=== PATIENT | female | born 1940 | race Caucasian/White ===

== ENCOUNTER → 2016-10-23 | Outpatient (REF) | payer MEDICARE ==
[2016-10-23 11:42] LABS: BASO # 0.1 K/mm3 (0.0-0.2); BASO % 1.4 % (0.0-1.0); EOS # 0.6 K/mm3 (0.0-0.50); EOS % 6.3 % (0.0-3.0); LYMPH # 2.3 K/mm3 (1.5-4.5); LYMPH % 22.4 % (24.0-44.0); MEAN CORPUSCULAR HEMOGLOBIN 28.6 pg (27.0-33.0); MEAN CORPUSCULAR HGB CONC 32.1 g/dl (32.0-36.5); MEAN CORPUSCULAR VOLUME 89.1 fl (80.0-96.0); MONO # 0.6 K/mm3 (0.0-0.8); MONO % 5.8 % (0.0-5.0); NEUTROPHILS # 5.9 K/mm3 (1.8-7.7); NEUTROPHILS % 62.2 % (36.0-66.0); WHITE BLOOD COUNT 9.4 K/mm3 (4.0-10.0)
[2016-10-23 11:59] LABS: ALBUMIN/GLOBULIN RATIO 0.65 (1.00-1.93); ALKALINE PHOSPHATASE 75 U/L (45-117); ALT/SGPT 18 U/L (12-78); ANION GAP 7 MEQ/L (8-16); AST/SGOT 13 U/L (15-37); BILIRUBIN,TOTAL 0.6 MG/DL (0.2-1.0); BLOOD UREA NITROGEN 24 MG/DL (7-18); CALCIUM LEVEL 8.5 MG/DL (8.8-10.2); CARBON DIOXIDE LEVEL 30 MEQ/L (21-32); CHLORIDE LEVEL 104 MEQ/L (98-107); CREATININE FOR GFR 0.86 MG/DL (0.55-1.02); GLOMERULAR FILTRATION RATE > 60.0 (>39); GLUCOSE, FASTING 145 MG/DL (83-110); POTASSIUM SERUM 4.5 MEQ/L (3.5-5.1); SODIUM LEVEL 141 MEQ/L (136-145); TOTAL PROTEIN 7.6 GM/DL (6.4-8.2)
== END ==
LOC: M LABDRAWC 11:27
PROVIDERS: ATTEND Internal Medicine
DX: N18.3 Chronic kidney disease, stage 3 (moderate) (principal); Z79.899 Other long term (current) drug therapy

== ENCOUNTER → 2017-01-02 | Outpatient (CLI) | payer MEDICARE ==
--- NOTE | 2017-01-02 12:02 | REP ---
Chest two views HISTORY: Dyspnea Comparison: None A calcified granuloma is present in the left lower lobe. The right lung is clear. The heart is normal in size. The pulmonary vasculature is normal in appearance. The bony structure is intact. IMPRESSION: No acute disease. Signed by Tarun Alcaraz MD 01/02/2017 11:53 A
== END ==
LOC: M WUC 11:34
PROVIDERS: ATTEND Internal Medicine Rheumatology
DX: M05.79 Rheumatoid arthritis with rheumatoid factor of multiple sites without organ or systems involvement (principal); R06.00 Dyspnea, unspecified

== ENCOUNTER → 2017-01-20 | Outpatient (CLI) | payer MEDICARE ==
--- NOTE | 2017-01-20 08:42 | REP ---
Clinical: Elevated liver function tests. Technique: Real time bowens scale ultrasound using curved array transducer. Findings: The liver demonstrates increased echogenicity and poor through transmission suggesting hepatocellular disease and fatty infiltration. No focal hepatic lesions are identified. The pancreas is normal in appearance. The gallbladder is unremarkable and without gallstones, wall thickening, or pericholecystic fluid. No biliary ductal dilatation is appreciated and the common bile duct measures 6 mm diameter. The right kidney is normal in reniform shape without hydronephrosis and measures 10.9 x 5.1 x 4.7 cm. No ascites. Impression: Hepatosteatosis and hepatocellular disease without focal hepatic lesion. Signed by Sabino Cardenas MD 01/20/2017 08:33 A
== END ==
LOC: M RAD 07:58
PROVIDERS: ATTEND Internal Medicine
DX: K76.0 Fatty (change of) liver, not elsewhere classified (principal)

== ENCOUNTER → 2017-03-13 | Outpatient (REF) | payer MEDICARE ==
[2017-03-13 12:01] LABS: ALBUMIN 3.1 GM/DL (3.2-5.2); ALBUMIN/GLOBULIN RATIO 0.67 (1.00-1.93); BILIRUBIN,DIRECT 0.1 MG/DL (0.0-0.2); BILIRUBIN,TOTAL 0.5 MG/DL (0.2-1.0); TOTAL PROTEIN 7.7 GM/DL (6.4-8.2)
== END ==
LOC: M LABDRAWC 11:00
PROVIDERS: ATTEND Internal Medicine
DX: K76.0 Fatty (change of) liver, not elsewhere classified (principal)

== ENCOUNTER → 2017-05-07 | Outpatient (REF) | payer MEDICARE ==
[2017-05-07 12:53] LABS: ANION GAP 11 MEQ/L (8-16); BLOOD UREA NITROGEN 33 MG/DL (7-18); CALCIUM LEVEL 8.9 MG/DL (8.8-10.2); CARBON DIOXIDE LEVEL 27 MEQ/L (21-32); CHLORIDE LEVEL 102 MEQ/L (98-107); CHOLESTEROL LEVEL 157 MG/DL (<200); CREATININE FOR GFR 0.95 MG/DL (0.55-1.02); GLOMERULAR FILTRATION RATE > 60.0 (>39); GLUCOSE, FASTING 152 MG/DL (83-110); POTASSIUM SERUM 4.4 MEQ/L (3.5-5.1); SODIUM LEVEL 140 MEQ/L (136-145); TRIGLYCERIDES LEVEL 93 MG/DL (<150)
[2017-05-07 13:03] LABS: BASO # 0.1 K/mm3 (0.0-0.2); BASO % 0.9 % (0.0-1.0); EOS # 0.5 K/mm3 (0.0-0.50); EOS % 4.7 % (0.0-3.0); LYMPH % 17.4 % (24.0-44.0); MEAN CORPUSCULAR HEMOGLOBIN 28.9 pg (27.0-33.0); MEAN CORPUSCULAR HGB CONC 33.1 g/dl (32.0-36.5); MEAN CORPUSCULAR VOLUME 87.2 fl (80.0-96.0); MONO # 0.7 K/mm3 (0.0-0.8); MONO % 5.8 % (0.0-5.0); NEUTROPHILS # 7.8 K/mm3 (1.8-7.7); NEUTROPHILS % 68.8 % (36.0-66.0); RED CELL DISTRIBUTION WIDTH 13.1 % (11.5-14.5); WHITE BLOOD COUNT 11.4 K/mm3 (4.0-10.0)
== END ==
LOC: M LABDRAWC 11:43
PROVIDERS: ATTEND Internal Medicine
DX: N18.3 Chronic kidney disease, stage 3 (moderate) (principal); E11.9 Type 2 diabetes mellitus without complications; E78.5 Hyperlipidemia, unspecified

== ENCOUNTER → 2017-05-07 | Outpatient (REF) | payer MEDICARE | LOC: M SFHCCLAY 08:17 | PROVIDERS: ATTEND Family Medicine | DX: E11.9 Type 2 diabetes mellitus without complications (principal) ==

== ENCOUNTER → 2017-09-02 | Outpatient (REF) | payer MEDICARE ==
[2017-09-02 11:29] LABS: HEMATOCRIT 42.7 % (36.0-47.0); HEMOGLOBIN 13.5 g/dl (12.0-16.0); MEAN CORPUSCULAR HEMOGLOBIN 27.6 pg (27.0-33.0); MEAN CORPUSCULAR HGB CONC 31.6 g/dl (32.0-36.5); MEAN CORPUSCULAR VOLUME 87.3 fl (80.0-96.0); PLATELET COUNT, AUTOMATED 448 10^3/uL (150-450); RED BLOOD COUNT 4.89 10^6/uL (4.00-5.40); RED CELL DISTRIBUTION WIDTH 13.6 % (11.5-14.5); WHITE BLOOD COUNT 10.8 10^3/uL (4.0-10.0)
[2017-09-02 11:32] LABS: APPEARANCE, URINE HAZY (CLEAR); BACTERIA, URINE AUTO NEGATIVE (NEGATIVE); BILIRUBIN, URINE AUTO NEGATIVE (NEGATIVE); BLOOD, URINE BLOOD NEGATIVE (NEGATIVE); COLOR, URINE YELLOW (YELLOW); GLUCOSE, URINE (UA) AUTO NEGATIVE (NEGATIVE); KETONE, URINE AUTO NEGATIVE (NEGATIVE); LEUKOCYTE ESTERASE, URINE AUTO NEGATIVE (NEGATIVE); NITRITE, URINE AUTO NEGATIVE (NEGATIVE); PROTEIN, URINE AUTO 2+ mg/dL (NEGATIVE); RBC, URINE AUTO 3 /HPF (0-3); SPECIFIC GRAVITY URINE AUTO 1.015 (1.002-1.035); SQUAMOUS EPITHELIAL CELL UR AU 3 /HPF (0-6); UROBILINOGEN, URINE AUTO 0.2 mg/dL (0.0-2.0); WBC, URINE AUTO 1 /HPF (0-3)
[2017-09-02 11:38] LABS: ALBUMIN 2.9 GM/DL (3.2-5.2); ALBUMIN/GLOBULIN RATIO 0.57 (1.00-1.93); ALKALINE PHOSPHATASE 76 U/L (45-117); ALT/SGPT 18 U/L (12-78); ANION GAP 7 MEQ/L (8-16); AST/SGOT 14 U/L (7-37); BILIRUBIN,TOTAL 0.4 MG/DL (0.2-1.0); BLOOD UREA NITROGEN 26 MG/DL (7-18); CALCIUM LEVEL 8.2 MG/DL (8.8-10.2); CARBON DIOXIDE LEVEL 30 MEQ/L (21-32); CHLORIDE LEVEL 105 MEQ/L (98-107); CREATININE FOR GFR 0.94 MG/DL (0.55-1.02); GLOMERULAR FILTRATION RATE > 60.0 (>39); GLUCOSE, FASTING 135 MG/DL (83-110); POTASSIUM SERUM 4.6 MEQ/L (3.5-5.1); SODIUM LEVEL 142 MEQ/L (136-145)
[2017-09-02 12:19] LABS: CREATININE, URINE 79.6 MG/DL; MAU/CREAT RATIO 1507.5 MCG/MG (0.0-30.0); URINE TOTAL PROTEIN 148.8 MG/DL (0-12)
[2017-09-04 13:24] LABS: UPEP INTERPRETATION M-SPIKE IN GAMMA; URINE VOLUME RANDOM ML
== END ==
LOC: M LAB REF 11:13
DX: N18.3 Chronic kidney disease, stage 3 (moderate) (principal); E11.9 Type 2 diabetes mellitus without complications; E55.9 Vitamin D deficiency, unspecified
CPT/HCPCS: 80053

== ENCOUNTER → 2017-09-02 | Outpatient (REF) | payer MEDICARE ==
[2017-09-02 11:45] LABS: ESTIMATED AVERAGE GLUCOSE 174 MG/DL (60-110); HEMOGLOBIN A1c 7.7 %
[2017-09-04 14:13] LABS: VITAMIN D 1,25 DIHYDROXY 32.6 pg/mL (19.9-79.3)
== END ==
LOC: M SFHCCLAY 08:25
DX: E11.9 Type 2 diabetes mellitus without complications (principal); E55.9 Vitamin D deficiency, unspecified

== ENCOUNTER → 2017-10-06 | Outpatient (CLI) | payer MEDICARE | LOC: M CLY 14:19 | DX: J40 Bronchitis, not specified as acute or chronic (principal); I51.7 Cardiomegaly; J98.4 Other disorders of lung | CPT/HCPCS: 71046; G0463 ==

== ENCOUNTER → 2017-10-24 | Outpatient (REF) | payer MEDICARE | LOC: M LAB REF 16:28 | DX: M54.5 Low back pain (principal); R31.9 Hematuria, unspecified | CPT/HCPCS: 87086 ==

== ENCOUNTER → 2017-12-01 | Outpatient (REF) | payer MEDICARE ==
[2017-12-01 11:27] LABS: ANION GAP 7 MEQ/L (8-16); BLOOD UREA NITROGEN 30 MG/DL (7-18); CALCIUM LEVEL 8.3 MG/DL (8.8-10.2); CARBON DIOXIDE LEVEL 28 MEQ/L (21-32); CHLORIDE LEVEL 107 MEQ/L (98-107); CREATININE FOR GFR 1.05 MG/DL (0.55-1.30); GLOMERULAR FILTRATION RATE 54.5 (>39); GLUCOSE, FASTING 147 MG/DL (70-100); POTASSIUM SERUM 4.6 MEQ/L (3.5-5.1); SODIUM LEVEL 142 MEQ/L (136-145)
[2017-12-01 11:32] LABS: ESTIMATED AVERAGE GLUCOSE 197 MG/DL (60-110); HEMOGLOBIN A1c 8.5 %
== END ==
LOC: M SFHCCLAY 08:17
DX: E11.9 Type 2 diabetes mellitus without complications (principal)
CPT/HCPCS: 83036

== ENCOUNTER → 2018-02-16 | Outpatient (REF) | payer MEDICARE ==
[2018-02-16 14:58] LABS: ANION GAP 13 MEQ/L (8-16); BLOOD UREA NITROGEN 26 MG/DL (7-18); CALCIUM LEVEL 8.8 MG/DL (8.8-10.2); CARBON DIOXIDE LEVEL 24 MEQ/L (21-32); CHLORIDE LEVEL 105 MEQ/L (98-107); CREATININE FOR GFR 0.91 MG/DL (0.55-1.30); GLOMERULAR FILTRATION RATE > 60.0 (>39); GLUCOSE, FASTING 116 MG/DL (70-100); POTASSIUM SERUM 4.6 MEQ/L (3.5-5.1); SODIUM LEVEL 142 MEQ/L (136-145)
[2018-02-16 16:44] LABS: ESTIMATED AVERAGE GLUCOSE 180 MG/DL (60-110); HEMOGLOBIN A1c 7.9 %
== END ==
LOC: M LABDRAWC 11:47
DX: M06.9 Rheumatoid arthritis, unspecified (principal); I10 Essential (primary) hypertension; E11.21 Type 2 diabetes mellitus with diabetic nephropathy; M85.80 Other specified disorders of bone density and structure, unspecified site

== ENCOUNTER → 2018-02-16 | Outpatient (REF) | payer MEDICARE ==
[2018-02-16 12:37] LABS: HEMOGLOBIN 12.5 g/dl (12.0-15.5); MEAN CORPUSCULAR HEMOGLOBIN 26.9 pg (27.0-33.0); MEAN CORPUSCULAR HGB CONC 32.1 g/dl (32.0-36.5); MEAN CORPUSCULAR VOLUME 83.9 fl (80.0-96.0); PLATELET COUNT, AUTOMATED 478 10^3/uL (150-450); RED BLOOD COUNT 4.65 10^6/uL (4.00-5.40); RED CELL DISTRIBUTION WIDTH 14.2 % (11.5-14.5); WHITE BLOOD COUNT 11.3 10^3/uL (4.0-10.0)
[2018-02-16 13:19] LABS: APPEARANCE, URINE CLEAR (CLEAR); BACTERIA, URINE AUTO NEGATIVE (NEGATIVE); BILIRUBIN, URINE AUTO NEGATIVE (NEGATIVE); BLOOD, URINE BLOOD NEGATIVE (NEGATIVE); COLOR, URINE COLORLESS (YELLOW); GLUCOSE, URINE (UA) AUTO NEGATIVE (NEGATIVE); KETONE, URINE AUTO NEGATIVE (NEGATIVE); LEUKOCYTE ESTERASE, URINE AUTO NEGATIVE (NEGATIVE); NITRITE, URINE AUTO NEGATIVE (NEGATIVE); PROTEIN, URINE AUTO NEGATIVE (NEGATIVE); RBC, URINE AUTO 1 /HPF (0-3); SPECIFIC GRAVITY URINE AUTO 1.005 (1.002-1.035); SQUAMOUS EPITHELIAL CELL UR AU 1 /HPF (0-6); UROBILINOGEN, URINE AUTO 0.2 mg/dL (0.0-2.0); WBC, URINE AUTO 0 /HPF (0-3)
[2018-02-16 13:41] LABS: ALBUMIN/GLOBULIN RATIO 0.61 (1.00-1.93); ALKALINE PHOSPHATASE 87 U/L (45-117); ALT/SGPT 35 U/L (12-78); ANION GAP 11 MEQ/L (8-16); AST/SGOT 16 U/L (7-37); BILIRUBIN,TOTAL 0.6 MG/DL (0.2-1.0); BLOOD UREA NITROGEN 27 MG/DL (7-18); CALCIUM LEVEL 8.7 MG/DL (8.8-10.2); CARBON DIOXIDE LEVEL 26 MEQ/L (21-32); CHLORIDE LEVEL 106 MEQ/L (98-107); CHOLESTEROL LEVEL 131 MG/DL (<200); CHOLESTEROL RISK RATIO 2.787 (<5); GLOMERULAR FILTRATION RATE > 60.0 (>39); GLUCOSE, FASTING 116 MG/DL (70-100); HDL CHOLESTEROL 47 MG/DL (>40); LDL CHOLESTEROL 68.2 MG/DL (<100); NON-HDL-C 84 MG/DL; POTASSIUM SERUM 4.7 MEQ/L (3.5-5.1); SODIUM LEVEL 143 MEQ/L (136-145); TOTAL PROTEIN 7.9 GM/DL (6.4-8.2); TRIGLYCERIDES LEVEL 79 MG/DL (<150)
[2018-02-16 13:45] LABS: CREATININE, URINE < 13.0 MG/DL; MALB URINE SIEMENS 96.7 MG/L
[2018-02-16 22:25] LABS: ESTIMATED AVERAGE GLUCOSE 169 MG/DL (60-110); HEMOGLOBIN A1c 7.5 %
== END ==
LOC: M LABDRAWC 11:43
DX: N18.3 Chronic kidney disease, stage 3 (moderate) (principal); E78.4 Other hyperlipidemia; R73.9 Hyperglycemia, unspecified
CPT/HCPCS: 80053

== ENCOUNTER → 2018-02-16 | Outpatient (REF) | payer MEDICARE | LOC: M SFHCCLAY 09:07 | DX: Z00.00 Encounter for general adult medical examination without abnormal findings (principal) ==

== ENCOUNTER → 2018-06-19 | Outpatient (REF) | payer MEDICARE ==
[2018-06-19 11:58] LABS: ESTIMATED AVERAGE GLUCOSE 169 MG/DL (60-110); HEMOGLOBIN A1c 7.5 %
[2018-06-19 12:20] LABS: ALKALINE PHOSPHATASE 91 U/L (45-117); ALT/SGPT 41 U/L (12-78); ANION GAP 12 MEQ/L (8-16); AST/SGOT 24 U/L (7-37); BILIRUBIN,TOTAL 0.5 MG/DL (0.2-1.0); BLOOD UREA NITROGEN 31 MG/DL (7-18); CALCIUM LEVEL 8.4 MG/DL (8.8-10.2); CARBON DIOXIDE LEVEL 25 MEQ/L (21-32); CHLORIDE LEVEL 104 MEQ/L (98-107); CREATININE FOR GFR 0.93 MG/DL (0.55-1.30); GLOMERULAR FILTRATION RATE > 60.0 (>39); GLUCOSE, FASTING 127 MG/DL (70-100); POTASSIUM SERUM 4.8 MEQ/L (3.5-5.1); SODIUM LEVEL 141 MEQ/L (136-145)
[2018-06-19 12:21] LABS: ALBUMIN 2.9 GM/DL (3.2-5.2); ALBUMIN/GLOBULIN RATIO 0.62 (1.00-1.93); TOTAL PROTEIN 7.6 GM/DL (6.4-8.2)
== END ==
LOC: M SFHCCLAY 09:01
DX: E11.9 Type 2 diabetes mellitus without complications (principal)
CPT/HCPCS: 80053

== ENCOUNTER → 2018-09-14 | Outpatient (REF) | payer MEDICARE ==
[2018-09-14 12:09] LABS: HEMOGLOBIN A1c 7.7 %
== END ==
LOC: M SFHCCLAY 09:04
PROVIDERS: ATTEND Family Medicine
DX: E11.9 Type 2 diabetes mellitus without complications (principal)

== ENCOUNTER → 2018-09-14 | Outpatient (REF) | payer MEDICARE ==
[2018-09-14 12:14] LABS: BLOOD UREA NITROGEN 26 MG/DL (7-18); CALCIUM LEVEL 8.5 MG/DL (8.8-10.2); CARBON DIOXIDE LEVEL 23 MEQ/L (21-32); CHLORIDE LEVEL 104 MEQ/L (98-107); CREATININE FOR GFR 0.92 MG/DL (0.55-1.30); GLOMERULAR FILTRATION RATE > 60.0 (>39); GLUCOSE, FASTING 147 MG/DL (70-100); POTASSIUM SERUM 4.7 MEQ/L (3.5-5.1); SODIUM LEVEL 139 MEQ/L (136-145)
[2018-09-14 12:48] LABS: CREATININE, URINE 21.1 MG/DL; MAU/CREAT RATIO 725.1 MCG/MG (0.0-30.0)
== END ==
LOC: M LABDRAWC 11:17
PROVIDERS: ATTEND Internal Medicine
DX: N18.3 Chronic kidney disease, stage 3 (moderate) (principal); E11.22 Type 2 diabetes mellitus with diabetic chronic kidney disease

== ENCOUNTER 2018-10-15 08:52 | Outpatient (CLI) | payer MEDICARE ==
[2018-10-15] VITALS (8 sets, daily range): BP systolic 140–180; BP diastolic 63–85
[2018-10-15] MEDS ORDERED: ACETAMINOPHEN 650MG PO PRIOR TO INFUSION PO ONE (10:00)
[2018-10-15] MEDS ORDERED: diphenhydrAMINE 25MG PO PRIOR TO INFUSION PO ONE (10:00)
[2018-10-15] MEDS ORDERED: inFLIXimab INJECTION 300 MG in NS 220 ML IV ONE (10:00)
[2018-10-15] MEDS ORDERED: FILTER 1.2 MICRON (ADULT TPN/MANNITOL/REMICADE) XX ONE (10:00)
[2018-10-15] MEDS ORDERED: NS 1,000 ML IV SCH (10:00)
== END 2018-10-15 12:55 | disposition home or self-care (01) ==
LOC: M INFU 08:52
PROVIDERS: ATTEND Internal Medicine Rheumatology
DX: M06.9 Rheumatoid arthritis, unspecified (principal)
CPT/HCPCS: 96413; 96415; J1745

== ENCOUNTER 2018-10-27 13:03 | Outpatient (CLI) | payer MEDICARE ==
[2018-10-27] VITALS (9 sets, daily range): BP systolic 142–189; BP diastolic 60–80
[2018-10-27] MEDS: ACETAMINOPHEN 650MG PO PRIOR TO INFUSION PO ONE ×2 (13:59→14:02)
[2018-10-27] MEDS: diphenhydrAMINE 25MG PO PRIOR TO INFUSION PO ONE ×2 (13:59→14:03)
[2018-10-27] MEDS ORDERED: FILTER 1.2 MICRON (ADULT TPN/MANNITOL/REMICADE) XX ONE (14:00)
[2018-10-27] MEDS ORDERED: inFLIXimab INJECTION 300 MG in NS 220 ML IV ONE (14:00)
[2018-10-27] MEDS ORDERED: NS 1,000 ML IV SCH (14:00)
== END 2018-10-27 16:30 | disposition home or self-care (01) ==
LOC: M INFU 13:03
PROVIDERS: ATTEND Internal Medicine Rheumatology
DX: M06.9 Rheumatoid arthritis, unspecified (principal)
CPT/HCPCS: 96413; 96415; J1745

== ENCOUNTER → 2018-12-09 | Outpatient (REF) | payer MEDICARE ==
[2018-12-09 16:45] LABS: BASO # 0.2 10^3/uL (0.0-0.2); BASO % 1.3 % (0.0-1.0); EOS # 0.7 10^3/uL (0.0-0.50); EOS % 4.6 % (0.0-3.0); HEMATOCRIT 41.5 % (36.0-47.0); LYMPH # 2.6 10^3/uL (1.5-4.5); LYMPH % 17.8 % (24.0-44.0); MEAN CORPUSCULAR HEMOGLOBIN 27.5 pg (27.0-33.0); MEAN CORPUSCULAR HGB CONC 31.3 g/dl (32.0-36.5); MEAN CORPUSCULAR VOLUME 87.9 fl (80.0-96.0); MONO # 1.3 10^3/uL (0.0-0.8); MONO % 9.3 % (0.0-5.0); NEUTROPHILS # 9.5 10^3/uL (1.8-7.7); NEUTROPHILS % 66.6 % (36.0-66.0); PLATELET COUNT, AUTOMATED 439 10^3/uL (150-450); RED BLOOD COUNT 4.72 10^6/uL (4.00-5.40); WHITE BLOOD COUNT 14.3 10^3/uL (4.0-10.0)
[2018-12-09 16:53] LABS: BILIRUBIN,TOTAL 0.4 MG/DL (0.2-1.0); C REACTIVE PROTEIN QUANTITATIV 1.62 MG/DL (0.00-0.30); CALCIUM LEVEL 8.5 MG/DL (8.8-10.2); CREATININE FOR GFR 1.15 MG/DL (0.55-1.30); GLOMERULAR FILTRATION RATE 48.8 (>39); POTASSIUM SERUM 4.7 MEQ/L (3.5-5.1); TOTAL PROTEIN 7.5 GM/DL (6.4-8.2)
[2018-12-09 18:37] LABS: ERYTHROCYTE SEDIMENTATION RATE 42 mm/hr (0-30)
== END ==
LOC: M SFHCPLAZ 14:13
PROVIDERS: ATTEND Internal Medicine Rheumatology
DX: M06.9 Rheumatoid arthritis, unspecified (principal)
CPT/HCPCS: 36415; 80053; 85025; 85652; 86140; G0463

== ENCOUNTER → 2019-03-08 | Outpatient (REF) | payer MEDICARE ==
[2019-03-08 11:55] LABS: BASO # 0.2 10^3/uL (0.0-0.2); BASO % 1.6 % (0.0-1.0); EOS # 0.6 10^3/uL (0.0-0.50); EOS % 6.3 % (0.0-3.0); HEMOGLOBIN 13.1 g/dl (12.0-15.5); LYMPH # 2.2 10^3/uL (1.5-4.5); LYMPH % 21.6 % (24.0-44.0); MEAN CORPUSCULAR HEMOGLOBIN 28.7 pg (27.0-33.0); MEAN CORPUSCULAR VOLUME 89.7 fl (80.0-96.0); MONO # 0.8 10^3/uL (0.0-0.8); MONO % 8.1 % (0.0-5.0); NEUTROPHILS # 6.3 10^3/uL (1.8-7.7); PLATELET COUNT, AUTOMATED 492 10^3/uL (150-450); RED BLOOD COUNT 4.57 10^6/uL (4.00-5.40); WHITE BLOOD COUNT 10.1 10^3/uL (4.0-10.0)
[2019-03-08 12:19] LABS: ERYTHROCYTE SEDIMENTATION RATE 40 mm/hr (0-30)
[2019-03-08 12:30] LABS: BILIRUBIN,TOTAL 0.5 MG/DL (0.2-1.0); C REACTIVE PROTEIN QUANTITATIV 1.23 MG/DL (0.00-0.30); CALCIUM LEVEL 8.8 MG/DL (8.8-10.2); CHOLESTEROL RISK RATIO 2.901 (<5); CREATININE FOR GFR 1.07 MG/DL (0.55-1.30); GLOMERULAR FILTRATION RATE 53.1 (>39); POTASSIUM SERUM 4.7 MEQ/L (3.5-5.1); TOTAL PROTEIN 7.5 GM/DL (6.4-8.2)
[2019-03-08 12:57] LABS: HEMOGLOBIN A1c 8.3 %
== END ==
LOC: M SFHCCLAY 08:46
PROVIDERS: ATTEND Family Medicine
DX: M06.9 Rheumatoid arthritis, unspecified (principal); E11.21 Type 2 diabetes mellitus with diabetic nephropathy

== ENCOUNTER 2019-04-01 10:55 | Outpatient (CLI) | payer MEDICARE ==
[~2019-04-01] VITALS: Ht 151.1 cm; Wt 75.0 kg
[2019-04-01 10:55] VITALS: BP 152/60
[2019-04-01] MEDS ORDERED: FILTER 1.2 MICRON (ADULT TPN/MANNITOL/REMICADE) XX ONE (11:15)
[2019-04-01] MEDS ORDERED: methylPREDNISolone INJ 40 MG/1 ML VIAL (J2920) IV ONE (11:30)
[2019-04-01] MEDS ORDERED: ACETAMINOPHEN 650MG ER TAB (TYLENOL ARTHRITIS) PO ONE (11:30)
[2019-04-01] MEDS ORDERED: NS 1,000 ML IV SCH (11:30)
[2019-04-01] MEDS ORDERED: diphenhydrAMINE 25 MG CAP PO ONE (11:30)
[2019-04-01] MEDS ORDERED: ALBUTEROL SULFATE 2.5 MG/0.5 ML INH NEB SOLN INH PRN (12:00)
[2019-04-01] MEDS ORDERED: inFLIXimab INJECTION 300 MG in NS 220 ML IV ONE (12:00)
[2019-04-01] MEDS ORDERED: methylPREDNISolone INJ 125 MG/2 ML VIAL (J2930) IV PRN (12:00)
[2019-04-01] MEDS ORDERED: EPINEPHrine INJ 1 MG/ML 1ML AMP IM PRN (12:00)
[2019-04-01] MEDS ORDERED: diphenhydrAMINE INJ 50MG/ML VIAL (J1200) IV PRN (12:00)
[2019-04-01] MEDS ORDERED: PROPOFOL 200 MG/20 ML VIAL As Ordered ONE (12:20)
[2019-04-01] MEDS ORDERED: LIDOCAINE 2% INJ 100 MG/5 ML SDV (FOR ANES.) As Ordered ONE (12:20)
[2019-04-01 13:10] VITALS: BP 140/65
[2019-04-01] MEDS ORDERED: ACCU40TA PO (13:48)
[2019-04-01] MEDS ORDERED: NORV5TAB PO (13:48)
[2019-04-01] MEDS ORDERED: CLAR5TAB11 PO (13:52)
[2019-04-01] MEDS ORDERED: GLIM2TAB PO (13:52)
[2019-04-01] MEDS ORDERED: PRED20TA PO (13:52)
[2019-04-01] MEDS ORDERED: LASI20TA3 PO (13:52)
[2019-04-01 13:55] VITALS: BP 139/65
[2019-04-01 14:10] VITALS: BP 128/72
== END 2019-04-01 14:10 | disposition home or self-care (01) ==
LOC: M INFU 10:55
PROVIDERS: ATTEND Internal Medicine Rheumatology
DX: M06.9 Rheumatoid arthritis, unspecified (principal)
CPT/HCPCS: 96413; J1745; J2920

== ENCOUNTER 2019-05-27 10:48 | Outpatient (CLI) | payer MEDICARE ==
[~2019-05-27] VITALS: Ht 149.9 cm; Wt 76.7 kg
[~2019-05-27 10:48] MED LIST: ACCU40TA PO; CLAR5TAB11 PO; GLIM2TAB PO; LASI20TA3 PO; NORV5TAB PO; PRED20TA PO
[2019-05-27 10:50] VITALS: BP 167/59
[2019-05-27] MEDS ORDERED: NS 1,000 ML IV SCH (11:30)
[2019-05-27] MEDS ORDERED: diphenhydrAMINE 25 MG CAP PO ONE (11:30)
[2019-05-27] MEDS ORDERED: ACETAMINOPHEN 650MG ER TAB (TYLENOL ARTHRITIS) PO ONE (11:30)
[2019-05-27] MEDS ORDERED: EPINEPHrine INJ 1 MG/ML 1ML AMP IM PRN (11:30)
[2019-05-27] MEDS ORDERED: ALBUTEROL SULFATE 2.5 MG/0.5 ML INH NEB SOLN INH PRN (11:30)
[2019-05-27] MEDS ORDERED: methylPREDNISolone INJ 125 MG/2 ML VIAL (J2930) IV PRN (11:30)
[2019-05-27] MEDS ORDERED: inFLIXimab INJECTION 300 MG in NS 220 ML IV ONE (11:30)
[2019-05-27] MEDS ORDERED: FILTER 1.2 MICRON (ADULT TPN/MANNITOL/REMICADE) XX ONE (11:30)
[2019-05-27] MEDS ORDERED: diphenhydrAMINE INJ 50MG/ML VIAL (J1200) IV PRN (11:30)
[2019-05-27 11:55] VITALS: BP 141/72
[2019-05-27] MEDS ORDERED: methylPREDNISolone INJ 125 MG/2 ML VIAL (J2930) IV ONE (12:00)
[2019-05-27 12:55] VITALS: BP 147/79
== END 2019-05-27 12:55 | disposition home or self-care (01) ==
LOC: M INFU 10:48
PROVIDERS: ATTEND Internal Medicine Rheumatology
DX: M06.9 Rheumatoid arthritis, unspecified (principal)
CPT/HCPCS: 96375; 96413; J1745; J2930

== ENCOUNTER → 2019-06-07 | Outpatient (REF) | payer MEDICARE ==
[~2019-06-07] MED LIST changes: -GLIM2TAB PO; +GLIM2TAB4 PO; +INFL10VL IV
[2019-06-07 12:23] LABS: HEMOGLOBIN A1c 8.1 %
[2019-06-07 12:30] LABS: CALCIUM LEVEL 8.7 MG/DL (8.8-10.2); CREATININE FOR GFR 1.05 MG/DL (0.55-1.30); GLOMERULAR FILTRATION RATE 54.2 (>39); POTASSIUM SERUM 4.6 MEQ/L (3.5-5.1)
[2019-06-08 15:25] LABS: ALBUMIN 3.1 GM/DL (3.2-5.2); BILIRUBIN,DIRECT 0.1 MG/DL (0.0-0.2); BILIRUBIN,TOTAL 0.5 MG/DL (0.2-1.0); C REACTIVE PROTEIN QUANTITATIV 1.1 MG/DL (0.00-0.30); TOTAL PROTEIN 7.2 GM/DL (6.4-8.2)
== END ==
LOC: M SFHCCLAY 09:00
PROVIDERS: ATTEND Family Medicine
DX: E11.9 Type 2 diabetes mellitus without complications (principal); I10 Essential (primary) hypertension; M06.9 Rheumatoid arthritis, unspecified

== ENCOUNTER 2019-07-22 10:51 | Outpatient (CLI) | payer MEDICARE ==
[~2019-07-22] VITALS: Ht 149.9 cm; Wt 76.7 kg
[~2019-07-22 10:51] MED LIST changes: +GLIM2TAB2 PO; -GLIM2TAB4 PO; -INFL10VL IV
[2019-07-22 10:55] VITALS: BP 147/69
[2019-07-22] MEDS ORDERED: FILTER 1.2 MICRON (ADULT TPN/MANNITOL/REMICADE) XX ONE (11:15)
[2019-07-22] MEDS ORDERED: ALBUTEROL SULFATE 2.5 MG/0.5 ML INH NEB SOLN INH PRN (11:15)
[2019-07-22] MEDS ORDERED: diphenhydrAMINE 25 MG CAP PO ONE (11:15)
[2019-07-22] MEDS ORDERED: EPINEPHrine INJ 1 MG/ML 1ML AMP IM PRN (11:15)
[2019-07-22] MEDS ORDERED: ACETAMINOPHEN 650MG ER TAB (TYLENOL ARTHRITIS) PO ONE (11:15)
[2019-07-22] MEDS ORDERED: NS 1,000 ML IV SCH (11:15)
[2019-07-22] MEDS ORDERED: methylPREDNISolone INJ 125 MG/2 ML VIAL (J2930) IV PRN (11:15)
[2019-07-22] MEDS ORDERED: diphenhydrAMINE INJ 50MG/ML VIAL (J1200) IV PRN (11:15)
[2019-07-22] MEDS ORDERED: inFLIXimab INJECTION 300 MG in NS 220 ML IV ONE (11:30)
[2019-07-22] MEDS ORDERED: INFL10VL IV (11:48)
[2019-07-22 13:00] VITALS: BP 140/70
== END 2019-07-22 13:00 | disposition home or self-care (01) ==
LOC: M INFU 10:51
PROVIDERS: ATTEND Internal Medicine Rheumatology
DX: M06.9 Rheumatoid arthritis, unspecified (principal)
CPT/HCPCS: 96413; J1745

== ENCOUNTER → 2019-09-20 | Outpatient (REF) | payer MEDICARE ==
[~2019-09-20] MED LIST changes: -GLIM2TAB2 PO; +GLIM2TAB4 PO; +INFL10VL IV
[2019-09-20 11:42] LABS: BASO # 0.2 10^3/uL (0.0-0.2); BASO % 1.3 % (0.0-1.0); EOS # 0.6 10^3/uL (0.0-0.5); EOS % 4.5 % (0.0-3.0); HEMOGLOBIN 12.2 g/dl (12.0-15.5); LYMPH # 2.2 10^3/uL (1.5-5.0); LYMPH % 17.8 % (24.0-44.0); MEAN CORPUSCULAR HEMOGLOBIN 28.3 pg (27.0-33.0); MEAN CORPUSCULAR HGB CONC 31.3 g/dl (32.0-36.5); MEAN CORPUSCULAR VOLUME 90.5 fl (80.0-96.0); MONO # 1.1 10^3/uL (0.0-0.8); MONO % 8.9 % (0.0-5.0); NEUTROPHILS # 8.4 10^3/uL (1.5-8.5); NEUTROPHILS % 67.3 % (36.0-66.0); PLATELET COUNT, AUTOMATED 467 10^3/uL (150-450); RED BLOOD COUNT 4.31 10^6/uL (4.00-5.40); WHITE BLOOD COUNT 12.5 10^3/uL (4.0-10.0)
[2019-09-20 12:08] LABS: ALBUMIN 2.9 GM/DL (3.2-5.2); BILIRUBIN,DIRECT 0.2 MG/DL (0.0-0.2); BILIRUBIN,TOTAL 0.5 MG/DL (0.2-1.0); C REACTIVE PROTEIN QUANTITATIV 2.72 MG/DL (0.00-0.30); CALCIUM LEVEL 8.5 MG/DL (8.8-10.2); CREATININE FOR GFR 1.05 MG/DL (0.55-1.30); GLOMERULAR FILTRATION RATE 54.2 (>39); POTASSIUM SERUM 4.6 MEQ/L (3.5-5.1); TOTAL PROTEIN 7.6 GM/DL (6.4-8.2)
[2019-09-20 12:11] LABS: HEMOGLOBIN A1c 7.5 %
== END ==
LOC: M SFHCCLAY 08:12
PROVIDERS: ATTEND Family Medicine
DX: M06.9 Rheumatoid arthritis, unspecified (principal); E11.9 Type 2 diabetes mellitus without complications

== ENCOUNTER 2019-09-22 10:30 | Outpatient (CLI) | payer MEDICARE ==
[~2019-09-22] VITALS: Ht 149.9 cm; Wt 76.7 kg
[2019-09-22 10:35] VITALS: BP 158/68
[2019-09-22] MEDS ORDERED: NS 1,000 ML IV SCH (10:45)
[2019-09-22] MEDS ORDERED: methylPREDNISolone INJ 125 MG/2 ML VIAL (J2930) IV PRN (10:45)
[2019-09-22] MEDS ORDERED: ACETAMINOPHEN 650MG ER TAB (TYLENOL ARTHRITIS) PO ONE (10:45)
[2019-09-22] MEDS ORDERED: diphenhydrAMINE INJ 50MG/ML VIAL (J1200) IV PRN (10:45)
[2019-09-22] MEDS ORDERED: diphenhydrAMINE 25 MG CAP PO ONE (10:45)
[2019-09-22] MEDS ORDERED: ALBUTEROL SULFATE 2.5 MG/0.5 ML INH NEB SOLN INH PRN (10:45)
[2019-09-22] MEDS ORDERED: EPINEPHrine INJ 1 MG/ML 1ML VIAL IM PRN (10:45)
[2019-09-22] MEDS ORDERED: inFLIXimab INJECTION 300 MG in NS 220 ML IV ONE (11:00)
[2019-09-22 12:18] VITALS: BP 150/70
== END 2019-09-22 12:18 | disposition home or self-care (01) ==
LOC: M INFU 10:30
PROVIDERS: ATTEND Internal Medicine Rheumatology
DX: M06.9 Rheumatoid arthritis, unspecified (principal)
CPT/HCPCS: 96413; J1745

== ENCOUNTER 2019-10-12 21:34 | Inpatient (IN) | payer MEDICARE ==
[~2019-10-12] VITALS: Ht 152.4 cm; Wt 73.2 kg
[2019-10-12 22:00] LABS: BASO # 0.2 10^3/uL (0.0-0.2); BASO % 0.6 % (0.0-1.0); EOS # 0.2 10^3/uL (0.0-0.5); EOS % 0.6 % (0.0-3.0); HEMATOCRIT 36.9 % (36.0-47.0); LYMPH # 2.3 10^3/uL (1.5-5.0); MEAN CORPUSCULAR HGB CONC 29.8 g/dl (32.0-36.5); MEAN CORPUSCULAR VOLUME 90.7 fl (80.0-96.0); MONO % 10.8 % (0.0-5.0); NEUTROPHILS % 77.2 % (36.0-66.0); PLATELET COUNT, AUTOMATED 613 10^3/uL (150-450); RED BLOOD COUNT 4.07 10^6/uL (4.00-5.40); WHITE BLOOD COUNT 23.3 10^3/uL (4.0-10.0)
[2019-10-12 22:24] LABS: MONO # 2.5 10^3/uL (0.0-0.8)
[2019-10-12] MEDS ORDERED: IPRATROPIUM 0.5MG/ALBUTEROL 2.5MG INH SOL UD 3ML (DUONEB)(J7620) NEB ONE ×2 (22:30→23:15)
[2019-10-12 22:38] LABS: ALBUMIN 2.4 GM/DL (3.2-5.2); BILIRUBIN,DIRECT 0.1 MG/DL (0.0-0.2); BILIRUBIN,TOTAL 0.3 MG/DL (0.2-1.0); CALCIUM LEVEL 8.3 MG/DL (8.8-10.2); CK-MB VALUE MASS 1.4 NG/ML (<3.6); CREATININE FOR GFR 1.67 MG/DL (0.55-1.30); GLOMERULAR FILTRATION RATE 31.8 (>39); MB/CK RELATIVE INDEX 1.92 (< OR =4); POTASSIUM SERUM 5.4 MEQ/L (3.5-5.1); THYROID STIMULATING HORMONE 0.231 uIU/ML (0.358-3.740); TOTAL PROTEIN 7.4 GM/DL (6.4-8.2); TROPONIN I 0.03 NG/ML (< 0.10)
[2019-10-12 22:50] LABS: ABG BASE EXCESS -5.7 (-2.0-2.0); ABG HCO3 20.8 MEQ/L (22.0-26.0); ABG O2 SATURATION 98.2 % (95.0-99.0); ABG PARTIAL PRESSURE CO2 44.8 mmHg (35.0-45.0); ABG PARTIAL PRESSURE O2 136.6 mmHg (75.0-100.0); ABG STANDARD HCO3 19.8 MEQ/L (22.0-26.0); ABG TOTAL CO2 22.2 MEQ/L (23.0-31.0); ABG pH (ARTERIAL) 7.285 UNITS (7.350-7.450)
[2019-10-12] MEDS ORDERED: FUROSEMIDE 20 MG/2 ML VIAL (J1940) IV ONE (23:15)
--- NOTE | 2019-10-12 23:53 | REPVR ---
PROCEDURE INFORMATION: Exam: CT Head Without Contrast Exam date and time: 10/12/2019 10:22 PM Age: 78 years old Clinical indication: Altered mental status/memory loss; Confusion or disorientation TECHNIQUE: Imaging protocol: Computed tomography of the head without contrast. Radiation optimization: All CT scans at this facility use at least one of these dose optimization techniques: automated exposure control; mA and/or kV adjustment per patient size (includes targeted exams where dose is matched to clinical indication); or iterative reconstruction. COMPARISON: No relevant prior studies available. FINDINGS: Limitations: Motion artifact does moderately limit the sensitivity of this examination. Brain: Bilateral occipital lobe chronic infarcts. Moderate chronic white matter disease and cerebral volume loss. Ventricles: Right lateral ventricle ex vacuo dilatation from volume loss. Bones/joints: Unremarkable. No acute fracture. Sinuses: Visualized sinuses are unremarkable. No fluid levels. Mastoid air cells: Visualized mastoid air cells are well aerated. Soft tissues: Unremarkable. IMPRESSION: Bilateral occipital lobe chronic infarcts. Electronically signed by: David Roldan On 10/12/2019 23:52:53 PM
[2019-10-13] VITALS (22 sets, daily range): BP systolic 85–180; BP diastolic 49–105
[2019-10-13] MEDS ORDERED: QUIN20TA48 PO (00:08)
[2019-10-13] MEDS ORDERED: GLIM1TAB4 PO (00:08)
[2019-10-13] MEDS ORDERED: LORA-622 PO (00:08)
[2019-10-13] MEDS ORDERED: TYLE650T38 PO (00:08)
[2019-10-13] MEDS ORDERED: AMLO5TAB6 PO (00:08)
[2019-10-13] MEDS ORDERED: TOBRSUS8 OU (00:10)
[2019-10-13] MEDS ORDERED: TACR0.1O4 EXT (00:10)
[2019-10-13] MEDS ORDERED: ALRE0.5S OU (00:10)
--- NOTE | 2019-10-13 00:32 | HPEPDOC ---
General Date of Admission 10/12/19 Date of Service: Oct 13, 2019 Chief Complaint The patient is a 78-year-old female admitted with a reason for visit of Rapid Heart Rate. Source: Patient Exam Limitations: Mild cognitive slowing Timing/Duration: 24 hours, Week(s) Severity: Moderate History of Present Illness Patient is 78 years old female with past medical history of rheumatoid arthritis, type 2 diabetes, hypertension presented to the hospital with altered mental status. According to family members patient developed mechanical fall yesterday and after that she was mentally confused. In emergency room CT head was done and it was negative for acute bleed, positive for bilateral occipital lobe chronic infarcts. Also patient was found to have atrial fibrillation with rapid ventricular rate, after labetalol heart rate became sinus. Also patient was found to have white blood count of 23, lactic acid of 2.3, BNP around 3500, creatinine 1.6. X-ray showed large left pleural effusion/ infiltrate. CT chest showed Left lower lobe pneumonia, small bilateral pleural effusions, cardiomegaly with large pericardial effusion Also patient developed acute hypoxemic respiratory failure. Home Medications Scheduled Acetaminophen (Tylenol 8 Hour) 650 Mg Tablet.er, 650 MG PO ASDIRECTED, (Reported) 30 MINUTES PRIOR TO INFUSION Amlodipine Besylate (Amlodipine Besylate) 5 Mg Tablet, 5 MG PO DAILY, (Reported) Furosemide (Lasix) 20 Mg Tablet, 20 MG PO DAILY, (Reported) SCRIPT SAYS TWICE A DAY BUT PATIENT ONLY TAKES ONCE A DAY Glimepiride (Glimepiride) 1 Mg Tablet, 1 MG PO DAILY, (Reported) Infliximab Injection (Remicade) 100 Mg Vial, 100 MG IV ASDIRECTED, (Reported) EVERY 8 WEEKS: PATIENT STATES LAST DOSE HAS BEEN 3 WEEKS AGO Loratadine (Loratadine) 10 Mg Tablet, 10 MG PO DAILY, (Reported) Loteprednol Etabonate (Alrex) 0.2% 5ML Drops.susp, 1 DROP OU TID, (Reported) Quinapril HCl (Quinapril HCl) 20 Mg Tablet, 40 MG PO DAILY, (Reported) Tacrolimus (Tacrolimus) 30 Gm Oint...g., 1 DOSE EXT BID, (Reported) THIN BEAD TO UPPER AND LOWER EYELIDS Tobramycin/Dexamethasone (Tobramycin-Dexameth Ophth Susp) 5 Ml Drops.susp, 1 DROP OU TID, (Reported) Allergies Coded Allergies: No Known Allergies (Unverified , 10/15/18) Past Medical History Medical History DM WITH MICROALBUMINURIA AND RETINOPATHY RA HTN OSTEOPENIA FATTY LIVER DISEASE Family History I personally reviewed the family history and found not pertinent Social History * Smoker: former Smoker Alcohol: Denies Drugs: denies A-FIB/CHADSVASC A-FIB History Current/History of A-Fib/PAF?: Yes Current PO Anticoag Therapy: Yes Age/Risk Factor Scoring CHADSVASC: CHADSVASC Response (Comments) Value Age Risk Factor Age 65-74 years old 1 Gender Risk Factor Female 1 Hx of HTN Yes 1 Hx of Stroke/TIA/or VTE Yes 2 Hx of Diabetes Yes 1 Total 6 Review of Systems Constitutional: Denies: Chills, Fever Eyes: Denies: Pain ENT: Denies: Head Aches Skin: Denies: Rash Pulmonary: Reports: Dyspnea Cardiovascular: Reports: Palpitations; Denies: Chest Pain Gastrointestinal: Denies: Vomiting Genitourinary: Reports: Dysuria Hematologic: Denies: Bruising Endocrine: Denies: Polydipsia, Polyphagia Musculoskeletal: Denies: Neck Pain, Back Pain Neurological: Denies: Weakness, Numbness Psych: Reports: Mood Normal, Other Psych (slightly confused) Physical Examination General Exam: Positive: Mild Distress, Other (confused female); Negative: Alert, Cooperative Eye Exam: Positive: PERRLA, Other Eye Symptoms (redness of both eyes) ENT Exam: Positive: Atraumatic Neck Exam: Positive: Supple, JVD Chest Exam: Positive: Diminished Heart Exam: Positive: Rate Normal Telemetry: Positive: Sinus Abdomen Exam: Positive: Normal bowel sounds Extremity Exam: Negative: Clubbing, Cyanosis Neuro Exam: Positive: Normal Speech, Cranial Nerves 3-12 NL Psych Exam: Positive: Other (patient confused); Negative: Mental status NL Vital Signs Vital Signs Date Time Temp Pulse Resp B/P (MAP) Pulse Ox O2 Delivery O2 Flow Rate FiO2 10/12/19 23:18 73 20 10/12/19 23:04 95 10/12/19 22:34 Nasal Cannula 4.0 10/12/19 22:30 174/76 (108) 10/12/19 22:03 98.0 Laboratory Data Labs 24H Laboratory Tests 2 10/12/19 21:48: Immature Granulocyte % (Auto) 0.8, Neutrophils (%) (Auto) 77.2H, Lymphocytes (%) (Auto) 10.0L, Monocytes (%) (Auto) 10.8H, Eosinophils (%) (Auto) 0.6, Basophils (%) (Auto) 0.6, Neutrophils # (Auto) 18.0H, Lymphocytes # (Auto) 2.3, Monocytes # (Auto) 2.5H, Eosinophils # (Auto) 0.2, Basophils # (Auto) 0.2, Nucleated Red Blood Cells % (auto) 0.0, Anion Gap 9, Glomerular Filtration Rate 31.8L, Lactic Acid Level 2.1*H, Calcium Level 8.3L, Total Bilirubin 0.3, Direct Bilirubin 0.1, Aspartate Amino Transf (AST/SGOT) 34, Alanine Aminotransferase (ALT/SGPT) 83H, Alkaline Phosphatase 140H, Ammonia 44H, Total Creatine Kinase 73, Creatine Kinase MB 1.4, Creatine Kinase MB Relative Index 1.92, Troponin I 0.03, OP-Ppy-G-Type Natriuretic Peptide 3512H, Total Protein 7.4, Albumin 2.4L, Albumin/Globulin Ratio 0.48L, Thyroid Stimulating Hormone (TSH) 0.231L 10/12/19 22:08: Bedside Glucose (Misc Panel) 188H 10/12/19 22:27: Blood Gas Bicarbonate Standard 19.8L, Arterial Blood pH 7.285L, Arterial Blood Partial Pressure CO2 44.8, Arterial Blood Partial Pressure O2 136.6H, Arterial Blood Total CO2 22.2L, Arterial Blood HCO3 20.8L, Arterial Blood Base Excess - 5.7L, Arterial Blood Oxygen Saturation 98.2 CBC/BMP Laboratory Tests 10/12/19 21:48 Assessment/Plan Patient is 78 years old female with past medical history of rheumatoid arthritis, type 2 diabetes, hypertension presented to the hospital with altered mental status. According to family members patient developed mechanical fall yesterday and after that she was mentally confused. In emergency room CT head was done and it was negative for acute bleed, positive for bilateral occipital lobe chronic infarcts. Also patient was found to have atrial fibrillation with rapid ventricular rate, after labetalol heart rate became sinus. Also patient was found to have white blood count of 23, lactic acid of 2.3, BNP around 3500, creatinine 1.6. CT chest showed Left lower lobe pneumonia with cardiomegaly with large pericardial effusion Problems (1) Sepsis Status: Acute Problem Text: 2/2 PNA elevated WBC, LA, dyspnea ABs blood Cx (2) Pericardial effusion Status: Acute Problem Text: most likely 2/2 infection vs acute CHF Consider thoracic surgeon consult for pericardiocentesis (3) Acute metabolic encephalopathy Status: Acute Problem Text: CT head negative Secondary to hypoxemia due to large pericardial effusion, acute CHF, sepsis 2/2 PNA (4) Acute hypoxemic respiratory failure Status: Acute Problem Text: Most likely secondary to PNA, pericardial effusion, acute CHF chest CT showed: Left lower lobe pneumonia, Small bilateral pleural effusions. Cardiomegaly with large pericardial effusion. Patient has significant white blood count elevation I started ceftriaxone and azithromycin Inhalers (5) Diabetes mellitus Problem Text: Insulin sliding scale Diabetes diet (6) Atrial fibrillation Status: Acute Problem Text: Patient developed atrial fibrillation with rapid ventricular rate on admission most likely 2/2 pericardial effusion I hold anticoagulation due to possible pericardiocentesis After labetalol atrial fibrillation was converted to sinus rhythm. She has never been diagnosed with atrial fibrillation. However patient had multiple occipital infarcts in the past. Telemetry (7) Pneumonia Status: Acute Problem Text: CT showed large left lobe infiltrate ABs started Inhalers Plan / VTE VTE Prophylaxis Ordered?: Yes AYANA LANGSTON DO Oct 13, 2019 00:32
[2019-10-13] MEDS ORDERED: DEXTROSE 50% 50 ML SYRINGE IV PRN (01:00)
[2019-10-13] MEDS ORDERED: GLUCAGON FOR INJ 1 MG VIAL (J1610) SC PRN (01:00)
[2019-10-13] MEDS ORDERED: GLUCOSE 4 GM CHEW TABLET PO PRN (01:00)
[2019-10-13 01:23] LABS: ABG BASE EXCESS -4.1 (-2.0-2.0); ABG O2 SATURATION 95.6 % (95.0-99.0); ABG PARTIAL PRESSURE CO2 51.1 mmHg (35.0-45.0); ABG PARTIAL PRESSURE O2 89.2 mmHg (75.0-100.0); ABG STANDARD HCO3 21.1 MEQ/L (22.0-26.0); ABG TOTAL CO2 24.6 MEQ/L (23.0-31.0); ABG pH (ARTERIAL) 7.272 UNITS (7.350-7.450)
--- NOTE | 2019-10-13 01:36 | REPVR ---
PROCEDURE INFORMATION: Exam: CT Chest Without Contrast Exam date and time: 10/13/2019 12:30 AM Age: 78 years old Clinical indication: Shortness of breath; Additional info: Pneumonia TECHNIQUE: Imaging protocol: Computed tomography of the chest without contrast. 3D rendering: MIP and/or 3D reconstructed images were created by the technologist. Radiation optimization: All CT scans at this facility use at least one of these dose optimization techniques: automated exposure control; mA and/or kV adjustment per patient size (includes targeted exams where dose is matched to clinical indication); or iterative reconstruction. COMPARISON: CR Chest, 2 view PA, Lat 10/12/2019 10:47 PM FINDINGS: Lungs: Airspace consolidation in the posterior left lower lobe. Patchy areas of atelectasis and nonspecific groundglass opacities elsewhere in both lungs. Pleural space: Small bilateral pleural effusions. Heart: Large pericardial effusion. Mild cardiomegaly. Dense calcifications in the mitral valve annulus. Aorta: Unremarkable. No aortic aneurysm. Lymph nodes: Unremarkable. No enlarged lymph nodes. Bones/joints: Unremarkable. No acute fracture. Soft tissues: Unremarkable. IMPRESSION: 1. Left lower lobe pneumonia. 2. Small bilateral pleural effusions. 3. Cardiomegaly with large pericardial effusion. 4. Groundglass opacities in both lungs are nonspecific but may be secondary to small airways disease and air trapping. Electronically signed by: Anthoyn Ramon On 10/13/2019 01:36:01 AM
[2019-10-13] MEDS: METOPROLOL 5 MG/5 ML VIAL IV SCH ×3 (01:38→02:07)
[2019-10-13] MEDS ORDERED: DEXTROSE 50% 50 ML SYRINGE IV STA (01:46)
[2019-10-13] MEDS ORDERED: HumuLIN R (REGULAR) INSULIN (NovoLIN R) **100U/ML** PER UNIT IV STA (01:46)
[2019-10-13] MEDS ORDERED: CALCIUM GLUCONATE 1,000MG/10ML VIAL (100MG/ML) (J0610) As Ordered ONE (01:51)
[2019-10-13] MEDS ORDERED: CALCIUM GLUCONATE 1,000 MG in D5W MINI-BAG PLUS 100 ML IV ONE (02:00)
[2019-10-13] MEDS ORDERED: cefTRIAXone SOD 1 GM in D5W MINI-BAG PLUS 50 ML IV ONE (02:00)
[2019-10-13] MEDS ORDERED: DIGOXIN INJ 0.5 MG/2 ML AMP (J1160) IV STA ×3 (02:35→19:25)
[2019-10-13] MEDS ORDERED: hydrOXYzine 10 MG TAB PO STA (02:43)
[2019-10-13] MEDS ORDERED: AZITHROMYCIN INJ 500 MG, VIAL MATE ADAPTER 1 EACH in D5W 250 ML IV ONE (03:00)
[2019-10-13 05:04] LABS: HEMATOCRIT 34.4 % (36.0-47.0); HEMOGLOBIN 10.6 g/dl (12.0-15.5); MEAN CORPUSCULAR HEMOGLOBIN 27.7 pg (27.0-33.0); MEAN CORPUSCULAR HGB CONC 30.8 g/dl (32.0-36.5); MEAN CORPUSCULAR VOLUME 89.8 fl (80.0-96.0); PLATELET COUNT, AUTOMATED 598 10^3/uL (150-450); RED BLOOD COUNT 3.83 10^6/uL (4.00-5.40); WHITE BLOOD COUNT 22.1 10^3/uL (4.0-10.0)
[2019-10-13 05:22] LABS: CALCIUM LEVEL 8.2 MG/DL (8.8-10.2); CREATININE FOR GFR 1.57 MG/DL (0.55-1.30); GLOMERULAR FILTRATION RATE 34.1 (>39); POTASSIUM SERUM 4.9 MEQ/L (3.5-5.1)
[2019-10-13] MEDS ORDERED: MUPIROCIN 2% OINT 22 GM TUBE TOP ONE (06:00)
[2019-10-13] MEDS ORDERED: METOPROLOL TART 12.5 MG PER 1/2 TAB PO SCH (06:00)
[2019-10-13] MEDS: HumaLOG INSULIN (NovoLOG) PER UNIT SC SCH ×2 (07:30→12:00)
[2019-10-13 07:58] LABS: FREE T4 1.22 NG/DL (0.76-1.46)
[2019-10-13] MEDS: DOXYCYCLINE HYCLATE 100 MG in D5W MINI-BAG PLUS 100 ML IV SCH ×2 (08:00→19:56)
[2019-10-13] MEDS ORDERED: RIVAROXABAN 20 MG TAB (XARELTO) PO SCH (08:00)
--- NOTE | 2019-10-13 08:00 | REP ---
Clinical: Shortness of breath. Technique: PA and lateral. Comparison: 10/06/2017. Findings: Cardiomegaly. Bilateral lower lobe consolidations and pleural effusions (left greater than right). No pneumothorax. Skeletal structures intact. Impression: Lower lobe consolidations and effusions (left greater than right). Electronically Signed by Sabino Cardenas MD 10/13/2019 07:51 A
[2019-10-13] MEDS ORDERED: LORATADINE 10 MG TAB PO SCH (09:00)
[2019-10-13] MEDS ORDERED: HEPARIN SOD (PORCINE) 5000 UNITS/ML VIAL (J1644 PER 1000UNITS) SC SCH (09:00)
[2019-10-13] MEDS ORDERED: amLODIPine 5 MG TAB PO SCH (09:00)
[2019-10-13] MEDS ORDERED: HEPARIN SOD (PORCINE) 5000 UNITS/ML VIAL (J1644 PER 1000UNITS) SQ SCH (09:00)
[2019-10-13] MEDS ORDERED: QUINAPRIL 20 MG TAB PO SCH (09:00)
[2019-10-13] MEDS: TOBRADEX OPHTH SUSP 2.5 ML OU SCH ×3 (09:00→20:35)
[2019-10-13] MEDS ORDERED: BUPIVACAINE HCL 0.5% 10 ML VIAL As Ordered ONE (09:27)
[2019-10-13] MEDS ORDERED: BUPIVACAINE LIPOSOME/PF 1.3% 20ML VIAL (13.3MG/ML)(EXPAREL)(C9290 PER1MG) As Ordered ONE (09:28)
[2019-10-13] MEDS ORDERED: ceFAZolin SOD 2 GM in IV 1 EA IV ONE (09:30)
[2019-10-13] MEDS ORDERED: MUPIROCIN 2% OINT 22 GM TUBE As Ordered ONE (09:36)
[2019-10-13] MEDS ORDERED: PHENYLEPHRINE INJ 10MG/ML VIAL (J2370) As Ordered ONE (09:39)
[2019-10-13 09:40] LABS: ABG HCO3 22.7 MEQ/L (22.0-26.0); ABG O2 SATURATION 92.3 % (95.0-99.0); ABG PARTIAL PRESSURE CO2 48.2 mmHg (35.0-45.0); ABG PARTIAL PRESSURE O2 70.3 mmHg (75.0-100.0); ABG STANDARD HCO3 21.1 MEQ/L (22.0-26.0); ABG TOTAL CO2 24.2 MEQ/L (23.0-31.0); ABG pH (ARTERIAL) 7.291 UNITS (7.350-7.450)
[2019-10-13 10:20] LABS: INR 1.44; PROTHROMBIN TIME 17.3 SECONDS (11.8-14.0)
--- NOTE | 2019-10-13 10:27 | CR ---
DATE OF CONSULTATION: 10/13/2019 The patient is seen at the urgent request of the hospitalist service of Dr. Kauffman, for shortness of breath and a pericardial effusion HISTORY OF PRESENT ILLNESS: The patient is a 78-year-old white female who is a very difficult vague historian. It is exaggerated by her confusion in that she does not know the college president and she thinks that the year is 2018. Her family is also unhelpful with regard to historical findings. By history, she was really brought in by the family for mental status changes. She does not feel as if she is short of breath but she does tell me that she has to sit up in order to breath. She denies swelling in her legs. There is no chest pain and no chest discomfort. She has had a cough with yellow sputum production but no fever, chills or sweats. Her weight has been stable, she states. She cannot really give me a good time line of her shortness of breath. When admitted to the emergency room, she was found to be in atrial fibrillation with rapid ventricular response. She was given labetalol and converted to sinus. PAST MEDICAL HISTORY: Her past medical illnesses include: According to the patient, diabetes, osteoarthritis, rheumatoid arthritis, hypertension. She has some type of coronary artery disease, probably congestive heart failure (CHF) for which she sees Dr. Sandoval. PAST SURGICAL HISTORY: She had a cholecystectomy in the remote past and two sections. She cannot remember anything else. TRAVEL HISTORY: She has traveled to the [facility] and probably to [place]. 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 EXPOSURES: She has one dog, a Yorkie. No birds or cats. HABITS: She quit smoking 34 years ago. She denies alcohol use or illicit drugs. MEDICATIONS AT HOME: - Tylenol 650 as needed pain - amlodipine 5 mg daily - Lasix 20 mg daily - glimepiride 1 mg daily - Remicade IV every 8 weeks - loratadine 10 mg daily - Alrex one drop OU three times a day. - quinapril 20 mg daily - tacrolimus ointment to her eyelids twice a day - tobramycin ophthalmic one drop OU three times a day. REVIEW OF SYSTEMS: Constitutional: See history of present illness (HPI). Eyes: With out amaurosis fugax, without diplopia and without prior jaundice. Nose: Without epistaxis. Mouth: Has her own teeth. Pulmonary: See HPI. Cardiac: See HPI. Denies prior myocardial infarctions. Also denies leg edema. GI: Without nausea, vomiting, diarrhea or constipation. Without melena or hematochezia, abdominal pain. : Without dysuria, hematuria, or history of renal stones. Endocrine: With diabetes. Without thyroid disease. Neurologic: Without paresthesias, paralyses or prior seizures. 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 Psychiatric: She is obviously confused at this point in time with history taking but denies depression, psychoses or anxieties. PHYSICAL EXAMINATION: VITAL SIGNS: Temperature is 98.4, pulse 63 now in sinus rhythm, blood pressure 180/77. She is 96% saturated on 3 liters nasal cannula with labored breathing, particularly lying down. EYES: Pupils equal, round and react to light. Extraocular muscles intact. Sclerae anicteric. HEAD: Normocephalic. NOSE: No deformity. MOUTH: Shows mucous membranes to be pin, and moist. Lips and commissures without lesion. No thrush. NECK: Supple. There is no jugular venous distention (JVD). No subcutaneous emphysema. Trachea is midline. She has 2+ carotid upstrokes without bruits. There is no lymphadenopathy or thyromegaly. LUNGS: Lungs show decreased breath sounds with rales and rhonchi, particularly in the left side at the base. She does have dull percussion note at the left side, more from the right side. She is rather obese, however. I hear no wheezing. CARDIAC EXAM: Distal heart sounds. I cannot feel her point of maximum impulse (PMI). S1 and S2 sound to be normal. I do not hear pericardial friction rub. ABDOMEN: Soft, nontender. Bowel sounds are present but hypoactive. There is no hepatomegaly that I can feel through her morbid obesity nor is there costovertebral angle (CVA) tenderness. EXTREMITIES: Extremities show 2+-3+ pretibial edema. No calf tenderness. No differential swelling of the upper extremities. SKIN: Warm, dry, and perfused without cyanosis or mottling including that of the nail beds and knees. NEURO: Shows II-XII intact along with gross motor and gross sensation intact. Gait is not tested. Psychiatric: Shows her to be awake, alert but rather confused and only oriented to self. INVESTIGATIONS: Her white count is 22.1 with a hemoglobin and hematocrit of 10.6 and 34.4 with a platelet count of 598. Differential earlier this morning showed her to have 77% neutrophils, 10% lymphocytes, 10% monocytes. There were no immature forms or toxic granulations. Blood gases today show a pH 7.27, pCO2 51, pO2 89 on 4 liters nasal cannula with a base excess of -4.1. Her chemistries today show essentially normal electrolytes with a BUN and creatinine of 60 and 1.57 and a glucose of 1.06. Calcium 8.2. TSH is 0.231, which is below the lower limits of normal. Troponin is 0.03. Her lactic acid is 2.1. Her chest x-ray shows an enlarged cardiac silhouette. The last chest x-ray that I have on record is in 2018 and she had a normal heart size at that point in time. Heart size is globular and extends almost to the chest wall. There looks to be increased vascular markings in the right lower lobe. Left lower lobe is obscured as is the diaphragm. Her chest CT shows a moderate pericardial effusion. It is concentric particularly vividly seen on the coronal reconstructions. She has bilateral pleural effusions. There is compression and/or infiltrative process in the left lower lobe. I do not see pathologic lymphadenopathy. There are no liver lesions and her adrenals have a normal configuration. The study is done without contrast. Her echocardiogram shows some compression of the right ventricular-free wall with an IVC which does not compression. There is more fluid posteriorly than anteriorly. She also shows mitral velocity changes during inspiration and expiration. IMPRESSION: Pericardial effusion with impending tamponade. The effusion is rather sparse anteriorly and I do not think there is enough leeway to do this percutaneously, particularly with her body habitus. I will therefore, take her to the operating room where I will undertake a tube pericardiostomy and pericardial window. I do not see lung masses on the CT scan but we will certainly send the fluid and a piece of the pericardium for pathological examination. We will also drain the pleural effusions.
[2019-10-13] MEDS ORDERED: ONDANSETRON 4MG/2ML VIAL (J2405) As Ordered ONE (10:50)
[2019-10-13] MEDS ORDERED: SUGAMMADEX SODIUM 500 MG/5 ML VIAL (BRIDION) As Ordered ONE (10:50)
[2019-10-13] MEDS ORDERED: VASOPRESSIN INJ 20 UNITS/ML VIAL As Ordered ONE (10:50)
[2019-10-13] MEDS ORDERED: fentaNYL 250 MCG/5 ML INJECTION (J3010) As Ordered ONE (10:50)
[2019-10-13] MEDS ORDERED: METOPROLOL 5 MG/5 ML VIAL As Ordered ONE ×2 (10:50→14:37)
[2019-10-13] MEDS ORDERED: LIDOCAINE 2% INJ 100 MG/5 ML SDV (FOR ANES.) As Ordered ONE (10:50)
[2019-10-13] MEDS ORDERED: ETOMIDATE INJ 20MG/10ML VIAL As Ordered ONE (10:50)
[2019-10-13] MEDS ORDERED: ROCURONIUM BROMIDE 50 MG/5 ML VIAL As Ordered ONE ×2 (10:50→10:54)
[2019-10-13] MEDS ORDERED: dexameTHASONE 4 MG/ML 1ML VIAL (J1100) As Ordered ONE (10:50)
[2019-10-13] MEDS ORDERED: METOCLOPRAMIDE INJ 10MG/2ML VIAL (J2765) As Ordered ONE (10:50)
[2019-10-13] MEDS ORDERED: ESMOLOL INJ 100MG/10ML VIAL As Ordered ONE ×2 (10:50→14:37)
[2019-10-13] MEDS ORDERED: propofoL 200 MG/20 ML VIAL As Ordered ONE (10:50)
[2019-10-13] MEDS ORDERED: ceFAZolin SOD 1 GM in D5W MINI-BAG PLUS 50 ML IV SCH (11:45)
[2019-10-13] MEDS ORDERED: ONDANSETRON 4MG/2ML VIAL (J2405) IV PRN ×2 (11:45→12:45)
[2019-10-13] MEDS ORDERED: PERCOCET 5MG/325MG TAB PO PRN ×2 (11:45)
[2019-10-13] MEDS ORDERED: NORCO, ANEXSIA 5/325MG TABLET (HYDROcodone/ACETAMINOPHEN) PO PRN (11:45)
[2019-10-13] MEDS ORDERED: BISACODYL 10 MG SUPP PR PRN (11:45)
[2019-10-13] MEDS ORDERED: ACETAMINOPHEN TAB 650MG DOSE (2X325MG) PO PRN (11:45)
[2019-10-13] MEDS ORDERED: PROPOFOL 1,000 MG/100 ML VIAL As Ordered ONE (11:57)
[2019-10-13] MEDS ORDERED: FUROSEMIDE 40 MG/4 ML VIAL (J1940) IV SCH (12:00)
[2019-10-13] MEDS ORDERED: KCL 20MEQ IN D5/NS 1000ML 1,000 ML IV SCH (12:00)
--- NOTE | 2019-10-13 12:44 | REP ---
Clinical: Pericardial effusion. Comparison: 10/12/2019. Findings: Endotracheal tube 3 cm above the calli. Nasogastric tube courses below left hemidiaphragm. Right-sided chest tube overlies the right mid lung zone. Pericardial drainage catheter noted at the mediastinal base. Evaluation of the mediastinum and cardiac silhouette are limited due to overlying left-sided opacities consistent with consolidation and moderate left effusion. No obvious pneumothorax identified. Skeletal structures are intact. Impression: 1. Lines and tubes as above. 2. Left mid to lower lobe opacities suggesting left effusion and consolidations which obscure the cardiac silhouette. Electronically Signed by Sabino Cardenas MD 10/13/2019 12:34 P
[2019-10-13] MEDS ORDERED: fentaNYL 100 MCG/2 ML INJECTION (J3010) IV PRN (12:45)
[2019-10-13] MEDS ORDERED: LR 1,000 ML IV SCH (12:45)
[2019-10-13] MEDS ORDERED: PHENYLEPHRINE HCL INJ 50 MG in D5W 495 ML IV SCH (12:45)
[2019-10-13] MEDS ORDERED: propofoL 1,000 MG in IV 1 EA IV SCH (12:45)
[2019-10-13 12:52] LABS: ABG HCO3 19.9 MEQ/L (22.0-26.0); ABG O2 SATURATION 95.6 % (95.0-99.0); ABG PARTIAL PRESSURE CO2 45.5 mmHg (35.0-45.0); ABG PARTIAL PRESSURE O2 87.8 mmHg (75.0-100.0); ABG STANDARD HCO3 18.7 MEQ/L (22.0-26.0); ABG TOTAL CO2 21.3 MEQ/L (23.0-31.0); ABG pH (ARTERIAL) 7.258 UNITS (7.350-7.450)
[2019-10-13 12:55] LABS: BASO # 0.1 10^3/uL (0.0-0.2); BASO % 0.5 % (0.0-1.0); EOS # 0.1 10^3/uL (0.0-0.5); EOS % 0.7 % (0.0-3.0); HEMATOCRIT 34.1 % (36.0-47.0); HEMOGLOBIN 10.3 g/dl (12.0-15.5); LYMPH # 1.1 10^3/uL (1.5-5.0); LYMPH % 5.5 % (24.0-44.0); MEAN CORPUSCULAR HEMOGLOBIN 27.5 pg (27.0-33.0); MEAN CORPUSCULAR HGB CONC 30.2 g/dl (32.0-36.5); MEAN CORPUSCULAR VOLUME 90.9 fl (80.0-96.0); MONO # 1.6 10^3/uL (0.0-0.8); MONO % 8.3 % (0.0-5.0); NEUTROPHILS # 16.2 10^3/uL (1.5-8.5); NEUTROPHILS % 84.4 % (36.0-66.0); PLATELET COUNT, AUTOMATED 560 10^3/uL (150-450); RED BLOOD COUNT 3.75 10^6/uL (4.00-5.40); WHITE BLOOD COUNT 19.2 10^3/uL (4.0-10.0)
[2019-10-13] MEDS ORDERED: fentaNYL 100 MCG/2 ML INJECTION (J3010) As Ordered ONE (12:55)
[2019-10-13] MEDS ORDERED: FUROSEMIDE 20 MG/2 ML VIAL (J1940) As Ordered ONE (13:10)
[2019-10-13 13:14] LABS: CALCIUM LEVEL 7.7 MG/DL (8.8-10.2); CREATININE FOR GFR 1.34 MG/DL (0.55-1.30); GLOMERULAR FILTRATION RATE 40.9 (>39); POTASSIUM SERUM 4.6 MEQ/L (3.5-5.1)
[2019-10-13] MEDS ORDERED: SODIUM BICARBONATE 8.4% INJ 50 ML SYRINGE IV ONE (13:15)
[2019-10-13 13:29] LABS: PH BODY FLUID 7.299 UNITS (NOT ESTABLISHED); SOURCE, BODY FLUID pH PERICARDIAL
[2019-10-13 13:30] LABS: PH BODY FLUID 7.773 UNITS (NOT ESTABLISHED); SOURCE, BODY FLUID pH PLEURAL
[2019-10-13 13:31] LABS: SPEC. GRAVITY BODY FLUIDS 1.033 (NOT ESTABLISHED)
[2019-10-13 13:32] LABS: APPEARANCE, BODY FLUID CLOUDY (CLEAR); PLEURAL FL COLOR RED (COLORLESS); SOURCE, BODY FLUID PLEURAL
[2019-10-13 13:41] LABS: APPEARANCE, BODY FLUID CLOUDY (CLEAR); SOURCE, BODY FLUID PERICARDIAL
[2019-10-13] MEDS: LEVALBUTEROL 1.25 MG/0.5 ML CONCENTRATE NEB NEB SCH ×2 (14:00→20:47)
--- NOTE | 2019-10-13 14:03 | RO ---
DATE OF PROCEDURE: 10/13/2019 PREPROCEDURE DIAGNOSES: Pericardial effusion, impending tamponade, metabolic acidosis. POSTPROCEDURE DIAGNOSES: Pericardial effusion, impending tamponade, metabolic acidosis. PROCEDURE: 1. Pericardial window. 2. Pericardiostomy and distal sternectomy. SURGEON: Jose Montes MD TUBE AND ROD STRAIGHTENER: ANESTHESIA: FINDINGS: Pericardium had about 400 mL of serosanguineous fluid. The myocardium showed an exudate almost bread and butter type. Specimens were sent for aerobic and anaerobic fungal tuberculosis (TB) along with cytology. The pericardial window specimen was sent for pathological examination. DESCRIPTION OF PROCEDURE: Under satisfactory general anesthesia, the patient was prepped and draped in the usual sterile fashion. A subxiphoid incision was made in the midline. 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 Both horns in the xiphoid were removed in order to place the retractor under the sternum, after ronjouring and rasping the distal sternum. The sternum was elevated. There was a considerable amount of pericardial fat, which was also sent for pathological examination. This was removed so that I could visualize the pericardium. The pericardium was then opened with the above results. The cardiac surface had a roughened exudate throughout. The pleura was then opened and after removing more pericardial fat a window pericardium was resected in order to create a wide opened pericardial window. A chest tube was placed in the pericardial well and a separate right chest tube was placed in the mid axillary line on the lateral chest. The linea alba was then closed with running #0 Vicryl suture. The subcutaneous tissue was closed with running #3-0 Vicryl suture and the skin closed with #3-0 Monopril subcuticular suture. The patient tolerated the procedure well but could not be extubated in the operating room and was sent to the recovery room intubated on the ventilator. NIGEL
[2019-10-13 14:04] LABS: ABG BASE EXCESS -2.5 (-2.0-2.0); ABG FIO2 40; ABG HCO3 21.8 MEQ/L (22.0-26.0); ABG MODE OF VENT PRVC; ABG O2 SATURATION 94.8 % (95.0-99.0); ABG PARTIAL PRESSURE CO2 35.6 mmHg (35.0-45.0); ABG PARTIAL PRESSURE O2 73.6 mmHg (75.0-100.0); ABG PEEP 5; ABG STANDARD HCO3 22.3 MEQ/L (22.0-26.0); ABG TIDAL VOLUME 450 cc; ABG TOTAL CO2 22.8 MEQ/L (23.0-31.0); ABG pH (ARTERIAL) 7.404 UNITS (7.350-7.450)
[2019-10-13] MEDS ORDERED: PHENYLEPHRINE INJ 10MG/ML VIAL (J2370) ONE (14:11)
[2019-10-13] MEDS ORDERED: SODIUM BICARBONATE 8.4% INJ 50MEQ 50 ML VIAL ONE ×2 (14:11→16:48)
[2019-10-13 14:15] LABS: AMYLASE, BODY FLUID 7 U/L (NOT ESTABLISHED); LDH, BODY FLUID 130 U/L (NOT ESTABLISHED); LDH, BODY FLUID 869 U/L (NOT ESTABLISHED); SOURCE, BODY FLUID ALBUMIN PERICARDIAL; SOURCE, BODY FLUID AMYLASE PLEURAL; SOURCE, BODY FLUID GLUCOSE PERICARDIAL; SOURCE, BODY FLUID GLUCOSE PLEURAL; SOURCE, BODY FLUID LDH PERICARDIAL; SOURCE, BODY FLUID LDH PLEURAL; SOURCE, BODY FLUID TOT PROTEIN PERICARDIAL; SOURCE, BODY FLUID TOT PROTEIN PLEURAL; TOTAL PROTEIN, BODY FLUID 2.3 G/DL (NOT ESTABLISHED); TOTAL PROTEIN, BODY FLUID 5.5 G/DL (NOT ESTABLISHED)
[2019-10-13] MEDS ORDERED: MIDAZOLAM INJ 2 MG/2 ML VIAL (J2250) As Ordered ONE (14:39)
[2019-10-13] MEDS ORDERED: MIDAZOLAM INJ 2 MG/2 ML VIAL (J2250) IV SCH (14:40)
[2019-10-13 14:58] LABS: ABG BASE EXCESS -4.7 (-2.0-2.0); ABG HCO3 24.2 MEQ/L (22.0-26.0); ABG O2 SATURATION 96.2 % (95.0-99.0); ABG PARTIAL PRESSURE O2 102.7 mmHg (75.0-100.0); ABG STANDARD HCO3 20.5 MEQ/L (22.0-26.0); ABG TOTAL CO2 26.1 MEQ/L (23.0-31.0)
[2019-10-13 15:05] LABS: ABG pH (ARTERIAL) 7.199 UNITS (7.350-7.450)
[2019-10-13 15:06] LABS: ABG PARTIAL PRESSURE CO2 63.4 mmHg (35.0-45.0)
[2019-10-13] MEDS ORDERED: DIGOXIN INJ 0.5 MG/2 ML AMP (J1160) As Ordered ONE (15:08)
[2019-10-13 15:25] LABS: ABG BASE EXCESS -1.2 (-2.0-2.0); ABG HCO3 24.5 MEQ/L (22.0-26.0); ABG O2 SATURATION 91.2 % (95.0-99.0); ABG PARTIAL PRESSURE CO2 44.9 mmHg (35.0-45.0); ABG PARTIAL PRESSURE O2 63.7 mmHg (75.0-100.0); ABG STANDARD HCO3 23.4 MEQ/L (22.0-26.0); ABG TOTAL CO2 25.9 MEQ/L (23.0-31.0); ABG pH (ARTERIAL) 7.355 UNITS (7.350-7.450)
[2019-10-13 15:35] LABS: CALCIUM LEVEL 7.9 MG/DL (8.8-10.2); CREATININE FOR GFR 1.55 MG/DL (0.55-1.30); GLOMERULAR FILTRATION RATE 34.6 (>39); MAGNESIUM LEVEL 2.8 MG/DL (1.8-2.4); POTASSIUM SERUM 4.5 MEQ/L (3.5-5.1)
--- NOTE | 2019-10-13 15:38 | REP ---
Clinical: Line placement. Comparison: 10/13/2019 at 12:16 p.m. Findings: Endotracheal tube is at the calli and warrants we positioning. Nasogastric tube courses below left hemidiaphragm in satisfactory position. Right chest tube and pericardial drainage catheter stable. Left subclavian catheter noted with tip in the subclavian vein. Left apical /opacity is likely nonspecific and may reflect layering pleural fluid. Cardiomegaly and bilateral pleuroparenchymal changes are essentially stable. Skeletal structures intact. Impression: 1. Endotracheal tube is identified just above the calli and may warrant reevaluation. 2. Newly placed left subclavian catheter as above. 3. Cardiomegaly and pleuroparenchymal changes are essentially stable. Electronically Signed by Sabino Cardenas MD 10/13/2019 03:30 P
--- NOTE | 2019-10-13 16:26 | CR ---
DATE OF CONSULTATION: 10/13/2019 I was called to see this 78-year-old female admitted with rheumatoid arthritis, diabetes mellitus, hypertension, and change in level of consciousness, who was found to be in atrial fibrillation and she had a large pericardial effusion. A short while ago, she was taken to the operating room for drainage of 400 mL of reis appearing fluid. In the recovery room, following extubation, she suffered arrest and a code was called. On my arrival, CPR was in progress. The rhythm on the monitor was bradycardia followed by asystole. External pacing was performed, and the patient was chemically resuscitated, atrial fibrillation ensued with rapid ventricular response. An arterial blood gas showed a mixed acidosis and mechanical ventilation was initiated and minute ventilation increased. Subsequently, atrial fibrillation with rapid ventricular response was achieved and a consistent pulse and pressure heard. Her temperature is 96, pulse rate 140, respirations 30/30 delivered, blood pressure 106/60. HEENT: Her pupils are chemically dilated. There is a #[address] NECK: Supple. HEART: Heart sounds are irregularly irregular. LUNGS: Breath sounds coarse and diminished in the bases. There is a substernal and left sided thoracotomy tube in place with no air leak. ABDOMEN: Soft. EXTREMITIES: Pulses are weak but palpable times four. DIAGNOSTIC STUDIES: Arterial blood gas showed a pH of 7.19, pCO2 of 63, pO2 of 103. Subsequently, after intervention the pH was 7.35, pCO2 of 44, pO2 of 64. This on pressure control, rate of 30, peak of 25 over PEEP of 5. White cell count is 19, hemoglobin 10.3, hematocrit 34.1, platelet count 560,000. The sodium is 143, potassium 4.5, chloride 108, CO2 of 29, BUN 55, creatinine 0.55, glucose 220. The patient was accompanied now to the intensive care unit (ICU) and transferred to an intensive care unit (ICU) bed. THe case was reviewed with surgery, anesthesia, hospitalist service, and now with the intensive care unit (ICU) team. The primary problem requiring critical attention is acute respiratory failure. We will initiate mechanical ventilation and recheck arterial blood gases. Atrial fibrillation with rapid ventricular response. The patient has received Lanoxin. Heart rate is improving and cardiology, who is familiar with the patient, has been consulted and are en route. Pericardial effusion. The serologic studies suggest an infectious etiology, gram-stain is pending. The patient's condition is critical, prognosis is guarded. One hour and 37 minutes was spent in provision of bedside critical care and coordination.
[2019-10-13 16:39] LABS: ABG HCO3 20.4 MEQ/L (22.0-26.0); ABG O2 SATURATION 97.5 % (95.0-99.0); ABG PARTIAL PRESSURE CO2 24.8 mmHg (35.0-45.0); ABG PARTIAL PRESSURE O2 88.6 mmHg (75.0-100.0); ABG STANDARD HCO3 23.6 MEQ/L (22.0-26.0); ABG TOTAL CO2 21.2 MEQ/L (23.0-31.0); ABG pH (ARTERIAL) 7.533 UNITS (7.350-7.450)
[2019-10-13] MEDS ORDERED: ATROPINE SULF 1MG/10ML SYRINGE (J0461) ONE (16:48)
[2019-10-13] MEDS ORDERED: EPINEPHrine 1MG/10ML SYRINGE 1.5IN ONE ×2 (16:48→20:32)
[2019-10-13] MEDS ORDERED: NOREPINEPHRINE 4 MG/4 ML AMP ONE (16:48)
[2019-10-13] MEDS ORDERED: ACETAMINOPHEN 650 MG SUPP PR PRN (17:15)
--- NOTE | 2019-10-13 17:24 | IPNPDOC ---
Date Seen The patient was seen on 10/13/19. Progress Note SUBJECTIVE: Patient seen and examined this morning. She is alert and oriented only to self. She is a poor historian and says she feels her normal self today. OBJECTIVE PHYSICAL EXAMINATION: VITAL SIGNS: Please see below. GENERAL: 78 year old female sitting up in bed awake, in acute distress using accessory and abdominal muscles to breathe. HEENT: Atraumatic, normocephalic, pupils reactive R pupil larger than L, moist mucous membranes, elevated JVD CARDIOVASCULAR: Heart sounds distant, normal S1, S2 regular rate and rhythm with no murmurs, gallops or rubs RESPIRATORY: Decreased breath sounds, rhonchi and rales bilaterally. ABDOMINAL: Bowel sounds present in all 4 quadrants abdomen soft and nontender. EXTREMITIES: No clubbing cyanosis or edema. NEUROLOGICAL: Alert and Oriented to self only. Spontaneously moves all 4 extremities. Muscle strength 5/5 in LE bilaterally, sensory intact in UE and LE bilaterally, no pronator drift, no visual deficits, no slurred speech, no facial droop. LABORATORY DATA, MICROBIOLOGY: Please see below. IMAGING STUDIES: Head CT impression: Bilateral occipital lobe chronic infarcts. Chest XRay impression: Lower lobe consolidations and effusions (left greater than right). Chest CT impression: Left lower lobe pneumonia. Small bilateral pleural effusions. Cardiomegaly with large pericardial effusion. Groundglass opacities in both lungs are nonspecific but may be secondary to small airways disease and air trapping. ASSESSMENT AND PLAN: This is a 78 year old female who presented to the hospital with altered mental status by family. Found to have pneumonia, pleural effusions, and large pericardial effusion, along with episodes of what appear new-onset Afib RVR. PROBLEMS: 1. Sepsis likely secondary to Pneumonia -WBC 22.1, Lactic Acid 2.3, episodes of Afib RVR, hypoxic and tachypnic requiri ng supplemental O2 -Chest Xray showed lower lobe consolidations and effusions, Chest CT showed L lower lob pneumonia, small bilateral pleural effusions, cardiomegaly with large pericardial effusions. -Continue broad spectrum antibiotics. Cultures pending. 2. Acute Hypoxic Respiratory Failure -secondary to pneumonia, pericardial effusion vs CHF -oxygen therapy, albuterol inhalers, see above 3. Pericardial Effusion -source unclear at this point -Chest CT showed cardiomegaly with large pericardial effusions -echocardiogram pending -Consult thoracic surgeon for possible pericardiocentesis 4. New Atrial Fibrillation with RVR. -likely 2/2 pericardial effusion vs sepsis -start metoprolol tartrate 12.5 mg PO Q8H -anticoagulation on hold for pericardiocentesis -remaining workup pending 5. Altered Mental Status -possibly secondary to sepsis. NO focal deficits, but is A&Ox1 -Head CT was negative. Monitor with infection tx and remaining w/u 6. Diabetes Metallius -insulin sliding scale -diabetic diet DVT prophylaxis: TEDS and sequentials ADDENDUM: Official read of echo is pending. She was taken urgently to the OR for a pericardial window this afternoon, reportedly in and out of A. fib during her surgery, converted spontaneously to normal sinus in PACU, and when being extubated, went back into A. fib RVR, at which point cardioversion was done once, which led to asystole. Overhead code was called. When Hospitalists arrived at bedside, CPR was in progress and patient was being reintubated. Doses of epinephrine, atropine, and bicarb were given, and ultimately achieved ROSC successfully, in sinus darwin requiring pacing. Pt ultimately improved HR with additional doses, and then into Afib RVR again, received 0.25 Digoxin and moved up to ICU. While this is all ongoing, multiple discussions were held with her family, including son PCP, pt's granddaughter and grandson, and grandson's girlfriend in the waiting area. They ultimately decided that she would want to be DNR/DNI, but at this point, they would like to assess how she does throughout the night on the ventilator, but should she go again into cardiorespiratory failure, they do NOT want CPR or any further intervention. This was again discussed at bedside in ICU later again, which family is all in agreement on. MOLST form was updated to reflect this. All questions answered, including what different code statuses would entail. At this point, Cardiothoracic Surgery, Pulm/Crit, and Cardio are also involved. Appreciate assistance. Pt has a poor prognosis, which family is aware of. On broad spectrum antibiotics with chest tube in place. VS, I&O, 24H, Fishbone Vital Signs/I&O Vital Signs Date Time Temp Pulse Resp B/P (MAP) Pulse Ox O2 Delivery O2 Flow Rate FiO2 10/13/19 16:00 97.6 142 30 109/49 (69) 98 Ventilator 100 10/13/19 08:00 3.0 I&O- Last 24 Hours up to 6 AM 10/13/19 05:59 Intake Total 400 ml Output Total 100 ml Balance 300 ml Laboratory Data 24H LABS Laboratory Tests 2 10/12/19 21:48: Immature Granulocyte % (Auto) 0.8, Neutrophils (%) (Auto) 77.2H, Lymphocytes (%) (Auto) 10.0L, Monocytes (%) (Auto) 10.8H, Eosinophils (%) (Auto) 0.6, Basophils (%) (Auto) 0.6, Neutrophils # (Auto) 18.0H, Lymphocytes # (Auto) 2.3, Monocytes # (Auto) 2.5H, Eosinophils # (Auto) 0.2, Basophils # (Auto) 0.2, Nucleated Red Blood Cells % (auto) 0.0, Anion Gap 9, Glomerular Filtration Rate 31.8L, Lactic Acid Level 2.1*H, Calcium Level 8.3L, Total Bilirubin 0.3, Direct Bilirubin 0.1, Aspartate Amino Transf (AST/SGOT) 34, Alanine Aminotransferase (ALT/SGPT) 83H, Alkaline Phosphatase 140H, Ammonia 44H, Total Creatine Kinase 73, Creatine Kinase MB 1.4, Creatine Kinase MB Relative Index 1.92, Troponin I 0.03, ZO-Hmi-K-Type Natriuretic Peptide 3512H, Total Protein 7.4, Albumin 2.4L, Albumin/Globulin Ratio 0.48L, Thyroid Stimulating Hormone (TSH) 0.231L 10/12/19 22:08: Bedside Glucose (Misc Panel) 188H 10/12/19 22:27: Blood Gas Bicarbonate Standard 19.8L, Arterial Blood pH 7.285L, Arterial Blood Partial Pressure CO2 44.8, Arterial Blood Partial Pressure O2 136.6H, Arterial Blood Total CO2 22.2L, Arterial Blood HCO3 20.8L, Arterial Blood Base Excess - 5.7L, Arterial Blood Oxygen Saturation 98.2 10/13/19 00:22: Lab Scanned Report LAB OTHER 10/13/19 00:45: Urine Color YELLOW, Urine Appearance HAZY, Urine pH 5.0, Urine Specific [place] 1.011, Urine Protein 1+H, Urine Glucose (UA) NEGATIVE, Urine Ketones NEGATIVE, Urine Blood 1+H, Urine Nitrite NEGATIVE, Urine Bilirubin NEGATIVE, Urine Urobilinogen 0.2, Urine Leukocyte Esterase NEGATIVE, Urine WBC (Auto) 2, Urine RBC (Auto) 7H, Urine Hyaline Casts (Auto) 3, Urine Bacteria (Auto) NEGATIVE, Urine Squamous Epithelial Cells 2, Urine Mucus (Auto) SMALL, Urine Sperm (Auto) 10/13/19 01:15: Blood Gas Bicarbonate Standard 21.1L, Arterial Blood pH 7.272L, Arterial Blood Partial Pressure CO2 51.1H, Arterial Blood Partial Pressure O2 89.2, Arterial Blood Total CO2 24.6, Arterial Blood HCO3 23.0, Arterial Blood Base Excess - 4.1L, Arterial Blood Oxygen Saturation 95.6 10/13/19 01:37: Bedside Glucose (Misc Panel) 213H 10/13/19 02:17: Lactic Acid Followup at 4 Hours 1.8 10/13/19 04:50: Nucleated Red Blood Cells % (auto) 0.0, Anion Gap 8, Glomerular Filtration Rate 34.1L, Calcium Level 8.2L, Free Thyroxine 1.22 10/13/19 09:22: Blood Gas Bicarbonate Standard 21.1L, Arterial Blood pH 7.291L, Arterial Blood Partial Pressure CO2 48.2H, Arterial Blood Partial Pressure O2 70.3L, Arterial Blood Total CO2 24.2, Arterial Blood HCO3 22.7, Arterial Blood Base Excess - 4.0L, Arterial Blood Oxygen Saturation 92.3L 10/13/19 09:35: Prothrombin Time 17.3H, Prothromb Time International Ratio 1.44, Procalcitonin 0.22 10/13/19 11:09: Body Fluid Specific [place] 1.033, Body Fluid pH 7.773, Body Fluid pH Source PLEURAL, Body Fluid WBC (Auto) 562H, Body Fluid RBC (Auto) 98, Body Fluid Mononuclear Cells % Auto 61.4H, Fluid Polymorphonuclear Cell % Auto 38.6H, Body Fluid Glucose Source PLEURAL, Body Fluid Glucose 122, Body Fluid Protein Source PLEURAL, Body Fluid Total Protein 2.3, Body Fluid Albumin Source PERICARDIAL, Body Fluid Albumin 1.9, Body Fluid LDH Source PLEURAL, Body Fluid Lactate Deh ydrogenase 130, Body Fluid Amylase Source PLEURAL, Body Fluid Amylase 7, Pericardial Fluid Source PERICARDIAL, Pericardial Fluid Color RED, Pericardial Fluid Appearance CLOUDY, Pleural Fluid Source PLEURAL, Pleural Fluid Color RED, Pleural Fluid Appearance CLOUDY 10/13/19 12:34: Immature Granulocyte % (Auto) 0.6, Neutrophils (%) (Auto) 84.4H, Lymphocytes (%) (Auto) 5.5L, Monocytes (%) (Auto) 8.3H, Eosinophils (%) (Auto) 0.7, Basophils (%) (Auto) 0.5, Neutrophils # (Auto) 16.2H, Lymphocytes # (Auto) 1.1L, Monocytes # (Auto) 1.6H, Eosinophils # (Auto) 0.1, Basophils # (Auto) 0.1, Nucleated Red Blood Cells % (auto) 0.0, Blood Gas Bicarbonate Standard 18.7L, Arterial Blood p H 7.258L, Arterial Blood Partial Pressure CO2 45.5H, Arterial Blood Partial Pressure O2 87.8, Arterial Blood Total CO2 21.3L, Arterial Blood HCO3 19.9L, Arterial Blood Base Excess -7.0L, Arterial Blood Oxygen Saturation 95.6, Anion Gap 9, Glomerular Filtration Rate 40.9, Calcium Level 7.7L 10/13/19 13:58: Blood Gas Bicarbonate Standard 22.3, Arterial Blood pH 7.404, Arterial Blood Partial Pressure CO2 35.6, Arterial Blood Partial Pressure O2 73.6L, Arterial Blood Total CO2 22.8L, Arterial Blood HCO3 21.8L, Arterial Blood Base Excess - 2.5L, Arterial Blood Oxygen Saturation 94.8L, Arterial Blood Gas Vent Mode PRVC, Arterial Blood Gas Tidal Volume 450, Arterial Blood Gas PEEP 5, Arterial Blood Gas FiO2 40, Oxygen Delivery Device MECHAN. VENT 10/13/19 14:50: Blood Gas Bicarbonate Standard 20.5L, Arterial Blood pH 7.199*L, Arterial Blood Partial Pressure CO2 63.4*H, Arterial Blood Partial Pressure O2 102.7H, Arterial Blood Total CO2 26.1, Arterial Blood HCO3 24.2, Arterial Blood Base Excess - 4.7L, Arterial Blood Oxygen Saturation 96.2 10/13/19 14:55: Anion Gap 11, Glomerular Filtration Rate 34.6L, Calcium Level 7.9L, Magnesium Level 2.8H 10/13/19 15:15: Blood Gas Bicarbonate Standard 23.4, Arterial Blood pH 7.355, Arterial Blood Partial Pressure CO2 44.9, Arterial Blood Partial Pressure O2 63.7L, Arterial Blood Total CO2 25.9, Arterial Blood HCO3 24.5, Arterial Blood Base Excess -1.2, Arterial Blood Oxygen Saturation 91.2L 10/13/19 16:33: Blood Gas Bicarbonate Standard 23.6, Arterial Blood pH 7.533H, Arterial Blood Partial Pressure CO2 24.8L, Arterial Blood Partial Pressure O2 88.6, Arterial Blood Total CO2 21.2L, Arterial Blood HCO3 20.4L, Arterial Blood Base Excess -1.0, Arterial Blood Oxygen Saturation 97.5 CBC/BMP Laboratory Tests 10/12/19 21:48 10/13/19 04:50 10/13/19 12:34 10/13/19 14:55 Microbiology Microbiology 10/13/19 Acid Fast Stain, Received Pending 10/13/19 Mycobacterial Culture, Received Pending 10/13/19 Fungal Smear, Received Pending 10/13/19 Fungal Culture, Received Pending 10/13/19 Gram Stain - Final, Resulted 10/13/19 Body Fluid Culture, Resulted Pending 10/13/19 Anaerobic Culture, Resulted Pending 10/13/19 Acid Fast Stain, Received Pending 10/13/19 Mycobacterial Culture, Received Pending 10/13/19 Fungal Smear, Received Pending 10/13/19 Fungal Culture, Received Pending 10/13/19 Gram Stain, Received Pending 10/13/19 Anaerobic Culture, Received Pending 10/13/19 Gram Stain - Final, Resulted 10/13/19 Body Fluid Culture, Resulted Pending 10/13/19 Blood Culture, Received Pending GME ATTESTATION GME ATTESTATION My faculty preceptor for this patient encounter was physically present during the encounter and was fully available. All aspects of the patient interview, examination, medical decision making process, and medical care plan development were reviewed and approved by the faculty preceptor. The faculty preceptor is aware and concurs with the plan as stated in the body of this note and will attest to such by his/her cosignature. ATTENDING NOTE I, Néstor Alvarez, have independently examined this patient and performed my own physical exam, as well as reviewed the documentation and edited where necessary. I have discussed in detail with the resident / student the findings and plan of treatment as documented by the resident / student and edited their note. I agree with their findings and treatment plan and have edited their documentation. I will continue to follow the patient during this hospital stay. MUKESH CHOWDARY OMS-3 Oct 13, 2019 17:24 FRANCOISE WINSTON DO Oct 13, 2019 19:05 NÉSTOR ALVAREZ MD Oct 14, 2019 11:07
[2019-10-13] MEDS ORDERED: NS 1,000 ML XX SCH (17:30)
[2019-10-13] MEDS ORDERED: FUROSEMIDE 100 MG/10 ML VIAL (J1940) IV ONE (17:45)
[2019-10-13] MEDS: MIDAZOLAM INJ 2 MG/2 ML VIAL (J2250) IV PRN ×2 (19:37→22:05)
--- NOTE | 2019-10-13 20:05 | ECGEPIP ---
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
[2019-10-13] MEDS ORDERED: AMIODARONE HCL 150 MG in IV 1 EA IV ONE (20:30)
[2019-10-13] MEDS: PANTOPRAZOLE 40MG INJ (PROTONIX) (C9113) IV SCH (20:35)
[2019-10-13] MEDS: CHLORHEXIDINE GLUCONATE 0.12 % 15ML UDC (PERIDEX ORAL RINSE) MT SCH (20:35)
[2019-10-13] MEDS ORDERED: HumaLOG INSULIN (NovoLOG) PER UNIT SC SCH (21:00)
[2019-10-13] MEDS ORDERED: DOCUSATE SODIUM 100 MG CAP PO SCH (21:00)
--- NOTE | 2019-10-13 21:22 | CR ---
DATE OF CONSULTATION: 10/13/2019 REASON FOR CONSULTATION: Atrial fibrillation. REFERRING PROVIDER: Dr. Martin. HISTORY OF PRESENT ILLNESS: A 78-year-old woman who was admitted last night around midnight, came to the hospital for altered heart mental status and was found to be in atrial fibrillation with rapid ventricular rate. Further workup by chest x-ray revealed pneumonia and pleural effusion. Chest CT also revealed pneumonia as well as pleural effusions, cardiomegaly with a large pericardial effusion. The patient had an echocardiogram that revealed moderate to large pericardial effusion and changes in the mitral inflow pattern, as well as a dilated inferior vena cava (IVC). The patient had urgent pericardial window with Dr. Hernandez, but post surgery, developed increased ventricular rate of pericardial effusion and was treated with beta-blockers, then became markedly bradycardic. It was reported she was mechanically cardioverted. She also received CPR as well as atropine and epinephrine. She then was intubated and brought back here to the intensive care unit (ICU) for further management and monitoring. She remained in atrial fibrillation with a rapid ventricular rate at about 140-150 beats per minute, cardiology consult was called. Most of the information was taken from the chart and nursing staff. While I was at bedside, heart rate was about 13-140 beats per minute and blood pressure revealed a blood pressure of 110-120 mmHg systolic with a diastolic that varied between 50 and 60 mmHg. The patient currently not responding and not sedated. She is in no acute distress. CURRENT MEDICATIONS: - ceftriaxone 1 gram intravenous (IV) every 24 hours - pantoprazole 40 mg IV twice a day - morphine sulfate 2 mg IV every 2 hours - Tylenol 650 mg per rectum for pain or fever as needed, - Versed 2 mg IV every 15 minutes as needed for hesitations - Xopenex 1.25 mg every 6 hours via nebulizer - Zofran 4 mg IV every 4 hours as needed for nausea - Dulcolax 10 mg per rectum every 4 hours as needed for constipation - TobraDex ophthalmic solution three times a day both eyes. - doxycycline 100 mg IV every 12 hours PAST MEDICAL HISTORY: According to her chart is positive for: 1. Hypertension. 2. Diabetes mellitus. 3. Hyperlipidemia. 4. Rheumatoid arthritis. 5. Obesity. 6. Fatty liver. MEDICATIONS AT HOME: - amlodipine 5 mg by mouth daily - Lasix 20 mg by mouth daily - glimepiride 1 mg by mouth daily - Remicade as directed - loratadine 10 mg by mouth daily - quinapril 20 mg tablets and 2 tablets by mouth daily - tacrolimus ointment as directed - tobramycin ointment as directed. FAMILY HISTORY: Noncontributory. SOCIAL HISTORY: The patient is a former smoker and there was no report of EtOH abuse or illicit drugs. ALLERGIES: No known drug allergies. OBJECTIVE: Noted in chart. PHYSICAL EXAMINATION: The patient is supine in bed in no acute distress, not responding to verbal commands. Blood pressure reported above, as well as pulse. EXAMINATION OF THE HEAD: Atraumatic. Pupils seem to be very sluggish and barely reactive to light. NECK: Supple, no carotid bruits appreciated. LUNGS: Revealed crackles at the bases, but no wheezing. HEART EXAMINATION: Revealed irregular heart sounds, tachycardiac. The point of maximum impulse (PMI) is slightly displaced inferiorly. There is no rub. ABDOMEN: Soft and nontender. EXTREMITIES: No pedal edema. NEUROLOGICAL EXAMINATION: Was not done. LABORATORY DATA: Most recent complete blood count (CBC) revealed a WBC of 19.2 done earlier this afternoon, with a hemoglobin of 10.3, hematocrit 34.1 and platelet 560,000. On admission last evening, WBC of 23.3. Basic metabolic panel (BMP) revealed a sodium of 143, potassium 4.5, chloride 108, CO2 24, BUN 55, creatinine 1.55, GFR 34.6, fasting glucose 212, calcium 7.9. Magnesium 2.8. Lactic acid is 1.8. On admission, serum lactic acid was 2.1. BUN and creatinine on admission, 10/12/2019, was 59 and 1.67 respectively. PT today was 17.3, with an INR of 1.44. Pericardial fluid report noted. The same for pleural fluid report. Cultures including blood, pericardial fluids, pleural fluids, are pending. Head CT on admission, 10/12/2019, revealed a bilateral occipital lobe chronic infarction. Chest x-ray on admission revealed left lobe consolidation and effusions, left greater than right. Chest CT revealed left lower lobe pneumonia, small bilateral pleural effusion, cardiomegaly with large pericardial effusion, ground-glass opacity in both lungs. Chest x-ray done this afternoon at 1511 revealed an endotracheal (ET) tube just above the calli. Otherwise unremarkable. IMPRESSION: Atrial fibrillation with uncontrolled ventricular rate in this 78-year-old woman admitted with pneumonia, altered mental status, pericardial effusion that revealed an exudate and probably sepsis. The patient is status post mechanical cardioversion as well as cardiopulmonary resuscitation. Her atrial fibrillation at this present time is uncontrolled. It was reported that she became asystolic after receiving beta blockers after her pericardial window. Her chart was reviewed and I recommend to continue with digoxin and IV amiodarone can be given as needed to keep her heart rate in the low 100s. Once her blood pressure remains stable, we can initiate a small dose of short-acting beta hank. Not mentioned above, her echocardiogram also revealed a moderately depressed global left ventricular systolic function. We should stay away from any calcium channel hank. As she recovers, if she does, and if she tolerates the beta hank, we will, add at that point, a small dose of an angiotensin-converting enzyme (GIFTY) inhibitor, or angiotensin receptor hank (ARB), or Entresto based on her symptoms. Her prognosis at this present time is poor. It was a pleasure to participate the care of Mrs. Cheryl More for her underlying cardiac condition. I will continue to monitor along with you tomorrow, I will ask Dr. Menjivar to see her and I will see her again on Friday. We will continue to load her with digoxin. NIGEL
[2019-10-13] MEDS: MORPHINE 2 MG/ML 1ML VIAL (J2270) IV PRN (22:05)
[2019-10-14] VITALS (28 sets, daily range): BP systolic 116–180; BP diastolic 0–81
[2019-10-14] MEDS: MIDAZOLAM INJ 2 MG/2 ML VIAL (J2250) IV PRN ×11 (01:28→16:15)
[2019-10-14] MEDS: MORPHINE 2 MG/ML 1ML VIAL (J2270) IV PRN ×4 (01:28→12:11)
[2019-10-14] MEDS: LEVALBUTEROL 1.25 MG/0.5 ML CONCENTRATE NEB NEB SCH ×2 (02:02→07:20)
[2019-10-14] MEDS: cefTRIAXone SOD 1 GM in D5W MINI-BAG PLUS 50 ML IV SCH (03:09)
[2019-10-14 05:08] LABS: HEMATOCRIT 32.3 % (36.0-47.0); MEAN CORPUSCULAR HEMOGLOBIN 27.5 pg (27.0-33.0); MEAN CORPUSCULAR VOLUME 88.7 fl (80.0-96.0); RED BLOOD COUNT 3.64 10^6/uL (4.00-5.40); WHITE BLOOD COUNT 20.4 10^3/uL (4.0-10.0)
[2019-10-14 05:16] LABS: PLATELET COUNT, AUTOMATED 447 10^3/uL (150-450)
[2019-10-14 06:30] LABS: ABG BASE EXCESS -0.2 (-2.0-2.0); ABG HCO3 24.3 MEQ/L (22.0-26.0); ABG O2 SATURATION 97.7 % (95.0-99.0); ABG PARTIAL PRESSURE CO2 38.9 mmHg (35.0-45.0); ABG PARTIAL PRESSURE O2 110.2 mmHg (75.0-100.0); ABG STANDARD HCO3 24.3 MEQ/L (22.0-26.0); ABG TOTAL CO2 25.5 MEQ/L (23.0-31.0); ABG pH (ARTERIAL) 7.413 UNITS (7.350-7.450)
[2019-10-14] MEDS: DOXYCYCLINE HYCLATE 100 MG in D5W MINI-BAG PLUS 100 ML IV SCH ×2 (07:34→19:54)
--- NOTE | 2019-10-14 07:42 | REP ---
Clinical: Intubation. Comparison: 10/13/2019. Findings: Endotracheal tube, nasogastric tube, left subclavian catheter, right chest tube, and and pericardial drainage catheter are stable. Left mid to lower lobe opacity suggesting consolidation / collapse and effusion as well as possible overlying pericardial effusion appear essentially unchanged. Subtle right basilar atelectasis cannot be excluded. No obvious residual right pneumothorax. Impression: Cardiomegaly and opacifications primarily involving the left mid to lower lung zone as well as trace right basilar atelectasis appear unchanged. Electronically Signed by Sabino Cardenas MD 10/14/2019 07:34 A
--- NOTE | 2019-10-14 07:52 | ECHO ---
DATE OF PROCEDURE: 10/13/2019 DATE OF : 1940 AGE: 78 REFERRING PROVIDER: Dr. Ananth Martin PATIENT LOCATION: Room 3207 REASON FOR STUDY: Abnormal EKG. 2-D MEASUREMENTS: IVS: 1.3 cm LV: 4.5 cm LVPW: 1.2 cm LA: 3.7 cm Aorta: 2.5 cm RV: 2.9 cm IVC: 2.3 cm DOPPLER MEASUREMENTS: Peak velocity across the aortic valve: 1.2 m/s Peak velocity across the LVOT: 0.99 m/s Mitral E: 1.4 Mitral A: 1.0 Ratio: 1.3 Maximum tricuspid valve velocity: 3.3 m/s 2-D COMMENTS: 1. Technically limited study due to poor acoustic window. 2. Normal left ventricular size with mildly increased left ventricular wall thickness, but with a depressed global left ventricular systolic function. There appears to be diffuse hypokinesis and the estimated left ventricular systolic ejection fraction is 35%. 3. Subjectively, the left atrium appeared to be mildly enlarged. Normal right atrium and right ventricle. 4. The atrial septum appeared to be normal without evidence of defect or shunt. 5. Normal aortic root. 6. Moderate to large pericardial effusion noted, no chamber collapse present. The IVC is dilated and there is some respiratory variation noted across the mitral inflow. Right pleural effusion also noted. 7. Mildly calcified aortic valve with normal leaflet excursion. Mildly calcified mitral annulus with normal anterior mitral valve leaflet motion. Normal tricuspid valve. The pulmonic valve and proximal pulmonary artery branches were not well visualized. 8. The inferior vena cava was dilated, central venous pressure might be elevated. DOPPLER: It detects trace to mild mitral regurgitation and mild tricuspid regurgitation. The calculated pulmonary artery systolic pressure varies between 40-50 mmHg. Abnormal relaxation pattern was noted across the mitral valve annulus consistent with features of grade 2 left ventricular diastolic dysfunction, left ventricular end diastolic pressure might be elevated. IMPRESSION: 1. Moderate global left ventricular systolic dysfunction with diffuse hypokinesis. 2. There are features of grade 2 left ventricular diastolic dysfunction. 3. Moderate to large pericardial effusion noted with some features of cardiac tamponade, but no chamber collapse. A right pleural effusion was noted. 4. Aortic valve sclerosis without stenosis or aortic regurgitation. 5. Mitral annulus calcification with trace to mild mitral regurgitation. Subjectively, the left atrium is mildly enlarged. 6. Mild tricuspid regurgitation with moderate pulmonary hypertension. 7. Above findings were discussed earlier today with Dr. Montes. NIGEL
[2019-10-14] MEDS: TOBRADEX OPHTH SUSP 2.5 ML OU SCH ×3 (08:52→20:01)
[2019-10-14] MEDS ORDERED: MOM 30ML SUSPENSION UDC PO SCH (09:00)
[2019-10-14] MEDS ORDERED: PANTOPRAZOLE 40MG TAB (PROTONIX) PO SCH (09:00)
[2019-10-14] MEDS: PANTOPRAZOLE 40MG INJ (PROTONIX) (C9113) IV SCH ×2 (09:05→20:00)
[2019-10-14] MEDS: CHLORHEXIDINE GLUCONATE 0.12 % 15ML UDC (PERIDEX ORAL RINSE) MT SCH ×2 (09:05→20:00)
[2019-10-14 09:19] LABS: CALCIUM LEVEL 7.9 MG/DL (8.8-10.2); CREATININE FOR GFR 2.02 MG/DL (0.55-1.30); GLOMERULAR FILTRATION RATE 25.5 (>39); MAGNESIUM LEVEL 2.4 MG/DL (1.8-2.4); POTASSIUM SERUM 4.7 MEQ/L (3.5-5.1)
[2019-10-14] MEDS ORDERED: SODIUM CHLORIDE 0.9% INJ 10 ML SYR IV PRN (09:30)
[2019-10-14] MEDS ORDERED: SLF 3 ML SYR IV PRN (09:30)
--- NOTE | 2019-10-14 09:59 | ECGEPIP ---
Test Date: 2019-10-13 Pat Name: MINA TA Department: Room: [place] [address] Gender: Female Housemaid: TINY : 1940 Requested By: AYANA LANGSTON Order Number: [id number] Reading MD: Carmen Shetty Measurements Intervals [place] Rate: 144 P: W[place]: 0 QRS: 49 QRSD: 134 T: 73 QT: 304 QTc: 471 Interpretive Statements ATRIAL FIBRILLATION WITH RAPID VENTRICULAR RESPONSE INTRAVENTRICULAR CONDUCTION DELAY LBBB A FIB NEW Electronically Signed on 10-14-2019 9:59:08 EST by Carmen Shetty
--- NOTE | 2019-10-14 10:04 | RO ---
DATE OF PROCEDURE: 10/13/2019 PREOPERATIVE DIAGNOSES: Atrial fibrillation, bradycardia. POSTOPERATIVE DIAGNOSES: Atrial fibrillation, bradycardia. PROCEDURE PERFORMED: Left subclavian venous Cordis placement. SURGEON: David Orta DO OFFICE COORDINATOR: ANESTHESIA: PROCEDURE NOTE: The patient was seen in the recovery room, critically ill, receiving external pacemaking. The skin overlying the left subclavian vein was prepped with Betadine, draped in a sterile fashion. A 25-gauge needle was used to identify the left subclavian vein. Subsequently a 21-gauge introducer needle was placed in through the skin and into the left subclavian vein. Free return of venous blood was obtained. A vascular tip Guidewire was advanced. A small incision was made adjacent to the Guidewire and a 7.5 Italian Cordis placed in over the Guidewire and into the left subclavian vein. Post procedural chest x-ray confirmed adequate placement and showed no pneumothorax. The patient is now in the intensive care unit and remains in critical condition.
[2019-10-14] MEDS ORDERED: PROPOFOL 1,000 MG/100 ML VIAL As Ordered ONE (11:29)
[2019-10-14] MEDS: propofoL 1,000 MG in IV 1 EA IV SCH ×2 (11:35→20:14)
[2019-10-14] MEDS: IPRATROPIUM 0.5MG/ALBUTEROL 2.5MG INH SOL UD 3ML (DUONEB)(J7620) NEB SCH ×4 (12:00→22:51)
[2019-10-14 12:06] LABS: ALBUMIN 1.7 GM/DL (3.2-5.2); BILIRUBIN,DIRECT 0.2 MG/DL (0.0-0.2); BILIRUBIN,TOTAL 0.3 MG/DL (0.2-1.0); CALCIUM LEVEL 7.9 MG/DL (8.8-10.2); CREATININE FOR GFR 2.14 MG/DL (0.55-1.30); GLOMERULAR FILTRATION RATE 23.9 (>39); MAGNESIUM LEVEL 2.2 MG/DL (1.8-2.4); POTASSIUM SERUM 4.7 MEQ/L (3.5-5.1); TOTAL PROTEIN 5.8 GM/DL (6.4-8.2)
--- NOTE | 2019-10-14 12:27 | ECGEPIP ---
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
--- NOTE | 2019-10-14 12:43 | CCN ---
DATE: 10/14/2019 NOTE: Ms. More remains critically ill status post cardiac arrest in the postanesthesia care unit (PACU) following drainage of her pericardial effusion. Per my discussions with those involved yesterday, CPR was 25-30 minutes and there were multiple rhythms seen. Please see their notes for details. Initially, yesterday evening, she remained tachycardiac in atrial fibrillation, but now is in sinus rhythm. Her blood pressure is acceptable and required no intervention. Through the course of the evening, she became more awake and this morning she is alert and awake. It is not clear that she is following commands. She has minimal secretions. On bedside weaning trial, she was initially placed on pressure support of 19/5 and 15/5 and very quickly developed a rapid shallow breathing pattern. She also appeared to be using abdominal muscles on exhalation. She is not ready for extubation. OBJECTIVE/PHYSICAL EXAMINATION: General: Ms. More is lying in bed. She will appear anxious at times. Vital Signs: Temperature 100.5 which is her T-max, pulse 81, respiratory rate 18, blood pressure 151/40 with a MAP of 65 on the A-line and 137/63 with a MAP of 91 by cuff. SPO2 92% on FIO2 0.4. HEENT: Anicteric, pupils 3-4 mm and sluggish. Nares: Patent bilaterally. Oropharynx moist mucosa. ET tube and OG tube in place. Lungs: Symmetric excursion. Generalized diminished breath sounds with markedly decreased breath sounds at the left base. No rhonchi or crackles. Prolonged expiratory phase. No retractions. Occasionally she appears to use abdominal musculature on exhalation. Cardiovascular: Distant, regular rate and rhythm, with a normal S1, S2. No murmur, rub or gallop appreciated. Extremities: Positive pretibial, pedal edema. Without clubbing or cyanosis. Neurologic: Alert and awake, though cannot tell if she is oriented. Psychiatric: Appears anxious at times. LABORATORY DATA: CBC from this morning showed a hemoglobin of 10.0, hematocrit 32.3, platelet count 447,007, white blood cell count 20,400. Chemistries from this morning show sodium 144, potassium 4.7, chloride 109, bicarbonate 24, anion gap 11, BUN 66, creatinine 2.0 (up from 1.55), glucose 215, calcium 7.9, albumin 2.4. Her lactic acid from last evening after her arrest was 1.8. Arterial blood gas from this morning on [facility] with a tidal volume of 330, rate of 12, PEEP of 5 and FIO2 of 0.5 was 7.41/39/110 with a measured saturation of 98% and a base excess of -0.2. Pericardial fluid gram stain showed moderate RBCs, a few WBCs and no organisms. Pericardial fluid showed pH of 7.3, 3481 WBCs, 206 RBCs and a differential with 32% monocytes and 67% lymphocytes, glucose 96, total protein 5.5, albumin 1.9, LDH 869. The fluid was described by the laboratory as red and cloudy. Pleural fluid from the same time showed a pH of 7.77 with a WBC count of 562 and RBC count of 98 with 61% monocytes and 39% polymorphonuclear cells, glucose 122, total protein 2.3, LDH 130, amylase 7. Fluid was again described as red and cloudy. I reviewed her chest x-ray as well as report from earlier today. That x-ray showed likely enlarged cardiac silhouette and pulmonary vascular shadows. There is loss of left hemidiaphragm with air bronchograms retrocardiac. There is minimal right atelectasis. The ET tube is in good position. Yesterday's intake and output was 2190 in and 3275 out, making her negative 1085. Thus far today, 140 in and 364 out, making her negative 224. Of the output, 295 was urine and 69 out of the chest tube. Weight is 78.3 kg. IMPRESSION: 1. Acute respiratory failure status post cardiac arrest. Etiology unknown, but thought possibly secondary to acidemia versus azithromycin. 2. History of atrial fibrillation with rapid ventricular rate (RVR), now in sinus rhythm with a normal rate. Cardiology following. 3. Pericardial effusion, status post pericardial window. Await culture results. 4. Left lower lobe infiltrate. 5. Altered mental state on admission. Working diagnosis and review of the chart appears to be sepsis. 6. Rheumatoid arthritis. 7. Hypertension. 8. Diabetes mellitus. 9. CAD. 10. History of tobacco usage in the past. RECOMMENDATIONS: 1. As noted above, Ms. More did not pass a weaning trial. 2. Will continue full support. 3. We will start propofol for sedation as she has a good blood pressure as well as she is now clearly awake and alert. 4. I spoke with nursing and encouraged some use of morphine as I suspect that she likely has cracked ribs from the cardiopulmonary resuscitation (CPR) and has some discomfort. She does not appear paradoxical at this time. 5. Infectious disease (ID). On Rocephin and doxycycline. 6. Deep vein thrombosis (DVT) prophylaxis. SCD and TEDS. 7. Nutrition. Currently nothing by mouth (n.p.o.). 8. Would continue antibiotics pending culture results. Procalcitonin was 0.22 yesterday making bacterial infection unlikely, but until culture results I would continue as she is. 9. I have asked for a left-sided suction catheter. 10. Will send sputum for Gram stain and culture. 11. I spoke with the resident regarding consideration of connective tissue processes as the cause of her pericardial effusion. She is followed by a machine burrer and has RA, but I am not certain if she has been recently assessed for the processes such as lupus. 12. Will speak to the team as to why she is not on medical DVT prophylaxis at this point. 13. She does not have a label of an obstructive process in the chart. However, given her breathing pattern today, I will make increase her bronchodilators to every 4, but I would not label her with having a process at this time. Some of her abnormality may be secondary to changes in the chest wall with her CPR. CRITICAL CARE TIME: 45 minutes not including procedure time. NIGEL
[2019-10-14] MEDS: HEPARIN SOD (PORCINE) 5000 UNITS/ML VIAL (J1644 PER 1000UNITS) SQ SCH (14:12)
[2019-10-14] MEDS: SODIUM CHLORIDE 0.9% INJ 10 ML SYR IV SCH ×2 (14:13→22:50)
[2019-10-14] MEDS: SLF 3 ML SYR IV SCH ×2 (14:13→22:50)
--- NOTE | 2019-10-14 17:17 | IPN ---
DATE: 10/14/2018 This is now the first postoperative day for Ms. More. Considering the events of yesterday I am very pleased that she is moving all four extremities and looks to be awake. Yesterday after surgery she became quite tachycardic at which time I cardioverted her. Shortly thereafter she became bradycardiac leading to complete asystole for which she was resuscitated. She was quite acidotic going into the surgery secondary to hyperprofusion secondary to her tamponade and continued that immediately after surgery with a pH of 7.19 and a base excess of -4.7. Overnight she stabilized. She is now back in sinus rhythm. She is still not ready for extubation but as noted above she looks to be cerebrally intact. Her vital signs over the last 14 hours shows a heart rate that ranges between 81 and 131 now in sinus rhythm at around 80 with a maximum temperature of 100.5 and a respiratory rate of 18-32 on the ventilator in a PRVC mode on 40% FiO2 with a peep of 5. Delivered a total volume of 330 mL. With that she is 92% saturated. Her blood pressure is ranging between 155/44 to 141/81. Her intake and output the past 24 hours has been recorded at 2190 in and 3275 out for a negativity of 1085 mL. She has put out 75 mL from the mediastinal tube and 315 mL from the pleural tube. There is no air leak. Weight today is 78.3 kg compared to 78 kg yesterday. Her urine output has been 2865 mL. PHYSICAL EXAMINATION: She has bronchophony in the left lower hemithorax. Right lung shows normal vesicular sounds on the ventilator. I can not determine her percussion note secondary to her morbid obesity and that she is still on the ventilator. Cardiac exam shows a pericardial friction rub secondary to the pericardial tube. I hear no murmurs or gallops. I can not feel her PMI. Her heart sounds are still rather muffled probably secondary to her morbid obesity. Abdomen is soft and nontender. Bowel sounds are positive. Extremities show trace pretibial edema and no calf tenderness. No differential swelling of the upper extremities. Skin is warm, dry and perfused without cyanosis or mottling including nail beds and knees. Neck is supple. There is no jugular venous distension. No subcutaneous emphysema. Trachea is midline. Mouth shows her to be intubated and eyes show her pupils to be equal and reactive. Extraocular muscles are intact. Sclera non-icteric. She is now sedated. Neurologically she moves all four extremities. Her blood gases this morning showed pH of 7.413, PCo2 38, and a PO2 of 110 with a base excess of -0.2. Hematology today shows a white count of 20.4, with a hemoglobin and hematocrit of 10.0 and 32.3, essentially unchanged from yesterday with a platelet count of 447 and stable. Chemistries showed normal electrolytes with a BUN and creatinine of 70 and 2.14 up from her preoperative status of 56 and 1.34. Glucose is 215 with a calcium of 7.9, albumin is 1.7. Her chest x-ray shows an enlarged heart with an obscured diaphragm with what looks to be air bronchograms in the left lower lobe. Right lung is fully expanded and the chest tube is in good place. She has a small pleural fusion in the left prior to going to the OR which I did not address, this may be compression atelectasis from her enlarged heart and a combination of the fluid. IMPRESSION: 1. Pericardial effusion with tamponade relieved with a tube pericardiostomy and pericardial window. 2. Morbid obesity. 3. Status-post asystole with tamponade. 4. Diabetes. 5. Rheumatoid arthritis. 6. Hypertension. 7. Congestive heart failure. 8. Pulmonary hypertension. 9. 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 PLAN AND DISCUSSION: I appreciate Dr. Muñoz's getting involved with the pulmonary care of this patient. She is not ready for extubation yet. As noted above I am very gratified with how she is done so far. Her chest tube is putting out a little bit too much for me to take it out and I will defer it probably until tomorrow.
--- NOTE | 2019-10-14 18:20 | IPNPDOC ---
Text Note Date of Service The patient was seen on 10/14/19. NOTE S: Pt examined at bedside in ICU. She has shown much improvement from yesterday. Had an uneventful night besides agitation on the vent. Remains hemodynamically stable otherwise. Converted to normal sinus around 3 AM. Heart rate controlled in the 70s. She is alert and able to follow commands properly today and recognizes her relatives. Is otherwise remaining afebrile, however without much improvement in her leukocytosis. Severe acidemia has also resolved. PE: Vitals: see below General: NAD, alert and nods head appropriately to simple questions and follows commands, resting comfortably while intubated HEENT: NCAT, EOMI, PEERL, anicteric sclera, dry mucous membranes, neck supple with JVD. ET & OT tubes in place CV: RRR, pericardial drain in place with bloody output. No murmurs or clicks or rub. Trace LE edema RESP: Equal chest rise bilaterally. Diffuse rhonchi with distant lung sounds. No wheezing or rales. Breathing on the vent. Chest tube in place with bloody drainage ABD: soft, NT, ND. Hypoactive sounds : Peck in place with clear yellow urine EXTREMITIES: 2+ radial pulses b/l MSK: able to raise all limbs against resistance. NEURO: nods head yes when asked about equal sensation bilaterally, follows commands, negative babinski, no facial droop, midline tongue A/P: This is 78-year-old female brought in by family for altered mental status after she sustained a mechanical fall. She was found to be septic on admission. During her initial workup, she was found to have questionable left lower lobe infiltrate, bilateral pleural effusions, large cardiomegaly, and what appears new onset A. fib. She was taken urgently to the OR for pericardial window, and postoperatively went into RVR in PACU, uncontrolled with B-hank attempt, and went to asystole after unsuccessful cardioversion and extubation was attempted. [see addendum to 10/13 Hospitalist note for code details.] Since then, she has been reintubated and severe metabolic acidosis has resolved. She is also converted back to normal sinus rhythm with adjustment of her cardiac meds. 1. Acute hypoxemic respiratory failure S/P cardiac arrest with resuscitation - Likely multifactorial: septic fom possible left lower lobe pneumonia, large pericardial effusion, and acutely decompensated CHF - She continues to be on the ventilator this morning, however appears to be improving and possible plans by [facility] for weaning as tolerated. Appreciate input - Family verbalized wanting trial of non-invasive pressure support if able to be successfully weaned off the vent, but NOT to be re-intubated or to have CPR done again. They want no invasive measures 2. New onset A. fib RVR - Likely 2/2 acutely ill state, possibly induced by pericardial effusion vs new onset CHF - Converted overnight to NSR, s/p x1 doses of Amiodorone & Dig - Appreciate Cardiology input: rate controlled currently without any current rate-controlling meds. Per recs, give Amio and Dig doses as needed to m,aintain HR in loow 100s - Echo on admission includes: EF 35%, grade 2 diastolic dysfunction, diffuse hypokinesismod-large pericardial effusion with some tamponade but no collapse, d ilated IVC 3. Decompensated systolic and diastolic CHF - See echo above - Significantly elevated BNP, increased vascular markings and noted to be fluid overloaded on admission - If her blood pressure allows, will consider diuresing once more stable 4. Pericardial effusion with impending tamponade - s/p pericardial window 10/13 - Exact source at this point is unclear, with pericardial fluid noted to be exudative and high suspicion for infectious versus inflammatory etiology - Fluid cultures pending. Continue antibiotics until more results are in - Pericardial drain and chest use in place, appreciate cardiothoracic input 5. Sepsis 2/2 LLL pneumonia - on antibiotics and ventilation as delineated above - sepsis resolved with aggressive life-saving measures-see above - although Procalcitonin 0.22, she is a high risk pt and currently intubated. 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 Plan to then reach out to her Rheum provider, as rheum cause of her pericardial effusion is possible HTN: controlled. Meds on hold while intubated DM: fs q6 while NPO and intubated. Hypoglycemic protocol in place CAD: no acute cardiac complaints or ST changes on tele DVT ppx: heparin sc GI ppx: iv protonix DISPO: pending clinical improvement CODE status was again discussed with family, including son who is her HCP, and all of family is in agreement to actively treat her currently and monitor for improvement. Should she arrest again, NO CPR, NO to reintubation, and NO other invasive measures. VS,Fishbone, I+O VS, Fishbone, I+O Laboratory Tests 10/14/19 04:55 10/14/19 11:22 Vital Signs Date Time Temp Pulse Resp B/P (MAP) Pulse Ox O2 Delivery O2 Flow Rate FiO2 10/14/19 16:00 99.2 79 20 149/44 93 Ventilator 45 143/65 10/13/19 08:00 3.0 I&O- Last 24 Hours up to 6 AM 10/14/19 06:00 Intake Total 1555 ml Output Total 3344 ml Balance -1789 ml GME ATTESTATION GME ATTESTATION My faculty preceptor for this patient encounter was physically present during the encounter and was fully available. All aspects of the patient interview, examination, medical decision making process, and medical care plan development were reviewed and approved by the faculty preceptor. The faculty preceptor is aware and concurs with the plan as stated in the body of this note and will attest to such by his/her cosignature. ATTENDING NOTE I, Néstor Alvarez, have independently examined this patient and performed my own physical exam, as well as reviewed the documentation and edited where necessary. I have discussed in detail with the resident / student the findings and plan of treatment as documented by the resident / student and edited their note. I agree with their findings and treatment plan and have edited their documentation. I will continue to follow the patient during this hospital stay. FRANCOISE WINSTON DO Oct 14, 2019 18:20 NÉSTOR ALVAREZ MD Oct 15, 2019 12:11
[2019-10-15] VITALS (18 sets, daily range): BP systolic 119–209; BP diastolic 42–85
[2019-10-15] MEDS: HEPARIN SOD (PORCINE) 5000 UNITS/ML VIAL (J1644 PER 1000UNITS) SQ SCH ×4 (00:05→21:50)
[2019-10-15] MEDS: MORPHINE 2 MG/ML 1ML VIAL (J2270) IV PRN (01:04)
[2019-10-15] MEDS: cefTRIAXone SOD 1 GM in D5W MINI-BAG PLUS 50 ML IV SCH (02:54)
[2019-10-15] MEDS: propofoL 1,000 MG in IV 1 EA IV SCH ×2 (02:55→08:04)
[2019-10-15] MEDS: IPRATROPIUM 0.5MG/ALBUTEROL 2.5MG INH SOL UD 3ML (DUONEB)(J7620) NEB SCH ×2 (03:00→07:16)
[2019-10-15 05:23] LABS: HEMATOCRIT 31.6 % (36.0-47.0); HEMOGLOBIN 9.8 g/dl (12.0-15.5); MEAN CORPUSCULAR HEMOGLOBIN 27.5 pg (27.0-33.0); MEAN CORPUSCULAR VOLUME 88.8 fl (80.0-96.0); PLATELET COUNT, AUTOMATED 408 10^3/uL (150-450); RED BLOOD COUNT 3.56 10^6/uL (4.00-5.40); WHITE BLOOD COUNT 19.5 10^3/uL (4.0-10.0)
[2019-10-15] MEDS: SODIUM CHLORIDE 0.9% INJ 10 ML SYR IV SCH ×3 (05:47→22:00)
[2019-10-15] MEDS: SLF 3 ML SYR IV SCH ×3 (05:47→22:00)
[2019-10-15 05:49] LABS: ALBUMIN 1.7 GM/DL (3.2-5.2); ALT/SGPT 47 U/L (12-78); BILIRUBIN,TOTAL 0.3 MG/DL (0.2-1.0); BLOOD UREA NITROGEN 63 MG/DL (7-18); CALCIUM LEVEL 7.7 MG/DL (8.8-10.2); CARBON DIOXIDE LEVEL 27 MEQ/L (21-32); CHLORIDE LEVEL 113 MEQ/L (98-107); CHOLESTEROL LEVEL 75 MG/DL (< 200); CPK CREATINE PHOSPHOKINASE 201 U/L (26-192); GLOMERULAR FILTRATION RATE 31.1 (>39); GLUCOSE, FASTING 176 MG/DL (70-100); LDH LACTATE DEHYDROGENASE 176 U/L (84-246); PHOSPHORUS LEVEL 3.8 MG/DL (2.5-4.9); POTASSIUM SERUM 4.3 MEQ/L (3.5-5.1); SODIUM LEVEL 147 MEQ/L (136-145); TOTAL PROTEIN 5.7 GM/DL (6.4-8.2); TRIGLYCERIDES LEVEL 140 MG/DL (<150)
[2019-10-15] MEDS: PANTOPRAZOLE 40MG INJ (PROTONIX) (C9113) IV SCH ×2 (08:01→21:50)
[2019-10-15] MEDS: DOXYCYCLINE HYCLATE 100 MG in D5W MINI-BAG PLUS 100 ML IV SCH ×2 (08:02→20:22)
[2019-10-15] MEDS: CHLORHEXIDINE GLUCONATE 0.12 % 15ML UDC (PERIDEX ORAL RINSE) MT SCH (08:02)
[2019-10-15] MEDS: TOBRADEX OPHTH SUSP 2.5 ML OU SCH ×3 (08:05→21:50)
[2019-10-15] MEDS: NYSTATIN 100,000 UNITS/GM TOPICAL PWD 15 GM TOP PRN ×2 (08:05→16:03)
--- NOTE | 2019-10-15 08:05 | REP ---
Clinical: Intubation. Comparison: 10/14/2019. Findings: Endotracheal tube 3 cm above the calli. Nasogastric tube courses below left hemidiaphragm. Right chest tube and pericardial drainage catheter in stable position. Left lower lobe opacity unchanged from prior examination. No new acute process identified. Impression: No change from prior examination. Left lower lobe opacity again noted. Electronically Signed by Sabino Cardenas MD 10/15/2019 07:57 A
[2019-10-15 08:29] LABS: RHEUMATOID FACTOR QUANT < 10.0 IU/ML (<15.0)
[2019-10-15] MEDS ORDERED: AMIODARONE HCL 150 MG in IV 1 EA IV STA (09:52)
[2019-10-15] MEDS ORDERED: AMIODARONE 150MG/3ML INJ (J0282) IVP ONE (10:30)
[2019-10-15 10:43] LABS: ABG BASE EXCESS 1.4 (-2.0-2.0); ABG HCO3 26.2 MEQ/L (22.0-26.0); ABG O2 SATURATION 92.1 % (95.0-99.0); ABG PARTIAL PRESSURE CO2 42.4 mmHg (35.0-45.0); ABG STANDARD HCO3 25.6 MEQ/L (22.0-26.0); ABG TOTAL CO2 27.5 MEQ/L (23.0-31.0); ABG pH (ARTERIAL) 7.409 UNITS (7.350-7.450)
[2019-10-15] MEDS ORDERED: DIGOXIN INJ 0.5 MG/2 ML AMP (J1160) IV ONE (11:00)
[2019-10-15] MEDS ORDERED: AMIODARONE HCL 150 MG in IV 1 EA IV ONE ×2 (11:00→20:30)
--- NOTE | 2019-10-15 13:43 | IPNPDOC ---
Text Note Date of Service The patient was seen on 10/15/19. NOTE S: Pt examined at bedside in ICU. Remains intubated this am, did not tolerate weaning yesterday. No events overnight besides brief episode of going into Afib RVR for about 2 mintues and spontaneously converting back to NSR, in which she remains this am as well. Continues to follow commands appropriately and hemodynamically stable. PE: Vitals: see below General: NAD, resting comfortably in bed, intubated HEENT: NCAT, EOMI, PEERL, anicteric sclera, moist mucous membranes, neck supple with JVD. ET & OT tubes in place CV: RRR, pericardial drain in place with bloody output. No murmurs or clicks or rub. Trace LE edema RESP: Equal chest rise bilaterally. CTAB without w/r/r. Breathing on the vent. Chest tube in place with bloody drainage ABD: soft, NT, ND. Hypoactive sounds : Peck in place with clear yellow urine EXTREMITIES: 2+ radial pulses b/l MSK: able to raise all limbs against resistance. NEURO: able to appropriately follow commands, open on these to her name. Unclear reaction is fully alert and oriented at this point A/P: This is 78-year-old female brought in by family for altered mental status after she sustained a mechanical fall. She was found to be septic on admission. During her initial workup, she was found to have questionable left lower lobe infiltrate, bilateral pleural effusions, large cardiomegaly, and what appears new onset A. fib. She was taken urgently to the OR for pericardial window, and postoperatively went into RVR in PACU, uncontrolled with B-hank attempt, and went to asystole after unsuccessful cardioversion and extubation was attempted. [see addendum to 10/13 Hospitalist note for code details.] Since then, she has been reintubated and severe metabolic acidosis has resolved. She is also converted back to normal sinus rhythm with adjustment of her cardiac meds. 1. Acute hypoxemic respiratory failure S/P cardiac arrest with resuscitation - Likely multifactorial: possible sepsis from possible left lower lobe pneumonia, possibly 2/2 large pericardial effusion and acutely decompensated CHF, possibly 2/2 metabolic acidosis - She continues to be on the ventilator this morning, however appears to be improving and possible plans by [facility] for weaning off today. Appreciate input - Family verbalized wanting trial of non-invasive pressure support if able to be successfully weaned off the vent, but NOT to be re-intubated or to have CPR done again. They want no invasive measures 2. New onset A. fib RVR - Likely 2/2 acutely ill state, possibly induced by pericardial effusion vs new onset CHF - Maintaining NSR. Tolerated dig & Amio well - Appreciate Cardiology input: start on low dose Lopressor bid & monitor. Give Amio and Dig doses as needed to maintain HR in low 100s - Echo on admission includes: EF 35%, grade 2 diastolic dysfunction, diffuse hypokinesis, mod-large pericardial effusion with some tamponade but no collapse, dilated IVC 3. Decompensated systolic and diastolic CHF - Clinical still reveals evidence of fluid overload - See echo above - Significantly elevated BNP, increased vascular markings and noted to be fluid overloaded on admission - If her blood pressure allows, will consider diuresing once more stable; will discuss with engineering librarian 4. Pericardial effusion with impending tamponade - s/p pericardial window 10/13 - Exact source at this point is unclear, with pericardial fluid noted to be exudative and high suspicion for infectious versus inflammatory etiology - Fluid cultures pending. Continue antibiotics until more results are in - Pathology / cytology from fluid analysis remains pending - Pericardial drain and chest use in place, appreciate cardiothoracic input- possibly will remove today 5. Sepsis 2/2 LLL pneumonia - on Ceftriaxone & Doxy and ventilation as delineated above - sepsis resolved with aggressive life-saving measures-see above - although Procalcitonin 0.22, she is a high risk pt and currently intubated. Will continue antibiotics as we await cultures per Pulm recommendations RA: pt follows with [place] attorney, but will need to obtain details from family- not available when pt was examined. Plan to then reach out to her Rheum provider, as rheum cause of her pericardial effusion is possible HTN: controlled. Meds on hold while intubated DM: fs q6 while NPO and intubated. Hypoglycemic protocol in place CAD: no acute cardiac complaints or ST changes on tele DVT ppx: heparin sc GI ppx: iv protonix DISPO: pending clinical improvement, possible extubation today. PT and possible rehab after. VS,Fishbone, I+O VS, Fishbone, I+O Laboratory Tests 10/15/19 05:11 Vital Signs Date Time Temp Pulse Resp B/P (MAP) Pulse Ox O2 Delivery O2 Flow Rate FiO2 10/15/19 12:00 100.4 90 24 143/42 (96) 90 Aerosol Mask 50 160/67 10/13/19 08:00 3.0 I&O- Last 24 Hours up to 6 AM 10/15/19 06:00 Intake Total 424.8 ml Output Total 1168 ml Balance -743.2 ml GME ATTESTATION GME ATTESTATION My faculty preceptor for this patient encounter was physically present during the encounter and was fully available. All aspects of the patient interview, examination, medical decision making process, and medical care plan development were reviewed and approved by the faculty preceptor. The faculty preceptor is aware and concurs with the plan as stated in the body of this note and will attest to such by his/her cosignature. ATTENDING NOTE I, Néstor Alvarez, have independently examined this patient and performed my own physical exam, as well as reviewed the documentation and edited where necessary. I have discussed in detail with the resident / student the findings and plan of treatment as documented by the resident / student and edited their note. I agree with their findings and treatment plan and have edited their documentation. I will continue to follow the patient during this hospital stay. FRANCOISE WINSTON DO Oct 15, 2019 13:42 NÉSTOR ALVAREZ MD Oct 15, 2019 14:03
[2019-10-15] MEDS: METOPROLOL TART 12.5 MG PER 1/2 TAB PO SCH ×2 (14:08→21:51)
--- NOTE | 2019-10-15 15:59 | IPN ---
DATE: 10/15/2019 Ms. More is still on the ventilator, but the plans are to wean her today. She is awake and alert although now sedated. Her vital signs show a maximum temperature (t-max) of 100.5 with a heart rate that ranges between 98 and 83 and a predominantly sinus rhythm. She had one run of severe ventricular tachycardia earlier on this morning. Respiratory rate is 18 to 20 on a ventilator mode of PRVC with a delivered tidal volume of 330 mL and FiO2 of 40% and a PEEP 5. Her blood pressure is ranging between 116/49 to 137/61. Her intake and output the past 24 hours has been recorded as 498 in and 1164 out for a negativity of 674 mL. She has put out 164 mL from the chest tube and there is no air leak. 164 mL is distributed between 56 mL from the pericardial tube and 108 mL from the pleural tube. Her weight today is 79.6 kg compared to 81.3 kg yesterday. PHYSICAL EXAMINATION: When we sit her up she still has bronchophony in the left lower hemithorax. She has wheezing on the right side during inspiration on the ventilator. Percussion is dull at the base on the left side. Cardiac exam shows a squeaking sound secondary to her pericardial tube. I hear no murmurs or other rubs. S1 and S2 are normal. Her heart sounds are still quite distant. Abdomen is soft and nontender. Bowel sounds are hypoactive, but present. There is no hepatomegaly that I can feel through her morbid obesity. She has trace pretibial edema. No calf tenderness. Her extremities show trace pretibial edema and no calf tenderness. No differential swelling of the upper extremities. Skin is warm, dry and perfused without cyanosis or mottling including nail beds and knees. Neck is supple. There is no jugular venous distension. Trachea is midline. There is no subcutaneous emphysema. Mouth shows her to be intubated. Eyes show her pupils to be equal and reactive. Extraocular muscles are intact. Sclera non-icteric. Neurologically she is able to move all extremities purposefully. Psychiatric shows her to be sedated at this point. Her white count is 19.5 essentially unchanged from 20.4 yesterday. Hemoglobin and hematocrit are 9.8 and 31.6 with a platelet count of 408. There is no differential on her. Chemistries today show a slightly elevated sodium of 147 with a BUN and creatinine of 63 and 1.70 which is improved over 70 and 2.14 yesterday. Glucose is 176 with a calcium of 7.7 and a corresponding albumin of 1.7. AST and ALT are normal. Rheumatoid factor is less than 10 which I ordered this morning and has come back. Her chest x-ray still shows the absence of a left hemidiaphragm secondary to probable atelectasis and/or infiltrate. Air bronchograms can be seen in the left lower lobe. Heart size seems to be diminished. It was done portably. IMPRESSION: 1. Pericardial effusion with tamponade relieved with a tube pericardiostomy and pericardial window. 2. Morbid obesity. 3. Status-post asystole with tamponade. 4. Diabetes. 5. Supposed rheumatoid arthritis. 6. Hypertension. 7. Congestive heart failure. 8. Pulmonary hypertension. 9. 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 PLAN AND DISCUSSION: I await for her to be extubated by pulmonary medicine. I will not pull her chest tubes quite yet. I will keep them to suction. It looks as though she is going to be recovering from her postoperative arrest which is quite gratifying. She remains on ceftriaxone and doxycycline. Pathology is still pending.
[2019-10-15] MEDS ORDERED: FUROSEMIDE 20 MG/2 ML VIAL (J1940) IV ONE (18:15)
[2019-10-15] MEDS ORDERED: AMIODARONE HCL 360 MG in IV 1 EA IV SCH (23:00)
[2019-10-16] VITALS (7 sets, daily range): BP systolic 100–158; BP diastolic 59–69
[2019-10-16] MEDS: cefTRIAXone SOD 1 GM in D5W MINI-BAG PLUS 50 ML IV SCH (03:31)
[2019-10-16] MEDS: AMIODARONE HCL 360 MG in IV 1 EA IV SCH ×2 (05:00→18:05)
[2019-10-16] MEDS: HEPARIN SOD (PORCINE) 5000 UNITS/ML VIAL (J1644 PER 1000UNITS) SQ SCH (06:34)
[2019-10-16] MEDS: SLF 3 ML SYR IV SCH ×3 (06:35→22:01)
[2019-10-16 07:28] LABS: BASO # 0.1 10^3/uL (0.0-0.2); BASO % 0.4 % (0.0-1.0); EOS # 0.4 10^3/uL (0.0-0.5); HEMATOCRIT 35.1 % (36.0-47.0); HEMOGLOBIN 10.7 g/dl (12.0-15.5); LYMPH % 9.9 % (24.0-44.0); MEAN CORPUSCULAR HEMOGLOBIN 27.4 pg (27.0-33.0); MEAN CORPUSCULAR HGB CONC 30.5 g/dl (32.0-36.5); MONO # 1.9 10^3/uL (0.0-0.8); MONO % 9.2 % (0.0-5.0); NEUTROPHILS % 77.9 % (36.0-66.0); PLATELET COUNT, AUTOMATED 466 10^3/uL (150-450); WHITE BLOOD COUNT 20.5 10^3/uL (4.0-10.0)
[2019-10-16] MEDS: METOPROLOL TART 12.5 MG PER 1/2 TAB PO SCH ×2 (07:41→20:40)
[2019-10-16 08:04] LABS: ALBUMIN 1.8 GM/DL (3.2-5.2); BILIRUBIN,TOTAL 0.3 MG/DL (0.2-1.0); C REACTIVE PROTEIN QUANTITATIV 15.4 MG/DL (0.00-0.30); CALCIUM LEVEL 8.3 MG/DL (8.8-10.2); CREATININE FOR GFR 1.4 MG/DL (0.55-1.30); DIGOXIN LEVEL 1.9 NG/ML (0.5-2.0); GLOMERULAR FILTRATION RATE 38.9 (>39); MAGNESIUM LEVEL 2.5 MG/DL (1.8-2.4); POTASSIUM SERUM 4.5 MEQ/L (3.5-5.1); TOTAL PROTEIN 6.3 GM/DL (6.4-8.2)
[2019-10-16 08:08] LABS: C REACTIVE PROTEIN QUANTITATIV 12.3 MG/DL (0.00-0.30)
[2019-10-16 08:24] LABS: C REACTIVE PROTEIN QUANTITATIV 11.6 MG/DL (0.00-0.30)
--- NOTE | 2019-10-16 08:26 | CCN ---
DATE: 10/15/2019 Ms. More remains critically ill status post cardiac arrest in the postanesthesia care unit (PACU) following drainage of her pericardial effusion. She was found to have difficulty with atrial fibrillation with rapid ventricular response. Overnight, she had one brief episode of rapid ventricular response (RVR) that lasted around 2 minutes but otherwise she has been in sinus rhythm with a normal rate. Her blood pressures been acceptable and required no intervention. This morning on her sedation holiday, she is alert, awake and following commands. OBJECTIVE: PHYSICAL EXAMINATION: GENERAL: Ms. More is lying in bed in no acute distress. She is synchronous with the ventilator. VITAL SIGNS: Temperature 99.2 which is her maximum temperature (T-max), respiratory rate 20, pulse 83, blood pressure 156/48 with a MAP of 93 on the arterial line and 142/65 with a cuff. sPO2 95% on an FiO2 0.45. HEENT: Anicteric, PERRL. Nares patent bilaterally. Nasogastric (NG) tube in place. Oropharynx: Endotracheal (ET) tube in place. NECK: Supple, without jugular venous distention (JVD), thyromegaly or masses, trachea is midline. LYMPH: Without cervical, supraclavicular lymphadenopathy. LUNGS: Symmetric excursion. Good air entry, no wheeze, rhonchi or crackle on tidal excursion. Diminished breath sounds at the left base. Normal I/E. No accessory muscle usage or retractions. CARDIOVASCULAR: Regular rate and rhythm. Normal S1, S2. No murmur or gallop appreciated. ABDOMEN: Positive bowel sounds, soft, nondistended, nontender, no hepatosplenomegaly or masses appreciated. EXTREMITIES: Pretibial pedal edema without clubbing or cyanosis. NEUROLOGIC: Alert, awake and following commands. LABORATORY DATA: CBC from this morning shows a hemoglobin 9.8, hematocrit 31.6, platelet count 408,000, white blood cell count 19,500. Chemistries shows sodium 147, potassium 4.3, chloride 113, bicarbonate 27, anion gap 7, BUN 63, creatinine 1.7, glucose 176, calcium 7.7, phosphorus 3.8, total bilirubin 0.3, AST 14, ALT is 47, alkaline phosphatase 88, LDH 176, CK 201, total protein 5.7, albumin 1.7. I reviewed hre chest x-ray as well as the report from earlier today. X-ray showed normal-appearing cardiac silhouette and pulmonary vascular shadows. The left diaphragm remains obscured with retrocardiac air bronchograms. ET tube in good position. Sputum Gram stain showed many WBCs and no organisms. IMPRESSION: 1. Acute respiratory failure status post cardiac arrest. 2. Status post cardiac arrest. 3. History of atrial fibrillation with rapid ventricular response, now in sinus rhythm. Cardiology following. 4. Pericardial effusion, status post pericardial window. Cultures negative. 5. Left lower lobe infiltrate. Etiology unknown. Normal procalcitonin. No significant excretions. 6. Altered mental status on admission. 7. Rheumatoid arthritis. 8. Hypertension. 9. Diabetes mellitus. 10. Coronary artery disease (CAD). 11. History of tobacco usage in the past. RECOMMENDATIONS: 1. At this time we will go on to a weaning trial. 2. As she had a cardiac arrest, if she successfully passes a weaning trial of pressure support of 5 and PEEP of 5, will go to T-piece to fully unload the chest. 3. Await sputum culture results. If negative, given procalcitonin and no history strongly suggestive of a pneumonic infiltrate, would consider discontinuing antibiotics. 4. Consider connective tissue evaluation. ADDENDUM: Ms. More has gone onto a weaning trial over the course of the morning. She started on a pressure support of 15/5 10 minutes and then 10/5 for more prolonged period of time. When she did well on that, she was decreased of pressure support of 5/5. On this pressure, she appeared comfortable and had a rapid shallow breathing index in the 60s to 70s. An arterial blood gas on this pressure with an FiO2 0.4 was 7.41/42/65 with a measured saturation of 92% and a base excess of 1.4. She then went on to a T-piece trial for 15 minutes. She did not have any alterations in her hemodynamics and she appeared very comfortable and had no change in her respiratory rate. It was felt that she was ready for extubation and she was successfully extubated. Approximate 20 minutes after extubation she was resting comfortably with an aerosol mask in place. CRITICAL CARE TIME: 1 hour not including procedure time. NIGEL
--- NOTE | 2019-10-16 08:55 | REP ---
Clinical: Status post extubation. Comparison: 10/15/2019. Findings: Endotracheal tube and nasogastric tube have been removed. Pericardial drainage catheter remains stable. Right chest tube remains stable. Cardiomegaly and opacities involving the left hemithorax are essentially unchanged. Right basilar opacity appears to be slightly increased from prior examination. No pneumothorax. Skeletal structures stable. Impression: 1. Opacities in the left lung zone remains stable. 2. Increased opacity to the right base. Electronically Signed by Sabino Cardenas MD 10/16/2019 08:46 A
[2019-10-16] MEDS: SODIUM CHLORIDE 0.9% INJ 10 ML SYR IV SCH ×3 (09:01→22:00)
[2019-10-16] MEDS: TOBRADEX OPHTH SUSP 2.5 ML OU SCH ×3 (09:15→20:39)
[2019-10-16] MEDS: DOXYCYCLINE HYCLATE 100 MG in D5W MINI-BAG PLUS 100 ML IV SCH ×2 (09:15→20:39)
[2019-10-16] MEDS: FUROSEMIDE 20 MG/2 ML VIAL (J1940) IV SCH ×2 (09:16→22:01)
[2019-10-16] MEDS: PIPERACILLIN/TAZOBACTAM SOD 3.375 GM in D5W MINI-BAG PLUS 50 ML IV SCH ×3 (09:16→22:01)
[2019-10-16] MEDS: PANTOPRAZOLE 40MG INJ (PROTONIX) (C9113) IV SCH (09:21)
--- NOTE | 2019-10-16 11:16 | REP ---
Clinical: Right upper extremity pain and swelling. Technique: Hughes scale and color Doppler evaluation of the right upper extremity using linear high frequency transducer. Findings: Ultrasound examination of the right upper extremity demonstrates occlusive thrombus of the basilic vein. The jugular, subclavian, axillary, brachial, and cephalic veins are patent and demonstrate normal flow characteristics. Impression: 1. Occlusive thrombus through the basilic vein. 2. Remainder of the upper extremity veins appear patent. Electronically Signed by Sabino Cardenas MD 10/16/2019 11:08 A
--- NOTE | 2019-10-16 12:09 | IPN ---
DATE OF SERVICE: 10/16/2019 Mrs. More has been doing relatively well. Overnight, she had multiple runs of atrial fibrillation with rapid ventricular response, and I was called numerous times. I gave her initially 150 mg of amiodarone but eventually decided to start her on full loading protocol with intravenous (IV) infusion. It led to congregational of sinus rhythm on several occasions, but then she would have brief episodes of atrial fibrillation again. In sinus rhythm, she tends to run relatively bradycardic with heart rate in 50s and occasionally even 40s; and in atrial fibrillation, her heart rate would be tachycardic around 120. She feels better though. Denies any chest pain, and she has no awareness of atrial fibrillation. It looks like the episodes of atrial fibrillation (AFib) have been hemodynamically well tolerated with no appreciable drop in blood pressure or change in respiratory status. On physical examination, she seems to be relatively comfortable, even though she has a lot of pain in her incision site where the pericardial drain is when she coughs, but she denies much dyspnea. Denies chest pain otherwise. Blood pressure 119/59 and has been in similar range overnight, heart rate as above. Saturation is in mid 90s on 3 liters of oxygen by nasal cannula. Yesterday, she has been reported to make about 1850 mL of urine. Weight this morning is recorded 78.7 kg. The drainage from the chest tube is relatively small, about 130 mL. Her jugular venous pressure (JVP) still appears somewhat elevated, even though it is somewhat challenging to community mental health worker based on her body habitus. Lungs are reasonably clear, especially in the right side. On the left, there are sound diminished on the base. I do not appreciate any crackles or wheezing. Heart examination reveals currently regular rhythm without obvious gallop or rub. Muffled heart sound corresponding to her obesity. Abdomen is soft but tender. There is a drainage tube from the epicardial space that drains very small amount of bloody-looking fluid. Extremities: Are free of peripheral edema on the lower extremities, but she has considerable swelling more on the right upper than left upper extremity. There is erythema on her right middle arm. Neurologically, she is alert and oriented and appropriate. LABORATORIES: Hemoglobin 10.7, hematocrit 35, platelet count 466,000, WBC count 20.5 thousand. Basic metabolic panel: Sodium 142, potassium 4.2, BUN 46, creatinine 1.4, glucose 164, magnesium is 2.5, normal liver function tests, CRP is 15.4, and albumin 1.8. Chest x-ray continues to reveal large cardiomegaly. The right lung seems relatively clear. There is no visible diaphragm on the left side, indicating very likely effusion or infiltrate. ASSESSMENT AND PLAN: Mrs. More is a complicated patient. She is a 78-year-old female who presented with large pericardial effusion and underwent placement of pericardial window. In recovery period, she had some form of complication that included brief cardiopulmonary resuscitation (CPR). It is not completely clear to me what was the event course, but at some point she was asystolic, but she was successfully resuscitated and then had multiple episodes of atrial fibrillation. Currently after being loaded with amiodarone, she is in sinus rhythm. Her digoxin level is relatively high at 1.9. My plan would be to switch her to oral amiodarone plus use as needed metoprolol for rate control for episodes of atrial fibrillation. I think it is very likely that she will have additional episodes, but I am modestly optimistic that the trend will be improving, especially if the pericardial drain can be removed, then the irritation of the myocardial can improve. I am not quite sure whether she has sick sinus syndrome or not. So far, I do not see any truly convincing evidence; and hopefully, we will avoid placement of any pacing device. As far as anticoagulation is concerned, I believe that in this setting the risk outweighed the benefits. She still has multiple drains, and I would not recommend full anticoagulation as yet. As far as the heart failure is concerned, she has good urine output, and her creatinine is improving. The left ventricular ejection fraction (LVEF) was found to be about 35% by echocardiogram, but it was shortly after post CPR so this may actually improve down the road. I will follow the patient with you. NIGEL
--- NOTE | 2019-10-16 12:14 | IPN ---
DATE: 10/16/2019 Mrs. More is extubated awake, and alert, and in fact, asking to go home. She is also asking to get up out of bed to a chair, which we will shortly do. Her pain is being well controlled. Her vital signs show a maximum temperature (T-max) of 100.4, with a heart rate that ranges between 46 and 130 alternating between atrial fibrillation with rapid ventricular rate (RVR) and in sinus rhythm. She is presently in sinus rhythm. Respiratory rate is 22-28 without the use of accessory muscles, who is 94% saturated on 3 liters of nasal cannula and has blood pressures ranging between 100/59 to 158/68. Her intake and output over the past 24 hours has been recorded as 1375 in and 1851 out for a negativity of 475 mL. She has put out 48 mL from the pericardial tube and 82 mL from the pleural tube. Neither have air leaks. Weight today is 78.7 kg the same as yesterday. On physical examination she still has bronchophony and E/A egophony in the left lower hemithorax. Right lung sounds has some inspiratory wheezing but not expiratory wheezing. Cardiac exam is without murmurs, clicks, and particularly rubs. I cannot feel her point of maximum impulse (PMI). S1 and S2 are normal. Her heart sounds still are quite distant secondary to her morbid obesity. Abdomen is soft and nontender. Bowel sounds are positive. There is no hepatomegaly that I can feel through the obesity. No costovertebral angle (CVA) tenderness. Extremities show no pretibial edema but there is differential swelling of the right and left upper extremities with the left upper extremity quite swollen. It is also tendon and the right forearm is reddened. My first suspicion is that she has a upper extremity deep venous thrombosis (DVT). Skin is warm, dry and perfused without cyanosis or mottling including that of the nail beds and knees. Neck is supple. There is no jugular venous distention. No subcutaneous emphysema. Trachea is midline. Mouth shows her mucous membranes to be pink and moist. Lips and commissures are without lesions. There is no thrush. Eyes show her pupils to be equal and reactive. Extraocular movements intact. Sclerae nonicteric. Neurologic shows II-XII intact along with gross motor and gross sensation intact. Gait is not tested. Psychiatric showed her to be awake, alert and oriented times three with appropriate and affect and conversational. Her chest x-ray today shows more opacification of the left lower hemithorax with air bronchograms. I suspect not only is her lung compressed by it may be mucous plugged. There is also more of an infiltrate in the right lower hemithorax in the right lower lobe more than yesterday. The x-rays are different in that she is extubated today and was intubated yesterday. Her white count is 20.5 with a hemoglobin and hematocrit of 10.7 and 35.1. This may be secondary to hemoconcentration. Platelet counts are 466 and stable and differential shows 77% neutrophils, 9% lymphocytes and 9% monocytes. There are no immature forms or toxic granulations. Her chemistries today show normal electrolytes with a BUN and creatinine of 46 and 1.4, which continues to improve. Glucose 164, with a calcium 8.3 and an albumin of 1.8. IMPRESSION: 1. Pericardial effusion with tamponade relieved with a tube pericardiostomy and pericardial window. 2. Morbid obesity. 3. Status post asystole with tamponade and metabolic acidosis. 4. Diabetes. 5. Rheumatoid arthritis. 6. Hypertension. 7. Congestive heart failure. 8. Pulmonary hypertension. 9. Right heart failure secondary to left heart failure with a left ejection fraction of 35%. 10. Upper extremity deep venous thrombosis. Ultrasound pending. PLAN/DISCUSSION: I will remove her chest tubes and pericardial tubes today. If the ultrasound shows an upper extremity deep venous thrombosis, I would not hesitate to place her on heparin. We should get her up in a chair and get her mobilized. She is certainly is motivated to. We need to do aggressive lung expansion therapy. I am concerned about the right lower lobe infiltrative appearance of the chest x-ray today. As far as her pericardial effusion is concerned, it is an exudative neutrophilic effusion. The microbiology is negative thus far and there are no organisms seen on the Gram stain. The cultures are still pending. A tubercular pericardial effusion is a remote possibility. This could also be secondary to a rheumatoid arthritis even though her rheumatoid factor is negative. As noted above, I am checking her for a lupus antibody.
--- NOTE | 2019-10-16 13:14 | IPN ---
DATE: 10/16/2019 NOTE: Ms. More did well status post extubation yesterday. She continues to have difficulty with intermittent atrial fibrillation with rapid ventricular response. Today she is out of bed sitting in a chair. She has a cough. She is not currently bringing up any sputum, but believes she could. She has not complained of significant shortness of breath or chest pain. She has a swollen right hand and arm. No other concerns expressed. OBJECTIVE: PHYSICAL EXAMINATION: GENERAL: Ms. More is sitting in a chair in no acute distress. She can complete full sentences. Occasional cough. VITAL SIGNS: Temperature 97.9, which is her maximum temperature (T-max), pulse in the 70s and regular, respiratory rate 20s, blood pressure 119/59, SpO2 94% on FiO2 of 3 liters. HEENT: Anicteric. Nares: Patent bilaterally. Oropharynx clear. No lesions. Fair dentition. NECK: Supple, trachea is midline. LUNGS: Symmetric excursion, fine crackles at the right base, absent breath sounds at the left base. No wheeze or rhonchi, normal expiratory phase. No accessory muscle usage or retractions. CARDIOVASCULAR: Regular rate and rhythm with a normal S1, S2. No murmur, rub or gallop appreciated. ABDOMEN: Positive bowel sounds. EXTREMITIES: Without clubbing or cyanosis, right hand and arm is swollen. No other edema. LABORATORY DATA: Complete blood count (CBC) shows a hemoglobin of 10.7, hematocrit 35.1, platelet count 466,000, white blood cell count 78%, 10% lymphocytes and 9% monocytes. Chemistry shows a sodium 142, potassium 4.5, chloride 109, bicarbonate 30, anion gap 3, BUN 46, creatinine 1.4, glucose 164, calcium 8.3, magnesium 2.5. Total bilirubin 0.3, AST 21, ALT 37, alkaline phosphatase 83, CRP 15.4, total protein 6.3, albumin 1.8. I reviewed her chest x-ray as well as the report from earlier today. That x-ray showed enlarged cardiac silhouette. Unable to comment on pulmonary vascular shadows. There is an opacification on the left lower lobe with some air bronchograms. There is now a new right lower lobe opacity. Right upper lobe Doppler ultrasound shows occlusive thrombus to the basilic vein. IMPRESSION: 1. Acute respiratory failure status post cardiac arrest, doing well post extubation. 2. Left lower lobe infiltrate and new right lower lobe opacity. To date, cultures have been negative and procalcitonin is normal. 3. Right extremity deep venous thrombosis (DVT). 4. Exudative pericardial effusion and the cultures negative. 5. Rheumatoid arthritis. Per chart. 6. Diabetes mellitus. 7. Hypertension. 8. Coronary artery disease (CAD). 9. Tobacco usage in the past. RECOMMENDATIONS: 1. Would recommend anticoagulation for the right upper lobe deep venous thrombosis (DVT). 2. At this point, all cultures were negative. Would consider discontinuing antibiotics. 3. Would continue aggressive pulmonary hyperinflation and airway clearance therapy with EzPAP and Acapella. She is also on as needed bronchodilator. 4. Would continue oxygen supplementation to keep saturations greater than or equal to 90%. MTDD
[2019-10-16] MEDS: APIXABAN 5 MG TAB (ELIQUIS) PO SCH ×2 (13:37→20:40)
--- NOTE | 2019-10-16 14:08 | IPNPDOC ---
Text Note Date of Service The patient was seen on 10/16/19. NOTE S: Pt examined at bedside in ICU. Was extubated yesterday and is breathing well on 3L NC this am. Reverted back to AFib yesterday evening, with multiple episodes of tachycardia and bradycardia throughout the night. She is somewhat better controlled this am in the 130s and asymptomatic, s/p Amiodarone. Is cognitively doing well and alert & oriented, able to recognize family and interact appropriately. Has no complaints besides pain around chest tube sites. Tolerating po intake and denies chest discomfort and shortness of breath. PE: Vitals: see below General: NAD, resting comfortably in bed, A&Ox3, appropriately conversant HEENT: NCAT, EOMI, PEERL, anicteric sclera, moist mucous membranes, neck supple with JVD CV: RRR, pericardial drain in place with bloody output starting to clear up. No murmurs or clicks or rub. Trace LE edema RESP: Equal chest rise bilaterally. Minimal rhonchi right base. Otherwise clear throughout. Chest tube in place with bloody drainage ABD: soft, NT, ND. Normoactive sounds : Peck in place with clear yellow urine EXTREMITIES: 2+ radial pulses b/l MSK: able to raise all limbs against resistance. 5/5 throughout, good hand clerical verifier strength NEURO: able to appropriately follow commands, sensation intact throughout, no slurred speech of facial droop or tongue deviation. A/P: This is 78-year-old female brought in by family for altered mental status after she sustained a mechanical fall. She was found to be septic on admission. During her initial workup, she was found to have questionable left lower lobe infiltrate, bilateral pleural effusions, large cardiomegaly, and what appears new onset A. fib. She was taken urgently to the OR for pericardial window, and postoperatively went into RVR in PACU, uncontrolled with B-hank attempt, and went to asystole after unsuccessful cardioversion and extubation was attempted. [see addendum to 10/13 Hospitalist note for code details.] Since then, she has b een reintubated and severe metabolic acidosis has resolved and converted back to NSR s/p Digoxin & Amiodarone. 1. Acute hypoxemic respiratory failure S/P cardiac arrest with resuscitation - Likely multifactorial: possible sepsis from possible left lower lobe pneumonia, possibly 2/2 large pericardial effusion and acutely decompensated CHF, possibly 2/2 metabolic acidosis - Extubated yesterday 10/15 and breathing well on 3L NC this am. Wean off as tolerated. - PulmCrit following, appreciate input - Family verbalized wanting trial of non-invasive pressure support if able to be successfully weaned off the vent, but NOT to be re-intubated or to have CPR done again. They want no invasive measures 2. New onset A. fib RVR - Likely 2/2 acutely ill state, possibly induced by pericardial effusion vs new onset CHF - Reverted back to AFib 10/15, uncontrolled rate this am depite starting Lopressor 12.5mg bid yesterday. Is asymptomatic - Appreciate Cardiology input: started on Amiodarone, Lopressor continued. Monitor tele. Start Anticoagulation with Eliquis-pt agreeable - Echo on admission includes: EF 35%, grade 2 diastolic dysfunction, diffuse hypokinesis, mod-large pericardial effusion with some tamponade but no collapse, dilated IVC 3. Decompensated systolic and diastolic CHF - Fluid overloaded. See echo above, significantly elevated BNP, increased vascular markings - Start gentle diuresis Lasix 20mg bid with close monitoring - strict I/O, daily wt, 2L fluid restriction 4. Pericardial effusion with impending tamponade - s/p pericardial window 10/13 - Exact source at this point is unclear, with pericardial fluid noted to be exudative and high suspicion for infectious versus inflammatory etiology - Fluid cultures, patholgy, cytology remain pending - Will D/c Ceftriaxone and continue Zosyn until fluid analysis results - Pericardial drain and chest use in place, appreciate cardiothoracic input- possibly will remove today 5. LLL pneumonia - On antibiotics and s/p ventilation - sepsis resolved with aggressive life-saving measures-see above - although Procalcitonin 0.22, she is a high risk pt s/p cariopulmonary arrest & intubation. Will continue antibiotics as we await cultures, per Pulm recommendations 6. RUE superficial thrombosis - Doppler: Occlusive thrombus through the basilic vein. - pt started on Eliquis RA: pt follows with social organization professor, but will need to obtain details from family- not available when pt was examined. Plan to then reach out to her Rheum provider , as rheum cause of her pericardial effusion is possible. Awaiting information from pt & family HTN: controlled. Home meds on hold since pt was intubated. Monitor bp since extubation DM: fs & hypoglycemic protocol in place DVT ppx: eliquis DISPO: pending clinical improvement, possible removal of drains today. PT/OT and possible rehab after. VS,Fishbone, I+O VS, Fishbone, I+O Laboratory Tests 10/16/19 07:17 Vital Signs Date Time Temp Pulse Resp B/P (MAP) Pulse Ox O2 Delivery O2 Flow Rate FiO2 10/16/19 07:41 130 119/59 10/16/19 04:00 97.9 24 94 Nasal Cannula 3.0 10/15/19 14:00 50 I&O- Last 24 Hours up to 6 AM 10/16/19 06:00 Intake Total 1710 ml Output Total 2015 ml Balance -305 ml GME ATTESTATION GME ATTESTATION My faculty preceptor for this patient encounter was physically present during the encounter and was fully available. All aspects of the patient interview, examination, medical decision making process, and medical care plan development were reviewed and approved by the faculty preceptor. The faculty preceptor is aware and concurs with the plan as stated in the body of this note and will attest to such by his/her cosignature. ATTENDING NOTE I, Néstor Alvarez, have independently examined this patient and performed my own physical exam, as well as reviewed the documentation and edited where necessary. I have discussed in detail with the resident / student the findings and plan of treatment as documented by the resident / student and edited their note. I agree with their findings and treatment plan and have edited their documentation. I will continue to follow the patient during this hospital stay. FRANCOISE WINSTON DO Oct 16, 2019 14:08 NÉSTOR ALVAREZ MD Oct 16, 2019 17:48
[2019-10-16 14:20] LABS: ANTINUCLEAR ANTIBODIES DIRECT Negative (Negative)
[2019-10-16] MEDS: MORPHINE 2 MG/ML 1ML VIAL (J2270) IV PRN (18:06)
[2019-10-16] MEDS: ACETAMINOPHEN TAB 650MG DOSE (2X325MG) PO PRN (18:31)
[2019-10-16] MEDS: AMIODARONE 200 MG TAB (PACERONE) PO SCH (20:40)
--- NOTE | 2019-10-16 21:38 | IPN ---
DATE: 10/15/2019 Mrs. Cheryl More was seen initially a couple of days ago, on 10/13/2019, after her pericardial window, which was complicated by paroxysmal atrial fibrillation, darwin arrhythmia/sinus pause. During that process, patient was mechanically cardioverted, in addition to cardiopulmonary resuscitation. When I initially saw her, she did not respond to verbal stimuli and she was in atrial fibrillation with rapid ventricular rate. She was given loading dose of digoxin and intravenous (IV) amiodarone as needed. She spontaneously cardioverted to a normal sinus rhythm. She slowly has regained her consciousness and earlier today she was extubated. This evening, when I was at bedside, she was sinus rhythm and suddenly went into atrial fibrillation with rapid ventricular rate, up to 130- 140 beats per minute, and again spontaneously cardioverted to a heart rate of about 40 beats per minute. The same thing happened in the early intervention specialist hours on 10/14/2019. She is asymptomatic with those episodes. Lowest heart rate is about 40 beats per minute. She denies any chest pain or dizziness. She appears to be short of breath at rest. She has two family members at bedside and her nurse. There is no report of bleeding. The immediate plan is to remove the pericardial drain tomorrow, 10/16/2019. Earlier today, she was started on regular dose of short-acting beta hank, metoprolol tartrate, and also she was given one dose of IV digoxin and IV amiodarone prior to that. On physical examination, patient is alert and oriented, with mild shortness of breath at rest, and her most recent vital signs this evening revealed a blood pressure of 148/65, with a pulse of 70, respirations 24-28, and her maximum temperature is 100.4 degrees Fahrenheit, with an oxygen saturation of 92-95% on nasal cannula. She had a negative fluid balance of about 674 mL on 10/14/2019 and so far today, 472 mL. EXAMINATION OF THE HEAD: Atraumatic. NECK: Supple, without extended jugular. I could not appreciate any carotid bruits. LUNGS: Decreased breath sounds at the bases. No wheezing. HEART EXAMINATION: Revealed irregular heart sounds without gallops. The point of maximum impulse (PMI) is displaced inferiorly and laterally. There is no rub. I could not appreciate any murmurs. ABDOMEN: Soft and nontender. EXTREMITIES: Do not reveal any pedal edema. NEUROLOGICAL EXAMINATION: Was limited, but patient was able to move all of her extremities. LABORATORY DATA: Complete blood count (CBC) done today revealed a WBC of 19.5, hemoglobin 9.8, hematocrit 31.6 and platelets 408,000. Basic metabolic panel (BMP) revealed a sodium of 147, potassium 4.3, chloride 113, CO2 27, BUN 63, creatinine 1.70, GFR 31.1, fasting glucose 176, and calcium 7.7. Liver enzymes revealed a total bilirubin of 0.3, AST 14, ALT 47, alkaline phosphatase 88, total protein 5.7, albumin 1.7. IMPRESSION: 1. Atrial fibrillation, paroxysmal in nature. The patient seems to have underlying sick sinus syndrome and she will need to be monitored closely. We will see how she responds to the current dose of the metoprolol tartrate. We should stay away from digoxin for now. If she continues to present with tachy/darwin manifestation, she might benefit at one point from a permanent pacemaker implantation. She is currently on subcutaneous heparin. If there is no objection with Dr. Hernandez, she can be started on anticoagulation therapy for prevention of thromboembolic events. She might benefit from Eliquis at 5 mg by mouth twice a day. 2. Pneumonia with underlying sepsis, pericardial and pleural effusion. This is being addressed. Patient had pericardial window on admission on 10/13/2019 and also has a right-sided chest tube. She is currently on IV antibiotics. She is slowly getting better. 3. Hypertension. She is being monitored. We can stay away from angiotensin-converting enzyme (GIFTY) inhibitor or angiotensin receptor hank (ARB) or Entresto at the present time. 4. History of diabetes mellitus. She is being monitored. 5. History of arthritis with rheumatoid arthritis. 6. Status post acute kidney injury. She is improving slowly. 7. Cardiomyopathy with a low EF noted on her echocardiogram on 10/13/2019. She appears to be congested when I was at bedside, with mild shortness of breath at rest and she was given a dose of IV Lasix. We will need to monitor closely her BUN, creatinine and serum potassium. IV Lasix/furosemide can be given as needed to control her fluid status. At one point, and if her kidney function continues to improve, she should be on Entresto or GIFTY inhibitor or ARB. If, on the other hand, we cannot give one of them, to consider a combination of long-acting nitrate and hydralazine if her blood pressure goes up. It was a pleasure to participate in the care of . Cheryl More for her underlying cardiac condition. I will continue to monitor her along with you while in the hospital over the weekend and on Friday, Dr. Menjivar will be seeing her. NIGEL
[2019-10-16] MEDS: RAMELTEON 8 MG TAB (ROZEREM) PO SCH (23:24)
[2019-10-17] VITALS (16 sets, daily range): BP systolic 103–194; BP diastolic 59–96
[2019-10-17] MEDS: ACETAMINOPHEN TAB 650MG DOSE (2X325MG) PO PRN ×3 (00:33→13:27)
[2019-10-17] MEDS: PIPERACILLIN/TAZOBACTAM SOD 3.375 GM in D5W MINI-BAG PLUS 50 ML IV SCH ×4 (03:56→22:00)
[2019-10-17 05:26] LABS: HEMATOCRIT 37.3 % (36.0-47.0); MEAN CORPUSCULAR HEMOGLOBIN 27.4 pg (27.0-33.0); MEAN CORPUSCULAR HGB CONC 29.5 g/dl (32.0-36.5); MEAN CORPUSCULAR VOLUME 92.8 fl (80.0-96.0); PLATELET COUNT, AUTOMATED 371 10^3/uL (150-450); RED BLOOD COUNT 4.02 10^6/uL (4.00-5.40); WHITE BLOOD COUNT 18.8 10^3/uL (4.0-10.0)
[2019-10-17 06:56] LABS: ALBUMIN 1.6 GM/DL (3.2-5.2); ALT/SGPT 42 U/L (12-78); BILIRUBIN,TOTAL 0.4 MG/DL (0.2-1.0); BLOOD UREA NITROGEN 46 MG/DL (7-18); CARBON DIOXIDE LEVEL 17 MEQ/L (21-32); CHLORIDE LEVEL 114 MEQ/L (98-107); CREATININE FOR GFR 1.85 MG/DL (0.55-1.30); GLOMERULAR FILTRATION RATE 28.2 (>39); GLUCOSE, FASTING 173 MG/DL (70-100); POTASSIUM SERUM 4.5 MEQ/L (3.5-5.1); SODIUM LEVEL 142 MEQ/L (136-145); TOTAL PROTEIN 7.1 GM/DL (6.4-8.2)
[2019-10-17] MEDS: SODIUM CHLORIDE 0.9% INJ 10 ML SYR IV SCH ×3 (07:00→22:05)
[2019-10-17] MEDS: SLF 3 ML SYR IV SCH ×3 (08:27→22:05)
[2019-10-17] MEDS: DOXYCYCLINE HYCLATE 100 MG in D5W MINI-BAG PLUS 100 ML IV SCH ×2 (08:28→21:01)
[2019-10-17] MEDS: APIXABAN 5 MG TAB (ELIQUIS) PO SCH ×2 (08:29→21:02)
[2019-10-17] MEDS: METOPROLOL TART 12.5 MG PER 1/2 TAB PO SCH ×2 (08:30→20:54)
[2019-10-17] MEDS: AMIODARONE 200 MG TAB (PACERONE) PO SCH ×2 (08:30→21:02)
[2019-10-17] MEDS: TOBRADEX OPHTH SUSP 2.5 ML OU SCH ×3 (08:31→21:02)
--- NOTE | 2019-10-17 09:23 | REP ---
Clinical: Pericardial effusion. Technique: PA and lateral. Comparison: 10/16/2019. Findings: The right chest tube and pericardial drainage catheter have been removed. Opacities involving the left lower lobe and overlying the mediastinum/cardiac silhouette are essentially unchanged. Opacity in the right mid lung zone and right lung base are similar to prior examination. No obvious pneumothorax. Impression: Relatively stable bilateral opacities. No obvious pneumothorax. Electronically Signed by Sabion Cardenas MD 10/17/2019 09:15 A
--- NOTE | 2019-10-17 11:10 | IPN ---
DATE OF SERVICE: 10/17/2019 Mrs. More is a little bit better than she was yesterday. She is sitting by her bedside. Denies any chest discomfort but does admit to some shortness of breath. Not much cough. On physical examination, there is no fever. Vital signs: Blood pressure 157/71, heart rate has been mostly in 50s, even though she alternates with episodes of atrial fibrillation during which her heart rate is around 110-120 range, saturation is 95% on 3 liters of oxygen. Fluid balance yesterday was recorded about 300 positive. There is no weight documentation this morning as yet. She made about 1300 mL of urine yesterday. She is alert and oriented and appropriate. Her jugular venous pressure (JVP) looks slightly elevated. Lungs are relatively clear on the right. On the left, the lung does not seem to breathe to me almost three-quarters up. No crackles. Heart examination reveals irregular rhythm quite bradycardic. I do not appreciate any distinct murmur or gallop. Abdomen is obese but soft, and there is trace peripheral edema. LABORATORIES: Basic metabolic panel: Sodium 142, potassium 4.5, BUN 46, creatinine 1.9, GFR 28, platelet 173,000. Normal liver function tests. CRP is down to 11.7, and albumin is 1.6. Complete blood count (CBC): WBC count 18.8, hemoglobin 11, hematocrit 37, platelet count is 371,000. ASSESSMENT AND PLAN: Mrs. More is a 78-year-old female who presented with large pericardial effusion that required pericardial window placement. It turned out that it was exudative in nature. She had some form of cardiac arrest in postoperative period. She initially went into atrial fibrillation (AFib) with rapid ventricular response (RVR) and was cardioverted but shortly thereafter had bradyarrhythmic arrest, possibly related to acidemia or CO2 retention with successful cardiopulmonary resuscitation (CPR). She was reintubated. Since then, she has had episodes of atrial fibrillation and was started on amiodarone. The frequency of AFib is decreasing; but, unfortunately, she is alternating between sinus bradycardia and AFib with RVR; so if the trend continues, she might be a candidate for pacemaker. Last night, she had post conversion pause that was approximately 4 seconds, but today there were no post conversion pauses. I suspect that it was principally due to the effect of digoxin that has been since discontinued. She was started on anticoagulation actually with apixaban, which I would probably prefer to wait a little bit longer, but ultimately she will need to be anticoagulated in a long run. As far as her additional problems are concerned, her echocardiogram revealed approximately moderate or moderately severe left ventricular systolic dysfunction. Her renal function has declined since yesterday, so the diuretics were discontinued, but this morning her blood pressure was elevated, so I will start her on hydralazine with holding parameters for blood pressure. Finally, most concerning to me is the decreased breath sounds over left side. Dr. Montes has already appreciated it earlier and ordered a CT scan of the chest. He has plan to drain her effusion should that be large left pleural effusion by CT scan. If it is only pulmonary infiltrate, she will continue with antibiotics. I do think that her condition is improving, but she is far from surviving this episode. NIGEL
--- NOTE | 2019-10-17 11:12 | IPNPDOC ---
Text Note Date of Service The patient was seen on 10/17/19. NOTE Subjective: Patient is a 78-year-old female with a PMHx of RA, CHF and HTN who presented to the emergency room with complaints of confusion after she had sustained a mechanical fall. Patient reported that was also short of breath on arrival. During her initial workup, she was found to have questionable left lower lobe infiltrate, bilateral pleural effusions, large cardiomegaly, and what appears new onset A. fib. A stat echocardiogram was completed that revealed impending cardiac tamponade and she was taken urgently to the OR for pericardial window, and postoperatively went into RVR in PACU, uncontrolled with B-hank attempt, and went to asystole after unsuccessful cardioversion and extubation was attempted. [see addendum to 10/13 Hospitalist note for code details.] Patient has since been extubated and is been tolerating nasal cannula. Patient was seen and examined at the bedside. Patient reports that her breathing is doing relatively fine. She denies any significant chest pain. She does report shortness of breath and a mild cough. She does note that when she coughs she experiences some upper abdominal discomfort. Patient denies any diarrhea. Objective: Vitals (See below) General: Lying in bed, no acute distress, comfortable, AAOx3 HEENT: NC, AT CVS: Bradycardic, +S1S2 Lungs: Decreased breath sounds at left mid/lower lung base, Abdomen: Soft, ND, NT Extremities: Trace pitting edema, - Calf tenderness Assessment and plan: Acute hypoxemic respiratory failure - likely multifactorial; possible 2/2 sepsis 2/2 possible left lower lobe pneumonia, possibly 2/2 large pericardial effusion and acutely decompensated CHF, possibly 2/2 metabolic acidosis - s/p cardiac arrest with resuscitation - Extubated on 10/15 and breathing well on 3L NC - Pulmonology on consultation; appreciate their input New onset A. fib RVR - likely 2/2 acutely ill state, possibly induced by pericardial effusion, possibly 2/2 decompensated CHF - Remains asymptomatic - Currently in sinus rhythm; bradycardic - ECHO 10/13: EF 35%, Grade 2 diastolic dysfunction, diffuse hypokinesis, mod- large pericardial effusion with some tamponade but no collapse, dilated IVC - c/w Rate / Rhythm control with Amiodarone and Metoprolol - c/w full anticoagulation with Eliquis - Cardiology on consultation; appreciate their input Acute decompensated systolic and diastolic CHF - Clinically still appears to have some level of fluid overlaod - c/w Strict I/Os, Daily Weights - Will Hold diuresis (re: Elevation of Cr) Pericardial effusion with impending tamponade - 2/2 exudative etiology - 2/2 unclear etiology; high suspicion for infectious, possibly inflammatory, possibly malignancy - s/p pericardial window 10/13 - s/p Removal of Pericardial tube / R Pleural tube - Currently all cultures remain negative - BURKE / RF are negative - Pathology remains pending - c/w Zosyn and Doxycycline LLL Consolidation - likely 2/2 Pneumonia (Coverage for HCAP), possibly 2/2 effusion - Hemodynamically stable / afebrile - Cultures remain negative; Procalcitonin 0.22 - Will be receiving a CT of her chest to evaluate for PNA / Effusion; will consider nee for intervention - c/w Zosyn and Doxycycline - Pulmonology and Cardiothoracic surgery on consultation; appreciate their input RUE superficial thrombosis - Duplex US 10/16: Occlusive thrombus through the basilic vein - c/w full anticoagulation for Eliquis (re: also a. fib) KAELYN on CKD - Cr baseline of approximately 1.05; had peaked at 2.14 on 10/14 - Has continued to improve with diuresis - Will hold diuresis today - re: elevated over last 24 hours Leukocytosis - possibly 2/2 infectious etiology, possibly 2/2 reactive etiology - Afebrile / Hemodynamically stable - CRPs have improved - See above for antibiotics Normocytic anemia - Hg appears to remain stable Rheumatoid arthritis - Receives Remicade as an outpatient HTN - BP currently well controlled NIDDM2 - c/w ISS GI prophylaxis - s/p Protonix DVT prophylaxis - c/w full anticoagulation with Eliquis Code Status: - Discussed code status with patient: - Updated MOLST form to reflect DNR / DNI Disposition: - Will downgrade to PCU - Will start PT/OT VS,Fishbone, I+O VS, Fishbone, I+O Laboratory Tests 10/17/19 04:59 Vital Signs Date Time Temp Pulse Resp B/P (MAP) Pulse Ox O2 Delivery O2 Flow Rate FiO2 10/17/19 09:00 97.8 49 21 157/71 (99) 95 Nasal Cannula 3.0 10/15/19 14:00 50 I&O- Last 24 Hours up to 6 AM 10/17/19 06:00 Intake Total 1430 ml Output Total 1115 ml Balance 315 ml DYLAN ALVAREZ MD Oct 17, 2019 11:12
[2019-10-17] MEDS ORDERED: flumazeniL 0.5 MG/5 ML VIAL As Ordered ONE (11:17)
[2019-10-17] MEDS ORDERED: MIDAZOLAM INJ 2 MG/2 ML VIAL (J2250) As Ordered ONE (11:17)
[2019-10-17] MEDS ORDERED: LIDOCAINE 1% MDV 20ML VIAL As Ordered ONE (11:18)
--- NOTE | 2019-10-17 11:39 | IPN ---
DATE OF SERVICE: 10/17/2019 This is now postoperative day #4 for Mrs. More after her pericardial window. All things considered, she is doing extraordinarily well. She is sitting in the chair wide awake and alert and interacting. Her pain is being well controlled. In fact, she has almost no pain. Her chest tubes were removed yesterday. Her vital signs show a maximum temperature (Tmax) of 98.0 with a heart rate that ranges between 75 and 52 in a sinus rhythm, respiratory rate of 20-24 without the use of accessory muscles, who is 95% saturated on 3 liters nasal cannula and whose blood pressure is ranging between 103/61 to 194/78. Her intake and output over the past 24 hours has been recorded as 1600 in and 1312 out for a positivity of 288 mL. Weight is pending today. On physical examination, she still has the E-A egophony and bronchophony in the left lower hemithorax. Percussion note is dull to the lower left hemithorax. Cardiac examination does not show any murmurs, clicks, gallops, or rubs, although her auscultation is difficult secondary to her obesity. I do not hear any rubs. Abdomen is soft and nontender. Bowel sounds are positive. There is no hepatomegaly that I can feel through the obesity. No costovertebral angle (CVA) tenderness. Extremities show 1+ pretibial edema. No calf tenderness. Her right upper extremity is still swollen. Skin is warm, dry, and perfused without cyanosis or mottling, including that of the nail beds and the knees. Neck is supple. There is no jugular venous distention. No subcutaneous emphysema. Trachea is midline. Mouth shows her mucous membranes to be pink and moist. Lips and commissures without lesions. There is no thrush. Eyes show her pupils to be equal and reactive. Extraocular movements intact. Sclerae anicteric. Neurologic shows II-XII intact, along with gross motor and gross sensation intact. Gait is not tested. Psychiatric shows her to be awake, alert, and oriented times three with appropriate mood and affect and conversational. Her white count today is 18.8 with a hemoglobin and hematocrit of 11.0 and 37.3 slightly improved from 10.7 and 35.1 yesterday. Platelet count is 371 and stable. There is no differential today. Her electrolytes show a low total CO2 of 17. BUN and creatinine are 46 and 1.85. Glucose is 173. Calcium is 8.0 with an albumin of 1.6. Rheumatoid screen is negative, as is the antinuclear antibody (BURKE) screen. Pathology is still pending. Chest x-ray shows again other consolidation of the left lower lobe or compression or possibly even an effusion. I am not sure what the answer truly is, and I will obtain a CT scan. The trachea is in the midline. There is no volume loss. So, it may very well be fluid. IMPRESSION: 1. Pericardial effusion with tamponade relieved with a tube pericardiostomy and pericardial window, postoperative day #4. 2. Morbid obesity. 3. Status post asystole with tamponade and metabolic acidosis. 4. Diabetes. 5. Rheumatoid arthritis. 6. Hypertension. 7. Congestive heart failure (CHF). 8. Pulmonary hypertension. 9. Right heart failure secondary to left heart failure with a left ejection fraction of 35%. 10. Upper extremity deep venous thrombosis. PLAN AND DISCUSSION: She was put on Eliquis for her upper extremity deep venous thrombosis (DVT). She still has the findings on chest x-ray and on physical examination; and I will, therefore, obtain a CT scan. I do see air bronchograms jail out the lung, and I do not think this is mucus plugging. We still do not have a good explanation for her pericardial effusion, and we will await the pathology. By exclusion, I suppose that we will assign to a rheumatic disease.
--- NOTE | 2019-10-17 11:44 | RO ---
DATE OF PROCEDURE: 10/17/2019 PREPROCEDURE DIAGNOSIS: Pleural effusion. POSTPROCEDURE DIAGNOSIS: Pleural effusion. PROCEDURE: Insertion of left lateral chest tube. SURGEON: Jose Montes MD PLANNING ASSOCIATE: ANESTHESIA: FINDINGS: 1000 mL was eluded from the chest of tea-colored fluid. DESCRIPTION OF PROCEDURE: Under satisfactory moderate sedation achieved with 2 mg of Versed, the patient was prepped and draped in the usual sterile fashion. The skin and subcutaneous tissue and pleura were infiltrated with 1% lidocaine. Incision was made in the approximate 6th intercostal space, the inframammary fold, and a tunnel was created in the chest without difficulty. A #24 chest tube was placed without difficulty with the above results. Specimens were sent for the requisite cytologies, hematologies, chemistries, and bacteriologies. The chest tube was secured to the chest wall with #2 Tevdek suture. The patient tolerated the procedure well, and a chest x-ray is pending.
--- NOTE | 2019-10-17 11:49 | REP ---
Clinical: Evaluate for effusion. Technique: Axial noncontrast images from the thoracic inlet to the upper abdomen with coronal and sagittal re-formations. Findings: There is evidence for complete collapse to the lingula and left lower lobe along with moderate left pleural effusion. Small right pleural effusion and passive atelectasis to the right lower lobe noted. Minimal scattered linear atelectasis involving the basilar right upper lobe and right middle lobe are also identified. No pneumothorax. Evaluation of the mediastinum demonstrates cardiomegaly. No pericardial effusion. Small reactive mediastinal and hilar lymph nodes measure up to approximately 9 mm short axis diameter. Surrounding musculoskeletal structures demonstrate age-related changes without focal abnormality. Limited upper abdomen demonstrates normal bilateral adrenal glands. Impression: 1. Collapse to the lingula and left lower lobe with moderate left pleural effusion. Small right pleural effusion along with scattered right-sided atelectasis. 2. Cardiomegaly. No pericardial effusion. Electronically Signed by Sabino Cardenas MD 10/17/2019 11:40 A
--- NOTE | 2019-10-17 11:56 | REP ---
Clinical: Chest tube. Comparison: 10/17/2019. Findings: Chest tube at the left base with suspected decreased pleural fluid and improved aeration to the left hemithorax. No pneumothorax identified. Stable cardiomegaly and bilateral lower lobe atelectasis (left greater than right). Impression: Status post left chest tube with decreased pleural fluid and improved aeration. Electronically Signed by Sabino Cardenas MD 10/17/2019 11:47 A
[2019-10-17] MEDS: MORPHINE 2 MG/ML 1ML VIAL (J2270) IV PRN ×2 (12:08→15:23)
[2019-10-17] MEDS ORDERED: LIDOCAINE 1% MDV 20ML VIAL IM ONE (12:15)
[2019-10-17] MEDS ORDERED: MIDAZOLAM INJ 2 MG/2 ML VIAL (J2250) IV ONE (12:15)
[2019-10-17 12:44] LABS: PH BODY FLUID 7.787 UNITS (NOT ESTABLISHED); SOURCE, BODY FLUID pH PLEURAL
[2019-10-17 12:45] LABS: SOURCE, BODY FLUID PLEURAL
[2019-10-17 12:46] LABS: APPEARANCE, BODY FLUID TURBID (CLEAR)
[2019-10-17 12:47] LABS: PLEURAL FL COLOR YELLOW (COLORLESS)
[2019-10-17 13:06] LABS: AMYLASE, BODY FLUID 7 U/L (NOT ESTABLISHED); CHOLESTEROL, BODY FLUID < 50 MG/DL (NOT ESTABLISHED); LDH, BODY FLUID 123 U/L (NOT ESTABLISHED); SOURCE, BODY FLUID AMYLASE PLEURAL; SOURCE, BODY FLUID CHOL PLEURAL; SOURCE, BODY FLUID GLUCOSE PLEURAL; SOURCE, BODY FLUID LDH PLEURAL; SOURCE, BODY FLUID TRIG PLEURAL; TRIGLYCERIDE, BODY FLUID 16 MG/DL (NOT ESTABLISHED)
[2019-10-17] MEDS: **hydrALAZINE** 10 MG TAB PO SCH ×2 (13:26→22:02)
[2019-10-17] MEDS: LEVALBUTEROL 1.25 MG/0.5 ML CONCENTRATE NEB NEB PRN (14:04)
[2019-10-17] MEDS: PERCOCET 5MG/325MG TAB PO PRN (14:22)
--- NOTE | 2019-10-17 19:50 | IPN ---
DATE: 10/17/2019 NOTE: Ms. More reports that she is doing reasonably well. She had a chest tube placed this morning that has drained over a liter of fluid and she feels her breathing is easier. She denies any pain at the site. She has a cough that can be productive. Her sputum culture from 10/14/2019 was negative. She denies any chest pain or pressure. She had a bowel movement yesterday. No other concerns expressed. OBJECTIVE: PHYSICAL EXAMINATION: GENERAL: Ms. More is lying in bed in no acute distress. She can complete full sentences. No cough on evaluation. VITAL SIGNS: Temperature 97.8 which is her T-max, pulse 49-52, respiratory rate 20-24, blood pressure 157/71 with a MAP of 99. SpO2 95% on 3 liters initially and 93% on 5 liters after placement of chest tube. HEENT: Anicteric, nares: Patent bilaterally. Oropharynx clear. No lesions, fair dentition. Neck: Supple, without thyromegaly or masses, trachea is midline. LUNGS: Symmetric excursion, good air entry, improved aeration at the left base. No basilar crackles. No wheeze or rhonchi. Normal I to E. No accessory muscle usage or retractions. CARDIOVASCULAR: Regular rate and rhythm with a normal S1, S2, no murmur, rub or gallop appreciated. ABDOMEN: Positive bowel sounds, soft, nondistended, nontender, no hepatosplenomegaly or masses appreciated. EXTREMITIES: Without clubbing, cyanosis, or edema except her right upper extremity. Palpable pedal pulses bilaterally. LABORATORY DATA: CBC from this morning showed a hemoglobin of 11.0, hematocrit 37.3, platelet count 371,000, white blood cell count 18,800. Chemistry shows sodium 142, potassium 4.5, chloride 114, bicarbonate 17, anion gap 11, BUN 46, creatinine 1.9, glucose 173, calcium 8.0, total bilirubin 0.4, AST 17, ALT 42, alkaline phosphatase 79, LDH pending, CRP 11.7, total protein 7.1, albumin 1.6, procalcitonin from 10/16/2019 was 0.32. Rheumatoid factor less than 10 and BURKE screen negative. I reviewed her chest CT scan as well as the report from earlier today. That CT scan showed enlarged cardiac silhouette with slightly enlarged pulmonary arteries. There is a small right pleural effusion. There is a moderate left pleural effusion with extrinsic compression of the left lower lobe and likely lingula. I reviewed her chest x-ray as well as the report status post left chest tube placement. That showed a markedly decreased left-sided pleural effusion with a few air bronchograms. Yesterday's intake and output were 1600 in and 1312 out making her positive 288. Thus far today 240 in and 190 out, making her positive 50. Yesterday's weight was 78.7 kg. IMPRESSION: 1. Acute hypoxic respiratory failure, appropriately replaced with nasal cannula. 2. Left-sided moderate effusion, status post tube thoracostomy. 3. Right upper extremity DVT, on Eliquis. 4. Exudative pericardial effusion; cultures negative. 5. Rheumatoid arthritis, per chart. 6. Diabetes mellitus. 7. Hypertension. 8. Coronary artery disease. 9. History of tobacco usage. 10. Lower extremity DVT, prophylaxis with SCD, TEDs, and now fully anticoagulated. 11. ID, on doxycycline. 12. Decreased bicarbonate. Differential would be secondary to hyperchloremic metabolic acidosis, worsening renal function, early sepsis, or other. 13. Atrial fibrillation, rate controlled at present time, followed by cardiology. RECOMMENDATIONS: 1. Await pleural fluid results. 2. Continue hyperinflation / airway clearance therapy. 3. Given the change in bicarbonate, will send blood cultures. I suspect this is more secondary to renal changes and hyperchloremic metabolic acidosis. There is no identified source of infection and she has been on antibiotics. Her procalcitonin would argue against a significant infection as would her improving WBC count. [facility]
[2019-10-17] MEDS: RAMELTEON 8 MG TAB (ROZEREM) PO SCH (21:02)
[2019-10-18] VITALS (10 sets, daily range): BP systolic 135–163; BP diastolic 63–110
[2019-10-18] MEDS: PIPERACILLIN/TAZOBACTAM SOD 3.375 GM in D5W MINI-BAG PLUS 50 ML IV SCH ×4 (03:34→22:01)
[2019-10-18] MEDS: SODIUM CHLORIDE 0.9% INJ 10 ML SYR IV SCH (05:42)
[2019-10-18] MEDS: **hydrALAZINE** 10 MG TAB PO SCH (05:51)
[2019-10-18] MEDS: SLF 3 ML SYR IV SCH ×3 (05:52→22:03)
--- NOTE | 2019-10-18 07:29 | IPN ---
DATE: 10/18/2019 Mrs. More had a relatively good day yesterday. She in the morning got a chest tube on the left side of the chest and drained about a liter of fluid. It helped her breathing. For the rest of the day she was relatively comfortable even though she said that she has occasional colicky type of pain in her abdomen. Denies much trouble with breathing, but she has not done any motion hardly at all. Denies any chest pain per se. Vital signs this morning reveal blood pressure 163/70. Heart rate has been in the high 40s and low 50s, but she has been maintaining sinus rhythm. Saturation 94% on 2 liters of oxygen by nasal cannula. Her fluid balance yesterday was recorded as approximately equal. She made about 550 mL of urine, but she did not have the Peck catheter all day so consequently its documentation is not completely accurate. She put out about 1320 mL throughout 24 hours from her chest tube. Weight is recorded 75.7 kg, which is about 3 kg less than 2 days ago. She is alert, oriented and appropriate. Her jugular venous pulse (JVP is about 4 or 5 cm above the clavicle. Lungs are relatively clear in the way of improved air movement, but there are end inspiratory crackles bilaterally. Heart exam reveals regular bradycardia. I do not appreciate any distinct gallop or rub. Abdomen is soft, but obese. She does not have any significant peripheral edema. LABORATORIES: Basic metabolic panel: Sodium 142, potassium 4.5, BUN 46, creatinine 1.9 and glucose 173. CBC: Hemoglobin 11, hematocrit 37.3, platelet count 371,000 and WBC count 18.8. ASSESSMENT/PLAN: Mrs. More is a rather complicated 78-year-old female. She presented with a large pericardial effusion that was exudative in nature. The etiology is still elusive. The rheumatoid factor and BURKE were negative. She denies any recent history of any illness to suggest viral etiology, but overall she is a poor historian so I do not believe it is overly reliable. She had a pericardial window placed by Dr. Montes and this problem should be resolved. The other issue is LV dysfunction and paroxysmal atrial fibrillation. She has been maintaining sinus rhythm, but she has underlying bundle branch block and she is quite bradycardic. She has not been receiving any of her beta-blockers. Because the pericardial drain was removed earlier and she has not had any recent atrial fibrillation, I am going to cut down the dose of amiodarone to just 200 mg twice a day. Finally, she continues to have output from the chest tube and there is evidence for congestive heart failure and blood pressure is relatively high. I am going to advance the dose of hydralazine a little bit higher and add isosorbide. I am also going to give her a single dose of IV furosemide. Her condition remains quite complicated and she is still severely ill, but I believe she is better than she was a day before.
[2019-10-18] MEDS ORDERED: FUROSEMIDE 100 MG/10 ML VIAL (J1940) IV ONE (07:30)
[2019-10-18 07:50] LABS: BASO # 0.1 10^3/uL (0.0-0.2); BASO % 0.4 % (0.0-1.0); EOS # 0.3 10^3/uL (0.0-0.5); EOS % 1.5 % (0.0-3.0); HEMOGLOBIN 10.4 g/dl (12.0-15.5); LYMPH # 1.5 10^3/uL (1.5-5.0); LYMPH % 7.3 % (24.0-44.0); MEAN CORPUSCULAR HEMOGLOBIN 27.4 pg (27.0-33.0); MEAN CORPUSCULAR HGB CONC 30.6 g/dl (32.0-36.5); MEAN CORPUSCULAR VOLUME 89.5 fl (80.0-96.0); MONO # 1.3 10^3/uL (0.0-0.8); MONO % 6.4 % (0.0-5.0); NEUTROPHILS % 83.9 % (36.0-66.0); PLATELET COUNT, AUTOMATED 449 10^3/uL (150-450); WHITE BLOOD COUNT 20.3 10^3/uL (4.0-10.0)
[2019-10-18] MEDS: DOXYCYCLINE HYCLATE 100 MG in D5W MINI-BAG PLUS 100 ML IV SCH ×2 (08:01→20:22)
[2019-10-18] MEDS: METOPROLOL TART 12.5 MG PER 1/2 TAB PO SCH ×2 (08:02→20:13)
[2019-10-18] MEDS: APIXABAN 5 MG TAB (ELIQUIS) PO SCH ×2 (08:02→20:22)
[2019-10-18] MEDS: AMIODARONE 200 MG TAB (PACERONE) PO SCH ×2 (08:02→20:23)
[2019-10-18] MEDS: PERCOCET 5MG/325MG TAB PO PRN ×3 (08:03→23:13)
[2019-10-18] MEDS: ISOSORBIDE DIN. (ISORDIL) 20 MG TAB PO SCH ×3 (08:07→18:02)
[2019-10-18 08:14] LABS: ALBUMIN 1.6 GM/DL (3.2-5.2); BILIRUBIN,TOTAL 0.6 MG/DL (0.2-1.0); CALCIUM LEVEL 7.9 MG/DL (8.8-10.2); CREATININE FOR GFR 1.94 MG/DL (0.55-1.30); GLOMERULAR FILTRATION RATE 26.7 (>39); MAGNESIUM LEVEL 2.2 MG/DL (1.8-2.4); TOTAL PROTEIN 6.5 GM/DL (6.4-8.2)
--- NOTE | 2019-10-18 08:30 | REP ---
Clinical: Endotracheal tube. Comparison: 10/17/2019. Findings: Chest tube at the left base remains stable. Left lower lobe opacities suggesting elements of consolidation and effusion are unchanged. Increased opacity at the right base suggests new area of atelectasis. No obvious pneumothorax. Impression: 1. Opacities in the left lower lobe suggesting consolidation and effusion are stable. 2. No opacities in the right lower lobe suggest atelectasis. Electronically Signed by Sabino Cardenas MD 10/18/2019 08:21 A
--- NOTE | 2019-10-18 10:03 | IPN ---
DATE: 10/18/2019 I attended Cheryl More here in the intensive care unit (ICU). The patient has been examined and chart reviewed. I spoke with the nurse at the bedside, as well as the patient and family that accompanies her. She has a left chest tube in place that continues to drain. Maximum temperature (t-max) overnight 97.9, blood pressure 140 to 160s, heart rate generally in the 50s, respiratory rate 18 to 22 without accessory muscle use. Chest x-ray is reviewed. Chest tube in good position. There is still increased density at the left base. There is diffuse increase in vasculature, consistent with cardiomegaly. PHYSICAL EXAMINATION : She is awake, alert, and appropriate. She is fairly comfortable having just received some morphine. HEENT: Normocephalic, atraumatic. Pupils are equal and reactive to light. Trachea is midline. Chest shows diminished but reasonably symmetric expansion. There is egophony at the left base with decreased breath sound intensity. There are bibasilar crackles. There is egophony at the lower base as well but not convincing rub. Cardiac exam is distant with muffled tones but generally regular. Peripheral pulses diminished but palpable. Trace edema. Abdomen is obese, soft, nontender. Normoactive bowel sounds. No splenomegaly or masses. Extremities: Without clubbing. Neurologic: She is awake, alert, and appropriate. Psychiatric: Normal mood and affect. LABORATORY DATA: White blood cell count 20.3, hemoglobin 10.4, platelet count 449,000, 83.9% segmented neutrophils, no bands. Sodium 139, potassium 4.0, chloride 107, CO2 of 29, BUN 51, creatinine 1.94, which is elevated from yesterday. No new culture data available. Pleural fluid shows no organisms to date. IMPRESSION: 1. Hypoxemia, reasonably compensated on nasal cannula oxygen. 2. Atelectasis, multifactorial. 3. Pericardial and pleural effusions, etiology remains somewhat unclear. 4. Renal failure. RECOMMENDATIONS: At this point, I am in agreement with her current regimen. We await the final etiology of the pleural and pericardial fluids. Chest tube is being managed by Dr. Montes. We will increase her out of bed as able. I am in agreement with her current plan, as outlined by the primary team. We will continue to follow as needed.
[2019-10-18] MEDS: TOBRADEX OPHTH SUSP 2.5 ML OU SCH ×3 (10:15→22:01)
--- NOTE | 2019-10-18 12:03 | IPNPDOC ---
Text Note Date of Service The patient was seen on 10/18/19. NOTE HOSPITALIST NOTE S: Pt examined at bedside in ICU with family in room. Doing well and has no complaints besides pain at chest tube site. Remains in sinus bradycardia with HR in 50s-60s and asymptomatic. Continues to be fully alert & oriented and working with therapy. No reported events overnight. PE: Vitals: see below General: NAD, sitting up comfortably in chair, A&Ox3, appropriately conversant HEENT: NCAT, EOMI, PEERL, anicteric sclera, moist mucous membranes, neck supple with no appreciable JVD CV: RRR-borderline bradycardic.. No murmurs or clicks or rub. 1+ LE edema b/l RESP: Equal chest rise bilaterally. Bibasilar crackles. Otherwise clear throughout. Chest tube in place with bloody drainage ABD: soft, NT, ND. Normoactive sounds : Peck in place with clear yellow urine EXTREMITIES: 2+ radial pulses b/l MSK: 5/5 throughout, good roll scale man strength NEURO: able to appropriately follow commands, answers appropriately, no focal deficit A/P: This is 78-year-old female brought in by family for altered mental status after she sustained a mechanical fall. She was found to be septic on admission. During her initial workup, she was found to have questionable left lower lobe infiltrate, bilateral pleural effusions, large cardiomegaly, and what appears new onset A. fib. She was taken urgently to the OR for pericardial window, and postoperatively went into RVR in PACU, uncontrolled with B-hank attempt, and went to asystole after unsuccessful cardioversion and extubation was attempted. [see addendum to 10/13 Hospitalist note for code details.] Since then, she has been extubated and tolerating nasal cannula. 1. Acute hypoxemic respiratory failure S/P cardiac arrest with resuscitation - Likely multifactorial: possible sepsis from possible left lower lobe pneumonia, possibly 2/2 large pericardial effusion and acutely decompensated CHF, possibly 2/2 metabolic acidosis - Extubated 10/15 and breathing well on 3L NC this am. Wean off as tolerated. - PulmCrit following, appreciate input 2. New onset A. fib RVR - Likely 2/2 acutely ill state, possibly induced by pericardial effusion vs new onset CHF - Maintaining in sinus bradycardia 50s-60s, asymptomatic - Echo on admission includes: EF 35%, grade 2 diastolic dysfunction, diffuse hypokinesis, mod-large pericardial effusion with some tamponade but no collapse, dilated IVC - Appreciate Cardiology input: started on Amiodarone, Lopressor continued. Monit or tele. Anticoagulation with Eliquis 3. Acutely decompensated systolic and diastolic CHF - continues to be hypervolemic on exam, hemodynamically stable - Gentle diuresis with close monitoring - strict I/O, daily wt, 2L fluid restriction 4. Pericardial effusion with impending tamponade, exudative - s/p pericardial window 10/13 & removal of pericardial & right pleural tube - Etiology unclear, suspicion for inflammatory vs infectious cause - RF/BURKE negative. Cytology negative for malignancy - Continue Doxy & Zosyn until full fluid analysis result 5. LLL consolidation, possible pneumonia vs recurrent effusion - On antibiotics and s/p ventilation - left chest tube in place. Appreciate Pulm & Cardiothoracic input 6. RUE superficial thrombosis - Doppler: Occlusive thrombus through the basilic vein. - on Eliquis also for Afib 7. KAELYN on CKD -Cr up to 1.94 this am previously improved with diuresis likely 2/2 worsening hypervolemic status monitor with diuresis 8. Leukocytosis CRP and leukocytosis increased Possible infectious versus reactive Clinically improving, afebrile, hemodynamic stable On broad antibiotics. Continue monitoring RA: on Remicaide infusions HTN: controlled DM: fs & hypoglycemic protocol in place DVT ppx: eliquis CODE: DNR/DNI DISPO: pending clinical improvement. PT/OT and possible rehab after. VS,Fishbone, I+O VS, Fishbone, I+O Laboratory Tests 10/18/19 07:27 Vital Signs Date Time Temp Pulse Resp B/P (MAP) Pulse Ox O2 Delivery O2 Flow Rate FiO2 10/18/19 08:33 22 10/18/19 08:07 140/63 10/18/19 08:02 53 10/18/19 08:00 2.0 10/18/19 07:41 97.1 94 Nasal Cannula 10/15/19 14:00 50 I&O- Last 24 Hours up to 6 AM 10/18/19 06:00 Intake Total 1705 ml Output Total 1965 ml Balance -260 ml GME ATTESTATION GME ATTESTATION My faculty preceptor for this patient encounter was physically present during the encounter and was fully available. All aspects of the patient interview, examination, medical decision making process, and medical care plan development were reviewed and approved by the faculty preceptor. The faculty preceptor is aware and concurs with the plan as stated in the body of this note and will attest to such by his/her cosignature. ATTENDING NOTE I, Néstor Alvarez, have independently examined this patient and performed my own physical exam, as well as reviewed the documentation and edited where necessary. I have discussed in detail with the resident / student the findings and plan of treatment as documented by the resident / student and edited their note. I agree with their findings and treatment plan and have edited their documentation. I will continue to follow the patient during this hospital stay. FRANCOISE WINSTON DO Oct 18, 2019 12:03 NÉSTOR ALVAREZ MD Oct 18, 2019 14:30
[2019-10-18 14:08] LABS: BODY FLUID RHEUMATOID SCREEN NEGATIVE (NEGATIVE)
[2019-10-18] MEDS ORDERED: LIDOCAINE 1% MDV 20ML VIAL As Ordered ONE (14:08)
[2019-10-18 14:15] LABS: SOURCE, BODY FLUID ALBUMIN PLEURAL; SOURCE, BODY FLUID TOT PROTEIN PLEURAL; TOTAL PROTEIN, BODY FLUID 2.8 G/DL (NOT ESTABLISHED)
[2019-10-18] MEDS: **hydrALAZINE HCL** 25 MG TAB PO SCH ×2 (16:20→22:03)
[2019-10-18] MEDS ORDERED: PILL CUTTER 1 EACH XX PRN (16:30)
[2019-10-18] MEDS: SODIUM CHLORIDE HYPERTONIC 3% 15ML NEB SOL INH SCH ×2 (19:00→19:27)
[2019-10-18] MEDS: LEVALBUTEROL 1.25 MG/0.5 ML CONCENTRATE NEB NEB PRN (19:27)
[2019-10-18] MEDS: ACETYLCYSTEINE 20% 4 ML VIAL (200MG/ML) INH SCH (19:27)
[2019-10-18] MEDS: RAMELTEON 8 MG TAB (ROZEREM) PO SCH (20:23)
[2019-10-19] VITALS (9 sets, daily range): BP systolic 107–160; BP diastolic 53–72
[2019-10-19] MEDS: PIPERACILLIN/TAZOBACTAM SOD 3.375 GM in D5W MINI-BAG PLUS 50 ML IV SCH ×4 (02:56→20:13)
[2019-10-19] MEDS: PERCOCET 5MG/325MG TAB PO PRN ×3 (03:44→16:18)
[2019-10-19] MEDS: SODIUM CHLORIDE HYPERTONIC 3% 15ML NEB SOL INH SCH ×7 (04:00→23:41)
[2019-10-19 04:46] LABS: HEMATOCRIT 31.7 % (36.0-47.0); HEMOGLOBIN 9.8 g/dl (12.0-15.5); MEAN CORPUSCULAR HEMOGLOBIN 27.5 pg (27.0-33.0); MEAN CORPUSCULAR HGB CONC 30.9 g/dl (32.0-36.5); PLATELET COUNT, AUTOMATED 470 10^3/uL (150-450); RED BLOOD COUNT 3.56 10^6/uL (4.00-5.40); WHITE BLOOD COUNT 21.2 10^3/uL (4.0-10.0)
[2019-10-19] MEDS: SLF 3 ML SYR IV SCH ×3 (06:15→22:13)
[2019-10-19] MEDS: ISOSORBIDE DIN. (ISORDIL) 20 MG TAB PO SCH ×3 (06:24→17:31)
[2019-10-19] MEDS: **hydrALAZINE HCL** 25 MG TAB PO SCH ×3 (06:25→22:21)
[2019-10-19] MEDS: ACETYLCYSTEINE 20% 4 ML VIAL (200MG/ML) INH SCH ×2 (07:24→19:35)
--- NOTE | 2019-10-19 07:58 | REP ---
Clinical: Shortness of breath. Comparison: 10/18/2019. Findings: Chest tube at the left base remain stable. And left-sided opacities suggest elements of consolidation as well as possible residual pleural fluid. Right basilar opacity consistent with consolidation and atelectasis. No pneumothorax. Skeletal structures stable. Impression: Relatively stable chest x-ray as above. No new acute process identified. Electronically Signed by Sabino Cardenas MD 10/19/2019 07:50 A
[2019-10-19] MEDS: TOBRADEX OPHTH SUSP 2.5 ML OU SCH ×3 (08:42→20:13)
[2019-10-19] MEDS: DOXYCYCLINE HYCLATE 100 MG in D5W MINI-BAG PLUS 100 ML IV SCH ×2 (08:42→20:10)
[2019-10-19] MEDS: APIXABAN 5 MG TAB (ELIQUIS) PO SCH ×2 (08:42→20:11)
[2019-10-19] MEDS: NYSTATIN 100,000 UNITS/GM TOPICAL PWD 15 GM TOP PRN (08:42)
[2019-10-19] MEDS: METOPROLOL TART 12.5 MG PER 1/2 TAB PO SCH ×2 (08:43→20:12)
[2019-10-19] MEDS: AMIODARONE 200 MG TAB (PACERONE) PO SCH ×2 (08:43→20:12)
[2019-10-19] MEDS: MORPHINE 2 MG/ML 1ML VIAL (J2270) IV PRN (10:11)
--- NOTE | 2019-10-19 10:55 | REP ---
PICC line insertion under ultrasound guidance. The procedure was performed by MAGI Barbosa, under the direct supervision of Dr. Barboza. The risks and benefits of the procedure were explained to the patient and informed consent was obtained both verbally and written. Directly prior to the start of the procedure, a formal timeout was completed in the procedure room. The left basilic vein was localized using ultrasound guidance. The skin was prepped and draped in the sterile fashion. 1% lidocaine 10 mg/ml was used as a local anesthetic. Using ultrasound guidance multiple attempts to gain access through the left medial brachial vein and the basilic vein were attempted. After multiple attempts followed by multiple infiltrates it was decided to stop the procedure and try and at a different date. The patient tolerated the procedure well and there were no immediate complications. 0.3 minutes of fluoroscopy time was utilized for this procedure. Some fluoroscopic images are performed with last image hold technology. These images require no additional radiation. Reviewed by MAGI Martinez 10/19/2019 07:46 A Electronically Signed by Nicolas Barboza MD 10/19/2019 10:46 A
[2019-10-19] MEDS ORDERED: PERCOCET 5MG/325MG TAB PO ONE (11:00)
[2019-10-19] MEDS: DOCUSATE SODIUM 100 MG CAP PO SCH ×3 (12:02→20:23)
[2019-10-19] MEDS: MOM 30ML SUSPENSION UDC PO SCH (12:02)
--- NOTE | 2019-10-19 12:21 | IPN ---
DATE: 10/19/2019 I did not get to see Ms. More yesterday as she was downstairs getting a peripherally inserted central catheter (PICC) line. Today, she is complaining of diffuse abdominal pain, but her abdomen is soft and tenderness. She has not had a bowel movement for over a week. Her vital signs show a maximum temperature (t-max) of 98.9 with a heart rate that ranges between 55 and 48 in a sinus rhythm, respiratory rate of 20 to 22 without the use of accessory muscles, who is 92 to 89% saturated on 2 liters nasal cannula. Her blood pressure is ranging between 136/63 to 153/64. Her intake and output over the last 24 hours has been recorded as 1260 in and 590 out for a positivity of 670 mL. She has put 35 mL out of the chest tube and there is no air leak. Weight today is 77.5 kg compared to 75.7 kg yesterday. PHYSICAL EXAMINATION: LUNGS: She has bronchophony in the left lower hemithorax. There is also E-to-A egophony. Right side shows inspiratory rales between mid and late inspiration. Percussion notes are full to the diaphragm as far as I can tell through her morbid obesity. CARDIAC EXAM: Without murmurs, clicks, gallops, particularly there is no pericardial friction rub. I cannot feel his point of maximum impulse (PMI). S1, S2 are normal. ABDOMEN: Soft, nontender. Bowel sounds hyperactive. There is no hepatomegaly. I cannot feel her liver through her morbid obesity. EXTREMITIES: Show trace pretibial edema. No calf tenderness. She still has the differential swelling between the right and left upper extremities with the right being more swollen than the left. She has a known deep vein thrombosis (DVT) of the right basilic vein, for which she is on Eliquis. SKIN: Warm, dry and perfused without cyanosis or mottling, including that of the nail beds and knees. NECK: Supple. There is no jugular venous distention. No subcutaneous emphysema. Trachea is midline. MOUTH: Shows her mucous membranes to be pink and moist. Lips and commissures without lesions. There is no thrush. EYES: Show her pupils to be equal and reactive. Extraocular motion intact. Sclerae anicteric. NEUROLOGIC: Shows II through XII intact with gross motor and gross sensation intact. Gait is not tested. PSYCHIATRIC: Shows her to be awake and alert, oriented times three with appropriate mood and affect and conversational. LABORATORY DATA Her white count is still elevated at 21.2 and continues to increase. Hemoglobin and hematocrit are 9.8 and 31.7, slightly decreased from 10.4 and 34.0 yesterday. Platelet count is 470 and stable. There is no differential on her. Electrolytes are normal with a BUN and creatinine of 51 and 1.94, which continues to increase. Glucose is 169 with a calcium of 7.9 and a corresponding albumin of 1.6. Her chest x-ray again shows some clearing of the left hemithorax, but it looks as though the lung is starting to open up. There are air bronchograms in the left lower lobe, it is less dense than it was yesterday. Chest tubes are in good place. This was again done portably and I have rewritten all of her chest x-rays to be PA and lateral downstairs. I see air bronchograms in the left lower lobe continuing. IMPRESSION: 1. Pericardial effusion with tamponade relieved with a tube pericardiostomy and pericardial window, postoperative day 6. 2. Morbid obesity. 3. Status post asystole with tamponade and metabolic acidosis. 4. Diabetes. 5. Rheumatoid arthritis. 6. Hypertension. 7. Congestive heart failure (CHF). 8. Pulmonary hypertension. 9. Left pleural effusion, relieved with chest tube. 10. Right heart failure secondary to left heart failure with ejection fraction of 35%. 11. Upper extremity deep vein thrombosis (DVT). 12. Infiltrative process of left lower lobe, possible pneumonia. PLAN/DISCUSSION: She is already on antibiotics, including Zosyn and doxycycline. She is also on lung expansion therapy, including Mucomyst and hypertonic saline nebulizers. Her white count is not coming down and perhaps a lot of this is going to be explained by pneumonia. The x-ray is difficult to interpret. I am therefore going to obtain a CT scan of the chest now that her fluid is drained. Also, scan her abdomen, as she has increased pain way out of proportion with the physical examination. There are no reports of melena and I do not think that this represents intestinal ischemia, although it could. Certainly, she is not hyperkalemic, nor does she look to be acidotic.
--- NOTE | 2019-10-19 14:09 | REP ---
Clinical: Left lower lobe infiltrate. Comparison: 10/17/2019 Technique: Axial noncontrast images from the thoracic inlet to the upper abdomen with coronal and sagittal re-formations. Findings: Bilateral lower lobe consolidations with air bronchograms, moderate right pleural effusion, small residual left pleural effusion with chest tube at the left base, and scattered bilateral atelectasis noted. Small residual anterior left pneumothorax and minimal amounts of subcutaneous emphysema in the left chest wall noted. Mediastinum demonstrates stable cardiomegaly without pericardial effusion. No obvious adenopathy. Impression: 1. Left hemithorax demonstrates chest tube with near complete resolution of the pleural effusion, residual areas of consolidation/atelectasis, and small anterior left pneumothorax. Minimal amount of subcutaneous emphysema noted at the chest tube insertion site. 2. Right hemithorax demonstrates moderate pleural effusion, lower lobe consolidation with air bronchograms, and scattered atelectasis which is increased when compared to 10/17/2019. Electronically Signed by Sabino Cardenas MD 10/19/2019 02:00 P
--- NOTE | 2019-10-19 14:19 | REP ---
Clinical: Chest and abdominal pain. Technique: Axial noncontrast images from the lung bases to the pubic symphysis with coronal and sagittal re-formations. Findings: Please refer to complete chest CT for lung base findings. Liver, spleen, pancreas, gallbladder, bilateral adrenal glands and kidneys are essentially normal for noncontrast evaluation. The enteric system is without obstruction or acute inflammatory process. Pelvis demonstrates normal bladder and evidence for prior hysterectomy. No ascites. No free air. No adenopathy. Atherosclerotic changes to the aorta and vasculature noted without aneurysm. Musculoskeletal structures demonstrate age-related changes without focal abnormality. Mild/moderate subcutaneous edema may be related to fluid overload or underlying cardiovascular disease. Impression: 1. No acute abdominopelvic pathology appreciated. 2. Mild/moderate subcutaneous edema. 3. No ascites, free air, or adenopathy. Electronically Signed by Sabino Cardenas MD 10/19/2019 02:11 P
[2019-10-19] MEDS: HumaLOG INSULIN (NovoLOG) PER UNIT SC SCH ×2 (17:34→20:13)
--- NOTE | 2019-10-19 18:25 | IPNPDOC ---
Text Note Date of Service The patient was seen on 10/19/19. NOTE HOSPITALIST NOTE S: Pt examined at bedside in ICU. No issues overnight. Continues to drain out of her left chest tube. Urinating independently since Peck was removed yesterday 10/18. Remains in asymptomatic sinus bradycardia with stable blood pressures. Tolerating all meds well and working with PT and OT. No complaints today. PE: Vitals: see below General: NAD, resting comfortably in bed, A&Ox3, appropriately conversant HEENT: NCAT, EOMI, PEERL, anicteric sclera, moist mucous membranes, neck supple with no appreciable JVD CV: Bradycardic with regular rhythm. No clicks or rubs. 1+ LE edema b/l, 3/6 pansystolic murmur best left sternal side RESP: Equal chest rise bilaterally. Bibasilar crackles. Otherwise clear throughout. Chest tube in place on the left with bloody drainage ABD: soft, NT, ND. 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 She was found to be septic on admission. During her initial workup, she was found to have questionable left lower lobe infiltrate, bilateral pleural effusions, large cardiomegaly, and what appears new onset A. fib. She was taken urgently to the OR for pericardial window, and postoperatively went into RVR in PACU, uncontrolled with B-hank attempt, and went to asystole after unsuccessful cardioversion and extubation was attempted. [see addendum to 10/13 Hospitalist note for code details.] Since then, she has been extubated and tolerating nasal cannula with recurrent effusions. 1. Acute hypoxemic respiratory failure S/P cardiac arrest with resuscitation - Continues to require supplement oxygen. Wean off as tolerated - s/p extubation 10/15 - Likely multifactorial: possible sepsis from left lower lobe pneumonia vs large pericardial effusion vs acutely decompensated CHF, possibly 2/2 metabolic a cidosis - PulmCrit following, appreciate input - Has recurrent pleural effusion with left-sided chest tube still in place actively draining. Thoracic surgery following, appreciate input; repeat imaging pending 2. Acutely decompensated systolic and diastolic CHF - continues to be hypervolemic on exam, hemodynamically stable - Echo includes: EF 35%, grade 2 diastolic dysfunction, diffuse hypokinesis, mod-large pericardial effusion with some tamponade but no collapse, dilated IVC - Gentle diuresis with close monitoring - strict I/O, daily wt, 2L fluid restriction 3. New onset A. fib RVR - Likely 2/2 acutely ill state, possibly induced by pericardial effusion vs new onset CHF - Maintaining in sinus bradycardia 50s-60s, asymptomatic - Appreciate Cardiology input: Amiodarone & Lopressor continued. Monitor tele. Anticoagulation with Eliquis 4. Pericardial effusion with impending tamponade, exudative - s/p pericardial window 10/13 & removal of pericardial & right pleural tube - Etiology unclear, suspicion for inflammatory vs infectious cause - RF/BURKE negative. Cytology negative for malignancy - Continue Doxy & Zosyn until full fluid analysis result 5. RUE superficial thrombosis - Doppler: Occlusive thrombus through the basilic vein. - on Eliquis also for Afib 6. KAELYN on CKD 3 - likely 2/2 worsening hypervolemic status - previously improved with diuresis - monitor with diuresis 7. Persistent leukocytosis - CRP and leukocytosis without much improvement - Possible infectious versus reactive - Clinically improving, afebrile, hemodynamic stable - On broad antibiotics. Peripheral smear ordered RA: on Remicaide infusions HTN: controlled DM: fs & hypoglycemic protocol in place DVT ppx: eliquis CODE: DNR/DNI DISPO: pending clinical improvement. PT/OT and possible rehab after. VS,Fishbone, I+O VS, Fishbone, I+O Laboratory Tests 10/19/19 04:27 Vital Signs Date Time Temp Pulse Resp B/P (MAP) Pulse Ox O2 Delivery O2 Flow Rate FiO2 10/19/19 12:00 107/53 10/19/19 10:50 24 10/19/19 10:11 Nasal Cannula 10/19/19 08:43 55 10/19/19 04:00 98.9 92 3.0 10/15/19 14:00 50 I&O- Last 24 Hours up to 6 AM 10/19/19 06:00 Intake Total 1290 ml Output Total 428 ml Balance 862 ml GME ATTESTATION GME ATTESTATION My faculty preceptor for this patient encounter was physically present during the encounter and was fully available. All aspects of the patient interview, examination, medical decision making process, and medical care plan development were reviewed and approved by the faculty preceptor. The faculty preceptor is aware and concurs with the plan as stated in the body of this note and will attest to such by his/her cosignature. FRANCOISE WINSTON DO Oct 19, 2019 15:25
[2019-10-19] MEDS: LEVALBUTEROL 1.25 MG/0.5 ML CONCENTRATE NEB NEB PRN ×2 (19:35→23:41)
[2019-10-19] MEDS ORDERED: FUROSEMIDE 40 MG/4 ML VIAL (J1940) IV ONE (20:00)
[2019-10-19] MEDS: RAMELTEON 8 MG TAB (ROZEREM) PO SCH (20:12)
[2019-10-20] VITALS (10 sets, daily range): BP systolic 115–169; BP diastolic 53–74
[2019-10-20] MEDS: ACETAMINOPHEN TAB 650MG DOSE (2X325MG) PO PRN (02:41)
[2019-10-20] MEDS: PIPERACILLIN/TAZOBACTAM SOD 3.375 GM in D5W MINI-BAG PLUS 50 ML IV SCH ×4 (02:42→20:19)
[2019-10-20] MEDS: LEVALBUTEROL 1.25 MG/0.5 ML CONCENTRATE NEB NEB PRN ×5 (03:45→23:34)
[2019-10-20] MEDS: SODIUM CHLORIDE HYPERTONIC 3% 15ML NEB SOL INH SCH ×6 (03:45→23:34)
[2019-10-20 05:18] LABS: HEMATOCRIT 30.4 % (36.0-47.0); HEMOGLOBIN 9.4 g/dl (12.0-15.5); MEAN CORPUSCULAR HEMOGLOBIN 27.2 pg (27.0-33.0); MEAN CORPUSCULAR HGB CONC 30.9 g/dl (32.0-36.5); MEAN CORPUSCULAR VOLUME 88.1 fl (80.0-96.0); PLATELET COUNT, AUTOMATED 495 10^3/uL (150-450); RED BLOOD COUNT 3.45 10^6/uL (4.00-5.40); WHITE BLOOD COUNT 22.8 10^3/uL (4.0-10.0)
[2019-10-20 05:31] LABS: C REACTIVE PROTEIN QUANTITATIV 5.87 MG/DL (0.00-0.30); CALCIUM LEVEL 8.1 MG/DL (8.8-10.2); CREATININE FOR GFR 3.56 MG/DL (0.55-1.30); GLOMERULAR FILTRATION RATE 13.3 (>39); POTASSIUM SERUM 4.3 MEQ/L (3.5-5.1)
[2019-10-20] MEDS: ISOSORBIDE DIN. (ISORDIL) 20 MG TAB PO SCH ×3 (06:00→17:18)
[2019-10-20] MEDS: SLF 3 ML SYR IV SCH ×2 (06:00→14:00)
[2019-10-20] MEDS: **hydrALAZINE HCL** 25 MG TAB PO SCH ×3 (06:00→21:15)
--- NOTE | 2019-10-20 06:52 | IPN ---
DATE: 10/19/2019 Patient was seen earlier this evening, she was sitting in the chair in no acute distress at rest and having a bronchodilator treatment. The last time she was seen here was on 10/15/2019. She is doing much better and she states she is getting stronger. She denies any chest pain, palpitations. She was initially seen on 10/13/2019 after her pericardial window, which was complicated by paroxysmal atrial fibrillation, then bradyarrhythmia/sinus pause after receiving multiple doses of beta-hank and mechanical resuscitation. When I saw her on 10/15/2019, she was having episodes of PAF consistent with tachy-darwin arrhythmias. Her heart rate dropped to 40 beats per minute one while is in sinus rhythm and when she is in atrial fibrillation. When I was at the bedside, she going at about 120 beats per minute. She has been on amiodarone and a small dose of beta-hank with metoprolol tartrate, but has not been receiving the metoprolol tartrate for the last couple of days. She continued to receive the amiodarone. Her echocardiogram on admission revealed also a moderately depressed global left ventricular systolic function and moderate pulmonary hypertension, besides the pericardial effusion. She is also being treated for pneumonia, diagnosed on admission by chest x-ray. Since my last visit with her, she was diagnosed with right upper extremity superficial thrombosis. She has been back on p.o. anticoagulation therapy with Eliquis. Earlier today, a PICC line was inserted for her. Her kidney function has improved and remained stable. PHYSICAL EXAMINATION: This evening, the patient is alert and oriented, in no acute distress at rest and her vital signs when I saw her revealed a blood pressure of 131/58 with a pulse of 48, respiration 20 and her maximum temperature was 97.8 degrees Fahrenheit with an oxygen saturation of 95% on 2 liters nasal cannula. She had a positive fluid balance of 670 mL for 10/18/2019 and so far today it is about 812 mL. Examination of the head: Atraumatic. Neck is supple and no JVD appreciated while sitting up in her chair. Lungs did not reveal any wheezing. The heart examination revealed irregular heart sounds without gallops. The PMI is slightly displaced inferiorly and laterally. There is no rub. I could not appreciate any murmurs. Abdomen is soft. Extremities reveal only minimal ankle edema. Neurological examination grossly is negative for focal deficit. LABORATORIES: CBC done today revealed a WBC of 21.2, hemoglobin 9.8, hematocrit 31.7 and platelets 470,000. Her BUN and creatinine on 10/08/2019 was 51 and 1.94, respectively. A chest CT was done today and revealed a left hemithorax with complete resorption of pleural effusion with a small anterior left pneumothorax. There was minimal subcutaneous emphysema around the insertion of the chest tube. Moderate pleural effusion noted on the right side. Chest x-ray on 10/19/2019 did not reveal any manifestation of heart failure. Abdominal/pelvic CT done today revealed no acute disease process. There was mild to moderate subcutaneous edema. Ultrasound of the right upper extremity on 10/16/2019 revealed an occlusive thrombus in the basilic vein, otherwise unremarkable. IMPRESSION: 1. 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 The patient seems to be stable on the amiodarone and will continue same. As mentioned above, she has not been able to receive the beta-hank because of bradycardia. She can be monitored on the amiodarone for now. She might benefit from a permanent pacemaker at one point, she has underlying left ventricular systolic dysfunction and she will benefit from a beta-hank. She is on Eliquis for prevention of thromboembolic events and there is no bleeding. 2. Hypertension. Under control. 3. Left ventricular systolic dysfunction. Currently on hydralazine and long acting nitrates. She is not on beta-hank at this present time because of marked bradycardia and her underlying tachy-darwin arrhythmia and recent sinus pause. She is not a candidate at this present time for GIFTY inhibitor or ARB, or Entresto in view of her underlying CAD. I will monitor her along with you. 4. Pneumonia. This is being addressed. This was associated with sepsis, pleural and pericardial effusion. She had pericardial window for her pericardial effusion on 10/13/2019. 5. Diabetes mellitus. This is being addressed. 6. History of arthritis with rheumatoid arthritis. 7. Status post acute kidney injury. Stable. It was a pleasure to participate the care of Mrs. Cheryl More for her underlying cardiac condition. I will continue to monitor along with you. Please do not hesitate to call if any questions. NIGEL
[2019-10-20] MEDS: ACETYLCYSTEINE 20% 4 ML VIAL (200MG/ML) INH SCH ×2 (08:18→19:29)
[2019-10-20] MEDS: DOXYCYCLINE HYCLATE 100 MG in D5W MINI-BAG PLUS 100 ML IV SCH (08:49)
[2019-10-20] MEDS: METOPROLOL TART 12.5 MG PER 1/2 TAB PO SCH ×2 (08:50→20:18)
[2019-10-20] MEDS: DOCUSATE SODIUM 100 MG CAP PO SCH ×2 (08:50→20:18)
[2019-10-20] MEDS: HumaLOG INSULIN (NovoLOG) PER UNIT SC SCH ×4 (08:50→20:41)
[2019-10-20] MEDS: MOM 30ML SUSPENSION UDC PO SCH (08:51)
[2019-10-20] MEDS: TOBRADEX OPHTH SUSP 2.5 ML OU SCH ×3 (08:51→20:17)
[2019-10-20] MEDS: AMIODARONE 200 MG TAB (PACERONE) PO SCH ×2 (08:51→20:19)
[2019-10-20] MEDS: APIXABAN 5 MG TAB (ELIQUIS) PO SCH ×2 (09:00→20:18)
--- NOTE | 2019-10-20 09:52 | REP ---
Clinical: Pneumonia. Pericardial effusion. Technique: PA and lateral. Comparison: 10/19/2019. Findings: Bilateral perihilar and lower lobe opacities are relatively unchanged again suggesting elements of air space disease and layering pleural effusions including small amount of suspected trapped fluid in the right minor fissure. Stable cardiomegaly. No obvious pneumothorax. Skeletal structures intact. Impression: No significant change from prior examination with continued lower lobe opacities suggesting consolidations and layering effusions including small amount of trapped fluid in the right minor fissure. Electronically Signed by Sabino Cardenas MD 10/20/2019 08:17 A
[2019-10-20] MEDS: PERCOCET 5MG/325MG TAB PO PRN ×2 (10:18→18:54)
[2019-10-20] MEDS: SIMETHICONE 80 MG CHEW TAB PO PRN ×2 (12:03→17:23)
--- NOTE | 2019-10-20 13:31 | IPNPDOC ---
Text Note Date of Service The patient was seen on 10/20/19. NOTE HOSPITALIST NOTE S: Pt examined at bedside in ICU. Has no new complaints today. Working with PT and OT. Afebrile, vital with persistent leukocytosis. Renal function is worsening, however she continues to make urine. Maintaining in sinus bradycardia, tolerating by mouth intake with complaint of feeling gassy. No ches t pain, shortness of breath, blood loss. PE: Vitals: see below General: NAD, sitting up comfortably in chair, A&Ox3, appropriately conversant HEENT: NCAT, EOMI, PEERL, anicteric sclera, moist mucous membranes, neck supple with mild JVD CV: Bradycardic with regular rhythm. No clicks or rubs. 1+ LE edema b/l, 3/6 pansystolic murmur RESP: Equal chest rise bilaterally. Bilateral crackles, L>R. Upper lung alves clear. Chest tube in place on the left with bloody drainage turning clear ABD: soft, NT, ND. Normoactive sounds EXTREMITIES: 2+ radial pulses b/l MSK: 5/5 throughout, good cd mixer helper strength NEURO: able to appropriately follow commands, answers appropriately, no focal deficit, motor & sensory intact A/P: This is 78-year-old female brought in by family for altered mental status after she sustained a mechanical fall. She was found to be septic on admission. During her initial workup, she was found to have questionable left lower lobe infiltrate, bilateral pleural effusions, large cardiomegaly, and what appears new onset A. fib. She was taken urgently to the OR for pericardial window, and postoperatively went into RVR in PACU, uncontrolled with B-hank attempt, and went to asystole after unsuccessful cardioversion and extubation was attempted. [see addendum to 10/13 Hospitalist note for code details.] Since then, she has been extubated and tolerating nasal cannula with recurrent effusions. 1. Acute hypoxemic respiratory failure S/P cardiac arrest with resuscitation - Continues to require supplement oxygen. Wean off as tolerated - s/p extubation 10/15 - Likely multifactorial: sepsis from left lower lobe pneumonia vs large pericardial effusion vs acutely decompensated CHF, possibly 2/2 metabolic acidosis - PulmCrit following, appreciate input - Has recurrent pleural effusions with left-sided chest tube still in place actively draining. Thoracic surgery following, appreciate input 2. Acutely decompensated systolic and diastolic CHF - continues to be hypervolemic on exam, hemodynamically stable - Echo includes: EF 35%, grade 2 diastolic dysfunction, diffuse hypokinesis, mod-large pericardial effusion with some tamponade but no collapse, dilated IVC - Will likely benefit from diuresis, however renal function worsening despite daily doses of Lasix - Repeat BNP significantly elevated. Repeat echo pending - strict I/O, daily wt, 2L fluid restriction 3. Worsening KAELYN on CKD 3 - likely 2/2 worsening hypervolemic status with large rise in BNP & increasing weight - initially improved with diuresis, however did not respond much to Lasix last few days - hold nephrotoxins -Nephrology consulted, appreciate input 4. Pericardial effusion with impending tamponade, exudative - s/p pericardial window 10/13 & removal of pericardial & right pleural tubes - Etiology unclear, suspicion for inflammatory vs infectious cause - RF/BURKE negative. Cytology negative for malignancy - Continue Doxy & Zosyn until full fluid analysis result 5. New onset A. fib RVR - Likely 2/2 acutely ill state, possibly induced by pericardial effusion vs new onset CHF - Maintaining in sinus bradycardia 50s-60s, asymptomatic - Appreciate Cardiology input: Amiodarone & Lopressor on board. Anticoagulation with Eliquis - Due to bradycardia, has not received Lopressor doses. Monitor tele 6. RUE superficial thrombosis - Doppler: Occlusive thrombus through the basilic vein. - on Eliquis also for Afib 7. Persistent leukocytosis - Leukocytosis without much improvement although CRP trending down - Clinically improving, afebrile, hemodynamic stable - On broad antibiotics. Cultures negative thus far - Peripheral smear suggests acute inflammatory/infectious/reactive process, follow-up after she recovers from acute illness RA: on Remicaide infusions HTN: controlled DM: fs & hypoglycemic protocol in place DVT ppx: eliquis CODE: DNR/DNI DISPO: pending clinical improvement, Nephro eval. PT/OT, and possible rehab after. VS,Fishbone, I+O VS, Fishbone, I+O Laboratory Tests 10/20/19 04:55 Vital Signs Date Time Temp Pulse Resp B/P (MAP) Pulse Ox O2 Delivery O2 Flow Rate FiO2 10/20/19 12:07 142/60 10/20/19 12:00 97.8 49 26 94 Nasal Cannula 2.0 10/15/19 14:00 50 I&O- Last 24 Hours up to 6 AM 10/20/19 06:00 Intake Total 1480 ml Output Total 600 ml Balance 880 ml GME ATTESTATION GME ATTESTATION My faculty preceptor for this patient encounter was physically present during the encounter and was fully available. All aspects of the patient interview, examination, medical decision making process, and medical care plan development were reviewed and approved by the faculty preceptor. The faculty preceptor is aware and concurs with the plan as stated in the body of this note and will attest to such by his/her cosignature. FRANCOISE WINSTON DO Oct 20, 2019 13:31
--- NOTE | 2019-10-20 14:32 | IPN ---
DATE: 10/20/2019 Ms. More is complaining of not feeling so well today. The diffuse abdominal pain is gone, but she complains of pain in the epigastrium in and around the wound. Upon palpation of the wound, there is no tenderness, but she feels the pain deep down. We have taught her how to splint herself to cough. Nonetheless, she has plateaued and, in fact, getting a little bit worse with increasing renal insufficiency. Her vital signs show a maximum temperature (Tmax) of 98.9 with a heart rate that ranges between 44 and 51 in a sinus rhythm. Respiratory rate is 20-28 without the use of accessory muscles, and she is 94% saturated on 2 liters nasal cannula. Blood pressures are ranging between 160/63 to 138/63. Her intake and output over the last 24 hours has been recorded as 1550 in and 688 out for a positivity of 862 mL. She has had incontinent voids and bowel movements however. She did have two bowel movements yesterday. Her Peck is discontinued and, therefore, her urine output has been recorded as 0, which I do not quite believe. She has put out 288 from the chest tube, and there is no air leak. She has taken in 1200 mL of by mouth intake. PHYSICAL EXAMINATION: She has coarse rhonchi during inspiration and expiration on both sides. Percussion note is full to the diaphragm, as far as I can tell from her morbid obesity. CARDIAC EXAM: Is without murmurs, clicks, gallops, or rubs. I cannot feel her point of maximum impulse (PMI). S1, S2 are normal. In particular, there is no pericardial friction rub. Abdomen is soft, nontender. Bowel sounds are positive. There is no hepatomegaly that I can feel through her morbid obesity. There is no costovertebral angle (CVA) tenderness. Her extremities now show 2+ pretibial edema, which is increasing. There is no calf tenderness. The differential swelling between the right and left has resolved; however, she does have edema of the upper extremities additionally, equally on both sides. Her skin is warm, dry, and perfused without cyanosis or mottling, including that of the nail beds and knees. Neck is supple. There is no jugular venous distention. No subcutaneous emphysema. Trachea is midline. Mouth shows her mucous membranes to be pink and moist. Lips and commissures without lesions. There is no thrush. Eyes show her pupils to be equal and reactive. Extraocular motion intact. Sclerae anicteric. Neuro shows II through XII intact with gross motor and gross sensation intact. Gait is not tested. Psychiatric shows her to be awake and alert, oriented times three with appropriate mood and affect and conversational. Her white count has a persistent elevation now up to 22.8. Hemoglobin and hematocrit are 9.4 and 30.4, respectively, with a platelet count of 495. There is no differential on her. Her electrolytes show a marginally low sodium of 134, but with a BUN/creatinine which has markedly risen to 68 and 3.56 from 51 and 1.94 yesterday. Her glucose is 192. Notably, her C-reactive protein has decreased to 5.8 from 10.3. Calcium is 8.1. Dr. Bassett from pathology called me and sees a rare cluster of atypical cells in the pleural fluid. She has requested more fluid, and I will send her the pleural collection over the last 2 days. Her chest x-ray today is now done PA/lateral. Considering the difference in technique, it looks to be essentially unchanged. I still see air bronchograms in the left lower hilum. There is a little bit more of an infiltrative processs in the right lower lobe medially. The left diaphragm is still obscured. Right diaphragm shows a sharp costophrenic angle. Her lateral film shows some infiltrate inferiorly. The bowel gas pattern has improved with less gas in the large bowel. I did obtain an echocardiogram on her today. Her systolic function looks to be much improved, and there is no pericardial effusion left. IMPRESSION: 1. Pericardial effusion with tamponade, relieved with a tube pericardiostomy and pericardial window, postoperative day #7. 2. Morbid obesity. 3. Status post asystole and tamponade and metabolic acidosis, resolved. 4. Diabetes. 5. Rheumatoid arthritis. 6. Hypertension. 7. Congestive heart failure (CHF). 8. Pulmonary hypertension. 9. Left pleural effusion, relieved with a chest tube. 10. Right heart failure, but now with a left ventricular ejection fraction improving. 11. Upper extremity deep vein thrombosis treated with Eliquis. 12. Infiltrative process of left lower lobe, possibly pneumonia, stable. 13. Increasing renal insufficiency. PLAN/DISCUSSION: It is really unclear in my mind what is going on with Ms. More. She has a persistent white count. There is no fever, and all her bacteriology has been negative. Her renal function is continuing to worsen. She is not on any angiotensin-converting enzyme (GIFTY) inhibitors that would affect her renal function. I will send off more pleural fluid for cytology and cell block. The atypical cells that are present are staining weakly for TTF-1. It is not convincing enough to us to call them malignancy, however.
[2019-10-20] MEDS ORDERED: LIDOCAINE 1% MDV 20ML VIAL As Ordered ONE (15:22)
[2019-10-20] MEDS ORDERED: SODIUM CHLORIDE 0.9% INJ 10 ML SYR IV PRN (16:45)
[2019-10-20] MEDS: SODIUM CHLORIDE 0.9% INJ 10 ML SYR IV SCH (17:19)
[2019-10-20] MEDS: RAMELTEON 8 MG TAB (ROZEREM) PO SCH (20:18)
[2019-10-20] MEDS: DOXYCYCLINE HYCLATE 100 MG TAB PO SCH (20:31)
[2019-10-21] VITALS (22 sets, daily range): BP systolic 86–168; BP diastolic 47–74; O2SAT 97
[2019-10-21] MEDS: PIPERACILLIN/TAZOBACTAM SOD 3.375 GM in D5W MINI-BAG PLUS 50 ML IV SCH ×4 (02:05→21:00)
[2019-10-21] MEDS: PERCOCET 5MG/325MG TAB PO PRN ×2 (02:05→08:25)
[2019-10-21] MEDS: SODIUM CHLORIDE HYPERTONIC 3% 15ML NEB SOL INH SCH ×5 (03:56→21:40)
[2019-10-21] MEDS: LEVALBUTEROL 1.25 MG/0.5 ML CONCENTRATE NEB NEB PRN ×2 (03:56→07:39)
[2019-10-21 04:36] LABS: C REACTIVE PROTEIN QUANTITATIV 4.58 MG/DL (0.00-0.30); CALCIUM LEVEL 7.6 MG/DL (8.8-10.2); CREATININE FOR GFR 4.65 MG/DL (0.55-1.30); GLOMERULAR FILTRATION RATE 9.7 (>39); POTASSIUM SERUM 4.4 MEQ/L (3.5-5.1)
[2019-10-21] MEDS: SODIUM CHLORIDE 0.9% INJ 10 ML SYR IV SCH ×2 (05:26→17:57)
[2019-10-21] MEDS: **hydrALAZINE HCL** 25 MG TAB PO SCH ×3 (05:27→21:02)
[2019-10-21] MEDS: ISOSORBIDE DIN. (ISORDIL) 20 MG TAB PO SCH ×3 (06:12→17:00)
--- NOTE | 2019-10-21 07:08 | IPN ---
DATE: 10/20/2019 Mrs. Cheryl More was seen earlier this today. She was sitting in a chair in her room in no acute distress at rest. She denies any chest pain, shortness of breath at rest, and there is no report of palpitations. She has been in normal sinus rhythm. PHYSICAL EXAMINATION: On physical examination, the patient is alert and oriented, in no acute distress at rest and her vital signs earlier on revealed a blood pressure of 128/60 with a pulse of 50, respirations 18 and her maximum temperature was 97.1 degrees Fahrenheit with an oxygen saturation of 94% on 2 liters nasal cannula. Examination of the head atraumatic. Neck is supple and no jugular venous distention (JVD) appreciated. The lungs did not reveal any wheezing, but decreased breath sounds on the bases. The heart examination revealed a regular heart sounds without gallops. The point of maximal impulse (PMI) is slightly displaced inferiorly and laterally. There is no rub. Abdomen is unremarkable. Extremities revealed trace bilateral lower leg/ankle edema. Neurological examination is negative for focal deficit. LABORATORIES: BMP done today revealed a sodium of 134, potassium 4.3, chloride 103, CO2 26, BUN 68, creatinine 3.56, GFR 13.3, fasting glucose 162 and calcium 8.1. Serum proBNP today is 12,545. CBC revealed a WBC of 22.8, hemoglobin 9.4, hematocrit 30.4 and platelets 495,000. Chest x-ray revealed continued lower lobe opacities suggesting consolidations and effusion, particularly on the right side. IMPRESSION: 1. Atrial fibrillation, paroxysmal in nature and currently in normal sinus rhythm. 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 Currently on amiodarone and will continue the same. She will need to be monitored. We have not been able to give her any beta-hank since 10/07/2019 and she can be monitored. She is currently on Eliquis for prevention of thromboembolic events, there is no report of bleeding. 2. Hypertension, under control. 3. Left ventricular systolic dysfunction. Currently on hydralazine and long-acting nitrate. She is not a candidate for GIFTY inhibitor or ARB, or Entresto in view of her underlying deteriorating chronic kidney disease (CKD). She is being monitored by nephrology. 4. Pneumonia. This is being addressed. This was associated with sepsis, pleural and pericardial effusion. 5. Diabetes mellitus. This is also being addressed. 6. Arthritis with rheumatoid arthritis. 7. Acute kidney injury. Kidney function seems to be deteriorating. Currently not on diuretics, she had received one dose yesterday in the evening. She has not been on GIFTY inhibitor or ARB, or Entresto. It was a pleasure to participate in the care of Mrs. Cheryl More for her underlying cardiac condition. We will monitor along with you for her underlying cardiac condition. She appears to be stable at this present time, but it seems that she continues to have a high WBC with some pleural effusion. Her kidney function also is deteriorating. MTDD
[2019-10-21] MEDS: ACETYLCYSTEINE 20% 4 ML VIAL (200MG/ML) INH SCH ×2 (07:39→21:39)
--- NOTE | 2019-10-21 08:16 | ECHO ---
DATE OF PROCEDURE: 10/20/2019 DATE OF : 1940 AGE: 78 REFERRING PROVIDER: Dr. Jose Montes PATIENT LOCATION: Room 3207 2-D MEASUREMENTS: IVS: 1.2 cm LV: 4.1 cm LVPW: 1.2 cm LA: 4.1 cm Aorta: 2.7 cm IVC: 2.2 cm DOPPLER MEASUREMENTS: Peak velocity across the aortic valve: 1.7 m/s Peak velocity across the LVOT: 0.61 m/s Mitral E: 1.1 Mitral: 0.7 Ratio: 1.6 Maximum tricuspid valve velocity: 3.8 m/s 2-D COMMENTS: 1. Technically limited study due to poor acoustic window. 2. The left ventricular size is normal with a subjectively mildly increased left ventricular wall thickness. Left ventricular systolic function appeared to be depressed. The anterior septum, the basal and the midportion seems to be markedly hypokinetic. The estimated global left ventricular systolic ejection fraction is 35-40%. 3. Mildly enlarged left atrium. The right atrium and the right ventricle appeared to be minimally enlarged in limited views. 4. The atrial septum appeared to be normal without evidence of defect or shunt. 5. Normal aortic root. 6. Only trace pericardial effusion noted. 7. Mildly calcified aortic valve with minimally restricted leaflet motion. Mildly calcified mitral annulus with normal anterior mitral valve leaflet motion. Normal tricuspid valve. The pulmonic valve and proximal pulmonary artery branches were not well visualized. 8. The inferior vena cava was mildly enlarged, central venous pressure might be elevated. DOPPLER: It detects trace mitral regurgitation, mild to moderate tricuspid regurgitation. The calculated pulmonary artery systolic pressure varies between 50-60 mmHg. IMPRESSION: 1. Moderate global left ventricular systolic dysfunction with regional wall motion abnormalities that may represent underlying CAD. 2. Aortic valve sclerosis with trivial aortic stenosis, but no aortic regurgitation. 3. Mitral annulus calcification with trace mitral regurgitation, but no mitral stenosis. 4. Mild to moderate tricuspid regurgitation with moderately severe pulmonary hypertension and dilated right heart chambers. 5. Trace pericardial effusion was noted. 6. The findings are consistent with elevated central venous pressure, the inferior vena cava was mildly enlarged. 7. The study was technically limited due to poor acoustic window. [facility]
[2019-10-21] MEDS: MOM 30ML SUSPENSION UDC PO SCH (08:19)
[2019-10-21] MEDS: DOCUSATE SODIUM 100 MG CAP PO SCH ×2 (08:19→20:05)
[2019-10-21] MEDS: HumaLOG INSULIN (NovoLOG) PER UNIT SC SCH ×4 (08:19→21:00)
[2019-10-21] MEDS: APIXABAN 5 MG TAB (ELIQUIS) PO SCH (08:20)
[2019-10-21] MEDS: AMIODARONE 200 MG TAB (PACERONE) PO SCH (08:25)
[2019-10-21] MEDS: METOPROLOL TART 12.5 MG PER 1/2 TAB PO SCH ×2 (08:25→20:04)
[2019-10-21] MEDS: TOBRADEX OPHTH SUSP 2.5 ML OU SCH (08:26)
[2019-10-21] MEDS: DOXYCYCLINE HYCLATE 100 MG TAB PO SCH ×2 (08:32→20:55)
--- NOTE | 2019-10-21 08:34 | REP ---
The clinical: Follow up pericardial effusion. Technique: PA and lateral. Comparison: 10/20/2019. Findings: Left basilar chest tube in stable position. Left PICC line with tip in the SVC. Bilateral lower lobe opacities are similar to prior examination and suggest residual layering effusion and bibasilar consolidation/atelectasis. Small amount of trapped fluid in the minor fissure is again noted. No pneumothorax. Mediastinum and cardiac silhouette are similar to prior examination. Impression: 1. Continued lower lobe opacities similar to prior examination. Electronically Signed by Sabino Cardenas MD 10/21/2019 08:26 A
[2019-10-21 09:36] LABS: BILIRUBIN,DIRECT 0.3 MG/DL (0.0-0.2); BILIRUBIN,TOTAL 0.6 MG/DL (0.2-1.0); HEMATOCRIT 31.3 % (36.0-47.0); HEMOGLOBIN 9.6 g/dl (12.0-15.5); MEAN CORPUSCULAR HEMOGLOBIN 26.7 pg (27.0-33.0); MEAN CORPUSCULAR HGB CONC 30.7 g/dl (32.0-36.5); MEAN CORPUSCULAR VOLUME 87.2 fl (80.0-96.0); PLATELET COUNT, AUTOMATED 540 10^3/uL (150-450); RED BLOOD COUNT 3.59 10^6/uL (4.00-5.40); TOTAL PROTEIN 6.6 GM/DL (6.4-8.2); WHITE BLOOD COUNT 24.1 10^3/uL (4.0-10.0)
[2019-10-21 09:43] LABS: HEMOGLOBIN A1c 8.1 %
[2019-10-21 10:02] LABS: BASO # 0.1 10^3/uL (0.0-0.2); BASO % 0.5 % (0.0-1.0); EOS # 0.3 10^3/uL (0.0-0.5); EOS % 1.3 % (0.0-3.0); LYMPH # 0.9 10^3/uL (1.5-5.0); LYMPH % 3.8 % (24.0-44.0); MONO # 1.4 10^3/uL (0.0-0.8); MONO % 5.6 % (0.0-5.0); NEUTROPHILS # 21.3 10^3/uL (1.5-8.5); NEUTROPHILS % 88.1 % (36.0-66.0)
--- NOTE | 2019-10-21 10:35 | REP ---
PICC line insertion under ultrasound guidance. The procedure was performed by MAGI Barbosa, under the direct supervision of Dr. Barboza. The risks and benefits of the procedure were explained to the patient and informed consent was obtained both verbally and written. Directly prior to the start of the procedure, a formal timeout was completed in the procedure room. The left basilic vein was localized using ultrasound guidance. The skin was prepped and draped in the sterile fashion. 1 ml 1% lidocaine 10 mg/ml was used as a local anesthetic. Using ultrasound guidance the left basilic vein was cannulated and a 0.018 guidewire was inserted and advanced to the SVC using fluoroscopic guidance. The needle was removed and a 5.5 [place] dilator and peel-away sheath was inserted over the guidewire. A 5.5 [place] double lumen catheter was cut to the length of 40 cm. The dilator was removed and the catheter was inserted over the guide wire with the tip ending in the right atrium. The peel-away sheath was removed and the catheter was flushed with heparinized saline as per hospital protocol. The catheter was affixed to the skin and a sterile dressing was applied. The patient tolerated the procedure well and there were no immediate complications. 0.1 minutes of fluoroscopy time was utilized for this procedure. Some fluoroscopic images are performed with last image hold technology. These images require no additional radiation. Reviewed by MAGI Martinez 10/20/2019 05:15 P Electronically Signed by Nicolas Barboza MD 10/21/2019 10:27 A
[2019-10-21 10:47] LABS: ABG BASE EXCESS -3.8 (-2.0-2.0); ABG HCO3 24.4 MEQ/L (22.0-26.0); ABG O2 SATURATION 95.2 % (95.0-99.0); ABG PARTIAL PRESSURE O2 85.2 mmHg (75.0-100.0); ABG STANDARD HCO3 21.3 MEQ/L (22.0-26.0); ABG TOTAL CO2 26.2 MEQ/L (23.0-31.0)
[2019-10-21 10:51] LABS: ABG pH (ARTERIAL) 7.227 UNITS (7.350-7.450)
[2019-10-21 11:34] LABS: SODIUM,RANDOM URINE 27 MEQ/L; UREA NITROGEN RANDOM URINE 180 MG/DL
[2019-10-21 11:38] LABS: MAGNESIUM LEVEL 2.3 MG/DL (1.8-2.4)
[2019-10-21] MEDS ORDERED: propofoL 1,000 MG in IV 1 EA IV SCH (11:45)
[2019-10-21] MEDS ORDERED: FUROSEMIDE injection 250 MG in D5W 225 ML IV SCH ×3 (14:00→19:00)
[2019-10-21 14:24] LABS: CK-MB VALUE MASS 2.2 NG/ML (<3.6); MB/CK RELATIVE INDEX 8.46 (< OR =4); TROPONIN I 0.04 NG/ML (< 0.10)
--- NOTE | 2019-10-21 15:39 | REP ---
Clinical: Acute renal insufficiency. Technique: Real time bowens scale ultrasound examination using curved array transducer. Findings: The bilateral kidneys are normal in reniform shape and appear mildly hyperechoic with increased central sinus fat and renovascular calcifications consistent with chronic medical renal disease. No hydronephrosis, nephrolithiasis, or renal mass lesion. Right kidney measures 10.2 x 5.6 x 5.4 cm and includes 1.3 cm simple mid pole cyst. Left kidney measures 9.5 x 4.6 x 4.8 cm. Impression: Evidence for chronic medical renal disease. No hydronephrosis. Electronically Signed by Sabino Cardenas MD 10/21/2019 03:30 P
[2019-10-21 16:02] LABS: ABG BASE EXCESS -4.1 (-2.0-2.0); ABG HCO3 24.1 MEQ/L (22.0-26.0); ABG O2 SATURATION 93.6 % (95.0-99.0); ABG PARTIAL PRESSURE O2 78.1 mmHg (75.0-100.0)
[2019-10-21 16:03] LABS: ABG pH (ARTERIAL) 7.214 UNITS (7.350-7.450)
[2019-10-21 16:05] LABS: ABG PARTIAL PRESSURE CO2 61.1 mmHg (35.0-45.0)
[2019-10-21] MEDS: NYSTATIN CREAM 15 GM EXT SCH ×2 (16:29→21:01)
[2019-10-21] MEDS ORDERED: FUROSEMIDE 100 MG/10 ML VIAL (J1940) IV ONE (18:15)
[2019-10-21] MEDS: FLUCONAZOLE 100 MG TAB PO SCH (18:28)
[2019-10-21] MEDS ORDERED: ATROPINE SULF 1MG/10ML SYRINGE (J0461) As Ordered ONE (19:51)
[2019-10-21] MEDS ORDERED: DOBUTamine 500 MG/250 ML BAG IN D5W (2,000 MCG/ML) (J1250) As Ordered ONE (20:07)
[2019-10-21] MEDS ORDERED: DOBUTamine HCL 500,000 MCG in IV 1 EA IV SCH ×4 (20:15)
[2019-10-21 20:23] LABS: CK-MB VALUE MASS 2.3 NG/ML (<3.6); MB/CK RELATIVE INDEX 11.5 (< OR =4); TROPONIN I 0.02 NG/ML (< 0.10)
[2019-10-21] MEDS: RAMELTEON 8 MG TAB (ROZEREM) PO SCH (20:55)
[2019-10-21] MEDS: NYSTATIN 100,000 UNITS/GM TOPICAL PWD 15 GM TOP PRN (21:00)
--- NOTE | 2019-10-21 21:00 | IPNPDOC ---
Date Seen The patient was seen on 10/21/19. Progress Note SUBJECTIVE: She seen and examined. No acute events overnight. Initially evaluated this morning during breakfast. Patient was sitting in bedside chair and tolerating her breakfast. She complains of upper back pain but denies other discomfort at this time. She denies chest pain shortness of breath abdominal pain nausea vomiting. She reports multiple episodes of voiding which was con firmed by the nurse. Patient reevaluated in the morning after telemetry alarm indicating asystole. Immediately presented bedside which patient was agonally breathing and desaturating into the the 70s. Patient asystolic on the monitor with no palpable pulse in appearing acutely ill. CODE STATUS was verified with arm band, and nurse indicating patient is DNR/DNI. Patient's rhythm spontaneously improved after approximately a 1 minute cardiac pause. Following that she was briefly normal sinus rhythm but later returned to bradycardia sinus rhythm in the 40s to 50s where patient had been throughout the morning. Patient's mentation improved and was lethargic but arousable. ABG was done after the event showing hypercapnia with PCO2 in the 60s. Per nurse, just prior to the event patient was doing fine without complaints. They're attempting to reposition the patient and she was rolled onto her right side at which point she became unresponsive. Patient with multiple episodes of asystolic cardiac rhythm later in the evening with the longest pause ~2minutes. Patient awake and responsive when heart rate improved. Per RN, attempt made for transcutaneous pacing by responding resident without successful capture. Given code status, no plans for aggressive measures such as transcutaneous pacing at this time. Family updated on poor progrnosis. Brief Hospital Course: Patient is a 78 year old female who presented to the ED on 10/13/2019 after a mechanical fall. On admission, patient was noted to have a large pericardial effusion with signs of tamponade and was taken urgently to the OR for pericardial window. Post-operative, patient in Afib with RVR and was given beta- hank and cardioversion. Shortly after, patient in asystole requiring chest compressions. (please sleep code sheet for details). Patient recovered following arrest and was able to be extubated without any noteable changes in mentation. On 10/21, patient an additional 1 minute asystolic pause that spontaneously resolved. During course of stay, patient with persistent diffuse edema and bilateral pleural effusion s/p chest tube placement on the left. Patient with decreased urine output and worsening kidney function throughout hospital stay. She was started on Lasix gtt and nephrology consulted. Patient also with persistent WBC. Repeat UA with increased WBC and yeast noted. Diflucan started. OBJECTIVE PHYSICAL EXAMINATION: VITAL SIGNS: Please see below. GENERAL: Alert and oriented in no acute distress HEENT: Normocephalic atraumatic CARDIOVASCULAR: Bradycardia with heart rate in the 40s, diffuse edema of upper and lower extremities RESPIRATORY: [Clear to auscultation bilaterally]. ABDOMINAL: [Soft, nontender, nondistended, positive bowel sounds] EXTREMITIES: [Normal range of motion and strength of all 4 extremities] NEUROLOGICAL: [Alert and oriented 3 without focal deficits noted] SKIN: Warm and dry LABORATORY DATA, IMAGING STUDIES, MICROBIOLOGY: Please see below. ASSESSMENT AND PLAN: # Asystolic cardiac arrest with recurrent episodes of cardiac pause, no with sinus bradycardiac - Likely related to a sick sinus syndrome, will need to consider pacemaker placement prior to discharge - Code status addressed with patient and son at bedside who confirm DNR status - Repeat EKG in the morning, monitor troponins - Stop amiodarone - Cardiology following # Acute hypoxemic and hypercapnic respiratory failure S/P cardiac arrest/pause - s/p extubation 10/15 - BiPAP PRN for increased lethargy - Chest tube in place for bilateral pleural effusion, plan for drainage of right pleural effusion tomorrow. Hold Eliquis for procedure - Possible underlying pneumonia given bronchograms on CT, will continue antib iotics with Zosyn and Doxy for now # KAELYN on CKD 3, worsening - Unknown etiology, but suspect prerenal etiology/hypoperfusion and UTI - Lactate is normal - Avoid nephrotoxic agents - Await urine cultures, continue antibiotics, start diflucan for suspected yeast - Nephrology following #UTI - Repeat UA with WBC and leukocyte esterase and yeast noted - Will continue Zosyn and Doxycycline pending cultures - Will start diflucan given yeast in urine # Acutely decompensated systolic and diastolic CHF - Lasix gtt - Strict I/O, daily wt, 2L fluid restriction #Persistent leukocytosis - Suspect a leukymoid reaction with slight increase in WBC and neutrophil count - Will add Diflucan #Bilateral Pleural Effusion - Left pleural effusion improved with chest tube in place, repeat fluid studies pending - Plan for drainage of right pleural effusion tomorrow. Hold Eliquis #. Pericardial effusion with impending tamponade, exudative - s/p pericardial window 10/13 - Etiology unclear, but given history may be related to auto-immune process, Cytology negative for malignancy - CT surgery following #Diabetes mellitus, type 2 - Check A1C - Continue sliding scale insulin - Patient poor PO intake today, will increase insulin if diet improves and glucose continues to be elevated #Candidasis - Nystatin powder and cream to affect skin folds #Pulmonary hypertesnion - Strive for negative fluid balance #Pneumonia - Of consideration, but considered less likely - Will repeat procalcitonin #Right upper extremity DVT - Hold Eliquis for procedure # Hypertension - Controlled at this time, continue hydralazine #RA - On remicade at home #Morbid Obesity - Will need education with clinical improvement Resolved Hospital Problems: Afib with RVR Metabolic encephalopathy Diet: Renal diet, however, NPO while BiPAP in place DVT/GI ppx: Hold Eliquis for right chest tube, GI ppx not indicated at this time L/T/D: Peck catheter (10/21/2019) Drips: Dobutamine 5mcg/kg/min to keep HR > 55 CODE STATUS: DNR/DNI. Confirmed with patient and son today Dispo: Continue to monitor in the ICU. Patient with frequent pauses on telemetry. Overall progrnosis is poor. Discussed with cardiology, nephrology, and CT surgery. Critical Care Time: 55 minutes. Time spent immediately at bedside evaluation p atient, interpreting labs and monitoring interventions. Time excluded of all other provider critical care time and procedures [place] VS, I&O, 24H, [facility] Vital Signs/I&O Vital Signs Date Time Temp Pulse Resp B/P (MAP) Pulse Ox O2 Delivery O2 Flow Rate FiO2 10/21/19 14:00 105/55 10/21/19 12:00 98.0 47 18 96 Nasal Cannula 3.0 10/21/19 08:55 50 I&O- Last 24 Hours up to 6 AM 10/21/19 06:00 Intake Total 970 ml Output Total 545 ml Balance 425 ml Laboratory Data 24H LABS Laboratory Tests 2 10/20/19 17:03: Bedside Glucose (Misc Panel) 175H 10/20/19 20:39: Bedside Glucose (Misc Panel) 190H 10/21/19 04:00: Anion Gap 9, Glomerular Filtration Rate 9.7L, Calcium Level 7.6L, C-Reactive Protein, Quantitative 4.58H 10/21/19 08:16: Bedside Glucose (Misc Panel) 202H 10/21/19 08:46: Immature Granulocyte % (Auto) 0.7, Neutrophils (%) (Auto) 88.1H, Lymphocytes (%) (Auto) 3.8L, Monocytes (%) (Auto) 5.6H, Eosinophils (%) (Auto) 1.3, Basophils (%) (Auto) 0.5, Immature Granulocyte # (Auto) 0.2H, Neutrophils # (Auto) 21.3H, Lymphocytes # (Auto) 0.9L, Monocytes # (Auto) 1.4H, Eosinophils # (Auto) 0.3, Basophils # (Auto) 0.1, Nucleated Red Blood Cells % (auto) 0.0, Platelet Estimate , Estimated Mean Plasma Glucose 186H, Hemoglobin A1c 8.1, Lactic Acid Level 1.3, Magnesium Level 2.3, Total Bilirubin 0.6, Direct Bilirubin 0.3H, Aspartate Amino Transf (AST/SGOT) 9, Alanine Aminotransferase (ALT/SGPT) 19, Alkaline Phosphatase 64, Total Protein 6.6, Albumin 2.0L, Albumin/Globulin Ratio 0.43L 10/21/19 10:22: Urine Color LEONARD, Urine Appearance TURBIDH, Urine pH 5.0, Urine Specific [place] 1.026, Urine Protein 2+H, Urine Glucose (UA) NEGATIVE, Urine Ketones TRACEH, Urine Blood 2+H, Urine Nitrite NEGATIVE, Urine Bilirubin NEGATIVE, Urine Urobilinogen 0.2, Urine Leukocyte Esterase 3+H, Urine WBC (Auto) 107H, Urine RBC (Auto) 136H, Urine Hyaline Casts (Auto) 0, Urine Bacteria (Auto) 3+H, Urine Squamous Epithelial Cells 3, Urine Yeast-Like Cells (Auto) LARGEH, Urine Sperm (Auto) , Urine Random Creatinine 135.0, Urine Random Sodium 27, Urine Random Urea Nitrogen 180 10/21/19 10:33: Blood Gas Bicarbonate Standard 21.3L, Arterial Blood pH 7.227*L, Arterial Blood Partial Pressure CO2 60.0H, Arterial Blood Partial Pressure O2 85.2, Arterial Blood Total CO2 26.2, Arterial Blood HCO3 24.4, Arterial Blood Base Excess - 3.8L, Arterial Blood Oxygen Saturation 95.2 10/21/19 11:59: Bedside Glucose (Misc Panel) 149H 10/21/19 13:46: Lactate Dehydrogenase 202, Total Creatine Kinase 26, Creatine Kinase MB 2.2, Creatine Kinase MB Relative Index 8.46H, Troponin I 0.04 CBC/BMP Laboratory Tests 10/21/19 04:00 10/21/19 08:46 Microbiology Microbiology 10/21/19 Urine Culture, Received Pending 10/17/19 Blood Culture - Preliminary, Resulted No Growth after 72 hours. All specime... 10/17/19 Blood Culture - Preliminary, Resulted No Growth after 72 hours. All specime... 10/17/19 Gram Stain - Final, Complete 10/17/19 Body Fluid Culture - Final, Complete 10/17/19 Anaerobic Culture - Final, Complete 10/17/19 Acid Fast Stain, Received Pending 10/17/19 Mycobacterial Culture, Received Pending 10/17/19 Fungal Smear, Received Pending 10/17/19 Fungal Culture, Received Pending 10/14/19 Gram Stain - Final, Complete 10/14/19 Sputum Culture - Final, Complete 10/13/19 Acid Fast Stain, Received Pending 10/13/19 Mycobacterial Culture, Received Pending 10/13/19 Fungal Smear, Received Pending 10/13/19 Fungal Culture, Received Pending 10/13/19 Gram Stain - Final, Complete 10/13/19 Body Fluid Culture - Final, Complete 10/13/19 Anaerobic Culture - Final, Complete 10/13/19 Acid Fast Stain, Received Pending 10/13/19 Mycobacterial Culture, Received Pending 10/13/19 Fungal Smear, Received Pending 10/13/19 Fungal Culture, Received Pending 10/13/19 Gram Stain - Final, Complete 10/13/19 Anaerobic Culture - Final, Complete 10/13/19 Gram Stain - Final, Complete 10/13/19 Body Fluid Culture - Final, Complete 10/13/19 Blood Culture - Final, Complete NO GROWTH AFTER 5 DAYS SANAM ALVARENGA DO Oct 21, 2019 16:11
--- NOTE | 2019-10-21 21:01 | CR ---
DATE OF CONSULTATION: 10/21/2019 REQUESTING PHYSICIAN: Dr. Schultz CONSULTING PHYSICIAN: Dr. Leslye Zuniga REASON FOR CONSULTATION: Acute kidney injury on CKD stage III. HISTORY OF PRESENT ILLNESS: Cheryl More is previously unknown to me. History is obtained from chart review and discussion with healthcare providers. Patient is able to offer some limited amount of history. She is a 78-year-old female with a past medical history of hypertension, rheumatoid arthritis on Remicade infusions, diabetes mellitus, hypertension, fatty liver disease, ex-smoker, congestive heart failure and other comorbid conditions mentioned below. She was admitted on August 12 with altered mental status and a mechanical fall. She was found to have atrial fibrillation with rapid ventricular response (RVR), leukocytosis and acute kidney injury, pneumonia, infiltrates, effusions and pericardial effusion and acute hypoxemic respiratory failure. CT head on admission also revealed bilateral occipital lobe chronic infarcts. She had drainage of her pericardial effusion which was complicated by cardiac arrest. She was successfully resuscitated and then had multiple episodes of atrial fibrillation which is managed by cardiology. Echocardiogram revealed depressed ejection fraction of the left ventricle and dilated right heart chambers. The patient was volume overloaded and was being treated with intermittent doses of Lasix. She had fluctuating creatinine in the mid 1's up to 2. She remains in the intensive care unit with a chest tube. Her creatinine on October 18 was 1.9. She received Lasix. She had no renal panel then checked for 48 hours until October 20 and her creatinine had risen to 3.5 during that time. She also had her Peck catheter removed. She had no contrast based imaging. Review of vital signs shows no documented hypotension during that period. Nursing staff today reports that the patient has been incontinent of urine and has her bedding changed three times. Labs show deterioration of renal function with creatinine up to 4.6 and nephrology evaluation was subsequently requested. Of note this morning, the patient walked around and then when she was lateral recumbent had a documented episode of asystole. As she is DO NOT RESUSCITATE (DNR), no interventions were undertaken and the patient had spontaneous return of circulation after repositioning. PAST MEDICAL HISTORY: Hypertension, diabetes, combined systolic and diastolic congestive heart failure, right heart failure, CKD stage III, baseline creatinine around 1.0, atrial fibrillation with RVR, pericardial effusion, status post pericardial window and drainage, pleural effusions, history of cardiac arrest, A fib with RVR, osteopenia, fatty liver disease, ex-smoker. PAST SURGICAL HISTORY: Left lateral chest tube central line placement, pericardial window. ALLERGIES: NO KNOWN DRUG ALLERGIES. FAMILY HISTORY: Unable to be obtained. SOCIAL HISTORY Ex-smoker and no alcohol or drug use reported. HOME MEDICATIONS: Reviewed and include Tylenol as needed, amlodipine 5 mg by mouth daily, Lasix 20 mg by mouth daily, glimepiride 1 mg by mouth daily, Remicade infusions, quinapril 40 mg by mouth daily. REVIEW OF SYSTEMS: Limited secondary to patient's clinical condition. Constitutional: She denies fevers, chills. There is generalized fatigue. Eyes: Denies visual changes or tearing. ENT: Denies rhinorrhea or odynophagia. Cardiac: Status post cardiac arrest, status post episode of asystole this morning. Has diffuse edema of all four extremities. Respiratory: Positive for pleural effusions and supplemental oxygen requirements. Gastrointestinal: Negative for nausea, vomiting or diarrhea. Genitourinary: She is incontinent of urine. Denies dysuria. Endocrine: There is a history of diabetes and obesity. Hematologic: There is anemia, but no easy bleeding or bruising reported. Neurologic: No history of seizures. There is history of old strokes. Remainder of review of systems is negative or as per HPI. PHYSICAL EXAMINATION: Temperature 98.0, pulse 47, respiratory rate 18, blood pressure 100/55, saturating 96% on 3 liters nasal cannula. Intake yesterday was 910. Urine output was just recorded as incontinent voids. Chest tube drained 270 mL. Weight in the bed scale today is 79.6 kg which is increased from prior. General: The patient is seen lying in bed, elderly female, in mild distress. Makes eye contact. Nasal cannula is in place. There is mild jugular venous distension. Heart: Sounds are bradycardiac. There is edema present in the legs and in the upper extremities. There is symmetric air entry, fairly clear superiorly and diminished at the bases, more so on the right. There is a chest tube. Abdomen is soft and obese. There is some edema in the dependent areas and at the hip and sacrum. Genitourinary: Bladder does not appear to be distended. Neurologic: She is able to tell me her name and that she is in the hospital. She thinks the year is 2012. She recognizes her son. LABS: White count 24, hemoglobin 9.6, platelet 540, sodium 136, potassium 4.4, bicarbonate 24, BUN 77, creatinine 4.6, CRP 4.5, BNP 12,000, albumin 2.0. Urinalysis October 13, 1+ protein and 7 RBCs. Urine culture pending. Blood cultures: No growth for 72 hours times two sets. Noncontrast CT chest October 19 shows moderate right pleural effusion and near complete resolution of left pleural effusion. CT abdomen and pelvis October 19 shows moderate subcutaneous edema. No ascites. Echocardiogram October 20 shows ejection fraction 35%, some degree of dilation of the right ventricle, severe pulmonary hypertension, elevated central venous pressure. INPATIENT MEDICATIONS: Zosyn 3.375 grams every 6 hourly, Tylenol as needed, Mucomyst inhaled twice daily, apixaban 5 mg by mouth twice a day, docusate 100 mg by mouth twice a day, doxycycline 100 mg by mouth twice a day, hydralazine 37.5 mg by mouth q. 8 hourly, insulin Isordil 20 mg by mouth three times a day, Lopressor 12.5 mg by mouth twice a day, oxycodone as needed, simethicone as needed. PROBLEMS: 1. Oligoanuric acute renal failure superimposed on CKD stage IIIA, baseline creatinine around 1. Admitted on October 12 with an acute kidney injury, creatinine 1.6. Admission complicated by cardiac arrest, recurrent atrial fibrillation, sepsis with indeterminate infectious etiology, fluid overload, etc. Her renal function over the course of the admission has fluctuated with creatinine ranging from 1.3-2.0. On October 18 creatinine was 1.9 and then no renal panel was done until October 20 and creatinine climbed to 3.5. During that two day period there was no documented hypotension and there was no contrast studies, no nephrotoxic medications. Acute kidney injury is likely multifactorial and due to hemodynamic fluctuations, infection, decompensated heart failure. Echocardiogram yesterday shows EF of 35% with dilated right heart chamber and elevated central venous pressure. Her blood pressures today have been soft, systolic is around 100. She had roughly a 1-minute period of asystole this morning. I am putting her on a gentle Lasix drip at 5 mg an hour and I have asked nursing staff to get an external urinary catheter so we can quantify her urine output. There is no urgent indication for dialysis at present, but she may progress to the same. We will monitor closely for developing dialysis needs. 2. Decompensated combined heart failure. Echocardiogram October 20 shows depressed ejection fraction of 35% with dilated right heart chamber and elevated central venous pressure. CT abdomen and pelvis done 2 days ago shows moderate subcutaneous edema. The patient also has moderate right-sided pleural effusion and both upper and lower extremity edema. She is clinically volume overloaded. Given that her blood pressures are somewhat soft and given her period of 1 minute period of asystole this morning I am going to put her on a Lasix drip at 5 mg an hour rather than Lasix bolus 3. Atrial fibrillation. She is rate controlled. Actually heart rate is in the 40s. Negative chronotropic medications managed per cardiology. Blood pressures have been fairly acceptable. Suggest Eliquis dose be decreased to 2.5 mg twice a day in view of renal failure. 4. Persistent leukocytosis. She is on broad-spectrum antibiotics, should be renally dosed for GFR of 15. CRP is down trending. She remains afebrile. UA and urine culture pending. 5. Plan of care was discussed with gas shovel operator and with patient and her son at the bedside. Thank you for involving me in the care of Mrs. More. I will be happy to follow her along with you. NIGEL
[2019-10-21] MEDS: **NOTE PATIENT COMMENT** MISC XX SCH (21:02)
[2019-10-22] VITALS (31 sets, daily range): BP systolic 88–132; BP diastolic 43–64; O2SAT 95
[2019-10-22] MEDS: SODIUM CHLORIDE HYPERTONIC 3% 15ML NEB SOL INH SCH ×7 (00:20→23:29)
[2019-10-22] MEDS: PIPERACILLIN/TAZOBACTAM SOD 3.375 GM in D5W MINI-BAG PLUS 50 ML IV SCH ×4 (03:08→21:35)
[2019-10-22 04:27] LABS: BASO % 0.2 % (0.0-1.0); EOS % 0.1 % (0.0-3.0); HEMATOCRIT 29.1 % (36.0-47.0); LYMPH # 0.8 10^3/uL (1.5-5.0); LYMPH % 3.6 % (24.0-44.0); MEAN CORPUSCULAR HEMOGLOBIN 27.6 pg (27.0-33.0); MEAN CORPUSCULAR HGB CONC 30.9 g/dl (32.0-36.5); MEAN CORPUSCULAR VOLUME 89.3 fl (80.0-96.0); MONO # 1.4 10^3/uL (0.0-0.8); MONO % 6.3 % (0.0-5.0); NEUTROPHILS # 20.3 10^3/uL (1.5-8.5); NEUTROPHILS % 88.7 % (36.0-66.0); RED BLOOD COUNT 3.26 10^6/uL (4.00-5.40); WHITE BLOOD COUNT 22.8 10^3/uL (4.0-10.0)
[2019-10-22 04:30] LABS: PLATELET COUNT, AUTOMATED 435 10^3/uL (150-450)
[2019-10-22] MEDS: **hydrALAZINE HCL** 25 MG TAB PO SCH ×3 (05:06→21:26)
[2019-10-22] MEDS: SODIUM CHLORIDE 0.9% INJ 10 ML SYR IV SCH ×2 (05:07→18:47)
[2019-10-22 05:20] LABS: ALBUMIN 1.8 GM/DL (3.2-5.2); BILIRUBIN,TOTAL 0.5 MG/DL (0.2-1.0); CALCIUM LEVEL 7.7 MG/DL (8.8-10.2); CREATININE FOR GFR 5.72 MG/DL (0.55-1.30); GLOMERULAR FILTRATION RATE 7.7 (>39); MAGNESIUM LEVEL 2.3 MG/DL (1.8-2.4); PHOSPHORUS LEVEL 8.9 MG/DL (2.5-4.9); POTASSIUM SERUM 4.8 MEQ/L (3.5-5.1); TOTAL PROTEIN 6.7 GM/DL (6.4-8.2)
[2019-10-22] MEDS: ISOSORBIDE DIN. (ISORDIL) 20 MG TAB PO SCH ×3 (06:10→17:00)
[2019-10-22] MEDS: ACETYLCYSTEINE 20% 4 ML VIAL (200MG/ML) INH SCH ×2 (07:37→20:07)
[2019-10-22] MEDS: LEVALBUTEROL 1.25 MG/0.5 ML CONCENTRATE NEB NEB PRN ×2 (07:48→20:08)
[2019-10-22] MEDS: HumaLOG INSULIN (NovoLOG) PER UNIT SC SCH ×4 (08:47→21:00)
[2019-10-22] MEDS: DOXYCYCLINE HYCLATE 100 MG TAB PO SCH ×2 (08:48→22:52)
[2019-10-22] MEDS: DOCUSATE SODIUM 100 MG CAP PO SCH ×2 (08:48→21:00)
[2019-10-22] MEDS: FLUCONAZOLE 100 MG TAB PO SCH (08:48)
[2019-10-22] MEDS: MOM 30ML SUSPENSION UDC PO SCH (08:48)
[2019-10-22] MEDS: NYSTATIN CREAM 15 GM EXT SCH ×3 (08:49→21:36)
[2019-10-22] MEDS ORDERED: FLUCONAZOLE 100 MG TAB PO SCH (09:00)
[2019-10-22] MEDS: LIDOCAINE 5% (LIDODERM) PATCH TD PRN (10:16)
--- NOTE | 2019-10-22 12:17 | IPN ---
DATE: 10/22/2019 Mrs. More has had a very significant 48 hours. She has had very long pauses reportedly up to 2 minutes of asystole. She is a DO NOT RESUSCITATE, DO NOT INTUBATE, however, she spontaneously comes back and is fully awake and responsive. This has now happened three times. I have asked Dr. Sandoval to place a pacemaker and that is going to be done this afternoon. Her vital signs show a maximum temperature (T-max) of 98.6 with a heart rate that is ranging between 71 and 75 and now in sinus rhythm with a respiratory rate of 18-22 without the use of accessory muscles who is 95% saturated on 2 liters nasal cannula and blood pressures range between 86/47 to 101/53. Her intake and output over the past 24 hours has been recorded as 1045 in and 570 out for a positivity of 475 mL. She has only put out 170 mL of urine and 300 mL from the chest tube. His weight is 77 kg today compared to 79.6 kg yesterday. As noted below, she continues to fall into renal failure. On physical examination, her lungs show wheezing and rhonchi in both phases of respiration. As far as I can tell, her percussion note is full to the diaphragm. Her morbid obesity influences the physical exam. Cardiac exam is without murmurs, clicks, gallops or rubs. In particular, I do not hear a paracardial friction rub. I cannot feel her point of maximum impulse (PMI). S1 and S2 are normal. Abdomen is soft but it is tender, diffusely. She is complaining of abdominal pain but the abdominal exam is somewhat out of proportion to her abdominal pain. Bowel sounds are hypoactive but positive. I cannot appreciated hepatomegaly. There is no costovertebral angle (CVA) tenderness. Extremities show2+ pretibial edema with no calf tenderness. She has some slight differential swelling of the right upper extremity from her known upper extremity deep venous thrombosis (DVT). Skin is warm, dry and perfused without cyanosis or mottling including that of the nail beds and knees. Neck is supple. There is no jugular venous distention. No subcutaneous emphysema. Trachea is midline. Mouth shows her mucous membranes to be pink and moist. Lips and commissures are without lesions. There is no thrush. Eyes show her pupils to be equal and reactive. Extraocular movements intact. Sclerae nonicteric. Neurologic shows II-XII intact along with gross motor and gross sensation intact. Gait is not tested. Psychiatric showed her to be awake, alert and oriented times three with appropriate and affect and conversational. Her white count today is 22.8 essentially unchanged over the last 4 days. Hemoglobin and hematocrit is 9 and 29 respectively with a platelet count 435 and stable. Differential shows 88% neutrophils, 3% lymphocytes, 60% monocytes. There are no immature forms or toxic granulations. Her chemistry shows essentially normal electrolytes with a BUN and creatinine, however of 86 and 5.72 with a glucose of 170 and a calcium of 7.7 with a corresponding albumin of 1.8. Total bilirubin is 0.5 and magnesium 2.3. Her blood gases yesterday showed a pH 7.21, pCO2 61, and a base excess of -4. It looks as if she has both a combined metabolic and respiratory acidosis. Her chest x-ray today shows a clearing of the left lower hemithorax. It is done portable and there is a diffuse haze in the right lower hemithorax. Her left chest tube is in good place. Re-review of her chest CT on 08/06/2018 shows a moderate right pleural effusion with underlying lung compression. I am sure that it is worse today because of her renal failure. There was no pericardial effusion. Her electrocardiogram to my eye showed an improvement in her left ventricular function, although cardiology is now reading it as unchanged as 35-40%. She has mild to moderate tricuspid regurgitation. IMPRESSION: 1. Pericardial effusion with tamponade relieved with tube pericardiostomy and pericardial window, postoperative day #9. 2. Morbid obesity. 3. Status post asystole, tamponade and metabolic acidosis just after surgery, resolved. 4. Continued long asystole pauses times three over the past 24 hours going for a pacemaker. 5. Rheumatoid arthritis. 6. Hypertension. 7. Congestive heart failure (CHF). 8. Pulmonary hypertension. 9. Left pleural effusion relieved with a chest tube. 10. Right pleural effusion pending pigtail catheter insertion. 11. Right heart failure. 12. Upper extremity deep vein thrombosis now on Eliquis. 13. Infiltrative process of the left lower lobes. 14. Increasing renal insufficiency and renal failure. 15. Abdominal pain unexplained. DISCUSSION: The nurse reports loose stools throughout the night. She continues to complain of her abdominal pain. We really do not have a good idea of what is causing her underlying malady. While her white count is elevated, she has been on antibiotics for over a week and if she has diffuse pain in her abdomen, we should consider C difficile colitis. I do not think that she has intestinal ischemia. I would expect her potassium to be quite elevated. Her total bicarbonate is 23, not particularly consistent with a severe metabolic acidosis. I do suspect she has significant CO2 retention. On the off chance that the left pleural effusion could be the culprit, I will have that drained and place that to a Pleur-evac. Will send it for a requisite studies of cytologies, bacteriologies and chemistries and hematologies. I had ordered a stool for C difficile. In fact, we find it extraordinary that she can have such long pauses and spontaneously come back and be perfectly neurologically intact. With these long pauses, however, the possibility of intestinal ischemia does raise its head.
[2019-10-22] MEDS ORDERED: LIDOCAINE 1% MDV 20ML VIAL As Ordered ONE ×2 (12:37→17:08)
[2019-10-22] MEDS ORDERED: DOPamine HCL 400 MG in IV 1 EA IV SCH ×2 (14:00→18:45)
--- NOTE | 2019-10-22 14:39 | IPN ---
DATE OF VISIT: 10/21/2019 Mrs. Cheryl More was seen earlier this evening. Yesterday she was doing well all day in sinus rhythm, bradycardic at times. Earlier this morning, she had an episode of sinus pause and a couple of episodes this evening. The case was discussed with linoleum installer covering, Dr. Tsang, and we have decided to start her on dobutamine. When I saw her later in the day, her blood pressure was stable on the dobutamine at 5 mcg and with a heart rate of about 60 beats per minute. Family was at the bedside. PHYSICAL EXAMINATION: On physical examination, the patient is alert and awake, but drowsy. Her vital signs when I saw revealed a blood pressure of 168/74 with a pulse of 75, respirations 20, and her maximum temperature was 97 degrees Fahrenheit with an oxygen saturation of 99% on noninvasive positive-pressure ventilation (NIPPV). Examination of the head: Atraumatic. The lungs did not reveal any wheezing or crackles. The hear examination revealed irregular heart sounds without gallops. The point of maximal impulse (PMI) is displaced inferiorly and laterally. There is no rub. Abdomen is soft. Extremities revealed trace bilateral lower leg/ankle edema. Neurological examination was limited. LABORATORY DATA: CBC done today revealed a WBC of 24.1, hemoglobin 9.6, hematocrit 31.3 and platelets 540,000. Serum troponin was 0.04, and 0.02, respectively #1 and #2 for today. BMP done earlier today revealed a sodium of 136, potassium 4.4, chloride of 103, CO2 24, BUN 77, creatinine 4.6, GFR 9.7 and fasting glucose 157 with a calcium of 7.6. Telemetry strips were reviewed. IMPRESSION: 1. Paroxysmal atrial fibrillation with underlying sick sinus syndrome and currently in normal sinus rhythm, on dobutamine. The case, as mentioned above, was discussed with linoleum installer and also discussed with the family. The patient will be monitored on the dobutamine. The patient and family has opted for a DO NOT RESUSCITATE, DO NOT INTUBATE status. Her AV blocking agent was discontinued, same for the amiodarone. Her Eliquis is on hold because similarly she might need a pacemaker. This was d/w the family, they may proceed with it. 2. Status post pericardial window for pericardial effusion. No pericardial effusion noted on her most recent echocardiogram. 3. Pneumonia with pleural effusion, more on the right. This is being addressed. There is a concern that she might have an abscess on the right lung base. She today was found to have an abnormal U/A and she was started on antifungals. 4. Acute kidney injury. This is being managed by nephrology. She may need dialysis. 5. Congestive failure with left ventricular systolic dysfunction and regional wall motion abnormalities. She might have underlying CAD. It was a pleasure to participate in the care of Mrs. Cheryl More for her underlying cardiac condition. I will continue to monitor along with you. Her prognosis seems to be poor. NIGEL
--- NOTE | 2019-10-22 14:50 | REP ---
Portable chest, 07:44 a.m., single AP view with the patient upright: Comparison is 10/21/2019. There is a left thoracotomy tube, unchanged. There is a left upper extremity PICC line with the tip in satisfactory location in the superior vena cava, unchanged. Cardiac size is enlarged, unchanged. There are bibasilar densities, unchanged. Impression: There is no interval change. Electronically Signed by Long Lion MD 10/22/2019 08:17 A
--- NOTE | 2019-10-22 15:56 | REP ---
Right thoracic sonography: Limited. History: Right pleural effusion. Pre-procedure sonography for anticipated thoracentesis. Findings: Right posterior pleural scanning confirms the presence of small to moderate right pleural effusion. Electronically Signed by Nicolas Barboza MD 10/22/2019 05:08 P
[2019-10-22] MEDS: ONDANSETRON 4MG/2ML VIAL (J2405) IV PRN (16:00)
--- NOTE | 2019-10-22 18:08 | REP ---
Portable chest, 05:54 p.m., post temporary pacer placement, the patient semi upright: Comparison is from 07:44 a.m. earlier today. There are bibasilar densities, unchanged. There is a left thoracotomy tube, unchanged. There is a left upper extremity PICC line, unchanged. There is cardiomegaly, unchanged. There is a new right IJ temporary pacemaker with the tip superimposed over the right ventricle in satisfactory position in this single view. There is no pneumothorax or pleural fluid collection. Electronically Signed by Long Lion MD 10/22/2019 06:00 P
[2019-10-22] MEDS ORDERED: LIDOCAINE 1% MDV 20ML VIAL SC ONE (18:15)
[2019-10-22] MEDS ORDERED: DOBUTamine HCL 500,000 MCG in IV 1 EA IV SCH (18:45)
--- NOTE | 2019-10-22 19:00 | RO ---
DATE OF PROCEDURE: 10/22/2019 PREOPERATIVE DIAGNOSIS: Complete heart block. POSTOPERATIVE DIAGNOSIS: Complete heart block. PROCEDURE: Insertion of temporary transvenous pacemaker. SURGEON/IMPLANTING STATIC BALANCER: Dr. Chong Steven TYPE OF ANESTHESIA: Local anesthesia. DESCRIPTION OF PROCEDURE: This 78-year-old lady with complicated medical history, currently in the intensive care unit following resuscitated arrest, has multiple ongoing medical problems, including metabolic encephalopathy, hypotension, acute renal insufficiency, urinary tract infection, paroxysmal atrial fibrillation and acute on chronic congestive heart failure, and DO NOT RESUSCITATE (DNR) status, who was not judged to be a suitable candidate for permanent dual-chamber pacemaker implant. We discussed with the patient and her family the use of a temporary pacemaker with optimizing medical therapy to improve cardiac output and renal perfusion as well as her medical status prior to considering a permanent device. Her prognosis at this point remains guarded. Following informed consent, with the patient lying in the intensive care unit bed, her left neck was prepped and draped in the usual fashion. The skin was infiltrated with 1% Xylocaine, and the right internal jugular vein was catheterized using the posterior approach. A 5-Maltese introducer was inserted without difficulty. A 4-Maltese balloon flotation bipolar temporary pacemaker was then advanced under EKG control to her right ventricular apex. Measured intracardiac electrogram measured more than 10 mV, and her pacing threshold was less than 1.0 V. The introducer catheter was sutured in place and a sterile sleeve was placed over the temporary pacing wire. Postprocedure portable upright chest x-ray confirmed appropriate lead position with no pneumothorax. A postprocedure EKG showed underlying complete heart block with consistent ventricular paced rhythm having QRS complexes with a left axis and left bundle branch block configuration in keeping with RV apical stimulation. TEMPORARY PACER SETTINGS: Her rate was left at 70 bpm. Output was left at 5.0 V. Sensitivity was set at full demand 1.0 mV. There were no complications and no blood loss. Postprocedure vital signs showed a heart rate of 70 beats per minute with blood pressure 105/60. She will be placed on combination low-dose dobutamine and dopamine hoping to augment left ventricular function and renal perfusion. [facility] [facility]
[2019-10-22] MEDS: DOPamine HCL 400 MG in IV 1 EA IV SCH (19:26)
--- NOTE | 2019-10-22 20:01 | IPN ---
DATE: 10/22/2019 SUBJECTIVE: Cheryl is seen and examined this morning at the bedside in the intensive care unit. Despite initiation of inotropic support, Lasix bolus and Lasix drip, she remains oligoanuric. She is having increased output from the chest tube. She is pending pacemaker placement due to episodes of asystole. She is also pending pigtail catheter insertion for the right pleural effusion. I discussed with the patient, her son and her grandchildren at the bedside regarding her renal failure, fluid overload and need for renal replacement therapy. They agree. Benefits and risks were discussed. Given her active cardiac issues/arrhythmias and inotropic support, we would opt for continuous renal replacement therapy (CRRT). The patient complains today of shortness of breath at rest, but denies chest pain or palpitations. Temperature 98.6, pulse 75, respiratory rate 18, blood pressure 95/54, saturating 90-93% on 2 liters nasal cannula. Intake yesterday was 1 liter. Urine output was only 170 mL. Chest tube drained 300 mL. Stool output was 100 mL. Net positive 470 mL. Weight in the bed scale today is 77kg. GENERAL: The patient is seen lying in bed in the intensive care unit. The head of the bed IS elevated. Extraocular muscles are intact. Ear, nose and throat are unremarkable. Heart sounds are regular. Jugular vein veins are elevated. There is no friction murmur. There is generalized edema of all four extremities. Lungs are diminished breath sounds at the bases, more so on the right base. There is a chest tube present on the left. Abdomen is soft and nontender. Genitourinary shows indwelling Peck catheter with minimal urine. Extremities reveal generalized edema of all four extremities. There is also edema at the dependent areas, sacrum and hip.. NEUROLOGIC: The patient is awake, alert and oriented times three, interactive and conversational. LABORATORY DATA: White count 22, hemoglobin 9.0, platelets 435. Sodium 135, potassium 4.8, bicarbonate 23, BUN 86, creatinine 5.7, phosphorus 8.9, albumin 1.8. Urine culture grew yeast. INPATIENT MEDICATIONS: She is on dobutamine infusion. Her Eliquis is on hold. Her Diflucan is reduced to 100 mg. Her remainder of medications are unchanged from prior. PROBLEMS: 1. Oliguric acute renal failure superimposed on chronic kidney disease (CKD) stage III. Baseline GFR around 55. The patient was admitted with an acute kidney injury and it has progressed since 10/18/2019. She did not respond to a Lasix bolus with Lasix infusion. Her oliguric renal failure is likely secondary to decompensated combined congestive heart failure/labile blood pressures/infection. She is volume overloaded, but there is otherwise no pressing indication for dialysis initiation today. She is for pacemaker placement and continued on inotropic support. We would plan for initiation of CRRT over the weekend if there is no improvement in her urine output. 2. Status post cardiac arrest with recurrent episodes of prolonged cardiac pause/asystole and spontaneous return of circulation. Patient is for pacemaker placement and is also on dobutamine and is followed by cardiology. Suspect that there is cardiorenal syndrome underlying. 3. Decompensated combined congestive heart failure. The patient has left ventricular ejection fraction of 35%, dilated right heart, bilateral pleural effusions, subcutaneous edema generalized in all four extremities and in the dependent areas. She is nonresponsive to Lasix bolus and Lasix infusion she is likely to require CRRT. 4. Bilateral pleural effusion status post chest tube on the left and pending pigtail catheter for the right. Chest tube drainage is likely ongoing in view of her decompensated fluid status. 5. Candiduria. Diflucan dose is adjusted for renal dosing. Patient has persistent leukocytosis and is afebrile and is also on doxycycline and Zosyn. Infectious etiologies are unclear to me. DISPOSITION: Oligoanuric renal failure. Volume overload. Recurrent prolonged cardiac pause on inotropic support and pending pacemaker placement. Will plan for CRRT over the weekend if there is no improvement in urine output. Plan was discussed at the bedside with educational resource center teacher.
[2019-10-22] MEDS: NYSTATIN 100,000 UNITS/GM TOPICAL PWD 15 GM TOP PRN (21:35)
[2019-10-22] MEDS: APIXABAN 5 MG TAB (ELIQUIS) PO SCH (21:35)
[2019-10-22] MEDS: **NOTE PATIENT COMMENT** MISC XX SCH (21:36)
--- NOTE | 2019-10-22 23:31 | IPNPDOC ---
Date Seen The patient was seen on 10/22/19. Progress Note SUBJECTIVE: Patient seen and examined overnight patient remained same as rhythm with a heart rate in the 70s with no additional sinus pauses noted after dobutamine drip was started. This morning patient awake and alert. She complained of chest pain which radiated to her back and her abdomen. Denied shortness of breath and nausea. Chest pain worsened with palpation and patient felt the pain was superficial. Patient with continued right pleural effusion and plan for pigtail catheter placement today. During positioning for catheter placement at bedside patient became unresponsive with prolonged sinus pause. Patient did spontaneously convert to junctional rhythm with heart rate in the 30s despite dobutamine drip. Patient was trialed on dopamine drip with minimal improvement in heart rate in the 40s. Pigtail chest tube catheter placement was aborted. Although initially planned for permanent pacemaker placement today, temporary pacemaker was placed given complete heart block. Patient paced in the 70s after temporary pacemaker placement. Brief Hospital Course: Patient is a 78 year old female who presented to the ED on 10/13/2019 after a mechanical fall. On admission, patient was noted to have a large pericardial effusion with signs of tamponade and was taken urgently to the OR for pericardial window. Post-operative, patient in Afib with RVR and was given beta- hank and cardioversion. Shortly after, patient in asystole requiring chest co mpressions. (please sleep code sheet for details). Patient recovered following arrest and was able to be extubated without any noteable changes in mentation. On 10/21, patient an additional 1 minute asystolic pause that spontaneously resolved. Patient with multiple episodes of prolonged sinuses pauses, concerning for complete heart block. Temporary pacemaker placed 10/22/2019. During course of stay, patient with persistent diffuse edema and bilateral pleural effusion s/p chest tube placement on the left. Patient with decreased urine output and worsening kidney function throughout hospital stay. She was started on Lasix gtt and nephrology consulted. Patient also with persistent WBC. Repeat UA with increased WBC and yeast noted. Diflucan started. OBJECTIVE PHYSICAL EXAMINATION at time of examination 0800. VITAL SIGNS: Please see below. GENERAL: Alert and oriented in no acute distress HEENT: Normocephalic atraumatic CARDIOVASCULAR: Sinus rhythm with heart rate in the 70s, diffuse edema of upper and lower extremities tenderness to palpation diffusely on the chest wall RESPIRATORY: Decreased breath sounds on the right chest tube placement on the left ABDOMINAL: Soft, nontender, nondistended, positive bowel sounds EXTREMITIES: Normal range of motion and strength of all 4 extremities NEUROLOGICAL: Alert and oriented 3 without focal deficits noted SKIN: Warm and dry. Recent surgical scar from pericardial window noted LABORATORY DATA, IMAGING STUDIES, MICROBIOLOGY: Please see below. ASSESSMENT AND PLAN: # Asystolic cardiac arrest with recurrent episodes of cardiac pause, due to complete heart block -Temporary pacemaker placed today - Will continue dobutamine and dopamine at steady rate for next 2-3 days to aid in renal perfusion - Will need permanent pacemaker prior to discharge - Discussed at length with cardiology # Acute hypoxemic and hypercapnic respiratory failure S/P cardiac arrest/pause - s/p extubation 10/15, secondary to fluid overload with bilateral pleural effusions - BiPAP PRN for increased lethargy or increased work of breathing - Chest tube in place for bilateral pleural effusion, plan for drainage of right pleural effusion today unsuccessful due to sinus pause. Will plan on just the future - Possible underlying pneumonia given bronchograms on CT, however procalcitonin low. Will discontinue antibiotics # KAELYN on CKD 3, worsening -Likely cardiorenal syndrome in the context of poor renal perfusion in setting of heart block - Avoid nephrotoxic agents -Urine culture with the species continue Diflucan for 14 days - Will likely need dialysis/CRRT tomorrow - Nephrology following, discuss with nephrology #UTI -Continue Diflucan however we will renally dose it 100 mg daily # Acutely decompensated systolic and diastolic CHF -Titrate oxygen to keep SPO2 greater than 92%. Patient with increased oxygen requirements likely necessitating the need for Ht/CRRT tomorrow - Strict I/O, daily wt, 2L fluid restriction #Persistent leukocytosis - Suspect a leukymoid reaction with slight increase in WBC and neutrophil count. Likely related to her block - Will add Diflucan #Bilateral Pleural Effusion - Left pleural effusion improved with chest tube in place, and chest pain removal tomorrow - Plan for drainage of right pleural effusion when clinically stable. Hold Eliquis #Pericardial effusion with impending tamponade, exudative - s/p pericardial window 10/13 - Etiology unclear, but given history may be related to auto-immune process, Cytology negative for malignancy - CT surgery following #Diabetes mellitus, type 2 - A1C = 2.1% - Continue sliding scale insulin - Patient poor PO intake today, will increase insulin if diet improves and glucose continues to be elevated #Candidasis - Nystatin powder and cream to affect skin folds #Pulmonary hypertesnion - Strive for negative fluid balance #Pneumonia - Was of consideration, however, procalcitonin remains low and patient remains afebrile. Leukomyoid reaction likely due to heart block. Will start antibiotics as pneumonia clinical unlikely #Right upper extremity DVT - Hold Eliquis for procedure # Hypertension - Controlled at this time, continue hydralazine #RA - On remicade at home #Morbid Obesity - Will need education with clinical improvement Resolved Hospital Problems: Afib with RVR Metabolic encephalopathy Diet: Renal diet, however, NPO while BiPAP in place DVT/GI ppx: Hold Eliquis for right chest tube, GI ppx not indicated at this time L/T/D: Peck catheter (10/21/2019) Drips: Dobutamine 5mcg/kg/min to keep HR > 55 CODE STATUS: DNR/DNI. Confirmed with patient and son today Dispo: Continue to monitor in the ICU. Patient with frequent pauses on telemetry. Overall progrnosis is poor. Discussed with cardiology, nephrology, and CT surgery. Critical Care Time: 65 minutes. Time spent immediately at bedside evaluation patient, interpreting labs and monitoring interventions. Time excluded of all other provider critical care time. Bill[place] VS, I&O, 24H, [facility] Vital Signs/I&O Vital Signs Date Time Temp Pulse Resp B/P (MAP) Pulse Ox O2 Delivery O2 Flow Rate FiO2 10/22/19 18:00 69 106/57 (73) 98 Non-Rebreather 10/22/19 15:58 97.7 18 4.0 10/21/19 23:00 50 I&O- Last 24 Hours up to 6 AM 10/22/19 06:00 Intake Total 1075 ml Output Total 535 ml Balance 540 ml Laboratory Data 24H LABS Laboratory Tests 2 10/22/19 04:00: Immature Granulocyte % (Auto) 1.1, Neutrophils (%) (Auto) 88.7H, Lymphocytes (%) (Auto) 3.6L, Monocytes (%) (Auto) 6.3H, Eosinophils (%) (Auto) 0.1, Basophils (%) (Auto) 0.2, Neutrophils # (Auto) 20.3H, Lymphocytes # (Auto) 0.8L, Monocytes # (Auto) 1.4H, Eosinophils # (Auto) 0.0, Basophils # (Auto) 0.0, Nucleated Red Blood Cells % (auto) 0.0, Anion Gap 12, Glomerular Filtration Rate 7.7L, Calcium Level 7.7L, Phosphorus Level 8.9H, Magnesium Level 2.3, Total Bilirubin 0.5, Aspartate Amino Transf (AST/SGOT) 9, Alanine Aminotransferase (ALT/SGPT) 17, Alkaline Phosphatase 56, Total Protein 6.7, Albumin 1.8L, Albumin/Globulin Ratio 0.37L 10/22/19 11:41: Bedside Glucose (Misc Panel) 118H 10/22/19 18:25: Bedside Glucose (Misc Panel) 167H 10/22/19 21:13: Bedside Glucose (Misc Panel) 112H CBC/BMP Laboratory Tests 10/22/19 04:00 Microbiology Microbiology 10/21/19 Urine Culture - Final, Complete Yeast Like Organism 10/17/19 Blood Culture - Final, Complete NO GROWTH AFTER 5 DAYS 10/17/19 Blood Culture - Final, Complete NO GROWTH AFTER 5 DAYS 10/17/19 Gram Stain - Final, Complete 10/17/19 Body Fluid Culture - Final, Complete 10/17/19 Anaerobic Culture - Final, Complete 10/17/19 Acid Fast Stain, Received Pending 10/17/19 Mycobacterial Culture, Received Pending 10/17/19 Fungal Smear, Received Pending 10/17/19 Fungal Culture, Received Pending 10/14/19 Gram Stain - Final, Complete 10/14/19 Sputum Culture - Final, Complete 10/13/19 Acid Fast Stain, Received Pending 10/13/19 Mycobacterial Culture, Received Pending 10/13/19 Fungal Smear, Received Pending 10/13/19 Fungal Culture, Received Pending 10/13/19 Gram Stain - Final, Complete 10/13/19 Body Fluid Culture - Final, Complete 10/13/19 Anaerobic Culture - Final, Complete 10/13/19 Acid Fast Stain, Received Pending 10/13/19 Mycobacterial Culture, Received Pending 10/13/19 Fungal Smear, Received Pending 10/13/19 Fungal Culture, Received Pending 10/13/19 Gram Stain - Final, Complete 10/13/19 Anaerobic Culture - Final, Complete 2/12/20 Gram Stain - Final, Complete 10/13/19 Body Fluid Culture - Final, Complete 10/13/19 Blood Culture - Final, Complete NO GROWTH AFTER 5 DAYS SANAM ALVARENGA DO Oct 22, 2019 23:13
[2019-10-23] VITALS (58 sets, daily range): BP systolic 77–172; BP diastolic 52–116; O2SAT 97–100
[2019-10-23] MEDS: SODIUM CHLORIDE HYPERTONIC 3% 15ML NEB SOL INH SCH ×6 (04:19→23:37)
[2019-10-23] MEDS: **hydrALAZINE HCL** 25 MG TAB PO SCH (06:00)
[2019-10-23 06:20] LABS: BASO # 0.1 10^3/uL (0.0-0.2); BASO % 0.2 % (0.0-1.0); EOS % 0.2 % (0.0-3.0); HEMATOCRIT 28.2 % (36.0-47.0); HEMOGLOBIN 8.8 g/dl (12.0-15.5); LYMPH # 0.9 10^3/uL (1.5-5.0); LYMPH % 4.2 % (24.0-44.0); MEAN CORPUSCULAR HEMOGLOBIN 27.2 pg (27.0-33.0); MEAN CORPUSCULAR HGB CONC 31.2 g/dl (32.0-36.5); MONO # 1.5 10^3/uL (0.0-0.8); MONO % 6.7 % (0.0-5.0); NEUTROPHILS # 18.8 10^3/uL (1.5-8.5); NEUTROPHILS % 87.4 % (36.0-66.0); PLATELET COUNT, AUTOMATED 417 10^3/uL (150-450); RED BLOOD COUNT 3.24 10^6/uL (4.00-5.40); WHITE BLOOD COUNT 21.5 10^3/uL (4.0-10.0)
[2019-10-23] MEDS: SODIUM CHLORIDE 0.9% INJ 10 ML SYR IV SCH ×2 (06:26→18:00)
[2019-10-23] MEDS: ISOSORBIDE DIN. (ISORDIL) 20 MG TAB PO SCH (06:28)
[2019-10-23 07:19] LABS: ALBUMIN 1.8 GM/DL (3.2-5.2); BILIRUBIN,TOTAL 0.6 MG/DL (0.2-1.0); CALCIUM LEVEL 8.3 MG/DL (8.8-10.2); CREATININE FOR GFR 6.8 MG/DL (0.55-1.30); GLOMERULAR FILTRATION RATE 6.3 (>39); MAGNESIUM LEVEL 2.4 MG/DL (1.8-2.4); POTASSIUM SERUM 5.1 MEQ/L (3.5-5.1); TOTAL PROTEIN 6.8 GM/DL (6.4-8.2)
[2019-10-23] MEDS: HumaLOG INSULIN (NovoLOG) PER UNIT SC SCH ×4 (07:30→21:00)
--- NOTE | 2019-10-23 08:08 | REP ---
Portable chest, 06:54 a.m., single AP view with the patient semi upright: Comparison is 10/22/2019. The bibasilar densities appear more radiodense than on the comparison study, however, this could be artifact from radiographic technique. The The left thoracotomy tube is unchanged. Left upper extremity PICC line is unchanged. The right IJ temporary pacemaker is unchanged. Cardiomegaly is unchanged. There is slight thickening of the minor fissure on the right, possibly fluid within the fissure. Impression: The bibasilar densities have increased in density. However, this could be artifact from radiographic technique. No other interval change. Electronically Signed by Long Lion MD 10/23/2019 08:00 A
[2019-10-23] MEDS: DOCUSATE SODIUM 100 MG CAP PO SCH ×2 (08:23→21:00)
[2019-10-23] MEDS: FLUCONAZOLE 100 MG TAB PO SCH (08:23)
[2019-10-23] MEDS: MOM 30ML SUSPENSION UDC PO SCH (08:24)
[2019-10-23] MEDS: NYSTATIN CREAM 15 GM EXT SCH ×3 (08:24→21:29)
[2019-10-23] MEDS: ACETYLCYSTEINE 20% 4 ML VIAL (200MG/ML) INH SCH ×2 (08:30→20:41)
[2019-10-23] MEDS: LEVALBUTEROL 1.25 MG/0.5 ML CONCENTRATE NEB NEB PRN ×2 (08:30→15:47)
[2019-10-23] MEDS ORDERED: HEPARIN 1,000 UNITS/ML 10ML VIAL (FOR RADIOLOGY& DIALYSIS ONLY)(J1644-10) XX ONE (09:00)
[2019-10-23] MEDS ORDERED: HEPARIN 1,000 UNITS/ML 10ML VIAL (FOR RADIOLOGY& DIALYSIS ONLY)(J1644-10) IV PRN (09:30)
[2019-10-23] MEDS ORDERED: SODIUM CHLORIDE 0.9% INJ 10 ML SYR IV PRN (09:30)
[2019-10-23 10:07] LABS: INR 2.14; PARTIAL THROMBOPLASTIN TIME 38.4 SECONDS (25.0-38.4); PROTHROMBIN TIME 23.7 SECONDS (11.8-14.0)
[2019-10-23] MEDS ORDERED: LIDOCAINE 1% MDV 20ML VIAL As Ordered ONE (10:38)
[2019-10-23] MEDS ORDERED: FUROSEMIDE 100 MG/10 ML VIAL (J1940) IV ONE (11:00)
--- NOTE | 2019-10-23 12:09 | IPNPDOC ---
Date Seen The patient was seen on 10/23/19. Progress Note SUBJECTIVE: Patient seen and examined. No acute events overnight. Patient with temporary pacer in place. Patient currently pacing at a rate of 70. Patient is awake but states she is tired. Patient reports some chest pain and abdominal pain and nausea. She reports that she is overall doing "well". Patient is alert and oriented to name only. She falls asleep quickly. During the day and patient with work Sure of transvenous pacemaker requiring advancement of 2 cm at the pacer with improvement in capture. Patient also remains anuric and therefore right femoral HD catheter was placed and CRRT was initiated. Following the initiation of CRRT patient developed an accelerated junctional rhythm with heart rates greater than 100. Dopamine and dobutamine were discontinued. Amiodarone was started. Brief Hospital Course: Patient is a 78 year old female who presented to the ED on 10/13/2019 after a mechanical fall. On admission, patient was noted to have a large pericardial effusion with signs of tamponade and was taken urgently to the OR for pericardial window. Post-, patient in Afib with RVR and was given beta-hank and cardioversion. Shortly after, patient in asystole requiring chest compressions. (please sleep code sheet for details). Patient recovered following arrest and was able to be extubated without any noteable changes in mentation. On 10/21, patient an additional 1 minute asystolic pause that spontaneously resolved. Patient with multiple episodes of prolonged sinuses pauses, concerning for complete heart block. Temporary pacemaker placed 10/22/2019. During course of stay, patient with persistent diffuse edema and bilateral pleural effusion s/p chest tube placement on the left. Patient with decreased urine output and worsening kidney function throughout hospital stay. She is now anuric with ATN. Patient also with persistent WBC. Repeat UA with increased WBC and yeast noted. Diflucan started. OBJECTIVE PHYSICAL EXAMINATION at time of examination 0800. VITAL SIGNS: Please see below. GENERAL: Alert and oriented to person, in no acute distress HEENT: Normocephalic atraumatic CARDIOVASCULAR: Paced rhythm with heart rate in the 70s, diffuse edema of upper and lower extremities, midline surgical scar noted RESPIRATORY: Decreased breath sounds on the right chest tube placement on the left ABDOMINAL: Soft, nontender, nondistended, positive bowel sounds EXTREMITIES: Spontaneously moves all 4 extremities but decreased strength throughout NEUROLOGICAL: Alert and oriented 1 without focal deficits noted SKIN: Warm and dry. LABORATORY DATA, IMAGING STUDIES, MICROBIOLOGY: Please see below. ASSESSMENT AND PLAN: # Asystolic cardiac arrest with recurrent episodes of cardiac pause, due to complete heart block -Temporary pacemaker placed 10/22 -Discontinued dobutamine and dopamine given tachycardia - Will need permanent pacemaker prior to discharge depending on life expectancy - Given chronic comorbidities and overall poor long-term prognosis, palliative care was consulted - Discussed at length with cardiology # Acute hypoxemic and hypercapnic respiratory failure S/P cardiac arrest/pause - s/p extubation 10/15, secondary to fluid overload with bilateral pleural effusions - Chest tube in place for bilateral pleural effusion, we'll plan for fluid removal CRRT #ATN on CKD 3 -Likely cardiorenal syndrome in the context of poor renal perfusion in setting of heart block - Avoid nephrotoxic agents -Urine culture with the species continue Diflucan for 14 days -H she catheter placed and CRRT started - Nephrology following, discuss with nephrology #UTI -Continue Diflucan however we will renally dose it 100 mg daily # Acutely decompensated systolic and diastolic CHF -Titrate oxygen to keep SPO2 greater than 92% - Beta hank hold for complete heart block, GIFTY inhibitor/ARB for HTN - Strict I/O, daily wt, 2L fluid restriction #Persistent leukocytosis - Suspect a leukymoid reaction with slight increase in WBC and neutrophil count. Likely related to her block - Will add Diflucan - Anticipate improvement with increased perfusion #Bilateral Pleural Effusion - Left pleural effusion improved with chest tube in plac - CT surgery managing chest tube #Pericardial effusion with impending tamponade, exudative - s/p pericardial window 10/13 - Etiology unclear, but given history may be related to auto-immune process, Cytology negative for malignancy - CT surgery following #Diabetes mellitus, type 2 - A1C = 8.1%. Incorrectly noted as 2.1% in previous note - Continue sliding scale insulin - Patient poor PO intake today, will increase insulin if diet improves and glucose continues to be elevated #Candidasis - Nystatin powder and cream to affect skin folds #Pulmonary hypertesnion - Strive for negative fluid balance - Potential from long-standing history of sleep apnea. We will continue CPAP at night #Right upper extremity DVT -Consider resuming anticoagulation tomorrow. We'll hold today giving bleeding noted at pacer site # Hypertension - Controlled at this time #RA - On remicade at home #Morbid Obesity - Will need education with clinical improvement Resolved Hospital Problems: Afib with RVR Metabolic encephalopathy Diet: Renal diet, however, however patient with poor by mouth intake and i ncreased lethargy DVT/GI ppx: SCDs, hold anticoagulation given oozing from pacer site, GI ppx not indicated at this time L/T/D: Peck catheter (10/21/2019), right IJ transvenous pacemaker (10/22), right femoral HD catheter (10/23), left upper extremity PICC line inadvertently removed today Drips: None CODE STATUS: DNR/DNI. Dispo: Continue to monitor in the ICU. Patient with frequent arrhythmias with underlining heart block requiring intravenous pacemaker patient also with ATN requiring 1:1 nursing for CRRT. Critical Care Time: 45 minutes. Time spent immediately at bedside evaluation patient, interpreting labs and monitoring interventions. Time excluded of all other billable procedures. Bill[place] VS, I&O, 24H, [facility] Vital Signs/I&O Vital Signs Date Time Temp Pulse Resp B/P (MAP) Pulse Ox O2 Delivery O2 Flow Rate FiO2 10/23/19 08:00 97.8 69 18 126/60 (82) 94 Nasal Cannula 3.0 10/23/19 07:00 50 I&O- Last 24 Hours up to 6 AM 10/23/19 05:59 Intake Total 572 ml Output Total 245 ml Balance 327 ml Laboratory Data 24H LABS Laboratory Tests 2 10/22/19 18:25: Bedside Glucose (Misc Panel) 167H 10/22/19 21:13: Bedside Glucose (Misc Panel) 112H 10/23/19 06:00: Immature Granulocyte % (Auto) 1.3, Neutrophils (%) (Auto) 87.4H, Lymphocytes (%) (Auto) 4.2L, Monocytes (%) (Auto) 6.7H, Eosinophils (%) (Auto) 0.2, Basophils (%) (Auto) 0.2, Neutrophils # (Auto) 18.8H, Lymphocytes # (Auto) 0.9L, Monocytes # (Auto) 1.5H, Eosinophils # (Auto) 0.0, Basophils # (Auto) 0.1, Nucleated Red Blood Cells % (auto) 0.0, Anion Gap 13, Glomerular Filtration Rate 6.3L, Calcium Level 8.3L, Phosphorus Level 10.0H, Magnesium Level 2.4, Total Bilirubin 0.6, Aspartate Amino Transf (AST/SGOT) 10, Alanine Aminotransferase (ALT/SGPT) 16, Alkaline Phosphatase 54, Total Protein 6.8, Albumin 1.8L, Albumin/Globulin Ratio 0.36L 10/23/19 07:38: Bedside Glucose (Misc Panel) 98 10/23/19 09:38: Prothrombin Time 23.7H, Prothromb Time International Ratio 2.14, Activated Partial Thromboplast Time 38.4, Whole Blood Ionized Calcium 4.1L CBC/BMP Laboratory Tests 10/23/19 06:00 Microbiology Microbiology 10/21/19 Urine Culture - Final, Complete Yeast Like Organism 10/17/19 Blood Culture - Final, Complete NO GROWTH AFTER 5 DAYS 10/17/19 Blood Culture - Final, Complete NO GROWTH AFTER 5 DAYS 10/17/19 Gram Stain - Final, Complete 10/17/19 Body Fluid Culture - Final, Complete 10/17/19 Anaerobic Culture - Final, Complete 10/17/19 Acid Fast Stain, Received Pending 10/17/19 Mycobacterial Culture, Received Pending 10/17/19 Fungal Smear, Received Pending 10/17/19 Fungal Culture, Received Pending 10/14/19 Gram Stain - Final, Complete 10/14/19 Sputum Culture - Final, Complete 10/13/19 Acid Fast Stain, Received Pending 10/13/19 Mycobacterial Culture, Received Pending 10/13/19 Fungal Smear, Received Pending 10/13/19 Fungal Culture, Received Pending 10/13/19 Gram Stain - Final, Complete 10/13/19 Body Fluid Culture - Final, Complete 10/13/19 Anaerobic Culture - Final, Complete 10/13/19 Acid Fast Stain, Received Pending 10/13/19 Mycobacterial Culture, Received Pending 10/13/19 Fungal Smear, Received Pending 10/13/19 Fungal Culture, Received Pending 10/13/19 Gram Stain - Final, Complete 10/13/19 Anaerobic Culture - Final, Complete 10/13/19 Gram Stain - Final, Complete 10/13/19 Body Fluid Culture - Final, Complete 10/13/19 Blood Culture - Final, Complete NO GROWTH AFTER 5 DAYS SANAM ALVARENGA DO Oct 23, 2019 12:08
[2019-10-23] MEDS ORDERED: LIDOCAINE 1% MDV 20ML VIAL SC ONE (13:00)
--- NOTE | 2019-10-23 13:58 | IPN ---
CARDIOLOGY PROGRESS NOTE (Covering for Dr. Sandoval) DATE: 10/23/2019 SUBJECTIVE: The patient currently is not complaining of chest discomfort, shortness of breath, but is lethargic. OBJECTIVE: Obese, elderly lady, appeared to be lying comfortably with the head of the bed elevated 30 degrees. Heart rate 70 bpm and regular, blood pressure 150/72, respiratory rate 18 per minute, oxygen saturation 94% on supplemental oxygen by nasal prongs at 3 liters. She appears somewhat pale. Normal oral moisture. No central cyanosis. Trachea midline. Her right internal jugular temporary pacer site had been oozing related to elevated central venous pressure and anticoagulated state. Slightly increased anteroposterior chest diameter with adequate chest expansion. Inspiratory rales diffusely. Slight prolongation of expiration, but no audible wheeze. Apical impulse was not palpable. Heart sounds are distant. Has obvious generalized pitting edema of her lower legs, sacrum, lumbar spine and upper extremities. Pedal pulses not palpable through edema fluid. BOTTLER: This has been showing mostly consistent ventricular paced rhythm, with what appears to be retrograde atrial activation. Unfortunately, earlier today she had several episodes of pacemaker noncapture that appeared to be remedied by advancing her pacing lead. CHEST X-RAY: Study performed this morning is reviewed independently and shows obvious cardiomegaly, even allowing for this portable technique. Her temporary pacing lead appears to be in good position. She also has a peripherally inserted central catheter (PICC) line from the left forearm terminating in the superior vena cava. Obvious pulmonary vascular congestion with persistent left pleural effusion despite chest tube. Likely has right pleural effusion as well. EKG: Yesterday following her device insertion shows underlying complete heart block with consistent ventricular paced rhythm, with left paced QRS complexes having a left axis and left bundle branch block (LBBB) configuration, in keeping with right ventricular (RV) apical stimulation. Curiously, today she appears to have a one-to-one retrograde atrial activation despite her antegrade complete heart block. LABORATORY DATA: Hemoglobin today down to 8.8 from 9 yesterday, leukocytosis of 21,500 persists, her platelet count was normal. Her PT/INR was 23.7/2.1, but Eliquis was discontinued only last night. Chemistry today shows serum sodium of 132, normal potassium and bicarbonate, BUN is up to 103, creatinine is up to 6.8, fasting glucose was 102, calcium is 8.3 with albumin of 1.8, magnesium level was 2.4. Total bilirubin and transaminase remarkably are normal. Pro-BNP level 10/20/2019: 12,554. ECHOCARDIOGRAM: Study from 10/20/2019 was reviewed independently and shows mild left ventricle hypertrophy with normal to hyperkinetic wall motion. Left atrium was moderately dilated with Doppler evidence of grade 2 left ventricular (LV) diastolic dysfunction and markedly elevated estimated mean left atrial pressure. Right heart chambers were also at least moderately dilated, as was the pulmonary trunk. Right ventricular free wall motion was slightly hypokinetic, with calculated pulmonary arterial pressure of 87 mmHg. Her inferior cava was mildly dilated with reduced respiratory collapse, in keeping with an elevated central venous pressure. Normal aortic dimensions with mild aortic valvular sclerosis without functional valvular abnormality. She had moderate mitral annular calcification with no more than very mild insufficiency. No pericardial effusion of this time. IMPRESSION/PLAN: 1. Complete heart block: Has preexisting left bundle branch block. It has developed complete heart block following her eventful course. Currently with transvenous temporary ventricular demand pacemaker in situ from the right internal jugular site functioning appropriately. Currently has very rare spontaneous QRS complex and current pacing threshold is 3 volts. I have adjusted her output setting to 8 volts at this time. Plan is to continue with a temporary pacing until we have a better idea of the patient's clinical prognosis, currently quite guarded. 2. Heart failure (diastolic dysfunction/acute on chronic): Clinically has gross anasarca. Remarkably, has a reasonable oxygen O2 saturation on supplemental oxygen by nasal prongs alone. Urine output has improved with pacing and combination dobutamine and dopamine low-dose infusions. However, renal function continues to deteriorate and preparations are being made for her to undergo dialysis from a femoral site today. 3. Pericardial effusion/post pericardial window: Apparently had only 400 mL of pericardial fluid drained. Followup echocardiogram 10/20/2019. Postprocedure shows complete resolution. Her pericardium incision appears to be healing well. 4. Hypertensive heart disease (benign with heart failure): Her current blood pressure is considerably improved with consistent pacing and low-dose dopamine and dobutamine infusions. At this point, I have placed her hydralazine and isosorbide on hold. Currently fairly dismal renal function. Hopefully this will improve with lutheran of normal vital signs. 5. Cor pulmonale/heart failure: Clinically and echocardiographically, she has substantial evidence of a separate superimposed right heart problem. I suspect it is related to obstructive sleep apnea. Pressure is obviously aggravated by left ventricular diastolic dysfunction. I will continue to follow her closely with you and appreciate the opportunity to participate in her care.
--- NOTE | 2019-10-23 14:56 | ECGEPIP ---
[facility] Test Date: 2019-10-22 Pat Name: MINA TA Department: Room: [place] [address] Gender: Female Nu[employer] Specialist: MATI : 1940 Requested By: Chong Steven Order Number: [id number] Reading MD: Chong Steven Measurements Intervals [place] Rate: 69 P: AR: 0 QRS: -71 QRSD: 184 T: 105 QT: 496 QTc: 533 Interpretive Statements underlying complete heart block Consistent ventricular paced rhythm Paced QRS complexes with left axis deviation and Left bundle branch block configuration in keeping with RV apical stimulation. Rhythm change from 10/14/19 Electronically Signed on 10-23-2019 14:56:52 EST by Chong Steven
[2019-10-23] MEDS: ACETAMINOPHEN TAB 650MG DOSE (2X325MG) PO PRN (15:14)
[2019-10-23] MEDS ORDERED: AMIODARONE HCL 150 MG in IV 1 EA IV STA ×2 (16:05→17:20)
[2019-10-23] MEDS ORDERED: AMIODARONE HCL 150 MG/100 ML PREMIXED BAG (NEXTERONE) (J0282 PER 30MG) As Ordered ONE (16:07)
[2019-10-23] MEDS: DOPamine HCL 400 MG in IV 1 EA IV SCH (16:32)
--- NOTE | 2019-10-23 16:50 | REP ---
Portable chest, 04:29 p.m., single AP view with the patient sitting: Comparison is the portable chest, and 06:54 a.m. earlier today. There is a new right IJ temporary pacemaker, unchanged. The pacemaker tenth is unchanged in position. There is a left thoracotomy tube, unchanged. There are bibasilar lung parenchymal densities, unchanged. There is cardiomegaly, unchanged. Small volume of fluid in the minor fissure on the right, unchanged. Impression: There is no interval change. The temporary pacemaker tip is unchanged in position. Electronically Signed by Long Lion MD 10/23/2019 04:41 P
[2019-10-23 17:04] LABS: HEMATOCRIT 28.1 % (36.0-47.0); HEMOGLOBIN 8.9 g/dl (12.0-15.5); MEAN CORPUSCULAR HEMOGLOBIN 27.4 pg (27.0-33.0); MEAN CORPUSCULAR HGB CONC 31.7 g/dl (32.0-36.5); MEAN CORPUSCULAR VOLUME 86.5 fl (80.0-96.0); PLATELET COUNT, AUTOMATED 425 10^3/uL (150-450); RED BLOOD COUNT 3.25 10^6/uL (4.00-5.40); WHITE BLOOD COUNT 18.5 10^3/uL (4.0-10.0)
[2019-10-23 17:23] LABS: ALBUMIN 1.8 GM/DL (3.2-5.2); CALCIUM LEVEL 7.5 MG/DL (8.8-10.2); CALCIUM LEVEL 7.8 MG/DL (8.8-10.2); CREATININE FOR GFR 4.8 MG/DL (0.55-1.30); CREATININE FOR GFR 4.89 MG/DL (0.55-1.30); GLOMERULAR FILTRATION RATE 9.2 (>39); GLOMERULAR FILTRATION RATE 9.4 (>39); MAGNESIUM LEVEL 2.4 MG/DL (1.8-2.4); PHOSPHORUS LEVEL 7.4 MG/DL (2.5-4.9); POTASSIUM SERUM 4.6 MEQ/L (3.5-5.1)
[2019-10-23] MEDS: AMIODARONE 200 MG TAB (PACERONE) PO SCH ×2 (18:16→21:29)
--- NOTE | 2019-10-23 18:37 | CCN ---
DATE: 10/23/2019 Mrs. Jackson is seen this morning on her bedside in intensive care unit. She had a temporary pacemaker placed yesterday due to long pauses of asystole. Her pacemaker has been functioning; however, nursing staff reports that she did have a couple of episodes of about 1 minute or longer off asystole again. Cardiology has been informed, and there is a plan for adjustment of the pacemaker lead this morning. In the meantime, the patient remains oliguric and volume overloaded. She is weak and nauseated. She has been requiring oxygen up to 3 liters and saturating in the range of 88-96%. She has a chest tube, which is draining slight pink fluid. PHYSICAL EXAMINATION: Temperature 98.2 degrees Fahrenheit, heart rate 70 per minute, respiratory rate 24 per minute, blood pressure 123/57 mm of mercury, and oxygen saturation is at present 95% on 3 liters oxygen. She has generalized anasarca. Neck veins are difficult to be assessed. Temporary pacemaker lead is present on the right side of her neck. Neck veins are significantly distended. She has no oral thrush or ulcers. Heart sounds are somewhat distant and without a pericardial friction rub audible. Lungs have diminished breath sounds bilaterally. Abdomen is soft and protuberant but nontender. Bowel sounds are present. Extremities have no cyanosis or clubbing. She has significant upper and lower extremity edema. Neurologically, she is awake, alert, and able to answer questions. This morning's labs show WBC count 21.5, hemoglobin 8.8, hematocrit 28.2, and platelets 417. Last blood gas was done on October 21, which showed pH of 7.21, pCO2 of 61 and pO2 of 78. This morning's chemistry showed a sodium level 132, potassium 5.1, CO2 of 22, BUN 103, and creatinine 6.80. Glucose 102 and calcium 8.4. Phosphorus level is 10.0 and ionized calcium 4.1. Total protein 6.8 and albumin 1.8. PROBLEMS: 1. Oliguric acute renal failure. The patient remains with minimal urine output. She has been on intravenous dobutamine and dopamine drips and has not responded to intravenous (IV) Lasix drip. I discussed with the patient and her son, who is present in the room, about potential need for urgent dialysis. Patient has consented, and the patient's son also consented. In view of her borderline hemodynamics and risk for hypotension, we will start with a continuous renal replacement therapy (CRRT) on the bedside. We will try to remove about 50-60 mL of fluid per hour as tolerated. A new hemodialysis catheter will be placed, most likely in her right femoral vein. 2. Hypervolemia with respiratory insufficiency. The patient has significant volume overload with generalized edema and pleural effusions. She has not responded to diuretics and has been on dobutamine and dopamine drips. I am not sure if these pressors are likely to help. We will remove fluid with CRRT and try to correct her volume status over the next few days. 3. Hyponatremia. She has mild hyponatremia, which is gradually worsening due to volume overload. This will also be corrected with CRRT. She should remain on restricted fluid intake due to oliguric acute renal failure and hypervolemia. 4. Asystole and status post temporary pacemaker placement. The patient continues to have long pauses despite temporary pacemaker placement. Cardiology is going to adjust her pacemaker lead and try to prevent further episodes. We hope that with improved cardiac output, she will have better chances of recovery of kidney function. At this point, she is still oliguric and not responding to intravenous diuretics. There was 35 minutes of critical care time spent on the bedside, during which no procedures were performed. A new hemodialysis catheter will be placed only after adjustment in her pacemaker when she is considered more stable.
--- NOTE | 2019-10-23 19:59 | ROOPDOC ---
[facility] Report Of Operation Report of Operation DATE OF PROCEDURE: 10/23/2019 PROCEDURE: Right femoral hemodialysis catheter placement under ultrasound guidance INDICATION: Acute tubular necrosis with an area, need for dialysis CONSENT: Consent was obtained from patient prior to procedure from son at bedside. All risks, benefits, alternatives were explained at length. All questions answered. Signed consent in chart. PROCEDURE NOTE: A time-out was called prior to procedure verifying patient, procedure, indication, and necessary treatment. The patient with placed in supine position for hemodialysis line placement. The patient's right groin was prepped and draped in sterile fashion. 1% lidocaine was used to anesthetize the surrounding area. A 20 cm 14 Dutch dialysis catheter was introduced into the right common femoral vein using Seldinger technique under ultrasound guidance. The catheter was removed completely over the guidewire and appropriate non-pulsatile blood was returned. Each lumen of the catheter was evacuated of air, flushed with sterile saline, and instilled with heparin. Catheter was sutured in place and a sterile dressing applied. The patient tolerated the procedure well with no apparent complications noted. Estimated blood loss, approximately 5 mL. SANAM ALVARENGA DO Oct 23, 2019 12:08
[2019-10-23] MEDS: amLODIPine 5 MG TAB PO SCH (20:21)
[2019-10-23] MEDS: **NOTE PATIENT COMMENT** MISC XX SCH (21:29)
[2019-10-23] MEDS: BENZONATATE 100 MG CAP PO SCH (23:56)
[2019-10-24] VITALS (48 sets, daily range): BP systolic 104–176; BP diastolic 51–100; O2SAT 99
[2019-10-24] MEDS: SODIUM CHLORIDE HYPERTONIC 3% 15ML NEB SOL INH SCH ×6 (04:14→23:44)
[2019-10-24 07:27] LABS: HEMATOCRIT 28.3 % (36.0-47.0); HEMOGLOBIN 8.9 g/dl (12.0-15.5); MEAN CORPUSCULAR HEMOGLOBIN 27.2 pg (27.0-33.0); MEAN CORPUSCULAR HGB CONC 31.4 g/dl (32.0-36.5); MEAN CORPUSCULAR VOLUME 86.5 fl (80.0-96.0); PLATELET COUNT, AUTOMATED 439 10^3/uL (150-450); RED BLOOD COUNT 3.27 10^6/uL (4.00-5.40)
[2019-10-24] MEDS: HumaLOG INSULIN (NovoLOG) PER UNIT SC SCH ×4 (07:30→21:00)
[2019-10-24] MEDS: ACETYLCYSTEINE 20% 4 ML VIAL (200MG/ML) INH SCH ×2 (07:39→20:00)
[2019-10-24] MEDS: LEVALBUTEROL 1.25 MG/0.5 ML CONCENTRATE NEB NEB PRN ×4 (07:39→20:00)
[2019-10-24 07:55] LABS: ALBUMIN 1.8 GM/DL (3.2-5.2); BILIRUBIN,TOTAL 0.5 MG/DL (0.2-1.0); CALCIUM LEVEL 7.7 MG/DL (8.8-10.2); CREATININE FOR GFR 2.12 MG/DL (0.55-1.30); GLOMERULAR FILTRATION RATE 24.1 (>39); MAGNESIUM LEVEL 2.5 MG/DL (1.8-2.4); PHOSPHORUS LEVEL 3.5 MG/DL (2.5-4.9); POTASSIUM SERUM 4.5 MEQ/L (3.5-5.1); TOTAL PROTEIN 6.7 GM/DL (6.4-8.2)
--- NOTE | 2019-10-24 08:11 | REP ---
Portable chest, 07:03 a.m., single AP view the patient semi upright: Comparison is 10/23/2027, 04:29 p.m.: The bibasilar parenchymal densities are unchanged. The thickening of the right minor fissure is unchanged. Cardiac size is enlarged, unchanged. The right IJ pacemaker tip is unchanged in position. The left thoracotomy tube is unchanged in position. Impression: No interval change Electronically Signed by Long Lion MD 10/24/2019 08:02 A
[2019-10-24] MEDS: AMIODARONE 200 MG TAB (PACERONE) PO SCH ×2 (08:46→13:29)
[2019-10-24] MEDS: BENZONATATE 100 MG CAP PO SCH ×3 (08:46→21:53)
[2019-10-24] MEDS: amLODIPine 5 MG TAB PO SCH ×2 (08:46→21:00)
[2019-10-24] MEDS: MOM 30ML SUSPENSION UDC PO SCH (08:47)
[2019-10-24] MEDS: FLUCONAZOLE 100 MG TAB PO SCH (08:47)
[2019-10-24] MEDS: DOCUSATE SODIUM 100 MG CAP PO SCH ×2 (08:47→21:00)
[2019-10-24] MEDS: NYSTATIN CREAM 15 GM EXT SCH ×3 (08:47→21:53)
[2019-10-24] MEDS ORDERED: CALCIUM GLUCONATE 1,000 MG, VIAL MATE ADAPTER 1 EACH in NS 100 ML IV ONE (09:00)
[2019-10-24] MEDS ORDERED: CALCIUM GLUCONATE 1,000 MG in NS 100 ML IV ONE (09:01)
--- NOTE | 2019-10-24 12:22 | IPN ---
DATE: 10/24/2019 This is now the 11th postoperative day status post tube pericardiostomy and pericardial window for a pericardial effusion and tamponade. Over the past 48 hours she has had again some very significant involvement with again intermittent episodes of asystole which can last up to now [address] Steven placed a temporary pacemaker in her on Friday evening. That has been basically resolved with some adjustments of the pacemaker lead. She is still awake and alert. She is also on ultrafiltration dialysis. It is unclear exactly how much was taken off yesterday, the rumor is 800 mL. The intakes and outputs are not recorded. Her vital signs show a maximum temperature (T-max) of 98.2 with a heart rate that is constant at 70 in a paced rhythm with respiratory rate of 18-24 without the use of accessory muscles who is 100% saturated on 2 liters nasal cannula and whose blood pressures range between 170/70 to 139/75. Her intake and output are not reliable being recorded as 654 in and 402 out for a positivity of 252 mL. She put out 272 mL in urine, 130 mL from her chest tube output which is almost identical to yesterday's 125 mL. She weighs 71.3 kilos today compared to 75.3 kilos yesterday. Hopefully the weight is indicative of a negative fluid balance. On physical examination, her lungs show rales and rhonchi on both sides. Her morbid obesity precludes percussion. Cardiac exam shows very distant heart sounds, I do not hear any murmurs, clicks, gallops or rubs. I cannot feel her point of maximum impulse (PMI) through her obesity. Abdomen is soft and nontender, and she has occasional hypoactive bowel sounds. I cannot appreciate hepatomegaly from her morbid obesity. Extremities show 2+ pretibial edema on the left, none of the right. The differential swelling of the upper extremities is still marginally present with the right being greater than the left. Skin is warm, dry and perfused without cyanosis or mottling including that of the nail beds and knees. Neck is supple. Patient's site has a slow ooze. Trachea is midline. There is no jugular venous distention (JVD) that I can appreciate. Mouth shows her mucous membranes to be pink and moist. Lips and commissures are without lesions. There is no thrush. Eyes show her pupils to be equal and reactive. Extraocular movements intact. Sclerae nonicteric. Neurologic shows gross motor and gross sensation intact and she is awake and alert. Psychiatric showed her to be awake, alert and can answers questions. Her white count today is 18.0 which is unchanged from yesterday, but down from the maximum of 24.1 3 days ago. Hemoglobin and hematocrit are 8.9 and 28.3 respectively, unchanged from yesterday with a platelet count of 439. There is no differential on her today. Electrolytes are normal with a BUN and creatinine of 34 and 2.12 reflecting her dialysis. I was under the impression that she is on ultrafiltration, but she may also have added dialysis decreasing her creatinine. Glucose is 98. Calcium is 7.7 with an albumin of 1.8, magnesium 2.0, and a phosphorous of 3.5. Her chest x-ray today is actually rather improved. I can now seen the left diaphragm. I can still see come air bronchograms, but they are not as prominent as they were a few days ago. She still has a diffuse haze on the right side which I suspect is a small pleural effusion. It is done portably of course. IMPRESSION: 1. Pericardial effusion with tamponade relieved with tube pericardiostomy and pericardial window, postoperative day #11. 2. Morbid obesity. 3. Asystole pauses resolved now with a temporary pacemaker. 4. Preserved left ventricular function, but very poor right ventricular function with pulmonary artery pressures of estimated 85. 5. Rheumatoid arthritis. 6. Hypertension. 7. Right side heart failure. 8. Acute renal failure requiring ultrafiltration. 9. Pulmonary hypertension. 10. Left pleural effusion resolved with a chest tube. 11. Right pleural effusion, continuing, but probably small. 12. Upper extremity deep vein thrombosis. 13. Infiltrative process of the left lower lobe, improved. 14. Diabetes. 15. Possible left lower extremity deep venous thrombosis (DVT). 16. Hypertension. 17. Prior atrial fibrillation with rapid ventricular response (RVR). PLAN AND DISCUSSION: I will remove her chest tube today. I have redressed her pacemaker insertion site. Dr. Tsang is going to order a ultrasound of her left lower extremity. Her main underlying problem is her right heart failure and extreme pulmonary hypertension probably secondary to sleep apnea. She is continuing on continuous positive airway pressure (CPAP), but I do not think this is going to be a easily reversible process considering her body habitus. I am hoping that we will be able to place a permanent pacemaker in her soon. I do not think that she has an underlying infection with her white count being a stress reaction. I am hoping now that she will continue to have a heart rate and consistent blood pressure that her kidneys will return to somewhat functional status. I will put on hold the pleural tap that I considered last week on the right side hoping that the ultrafiltration and eventual improvement in her kidney function will take care of the pleural effusion. I do not think that represents and infection.
--- NOTE | 2019-10-24 12:50 | REP ---
Left lower extremity deep vein duplex ultrasound: The deep veins demonstrate normal compression, normal Doppler color flow and normal Doppler waveforms with respiration and augmentation from the popliteal vein to the common femoral vein. Impression: There is no left lower extremity deep vein thrombus. Electronically Signed by Long Lion MD 10/24/2019 12:41 P
--- NOTE | 2019-10-24 15:09 | IPN ---
CARDIOLOGY PROGRESS NOTE (Covering for Dr. Sandoval) DATE: 10/24/2019 SUBJECTIVE: The patient tends to feel better today, having received dialysis the past 24 hours with impressive reduction in her weight by approximately 4 kg. Some neck stiffness related to manipulation of her central line site, but no chest discomfort. Remains unaware of her heart action. OBJECTIVE: Pleasant, obese, elderly lady, lying comfortably with head of bed elevated 30 degrees. Heart rate 70 beats per minute and regular. Paced blood pressure 139/54, respiratory rate 18 with oxygen saturation 97% on 1 liter by nasal prongs. Afebrile. Slight pallor but no cyanosis. No icterus. Trachea midline. Neck veins somewhat challenging but appear to be elevated on the left side of her neck (has a right neck temporary pacemaker with dressing). Increased anteroposterior chest diameter with fewer inspiratory rales. No expiratory wheezes. Apical impulse not palpable. Heart sounds distant. Soft abdomen. Still has impressive pitting edema of her entire lower extremities and her forearms, but this is improved from yesterday. CERTIFIED MEDICAL BILLER: Currently shows appropriate ventricular demand pacing. Yesterday had recurrent runs of monomorphic ventricular tachycardia that responded to dialysis and amiodarone therapy. Turning her pacemaking rate down to 30, she has spontaneous sinus beats at 42 bpm. BLOOD WORK: Hemoglobin today is stable at 8.9. White blood cell count appears to be slightly less than yesterday at 18,000. Normal platelet count. Electrolytes today were normal. With her dialysis, her BUN has dropped from 103 yesterday morning to 34 this morning. Creatinine has dropped from 6.8 yesterday to 2.1 today. Fasting glucose was 98. Magnesium level was 2.5. Albumin remains soft at 1.8 IMPRESSION/PLAN: 1. Complete heart block/temporary pacemaker in situ: Interestingly, today does have underlying marked sinus bradycardia with a 1:1 atrioventricular (AV) conduction, but a rate that is only 40 bpm. Intrinsic intracardiac electrograms were up to 10 mV. Pacing threshold at this time is 2 volts. Hoping to at least temporarily foster spontaneous electrical activity with AV conduction. I have withheld her amiodarone. Pending on her continued clinical status, we will consider implantation of a permanent dual-chamber pacemaker at some point later this week. 2. Ventricular tachycardia: I have no clear explanation for the development of this tachyarrhythmia. Yesterday, her chest x-ray showed stable temporary pacer lead position in the right ventricular apex. Her electrolytes were in balance and with dialysis, her congested state was improving. She did respond to intravenous (IV) and oral amiodarone therapy. As mentioned above, I am hoping to be able to stop this at this time. She will remain on close EKG monitoring. 3. Heart failure (diastolic dysfunction/acute on chronic): Continues to have gross anasarca, but has made impressive headway with her low continuous hemodialysis. In light of her ventricular tachyarrhythmias yesterday, low-dose dopamine and dobutamine were discontinued. Her current blood pressure is fine without them. 4. Pericardial effusion/post pericardial window: No pericardial rub. Her current congested state is not related to her pericardium but hypertensive and pulmonary heart disease. 5. Hypertensive heart disease (benign without heart failure): Current blood pressure is adequately controlled with her dialysis and low-dose amlodipine. 6. Cor pulmonale/right heart failure: As mentioned, continues to have impressive systemic edema. Oxygenation has significantly improved with dialysis. We will continue to monitor closely with you and appreciate the opportunity to participate in her care.
[2019-10-24] MEDS: HEPARIN DRIP 25,000 UNITS in IV 1 EA IV SCH (16:13)
--- NOTE | 2019-10-24 16:59 | IPN ---
DATE: 10/24/2019 Mrs. More is seen this morning on her bedside. Continuous renal replacement therapy (CRRT) was started yesterday afternoon due to oliguric acute renal failure, significant hypervolemia and respiratory insufficiency. The patient has history of recent pericardial effusion status post pericardial window and a chest tube. She also had a temporary pacemaker placed due to long pauses of asystole. Her pacemaker was adjusted yesterday and has been functioning. The patient is feeling very cold today and her temperature has been in low 90s. She has multiple blankets on her right now. She remains oliguric with minimal urine output. Chest tube is not draining much today. PHYSICAL EXAMINATION: Temperature 96.5 degrees Fahrenheit, respiratory rate 18 per minute and blood pressure 132/60 mmHg, oxygen saturation 98% on 1-2 liters of oxygen. Her head is atraumatic and facial edema is slightly better today. She has a temporary pacemaker lead in her right side of neck.. Her heart sounds are irregular in rhythm and without a pericardial friction rub. Left-sided chest tube is in place. Lungs have diminished breath sounds bilaterally. Abdomen: Soft and nontender and bowel sounds are present. Extremities: Without any cyanosis or clubbing. Generalized edema is better compared with yesterday. Neurologically, she is awake and without a focal deficit. Today's labs show WBC count 8.0, hemoglobin 8.9 and hematocrit 28.3. Platelets 439. Sodium 136, potassium 4.5, CO2 29, BUN 34 and creatinine 2.12. Glucose 98 and calcium 7.7. Ionized calcium is 4.4. Phosphorus 3.5 and magnesium 2.5. PROBLEMS: 1. Oliguric acute renal failure. The patient is currently on CRRT, which is functioning very well and her BUN and creatinine have improved significantly. We will continue with the same for next 24 hours and then reevaluate her. 2. Hypervolemia and congestive heart failure. Volume status is improving nicely and we will continue to remove fluid, about 50 mL per hour as long as her mean arterial pressure is about 65. She is tolerating fluid removal well so far. 3. Hyponatremia. She did have mild hypernatremia due to acute renal failure and hypervolemia and it has improved to normal range stay. 4. Recurrent asystole with long pauses. The patient has a temporary pacemaker which seems to be functioning better today. She is being followed by cardiology. She did have an episode of ventricular tachycardia yesterday and was given amiodarone. 5. Anemia. At present, her anemia is stable and does not need any urgent intervention. All in all, from a renal standpoint, the patient seems to be doing well on current prescription of CRRT. Her CRRT orders are being renewed for next 24 hours. Critical care time spent on the bedside was 32 minutes, during which no procedures were performed.
[2019-10-24 18:01] LABS: HEMATOCRIT 28.2 % (36.0-47.0); HEMOGLOBIN 8.8 g/dl (12.0-15.5); MEAN CORPUSCULAR HEMOGLOBIN 26.7 pg (27.0-33.0); MEAN CORPUSCULAR HGB CONC 31.2 g/dl (32.0-36.5); MEAN CORPUSCULAR VOLUME 85.7 fl (80.0-96.0); PLATELET COUNT, AUTOMATED 454 10^3/uL (150-450); RED BLOOD COUNT 3.29 10^6/uL (4.00-5.40); WHITE BLOOD COUNT 20.6 10^3/uL (4.0-10.0)
[2019-10-24 18:27] LABS: CALCIUM LEVEL 7.5 MG/DL (8.8-10.2); CREATININE FOR GFR 1.54 MG/DL (0.55-1.30); GLOMERULAR FILTRATION RATE 34.9 (>39); MAGNESIUM LEVEL 2.3 MG/DL (1.8-2.4); PHOSPHORUS LEVEL 2.7 MG/DL (2.5-4.9); POTASSIUM SERUM 4.2 MEQ/L (3.5-5.1)
[2019-10-24] MEDS: CALCIUM GLUCONATE 1,000 MG in NS 100 ML IV SCH ×2 (18:49→21:52)
[2019-10-24] MEDS: NYSTATIN 100,000 UNITS/GM TOPICAL PWD 15 GM TOP PRN (21:53)
[2019-10-24] MEDS: **NOTE PATIENT COMMENT** MISC XX SCH (21:53)
--- NOTE | 2019-10-24 22:47 | IPNPDOC ---
Date Seen The patient was seen on 10/24/19. Progress Note SUBJECTIVE: Patient seen and examined. No acute events overnight. Patient with temporary pacer in place. Patient currently pacing at a rate of 70. CRRT is currently on going with -780mL since initiation of CRRT yesterday afternoon. Patient is awake. She states she is doing "already". She denies chest pain, shortness of breath, abdominal pain, nausea and vomiting. Patient is currently eating bite of breakfast with aid of nurse. Left chest tube with minimal pleural fluid drainage overnight. Brief Hospital Course: Patient is a 78 year old female who presented to the ED on 10/13/2019 after a mechanical fall. On admission, patient was noted to have a large pericardial effusion with signs of tamponade and was taken urgently to the OR for pericardial window. Post-, patient in Afib with RVR and was given beta-hank and cardioversion. Shortly after, patient in asystole requiring chest compressions. (please sleep code sheet for details). Patient recovered following arrest and was able to be extubated without any noteable changes in mentation. On 10/21, patient an additional 1 minute asystolic pause that spontaneously resolved. Patient with multiple episodes of prolonged sinuses pauses, concerning for complete heart block. Temporary pacemaker placed 10/22/2019. During course of stay, patient with persistent diffuse edema and bilateral pleural effusion s/p chest tube placement on the left. Patient with decreased urine output and worsening kidney function throughout hospital stay. She is now anuric with ATN. CRRT initiated 10/23/2019 OBJECTIVE PHYSICAL EXAMINATION at time of examination 0800. VITAL SIGNS: Please see below. GENERAL: Alert and oriented to person and place, in no acute distress, appears slightly improved for prior HEENT: Normocephalic atraumatic, transvascular Cordis with pacemaker insertion noted on right neck. Blood noted to be oozing from dressing CARDIOVASCULAR: Paced rhythm with heart rate in the 70s, diffuse edema of upper and lower extremities, midline surgical scar noted RESPIRATORY: Decreased breath sounds on the right chest tube placement on the left ABDOMINAL: Soft, nontender, nondistended, positive bowel sounds EXTREMITIES: Spontaneously moves all 4 extremities but decreased strength throughout NEUROLOGICAL: Alert and oriented 2, without focal deficits noted SKIN: Warm and dry. LABORATORY DATA, IMAGING STUDIES, MICROBIOLOGY: Please see below. ASSESSMENT AND PLAN: # Asystolic cardiac arrest with recurrent episodes of cardiac pause, due to complete heart block -Temporary pacemaker placed 10/22, apply surgicel to site of insertion - Amidoarone discontinued - Will need permanent pacemaker prior to discharge depending on life expectancy - Given chronic comorbidities and overall poor long-term prognosis, palliative care was consulted - Discussed with cardiology # Acute hypoxemic and hypercapnic respiratory failure S/P cardiac arrest/pause - s/p extubation 10/15, secondary to fluid overload with bilateral pleural effusions - Chest tube in place on left removed today - CRRT for additional fluid removal #ATN on CKD 3 -Likely cardiorenal syndrome in the context of poor renal perfusion in setting of heart block - Avoid nephrotoxic agents -Urine culture with the yeast species, continue Diflucan for 14 days -CRRT started, continue labs every 6 hours to monitor electrolytes - Nephrology following, discussed with nephrology #UTI -Continue Diflucan however we will renally dose it 100 mg daily # Acutely decompensated systolic and diastolic CHF -Titrate oxygen to keep SPO2 greater than 92% - Beta hank hold for complete heart block, GIFTY inhibitor/ARB for HTN - Strict I/O, daily wt, 2L fluid restriction #Paroxysmal Atrial Fibrillation - Will start heparin gtt, monitor for signs of bleeding #Persistent leukocytosis - Suspect a leukymoid reaction with slight deccrease in WBC and neutrophil count. - Anticipate improvement with increased perfusion #Bilateral Pleural Effusion - Left pleural effusion improved with chest tube removed today - Discussed with CT surgery #Pericardial effusion with impending tamponade, exudative - s/p pericardial window 10/13 - Likely related to fluid overload, however, autoimmune is a consideration - CT surgery following #Diabetes mellitus, type 2 - A1C = 8.1%. - Continue sliding scale insulin #Candidasis - Nystatin powder and cream to affect skin folds #Pulmonary hypertesnion - Strive for negative fluid balance - Potential from long-standing history of sleep apnea. We will continue CPAP at night #Right upper extremity DVT -Heparin gtt resumed # Hypertension - Controlled at this time #RA - On remicade at home #Morbid Obesity - Will need education with clinical improvement #Weakness and deconditioning -Will need PT/OT when transvenous pacer removed and patient no longer bedrest Resolved Hospital Problems: Afib with RVR Metabolic encephalopathy Diet: Renal diet DVT/GI ppx: Heparin gtt, GI ppx not indicated at this time L/T/D: Peck catheter (10/21/2019), right IJ transvenous pacemaker (10/22), right femoral HD catheter (10/23), prior left upper extremity PICC Drips: None CODE STATUS: DNR/DNI. Dispo: Continue to monitor in the ICU. Patient with underlining heart block requiring intravenous pacemaker patient also with ATN requiring 1:1 nursing for CRRT. Critical Care Time: 35 minutes. Time spent immediately at bedside evaluation patient, interpreting labs and monitoring interventions. Billin VS, I&O, 24H, [facility] Vital Signs/I&O Vital Signs Date Time Temp Pulse Resp B/P (MAP) Pulse Ox O2 Delivery O2 Flow Rate FiO2 10/24/19 21:00 71 135/58 10/24/19 20:02 99 Nasal Cannula 1.0 10/24/19 12:31 98.0 22 10/23/19 07:00 50 I&O- Last 24 Hours up to 6 AM 10/24/19 06:00 Intake Total 534 ml Output Total 867 ml Balance -333 ml Laboratory Data 24H LABS Laboratory Tests 2 10/24/19 07:11: Nucleated Red Blood Cells % (auto) 0.2H, Activated Partial Thromboplast Time 36.7, Anion Gap 3L, Glomerular Filtration Rate 24.1L, Calcium Level 7.7L, Whole Blood Ionized Calcium 4.4L, Phosphorus Level 3.5#, Magnesium Level 2.5H, Total Bilirubin 0.5, Aspartate Amino Transf (AST/SGOT) 15, Alanine Aminotransferase (ALT/SGPT) 18, Alkaline Phosphatase 52, Total Protein 6.7, Albumin 1.8L, Albumin/Globulin Ratio 0.37L 10/24/19 07:36: Bedside Glucose (Misc Panel) 88 10/24/19 12:43: Bedside Glucose (Misc Panel) 111H 10/24/19 16:51: Bedside Glucose (Misc Panel) 130H 10/24/19 17:50: Nucleated Red Blood Cells % (auto) 0.4H, Anion Gap 2L, Glomerular Filtration Rate 34.9L, Calcium Level 7.5L, Whole Blood Ionized Calcium 4.2L, Phosphorus Level 2.7#, Magnesium Level 2.3 10/24/19 21:41: Bedside Glucose (Misc Panel) 102 CBC/BMP Laboratory Tests 10/24/19 07:11 10/24/19 17:50 Microbiology Microbiology 10/21/19 Urine Culture - Final, Complete Yeast Like Organism 10/17/19 Blood Culture - Final, Complete NO GROWTH AFTER 5 DAYS 10/17/19 Blood Culture - Final, Complete NO GROWTH AFTER 5 DAYS 10/17/19 Gram Stain - Final, Complete 10/17/19 Body Fluid Culture - Final, Complete 10/17/19 Anaerobic Culture - Final, Complete 10/17/19 Acid Fast Stain, Received Pending 10/17/19 Mycobacterial Culture, Received Pending 10/17/19 Fungal Smear, Received Pending 10/17/19 Fungal Culture, Received Pending 10/14/19 Gram Stain - Final, Complete 10/14/19 Sputum Culture - Final, Complete SANAM ALVARENGA DO Oct 24, 2019 22:14
[2019-10-25] VITALS (27 sets, daily range): BP systolic 99–169; BP diastolic 49–108
[2019-10-25] MEDS ORDERED: HEPARIN SOD (PORCINE) 5000 UNITS/ML VIAL (J1644 PER 1000UNITS) IV PRN (02:15)
[2019-10-25] MEDS: ONDANSETRON 4MG/2ML VIAL (J2405) IV PRN (02:50)
[2019-10-25] MEDS: SODIUM CHLORIDE HYPERTONIC 3% 15ML NEB SOL INH SCH ×5 (03:17→19:35)
[2019-10-25 05:15] LABS: HEMATOCRIT 26.9 % (36.0-47.0); HEMOGLOBIN 8.4 g/dl (12.0-15.5); MEAN CORPUSCULAR HEMOGLOBIN 26.9 pg (27.0-33.0); MEAN CORPUSCULAR HGB CONC 31.2 g/dl (32.0-36.5); MEAN CORPUSCULAR VOLUME 86.2 fl (80.0-96.0); PLATELET COUNT, AUTOMATED 424 10^3/uL (150-450); RED BLOOD COUNT 3.12 10^6/uL (4.00-5.40); WHITE BLOOD COUNT 18.8 10^3/uL (4.0-10.0)
[2019-10-25 05:38] LABS: CALCIUM LEVEL 7.3 MG/DL (8.8-10.2); CREATININE FOR GFR 1.3 MG/DL (0.55-1.30); GLOMERULAR FILTRATION RATE 42.4 (>39); MAGNESIUM LEVEL 2.6 MG/DL (1.8-2.4); PHOSPHORUS LEVEL 2.6 MG/DL (2.5-4.9); POTASSIUM SERUM 4.7 MEQ/L (3.5-5.1)
[2019-10-25] MEDS ORDERED: CALCIUM GLUCONATE 1,000 MG in NS 100 ML IV ONE ×4 (06:00→21:30)
[2019-10-25 06:39] LABS: ABG BASE EXCESS 0.3 (-2.0-2.0); ABG HCO3 25.3 MEQ/L (22.0-26.0); ABG PARTIAL PRESSURE CO2 42.9 mmHg (35.0-45.0); ABG PARTIAL PRESSURE O2 82.4 mmHg (75.0-100.0); ABG STANDARD HCO3 24.7 MEQ/L (22.0-26.0); ABG TOTAL CO2 26.6 MEQ/L (23.0-31.0); ABG pH (ARTERIAL) 7.389 UNITS (7.350-7.450)
[2019-10-25] MEDS: ACETYLCYSTEINE 20% 4 ML VIAL (200MG/ML) INH SCH ×2 (07:30→19:51)
--- NOTE | 2019-10-25 07:35 | REP ---
Portable chest, 06:20 a.m., single AP view the patient semi upright: The bibasilar densities are unchanged. The thickening of the right minor fissure has decreased. There is cardiomegaly, unchanged. The right IJ tube. This maker tip is unchanged in position. The left thoracotomy tube has been removed. There is no pneumothorax. Impression: The left thoracotomy tube has been removed. There is no pneumothorax. The right minor fissure thickening has decreased. There is no other interval change. Electronically Signed by Long Lion MD 10/25/2019 07:27 A
--- NOTE | 2019-10-25 07:59 | IPN ---
DATE: 10/25/2019 Mrs. More was relatively stable overnight. She continuous hemodialysis and tolerated it well. There were no significant arrhythmias, but she remained ventricularly paced virtually 100% of the time. She remains pleasantly confused. Vital signs: Blood pressure is 145/67, has been in similar range overnight, heart rate has been in 70s. She is afebrile. Saturation 95% on 1 liter of oxygen by nasal cannula. Fluid balance overnight was about 600 mL negative, which she made about a liter of dialysate and only less than 100 mL of urine. Her jugular venous pulse (JVP) is difficult to probate judge. I do not believe that I cannot accurately assess it. She has a bandage on the right side of her neck covering the insertion of the Cordis and temporary pacemaker. Lungs are diminished throughout. Her inspiratory effort is poor but I do not appreciate any crackles or wheezing. Abdomen is soft, I do not appreciate any guarding. Extremities: Lower extremities are free of significant edema. Neurologically she is alert but not oriented. LABORATORY: CBC revealed WBC count 18.8, hemoglobin 8.4, hematocrit 26 and 424,000. Basic metabolic panel: Sodium 139, potassium 4.7, BUN 19, creatinine 1.3, glucose 114. Magnesium 2.6. I manipulated the temporary pacemaker. She is currently ventricular paced at 70 beats per minute at VVI mode. Her threshold is less than 1 volt and she is pacing at 6 volts and the underlying rhythm is sinus bradycardia with ventricular rate around 42 beats per minute and wide QRS complex. ASSESSMENT/PLAN: Mrs. More is a 78-year-old female remains critically ill. She has a multitude of problems. She initially presented with pericardial effusion that was large and required pericardial window placement and in recovery period had some form of cardiac arrest that was darwin arrhythmic in nature shortly after she was cardioverted for atrial fibrillation with rapid ventricular rate (RVR). She then, during the week, develop complete heart block and required placement of the temporary ventricular pacemaker. The condition was further complicated by runs of ventricular tachycardia and she was receiving amiodarone that has since been discontinued. She remains volume overloaded and her mental status is still not good, but it seems to me that her condition, if anything has mildly improved since yesterday. From a cardiac perspective, she definitely will need a device; the question is what kind. She has borderline LV dysfunction to qualify for placement of defibrillator and she had some form of arrest even though it most likely was respiratory nature due to darwin arrhythmic mechanism. At this point, I think it is far from certain that she will survive the current episode and consequently it would be my recommendation to continue with temporary pacemaker for the next day or two until we see how her situation evolves then we will have to make a decision as to how to proceed from here. As far as the blood pressure is concerned, it is mildly elevated but she is undergoing dialysis with fluid removal and consequently I do expect improvement as more fluid is being removed. I am not going to give her any additional antihypertensive medications.
[2019-10-25] MEDS: FLUCONAZOLE 100 MG TAB PO SCH (08:42)
[2019-10-25] MEDS: HumaLOG INSULIN (NovoLOG) PER UNIT SC SCH ×4 (08:42→21:00)
[2019-10-25] MEDS: BENZONATATE 100 MG CAP PO SCH (08:43)
[2019-10-25] MEDS: amLODIPine 5 MG TAB PO SCH ×2 (08:44→20:28)
[2019-10-25] MEDS: MOM 30ML SUSPENSION UDC PO SCH (08:44)
[2019-10-25] MEDS: DOCUSATE SODIUM 100 MG CAP PO SCH (08:44)
[2019-10-25] MEDS ORDERED: FAMOTIDINE 20 MG TAB PO SCH (09:00)
[2019-10-25] MEDS ORDERED: DOCUSATE SODIUM 100 MG CAP PO PRN (10:45)
[2019-10-25] MEDS: IPRATROPIUM 0.5MG/ALBUTEROL 2.5MG INH SOL UD 3ML (DUONEB)(J7620) NEB PRN ×2 (11:03→19:35)
[2019-10-25] MEDS: NYSTATIN CREAM 15 GM EXT SCH (12:49)
--- NOTE | 2019-10-25 15:33 | IPNPDOC ---
Date Seen The patient was seen on 10/25/19. Progress Note SUBJECTIVE: Patient seen and examined. No acute events overnight. Patient continues with her temporary pacer at a rate of 70. Patient is having approximately 50 cc/hr of CRRT. She has no complaint at this time and denies any fevers, chills, chest pain, difficulty breathing, or abdominal pain. She does not seem to be eating very much and their is concern regarding whether her nutritional status is adequate at this point in time. Their are also reports of delirium from the . Brief Hospital Course: Patient is a 78 year old female who presented to the ED on 10/13/2019 after a mechanical fall. On admission, patient was noted to have a large pericardial effusion with signs of tamponade and was taken urgently to the OR for pericardial window. Post-, patient in Afib with RVR and was given beta-hank and cardioversion. Shortly after, patient in asystole requiring chest compressions. (please sleep code sheet for details). Patient recovered following arrest and was able to be extubated without any notable changes in mentation. On 10/21, patient an additional 1 minute asystolic pause that spontaneously resolved. Patient with multiple episodes of prolonged sinuses pauses, concerning for complete heart block. Temporary pacemaker placed 10/22/2019. During course of stay, patient with persistent diffuse edema and bilateral pleural effusion s/p chest tube placement on the left. Patient with decreased urine output and worsening kidney function throughout hospital stay. She is now anuric with ATN. CRRT initiated 10/23/2019. OBJECTIVE PHYSICAL EXAMINATION at time of examination 0800. VITAL SIGNS: Please see below. GENERAL: Alert and oriented to person and place, in no acute distress. Not oriented to year or POTUS. HEENT: Normocephalic atraumatic, transvascular Cordis with pacemaker insertion noted on right neck, dressing in place, not bleeding at this time. CARDIOVASCULAR: Paced rhythm with heart rate in the 70s, diffuse edema of upper and lower extremities, midline surgical scar noted RESPIRATORY: Clear to auscultation with diminished breath sounds appreciated bilaterally. ABDOMINAL: Soft, non-tender, non-distended, positive bowel sounds EXTREMITIES: Spontaneously moves all 4 extremities but decreased strength throughout NEUROLOGICAL: Alert and oriented 2, without focal deficits noted SKIN: Warm and dry. LABORATORY DATA, IMAGING STUDIES, MICROBIOLOGY: Please see below. ASSESSMENT AND PLAN: # Asystolic cardiac arrest with recurrent episodes of cardiac pause, due to complete heart block -Transvenous temporary pacemaker placed 10/22, apply surgical to site of insertion - Amidoarone discontinued - Will need permanent pacemaker prior to discharge depending on life expectancy - Given chronic comorbidities and overall poor long-term prognosis, palliative care was consulted - Discussed with cardiology, they are continuing to wait and see how she progresses clinically # Acute hypoxemic and hypercapnic respiratory failure S/P cardiac arrest/pause - S/p extubation 10/15, secondary to fluid overload with bilateral pleural effusions - S/p chest tube removed on 10/24/2019. - CRRT for additional fluid removal #ATN on CKD 3 requiring HD - Likely cardiorenal syndrome in the context of poor renal perfusion in setting of heart block - Avoid nephrotoxic agents - Urine culture with yeast species, continue Diflucan for 14 days (day 2 of 14) - CRRT started, continue labs every 6 hours to monitor electrolytes - Nephrology following, recommendations appreciated. #UTI -Continue renally dosed Diflucan at 100 mg daily # Acutely decompensated systolic and diastolic CHF -Titrate oxygen to keep SPO2 greater than 92% - Beta hank hold for complete heart block, GIFTY inhibitor/ARB for HTN - Strict I/O, daily wt, 2L fluid restriction #Paroxysmal Atrial Fibrillation - Will start heparin gtt, monitor for signs of bleeding #Persistent leukocytosis - WBC mildly improved, will obtain manual differential in tomorrows AM labs. - Anticipate improvement with increased perfusion #Bilateral Pleural Effusion - Right fissure thickening improved from day prior, chest tube removed yesterday. - CT surgery following. #Pericardial effusion with impending tamponade, exudative - s/p pericardial window 10/13 - Likely related to fluid overload, however, autoimmune is a consideration - CT surgery following #Diabetes mellitus, type 2 - A1C = 8.1%. - Continue sliding scale insulin #Pulmonary hypertension - Strive for negative fluid balance - Potential from long-standing history of sleep apnea. We will continue CPAP at night and while sleeping. #Right upper extremity DVT -Heparin gtt resumed # Hypertension - Controlled at this time #RA - On remicade at home #Morbid Obesity - Will need education with clinical improvement #Weakness and deconditioning -Will need PT/OT when transvenous pacer removed and patient no longer bed rest Resolved Hospital Problems: Afib with RVR Metabolic encephalopathy Candidasis Diet: Renal diet, dietary consult placed, calorie counts ordered, full nutritional assessment ordered. DVT/GI ppx: Heparin gtt, Pepcid PO BID for GI ppx given length of ICU stay L/T/D: Peck catheter (10/21/2019), right IJ transvenous pacemaker (10/22), right femoral HD catheter (10/23), prior left upper extremity PICC Drips: None. CODE STATUS: DNR/DNI. Dispo: Continue to monitor in the ICU. Patient with underlining heart block requiring intravenous pacemaker patient also with ATN requiring 1:1 nursing for CRRT. VS, I&O, 24H, [facility] Vital Signs/I&O Vital Signs Date Time Temp Pulse Resp B/P (MAP) Pulse Ox O2 Delivery O2 Flow Rate FiO2 10/25/19 12:00 98.2 72 19 146/67 (93) 94 Nasal Cannula 0.5 10/23/19 07:00 50 I&O- Last 24 Hours up to 6 AM 10/25/19 05:59 Intake Total 1118 ml Output Total 1137 ml Balance -19 ml Laboratory Data 24H LABS Laboratory Tests 2 10/24/19 16:51: Bedside Glucose (Misc Panel) 130H 10/24/19 17:50: Nucleated Red Blood Cells % (auto) 0.4H, Anion Gap 2L, Glomerular Filtration Rate 34.9L, Calcium Level 7.5L, Whole Blood Ionized Calcium 4.2L, Phosphorus Level 2.7#, Magnesium Level 2.3 10/24/19 21:41: Bedside Glucose (Misc Panel) 102 10/25/19 03:00: Activated Partial Thromboplast Time > 240.0*H 10/25/19 05:00: Nucleated Red Blood Cells % (auto) 0.4H, Anion Gap 4L, Glomerular Filtration Rate 42.4, Calcium Level 7.3L, Whole Blood Ionized Calcium 4.4L, Phosphorus Level 2.6, Magnesium Level 2.6H 10/25/19 06:35: Blood Gas Bicarbonate Standard 24.7, Arterial Blood pH 7.389, Arterial Blood Partial Pressure CO2 42.9, Arterial Blood Partial Pressure O2 82.4, Arterial Blood Total CO2 26.6, Arterial Blood HCO3 25.3, Arterial Blood Base Excess 0.3, Arterial Blood Oxygen Saturation 96.0 10/25/19 10:05: Activated Partial Thromboplast Time > 240.0*H 10/25/19 11:57: Bedside Glucose (Misc Panel) 94 CBC/BMP Laboratory Tests 10/24/19 17:50 10/25/19 05:00 Microbiology Microbiology 10/25/19 Gastrointestinal Tract Panel (PCR) - Final, Complete 10/21/19 Urine Culture - Final, Complete Yeast Like Organism 10/17/19 Blood Culture - Final, Complete NO GROWTH AFTER 5 DAYS 10/17/19 Blood Culture - Final, Complete NO GROWTH AFTER 5 DAYS 10/17/19 Gram Stain - Final, Complete 10/17/19 Body Fluid Culture - Final, Complete 10/17/19 Anaerobic Culture - Final, Complete 10/17/19 Acid Fast Stain, Received Pending 10/17/19 Mycobacterial Culture, Received Pending 10/17/19 Fungal Smear, Received Pending 10/17/19 Fungal Culture, Received Pending GME ATTESTATION GME ATTESTATION My faculty preceptor for this patient encounter was physically present during the encounter and was fully available. All aspects of the patient interview, examination, medical decision making process, and medical care plan development were reviewed and approved by the faculty preceptor. The faculty preceptor is aware and concurs with the plan as stated in the body of this note and will attest to such by his/her cosignature. ATTENDING NOTE Since seen and examined both independently and with resident. Agree with history, physical, and assessment and plan as described above except as otherwise noted below. Patient is awake, alert, and oriented 2 at this time. Nurse and son at bedside both reported intermittent confusion although patient's mentation is consistent compared to exam yesterday at this time. Patient remains in a paced rhythm with transient venous pacemaker in place with heart rate of 70. Inherent rate when pacemaker is sinus rhythm in the 40s. Patient continues to undergo CRRT with ultrafiltration. Patient has not negative over the last 24 hours but it remains approximately 500 mL positive cumulatively over the length of her hospital stay. Patient continues to remain largely anuric. Will need to discuss with family tomorrow regarding goals of care as initiation of permanent dialysis is likely given the extent of pre-existing chronic kidney disease. Assessment: 1. Asystolic cardiac arrest secondary to complete heart block status post ROSC 2. Acute hypoxic hypercapnic respiratory failure 3. ATN on CKD3 requiring CRRT 4. UTI on Diflucan 14 days 5. Paroxysmal atrial fibrillation on heparin drip 6. Right upper extremity superficial basilic vein thrombus 7. Moderate protein calorie malnutrition based on poor by mouth intake and evidence of muscle wasting on physical exam. Calorie count initiated CODE STATUS: DNR/DNI. We'll discuss with family tomorrow regarding additional interventions and treatment options including probable need for long-term dialysis. Disco. Continue to monitor in the ICU. Discussed plan with cardiology, nephrology, and CT surgery. Critical care time: 38 minutes. Time spent reviewing and interpreting labs, evaluating patient, and ingesting interventions including heparin drip. Time is exclusive of other billable procedures. Billin KEIRY AGUILAR DO Oct 25, 2019 13:29 SANAM ALVARENGA DO Oct 25, 2019 17:37
[2019-10-25] MEDS: HEPARIN DRIP 25,000 UNITS in IV 1 EA IV SCH (18:04)
[2019-10-25 18:44] LABS: IONIZED CALCIUM 4.3 MG/DL (4.5-5.3)
[2019-10-25 18:47] LABS: HEMATOCRIT 25.8 % (36.0-47.0); HEMOGLOBIN 8.1 g/dl (12.0-15.5); MEAN CORPUSCULAR HEMOGLOBIN 27.2 pg (27.0-33.0); MEAN CORPUSCULAR HGB CONC 31.4 g/dl (32.0-36.5); MEAN CORPUSCULAR VOLUME 86.6 fl (80.0-96.0); PLATELET COUNT, AUTOMATED 385 10^3/uL (150-450); RED BLOOD COUNT 2.98 10^6/uL (4.00-5.40); WHITE BLOOD COUNT 15.8 10^3/uL (4.0-10.0)
[2019-10-25 19:10] LABS: CALCIUM LEVEL 7.9 MG/DL (8.8-10.2); CREATININE FOR GFR 1.22 MG/DL (0.55-1.30); GLOMERULAR FILTRATION RATE 45.6 (>39); MAGNESIUM LEVEL 2.5 MG/DL (1.8-2.4); PHOSPHORUS LEVEL 2.4 MG/DL (2.5-4.9); POTASSIUM SERUM 4.4 MEQ/L (3.5-5.1)
[2019-10-25] MEDS: FAMOTIDINE 20 MG TAB PO SCH (20:26)
[2019-10-25] MEDS ORDERED: SODIUM PHOSPHATE INJ 15 MMOL in D5W 250 ML IV ONE ×2 (20:30→23:00)
--- NOTE | 2019-10-25 20:38 | CCN ---
DATE: 10/25/2019 Mrs. More is seen this morning on her bedside in intensive care unit. She continues with CRRT which has been functioning very well. The patient is feeling better this morning and her peripheral edema is improving. She has a DVT in her right upper extremity and also had a PICC line in her left arm which has been removed. The patient has no fever or chills. PHYSICAL EXAMINATION: Temperature 98.1 degrees Fahrenheit, heart rate 72 per minute and respiratory rate 24 per minute. Blood pressure 136/58 mmHg and oxygen saturation 97% on room air. Her head is atraumatic. Neck is supple and JVD difficult to be assessed. She has a temporary pacemaker lead on right side of neck. Has no oral thrush or ulcers. Heart sounds are irregular in rhythm and lungs have good bilateral air entry. Abdomen soft and nontender and bowel sounds are normal. Extremities without any cyanosis or clubbing. Peripheral edema is improving. Neurologically she is awake, alert and oriented times three. Today's labs show WBC count 18.8, hemoglobin 8.4 and hematocrit 26.9. Platelets 424. Sodium 139, potassium 4.7, CO2 29, BUN 19 and creatinine 1.30. Glucose 114 and calcium 7.3. Phosphorus is 2.6 and magnesium 2.6. Her chest x-ray shows some improvement in the fluid and her chest tube has been removed. PROBLEMS: 1. Acute renal failure. The patient remains anuric and we will continue with the CRRT on her bedside. This is working very well and her electrolytes have improved. Her volume status has also improved significantly and we will continue with variable rate of fluid removal depending upon her blood pressure. 2. Respiratory failure and volume overload. Her volume status is also improving with CRRT and currently we are removing about 50 mL/hour which is functioning very well. 3. Anemia. At present her anemia is stable and does not need any urgent intervention or transfusion. 4. Cardiac arrhythmias. The patient did have runs of ventricular tachycardia and asystole before and currently has a temporary pacemaker in place. She is being followed by cardiology. Her electrolytes including potassium and magnesium level are stable. 26 minutes off critical care time spent during which no procedures were performed.
[2019-10-25] MEDS: **NOTE PATIENT COMMENT** MISC XX SCH (21:00)
--- NOTE | 2019-10-25 21:32 | IPN ---
DATE: 10/25/2019 SUBJECTIVE: This is postop day 12 status post tube pericardiostomy and pericardial window for pericardial effusion and tamponade. Chest tube was removed yesterday on 10/24/2019. Ms. More was seen and examined this morning at bedside in the intensive care unit (ICU). She denied pain and acute distress. She is currently getting a breathing treatment. Overnight, she does not wear a continuous positive airway pressure (C-PAP) and when asked about it today, she said she will wear it today. When asked earlier this morning though, she states that she was in her eye doctor's office, but with further questioning, she understands she is at [facility] in the ICU bed. She does not understand why she is here, but she does understand she has a medical problem. She does describe some chest discomfort at the insertion of her chest tube on the left side. She states it is a stabbing pain in nature. She continues to be on continuous renal replacement therapy (CRRT) with ultrafiltration, for she has minimal urine output. She is tolerating the CRRT very well with no problem. Transcutaneous pacing has been well overnight. No asystole or any cardiac events. She maintained a heart rate of 71 throughout the evening. She was restarted on a heparin drip yesterday for her right upper extremity deep venous thrombosis (DVT). There was no overt bleeding noted. Her chest tube was removed yesterday with no problem. PHYSICAL EXAMINATION: VITAL SIGNS: Temperature 97.4, pulse 71, respiration rate 19, blood pressure 155/63 (93) pulse oximetry 97% on 1 liter of nasal cannula. INTAKE AND OUTPUT (I and O): Intake total 713. Output total 1172 mL with a balance of negative 459 mL. CRRT removal in the last 24 hours was 1082 mL. Her weight today is 73.4, which is up from 71.3 kilos from yesterday. GENERAL: This is a pleasant, 78-year-old female who does not appear in any respiratory distress, laying in a 45 degree angle in the ICU bed with a breathing treatment in place. No accessory muscle use. No jugular venous distention (JVD) noted. She does have a transvascular cordis with a pacemaker insertion on the right neck that is covered by bandage. No toya bleeding is noted on the bandage. CARDIOVASCULAR: She is transcutaneously paced at a rate of 71 beats per minute. Surprisingly, no audible murmurs or rubs. LUNGS: Diffuse upper respiratory rhonchi breath sounds are appreciated. Right lung sounds have improved, for you can hear some clear air movement in the left lower bases, with some adventitious upper respiratory lung sounds. CHEST: Chest tube insertion site is examined. No toya bleeding or oozing noted. Slightly tender to palpation. ABDOMEN: Soft, nontender, with positive bowel sounds in all four quadrants. EXTREMITIES: No lower extremity edema. She does have a right upper extremity DVT. LABORATORY DATA: Hematology: WBC 18.8, hemoglobin 8.4, hematocrit 26.9, platelets 424. Arterial blood gas (ABG): pH 7.38, pCO2 42.9, pO2 82.4, HCO3 25.23. Chemistry: Sodium 139, potassium 4.7, chloride 106, carbon dioxide 29, anion gap 4, BUN 19, creatinine 1.30, GFR 42.4, fasting glucose 114, calcium 7.3, ionized calcium 4.4, magnesium 2.6. MICROBIOLOGY: GI panel overnight was negative for any growth. Chest x-ray shows right minor fissure thickening has improved, possible improvement of the bibasilar densities on the left side, but it could be due to positioning. Relatively unchanged. Left thoracotomy tube has been removed. There is no pneumothorax noted. IMPRESSION: 1. Pericardial effusion with tamponade relieved with tube pericardiostomy and pericardial window, postoperative day #12. 2. Morbid obesity. 3. Asystole pauses resolved with a temporary pacemaker. 4. Preserved left ventricular function, but very poor right ventricular function and pulmonary artery pressure estimated at 85. 5. Rheumatoid arthritis. 6. Hypertension. 7. Right sided heart failure. 8. Acute renal failure requiring CRRT for ultrafiltration. 9. Pulmonary hypertension. 10. Left pleural effusion resolved after chest tube placement. 11. Right pleural effusion. 12. Right upper extremity DVT, restarted on heparin drip. 13. Infiltrative process of the left lower lobe, improved. 14. Diabetes. 15. Hypertension. 16. History atrial fibrillation with rapid ventricular response (RVR). PLAN/DISCUSSION: Ultrasound of the lower extremity yesterday was negative for a DVT. After the chest tube had been removed, patient has been tolerating it very well, saturating appropriately on nasal cannula with no respiratory distress. She continues to be on continuous positive air pressure at night, but she is not compliant at night. I reiterated the importance of wearing it at night when she sleeps and she states she will start to be compliant. Our main underlying problem, though, is her right-sided heart failure and extreme pulmonary hypertension secondary to her sleep apnea. At this current time, we will not be doing any pleural tap on the right side because she is on CRRT. Hopefully, the ultrafiltration will help with limiting this fluid. She has been restarted on a heparin drip for her right upper extremity DVT. We will continue to monitor her respiratory status and her kidney function to see if it improves with her underlying pulmonary issue. We will continue to follow along with the patient while she is admitted. NIGEL
[2019-10-26] VITALS (28 sets, daily range): BP systolic 103–155; BP diastolic 45–92; O2SAT 91–100
[2019-10-26] MEDS: IPRATROPIUM 0.5MG/ALBUTEROL 2.5MG INH SOL UD 3ML (DUONEB)(J7620) NEB PRN ×3 (01:22→19:50)
[2019-10-26] MEDS: SODIUM CHLORIDE HYPERTONIC 3% 15ML NEB SOL INH SCH ×7 (03:39→23:28)
[2019-10-26 05:39] LABS: IONIZED CALCIUM 4.4 MG/DL (4.5-5.3)
[2019-10-26 05:48] LABS: BASO # 0.1 10^3/uL (0.0-0.2); BASO % 0.6 % (0.0-1.0); EOS # 0.3 10^3/uL (0.0-0.5); EOS % 1.9 % (0.0-3.0); HEMATOCRIT 26.1 % (36.0-47.0); HEMOGLOBIN 8.1 g/dl (12.0-15.5); LYMPH # 1.6 10^3/uL (1.5-5.0); MONO # 1.4 10^3/uL (0.0-0.8); NEUTROPHILS # 12.4 10^3/uL (1.5-8.5); PLATELET COUNT, AUTOMATED 377 10^3/uL (150-450); WHITE BLOOD COUNT 15.8 10^3/uL (4.0-10.0)
[2019-10-26 06:59] LABS: CALCIUM LEVEL 7.7 MG/DL (8.8-10.2); CREATININE FOR GFR 1.01 MG/DL (0.55-1.30); GLOMERULAR FILTRATION RATE 56.7 (>39); MAGNESIUM LEVEL 2.4 MG/DL (1.8-2.4); PHOSPHORUS LEVEL 2.3 MG/DL (2.5-4.9); POTASSIUM SERUM 4.2 MEQ/L (3.5-5.1)
[2019-10-26] MEDS ORDERED: CALCIUM GLUCONATE 1,000 MG, VIAL MATE ADAPTER 1 EACH in NS 100 ML IV ONE (07:30)
[2019-10-26] MEDS: ACETYLCYSTEINE 20% 4 ML VIAL (200MG/ML) INH SCH ×2 (07:42→19:50)
[2019-10-26] MEDS: HumaLOG INSULIN (NovoLOG) PER UNIT SC SCH ×4 (08:09→21:00)
[2019-10-26] MEDS: FLUCONAZOLE 100 MG TAB PO SCH (08:10)
[2019-10-26] MEDS: amLODIPine 5 MG TAB PO SCH ×2 (08:11→21:00)
--- NOTE | 2019-10-26 08:53 | IPN ---
DATE: 10/26/2019 Mrs. More had a relatively uneventful night. She spent it on C-PAP. She continues to have hemodialysis with fluid removal. She has been making minimal amount of urine, only 55 mL yesterday and about 30 mL at midnight. Weight is recorded 71.9 kg. After removal of her C-PAP, it is apparent that she is alert and oriented and for the most part appropriate. She denies any chest pain or significant dyspnea. Blood pressure 113/62. Heart rate has been in the 70s. She is afebrile. Saturation is 100% on BiPap. Her fluid balance yesterday was recorded as positive about 260. She made about the 1100 mL through ultrafiltration and her intake was about 1400 mL. Her jugular venous pulse (JVP) is very difficult to district associate judge. I am unable to estimate it clinically at bedside. Lungs are reasonably clear, even though there are some diminished breath sounds over both bases. Heart exam reveals a regular rhythm. I do not appreciate any murmurs or gallop. Abdomen is soft and nontender. There is no significant peripheral edema. Neurologically, there is generalized weakness, but no focal signs. Laboratories: CBC: WBC 15.8, hemoglobin 8.1, hematocrit 26, platelet count 377,000. Basic metabolic panel is normal. Glucose 132. Phosphorus 2.3. Calcium 7.7. I interrogated her temporary pacemaker again. She remains with ventricular paced in VVI mode at 70 beats per minute. She continues to have excellent threshold, less than 1 volt and excellent sensing around 10 mV. She has underlying sinus bradycardia with ventricular rate of approximately 40 beats per minute which is unchanged since yesterday. ASSESSMENT/PLAN: Mrs. More is a 78-year-old female who has initially presented with pericardial effusion which was exudative in nature. The etiology is still not completely clear. The postoperative course was complicated by arrest that was bradyarrhythmic in nature. She subsequently had multiple episodes of paroxysmal atrial fibrillation and required temporary administration of various AV kailyn blocking agents and eventually also amiodarone. Subsequently though started having evidence for sick sinus syndrome with episodes of pauses exceeding many seconds. A temporary pacemaker was placed by Dr. Steven on 10/22/2019. She continues to be principally ventricular paced with underlying sinus bradycardia. At this point, we are awaiting her evolution of clinical status before making a decision regarding permanent pacemaker. Unfortunately, it is looking that she will be dialysis dependent. There will be a family meeting later today and hopefully some decisions will be made in this regard, otherwise her volume is controlled by dialysis.
[2019-10-26] MEDS: MOM 30ML SUSPENSION UDC PO SCH (09:00)
--- NOTE | 2019-10-26 09:21 | IPN ---
DATE OF SERVICE: 10/26/2019 This is postop day 13 for pericardiostomy and pericardial window for pericardial effusion and tamponade. The chest tube was removed on 10/24/2019. Ms. More was seen and examined this morning at bedside rounds in the intensive care unit (ICU). She continues to be on continuous renal replacement therapy (CRRT). Overnight, she was more compliant with her continuous positive airway pressure (C-PAP) and she was wearing it this morning during our exam. She was appropriately answering questions. She understood where she was. She states she has no discomfort or any pain. She just states to be feeling a little cold. She continues to have very minimal urine output and currently has CRRT set to remove 50 mL of fluid every hour. She is maintaining MAP above 70. She has been tolerating fluid removal with no problem. She continues to be on a pacemaker, maintaining a rate of 71-72 beats per minute. No other overnight events were reported per nursing. PHYSICAL EXAMINATION: VITAL SIGNS: Temperature 97.2, pulse 72, respirations 26, blood pressure 152/65, MAP 94, pulse oximetry 96% on room air. INTAKE AND OUTPUT (I and O): Intake total 1412. Output total 1147 mL. Balance of positive 265. Urine total was 55 mL with ultrafiltration of 1092 mL. GENERAL: This is a very pleasant, 78-year-old female laying in bed. She does not appear in acute distress. She does not appear to use any accessory muscles. She does have a cordis in place on the right neck covered with a bandage. Pacemaker site has a Tegaderm in place. No toya blood or discharge noted. CARDIOVASCULAR: Transcutaneously paced at 72 beats per minute. Surprisingly, no audible murmurs or rubs. LUNGS: Diffuse upper respiratory rhonchi breath sounds continue to be appreciated. Aeration at the base of the lungs has improved, but continues to be diminished. No dullness in percussion noted. ABDOMEN: Soft, nontender. Positive bowel sounds in all four quadrants. EXTREMITIES: No lower extremity edema. She does have a right upper extremity deep vein thrombosis (DVT). LABORATORY DATA: WBC 15.8, hemoglobin 8.1, hematocrit 26.1, platelets 377. Chemistry: Sodium 136, potassium 4.2, chloride 104, carbon dioxide 29, anion gap 3, BUN 14, creatinine 1.01, GFR 56.7, fasting glucose 132. IMAGING: No new imaging since 10/25/2019. IMPRESSION: 1. Pericardial effusion with tamponade relieved with pericardiostomy and pericardial window, postoperative day #13. 2. Morbid obesity. 3. Asystole pauses resolved with temporary pacemaker. 4. Preserved left ventricular function, but poor right ventricular function and pulmonary artery hypertension estimated at 85 mmHg. 5. Rheumatoid arthritis. 6. Hypertension. 7. Right sided heart failure. 8. Acute renal failure requiring CRRT for ultrafiltration. 9. Pulmonary hypertension. 10. Left pleural effusion resolved after chest tube placement. 11. Right pleural effusion. 12. Right upper extremity DVT, on heparin drip. 13. Infiltrative process of the left lower lobe. 14. Diabetes. 15. Hypertension. 16. History of atrial fibrillation with rapid ventricular response (RVR). PLAN AND DISCUSSION: From a cardiothoracic surgery point of view, the patient is postoperative day 13 from the pericardial window and pericardiostomy. Chest tube was removed yesterday for the pleural effusion. She is currently on CRRT to help with fluid removal. She continues to have poor urine output. At this rate, she appears to be possibly dialysis dependent. After discussions with Dr. Menjivar and Dr. Tsang, she will be having a goal of care conversation with the family later today to see if they would like to pursue with dialysis prison or not. If they want to have dialysis prison, then there is a possible placement of the pacemaker on . If not, we will have a discussion about possible hospice versus palliative care consult. Will continue to follow along with the patient while she is admitted.
[2019-10-26] MEDS ORDERED: SODIUM PHOSPHATE INJ 15 MMOL in D5W 250 ML IV ONE (10:00)
--- NOTE | 2019-10-26 10:51 | REP ---
Portable chest, 10:32 a.m., single AP view with the patient sitting: Comparison is 10/25/2019. The bibasilar densities are unchanged. The mild thickening of the minor fissure is unchanged. Cardiomegaly is unchanged. The right IJ temporary pacemaker is unchanged. Impression: There is no interval change. Electronically Signed by Long Lion MD 10/26/2019 10:44 A
--- NOTE | 2019-10-26 14:56 | IPN ---
DATE: 10/26/2019 Mrs. More is seen at this morning on her bedside in intensive care unit. Continuous renal replacement therapy (CRRT) is in progress and she has been tolerating it very well. We have been able to remove 50 mL/hour since we started. Hemodynamically, she has remained stable and her temporary pacemaker is functioning. The patient is much more alert and able to answer questions. Her granddaughter is present in the room today. She still has no urine output. PHYSICAL EXAMINATION: Temperature 96.2 degrees Fahrenheit, heart rate 71 per minute and respiratory rate 26 per minute. Blood pressure 131/60 mmHg and oxygen saturation 93% on room air. Head is atraumatic. Neck is supple and jugular venous distention (JVD) difficult to be assessed. She has a port for temporary pacemaker in her right internal jugular vein. There is no oral thrush or ulcers. Heart sounds are regular and without a pericardial friction rub. Lungs with diminished breath sounds at the dependent parts. Abdomen is soft, somewhat protuberant and nontender. Bowel sounds are normal. Extremities: Without any cyanosis or clubbing. Peripheral edema has improved significantly but still present on all four limbs. Neurologically she is awake, alert and able to answer questions appropriately. Today's labs show WBC count 15.8, hemoglobin 8.1 and hematocrit 26.1. Platelets 377. Sodium 136, potassium 4.2, CO2 29, BUN 14 and creatinine 1.01. Calcium level 7.7, phosphorus 2.3 and magnesium 2.4. PROBLEMS: 1. Oliguric acute renal failure superimposed on chronic kidney disease. The patient is being dialyzed with a CRRT on her bedside. She has done very well so far. I have discussed with the patient and explained to her about potential need for ongoing dialysis and possible permanent dialysis. She feels that she has no other choice and will continue with dialysis. Her granddaughter was also present on the bedside and she repeated the same question and the patient answered to continue with dialysis. 2. Congestive heart failure: Volume status has improved significantly and we will continue to remove 50 per hour of fluid with CRRT as long as she is tolerating it well. 3. Anemia: Anemia is unchanged over last 24 hours. Though no emergent need for transfusion at present. 4. Cardiac arrhythmias: The patient has a temporary pacemaker in place and we are waiting for family and Dr. Steven to decide if she will be a candidate for a permanent pacemaker. I have discussed this plan of care with the patient and her granddaughter. Dr. Tsang plans to meet with the family later and I have also discussed with Dr. Tsang. 26 minutes of critical care time spent on the bedside during which no procedures were performed.
--- NOTE | 2019-10-26 15:52 | IPNPDOC ---
Date Seen The patient was seen on 10/26/19. Progress Note SUBJECTIVE: Patient seen and examined. No acute events overnight. Patient continues with her temporary pacer at a rate of 70. Patient continues to receive CRRT and is agreeable to dialysis moving forward as well as having a permanent pacemaker placed. She denies any complaints at this time outside of feeling cold including chest pain, difficulty breathing, nausea or vomiting. She reports she is doing well overall. Brief Hospital Course: Patient is a 78 year old female who presented to the ED on 10/13/2019 after a mechanical fall. On admission, patient was noted to have a large pericardial effusion with signs of tamponade and was taken urgently to the OR for pericardial window. Post-, patient in Afib with RVR and was given beta-hank and cardioversion. Shortly after, patient in asystole requiring chest compressions. (please sleep code sheet for details). Patient recovered following arrest and was able to be extubated without any notable changes in mentation. On 10/21, patient an additional 1 minute asystolic pause that spontaneously resolve d. Patient with multiple episodes of prolonged sinuses pauses, concerning for complete heart block. Temporary pacemaker placed 10/22/2019. During course of stay, patient with persistent diffuse edema and bilateral pleural effusion s/p chest tube placement on the left. Patient with decreased urine output and worsening kidney function throughout hospital stay. She is now anuric with ATN. CRRT initiated 10/23/2019. Patient agreeable to having pacemaker placed as well as to initiating dialysis permanently. OBJECTIVE PHYSICAL EXAMINATION at time of examination 0800. VITAL SIGNS: Please see below. GENERAL: Alert and oriented to person, place, president not oriented to ye ar/month. In no acute distress resting comfortably in her bed. HEENT: Normocephalic atraumatic, transvascular Cordis with pacemaker insertion noted on right neck, dressing in place, not bleeding. CARDIOVASCULAR: Paced rhythm with heart rate in the 70s, diffuse edema of upper and lower extremities, midline surgical scar noted RESPIRATORY: Clear to auscultation with diminished breath sounds appreciated bilaterally. ABDOMINAL: Soft, non-tender, non-distended, positive bowel sounds EXTREMITIES: Spontaneously moves all 4 extremities but decreased strength throughout NEUROLOGICAL: A&O2, without focal deficits noted SKIN: Warm and dry. LABORATORY DATA, IMAGING STUDIES, MICROBIOLOGY: Please see below. ASSESSMENT AND PLAN: # Asystolic cardiac arrest with recurrent episodes of cardiac pause, due to complete heart block -Transvenous temporary pacemaker placed 10/22, plans for permanent pacemaker to be placed per cardiology. - Given chronic comorbidities and overall poor long-term prognosis, palliative care was consulted - Discussed with cardiology, they are continuing to wait and see how she progresses clinically # Acute hypoxemic and hypercapnic respiratory failure S/P cardiac arrest/pause - S/p extubation 10/15, secondary to fluid overload with bilateral pleural effusions - S/p chest tube removed on 10/24/2019. - CRRT for additional fluid removal #ATN on CKD 3 requiring HD - Likely cardiorenal syndrome in the context of poor renal perfusion in setting of heart block - Avoid nephrotoxic agents - Urine culture with yeast species, continue Diflucan for 14 days (day 3 of 14) - CRRT started, continue labs every 6 hours to monitor electrolytes. Nephrology updated that patient is amenable to starting permanent dialysis. Dialysis catheter placement per nephrology. - Nephrology following, recommendations appreciated. #Moderate protein calorie malnutrition - calorie counts ordered, dietary recommendations appreciated - DASH diet ordered, dietary not recommending further calorie interventions at this time. #UTI -Continue renally dosed Diflucan at 100 mg daily # Acutely decompensated systolic and diastolic CHF -Titrate oxygen to keep SPO2 greater than 92% - Beta hank hold for complete heart block, GIFTY inhibitor/ARB for HTN - Strict I/O, daily wt, 1.5L fluid restriction #Paroxysmal Atrial Fibrillation - Continue heparin gtt, monitor for signs of bleeding #Persistent leukocytosis - WBC improved, manual showing no bands. - Anticipate improvement with increased perfusion #Bilateral Pleural Effusion - CXR unchanged from day prior showing no resolution nor progression of fissural thickening or bibasilar densities. - CT surgery following. #Pericardial effusion with impending tamponade, exudative - s/p pericardial window 10/13 - Likely related to fluid overload, however, autoimmune is a consideration - CT surgery following #Diabetes mellitus, type 2 - A1C: 8.1%. - Continue sliding scale insulin #Pulmonary hypertension - Strive for negative fluid balance - Potential from long-standing history of sleep apnea. We will continue CPAP at night and while sleeping. #Right upper extremity DVT -Heparin gtt continued # Hypertension - Controlled at this time #RA - On remicade at home #Morbid Obesity - Will need education with clinical improvement #Weakness and deconditioning -Will need PT/OT when transvenous pacer removed and patient no longer bed rest Resolved Hospital Problems: Afib with RVR Metabolic encephalopathy Candidasis Diet: Renal diet, dietary consult placed, calorie counts ordered, full nutritional assessment ordered. DVT/GI ppx: Heparin gtt, Pepcid PO BID for GI ppx given length of ICU stay L/T/D: Peck catheter (10/21/2019), right IJ transvenous pacemaker (10/22), right femoral HD catheter (10/23), prior left upper extremity PICC Drips: None. CODE STATUS: DNR/DNI. Dispo: Continue to monitor in the ICU. Patient with underlying heart block requiring intravenous pacemaker patient also with ATN requiring 1:1 nursing for CRRT. VS, I&O, 24H, Fishbone Vital Signs/I&O Vital Signs Date Time Temp Pulse Resp B/P (MAP) Pulse Ox O2 Delivery O2 Flow Rate FiO2 10/26/19 15:00 71 28 127/61 (83) 92 Room Air 10/26/19 13:00 97.1 10/26/19 07:42 21 10/25/19 16:00 0.5 I&O- Last 24 Hours up to 6 AM 10/26/19 05:59 Intake Total 1276.9 ml Output Total 1720 ml Balance -443.1 ml Laboratory Data 24H LABS Laboratory Tests 2 10/25/19 18:04: Bedside Glucose (Misc Panel) 104 10/25/19 18:23: Nucleated Red Blood Cells % (auto) 0.3H, Activated Partial Thromboplast Time > 240.0*H, Anion Gap 1L, Glomerular Filtration Rate 45.6, Calcium Level 7.9L, Whole Blood Ionized Calcium 4.3L, Phosphorus Level 2.4L, Magnesium Level 2.5H 10/25/19 20:36: Bedside Glucose (Misc Panel) 112H 10/26/19 02:34: Activated Partial Thromboplast Time 34.0 10/26/19 05:26: Immature Granulocyte % (Auto) 0.5, Neutrophils (%) (Auto) 78.0H, Lymphocytes (%) (Auto) 10.0L, Monocytes (%) (Auto) 9.0H, Eosinophils (%) (Auto) 1.9, Basophils (%) (Auto) 0.6, Neutrophils # (Auto) 12.4H, Lymphocytes # (Auto) 1.6, Monocytes # (Auto) 1.4H, Eosinophils # (Auto) 0.3, Basophils # (Auto) 0.1, Nucleated Red Blood Cells % (auto) 0.2H, Anion Gap 3L, Glomerular Filtration Rate 56.7, Calcium Level 7.7L, Whole Blood Ionized Calcium 4.4L, Phosphorus Level 2.3L, Magnesium Level 2.4 10/26/19 09:28: Activated Partial Thromboplast Time 129.3*H 10/26/19 11:44: Bedside Glucose (Misc Panel) 202H CBC/BMP Laboratory Tests 10/25/19 18:23 10/26/19 05:26 Microbiology Microbiology 10/25/19 Gastrointestinal Tract Panel (PCR) - Final, Complete 10/21/19 Urine Culture - Final, Complete Yeast Like Organism 10/17/19 Blood Culture - Final, Complete NO GROWTH AFTER 5 DAYS 10/17/19 Blood Culture - Final, Complete NO GROWTH AFTER 5 DAYS 10/17/19 Gram Stain - Final, Complete 10/17/19 Body Fluid Culture - Final, Complete 10/17/19 Anaerobic Culture - Final, Complete 10/17/19 Acid Fast Stain, Received Pending 10/17/19 Mycobacterial Culture, Received Pending 10/17/19 Fungal Smear, Received Pending 10/17/19 Fungal Culture, Received Pending GME ATTESTATION GME ATTESTATION My faculty preceptor for this patient encounter was physically present during the encounter and was fully available. All aspects of the patient interview, examination, medical decision making process, and medical care plan development were reviewed and approved by the faculty preceptor. The faculty preceptor is aware and concurs with the plan as stated in the body of this note and will att est to such by his/her cosignature. ATTENDING NOTE Patient seen and examined both independently and with resident. Agree with history, physical, and assessment and plan as described above except as otherwise noted below. Patient is awake, alert, and oriented 2 at this time. At this time she is sitting up in bed, and feeding herself breakfast. Patient's by mouth intake has improved significantly today. She continues to clinically improve. She is currently undergoing CRRT with approximately 50 mL of fluid removed every hour. As of this morning she had a net -90 mL for her hospital length of stay. Patient remains edematous with 1+ pitting edema of upper and lower extremities, however this is significantly improved from prior. Lungs are clear to auscultation. She is paced with transvenous pacemaker. Patient is more conversive today however she is forgetful and needs frequent reminders of hospitalization. Discussed goals of care with patient's son, Ministerio as well as patient's granddaughter, Leatha. Explained that the transvenous pacer and the CRRT herbal temporary and patient would need a permanent pacemaker and likely chronic dialysis to continue further treatment. Explained the risks benefits and alternatives to these procedures. Also explained that without them comfort measures with hospice would be recommended. Patient is agreeable to dialysis as well as pacemaker placement, however it is unclear if patient remembers the medical information explained to her as she is forgetful and unable to repeat back a summary of the conversation. Both both Ministerio and Leatha are agreeable to pursue tunneled HD catheter placement for the purpose of chronic and likely permanent dialysis as well as a permanent pacemaker placement. Family has seen improvement and patient over the last several days with current therapies and would like to continue with treatment options at this time. Discussed with cardiology and nephrology at length. Patient and his fluid status has improving but is not yet back at her dry weight. We'll plan to increase fluid removal with CRRT with the attempts to remove an additional 1-2 L prior to pacemaker placement. We'll plan on pacemaker placement tomorrow afternoon. Patient made nothing by mouth after midnight. We'll prep left subclavian region with ChloraPrep 2. We'll turn off heparin drip at 6 AM. Assessment: 1. Asystolic cardiac arrest secondary to complete heart block status post ROSC 2. Acute hypoxic hypercapnic respiratory failure 3. ATN on CKD3 requiring CRRT 4. UTI on Diflucan 14 days 5. Paroxysmal atrial fibrillation on heparin drip 6. Right upper extremity superficial basilic vein thrombus 7. Moderate protein calorie malnutrition based on poor by mouth intake and evidence of muscle wasting on physical exam. Calorie count initiated CODE STATUS: DNR/DNI. Disco. Continue to monitor in the ICU while transvenous pacemaker in place and on CRRT. Discussed plan with cardiology, nephrology, and CT surgery. Critical care time: 45 minutes. Time spent discussing goals of care and making important decisions about next steps including need for dialysis and pacemaker placement. Time also spent evaluating and reevaluating patient with adjustments of CRRT fluid removal. Billin KEIRY AGUILAR DO Oct 26, 2019 15:52 SANAM ALVARENGA DO Oct 26, 2019 18:28
[2019-10-26] MEDS: NYSTATIN CREAM 15 GM EXT PRN (15:57)
[2019-10-26] MEDS: LIDOCAINE 5% (LIDODERM) PATCH TD SCH (15:57)
[2019-10-26 18:45] LABS: HEMATOCRIT 26.3 % (36.0-47.0); HEMOGLOBIN 8.1 g/dl (12.0-15.5); MEAN CORPUSCULAR HEMOGLOBIN 26.7 pg (27.0-33.0); MEAN CORPUSCULAR HGB CONC 30.8 g/dl (32.0-36.5); MEAN CORPUSCULAR VOLUME 86.8 fl (80.0-96.0); PLATELET COUNT, AUTOMATED 384 10^3/uL (150-450); RED BLOOD COUNT 3.03 10^6/uL (4.00-5.40); WHITE BLOOD COUNT 18.7 10^3/uL (4.0-10.0)
[2019-10-26 18:46] LABS: IONIZED CALCIUM 4.3 MG/DL (4.5-5.3)
[2019-10-26 19:07] LABS: CALCIUM LEVEL 7.9 MG/DL (8.8-10.2); CREATININE FOR GFR 1.24 MG/DL (0.55-1.30); GLOMERULAR FILTRATION RATE 44.8 (>39); MAGNESIUM LEVEL 2.4 MG/DL (1.8-2.4); POTASSIUM SERUM 4.6 MEQ/L (3.5-5.1)
[2019-10-26] MEDS ORDERED: CALCIUM GLUCONATE 1,000 MG in NS 100 ML IV ONE ×2 (20:00→21:00)
[2019-10-26] MEDS ORDERED: **NOTE PATIENT COMMENT** MISC XX SCH (21:00)
[2019-10-26] MEDS: FAMOTIDINE 20 MG TAB PO SCH (21:07)
[2019-10-26] MEDS: **NOTE PATIENT COMMENT** MISC XX SCH (21:08)
[2019-10-26] MEDS ORDERED: SODIUM PHOSPHATE INJ 30 MMOL in D5W 500 ML IV ONE (22:00)
[2019-10-27] VITALS (26 sets, daily range): BP systolic 109–183; BP diastolic 53–113; O2SAT 92–93
[2019-10-27] MEDS: IPRATROPIUM 0.5MG/ALBUTEROL 2.5MG INH SOL UD 3ML (DUONEB)(J7620) NEB PRN ×2 (03:50→21:23)
[2019-10-27] MEDS: SODIUM CHLORIDE HYPERTONIC 3% 15ML NEB SOL INH SCH ×5 (03:50→21:22)
[2019-10-27] MEDS ORDERED: ceFAZolin SOD 2 GM in IV 1 EA IV ONE (06:00)
[2019-10-27 06:28] LABS: HEMATOCRIT 25.7 % (36.0-47.0); MEAN CORPUSCULAR HEMOGLOBIN 26.8 pg (27.0-33.0); MEAN CORPUSCULAR HGB CONC 31.1 g/dl (32.0-36.5); MEAN CORPUSCULAR VOLUME 86.2 fl (80.0-96.0); PLATELET COUNT, AUTOMATED 353 10^3/uL (150-450); RED BLOOD COUNT 2.98 10^6/uL (4.00-5.40); WHITE BLOOD COUNT 20.1 10^3/uL (4.0-10.0)
[2019-10-27 06:46] LABS: ALBUMIN 1.8 GM/DL (3.2-5.2); CALCIUM LEVEL 7.5 MG/DL (8.8-10.2); CREATININE FOR GFR 1.04 MG/DL (0.55-1.30); GLOMERULAR FILTRATION RATE 54.8 (>39); MAGNESIUM LEVEL 2.4 MG/DL (1.8-2.4); PHOSPHORUS LEVEL 3.3 MG/DL (2.5-4.9); TROPONIN I 0.02 NG/ML (< 0.10)
[2019-10-27] MEDS: HumaLOG INSULIN (NovoLOG) PER UNIT SC SCH ×4 (07:30→21:00)
[2019-10-27] MEDS: CALCIUM GLUCONATE 1,000 MG, VIAL MATE ADAPTER 1 EACH in NS 100 ML IV SCH ×2 (07:49→09:04)
--- NOTE | 2019-10-27 07:55 | REP ---
Portable chest, 07:04 a.m., single AP view with the patient semi upright: Comparison is 10/26/2019. The bibasilar densities are unchanged. The mild thickening of the minor fissure has decreased. Cardiomegaly is unchanged. The temporary pacemaker is unchanged. Impression: The thickening of the minor fissure has decreased. There is no other interval change. Electronically Signed by Long Lion MD 10/27/2019 07:46 A
[2019-10-27] MEDS: ACETYLCYSTEINE 20% 4 ML VIAL (200MG/ML) INH SCH (07:56)
--- NOTE | 2019-10-27 08:43 | IPN ---
DATE: 10/27/2019 Mrs. More is doing better today. She is a lot more alert and oriented. Apparently, there were no significant problems overnight. She remained paced. This morning, I turned down the pacemaker and it turns out that her underlying rhythm is sinus with ventricular rate of about 60 beats per minute. Consequently, I left the pacemaker program at [facility] with backup pacing at 50 beats per minute. There is a tentative plan for her to proceed with permanent pacemaker placement later today. It was contingent on her willingness to continue with dialysis. When I talked to her about it this morning, she was somewhat surprised, it does not seem that she comprehended the discussion yesterday or she already forgot, but she tells me that she definitely would like to be dialyzed if it would keep her alive. Vital Signs: Blood pressure 131/84. Heart rate as above. She is afebrile. She made only about 50 mL of urine all day yesterday, but about 2600 were removed by ultrafiltration. Recorded weight is 71.4. She is alert and oriented. Her jugular venous pulse (JVP) is probably minimally elevated, I would say about 3 cm above the clavicle. Lungs still sound slightly wet, but air movement seems improved. Heart exam at this point reveals a regular rhythm. Abdomen is soft. Extremities are free of edema. Laboratories: WBC count is 20,000, hemoglobin 8, hematocrit 25, platelet count 353,000 Basic metabolic panel - sodium 137, potassium 5.0, creatinine 1.1, GFR 56 and glucose 116. I had a troponin drawn because she complained about chest discomfort last night and it is 0.02. ASSESSMENT/PLAN: Mrs. More is a 78-year-old female who came originally with large pericardial effusion and underwent placement of pericardial window. The subsequent course was complicated by sick sinus syndrome with paroxysmal atrial fibrillation alternating with extreme bradycardia and complete heart block with pauses exceeding a minute that miraculously were survived. Now, she has a temporary pacemaker. It looks like her underlying sinus rate is improving, I suspect due to improving metabolic conditions and absence of amiodarone. There is a tentative plan to place a permanent pacemaker later today by Dr. Steven. I do believe that it is an appropriate decision as she undoubtedly will need the pacemaker and at this point her condition is improving even though she is certainly not guaranteed to survive this hospitalization. Otherwise, she remains in renal failure with minimal urine output and consequently the volume will have to be manipulated by dialysis. She still appears mildly volume overloaded, but this is regulated by nephrology. At this point she is on heparin that will shortly be discontinued in preparation for the surgical procedure. In the long run, she will need anticoagulation. The standard of care at this point for dialysis patient is a questionable. The recent studies showed that the anticoagulation in dialysis patients can potentially actually increase mortality even in patients with atrial fibrillation, but my choice would be apixaban 2.5 mg twice a day which can probably be started tomorrow.
[2019-10-27] MEDS: MOM 30ML SUSPENSION UDC PO SCH (08:55)
[2019-10-27] MEDS: amLODIPine 5 MG TAB PO SCH (09:04)
[2019-10-27] MEDS: FLUCONAZOLE 100 MG TAB PO SCH (09:04)
[2019-10-27] MEDS: LIDOCAINE 5% (LIDODERM) PATCH TD SCH (09:05)
--- NOTE | 2019-10-27 09:30 | IPN ---
DATE OF SERVICE: 10/27/2019 This is postop day 14 for pericardial effusion with tamponade relieved with pericardiostomy and pericardial window. The patient was seen and examined this morning in the ICU during bedside rounds. She does not appear to be distressed. She had her CPAP overnight with no problems. She has been tolerating her meals with no problems as well. She is currently nothing by mouth (n.p.o.) this morning as she is possibly getting a pacemaker placement if she is close to her dry weight. There were no overnight events reported. She continues to be on continuous renal replacement therapy (CRRT) and has very minimal urine output. She denies any chest pain, shortness of breath or trouble breathing. PHYSICAL EXAMINATION: VITAL SIGNS: Temperature 98.2, pulse 56, respirations 20, blood pressure 151/113 (129) pulse oximetry 99% on 2 liters on nasal cannula. GENERAL: Very pleasant, 78-year-old female who is laying in bed. She does not appear in acute distress, having her CPAP machine in place. Cordis in place on the right neck covered with a Tegaderm. CARDIOVASCULAR: Transcutaneously paced at 72 beats per minute, decreased down to 60. No audible murmurs or rubs. LUNGS: Very difficult to assess because of the fact the CPAP machine is in there, but there are aerations elicited bilaterally with no dullness to percussion. ABDOMEN: Soft, nontender. Positive bowel sounds, but slightly hypoactive. EXTREMITIES: No lower extremity edema, but there is a right upper extremity deep vein thrombosis (DVT). LABORATORY DATA: Hematology: WBC 20.1, hemoglobin 8.0, hematocrit 25.7, platelets 253. Chemistry: Sodium 137, potassium 5.0, chloride 106, carbon dioxide 23, anion gap 8, BUN 13, creatinine 1.04, fasting glucose 116. Ionized calcium 4.3. Calcium 7.5. Albumin 1.8. IMAGING: Portable chest x-ray currently pending. IMPRESSION: 1. Pericardial effusion with tamponade relieved with tube pericardiostomy and pericardial window, postoperative day #14. 2. Morbid obesity. 3. Asystole pauses resolved with temporary pacemaker. 4. Preserved left ventricular function, but poor right ventricular function and pulmonary artery hypertension estimated at 88 mmHg. 5. Rheumatoid arthritis. 6. Hypertension. 7. Right sided heart failure. 8. Acute renal failure requiring CRRT for ultrafiltration. 9. Pulmonary hypertension. 10. Left pleural effusion resolved, status post chest tube removal. 11. Right pleural effusion. 12. Right upper extremity DVT, on heparin drip, currently on hold for possible pacemaker later this afternoon. 13. Infiltrative process on the left lower lobe. 14. Diabetes. 15. Hypertension. 16. History of atrial fibrillation with rapid ventricular response (RVR). PLAN AND DISCUSSION: This patient is postoperative day 14 from pericardial window and pericardiostomy. She continues to be on CRRT for fluid removal. At this current time, she will be going for dialysis and will be having pacemaker placed later this afternoon. From a cardiothoracic surgery point of view, she is currently stable. Therefore we will be signing off. Thank you for this consultation. If there is any further need for us please do reconsults us. Thank you. NIGEL
--- NOTE | 2019-10-27 11:13 | IPNPDOC ---
Date Seen The patient was seen on 10/27/19. Progress Note SUBJECTIVE: Patient seen and examined. No acute events overnight. Patient continues with her temporary pacer at a rate of 70. Patient continues to receive CRRT and is agreeable to dialysis moving forward as well as having a permanent pacemaker placed. Her only complaint is that she is sleepy and cold, but denies any chest pain, difficulty breathing, nausea, or vomiting. Brief Hospital Course: Patient is a 78 year old female who presented to the ED on 10/13/2019 after a mechanical fall. On admission, patient was noted to have a large pericardial effusion with signs of tamponade and was taken urgently to the OR for pericardial window. Post-, patient in Afib with RVR and was given beta-hank and cardioversion. Shortly after, patient in asystole requiring chest compressions. (please sleep code sheet for details). Patient recovered following arrest and was able to be extubated without any notable changes in mentation. On 10/21, patient an additional 1 minute asystolic pause that spontaneously resolved. Patient with multiple episodes of prolonged sinuses pauses, concerning for complete heart block. Temporary pacemaker placed 10/22/2019. During course of stay, patient with persistent diffuse edema and bilateral pleural effusion s/p chest tube placement on the left. Patient with decreased urine output and worsening kidney function throughout hospital stay. She is now anuric with ATN. CRRT initiated 10/23/2019. Patient agreeable to having pacemaker placed as well as to initiating dialysis permanently. OBJECTIVE PHYSICAL EXAMINATION at time of examination 0800. VITAL SIGNS: Please see below. GENERAL: Alert and oriented to person, place, president not oriented to year/month. In no acute distress resting comfortably in her bed. HEENT: Normocephalic atraumatic, transvascular Cordis with pacemaker insertion n oted on right neck, dressing in place, not bleeding. CARDIOVASCULAR: Paced rhythm with heart rate in the 70s, diffuse edema of upper and lower extremities, midline surgical scar noted RESPIRATORY: Clear to auscultation with diminished breath sounds appreciated bilaterally. ABDOMINAL: Soft, non-tender, non-distended, positive bowel sounds EXTREMITIES: Spontaneously moves all 4 extremities but decreased strength throughout NEUROLOGICAL: A&O2, without focal deficits noted SKIN: Warm and dry. LABORATORY DATA, IMAGING STUDIES, MICROBIOLOGY: Please see below. ASSESSMENT AND PLAN: # Asystolic cardiac arrest with recurrent episodes of cardiac pause, due to complete heart block -Transvenous temporary pacemaker placed 10/22, plans for permanent pacemaker to be placed per cardiology this evening - Given chronic comorbidities and overall poor long-term prognosis, palliative care was consulted - Cardiology would like her to be 1500 ml net negative. # Acute hypoxemic and hypercapnic respiratory failure S/P cardiac arrest/pause - S/p extubation 10/15, secondary to fluid overload with bilateral pleural effusions - S/p chest tube removed on 10/24/2019. - CRRT for additional fluid removal #ATN on CKD 3 requiring HD - Likely cardiorenal syndrome in the context of poor renal perfusion in setting of heart block - Avoid nephrotoxic agents - CRRT started, continue labs every 6 hours to monitor electrolytes. Nephrology updated that patient is amenable to starting permanent dialysis. Dialysis catheter will be placed by vascular surgery following placement of pacemaker. - Nephrology following, recommendations appreciated. #Moderate protein calorie malnutrition - calorie counts ordered, dietary recommendations appreciated - DASH diet ordered, dietary not recommending further calorie interventions at this time. #UTI -Continue renally dosed Diflucan at 100 mg daily (day 4 of ) # Acutely decompensated systolic and diastolic CHF -Titrate oxygen to keep SPO2 greater than 92% - Beta hank hold for complete heart block, GIFTY inhibitor/ARB for HTN - Strict I/O, daily wt, 1.5L fluid restriction #Paroxysmal Atrial Fibrillation - Continue heparin gtt, monitor for signs of bleeding #Persistent leukocytosis - WBC improved, manual showing no bands. - Anticipate improvement with increased perfusion #Bilateral Pleural Effusion - CXR unchanged from day prior showing no resolution nor progression of fissural thickening or bibasilar densities. - CT surgery following. #Pericardial effusion with impending tamponade, exudative - s/p pericardial window 10/13 - Likely related to fluid overload, however, autoimmune is a consideration - CT surgery following #Diabetes mellitus, type 2 - A1C: 8.1%. - Continue sliding scale insulin #Pulmonary hypertension - Strive for negative fluid balance - Potential from long-standing history of sleep apnea. We will continue CPAP at night and while sleeping. #Right upper extremity DVT -Heparin gtt continued # Hypertension - Controlled at this time #RA - On remicade at home #Morbid Obesity - Will need education with clinical improvement #Weakness and deconditioning -Will need PT/OT when transvenous pacer removed and patient no longer bed rest Resolved Hospital Problems: Afib with RVR Metabolic encephalopathy Candidasis Diet: Renal diet, dietary consult placed, calorie counts ordered, full nutritional assessment ordered. DVT/GI ppx: Heparin gtt, Pepcid PO BID for GI ppx given length of ICU stay L/T/D: Peck catheter (10/21/2019), right IJ transvenous pacemaker (10/22), right femoral HD catheter (10/23), prior left upper extremity PICC Drips: None. CODE STATUS: DNR/DNI. Dispo: Continue to monitor in the ICU. Patient with underlying heart block requiring intravenous pacemaker patient also with ATN requiring 1:1 nursing for CRRT. Plans for pacemaker insertion this evening. VS, I&O, 24H, Fishbone Vital Signs/I&O Vital Signs Date Time Temp Pulse Resp B/P (MAP) Pulse Ox O2 Delivery O2 Flow Rate FiO2 10/27/19 10:00 54 27 178/72 (107) 98 Nasal Cannula 2.0 10/27/19 08:00 98.2 10/27/19 03:50 21 I&O- Last 24 Hours up to 6 AM 10/27/19 06:00 Intake Total 2533 ml Output Total 3476 ml Balance -943 ml Laboratory Data 24H LABS Laboratory Tests 2 10/26/19 11:44: Bedside Glucose (Misc Panel) 202H 10/26/19 16:21: Activated Partial Thromboplast Time 33.1 10/26/19 16:56: Bedside Glucose (Misc Panel) 155H 10/26/19 18:23: Nucleated Red Blood Cells % (auto) 0.4H, Anion Gap 3L, Glomerular Filtration Rate 44.8, Calcium Level 7.9L, Whole Blood Ionized Calcium 4.3L, Phosphorus Level 2.0L, Magnesium Level 2.4 10/26/19 22:03: Bedside Glucose (Misc Panel) 195H 10/26/19 22:46: Activated Partial Thromboplast Time 50.2H 10/27/19 06:03: Activated Partial Thromboplast Time 32.1 10/27/19 06:07: Anion Gap 8, Glomerular Filtration Rate 54.8, Calcium Level 7.5L, Phosphorus L evel 3.3#, Magnesium Level 2.4, Troponin I 0.02, Albumin 1.8L 10/27/19 06:15: Whole Blood Ionized Calcium 4.3L 10/27/19 06:22: Nucleated Red Blood Cells % (auto) 0.1H 10/27/19 10:22: CBC/BMP Laboratory Tests 10/26/19 18:23 10/27/19 06:07 10/27/19 06:22 Microbiology Microbiology 10/25/19 Gastrointestinal Tract Panel (PCR) - Final, Complete 10/21/19 Urine Culture - Final, Complete Yeast Like Organism 10/17/19 Blood Culture - Final, Complete NO GROWTH AFTER 5 DAYS 10/17/19 Blood Culture - Final, Complete NO GROWTH AFTER 5 DAYS 10/17/19 Gram Stain - Final, Complete 10/17/19 Body Fluid Culture - Final, Complete 10/17/19 Anaerobic Culture - Final, Complete 10/17/19 Acid Fast Stain, Received Pending 10/17/19 Mycobacterial Culture, Received Pending 10/17/19 Fungal Smear, Received Pending 10/17/19 Fungal Culture, Received Pending GME ATTESTATION GME ATTESTATION My faculty preceptor for this patient encounter was physically present during the encounter and was fully available. All aspects of the patient interview, examination, medical decision making process, and medical care plan development were reviewed and approved by the faculty preceptor. The faculty preceptor is aware and concurs with the plan as stated in the body of this note and will attest to such by his/her cosignature. ATTENDING NOTE Patient seen and examined both independently and with resident. Agree with history, physical, and assessment and plan as described above except as otherwise noted below. Patient is awake, alert, and oriented 2 at this time. No acute overnight events. She reports she is feeling "alright", but does state she is cold and has several layers of blankets in place. On physical exam patient is on an minimal oxygen support with one liters nasal cannula. Diffuse edema has improved however there is still pitting edema noted in the upper thighs and abdomen. No edema noted in her upper or lower extremities. Lungs sounds are clear. Heparin drip wa s discontinued this morning at 6 AM in preparation for planned permanent pacemaker placement this afternoon severity was ongoing throughout the evening with net -100 mL per hour fluid removal. In the last 24 hours patient has been - 1 L with -3 L removed throughout the entire course of CRRT. CRRT was discontinued just prior to noon. Temporary femoral dialysis catheter has been removed. Patient with plan to go to permanent placement this afternoon. Discussed with cardiology and nephrology. Assessment: 1. Asystolic cardiac arrest secondary to complete heart block status post ROSC 2. Acute hypoxic hypercapnic respiratory failure, improving 3. ATN on CKD3 requiring CRRT, we'll plan for long-term intermittent dialysis 4. UTI on Diflucan 14 days 5. Paroxysmal atrial fibrillation on heparin drip 6. Right upper extremity superficial basilic vein thrombus 7. Moderate protein calorie malnutrition based on poor by mouth intake and evidence of muscle wasting on physical exam, improved by mouth intake CODE STATUS: DNR/DNI. Disco. Continue to monitor in the ICU while transvenous pacemaker in place and on CRRT. Discussed plan with cardiology, nephrology, and CT surgery. Billin KEIRY AGUILAR DO Oct 27, 2019 11:13 SANAM ALVARENGA DO Oct 27, 2019 13:27
[2019-10-27 13:07] LABS: HEPATITIS B CORE ANTIBODY IGM NEGATIVE (NEGATIVE); HEPATITIS B SURFACE ANTIBODY NEGATIVE (POSITIVE); HEPATITIS B SURFACE ANTIGEN NEGATIVE (NEGATIVE)
[2019-10-27] MEDS: NYSTATIN CREAM 15 GM EXT PRN (13:11)
[2019-10-27] MEDS ORDERED: amLODIPine 5 MG TAB PO ONE (14:00)
--- NOTE | 2019-10-27 15:17 | IPN ---
DATE: 10/27/2019 Mrs. More is seen during CRRT on her bedside in intensive care unit. She has oliguric acute renal failure, which has not responded to diuretics and she remains on CRRT for the last 3-4 days. Her volume status has improved significantly. However, nursing staff reports that this morning she dropped her oxygen saturation and has required supplemental oxygen, while yesterday all day she did not require any oxygen. We have been removing fluid constantly, about 50-100 mL per hour, and she has been in negative fluid balance. The patient has no fever or chills at present, and she is scheduled for a permanent pacemaker placement this afternoon. PHYSICAL EXAMINATION: Temperature 98.2 degrees Fahrenheit, heart rate 54 per minute and respiratory rate 24 per minute. Blood pressure 178/74 mmHg and oxygen saturation 98% on 2 liters of oxygen. Her neck veins are difficult to be assessed. Head is atraumatic. Temporary pacemaker lead is present in the right side of the neck. Heart sounds are bradycardiac and without a pericardial friction rub. Lungs with slightly diminished breath sounds at bases with bibasilar crackles. Abdomen is soft and somewhat full but nontender. Bowel sounds are normal. Extremities have no cyanosis or clubbing. She has 1+ thigh edema. Neurologically, she is awake and without a focal deficit. Today's labs show WBC count 20.1, hemoglobin 8.0 and hematocrit 25.7. Platelets 353. Sodium 137, potassium 5.0, CO2 23, BUN 13 and creatinine 1.04. Ionized calcium is 4.3 and phosphorus 3.3. Albumin is 1.8. PROBLEMS: 1. Oliguric acute renal failure. The patient remains on CRRT, which will be stopped prior to OR for pacemaker and then we will plan on doing a regular hemodialysis in the next 48 hours. She is very well dialyzed and I do not feel that she will require dialysis tomorrow. I would recommend to remove her femoral catheter once the CCRT is stopped and then we will get a Perma-Cath placed on Friday morning. 2. Respiratory insufficiency. Volume status has improved significantly and we are going to increase the fluid removal to 150 mL per hour until she goes to OR and try to optimize her volume status. 3. Cardiac arrhythmias. The patient is scheduled for a permanent pacemaker placement later this afternoon by Dr. Steven. She is very well dialyzed, and we have tried to optimize her volume status as much as possible. 4. Anemia. No active bleeding and no emergent need for a transfusion. No significant change in her hemoglobin over the last 4 days. 33 minutes of critical care time spent, during which no procedures were performed. Dictation
[2019-10-27] MEDS ORDERED: ISOVUE-300 61% 50ML VIAL (Q9967) As Ordered ONE (16:07)
[2019-10-27] MEDS ORDERED: LIDOCAINE 1% SDV INJ 30 ML VIAL As Ordered ONE (16:07)
[2019-10-27] MEDS ORDERED: AMIODARONE HCL 150 MG/100 ML PREMIXED BAG (NEXTERONE) (J0282 PER 30MG) As Ordered ONE (16:07)
[2019-10-27] MEDS ORDERED: BACITRACIN PWD 50,000 UNITS VIAL As Ordered ONE (16:08)
--- NOTE | 2019-10-27 16:28 | ECGEPIP ---
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
[2019-10-27] MEDS ORDERED: ceFAZolin 2 GM/D5W 50 ML IV BAG (J0690 PER 500MG) As Ordered ONE (17:26)
[2019-10-27] MEDS ORDERED: propofoL 200 MG/20 ML VIAL As Ordered ONE (17:40)
[2019-10-27] MEDS ORDERED: fentaNYL 100 MCG/2 ML INJECTION (J3010) As Ordered ONE (17:40)
[2019-10-27] MEDS ORDERED: MIDAZOLAM INJ 2 MG/2 ML VIAL (J2250) As Ordered ONE (17:40)
[2019-10-27] MEDS ORDERED: LR 1,000 ML IV SCH (19:30)
[2019-10-27] MEDS ORDERED: ONDANSETRON 4MG/2ML VIAL (J2405) IV PRN (19:30)
[2019-10-27] MEDS ORDERED: fentaNYL 100 MCG/2 ML INJECTION (J3010) IV PRN (19:30)
--- NOTE | 2019-10-27 19:42 | REP ---
Portable chest x-ray: Single view. History: Post pacemaker implant. Comparison study: October 27, 2019. Findings: A bipolar pacemaker is seen in the right heart via the left side. Skin darrick are affixed to the skin at the high are plant on the left. There is no evidence of pneumothorax. There is evidence of mitral annular calcification and mild cardiomegaly. There is fissural thickening in the minor fissure on the right. No toya pleural effusion is evident. Impression: Status post pacemaker. No pneumothorax seen. Electronically Signed by Nicolas Barboza MD 10/27/2019 07:34 P
[2019-10-27] MEDS: FAMOTIDINE 20 MG TAB PO SCH (20:21)
[2019-10-27] MEDS: **NOTE PATIENT COMMENT** MISC XX SCH (20:21)
--- NOTE | 2019-10-27 21:03 | RO ---
DATE OF PROCEDURE: 10/27/2019 PROCEDURE: Implantation of permanent dual-chamber pacemaker. IMPLANTING TOBACCO GROWER: Dr. Chong Steven. ANESTHESIOLOGIST: Dr. Lambert PREOPERATIVE DIAGNOSIS: 1. Paroxysmal complete heart block. 2. Tachy-darwin syndrome. 3. Paroxysmal atrial fibrillation. POSTOPERATIVE DIAGNOSIS 1. Paroxysmal complete heart block. 2. Tachy-darwin syndrome. 3. Paroxysmal atrial fibrillation. ANESTHESIA: Monitored local anesthesia. DESCRIPTION OF PROCEDURE With the patient in the fasting state having been off IV heparin for at least 6 hours and having signed informed consent, she was given Ancef 2 grams IV premedication and then taken to the operating theater. Numerous skin electrodes were applied to facilitate continuous electrocardiographic monitoring. The left subclavian region was prepped and draped in the usual fashion. The skin was infiltrated with 1% Xylocaine. The left subclavian vein was catheterized using the micropuncture technique. A 5 cm linear incision was made 2 cm below and parallel to the left clavicle. Dissection was carried down to the level of the pectoralis fascia and a pocket was fashioned below the level of the incision line. Two bipolar screw-in active fixation steroid eluting pacing leads were advanced to the heart using 10-Trinid[place] long introducers because of great tortuosity of her major venous system. These were positioned to the right ventricular outflow tract and the high right atrial appendage under fluoroscopic and electrocardiographic control. The right ventricular lead ([employer] - model # CIR2147K/58 MRI compatible, serial number [id number]) measurements were: stimulation threshold 0.075V/0.4 ms/impedance 590 ohms. The R wave amplitude measured 4.3 mV. The atrial lead ([employer] model # LVS0479X/52 MRI compatible, serial number [id number]) measurements were initially 2.0V/0.4 ms/impedance 550 ohms. The P wave amplitude measured 1.8 mV. This atrial threshold was dropping by the time we got to the recovery room it measured 1.05V. These leads were secured in position with sleeves sutured at their insertion site. They were then connected to a MRI compatible dual-chamber pulse generator ([employer] model #MO8079, serial #[id number]) and appropriate DDD pacing was documented. The pulse generator was placed in the pocket and secured in position with a suture through the right upper hand corner of the epoxy header. The subcutaneous tissues were approximated using running chromic suture and the skin was closed using darrick. A dry dressing was applied. The patient was returned to the recovery room in good condition. No apparent complication, but estimated blood loss close 50 mL in light the need for the long 10-Trinidadian introducers. Postoperative upright portable chest x-ray showed good lead position with no pneumothorax. Her postoperative EKG showed consistent atrially paced rhythm at 60 bpm with spontaneous AV conduction and her left bundle branch block configuration. Her temporary pacing lead previously inserted through her right internal jugular vein was pulled back under fluoroscopic control. In the recovery room the introducer was removed and a dry dressing was placed over this site. We intend to administer an additional three doses of Ancef 1 gram IV every 8 hours. At this point she will return to the intensive care unit.
[2019-10-28] VITALS (16 sets, daily range): BP systolic 128–180; BP diastolic 58–96; O2SAT 91–96
[2019-10-28] MEDS: SODIUM CHLORIDE HYPERTONIC 3% 15ML NEB SOL INH SCH ×7 (00:16→23:54)
[2019-10-28] MEDS: ceFAZolin SOD 1 GM in D5W MINI-BAG PLUS 50 ML IV SCH ×3 (00:43→18:35)
[2019-10-28 05:08] LABS: HEMATOCRIT 23.4 % (36.0-47.0); HEMOGLOBIN 7.3 g/dl (12.0-15.5); MEAN CORPUSCULAR HEMOGLOBIN 27.4 pg (27.0-33.0); MEAN CORPUSCULAR HGB CONC 31.2 g/dl (32.0-36.5); PLATELET COUNT, AUTOMATED 315 10^3/uL (150-450); RED BLOOD COUNT 2.66 10^6/uL (4.00-5.40); WHITE BLOOD COUNT 18.6 10^3/uL (4.0-10.0)
[2019-10-28 05:32] LABS: ALBUMIN 1.9 GM/DL (3.2-5.2); CALCIUM LEVEL 7.5 MG/DL (8.8-10.2); CREATININE FOR GFR 2.09 MG/DL (0.55-1.30); GLOMERULAR FILTRATION RATE 24.5 (>39); PHOSPHORUS LEVEL 3.9 MG/DL (2.5-4.9); POTASSIUM SERUM 4.9 MEQ/L (3.5-5.1)
[2019-10-28] MEDS: ISOSORBIDE DIN (ISORDIL) 10 MG TAB PO SCH ×3 (07:00→18:34)
[2019-10-28] MEDS: HumaLOG INSULIN (NovoLOG) PER UNIT SC SCH ×4 (07:30→20:02)
--- NOTE | 2019-10-28 08:51 | IPN ---
DATE OF SERVICE: 10/28/2019 Mrs. More had her pacemaker placed by Dr. Steven yesterday afternoon. Afterwards, the central line cord and the dialysis catheters were removed. She has not had any significant events overnight, but she continues to be on continuous positive airway pressure (CPAP) continuously. This morning, the communication is somewhat limited because of her CPAP, but she denies any chest pain or sensation of shortness of breath. Vital signs: The last documented blood pressure was 158/68, heart rate has been in 60s. She is predominantly having spontaneous sinus rhythm without actual pacing. Saturation is 95% on 2-3 liters of oxygen with bilateral positive airway pressure (BiPAP)/CPAP. She has been afebrile. Fluid balance yesterday was recorded about 1 liter negative principally due to ultrafiltration before it was discontinued. Weight is 69.7 kg, which represents significant weight loss compared to weight just a few days ago. She is alert. Her jugular venous pressure (JVP) is difficult to intern brand because of the bandage on the right side of her neck and newly placed pacemaker on the left. Lungs are reasonably clear, though, with only minimal inspiratory crackles. Heart examination reveals regular rhythm with a paradoxically split second heart sound. Faint murmur at the apex. Abdomen is obese but soft. I do not appreciate peripheral edema of lower extremities. Neurologically, she moves all four extremities, and her speech as much as I can tell is intact. LABORATORIES: CBC reveals hemoglobin 7.3, hematocrit 23, platelet count 315,000, and WBC count 18.6. Basic metabolic panel: Sodium 137, potassium 4.9, BUN 20, creatinine 2.1, and glucose 100. ASSESSMENT AND PLAN: Mrs. More is a 78-year-old female who had pericardial window placed complicated by bradyarrhythmic arrest and subsequently episodes of paroxysmal atrial fibrillation with intermittent heart block and left ventricle ejection fraction estimated around 35%. She developed oliguric renal failure and has been requiring ultrafiltration. Permanent pacemaker placed by Dr. Steven yesterday. So far, she has not been paced very much. As far as the further management is concerned, unfortunately, it appears that she will remain dialysis dependent. Management of volume remains with nephrology service. As far as congestive heart failure is concerned, at this point she is not ventricularly paced, which is certainly advantageous because she does not have biventricular pacemaker. Consequently, I am going to wait with administration of beta blockers unless we see evidence for ventricular tachycardia or other form of tachyarrhythmias. As far as the blood pressure is concerned, I am also going to wait with administration of angiotensin-converting enzyme (GIFTY) inhibitors because I still believe that there is small chance that she can recover her renal function. She was given amlodipine, which does not provide any obvious benefit in the setting of systolic heart failure; and consequently, I am going to change the medication to hydralazine and isosorbide dinitrate. As far as the management of atrial fibrillation is concerned, at this point she did not have any episodes, and there has not been any tachycardia. On the other hand, her anticoagulation was stopped yesterday. There are some new data suggesting that the anticoagulation in the setting of dialysis is highly controversial, and it could potentially actually increase mortality; and if so, it looks like that low-dose apixaban is the best choice. Consequently, I am going to wait with any anticoagulation today. She is tentatively going to get PermCath placed tomorrow morning, and administration of apixaban would certainly make the procedure riskier. Her condition remains quite poor, but if anything she is slowly improving. NIGEL
[2019-10-28] MEDS: LIDOCAINE 5% (LIDODERM) PATCH TD SCH (09:00)
[2019-10-28] MEDS ORDERED: amLODIPine 10 MG TAB PO SCH (09:00)
--- NOTE | 2019-10-28 09:36 | ECGEPIP ---
[facility] Test Date: 2019-10-27 Pat Name: MINA TA Department: Room: [place] [address] Gender: Female Senior Managing Director: : 1940 Requested By: Chong Steven Order Number: [id number] Reading MD: Chong Steven Measurements Intervals [place] Rate: 60 P: 79 AL: 166 QRS: 87 QRSD: 153 T: -80 QT: 461 QTc: 461 Interpretive Statements consistent AV sequentially paced rhythm Paced QRS complexes with normal axis and Left bundle branch block configuration keeping with RV outflow tract stimulation QRS morphology changed from prior temporary paced rhythm from RV apex 10/26/19 Electronically Signed on 10-28-2019 9:36:28 EST by Chong Steven
--- NOTE | 2019-10-28 09:36 | REP ---
A PA and lateral chest with the patient semi upright: Comparison is 10/27/2019. There is a dual-chamber pacemaker with the pacing tips in satisfactory positions, unchanged. Skin darrick are noted adjacent to the pacemaker battery pack. This is unchanged. There is no pneumothorax or pleural fluid collection. There is under aeration of the lung bases. Lung alves otherwise clear. Cardiac size appears enlarged, unchanged. The radha and mediastinum are unremarkable. There are chronic degenerative changes in the shoulders. Impression: Under aeration of the lung bases. No pneumothorax or pleural fluid collection. Electronically Signed by Long Lion MD 10/28/2019 09:27 A
--- NOTE | 2019-10-28 09:38 | ECGEPIP ---
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 Consistent ventricular pacing with QRS complexes having normal axis and Left bundle branch block configuration in keeping with RV outflow tract stimulation. Increased atrial rate from 10/27/19. Electronically Signed on 10-28-2019 9:37:40 EST by Chong Steven
[2019-10-28] MEDS: MOM 30ML SUSPENSION UDC PO SCH (09:49)
[2019-10-28] MEDS: **hydrALAZINE** 10 MG TAB PO SCH ×3 (09:50→20:12)
[2019-10-28] MEDS: FLUCONAZOLE 100 MG TAB PO SCH (09:50)
--- NOTE | 2019-10-28 11:43 | IPN ---
DATE: 10/28/2019 PACEMAKER SERVICE PROGRESS NOTE SUBJECTIVE: The patient reports some minor incisional discomfort but appears quite bright, sitting up and eating her food. Denies any shortness of breath or weakness at this time. OBJECTIVE: Pleasantly demented, elderly, obese woman lying comfortably with the head of the bed elevated 30 degrees. Obvious pallor but no cyanosis. Normal oral moisture. Heart rate 64 beats per minute and regular, blood pressure 153/83, respiratory rate 28, oxygen saturation 92% on supplemental oxygen by nasal prongs. Increased anteroposterior chest diameter with adequate chest expansion. Her left neck temporary pacemaker site appears fine. Dressing was removed. Her left subclavian permanent pacemaker incision appears slightly swollen with some ecchymosis but no erythema or tenderness. Dressing was changed. 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 For the most part, she has spontaneous AV conduction and QRS complexes with right bundle branch block. Chest x-ray: Upright AP and left lateral studies were performed earlier today and shows stable lead position with no pneumothorax. Obvious cardiomegaly. Somewhat prominent proximal pulmonary arteries. Still has a left pleural effusion but the right lung was quite clear. EKG: Tracing taken earlier today shows underlying sinus rhythm with atrial sensing and tracking and consistent ventricular pacing with paced QRS complexes having a normal axis and left bundle branch block configuration in keeping with RV outflow tract stimulation. QRS complexes unchanged from her postoperative study yesterday. Complete pacemaker interrogation was performed today showing excellent intra-atrial electrograms. There is intraventricular electrogram is slightly small and 1.9 mV, pacing thresholds in both chambers were excellent at 0.5 volts and 0.4 milliseconds. Her device low pacing rate is set at 60. Her AV delays are paced 200, sensed 150 milliseconds, but she has VIP extension of 150 milliseconds in order to facilitate a normal spontaneous AV conduction as much as possible. Her atrial pacing threshold was excellent so we actually reduced her pulse width today. IMPRESSION/PLAN: 1. 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 Her device is functioning appropriately. Has auto ventricular sensing feature activated because of her somewhat low intrinsic R waves. Subtle program changes were made in order to augment battery longevity, which is currently estimated at approximately 10 years. I agree with increasing her activities. I am hoping she will keep her incision dry until we remove the darrick in approximately 7 to 10 days. 2. AV block (paroxysmal): As per assessment #1. She should be able to have her IV heparinization resumed after 6:00 p.m. suresh. Thank you, Chong Steven MD [facility]
[2019-10-28] MEDS: FUROSEMIDE injection 250 MG in D5W 225 ML IV SCH ×2 (12:01→23:38)
--- NOTE | 2019-10-28 12:19 | CR.PDOC ---
General Date of Consultation: Oct 28, [address] Mathis HPI: 78 year old F with oliguric acute renal failure on CRRT for the past 3-4 days with plan for hemodialysis, as per Nephrology. Vascular surgery is consulted for PermCath placement. PAST MEDICAL HISTORY/PSH: Hypertension, diabetes, combined systolic and diastolic congestive heart failure, right heart failure, CKD stage III atrial fibrillation with RVR, pericardial effusion, status post pericardial window and drainage, pleural effusions, history of cardiac arrest, osteopenia, fatty liver disease, Pacemaker placement SOCHX: Former smoker ROS: As noted in HPI, otherwise 11pt ROS of systems reviewed and unremarkable. PE: GEN: 78yoF, appears stated age. HEENT: Normocephalic, atraumatic. Moist mucous membranes. CHEST: Regular rate and rhythm, +S1, +S2 LUNGS: Clear to auscultation bilaterally. SKIN: [place], dry, warm. No rashes. NEURO: Alert and oriented x 3. No focal deficits appreciated. A&P: 1. ARF with need for hemodialysis. Plan is for Permcath placement as per Dr Mathis later today. The procedure, risks, benefits and alternatives are reviewed with the patient and her healthcare proxy. Informed consent is obtained from the patient and her healthcare proxy and is placed on the chart. The patient should be nothing by mouth. Tentative Plan for Permcath later this PM. Vital Signs/I&O Vital Signs Date Time Temp Pulse Resp B/P (MAP) Pulse Ox O2 Delivery O2 Flow Rate FiO2 10/28/19 12:01 151/60 10/28/19 11:21 70 26 90 Nasal Cannula 3.0 10/28/19 09:44 99.6 10/28/19 07:35 32 I&O- Last 24 Hours up to 6 AM 10/28/19 06:00 Intake Total 740 ml Output Total 672 ml Balance 68 ml Laboratory Data Labs 24H Laboratory Tests 2 10/27/19 22:15: Bedside Glucose (Misc Panel) 112H 10/28/19 04:25: Nucleated Red Blood Cells % (auto) 0.2H, Anion Gap 6L, Glomerular Filtration Rate 24.5L, Calcium Level 7.5L, Phosphorus Level 3.9, Albumin 1.9L 10/28/19 11:53: Bedside Glucose (Misc Panel) 193H CBC/BMP Laboratory Tests 10/28/19 04:25 Microbiology Microbiology 10/25/19 Gastrointestinal Tract Panel (PCR) - Final, Complete 10/21/19 Urine Culture - Final, Complete Yeast Like Organism Allergies Coded Allergies: No Known Allergies (Unverified , 10/15/18) Home Medications Scheduled Acetaminophen (Tylenol 8 Hour) 650 Mg Tablet.er, 650 MG PO ASDIRECTED, (Reported) 30 MINUTES PRIOR TO INFUSION Amlodipine Besylate (Amlodipine Besylate) 5 Mg Tablet, 5 MG PO DAILY, (Reported) Furosemide (Lasix) 20 Mg Tablet, 20 MG PO DAILY, (Reported) SCRIPT SAYS TWICE A DAY BUT PATIENT ONLY TAKES ONCE A DAY Glimepiride (Glimepiride) 1 Mg Tablet, 1 MG PO DAILY, (Reported) Infliximab Injection (Remicade) 100 Mg Vial, 100 MG IV ASDIRECTED, (Reported) EVERY 8 WEEKS: PATIENT STATES LAST DOSE HAS BEEN 3 WEEKS AGO Loratadine (Loratadine) 10 Mg Tablet, 10 MG PO DAILY, (Reported) Loteprednol Etabonate (Alrex) 0.2% 5ML Drops.susp, 1 DROP OU TID, (Reported) Quinapril HCl (Quinapril HCl) 20 Mg Tablet, 40 MG PO DAILY, (Reported) Tacrolimus (Tacrolimus) 30 Gm Oint...g., 1 DOSE EXT BID, (Reported) THIN BEAD TO UPPER AND LOWER EYELIDS Tobramycin/Dexamethasone (Tobramycin-Dexameth Ophth Susp) 5 Ml Drops.susp, 1 DROP OU TID, (Reported) Pat Mancia Oct 28, 2019 12:04
[2019-10-28] MEDS: IPRATROPIUM 0.5MG/ALBUTEROL 2.5MG INH SOL UD 3ML (DUONEB)(J7620) NEB PRN ×2 (12:20→15:04)
[2019-10-28] MEDS ORDERED: HEPARIN SOD (PORCINE) 5000 UNITS/ML VIAL (J1644 PER 1000UNITS) As Ordered ONE (15:27)
[2019-10-28] MEDS ORDERED: LIDOCAINE 2% MDV 20 ML VIAL As Ordered ONE ×2 (15:28→15:29)
[2019-10-28] MEDS ORDERED: BUPIVACAINE HCL 0.5% 30 ML VIAL As Ordered ONE (15:29)
[2019-10-28] MEDS ORDERED: HEPARIN 1,000 UNITS/ML 10ML VIAL (FOR RADIOLOGY& DIALYSIS ONLY)(J1644-10) As Ordered ONE (16:12)
[2019-10-28] MEDS ORDERED: MIDAZOLAM INJ 2 MG/2 ML VIAL (J2250) As Ordered ONE (16:12)
[2019-10-28] MEDS ORDERED: fentaNYL 100 MCG/2 ML INJECTION (J3010) As Ordered ONE (16:12)
[2019-10-28] MEDS ORDERED: LIDOCAINE W/EPINEPHRINE 1% 20ML VIAL As Ordered ONE (16:12)
[2019-10-28] MEDS ORDERED: ceFAZolin 1GM INJ (J0690 PER 500MG) As Ordered ONE (16:34)
--- NOTE | 2019-10-28 17:34 | IPN ---
DATE: 10/28/2019 Mrs. More is seen this morning on her bedside in intensive care unit. She underwent a permanent pacemaker placement yesterday afternoon, and continuous renal replacement therapy (CRRT) was stopped around noontime yesterday. She remains oliguric and currently on 3 liters oxygen. The patient reports some cough without any hemoptysis. She has no nausea or vomiting. PHYSICAL EXAMINATION: Temperature 98.6 degrees Fahrenheit, heart rate 62 per minute, respiratory rate 26 per minute, blood pressure 150/60 mm of mercury, and oxygen saturation 94% on 3 liters oxygen. Head is atraumatic. Neck: Supple and jugular venous distention (JVD) difficult to be assessed. Port from her right side of neck has been removed where she had a temporary catheter, and dressing is intact. She has a new permanent pacemaker on left upper chest. Heart sounds are regular and without a pericardial friction rub. Lungs with diminished breath sounds at dependent parts. Abdomen is protuberant, soft, and nontender, and bowel sounds are normal. Extremities without any cyanosis or clubbing. Mild thigh edema is noticed. Neurologically, she is awake, alert and oriented times three. Today's labs show WBC count 18.6, hemoglobin 7.3, and hematocrit 23.4. Platelets 315. Sodium 137, potassium 4.9, CO2 of 26, BUN 20, and creatinine 2.09. Calcium level is 7.5 and albumin 1.9. PROBLEMS: 1. Oliguric acute renal failure superimposed on chronic kidney disease. CRRT was stopped yesterday, and the patient is likely to require further dialysis. I have already discussed with her, and once again I explained to her, and she is in agreement. We will get a Perm-A-Cath placed and consider to dialyze her tomorrow. At this point, there is no emergent indication for dialysis today. 2. Hypoxemia. She does have 3 liters of oxygen, while a couple of days ago she was oxygenating very well on room air. Her chest x-ray did show improvement, and volume status overall has improved significantly with CRRT for several days. I am going to start her on Lasix drip with 20 mg per hour Lasix and see how she does. We will certainly remove more fluid with dialysis. 3. Anemia. She does have worsening anemia due to acute renal failure and is likely to require transfusion. I am going to hold it off until we perform next dialysis, and then we will give her a blood transfusion while removing further fluid. 4. Cardiac arrhythmias. She now has a permanent pacemaker in place and has been doing well without any further pauses, while previously she had long pauses up to 2 minutes. 5. Generalized weakness and deconditioning. The patient has been in intensive care unit for several days and very weak. We will see how she does when she starts getting out of bed. There was 28 minutes of critical care time spent. No procedures were performed during this time.
--- NOTE | 2019-10-28 17:37 | ROOPDOC ---
[facility] Report Of Operation Report of Operation DATE OF PROCEDURE: 10/28/19 PREPROCEDURE DIAGNOSES: Acute on chronic renal insufficiency requiring access for dialysis POSTPROCEDURE DIAGNOSES: Same PROCEDURE: 1. Ultrasound-guided access right internal jugular vein 2. Placement of a 23 cm tunneled dual-lumen PermCath right internal jugular vein SURGEON: Jennifer Mathis MD ANESTHESIA: Local anesthesia 17 mL lidocaine with epi. Full sedation was not used for this patient as she was somewhat confused prior to the procedure. We did give a small amount of analgesia, 25 g IV fentanyl, and she was still monitored by myself and a registered nurse at the sign to the Department of radiology using automated blood pressure, EKG, pulse oximetry throughout the case. She tolerated the procedure well with just a small amount of analgesia. INDICATION FOR PROCEDURE: This is a very pleasant 78-year-old patient who requires access for dialysis. Risks benefits and alternatives was explained to the patient and her healthcare proxy, and both were agreeable to proceed and informed consent was signed by both the patient and her healthcare proxy. Of note, the patient has known red streaking and bruising over the right neck and shoulder that was present prior to PermCath placement. INTERPRETATION: 1. The right IJ PermCath is in good position with no kinks in the catheter, the tips freely mobile at the right atrial SVC junction, and no pneumothorax. It is okay to use the catheter for dialysis. REPORT OF OPERATION: The patient was brought into the suite and placed supine with a shoulder roll and slight Trendelenburg. Her right neck and chest were prepped and draped in a careful sterile fashion. A timeout was performed. Analgesia and antibiotics were administered without complication. Local anesthesia was administered to the skin and subcutaneous tissue over the right neck and a microneedle was used to access the right internal jugular vein under ultrasound guidance. A wire was passed through this access under fluoroscopic guidance and needle was removed. A micro-sheath was placed. Through this access, J-wire was advanced into the central system under fluoroscopic guidance. A small incision was made at the jugular access site. 2 serial dilators were passed over the wire using a Seldinger technique and a peel-away sheath was placed over the wire. The inner cannula and wire were removed. A small incision was made and the right chest after anesthetizing the skin and subcutaneous tissue from the right chest to the jugular access site over the clavicle. We then tunneled the catheter until the cuff was within the subcutaneous tissue and the tips were then placed through the peel-away sheath into the central system of the peel- away sheath was removed. Both ports gabbi back and flushed easily and were heparin locked. Appropriate caps were placed. Final imaging revealed the catheter to be in good position, no kinks in the catheter, the tips freely mobile at the right atrial SVC junction, and no pneumothorax. The jugular access site was closed with deep and superficial Monocryl sutures and Dermabond was placed at the skin. The catheter was secured to the chest wall in 2 Prolene sutures and the exit site was also closed with a Prolene suture. Sterile dressings were applied. The patient was then taken back to recovery in stable condition and then taken back to the ICU. She tolerated the procedure well. ESTIMATED BLOOD LOSS: Approximately 2 mL. COMPLICATIONS: None. PLAN: It is okay to resume preoperative diet and orders per the primary team. It is okay to use the PermCath for dialysis. JENNIFER MATHIS MD Oct 28, 2019 17:37
[2019-10-28] MEDS: FAMOTIDINE 20 MG TAB PO SCH (20:18)
[2019-10-28] MEDS: **NOTE PATIENT COMMENT** MISC XX SCH (20:18)
--- NOTE | 2019-10-28 20:37 | IPNPDOC ---
Date Seen The patient was seen on 10/28/19. Progress Note SUBJECTIVE: Patient seen and examined. No acute events overnight. Patient received permanent pacemaker last night. She tolerated the procedure well. This morning she is sitting up in bed in eating breakfast. She states she feels cold but otherwise she is alright. Patient is very forgetful. Patient currently denies chest pain, shortness of breath, abdominal pain, nausea, vomiting. Patient now voiding urine after initiation of Lasix drip. Brief Hospital Course: Patient is a 78 year old female who presented to the ED on 10/13/2019 after a mechanical fall. On admission, patient was noted to have a large pericardial effusion with signs of tamponade and was taken urgently to the OR for pericardial window. Post-, patient in Afib with RVR and was given beta-hank and cardioversion. Shortly after, patient in asystole requiring chest compressions. (please sleep code sheet for details). Patient recovered following arrest and was able to be extubated without any notable changes in mentation. On 10/21, patient an additional 1 minute asystolic pause that spontaneously resolved. Patient with multiple episodes of prolonged sinuses pauses, concerning for complete heart block. Temporary pacemaker placed 10/22/2019. During course of stay, patient with persistent diffuse edema and bilateral pleural effusion s/p chest tube placement on the left. Patient with decreased urine output and worsening kidney function throughout hospital stay. She is now anuric with ATN. CRRT initiated 10/23/2019. Patient agreeable to having pacemaker placed as well as to initiating dialysis permanently. Pacemaker placed 10/27/2019. Plans for tunneled HD catheter today with vascular surgery. OBJECTIVE PHYSICAL EXAMINATION VITAL SIGNS: Please see below. GENERAL: Alert and oriented to person, place. Sitting up in bed eating breakfast comfortably HEENT: Normocephalic atraumatic, mild amount of bruising noted on right neck at former transvenous pacemaker site CARDIOVASCULAR: Regular rate and rhythm, mild edema noted upper thighs, midline surgical scar noted RESPIRATORY: Clear to auscultation bilaterally. ABDOMINAL: Soft, non-tender, non-distended, positive bowel sounds EXTREMITIES: Spontaneously moves all 4 extremities but generalized weakness throughout NEUROLOGICAL: A&O2, without focal deficits noted SKIN: Warm and dry. Tina noted at the site of permanent pacemaker placement near area of left clavicle. No erythema or edema or discharge noted LABORATORY DATA, IMAGING STUDIES, MICROBIOLOGY: Please see below. ASSESSMENT AND PLAN: # Asystolic cardiac arrest with recurrent episodes of cardiac pause, due to complete heart block -[employer] [facility] permanent pacemaker placed 10/27/2019 - Given chronic comorbidities and overall poor long-term prognosis, palliative care was consulted -Cardiology following. Discussed with cardiology # Acute hypoxemic and hypercapnic respiratory failure S/P cardiac arrest/pause, improving - S/p extubation 10/15, secondary to fluid overload with bilateral pleural effusions - S/p chest tube removed on 10/24/2019. -Titrate O2 to maintain SPO2 greater than 92%, currently on 2 L nasal cannula #ATN on CKD 3 requiring HD - Likely cardiorenal syndrome in the context of poor renal perfusion in setting of heart block status post CRRT - Avoid nephrotoxic agents -Plans for permanent tunneled HD catheter today. We'll likely do HD tomorrow - Patient with spontaneous voiding today for a total of 275 mL after initiation of Lasix drip at 20/hour -Discussed with nephrology #Moderate protein calorie malnutrition -By mouth intake has improved, and patient is eating majority of meals - DASH diet ordered, dietary not recommending further calorie interventions at this time. #UTI -Continue renally dosed Diflucan at 100 mg daily 14 days (through 11/05/2019) # Acutely decompensated systolic and diastolic CHF improving -Titrate oxygen to keep SPO2 greater than 92% - Isosorbide 10 mg 3 times a day - Strict I/O, daily wt, 1.5L fluid restriction #Paroxysmal Atrial Fibrillation -Hold heparin drip. Likely start oral anticoagulation in the morning #Persistent leukocytosis - Likely reactive in nature, WBC improved, manual showing no bands. - Anticipate improvement with increased perfusion #Bilateral Pleural Effusion a improving - CXR unchanged from day prior showing no resolution nor progression of fissural thickening or bibasilar densities. -Status post left-sided chest tube #Pericardial effusion with impending tamponade, exudative - s/p pericardial window 10/13 - Likely related to fluid overload #Diabetes mellitus, type 2 - A1C: 8.1%. - Continue sliding scale insulin #Pulmonary hypertension - Strive for negative fluid balance - Potential from long-standing history of sleep apnea. We will continue CPAP at night and while sleeping. #Right upper extremity DVT -Heparin gtt on hold for HD catheter. Start oral anticoagulation tomorrow # Hypertension -Hydralazine 20 mg 3 times a day #RA - On remicade at home #Morbid Obesity - Will need education with clinical improvement #Weakness and deconditioning -Will need PT/OT when transvenous pacer removed and patient no longer bed rest Resolved Hospital Problems: Afib with RVR Metabolic encephalopathy Candidasis Diet: Renal diet DVT/GI ppx: Hold heparin gtt, anticipate oral anticoagulation tomorrow. DC Pepcid as GI prophylaxis no longer indicated L/T/D: Right IJ tunneled catheter (planned for 10/28/2019) Drips: None. CODE STATUS: DNR/DNI. Son, Ministerio, TRINI. Dispo: Patient with significant improvement. We'll downgrade to PCU/stepdown. Discussed with cardiology, nephrology. Anticipate discharge possibly to rehabilitation in 2-3 days. [place] VS, I&O, 24H, [facility] Vital Signs/I&O Vital Signs Date Time Temp Pulse Resp B/P (MAP) Pulse Ox O2 Delivery O2 Flow Rate FiO2 10/28/19 20:12 129/61 10/28/19 20:00 98.5 70 18 94 Nasal Cannula 3.0 10/28/19 07:35 32 I&O- Last 24 Hours up to 6 AM 10/28/19 06:00 Intake Total 740 ml Output Total 672 ml Balance 68 ml Laboratory Data 24H LABS Laboratory Tests 2 10/27/19 22:15: Bedside Glucose (Misc Panel) 112H 10/28/19 04:25: Nucleated Red Blood Cells % (auto) 0.2H, Anion Gap 6L, Glomerular Filtration Rate 24.5L, Calcium Level 7.5L, Phosphorus Level 3.9, Albumin 1.9L 10/28/19 11:53: Bedside Glucose (Misc Panel) 193H 10/28/19 18:13: Bedside Glucose (Misc Panel) 133H 10/28/19 19:59: Bedside Glucose (Misc Panel) 207H CBC/BMP Laboratory Tests 10/28/19 04:25 Microbiology Microbiology 10/25/19 Gastrointestinal Tract Panel (PCR) - Final, Complete 10/21/19 Urine Culture - Final, Complete Yeast Like Organism SANAM ALVARENGA DO Oct 28, 2019 20:37
[2019-10-28] MEDS: ACETAMINOPHEN TAB 650MG DOSE (2X325MG) PO PRN (22:44)
[2019-10-29] VITALS (16 sets, daily range): BP systolic 96–188; BP diastolic 44–100
[2019-10-29] MEDS: IPRATROPIUM 0.5MG/ALBUTEROL 2.5MG INH SOL UD 3ML (DUONEB)(J7620) NEB PRN ×4 (04:08→23:32)
[2019-10-29] MEDS: SODIUM CHLORIDE HYPERTONIC 3% 15ML NEB SOL INH SCH ×6 (04:09→23:33)
[2019-10-29] MEDS: FLUCONAZOLE 100 MG TAB PO SCH (05:40)
[2019-10-29 06:00] LABS: BASO # 0.1 10^3/uL (0.0-0.2); BASO % 0.4 % (0.0-1.0); EOS # 0.1 10^3/uL (0.0-0.5); EOS % 0.4 % (0.0-3.0); LYMPH # 1.7 10^3/uL (1.5-5.0); LYMPH % 12.5 % (24.0-44.0); MEAN CORPUSCULAR HEMOGLOBIN 26.7 pg (27.0-33.0); MEAN CORPUSCULAR HGB CONC 31.1 g/dl (32.0-36.5); MONO # 1.5 10^3/uL (0.0-0.8); MONO % 10.9 % (0.0-5.0); NEUTROPHILS # 10.2 10^3/uL (1.5-8.5); PLATELET COUNT, AUTOMATED 273 10^3/uL (150-450); RED BLOOD COUNT 2.43 10^6/uL (4.00-5.40); WHITE BLOOD COUNT 13.6 10^3/uL (4.0-10.0)
[2019-10-29 06:06] LABS: HEMATOCRIT 20.9 % (36.0-47.0); HEMOGLOBIN 6.5 g/dl (12.0-15.5)
[2019-10-29 06:15] LABS: ALBUMIN 1.7 GM/DL (3.2-5.2); CALCIUM LEVEL 7.3 MG/DL (8.8-10.2); CREATININE FOR GFR 2.85 MG/DL (0.55-1.30); GLOMERULAR FILTRATION RATE 17.1 (>39); MAGNESIUM LEVEL 2.3 MG/DL (1.8-2.4); PHOSPHORUS LEVEL 4.4 MG/DL (2.5-4.9); POTASSIUM SERUM 3.9 MEQ/L (3.5-5.1)
[2019-10-29] MEDS: ISOSORBIDE DIN (ISORDIL) 10 MG TAB PO SCH ×3 (07:00→18:04)
[2019-10-29] MEDS: HumaLOG INSULIN (NovoLOG) PER UNIT SC SCH ×4 (07:30→20:14)
--- NOTE | 2019-10-29 07:36 | REP ---
Portable chest, 06:28 a.m., single AP view with the patient semi upright: Comparison is the PA and lateral chest of 10/28/[address] of 10/19/2019. On the comparison chest CT there were bilateral pleural effusions. These are better appreciated on the CT than on the plain film studies. On the chest CT there was a right thoracotomy tube has been removed. There are bibasilar infiltrates. Cardiac size is normal. There is a dual-chamber pacemaker, unchanged. There is a dual lumen right IJ central venous catheter with the tip in the superior vena cava in satisfactory location as an interval change. There is no pneumothorax. Electronically Signed by Long Lion MD 10/29/2019 07:28 A
--- NOTE | 2019-10-29 08:50 | IPN ---
DATE OF SERVICE: 10/29/2019 Mrs. More had several events yesterday. First of all, she received a PermaCath placement uneventfully. She was also moved from intensive care unit (ICU) to progressive care unit (PCU). This morning when I entered the room, she was eating breakfast. She tells me that she feels fairly comfortable and denies any chest pain or shortness of breath at rest. I reviewed her telemetry tracing and there have not been any arrhythmias. Blood pressure 150/69. Heart rate has been in 60s. She is afebrile. Saturation 98% on 3 liters of oxygen by nasal cannula. Her fluid balance yesterday was recorded at 770 positive. She made about 600 mL of urine and she made another 700 mL of urine today while she is on a Lasix drip. 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 I do not appreciate any distinct elevation, but with her numerous instrumentations through central veins it is challenging. Lungs reveal been bilateral crackles throughout the lung alves, diminished breath sounds over both bases. Heart exam reveals a regular rhythm. I do not appreciate any obvious gallop, rub or murmur. Abdomen is obese and soft. Extremities are free of significant edema. Peripheral pulses are palpable. Laboraties: Basic metabolic panel - sodium 136, potassium 3.9, BUN 33, creatinine 2.9, GFR 17, glucose 117, magnesium 2.3, albumin 1.7. CBC reveals WBC count 13.6, hemoglobin 6.5, hematocrit 20.9 and platelet count 273,000. Chest x-ray reveals appropriate placement of the dialysis catheter through the right internal jugular (IJ) without pneumothorax, but there are bilateral pleural effusions and interstitial infiltrates consistent with congestive heart failure. ASSESSMENT/PLAN: Mrs. More is a 78-year-old female who originally presented with pericardial effusion and eventually required pericardial window placement. The condition was further complicated by a cardiac arrest that was bradyarrhythmic in nature and she had evidence for paroxysmal atrial fibrillation and intermittent heart block. This prompted placement of a dual chamber pacemaker. The condition was further complicated by development of acute renal failure and she is currently dialysis dependent at least for near future. From a cardiac perspective as far as the atrial fibrillation is concerned, it is well rate controlled even without any AV kailyn blocking agents. She has been on telemetry in the PCU for just a short period of time, so she needs to be monitored somewhat longer. I cannot rule out that we will have to reintroduce AV kailyn blocking agents, but I am going to wait for the time being. As far as anticoagulation is concerned, her hemoglobin has dropped again since yesterday and that has been dropping two days in a row. Even though there is no toya bleeding apparent, I am reluctant to start anticoagulation in this setting. Also, there is data suggestive that even in the presence of atrial fibrillation long-term anticoagulation on dialysis patients is of questionable benefit and potential is harmful. Consequently, I am not going to restart anticoagulation today. As far congestive heart failure is concerned, unfortunately, her volume status is manipulated principally by hemodialysis. She was started on a Lasix drip and made some urine yesterday and as well as today, so I suspect that there is a reason to have some hope that she may not be dialysis dependent in the long run. Consequently, I am not going to give her angiotensin-converting enzyme (GIFTY) inhibitors or angiotensin II receptor blockers (ARBs). She will be continued on combination of hydralazine and isosorbide. Even if her blood pressure is mildly hypertensive, I am not going to increase the doses because she is going to be dialyzed shortly. She would probably benefit from blood transfusion. Her condition remains guarded, but is certainly improved. NIGEL
[2019-10-29] MEDS: **hydrALAZINE** 10 MG TAB PO SCH ×4 (09:00→20:55)
[2019-10-29] MEDS: MOM 30ML SUSPENSION UDC PO SCH (09:00)
[2019-10-29] MEDS: LIDOCAINE 5% (LIDODERM) PATCH TD SCH (09:00)
--- NOTE | 2019-10-29 12:10 | IPN ---
DATE OF SERVICE: 10/29/2019 Mrs. More is seen this morning on her bedside. She is currently being dialyzed. She was on IV Lasix drip with only minimal urine output for the last 24 hours. She denies any nausea or vomiting and remains on 3 liters oxygen. On physical examination, temperature 97 degrees Fahrenheit, heart rate 92 per minute and respiratory rate 18 per minute. Blood pressure 130/100 mmHg and oxygen saturation is 95%. Her head is atraumatic. Neck is supple and jugular venous distention (JVD) difficult to be assessed. She has an internal jugular vein dialysis catheter on right side. On left upper chest, she has her permanent pacemaker which was placed just couple of days ago. Her heart sounds are slightly distant, but without a pericardial friction rub. Lungs have diminished breath sounds bilaterally. Abdomen: Soft and nontender. Bowel sounds are normal. Extremities: Without any cyanosis or clubbing. Neurologically, she is awake, alert and oriented x3. Today's labs show WBC count 13.6, hemoglobin 6.5 and hematocrit 20.9. Platelets 273. Sodium 136, potassium 3.9, CO2 28, BUN 33 and creatinine 2.85. Calcium level is 7.3 and phosphorus 4.4. PROBLEMS: 1. Acute renal failure superimposed on chronic kidney disease. The patient remains oliguric and dialysis dependent. She is being dialyzed today and tolerating her dialysis well so far. 2. Hypoxemia, probably multifactorial, but mostly related to volume overload. We are removing about 2 liters of fluid as tolerated and she is tolerating it well. She was on Lasix drip with urine output of only about 612 during the last 24 hours. I am going to stop her Lasix drip now as she is being dialyzed and we are removing 2 liters of fluid. 3. Anemia, most likely acute blood loss, and 2 units of packed RBCs are being transfused during dialysis. The patient consented for transfusion. No heparin being used for this dialysis today. 4. Hypertension. Blood pressure seems reasonably well-controlled and no changes are being made in her antihypertensive meds. 5. Cardiac arrhythmias. Since she had her permanent pacemaker placement, she has been doing very well and remains on her chronic meds. 6. Generalized weakness and deconditioning. The patient will require some rehab and physical therapy. At present, she is still very weak.
[2019-10-29] MEDS ORDERED: HEPARIN 1,000 UNITS/ML 10ML VIAL (FOR RADIOLOGY& DIALYSIS ONLY)(J1644-10) XX ONE (12:15)
[2019-10-29] MEDS: SLF 3 ML SYR IV SCH ×2 (14:00→20:55)
[2019-10-29] MEDS ORDERED: METOPROLOL SUCC *XL* 25MG TAB (TopROL *XL*) PO ONE (14:00)
[2019-10-29] MEDS ORDERED: METOPROLOL TART 25 MG TABLET PO ONE ×2 (14:15→15:45)
[2019-10-29] MEDS ORDERED: DIGOXIN 0.25 MG TAB PO ONE ×2 (15:00→20:00)
[2019-10-29] MEDS: NYSTATIN 100,000 UNITS/GM TOPICAL PWD 15 GM TOP PRN (15:08)
[2019-10-29] MEDS: ACETAMINOPHEN TAB 650MG DOSE (2X325MG) PO PRN (15:38)
[2019-10-29] MEDS ORDERED: SLF 3 ML SYR IV PRN (16:00)
--- NOTE | 2019-10-29 16:51 | ECGEPIP ---
[facility] Test Date: 2019-10-27 Pat Name: MINA TA Department: Room: X2277-30 Gender: Female Manager Business Intelligence: AURELIA : [id number] Requested By: Chong Steven Order Number: [id number] Reading MD: David Pinto Measurements Intervals [place] Rate: 60 P: 55 CT: 161 QRS: 77 QRSD: 148 T: -81 QT: 458 QTc: 458 Interpretive Statements AV sequential paced rhythm at 60 bpm. No significant change compared with 10/27/2019 at 1933 hrs. Electronically Signed on 10-29-2019 16:50:47 EST by David Pinto
--- NOTE | 2019-10-29 17:36 | IPN ---
DATE: 10/29/2019 I was called by the nurse for Mrs. More that she went into atrial fibrillation during dialysis today. Her heart rate became quite tachycardiac into 140s and 150s. She also complained about poorly described epigastric discomfort that she has had intermittently for last several days. I ordered an oral metoprolol 25 mg that we repeated about 2 hours later and she got half a mg of digoxin by mouth (p.o.), unfortunately, so far there has not been much effect. When I came to see the patient her heart rate still was fluctuating but on average approximately 130 beats per minute. The patient at this point is comfortable. She says that her discomfort is pretty much gone but states has been present on and off throughout the day. Blood pressure otherwise is 121/62. She is afebrile. Saturation 93% on 3 liters. Her JVP does not appear high. Lungs are reasonably clear. Heart: Exam reveals irregular tachycardia. I ordered a troponin earlier today that was negative. She got 2 units of blood during dialysis. So far there is no followup CBC. ASSESSMENT/PLAN Mrs. More is a 78-year-old female with history as outlined in numerous previous notes. Unfortunately, she relapsed into atrial fibrillation during dialysis. This probably is not unexpected development because with dialysis catheter in superior vena cava she has a relatively high flow through the right atrium which very likely irritates the atria and is a trigger for atrial fibrillation. In a heart that is already known to have disposition for atrial fibrillation this is not surprising. Even though I had reluctance to anticoagulate the patient, I will give her a single dose of Eliquis 2.5 mg because I am concerned about the risk of stroke. Provided her hemoglobin is not adequately higher tomorrow morning, we will not provide chronic anticoagulation. I will continue the current treatment with digitalizing the patient and administering metoprolol. She will get additional 25 mg of metoprolol soon and additional 0.25 mg of digoxin at 8 o'clock. I hope that by tomorrow morning her heart rate will be much better controlled. I will obtain followup troponin tomorrow morning and I ordered an ECG to document the arrhythmia. I discussed this plan with the patient's son and her nurse, both of them at bedside.
[2019-10-29 18:15] LABS: HEMATOCRIT 30.9 % (36.0-47.0); MEAN CORPUSCULAR HEMOGLOBIN 26.6 pg (27.0-33.0); MEAN CORPUSCULAR HGB CONC 32.4 g/dl (32.0-36.5); MEAN CORPUSCULAR VOLUME 82.2 fl (80.0-96.0); PLATELET COUNT, AUTOMATED 251 10^3/uL (150-450); RED BLOOD COUNT 3.76 10^6/uL (4.00-5.40); WHITE BLOOD COUNT 15.4 10^3/uL (4.0-10.0)
[2019-10-29] MEDS: METOPROLOL TART 25 MG TABLET PO SCH (18:40)
--- NOTE | 2019-10-29 19:09 | IPNPDOC ---
Subjective Date Seen The patient was seen on 10/29/19. Subjective Chief Complaint/HPI Cheryl is well since transferring to the floor. Her hgb is down this morning, but vitals are stable. She's do to receive blood during HD Objective Physical Examination General Exam: Positive: No Acute Distress, Mild Distress; Negative: Alert, Cooperative Eye Exam: Positive: PERRLA, Other Eye Symptoms (redness of both eyes) ENT Exam: Positive: Atraumatic Neck Exam: Positive: Supple, JVD Chest Exam: Positive: Diminished Heart Exam: Positive: Rate Normal Telemetry: Positive: Sinus Abdomen Exam: Positive: Normal bowel sounds Extremity Exam: Negative: Clubbing, Cyanosis Neuro Exam: Positive: Normal Speech, Cranial Nerves 3-12 NL Psych Exam: Positive: Other (patient less confused this am); Negative: Mental status NL Assessment /Plan Assessment # Asystolic cardiac arrest with recurrent episodes of cardiac pause, due to complete heart block -[employer] permanent pacemaker placed 10/27/2019 - Given chronic comorbidities and overall poor long-term prognosis, palliative care was consulted -Cardiology note reviewed, adjustments made to BB # Acute hypoxemic and hypercapnic respiratory failure S/P cardiac arrest/pause, improving - S/p extubation 10/15, secondary to fluid overload with bilateral pleural effusions - S/p chest tube removed on 10/24/2019. -Titrate O2 to maintain SPO2 greater than 92%, currently on 2 L nasal cannula #ATN on CKD 3 requiring HD - Likely cardiorenal syndrome in the context of poor renal perfusion in setting of heart block status post CRRT - Avoid nephrotoxic agents - HD today #Moderate protein calorie malnutrition -By mouth intake has improved, and patient is eating majority of meals - DASH diet ordered, dietary not recommending further calorie interventions at this time. #UTI -Continue renally dosed Diflucan at 100 mg daily 14 days (through 11/05/2019) # Acutely decompensated systolic and diastolic CHF improving -Titrate oxygen to keep SPO2 greater than 92% - Isosorbide 10 mg 3 times a day - Strict I/O, daily wt, 1.5L fluid restriction #Paroxysmal Atrial Fibrillation - apixiban 2.5 mg bid - digoxin + metoprolol q6 for rate control #Persistent leukocytosis - Likely reactive in nature, WBC improved, manual showing no bands. - Anticipate improvement with increased perfusion #Bilateral Pleural Effusion a improving - CXR unchanged from day prior showing no resolution nor progression of fissural thickening or bibasilar densities. -Status post left-sided chest tube #Pericardial effusion with impending tamponade, exudative - s/p pericardial window 10/13 - Likely related to fluid overload #Diabetes mellitus, type 2 - A1C: 8.1%. - Continue sliding scale insulin #Pulmonary hypertension - Strive for negative fluid balance - Potential from long-standing history of sleep apnea. We will continue CPAP at night and while sleeping. #Right upper extremity DVT - eliquis 2.5 mg bid # Hypertension -Hydralazine 20 mg 3 times a day #RA - On remicade at home #Morbid Obesity - Will need education with clinical improvement #Weakness and deconditioning -Will need PT/OT when transvenous pacer removed and patient no longer bed rest Plan/VTE VTE Prophylaxis Ordered?: Yes (eliquis) VS, I&O, 24H, Fishbone Vital Signs/I&O Vital Signs Date Time Temp Pulse Resp B/P (MAP) Pulse Ox O2 Delivery O2 Flow Rate FiO2 10/29/19 18:40 122 118/64 10/29/19 16:00 98.4 18 93 Nasal Cannula 3.0 10/29/19 10:00 96 I&O- Last 24 Hours up to 6 AM 10/29/19 06:00 Intake Total 1720 ml Output Total 1275 ml Balance 445 ml Laboratory Data 24H LABS Laboratory Tests 2 10/28/19 19:59: Bedside Glucose (Misc Panel) 207H 10/29/19 05:36: Immature Granulocyte % (Auto) 0.8, Neutrophils (%) (Auto) 75.0H, Lymphocytes (%) (Auto) 12.5L, Monocytes (%) (Auto) 10.9H, Eosinophils (%) (Auto) 0.4, Basophils (%) (Auto) 0.4, Neutrophils # (Auto) 10.2H, Lymphocytes # (Auto) 1.7, Monocytes # (Auto) 1.5H, Eosinophils # (Auto) 0.1, Basophils # (Auto) 0.1, Nucleated Red Blood Cells % (auto) 0.0, Anion Gap 7L, Glomerular Filtration Rate 17.1L, Calcium Level 7.3L, Phosphorus Level 4.4, Magnesium Level 2.3, Albumin 1.7L 10/29/19 14:08: Bedside Glucose (Misc Panel) 140H 10/29/19 15:22: Troponin I 0.05 10/29/19 17:18: Bedside Glucose (Misc Panel) 124H 10/29/19 17:51: Nucleated Red Blood Cells % (auto) 0.0 CBC/BMP Laboratory Tests 10/29/19 05:36 10/29/19 17:51 Microbiology Microbiology 10/25/19 Gastrointestinal Tract Panel (PCR) - Final, Complete 10/21/19 Urine Culture - Final, Complete Yeast Like Organism ALEX GALLOWAY MD Oct 29, 2019 19:09
[2019-10-29] MEDS: APIXABAN 2.5 MG TAB (ELIQUIS) PO SCH (20:54)
[2019-10-29] MEDS: **NOTE PATIENT COMMENT** MISC XX SCH (20:55)
[2019-10-30] MEDS: METOPROLOL TART 25 MG TABLET PO SCH ×4 (00:30→17:39)
[2019-10-30 04:00] VITALS: BP 160/71
[2019-10-30] MEDS: IPRATROPIUM 0.5MG/ALBUTEROL 2.5MG INH SOL UD 3ML (DUONEB)(J7620) NEB PRN ×4 (04:07→23:52)
[2019-10-30] MEDS: SODIUM CHLORIDE HYPERTONIC 3% 15ML NEB SOL INH SCH ×6 (04:08→23:52)
[2019-10-30] MEDS: NYSTATIN CREAM 15 GM EXT PRN (05:15)
[2019-10-30] MEDS: NYSTATIN 100,000 UNITS/GM TOPICAL PWD 15 GM TOP PRN (05:16)
[2019-10-30 05:29] LABS: HEMATOCRIT 31.8 % (36.0-47.0); HEMOGLOBIN 10.1 g/dl (12.0-15.5); MEAN CORPUSCULAR HEMOGLOBIN 26.7 pg (27.0-33.0); MEAN CORPUSCULAR HGB CONC 31.8 g/dl (32.0-36.5); MEAN CORPUSCULAR VOLUME 84.1 fl (80.0-96.0); PLATELET COUNT, AUTOMATED 284 10^3/uL (150-450); RED BLOOD COUNT 3.78 10^6/uL (4.00-5.40); WHITE BLOOD COUNT 14.9 10^3/uL (4.0-10.0)
[2019-10-30] MEDS ORDERED: DIGOXIN 0.125 MG TAB PO SCH (06:00)
[2019-10-30] MEDS ORDERED: [UNRECOGNIZED DRUG - REMARK] XX SCH ×2 (06:00→09:00)
[2019-10-30 06:10] LABS: CALCIUM LEVEL 7.8 MG/DL (8.8-10.2); CREATININE FOR GFR 2.45 MG/DL (0.55-1.30); GLOMERULAR FILTRATION RATE 20.4 (>39); POTASSIUM SERUM 4.5 MEQ/L (3.5-5.1); TROPONIN I 0.07 NG/ML (< 0.10)
[2019-10-30] MEDS: ISOSORBIDE DIN (ISORDIL) 10 MG TAB PO SCH ×3 (06:20→16:41)
[2019-10-30] MEDS: SLF 3 ML SYR IV SCH ×3 (06:21→20:27)
[2019-10-30] MEDS: HumaLOG INSULIN (NovoLOG) PER UNIT SC SCH ×4 (07:30→20:27)
[2019-10-30 08:00] VITALS: BP 137/72
[2019-10-30] MEDS: FLUCONAZOLE 100 MG TAB PO SCH (08:32)
[2019-10-30] MEDS: **hydrALAZINE** 10 MG TAB PO SCH ×3 (08:33→20:19)
[2019-10-30] MEDS: APIXABAN 2.5 MG TAB (ELIQUIS) PO SCH ×2 (08:33→20:18)
[2019-10-30] MEDS: MOM 30ML SUSPENSION UDC PO SCH (08:34)
[2019-10-30] MEDS: LIDOCAINE 5% (LIDODERM) PATCH TD SCH (08:35)
--- NOTE | 2019-10-30 10:31 | REP ---
CHEST, SINGLE VIEW: Single view of the chest is performed and compared with prior study of 10/29/2019. Right central venous catheter and left dual-lead pacemaker appear unchanged. Right basilar infiltrate is unchanged. Left basilar infiltrate appears improved. Heart and mediastinum appear unchanged. Electronically Signed by Long Hughes MD 10/30/2019 06:38 P
--- NOTE | 2019-10-30 11:25 | IPNPDOC ---
Subjective Date Seen The patient was seen on 10/30/19. Subjective Chief Complaint/HPI Cheryl is alert, son at bedside. Having alot of loose stools. buttocks and perineal area is reddened per RN. Objective Physical Examination General Exam: Positive: No Acute Distress; Negative: Alert, Cooperative Eye Exam: Positive: PERRLA; Negative: Sclera icteric ENT Exam: Positive: Atraumatic Neck Exam: Positive: Supple, JVD Chest Exam: Positive: Rales, Diminished Heart Exam: Positive: Rate Normal Telemetry: Positive: Sinus Abdomen Exam: Positive: Normal bowel sounds Extremity Exam: Negative: Clubbing, Cyanosis Neuro Exam: Positive: Normal Speech, Cranial Nerves 3-12 NL Psych Exam: Positive: Mood NL, Other; Negative: Mental status NL, Anxiety Assessment /Plan Assessment # Asystolic cardiac arrest with recurrent episodes of cardiac pause, due to complete heart block -[employer] permanent pacemaker placed 10/27/2019 - Given chronic comorbidities and overall poor long-term prognosis, palliative care was consulted -Cardiology note reviewed, adjustments made to BB # Diarrhea - check c diff - imodium prn - place day due to reddened and irritated skin area # Acute hypoxemic and hypercapnic respiratory failure S/P cardiac arrest/pause, improving - S/p extubation 10/15, secondary to fluid overload with bilateral pleural effusions - S/p chest tube removed on 10/24/2019. -Titrate O2 to maintain SPO2 greater than 92%, currently on 2 L nasal cannula #ATN on CKD 3 requiring HD - Likely cardiorenal syndrome in the context of poor renal perfusion in setting of heart block status post CRRT - Avoid nephrotoxic agents - D/w Dr. Nadia valdiviay discharge later this week or early next week #Moderate protein calorie malnutrition -By mouth intake has improved, and patient is eating majority of meals - DASH diet ordered, dietary not recommending further calorie interventions at this time. #UTI -Continue renally dosed Diflucan at 100 mg daily 14 days (through 11/05/2019) # Acutely decompensated systolic and diastolic CHF improving -Titrate oxygen to keep SPO2 greater than 92% - Isosorbide 10 mg 3 times a day - Strict I/O, daily wt, 1.5L fluid restriction #Paroxysmal Atrial Fibrillation - apixiban 2.5 mg bid - digoxin + metoprolol q6 for rate control #Persistent leukocytosis - Likely reactive in nature, WBC improved, manual showing no bands. - Anticipate improvement with increased perfusion #Bilateral Pleural Effusion a improving - CXR unchanged from day prior showing no resolution nor progression of fissural thickening or bibasilar densities. -Status post left-sided chest tube #Pericardial effusion with impending tamponade, exudative - s/p pericardial window 10/13 - Likely related to fluid overload #Diabetes mellitus, type 2 - A1C: 8.1%. - Continue sliding scale insulin #Pulmonary hypertension - Strive for negative fluid balance - Potential from long-standing history of sleep apnea. We will continue CPAP at night and while sleeping. #Right upper extremity DVT - eliquis 2.5 mg bid # Hypertension -Hydralazine 20 mg 3 times a day #RA - On remicade at home #Morbid Obesity - Will need education with clinical improvement #Weakness and deconditioning - PT/OT consult Plan/VTE VTE Prophylaxis Ordered?: Yes (eliquis) VS, I&O, 24H, Fishbone Vital Signs/I&O Vital Signs Date Time Temp Pulse Resp B/P (MAP) Pulse Ox O2 Delivery O2 Flow Rate FiO2 10/30/19 08:33 137/72 10/30/19 08:00 3.0 10/30/19 08:00 97.9 60 18 95 Nasal Cannula 10/29/19 10:00 96 I&O- Last 24 Hours up to 6 AM 10/30/19 06:00 Intake Total 1400 ml Output Total 2000 ml Balance -600 ml Laboratory Data 24H LABS Laboratory Tests 2 10/29/19 14:08: Bedside Glucose (Misc Panel) 140H 10/29/19 15:22: Troponin I 0.05 10/29/19 17:18: Bedside Glucose (Misc Panel) 124H 10/29/19 17:51: Nucleated Red Blood Cells % (auto) 0.0 10/29/19 20:11: Bedside Glucose (Misc Panel) 83 10/30/19 04:56: Nucleated Red Blood Cells % (auto) 0.0, Anion Gap 5L, Glomerular Filtration Rate 20.4L, Calcium Level 7.8L, Troponin I 0.07# CBC/BMP Laboratory Tests 10/29/19 17:51 10/30/19 04:56 Microbiology Microbiology 10/25/19 Gastrointestinal Tract Panel (PCR) - Final, Complete 10/21/19 Urine Culture - Final, Complete Yeast Like Organism ALEX GALLOWAY MD Oct 30, 2019 11:25
--- NOTE | 2019-10-30 11:27 | IPN ---
DATE: 10/30/2019 Mrs. More tells me that she is feeling relatively well but there is several issues going on. Fortunately her atrial fibrillation self terminated yesterday afternoon and she converted back to sinus rhythm and she has remained in sinus rhythm overnight. Her blood pressure tolerated all administered medications. She has a lot of soreness in her buttocks and there are mild decubiti according to the nurse that led to introduction of a Peck catheter in order to relieve some of the irritation. The patient denies any dyspnea even though she does appear visibly short of breath just laying in hospital bed. Denies any chest pain today. PHYSICAL EXAMINATION: Elderly female, appears to be in mild respiratory distress even just talking, even though she does not subjectively report any dyspnea. Last vital signs blood pressure 137/72, heart rate has been mostly 60s, sinus rhythm. She is afebrile. Saturation 95% on 3 liters of oxygen by nasal cannula. Fluid balance yesterday was recorded as negative 800, weight has not been recorded this morning as yet. Most of the output was urine, she made 2500 mL. She is alert and oriented. Again, I have a hard time assessing her JVP. It does look mildly elevated even though with central dialysis catheter it is a little challenging. Lungs are revealing bilateral end inspiratory rhonchi and crackles throughout both lung alves, minimally diminished breath sounds over both bases. Heart exam regular rhythm. I do not appreciate any gallop or rub. Abdomen is soft. There is no peripheral edema. LABORATORIES: CBC WBC count of 14.9, hemoglobin 10, hematocrit 31.8, platelet count 284,000. Basic metabolic panel sodium 137, potassium 4.5, BUN 35, creatinine 2.5 and glucose 94. Troponin was 0.07 ASSESSMENT/PLAN: Mrs. More is a 78-year-old female who has been in the hospital now for a prolonged period of time. The current ongoing issues from cardiac perspective are: 1. Atrial fibrillation. 2. Congestive heart failure. As far as the atrial fibrillation is concerned, I put her on Eliquis yesterday. So far her hemoglobin level appropriately increased after administration of 2 units of packed red blood cells. There are no visible signs of bleeding. Consequently, I would continue anticoagulation until we have a better idea about frequency of atrial fibrillation. As far as the rate is concerned, she is in sinus rhythm, relatively bradycardiac but in atrial fibrillation she was quite tachycardic and consequently I will continue both metoprolol and digoxin for at least a few days. Hopefully we will be able to make a transition to slow release metoprolol once we have a better feeling over a longer horizon. As far as the congestive heart failure is concerned, she still appears volume overloaded to me, especially by lung physical exam. The chest x-ray is not totally convincing, but clinically it seems likely. Again, she made 2500 mL of urine yesterday and consequently I believe there is a potential that she may recover her renal function and may not be dialysis dependent in the run, so I am going to keep her on isosorbide and hydralazine for LV dysfunction and blood pressure control. If by any chance it becomes clear-cut though that she will not come off dialysis, then we should make a transition to GIFTY inhibitors or ARB. Her condition seems to be about stable at this point. Even though she is vastly improved compared to a week ago, she still has a long way to meaningful recovery.
[2019-10-30] MEDS ORDERED: HEPARIN 1,000 UNITS/ML 10ML VIAL (FOR RADIOLOGY& DIALYSIS ONLY)(J1644-10) IV ONE (12:45)
[2019-10-30 14:50] VITALS: BP 149/67
[2019-10-30] MEDS: LOPERAMIDE 2 MG CAPLET PO PRN ×2 (15:04→17:39)
[2019-10-30 15:59] LABS: CLOSTRIDIUM DIFFICILE PCR NEGATIVE (NEGATIVE)
[2019-10-30 16:00] VITALS: BP 118/58
[2019-10-30 20:00] VITALS: BP 148/62
[2019-10-30] MEDS: **NOTE PATIENT COMMENT** MISC XX SCH (20:28)
[2019-10-31] VITALS: BP 138/62
[2019-10-31 00:21] LABS: ABG HCO3 24.3 MEQ/L (22.0-26.0); ABG O2 SATURATION 85.5 % (95.0-99.0); ABG PARTIAL PRESSURE CO2 38.2 mmHg (35.0-45.0); ABG PARTIAL PRESSURE O2 50.6 mmHg (75.0-100.0); ABG STANDARD HCO3 24.3 MEQ/L (22.0-26.0); ABG TOTAL CO2 25.5 MEQ/L (23.0-31.0); ABG pH (ARTERIAL) 7.421 UNITS (7.350-7.450)
[2019-10-31] MEDS: METOPROLOL TART 25 MG TABLET PO SCH ×3 (00:51→06:40)
[2019-10-31] MEDS: SODIUM CHLORIDE HYPERTONIC 3% 15ML NEB SOL INH SCH ×5 (03:17→21:07)
[2019-10-31] MEDS: IPRATROPIUM 0.5MG/ALBUTEROL 2.5MG INH SOL UD 3ML (DUONEB)(J7620) NEB PRN ×3 (03:17→21:07)
[2019-10-31 04:00] VITALS: BP 156/67
[2019-10-31 04:46] LABS: HEMATOCRIT 30.1 % (36.0-47.0); HEMOGLOBIN 9.6 g/dl (12.0-15.5); MEAN CORPUSCULAR HEMOGLOBIN 26.7 pg (27.0-33.0); MEAN CORPUSCULAR HGB CONC 31.9 g/dl (32.0-36.5); MEAN CORPUSCULAR VOLUME 83.8 fl (80.0-96.0); PLATELET COUNT, AUTOMATED 277 10^3/uL (150-450); RED BLOOD COUNT 3.59 10^6/uL (4.00-5.40); WHITE BLOOD COUNT 15.9 10^3/uL (4.0-10.0)
[2019-10-31 05:14] LABS: CALCIUM LEVEL 7.2 MG/DL (8.8-10.2); CREATININE FOR GFR 3.73 MG/DL (0.55-1.30); GLOMERULAR FILTRATION RATE 12.6 (>39); POTASSIUM SERUM 4.7 MEQ/L (3.5-5.1)
[2019-10-31] MEDS: ISOSORBIDE DIN (ISORDIL) 10 MG TAB PO SCH ×4 (06:39→16:31)
[2019-10-31] MEDS: SLF 3 ML SYR IV SCH ×3 (06:40→22:00)
[2019-10-31] MEDS ORDERED: FUROSEMIDE 40 MG/4 ML VIAL (J1940) IV ONE (06:45)
[2019-10-31] MEDS: HumaLOG INSULIN (NovoLOG) PER UNIT SC SCH ×2 (07:30→18:00)
[2019-10-31 08:00] VITALS: BP 139/62
[2019-10-31 08:40] LABS: DIGOXIN LEVEL 2.6 NG/ML (0.5-2.0)
[2019-10-31 08:46] LABS: ABG BASE EXCESS 0.3 (-2.0-2.0); ABG HCO3 25.1 MEQ/L (22.0-26.0); ABG PARTIAL PRESSURE O2 76.5 mmHg (75.0-100.0); ABG STANDARD HCO3 24.7 MEQ/L (22.0-26.0); ABG TOTAL CO2 26.3 MEQ/L (23.0-31.0); ABG pH (ARTERIAL) 7.404 UNITS (7.350-7.450)
[2019-10-31] MEDS: APIXABAN 2.5 MG TAB (ELIQUIS) PO SCH ×2 (09:00→21:00)
[2019-10-31] MEDS: MOM 30ML SUSPENSION UDC PO SCH (09:00)
[2019-10-31] MEDS: METOPROLOL SUCC (TopROL XL) 100MG *XL* TAB PO SCH (09:00)
[2019-10-31] MEDS: FLUCONAZOLE 100 MG TAB PO SCH (09:00)
[2019-10-31] MEDS: **hydrALAZINE** 10 MG TAB PO SCH ×3 (09:00→21:00)
[2019-10-31] MEDS: LIDOCAINE 5% (LIDODERM) PATCH TD SCH (09:12)
--- NOTE | 2019-10-31 09:34 | IPN ---
DATE: 10/30/2019 Mrs. More is seen this morning on her bedside. She was dialyzed yesterday and she tolerated her dialysis treatment very well. Today she seems to be more short of breath. She denies any fever or chills. PHYSICAL EXAMINATION: Temperature 97.9 degrees Fahrenheit, heart rate 62 per minute and respiratory rate 24 per minute. Blood pressure 137/72 mmHg and oxygen saturation 95% on 2-3 liters oxygen. Head is atraumatic. Neck is supple and JVD difficult to be assessed. She has no oral thrush or ulcers. Heart sounds are regular and lungs with bilateral rhonchi and wheezing. Abdomen soft and nontender and bowel sounds are normal. Extremities without any cyanosis or clubbing. Neurologically, she is awake, alert and oriented times three. She has a pacemaker on left upper chest and a PermaCath on her right upper chest. Today's labs show WBC count 14.9, hemoglobin 10.1 and hematocrit 31.8. BUN 30 and creatinine 2.45 while sodium is 137 and potassium 4.5. PROBLEMS: 1. Acute renal failure superimposed on chronic kidney disease. No recovery of kidney function so far and she remains dialysis dependent. She was dialyzed yesterday and we will plan next dialysis again on Friday. 2. Respiratory insufficiency. Her volume status remains decompensated and in fact she is more short of breath today, though 2 liters of fluid was removed with dialysis yesterday and she also had about 700 mL of urine. Lasix drip has been stopped and nursing staff reports that she still has some incontinent urine. We will ultrafiltrate her and try to remove 3 liters of fluid with ultrafiltration due to her worsening respiratory status. 3. Anemia. Her anemia has improved following transfusion yesterday when she received 2 units of packed RBCs. 4. Cardiac arrhythmias. She has a permanent pacemaker which is functioning well and she did not have any further pauses. 5. Generalized weakness and deconditioning. The patient is very weak and deconditioned and is likely to require significant rehab once her medical condition gets optimized.
--- NOTE | 2019-10-31 09:39 | REP ---
CT BRAIN WITHOUT IV CONTRAST: CT brain performed without IV contrast. Coronal reconstruction images are performed. Comparison made with prior study, 10/12/2019. There is again moderate atrophy. There is no midline shift or mass effect. Chronic small vessel ischemic changes are seen in the periventricular white matter. 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 No acute intracranial hemorrhage is seen. There is no extra-axial fluid collection. There are vascular calcifications in the carotid siphons. IMPRESSION: Stable, chronic changes. No acute intracranial finding. Electronically Signed by Long Hughes MD 10/31/2019 06:28 P
--- NOTE | 2019-10-31 09:51 | REP ---
CHEST, SINGLE VIEW: Single view of the chest is performed and compared to prior study of 10/30/2019. Bibasilar opacities remain stable. Cardiomegaly is unchanged, and there is calcification of the thoracic aorta. Mediastinal silhouette is unchanged. Right central venous catheter and left pacemaker are again noted. IMPRESSION: Stable exam. Electronically Signed by Long Hughes MD 10/31/2019 06:29 P
[2019-10-31 12:00] VITALS: BP 145/68
--- NOTE | 2019-10-31 12:24 | REP ---
CT CHEST WITHOUT IV CONTRAST: CT chest performed without IV contrast and compared to prior studies, most recently 10/19/2019. 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 At that level, there appears to be material within the trachea. There is mild increase in patchy upper lung infiltrates bilaterally. Lower lobe infiltrates/atelectasis appear similar to the prior study. There is a mild to moderate right pleural effusion, which appears to have mildly decreased in size since the prior study. There is a mild left effusion, which has mildly increased since the prior exam. Subcentimeter mediastinal lymph nodes are identified. There is mild cardiomegaly. There is no pericardial effusion. There are degenerative changes of the spine. The visualized upper abdominal structures are grossly unremarkable. 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 Mild increase in bilateral upper lung infiltrates, with bibasilar infiltrates/atelectasis appearing similar to the prior exam. Mild to moderate right effusion has mildly decreased since prior study. Mild left effusion has mildly increased since prior study. Electronically Signed by Long Hughes MD 10/31/2019 06:38 P
--- NOTE | 2019-10-31 12:49 | IPNPDOC ---
Subjective Date Seen The patient was seen on 10/31/19. Subjective Chief Complaint/HPI Cheryl has developed altered mental status this am. She's able to following simple commands and is moving all 4 ext. Objective Physical Examination General Exam: Positive: No Acute Distress, Other (non-labored breathing); Negative: Alert, Cooperative Eye Exam: Positive: PERRLA, Conjunctiva & lids normal; Negative: Sclera icteric ENT Exam: Positive: Atraumatic (no facial droop) Neck Exam: Positive: Supple, JVD Chest Exam: Positive: Rales, Diminished Heart Exam: Positive: Rate Normal Telemetry: Positive: Sinus Abdomen Exam: Positive: Normal bowel sounds Extremity Exam: Negative: Clubbing, Cyanosis Skin Exam: Negative: Rash Neuro Exam: Positive: Normal Speech, Cranial Nerves 3-12 NL Psych Exam: Positive: Other (encephalopathic this morning); Negative: Mental status NL, Anxiety Assessment /Plan Assessment Acute toxic metabolic encephalopathy - CT head is normal, repeat ABG is normal - can consider MRI brain to r/o acute stroke, she does have MRI compliant pacemaker - suspect this is likely metabolic # 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 permanent pacemaker placed 10/27/2019 -Given chronic comorbidities and overall poor long-term prognosis, palliative care was consulted - cards managing # Diarrhea c diff - imodium prn - place day due to reddened and irritated skin area # Acute hypoxemic and hypercapnic respiratory failure S/P cardiac arrest/pause, improving - S/p extubation 10/15, secondary to fluid overload with bilateral pleural effusions - S/p chest tube removed on 10/24/2019. -Titrate O2 to maintain SPO2 greater than 92%, currently on 2 L nasal cannula #ATN on CKD 3 requiring HD - Likely cardiorenal syndrome in the context of poor renal perfusion in setting of heart block status post CRRT - Avoid nephrotoxic agents #Moderate protein calorie malnutrition -By mouth intake has improved, and patient is eating majority of meals - DASH diet ordered, dietary not recommending further calorie interventions at this time. #UTI -Continue renally dosed Diflucan at 100 mg daily 14 days (through 11/05/2019) # Acutely decompensated systolic and diastolic CHF improving -Titrate oxygen to keep SPO2 greater than 92% - Isosorbide 10 mg 3 times a day - Strict I/O, daily wt, 1.5L fluid restriction #Paroxysmal Atrial Fibrillation - apixiban 2.5 mg bid - digoxin + metoprolol q6 for rate control #Persistent leukocytosis - Likely reactive in nature, WBC improved, manual showing no bands. - Anticipate improvement with increased perfusion #Bilateral Pleural Effusion - CXR unchanged from day prior showing no resolution nor progression of fissural thickening or bibasilar densities. -Status post left-sided chest tube #Pericardial effusion with impending tamponade, exudative - s/p pericardial window 10/13 - Likely related to fluid overload #Diabetes mellitus, type 2 - A1C: 8.1%. - Continue sliding scale insulin #Pulmonary hypertension - Strive for negative fluid balance - Potential from long-standing history of sleep apnea. We will continue CPAP at night and while sleeping. #Right upper extremity DVT - eliquis 2.5 mg bid # Hypertension -Hydralazine 20 mg 3 times a day #RA - On remicade at home #Morbid Obesity - Will need education with clinical improvement #Weakness and deconditioning - PT/OT consult Plan/VTE VTE Prophylaxis Ordered?: Yes (eliquis) VS, I&O, 24H, Fishbone Vital Signs/I&O Vital Signs Date Time Temp Pulse Resp B/P (MAP) Pulse Ox O2 Delivery O2 Flow Rate FiO2 10/31/19 12:00 97.4 60 22 145/68 (93) 96 Nasal Cannula 3.0 10/29/19 10:00 96 I&O- Last 24 Hours up to 6 AM 10/31/19 06:00 Intake Total 590 ml Output Total 3000 ml Balance -2410 ml Laboratory Data 24H LABS Laboratory Tests 2 10/30/19 15:05: Clostridium difficile [id number] PRESUMPTIVE NEGATIVE, Clostridium difficile Toxin (PCR) NEGATIVE 10/30/19 16:36: Bedside Glucose (Misc Panel) 232H 10/30/19 19:45: Bedside Glucose (Misc Panel) 157H 10/30/19 23:58: Blood Gas Bicarbonate Standard 24.3, Arterial Blood pH 7.421, Arterial Blood Partial Pressure CO2 38.2, Arterial Blood Partial Pressure O2 50.6L, Arterial Blood Total CO2 25.5, Arterial Blood HCO3 24.3, Arterial Blood Base Excess 0.0, Arterial Blood Oxygen Saturation 85.5L 10/31/19 04:35: Nucleated Red Blood Cells % (auto) 0.0, Anion Gap 7L, Glomerular Filtration Rate 12.6L, Calcium Level 7.2L, Digoxin Level 2.6*H 10/31/19 08:33: Blood Gas Bicarbonate Standard 24.7, Arterial Blood pH 7.404, Arterial Blood Partial Pressure CO2 41.0, Arterial Blood Partial Pressure O2 76.5, Arterial Blood Total CO2 26.3, Arterial Blood HCO3 25.1, Arterial Blood Base Excess 0.3, Arterial Blood Oxygen Saturation 95.0 CBC/BMP Laboratory Tests 10/31/19 04:35 Microbiology Microbiology 10/31/19 Blood Culture, Received Pending 10/25/19 Gastrointestinal Tract Panel (PCR) - Final, Complete 10/21/19 Urine Culture - Final, Complete Yeast Like Organism ALEX GALLOWAY MD Oct 31, 2019 12:41
[2019-10-31] MEDS ORDERED: PIPERACILLIN/TAZOBACTAM SOD 2.25 GM in D5W MINI-BAG PLUS 50 ML IV ONE (14:00)
--- NOTE | 2019-10-31 14:06 | ECGEPIP ---
[facility] Test Date: 2019-10-29 Pat Name: MINA TA Department: Room: U9161-37 Gender: Female Principal Law Clerk: MATI : 1940 Requested By: Dru Menjivar Order Number: [id number] Reading MD: Dru Menjivar Measurements Intervals [place] Rate: 77 P: 107 CT: 174 QRS: 92 QRSD: 141 T: 9 QT: 339 QTc: 384 Interpretive Statements ELECTRONIC ATRIAL PACEMAKER LEFT BUNDLE BRANCH BLOCK SIMILAR TO 10/28/19 Electronically Signed on 10-31-2019 14:06:17 EST by Dru Menjivar
--- NOTE | 2019-10-31 14:16 | IPN ---
DATE: 10/31/2019 Mrs. More had dialysis yesterday, about 3 liters of fluid were removed. She apparently felt well afterwards, but this morning was quite lethargic and no medications were taken. When I saw her around 10 o'clock in the morning though she was sleeping but I could easily arouse her and she was appropriate and answered questions appropriately. She denied any chest pain or shortness of breath and actually she was telling me that she was feeling quite well. Vital signs: Blood pressure 139/62, heart rate in 60s, sinus rhythm, afebrile. Saturation 95% on 3 liters of oxygen. Fluid balance yesterday was negative about 2800, mostly on account of 3 liters removed by dialysis. Weight was not recorded this morning as yet. Her JVP is not high. Lungs are reasonably clear even though her air movement is fair due to poor inspiratory effort. Heart exam reveals regular rhythm. I do not appreciate any gallop or rub. Abdomen is soft. Extremities are free of edema. Neurologically she is somewhat somnolent, but otherwise intact. LABORATORY: WBC count 15.9, hemoglobin 9.6, hematocrit 30, platelet count 277,000. Basic metabolic panel sodium 137, potassium 4.7, BUN 53, creatinine 3.7 and glucose 118, calcium 7.2. Digoxin level this morning was 2.6. Mrs. More is a 78-year-old lady who originally presented with large pericardial effusion and had pericardial window placed. She subsequently developed problems with acute renal failure and has been dialysis dependent since. There was evidence for cardiomyopathy with approximately moderate or moderately severe LV systolic dysfunction and sick sinus syndrome, for which she got a pacemaker. At this point, I think it is starting to look more and more likely that she will remain dialysis dependent. From a cardiac point of view, as far as the atrial fibrillation is concerned, I am going to change her Toprol to once a day medications that will make the administration a little bit easier. We will hold her digoxin tomorrow because the level is quite high. She is on apixaban which will be continued. As far as the heart failure is concerned, the volume is principally controlled by dialysis at this point. She still is a little volume overloaded in my opinion, but she will be dialyzed again tomorrow and I hope that a fair amount of volume will be removed.
[2019-10-31 16:00] VITALS: BP 166/64
--- NOTE | 2019-10-31 19:15 | IPN ---
DATE: 10/31/2019 The patient was seen and examined this morning at the request of the hospitalist service. She had previously been seen by pulmonary and mold stripper for her history of pericardial effusion as well as with a history of cardiac arrest. The patient was noted this morning to be more lethargic and having more altered mental status. She was also noted to have some more shortness of breath and tachypnea. She has not had any fevers overnight and she currently denied any chest pain or abdominal pain and no nausea or vomiting. PHYSICAL EXAMINATION: Vital signs: 97.4, pulse 60, respirations 22, blood pressure 145/68, oxygen saturation 96% on 3 units nasal cannula. Intake yesterday of 240 mL, out 3 liters. General: The patient is an elderly female, is lying in bed, lethargic, but is arousable and answers questions appropriately. She appears to have some tachypnea. HEENT: Normocephalic, atraumatic. Moist mucous membranes. Neck is supple. Unable to appreciate any JVD. Cardiac: Regular rate and rhythm. Unable to appreciate any murmurs or rubs. The patient has a scar in place from her implantable pacemaker on the left side as well as a midline incision from her previous pericardial window. Pulmonary: There is diminished breath sounds bilaterally with evidence of decreased breath sounds and crackles at the bases. Abdomen: Obese, soft, nontender, nondistended. Extremities: There is no significant lower extremity edema noted bilaterally. LABORATORIES: WBC is 15.9, hemoglobin 9.6, platelets are 277. Chemistry: Sodium 137, potassium 4.3, chloride is 103, bicarbonate is 27, BUN is 53, creatinine is 3.75, glucose is 118, potassium is 7.2. Troponins times two are negative. Albumin is 1.7 from 10/29/2019. ABG: pH is 7.404, pCO2 of 41, pO2 of 76.5. IMAGING STUDIES: Head CT shows moderate atrophy. No midline shift. 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 CT chest showed some respiratory motion in the lung windows but with a possible tracheoesophageal fistula seen at the level of the aortic arch. There is also some increase in the patchy upper lobe infiltrates bilaterally as well as with lower lobe atelectasis bilaterally and a mild to moderate right pleural effusion as well as a mild left pleural effusion. There is some mild cardiomegaly noted. There is no pericardial effusion. ASSESSMENT/PLAN: Ms. More is a 78-year-old female with history of hypertension, diabetes, systolic CHF, CKD, atrial fibrillation who had presented initially with a fall and was also noted on admission to have large pericardial effusion with signs of cardiac tamponade requiring an emergent pericardial window. Postoperatively, the patient's course was complicated with cardiac arrest secondary to a complete heart block. She was intubated and on mechanical ventilation for a brief course before being successfully extubated. She then had issues with recurrent pauses and required placement of a permanent pacemaker by cardiology. The patient also had issues with acute hypoxemic and hypercarbic respiratory failure secondary to decompensated CHF and fluid overload requiring a chest tube for drainage of her effusions. The patient was also noted during her admission to have acute on chronic renal failure requiring initiation of dialysis initially with CRRT and now with regular hemodialysis which she has been receiving. Today, the patient was noted to be more lethargic as well as noted to have some respiratory distress. She had a repeat CT chest done for evaluation which was noted to have a possible tracheoesophageal fistula and pulmonary was reconsulted. - The patient's CT chest was reviewed. There does appear to be some respiratory motion which may be limiting some of the findings and causing artifact but there is suspicious finding for possible tracheoesophageal fistula. Her CT does have bilateral opacities with atelectasis and consolidation in the lower lobes as well as some faint patchy opacities in the upper lobes. At her bedside the patient was given sips of water and she did not have any significant coughing with drinking and as per her staff member at the bedside, she was not noted to have significant coughing with eating. Therefore this may possibly be artifact, however, she does require further evaluation for the potential tracheoesophageal fistula. - Would get a barium swallow for the patient tomorrow morning. She does need be kept nothing by mouth for at least 8 hours prior to the study. - Would make her strict nothing by mouth for now including medications and fluids. Would also have head of bed elevation to at least 45 degrees to prevent reflux and aspiration. - The patient does have leukocytosis although has been afebrile. She was started on antibiotics with Zosyn for concern for possible aspiration pneumonia particularly if there is any tracheoesophageal fistula. - Will continue with nasal cannula oxygen supplementation and titrate to keep an oxygen saturation above 90%. - The patient is having fluid removal during dialysis and previously was on a Lasix drip as well. Would continue with fluid management as per renal and cardiology. - The patient has a history of BENEDICT and is on C-PAP at night. - The patient does have significant deconditioning as well as some protein malnutrition with her complicated and prolonged hospital stay. If the patient were to have a tracheoesophageal fistula, surgical intervention would likely carry with it an increased risk of mortality perioperatively. Her other options would then be potential stenting of her esophagus as well as her trachea and she would require interventional pulmonary for those procedures. DVT prophylaxis on Eliquis for history of right upper extremity DVT. Code status is DO NOT RESUSCITATE/DO NOT INTUBATE.
[2019-10-31 20:00] VITALS: BP 150/62
[2019-10-31] MEDS: **NOTE PATIENT COMMENT** MISC XX SCH (21:00)
[2019-11-01] VITALS (7 sets, daily range): BP systolic 109–150; BP diastolic 50–68
[2019-11-01] MEDS: SODIUM CHLORIDE HYPERTONIC 3% 15ML NEB SOL INH SCH ×6 (00:43→20:57)
[2019-11-01] MEDS: IPRATROPIUM 0.5MG/ALBUTEROL 2.5MG INH SOL UD 3ML (DUONEB)(J7620) NEB PRN ×5 (00:43→20:57)
[2019-11-01] MEDS: **NOTE PATIENT COMMENT** MISC XX SCH (03:30)
[2019-11-01] MEDS: PIPERACILLIN/TAZOBACTAM SOD 2.25 GM in D5W MINI-BAG PLUS 50 ML IV SCH ×2 (05:22→17:08)
[2019-11-01] MEDS: SLF 3 ML SYR IV SCH ×3 (05:23→22:10)
[2019-11-01 05:36] LABS: HEMATOCRIT 30.5 % (36.0-47.0); HEMOGLOBIN 9.6 g/dl (12.0-15.5); MEAN CORPUSCULAR HEMOGLOBIN 26.7 pg (27.0-33.0); MEAN CORPUSCULAR HGB CONC 31.5 g/dl (32.0-36.5); MEAN CORPUSCULAR VOLUME 84.7 fl (80.0-96.0); PLATELET COUNT, AUTOMATED 298 10^3/uL (150-450)
[2019-11-01] MEDS: HumaLOG INSULIN (NovoLOG) PER UNIT SC SCH ×4 (06:00→17:21)
[2019-11-01 06:06] LABS: CALCIUM LEVEL 7.6 MG/DL (8.8-10.2); CREATININE FOR GFR 3.8 MG/DL (0.55-1.30); GLOMERULAR FILTRATION RATE 12.3 (>39); POTASSIUM SERUM 4.8 MEQ/L (3.5-5.1)
[2019-11-01] MEDS: ISOSORBIDE DIN (ISORDIL) 10 MG TAB PO SCH ×3 (06:08→16:46)
--- NOTE | 2019-11-01 08:09 | IPN ---
DATE: 11/01/2019 Mrs. More tells me that she is feeling about the same as yesterday. She remains essentially bedridden, but denies any symptoms. Specifically, denies any chest pain or shortness of breath. Her vital signs this morning reveal blood pressure 150/62. Heart rate has been consistently in 60s, atrially paced. Saturation 94% on 3 liters of oxygen by nasal cannula. She did not make any urine yesterday. Weight is up to 73.2 kg according to bed scale. She is alert, oriented and appropriate. Her jugular venous pulse (JVP) does not appear high, but it is difficult to sales enablement consultant. Lungs reveal bilateral end inspiratory crackles. I do not appreciate any distinct rhonchi. Heart Exam: Regular rhythm without distinct gallop. Abdomen is soft. No peripheral edema. Neurologically, there is generalized weakness, but no focal signs. LABORATORIES: WBC count 28, hemoglobin 9.6, hematocrit 30, platelet count 298,000. Basic metabolic panel with sodium 139, potassium 4.8, BUN 65, creatinine 3.8 and glucose 98. ASSESSMENT/PLAN: From a cardiac prospective, Mrs. More remained stable. At this point, it seems very likely that she will remain dialysis dependent. Yet, I am still going to give her a chance at least one more day, if we do not see any improvement in urine output, then will switch her from a combination of isosorbide and hydralazine to ARBs. As far as the atrial fibrillation is concerned, she is now in sinus rhythm and is on low-dose apixaban. I do believe based on the chest x-ray this morning, there is again a component of volume overload, even though the very high white cell count indicates that she probably has also underlying infection. Management of her infectious disease (ID) issues remains with the primary team. No medication changes on my part today.
--- NOTE | 2019-11-01 08:27 | REP ---
Portable chest x-ray: Single view. History: Pleural effusion. Comparison study: October 31, 2019. Findings: Monitoring electrodes are seen. A central venous tunnel catheter is seen in place with its tip in the expected location of the superior vena cava. A bipolar pacemaker is noted in the right heart via the left side with skin darrick adjacent to its power plant in the subclavicular soft tissues. There is no evidence of pneumothorax or hydrothorax. There is some plate-like atelectasis in the right base and right perihilar region. Mild pleural thickening is noted along the left lateral chest unchanged. Mitral annular calcification is observed. Heart size is unchanged. Impression: Status post pacemaker. Right base plate-like atelectasis. There is minimal plate-like atelectasis in the right perihilar region as well. Electronically Signed by Nicolas Barboza MD 11/01/2019 09:34 A
[2019-11-01] MEDS: APIXABAN 2.5 MG TAB (ELIQUIS) PO SCH ×2 (09:00→21:00)
[2019-11-01] MEDS: FLUCONAZOLE 100 MG TAB PO SCH ×2 (09:00→16:48)
[2019-11-01] MEDS ORDERED: HEPARIN 1,000 UNITS/ML 10ML VIAL (FOR RADIOLOGY& DIALYSIS ONLY)(J1644-10) XX ONE (11:00)
--- NOTE | 2019-11-01 13:15 | IPNPDOC ---
Subjective Date Seen The patient was seen on 11/01/19. Subjective Chief Complaint/HPI Cheryl is more alert this morning. Breathing is not labored, requiring 3 LPM. BG 95-108 since NPO status initiated Objective Physical Examination General Exam: Positive: No Acute Distress, Other (less confused this am, more alert. Breathing comfortably); Negative: Alert, Cooperative Eye Exam: Positive: PERRLA, Conjunctiva & lids normal, EOMI; Negative: Sclera icteric ENT Exam: Positive: Atraumatic (no facial droop) Neck Exam: Positive: Supple Chest Exam: Positive: Rales, Diminished Heart Exam: Positive: Rate Normal Telemetry: Positive: Sinus Abdomen Exam: Positive: Normal bowel sounds Extremity Exam: Negative: Clubbing, Cyanosis Skin Exam: Negative: Rash Neuro Exam: Positive: Normal Speech, Normal Tone, Cranial Nerves 3-12 NL Psych Exam: Positive: Other (encephalopathic this morning); Negative: Mental status NL, Anxiety Assessment /Plan Assessment Acute toxic metabolic encephalopathy - CT head is normal, repeat ABG is normal - suspect this is likely metabolic related to worsening pulm infiltrates # 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 If confirms fistula then will need to survey family and patient's desire for invasive treatment. Will require transfer to [place] if desires stenting. If negative then will need speech eval for aspiration pneumonia - aspiration precautions - start D5 at 30 ml/hr to stave off hypoglycemia, d/w nephrology (Isaac) Elevated digoxin level - hold further digoxin administration, until level normalizes # Asystolic cardiac arrest with recurrent episodes of cardiac pause, due to complete heart block -[employer] permanent pacemaker placed 10/27/2019 -Given chronic comorbidities and overall poor long-term prognosis, palliative care was consulted - cards managing # Diarrhea - c diff negative - imodium prn - place day due to reddened and irritated skin area # Acute hypoxemic and hypercapnic respiratory failure S/P cardiac arrest/pause, improving - S/p extubation 10/15, secondary to fluid overload with bilateral pleural effusions - S/p chest tube removed on 10/24/2019. -Titrate O2 to maintain SPO2 greater than 92%, currently on 2 L nasal cannula #ATN on CKD 3 requiring HD - Likely cardiorenal syndrome in the context of poor renal perfusion in setting of heart block status post CRRT - Avoid nephrotoxic agents #Moderate protein calorie malnutrition - npo status currently, previously on DASH diet #UTI -Continue renally dosed Diflucan at 100 mg daily 14 days (through 11/05/2019) # Acutely decompensated systolic and diastolic CHF improving -Titrate oxygen to keep SPO2 greater than 92% - Isosorbide 10 mg 3 times a day - Strict I/O, daily wt, 1.5L fluid restriction #Paroxysmal Atrial Fibrillation - apixiban 2.5 mg bid - digoxin x 1 dose + metoprolol q6 for rate control #Persistent leukocytosis - worsened today, likely due to aspiration pneumonia #Bilateral Pleural Effusion - CXR unchanged from day prior showing no resolution nor progression of fissural thickening or bibasilar densities. -Status post left-sided chest tube #Pericardial effusion with impending tamponade, exudative - s/p pericardial window 10/13 - Likely related to fluid overload #Diabetes mellitus, type 2 - A1C: 8.1%. - accucheks q6 while NPO - D5@ 30 ml #Pulmonary hypertension - Strive for negative fluid balance - Potential from long-standing history of sleep apnea. We will continue CPAP at night and while sleeping. #Right upper extremity DVT - eliquis 2.5 mg bid # Hypertension -Hydralazine 20 mg 3 times a day #RA - On remicade at home #Morbid Obesity - Will need education with clinical improvement #Weakness and deconditioning - PT/OT consult Plan/VTE VTE Prophylaxis Ordered?: Yes (eliquis) VS, I&O, 24H, [facility] Vital Signs/I&O Vital Signs Date Time Temp Pulse Resp B/P (MAP) Pulse Ox O2 Delivery O2 Flow Rate FiO2 11/01/19 08:20 3.0 11/01/19 08:00 98.5 60 18 140/50 (80) 91 Nasal Cannula 10/29/19 10:00 96 I&O- Last 24 Hours up to 6 AM 11/01/19 06:00 Intake Total 0 ml Balance 0 ml Laboratory Data 24H LABS Laboratory Tests 2 10/31/19 14:28: Bedside Glucose (Misc Panel) 95 10/31/19 18:18: Bedside Glucose (Misc Panel) 102 11/01/19 00:40: Bedside Glucose (Misc Panel) 108 11/01/19 05:03: Nucleated Red Blood Cells % (auto) 0.0, Anion Gap 7L, Glomerular Filtration Rate 12.3L, Calcium Level 7.6L CBC/BMP Laboratory Tests 11/01/19 05:03 Microbiology Microbiology 10/31/19 Blood Culture - Preliminary, Resulted No growth after 24 hours . All specim... 10/25/19 Gastrointestinal Tract Panel (PCR) - Final, Complete ALEX GALLOWAY MD Nov 01, 2019 13:15
[2019-11-01] MEDS: METOPROLOL SUCC (TopROL XL) 100MG *XL* TAB PO SCH (13:29)
[2019-11-01] MEDS: **hydrALAZINE** 10 MG TAB PO SCH ×3 (13:29→21:00)
[2019-11-01] MEDS: D5W 1,000 ML IV SCH (13:35)
--- NOTE | 2019-11-01 14:14 | IPN ---
DATE OF VISIT: 10/31/2019 Mrs. More is seen this morning on her bedside. Nursing staff called me this morning and reported worsening shortness of breath and altered mentation. Apparently, she did not have a good night due to altered mentation and confusion. She had a CT scan of head done this morning, which did not show any acute infarct or bleed. She underwent ultrafiltration yesterday and we were able to remove about 3 liters of fluid without any difficulty. Patient herself is not able to provide much information at this point as she is somewhat lethargic and confused. On physical exam, temperature 97.8 degrees Fahrenheit, heart rate 60 per minute and respiratory rate is 20 per minute. Blood pressure 139/62 mmHg and oxygen saturation 95% on 3 liters oxygen. Head is atraumatic. Neck veins not abnormally distended. Hemodialysis catheter in right internal jugular vein is intact without any signs of infection. Heart sounds are regular and distant. Lungs have bilateral scattered rhonchi. Abdomen is soft and bowel sounds are normal. Extremities without any cyanosis or clubbing. She does not have any peripheral edema. Neurologically, she is arousable but sleepy and somewhat confused. Not able to answer questions at this time. Today's labs show WBC count 15.9, hemoglobin 9.6 and hematocrit 30.1. Platelets 277. Sodium 137, potassium 4.7, CO2 27, BUN 53 and creatinine 3.73. Glucose 118 and calcium 7.2. PROBLEMS: 1. Oliguric acute renal failure. Patient has been dialysis dependent and was dialyzed just yesterday. We will plan to dialyze her again tomorrow. At this point, I do not see any emergent indication for dialysis. 2. Shortness of breath and hypoxemia. Most likely this is related to infectious causes and not due to volume overload. We have removed fluid aggressively over last week and her volume status has improved significantly and remains compensated. Her oral intake is minimal at present. I am going to get a CT scan of chest for further evaluation as I feel that she probably has either aspiration or worsening pneumonia due to just weakness. 3. Anemia. Her anemia has improved since she was transfused and remains stable. No emergent need for a transfusion at present. 4. Altered mentation. Probably related to infectious problems as acute stroke has been ruled out with CT scan or she may have a small stroke which did not show up in the CT scan as yet. She will need to be monitored. I would suggest to keep her nothing by mouth for now. 5. Generalized weakness and deconditioning. She has been very weak due to significant complications and illness for several days. She is likely to require rehab. However, today she is very weak to even get out of bed. It remains to be seen how she makes progress over next few days.
[2019-11-01] MEDS: MOM 30ML SUSPENSION UDC PO SCH (15:06)
[2019-11-01] MEDS: LIDOCAINE 5% (LIDODERM) PATCH TD SCH (15:13)
[2019-11-01] MEDS ORDERED: AMIODARONE HCL 150 MG in IV 1 EA IV STA (16:25)
[2019-11-01] MEDS: LIDOCAINE 5% (LIDODERM) PATCH TD PRN (17:30)
[2019-11-02] MEDS: IPRATROPIUM 0.5MG/ALBUTEROL 2.5MG INH SOL UD 3ML (DUONEB)(J7620) NEB PRN ×7 (00:59→23:34)
[2019-11-02] MEDS: SODIUM CHLORIDE HYPERTONIC 3% 15ML NEB SOL INH SCH ×7 (00:59→23:34)
[2019-11-02 04:00] VITALS: BP 165/74
[2019-11-02] MEDS ORDERED: DIAPER RELIEF PASTE (DESITIN) 60GM TOP SCH (04:00)
[2019-11-02] MEDS ORDERED: DIAPER RELIEF PASTE (DESITIN) 60GM TOP PRN (04:15)
[2019-11-02] MEDS: PIPERACILLIN/TAZOBACTAM SOD 2.25 GM in D5W MINI-BAG PLUS 50 ML IV SCH ×2 (05:35→17:18)
[2019-11-02] MEDS: **NOTE PATIENT COMMENT** MISC XX SCH (05:37)
[2019-11-02] MEDS: [UNRECOGNIZED DRUG - REMARK] XX SCH (06:00)
[2019-11-02] MEDS: SLF 3 ML SYR IV SCH ×3 (06:17→21:14)
[2019-11-02] MEDS: ISOSORBIDE DIN (ISORDIL) 10 MG TAB PO SCH (06:18)
[2019-11-02] MEDS: HumaLOG INSULIN (NovoLOG) PER UNIT SC SCH ×4 (06:45→18:00)
[2019-11-02 08:00] VITALS: BP 128/61
[2019-11-02] MEDS: MOM 30ML SUSPENSION UDC PO SCH (09:00)
--- NOTE | 2019-11-02 09:00 | REP ---
PORTABLE CHEST X-RAY: Single view. HISTORY: Pleural effusion. COMPARISON STUDY: November 01, 2019. FINDINGS: A bipolar pacemaker is installed via the left side with intact right heart leads. EKG monitoring electrodes are seen. A central venous tunnel catheter is noted in place with its tip in the expected location of the superior vena cava. There is an area of linear opacity in the right upper lobe consistent with plate-like atelectasis. Markings are improved in the right base. There are increased markings along the left heart border and overlying the heart in the lower lobe on the left which are unchanged. This may reflect atelectatic change versus developing infiltrate. Electronically Signed by Nicolas Barboza MD 11/02/2019 05:53 P
--- NOTE | 2019-11-02 09:02 | IPN ---
DATE: 11/02/2019 Mrs. More unfortunately continues to have one problem after another. 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 She is a lot more alert today than she was yesterday. She appropriately answered questions but I do not think she comprehend what this finding actually represents Vital Signs: Blood pressure is 165/74, heart rate has been in 60s. She is afebrile. Saturation 94% on 3 liters of oxygen. Weight is 73.2 kg. She is alert and oriented and for the most part appropriate. Lungs are reasonably clear with the exception of bases. I do not appreciate crackles or wheezing. Heart exam reveals currently regular rhythm without gallop or rub. Abdomen is soft, and no edema. LABORATORIES: Basic metabolic panel reveals sodium 139, potassium 4.8, BUN 65, creatinine 3.8, glucose 98. CBC: WBC count 28, hemoglobin 9.3, hematocrit 30.5, platelet count 288,000 ASSESSMENT AND PLAN: Mrs. 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 The management of this is per pulmonary and primary care teams. From cardiac perspective, she is now back in sinus rhythm. Because her oral intake now is complicated, I think that we will have to take her off Eliquis. I will for the time being leave her without anticoagulation and will give her amiodarone iv daily if only for a few days trying to maintain sinus rhythm. I am a little bit concerned that she is not in a situation where she can handle any invasive interventions or surgeries. No new contributions from cardiac point of view. I will also discontinue hydralazine, isosorbide and metoprolol because of NPO status. If needs to be we may need to use iv medications instead. Once oral intake is established (? PEG tube) we can restart her current meds. BRANDOND
[2019-11-02 09:03] LABS: BASO % 0.2 % (0.0-1.0); EOS % 0.1 % (0.0-3.0); LYMPH # 1.7 10^3/uL (1.5-5.0); LYMPH % 8.5 % (24.0-44.0); MONO # 1.4 10^3/uL (0.0-0.8); MONO % 6.8 % (0.0-5.0); NEUTROPHILS # 16.8 10^3/uL (1.5-8.5); NEUTROPHILS % 83.8 % (36.0-66.0)
--- NOTE | 2019-11-02 09:09 | IPN ---
DATE: 11/01/2019 SUBJECTIVE: The patient was seen and examined at the bedside today morning during hemodialysis. She was tolerating the hemodialysis procedure well. 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 OBJECTIVE: Vital Signs: Temperature is 97.3 degrees Fahrenheit, blood pressure 126/57, pulse is 96, respiratory rate of 12, saturating 91% on nasal cannula at 3 liters. Intake and Output: There is no urine output recorded. Weight in the bed scale is 73.2 kg. PHYSICAL EXAMINATION: General: The patient is awake, alert, oriented times two, laying in bed, in no apparent distress. Head and Neck Exam: Extraocular muscles intact. Pupils equally round and reactive to light. Mucous membranes are moist. Neck is supple. There is no significant jugular venous distention (JVD). She has a right internal jugular (IJ) tunneled hemodialysis catheter which is being used for dialysis. Cardiovascular: S1, S2. Regular rate. No edema of the bilateral lower extremities. Respiratory: Chest is clear to auscultation bilaterally. Bilateral equal air entry. No rales or rhonchi. Abdomen: Soft, obese, positive bowel sounds. Nontender. No organomegaly. Musculoskeletal: No clubbing or cyanosis. Pulses are 2+. RESIDENT CARE SUPERVISOR: No focal deficit. The patient is drowsy, but she follows commands and moves extremities. LAB REVIEW: CBC showed WBC of 28, hemoglobin 9.6, platelets of 298. BMP showed sodium 139, potassium 4.8, chloride 106, bicarb 26, BUN 65, creatinine 3.8, calcium 7.6. Microbiology: Blood cultures preliminary that were sent yesterday are negative so far. IMAGING: A chest x-ray was done today morning which showed status post pacemaker, right base plate-like atelectasis, and there was plate-like atelectasis in the right perihilar region as well. CURRENT INPATIENT MEDICATIONS: The patient's medications were all reviewed by myself. Digoxin is on hold because of high levels yesterday. The patient has been started on D5W at 30 mL an hour. ASSESSMENT/PLAN: 1. Acute oliguric renal failure. The patient is being dialyzed at this time. Ultrafiltration goal will be around 1.5 liters as tolerated by her blood pressure. 2. Shortness of breath and tracheoesophageal fistula. The patient is currently n.p.o. She has been started on IV fluid hydration. The primary team is considering transferring the patient to a higher level of care if the patient's family members still want aggressive level of care. 3. 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 Volume status is significantly better with dialysis, 1.5 liters of fluid will be removed today.
[2019-11-02 09:31] LABS: C REACTIVE PROTEIN QUANTITATIV 17.6 MG/DL (0.00-0.30)
--- NOTE | 2019-11-02 09:42 | REP ---
CT abdomen and pelvis without oral or IV contrast: History: Leukocytosis, rule out abscess. Comparison abdomen and pelvis CT study October 19, 2019. CT findings: Digital preliminary technician semiconductor development radiograph demonstrates an unremarkable bowel gas pattern. On axial CT images there are patchy areas of consolidation in the right middle lobe and lingula. There are atelectatic changes with bronchiectasis and air bronchograms in the lower lobes bilaterally, left more extensively than right. These changes are more pronounced than on the October 19, 2019 study. The lingular and right middle lobe disease is new. There is less pleural fluid at both lung bases. The previously noted left chest tube has been removed. Cardiomegaly with pacemaker leads. No adrenal lesion is seen. There is a granulomatous calcification in the left lobe of the liver. Spleen is unremarkable. The gallbladder is mildly distended similar to the prior study from October 19, 2019. No gallstone is seen by CT. No abnormality is noted within the pancreas. Kidneys are morphologically intact. Vascular calcifications noted. There is no evidence of hydronephrosis or nephrolithiasis. No retroperitoneal mass or adenopathy is observed. No abnormal fluid collection or abscess is seen in the perineal cavity. Small and large bowel loops are unremarkable. A normal appendix is visible in the right lower abdomen posteriorly. Impression: No abscess seen. New areas of pulmonary parenchymal consolidation in the right middle lobe and lingula at the lung bases. Atelectasis and air bronchograms in the lower lobes bilaterally. Small amount of right pleural fluid. Somewhat distended but stable gallbladder. The patient is status post hysterectomy. Electronically Signed by Nicolas Barboza MD 11/02/2019 05:54 P
[2019-11-02] MEDS: D5W 1,000 ML IV SCH (09:57)
[2019-11-02] MEDS: AMIODARONE HCL 150 MG in IV 1 EA IV SCH (10:08)
[2019-11-02 10:24] LABS: HEMATOCRIT 32.1 % (36.0-47.0); HEMOGLOBIN 10.2 g/dl (12.0-15.5); MEAN CORPUSCULAR HEMOGLOBIN 26.4 pg (27.0-33.0); MEAN CORPUSCULAR HGB CONC 31.8 g/dl (32.0-36.5); MEAN CORPUSCULAR VOLUME 83.2 fl (80.0-96.0); PLATELET COUNT, AUTOMATED 311 10^3/uL (150-450); RED BLOOD COUNT 3.86 10^6/uL (4.00-5.40); WHITE BLOOD COUNT 19.8 10^3/uL (4.0-10.0)
[2019-11-02] MEDS ORDERED: E-Z-PAQUE 96% w/w SUSP 176GM BTL As Ordered ONE (10:25)
[2019-11-02 10:26] LABS: CALCIUM LEVEL 7.9 MG/DL (8.8-10.2); CREATININE FOR GFR 3.45 MG/DL (0.55-1.30); GLOMERULAR FILTRATION RATE 13.7 (>39); POTASSIUM SERUM 4.1 MEQ/L (3.5-5.1)
[2019-11-02] MEDS: LIDOCAINE 5% (LIDODERM) PATCH TD SCH (11:19)
[2019-11-02 12:00] VITALS: BP 138/63
[2019-11-02] MEDS: LACTOBACILLUS ACIDOPHILUS CAP (BACID) PO SCH ×3 (12:30→21:00)
--- NOTE | 2019-11-02 14:58 | IPN ---
DATE: 11/02/2019 SUBJECTIVE: The patient is seen and examined this morning at bedside. No acute events overnight. She still has not gone for her barium esophagram. VITAL SIGNS: Temperature 97.3, pulse 68, respiratory rate 18, blood pressure 128/61, saturating 96% on 3 liters nasal cannula. 180 mL in and 1500 mL out in the last 24 hours. PHYSICAL EXAMINATION: GENERAL: Elderly appearing female who is awake, alert, and in no acute distress. Answering questions appropriately. HEENT: Head is normocephalic, atraumatic. Extraocular muscles intact. Pupils are equal, round and reactive to light. Nares patent. Mucous membranes are moist. No jugular venous distention (JVD) appreciated. CARDIAC: Regular rate and rhythm. Normal S1, S2. Unable to appreciate any murmurs, gallops or rubs. CHEST: Scar in the left upper quadrant of the chest, status post pacemaker placement with darrick in place. Wound is clean, dry and indurated. RESPIRATORY: Diminished breath sounds bilaterally with faint crackles at the bases but no wheezing. No rhonchi. ABDOMEN: Obese, soft, nontender, nondistended. EXTREMITIES: No lower extremity edema in bilateral extremities. LABORATORY STUDIES: White blood cell count of 19.8, hemoglobin 10.2, hematocrit 32.1, platelet count of 311. Sodium of 133, potassium 4.1, chloride 96, bicarbonate 29, BUN 34, creatinine 3.45, glucose 80, calcium 7.9, C-reactive protein is 17.6, procalcitonin is pending. IMAGING: CT of the abdomen and pelvis without contrast performed -- no abscess seen. New areas of pulmonary parenchymal consolidation in the right middle lobe and lingula at the lung bases. Atelectasis and air bronchograms in the lower lobes bilaterally. Small amount of right pleural fluid. Somewhat distended but stable gallbladder. The patient is status post hysterectomy. Chest x-ray showing possible air bronchograms present in the left middle and upper lobe, possible air bronchogram in right upper lobe. Compared to 11/01/2019 study, right lung base markings are improved. Left lower lobe and left middle lobe showing possible areas of atelectasis. ASSESSMENT AND PLAN: Ms. More is a 78-year-old female with a history of hypertension, diabetes, diastolic congestive heart failure (CHF), chronic kidney disease, atrial fibrillation who presented initially with fall and was also noted on admission to have large pericardial effusion with signs of cardiac tamponade requiring an emergent pericardial window. Postoperatively, the patient's course was complicated with cardiac arrest secondary to a complete heart block. She was intubated and on mechanical ventilation for a brief course before being successfully extubated. She then had issues with recurrent pauses and required placement of a permanent pacemaker by cardiology. The patient also had issues with acute hypoxemic and hypercarbic respiratory failure secondary to decompensated congestive heart failure (CHF) with fluid overload requiring a chest tube for drainage of her effusions. The patient was also noted during her admission to have acute on chronic renal failure requiring initiation of dialysis, initially with CRRT and now with regular hemodialysis, which she has been receiving. Several days ago the patient had a chest CT done for evaluation of respiratory distress, which showed a possible tracheoesophageal fistula requiring our consultation. The patient was unable to have barium esophagram done, as she needed to be in dialysis most of the day. She did go down to receive the study and we await the results of that study. The patient should continue to be kept strict nothing by mouth, including medications and fluids. She should also have her head of the bed elevated to at least 45 degrees to prevent reflux and aspiration. The patient continues to have leukocytosis but has remained afebrile. She is continued on Zosyn out of concern for possible aspiration pneumonia, which is especially relevant given her TE fistula. We will continue with nasal cannula oxygen supplementation and titrate to keep oxygen saturations above 90%. Continue with fluid management per renal and cardiology. The patient has a history of obstructive sleep apnea and is on continuous positive airway pressure (CPAP) at night. We did discuss with the patient today that in the event that she had a tracheoesophageal fistula that she would likely need surgical intervention by meals of pulmonary stenting, as well as other possible surgical interventions, and that if she did not want this that she would likely need a feeding tube in place to ensure that she would not aspirate any food that she was eating. While she did seem to understand what we were saying, she did not really have much of a response. We will discuss these options again if the results of the study show she has a fistula. The patient is on Eliquis for history of right upper extremity deep vein thrombosis (DVT). Code status: The patient is DO NOT RESUSCITATE, DO NOT INTUBATE. I, Fernanda Gutierrez, have conducted and independent examination of the patient and agree with the plan as detailed above by the resident with the additional corrections: Ms. More has had a complicated hospital course including cardiac tamponade with hx pericardial window, cardiac arrest with complete heart block s/p pacemaker, CHF and KAELYN on CKD now on HD who was noticed to have AMS and increased leukocytosis. CT chest showed worsening infiltrates in the lower lobes consistent with aspiration pneumonia with a questionable tracheo-esophageal fistula. Patient's CT was limited by respiratory motion so this may have been artifact particularly as she has not had any risk factors such as prolonged inbutation, prolonged NG or OGT or malignancy to contribute to formation of a tracheoesophageal fistula. Patient then had a barium esophagram performed which did not show any evidence of a tracheo-esophageal fistula. Patient likely with aspiration pneumonia which is improving with antibiotics. Would continue with HOB elevation, aspiration precautions and speech/swallow to assist with techniques for swallowing. Patient is continuing with dialysis for her renal failure and for fluid management and cardiology is on board for rate control for her atrial fibrillation. Please do not hesitate to call if any further questions or concerns. MTDD
[2019-11-02 16:00] VITALS: BP 132/42
--- NOTE | 2019-11-02 17:50 | IPN ---
DATE: 11/02/2019 SUBJECTIVE: The patient was seen and examined at the bedside today morning. She was dialyzed yesterday. She tolerated the hemodialysis procedure. There was 1.5 liters of fluid removed. The patient was getting ready to go to radiology when I saw her in the morning. She denies any active complaints at this time apart from mild persistent shortness of breath. OBJECTIVE: Vital signs: Temperature is 97.3 degrees Fahrenheit, blood pressure 128/61, pulse is 60, respiratory rate of 18, saturating 96% on nasal cannula at 3 liters. Intake and output. Ultrafiltration with hemodialysis was 1500 mL. Urine output is 250 mL since overnight. Weight in the bed scale was 73.2 kg yesterday. PHYSICAL EXAMINATION: GENERAL: The patient is awake, alert, oriented times two, lying in bed in no apparent distress. HEAD AND NECK: Extraocular muscles intact. Pupils equally round and reactive to light. Mucous membranes are moist. Neck is supple. There is no jugular venous distention (JVD). CARDIOVASCULAR: S1, S2, regular rate. She has a left-sided automatic implantable cardioverter-defibrillator (AICD). Jugular venous distention (JVD) is not elevated. No significant lower extremity edema was noted. RESPIRATORY: Decreased breath sounds at the bases with mild inspiratory crackles at the base on the right side. ABDOMEN: Soft, obese. Positive bowel sounds. Nontender. MUSCULOSKELETAL: No clubbing or cyanosis. Pulses are 2+. CENTRAL NERVOUS SYSTEM: No focal deficit. Power is 5/5 in bilateral upper extremities. LABORATORY REVIEW: CBC showed WBC of 19.8, hemoglobin 10.2, platelets are 311. BMP showed sodium 133, potassium 4.1, chloride 96, bicarbonate 29, BUN 34, creatinine 3.4, calcium 7.9. C-reactive protein is 17.6. Microbiology: Blood cultures are pending so far, and they are negative. IMAGING: CT scan of the abdomen and pelvis without contrast was done today, which showed no abscesses. There were new areas of pulmonary parenchymal consolidation in the right middle lobe and lingula at the lung bases. Atelectasis and air bronchograms in the lower lobes bilaterally. The patient also had barium swallow study done today. Official report is pending. CURRENT INPATIENT MEDICATIONS: The patient's medications were all reviewed by myself. There have been some changes to medications today since yesterday. She is currently on amiodarone 150 mg intravenous (IV) daily. She continues to been IV antibiotics. She continues to be on IV fluid hydration at this time. Eliquis has been stopped. Digoxin has also been stopped because the patient is nothing by mouth. Oral hydralazine has been stopped. Isosorbide has been stopped, and metoprolol has also been stopped. ASSESSMENT AND PLAN: 1. Acute oliguric renal failure. The patient continues to be dialysis dependent. She was dialyzed yesterday. Next hemodialysis session will be tomorrow morning. 2. Shortness of breath and tracheoesophageal fistula. The patient is currently on IV antibiotics for new findings on CT scan abdomen and pelvis. She also had the contrast swallow study done today. Official report is pending. 3. Combined systolic and diastolic congestive heart failure. Volume status is optimal at this time. Most of her respiratory symptoms are most likely secondary to infection and aspiration now. 4. Atrial fibrillation. He has been started on IV amiodarone. Oral medications have been stopped by cardiology. Anticoagulation is also on hold.
--- NOTE | 2019-11-02 17:59 | REP ---
Examination Requested: Esophagram Barium Swallow Reason For Exam/Comment: Evaluate for tracheoesophageal fistula Esophagram: The procedure was performed MAGI Barbosa, under the direct supervision of Dr. Barboza. The images were reviewed with Dr. Barboza. Liquid barium was given in the supine oblique position, in order to perform a limited single contrast esophagram examination. Oral and pharyngeal stages of the examination were unremarkable. Esophageal transport is efficient and there is no esophagitis, stricture, or mucosal ring noted. There is no evidence of a tracheoesophageal fistula. Impression: 1. Negative esophagram. 0.1 minutes of fluoroscopy time was utilized for this procedure. Some fluoroscopic images are performed with last image hold technology. These images require no additional radiation. Reviewed by MAGI Martinez 11/02/2019 12:21 P Electronically Signed by Nicolas Barboza MD 11/02/2019 05:51 P
[2019-11-02 20:00] VITALS: BP 133/60
[2019-11-02] MEDS: NYSTATIN 100,000 UNITS/GM TOPICAL PWD 15 GM TOP SCH (21:14)
[2019-11-03] VITALS (7 sets, daily range): BP systolic 91–160; BP diastolic 50–98
--- NOTE | 2019-11-03 00:01 | CR ---
DATE OF CONSULTATION: 11/02/2019 HISTORY OF PRESENT ILLNESS: Cheryl More is a 78-year-old female with a history of congestive heart failure, who first presented to the hospital on October 13, 2019 with chief complaint of altered mental status and history of a recent mechanical fall. When she was first admitted, she was found to have atrial fibrillation with rapid ventricular response, elevated white blood count at [address] of the chest showed left lower lobe pneumonia, as well as bilateral pleural effusions and cardiomegaly with a very large pericardial effusion. Cardiothoracic surgery was subsequently consulted and the patient underwent pericardial window, as well as bilateral chest tube placement. The patient's hospitalization was then complicated further by complete heart block requiring pacemaker placement by Dr. Steven on October 27, 2019. Subsequently, the patient went into acute renal failure and required first continuous renal replacement therapy (CRRT) and is now on hemodialysis. Her antibiotic course is as follows: Cefazolin x3 doses for surgical prophylaxis, Ceftriaxone with zithromax x1 dose, switched to zosyn and Doxycycline from 10/13/19 to 10/20/19, She was restarted on Zosyn on 10/31/2019 after she developed SOB and worsening leukocytosis Today, the patient reports she has low back pain and some epigastric pain. She is coughing intermittently and not producing much sputum. Her granddaughter is at the bedside, who reports that she seems to be herself. She seems to be improving. The patient is unable to tell me where she is and who her granddaughter is and she does not know the name of the hospital, the year or the date. Infectious disease was consulted due to increasing white blood count and inflammatory markers of sed rate and C-reactive protein (CRP) in the absence of obvious signs of infection. PAST MEDICAL HISTORY: 1. Diabetes. 2. Osteoarthritis. 3. Rheumatoid arthritis. 4. Hypertension. 5. Coronary artery disease. 6. Congestive heart failure. PAST SURGICAL HISTORY: 1. Cholecystectomy 2. Two sections. SOCIAL HISTORY: She quit smoking 34 years ago. She denies alcohol or illicit drug use. MEDICATIONS AT HOME: - Tylenol 650 mg as needed for pain - amlodipine 5 mg daily - Lasix 20 mg daily - glimepiride 1 mg daily - Remicade IV every 8 weeks - loratadine 10 mg daily - quinapril 20 mg daily - tacrolimus twice a day and her eye drops - tobramycin eye drops 3 daily. OBJECTIVE: Her vitals at this time are temperature of 97.0, pulse of 60, respiratory rate of 21, blood pressure of 132/42 and pulse oximetry of 96% on 2 liters nasal canula. GENERAL: She is lying in bed. She is calm in no acute distress, cooperative, very pleasant. Head is normocephalic, atraumatic. HEENT very poor dentition. Her extraocular movements are intact. Pupils are equally round and reactive to light. Her mucous membranes are moist. Neck is supple with no thyromegaly, no lymphadenopathy. CHEST: She has even chest rise. LUNGS: She has rhonchi bilaterally in the middle to upper lobes decreased breath sounds in the lower lobes bilaterally. HEART: irregularly irregular with no murmurs, rubs or gallops. ABDOMEN: Soft nontender to palpation with no masses or organomegaly. EXTREMITIES: vesicular/ eschar linear 6 cm rash on her inner left thigh covered with bandage skin extensive macerated rash in her gluteal crest extending around to her anus LYMPHATICS: She has no enlarged lymph nodes. PSYCHIATRIC: She is only oriented to person and place, not time and to exact location and she does not know who the president is. NEURO: Unable to asses due to her confusion moving all extremities and follows commands. LABORATORY: Her complete blood count (CBC) today demonstrates a white blood cell count of 19.8 down from 28 yesterday, hemoglobin of 10.2, hematocrit of 32.1 and platelet count of 311. Her chemistries demonstrate a sodium of 133, potassium of 4.1, carbon dioxide of 29 a BUN of 34 and a creatinine of 3.45. Her C-reactive protein (CRP) is 17.6, which is up from 4.58 yesterday. Her calcitonin was found to be 0.90. Her fluid cultures from pleural fluid and her pericardial fluid; first her pericardial fluid had 3,481 white cells with a 32% mononuclear percentage and 67% polymorphonuclear cells and her pleural fluid had about 600 white blood cells with a predominant mononuclear percentage versus polynuclear cells. In addition, her urine culture grew a yeast-like organism and the Gram stain and body fluid culture from the pleural fluid was finalized and had no growth anaerobically. In addition, we are still waiting for the results from the acid fast and the mycobacterial, as well as the fungal smear of the pleural fluid times two from October 13 and October 17. Her aerobic and anaerobic culture from October 13 of her pericardial fluid was negative and all blood cultures have been negative. Chest CT on October 31, 2019. 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 Mild to moderate right effusion has mildly decreased since prior study and mild left effusion has mildly increased since prior study. we discussed with the radiologist, Dr. Barboza, who reports that the esophagogram was essentially normal. abdomen and pelvis CT today no abscess was seen. New areas of pulmonary parenchymal consolidation in the right middle lobe and lingula at the lung bases, atelectasis and air bronchograms in the lower lobes bilaterally, small amount of right pleural fluid, somewhat distended, but stable gallbladder and the patient is status post hysterectomy. ASSESSMENT: 1.78 year old female with pericardial tamponade / pleural effusion exudate in nature SP pericardial window all cultures remained negative treated with zosyn .She was off 1 week of antibiotics developed fever/ pneumonia concerning for aspiration VS hospital aquired infection She was restarted on zosyn 2. Possible shingle infection left thigh healing not on treatment PLAN: Agree with continuation of Zosyn with possible aspiration pneumonia versus aspiration pneumonitis. As stated before, we discussed with Dr. Barboza the findings of possible tracheoesophageal fistula on CT chest and in the absence of any trauma or prolonged intubation or instrumentation in the area, it is unlikely that this is a true tracheoesophageal fistula on his first read on the barium esophagram today. It appears that there may be no tracheoesophageal fistula. The patient has been nothing by mouth to my understanding and discussions have been taking place with the family regarding possibly feeding tube placement. For now it is acceptable to continue her Zosyn as her elevated white blood count may be reactive in this case. In regards to her pleural effusion and pericardial effusion, primary review of the results due to the PMN predominance of the fluid, it is most likely empyema, but the source of infection is yet unknown. We are still waiting for culture results of the fungal culture and acid fast stain. Finally, the area of rash on the left inner thigh of the patient appears to resemble shingles. At this point, it is too late to be treating with antivirals as it has likely been there for some time, but does follow a certain dermatomal pattern that is concerning for shingles. The patient does not complain of any pain in her left inner thigh at this time. We will continue to monitor this patient and see to her progress. If you have any questions in the interim, please do not hesitate to let us know. MTDD
[2019-11-03] MEDS: SODIUM CHLORIDE HYPERTONIC 3% 15ML NEB SOL INH SCH ×5 (03:25→19:43)
[2019-11-03] MEDS: IPRATROPIUM 0.5MG/ALBUTEROL 2.5MG INH SOL UD 3ML (DUONEB)(J7620) NEB PRN ×2 (03:25→19:43)
[2019-11-03] MEDS: SLF 3 ML SYR IV SCH ×3 (05:21→20:07)
[2019-11-03] MEDS: [UNRECOGNIZED DRUG - REMARK] XX SCH (05:22)
[2019-11-03] MEDS: PIPERACILLIN/TAZOBACTAM SOD 2.25 GM in D5W MINI-BAG PLUS 50 ML IV SCH ×2 (05:50→18:18)
[2019-11-03] MEDS: HumaLOG INSULIN (NovoLOG) PER UNIT SC SCH ×4 (06:00→18:18)
[2019-11-03 08:15] LABS: BASO % 0.3 % (0.0-1.0); EOS # 0.1 10^3/uL (0.0-0.5); EOS % 0.4 % (0.0-3.0); HEMATOCRIT 31.7 % (36.0-47.0); HEMOGLOBIN 10.2 g/dl (12.0-15.5); LYMPH # 1.4 10^3/uL (1.5-5.0); LYMPH % 9.8 % (24.0-44.0); MEAN CORPUSCULAR HEMOGLOBIN 26.4 pg (27.0-33.0); MEAN CORPUSCULAR HGB CONC 32.2 g/dl (32.0-36.5); MEAN CORPUSCULAR VOLUME 82.1 fl (80.0-96.0); NEUTROPHILS # 11.7 10^3/uL (1.5-8.5); NEUTROPHILS % 82.1 % (36.0-66.0); PLATELET COUNT, AUTOMATED 316 10^3/uL (150-450); RED BLOOD COUNT 3.86 10^6/uL (4.00-5.40); WHITE BLOOD COUNT 14.2 10^3/uL (4.0-10.0)
[2019-11-03 08:41] LABS: CALCIUM LEVEL 7.4 MG/DL (8.8-10.2); CREATININE FOR GFR 5.14 MG/DL (0.55-1.30); GLOMERULAR FILTRATION RATE 8.7 (>39); POTASSIUM SERUM 3.9 MEQ/L (3.5-5.1)
[2019-11-03] MEDS: MOM 30ML SUSPENSION UDC PO SCH (09:00)
[2019-11-03] MEDS: AMIODARONE HCL 150 MG in IV 1 EA IV SCH (09:29)
[2019-11-03] MEDS: LIDOCAINE 5% (LIDODERM) PATCH TD SCH (09:30)
[2019-11-03] MEDS: FLUCONAZOLE 100 MG TAB PO SCH (09:30)
[2019-11-03] MEDS: NYSTATIN 100,000 UNITS/GM TOPICAL PWD 15 GM TOP SCH ×2 (09:30→20:07)
[2019-11-03] MEDS: LACTOBACILLUS ACIDOPHILUS CAP (BACID) PO SCH ×4 (09:30→20:06)
[2019-11-03] MEDS: LIDOCAINE 5% (LIDODERM) PATCH TD PRN (09:31)
--- NOTE | 2019-11-03 09:39 | REP ---
CHEST, PORTABLE: AP portable view of the chest is performed and compared to a prior study of 11/02/2019. Heart is enlarged. Right lung infiltrates are seen diffusely with slight increase inferiorly. Left mid and lower lung infiltrates appear improved. There is calcified tortuous aorta. Mediastinal silhouette is unchanged. Left dual lead pacemaker is again noted unchanged. Right central venous catheter is unchanged. Electronically Signed by Long Hughes MD 11/03/2019 03:54 P
[2019-11-03] MEDS ORDERED: HEPARIN 1,000 UNITS/ML 10ML VIAL (FOR RADIOLOGY& DIALYSIS ONLY)(J1644-10) XX ONE (13:00)
[2019-11-03] MEDS ORDERED: HEPARIN 1,000 UNITS/ML 10ML VIAL (FOR RADIOLOGY& DIALYSIS ONLY)(J1644-10) IV ONE (13:00)
--- NOTE | 2019-11-03 19:38 | IPN ---
DATE: 11/03/2019 Patient denies any chest pain, pressure, or tightness, lightheadedness. Shortness of breath is the same as yesterday, essentially unchanged. No fever or chills overnight. No cough. Telemetry remains regular rhythm, ventricular rate of 60-62. Patient had an esophagogram, which was negative. Patient does not have any tracheoesophageal fistula and was resumed on an oral diet yesterday. No other issues per nursing overnight. Patient remains dialysis dependent. VITAL SIGNS: Temperature 97.6, pulse 62, respiratory rate 20, blood pressure 122/50, 93% on 2 liters nasal cannula. GENERAL: Awake, alert, oriented, answering questions appropriately. No conversational dyspnea. No jugular venous distention (JVD). No thyromegaly or cervical lymphadenopathy. Dry mucous membranes. LUNGS: Diminished with bilateral lower lobe fine crackles. HEART: S1, S2, sinus rhythm. ABDOMEN: Soft, nontender, nondistended. EXTREMITIES: No cyanosis or clubbing. LABORATORY DATA: White count 14, hemoglobin 10, hematocrit 31, platelet count 316. Sodium 130, potassium 3.9, chloride 94, bicarbonate 26, BUN 45, creatinine 5.1, glucose 118. ASSESSMENT AND PLAN: This is a 78-year-old female, admitted October 13 with fall, altered mental status, found to have atrial fibrillation with rapid ventricular response (RVR) and left lower pneumonia with bilateral effusions, cardiomegaly, and large pericardial effusion status post window, complicated by cardiac arrest with successful resuscitation, complete heart block, requiring pacer placement on 10/27/2019, congestive heart failure with failed diuresis with medical therapy and required continuous renal replacement therapy (CRRT), currently now hemodialysis dependent. Patient's white count has increased. Infectious disease (ID) was consulted yesterday and is continued on current dose of Zosyn with decrease in the white count. On repeat imaging, CT abdomen and pelvis on 11/01/2019 shows no abscess seen. Consolidations found in the right middle and lingula of the lung bases, atelectasis, bilateral lower lobes, small amount of right pleural fluid. Esophagram was negative for tracheoesophageal fistula, and patient was resumed on a diet. ACTIVE ISSUES: 1. Atrial fibrillation with RVR, currently sinus rhythm, resolved on intravenous (IV) amiodarone, managed by Dr. Menjivar. 2. Congestive heart failure, managed by hemodialysis via nephrology. 3. Acute oliguric renal failure, managed by hemodialysis. 4. Pneumonia, most likely due to aspiration. Esophagogram, however, is negative. Resumed back on a renal diet and currently on IV Zosyn with decreasing white count and afebrile. 5. Hyponatremia, managed by nephrology. Most likely due to congestive heart failure and improving, yeast in the urine 10/21/2019, currently on Diflucan. 6. Chronic pain, on Lidoderm patch and Tylenol as needed. 7. Shingles. Supportive care. DISPOSITION: Once the patient is off IV amiodarone, may be transferred to medical/surgical with telemetry, physical therapy (PT), occupational therapy (OT), and acute rehabilitation unit (ARU) consulted.
[2019-11-03] MEDS ORDERED: AMIODARONE HCL 150 MG in IV 1 EA IV STA (19:47)
[2019-11-03] MEDS: **NOTE PATIENT COMMENT** MISC XX SCH (20:07)
[2019-11-03] MEDS: ACETAMINOPHEN TAB 650MG DOSE (2X325MG) PO PRN (21:13)
[2019-11-04] MEDS ORDERED: METOPROLOL 5 MG/5 ML VIAL IV PRN (00:30)
[2019-11-04] MEDS ORDERED: AMIODARONE HCL 150 MG in IV 1 EA IV SCH (00:45)
[2019-11-04] MEDS: PIPERACILLIN/TAZOBACTAM SOD 2.25 GM in D5W MINI-BAG PLUS 50 ML IV SCH ×3 (00:52→17:23)
[2019-11-04 04:00] VITALS: BP 158/73
[2019-11-04] MEDS: SODIUM CHLORIDE HYPERTONIC 3% 15ML NEB SOL INH SCH ×5 (04:17→14:55)
[2019-11-04] MEDS: IPRATROPIUM 0.5MG/ALBUTEROL 2.5MG INH SOL UD 3ML (DUONEB)(J7620) NEB PRN ×3 (04:17→12:24)
[2019-11-04] MEDS: HumaLOG INSULIN (NovoLOG) PER UNIT SC SCH ×5 (06:00→20:45)
[2019-11-04] MEDS: [UNRECOGNIZED DRUG - REMARK] XX SCH (06:00)
[2019-11-04 06:04] LABS: BASO # 0.1 10^3/uL (0.0-0.2); BASO % 0.4 % (0.0-1.0); EOS % 0.3 % (0.0-3.0); HEMATOCRIT 34.9 % (36.0-47.0); HEMOGLOBIN 11.2 g/dl (12.0-15.5); LYMPH # 2.1 10^3/uL (1.5-5.0); LYMPH % 15.8 % (24.0-44.0); MEAN CORPUSCULAR HEMOGLOBIN 26.2 pg (27.0-33.0); MEAN CORPUSCULAR HGB CONC 32.1 g/dl (32.0-36.5); MEAN CORPUSCULAR VOLUME 81.7 fl (80.0-96.0); MONO # 1.4 10^3/uL (0.0-0.8); MONO % 10.3 % (0.0-5.0); NEUTROPHILS # 9.7 10^3/uL (1.5-8.5); NEUTROPHILS % 72.7 % (36.0-66.0); PLATELET COUNT, AUTOMATED 357 10^3/uL (150-450); RED BLOOD COUNT 4.27 10^6/uL (4.00-5.40); WHITE BLOOD COUNT 13.4 10^3/uL (4.0-10.0)
[2019-11-04] MEDS: SLF 3 ML SYR IV SCH ×3 (06:28→22:00)
[2019-11-04 06:32] LABS: CALCIUM LEVEL 8.2 MG/DL (8.8-10.2); CREATININE FOR GFR 3.91 MG/DL (0.55-1.30); GLOMERULAR FILTRATION RATE 11.9 (>39); POTASSIUM SERUM 3.9 MEQ/L (3.5-5.1)
[2019-11-04 07:25] VITALS: BP 133/63
--- NOTE | 2019-11-04 08:22 | REP ---
Portable chest x-ray: Single view. History: Pleural effusion. Comparison study: November 03, 2019. Findings: The patient is status post pacemaker placement via the left side. A tunneled central venous catheter is noted in place with its tip in the expected location of the superior vena cava. Monitoring electrodes are seen along with oxygen delivery tubing. Cardiomegaly is again observed unchanged. There is some pleural thickening blunting the left lateral pleural angle. There is plate-like atelectasis in the left base. No new infiltrate. Electronically Signed by Nicolas Barboza MD 11/04/2019 08:14 A
--- NOTE | 2019-11-04 08:48 | IPN ---
DATE: 11/04/2019 Mrs. More is feeling a little bit better. Unfortunately yesterday she had another run of atrial fibrillation with rapid ventricular response. She received IV amiodarone on top of her regular daily scheduled plus IV metoprolol and eventually converted to sinus rhythm and stayed in sinus rhythm with principally atrial pacing since. Her suspicion for tracheoesophageal fistula based on CT of the chest fortunately was not confirmed so we can switch her medications back to oral administration. She denies any chest pain or shortness of breath today. Vital signs: Blood pressure 133/63, heart rate in 60s currently, but was quite tachycardiac during the atrial fibrillation. There is saturation 95% on 2 liters of oxygen and she has been afebrile. 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 Lungs seen relatively clear even though she still has some crackles throughout but much less than previously. Heart exam reveals regular rhythm without obvious gallop or rub. She has no edema. LABORATORY: WBC count is down to 13.4, hemoglobin 11.2, hematocrit 34, platelet count 357,000. Basic metabolic panel sodium 132, potassium 3.9, BUN 27, creatinine 3.9, glucose 125. ASSESSMENT AND PLAN: Mrs. More is 78-year-old female who has had a very bumpy clinical course and long hospitalization currently due to cardiac issues are atrial fibrillation and congestive heart failure with LV dysfunction. As far as the atrial fibrillation is concerned, she continues to have episodes typically during dialysis. Because we felt that she was not able to take by mouth she was getting IV amiodarone on a daily basis. Now when the fistula was rule out I am going to put her back on oral Toprol XL 100 mg as the only AV kailyn blocking drug, if it should not be is sufficient then we can give her either amiodarone or digoxin on top of it. I am going to also put her back on apixaban 2.5 twice a day. As far as the heart failure is concerned, her volume is principally controlled by dialysis. She seems to be reasonably well-controlled and improving further with time. I am a little less optimistic that there will be some recovery of renal function because she had a relatively low blood pressure overnight and not going to put her on any vasodilators at this point, but if her blood pressure should stay favorable during the day today we should probably put her on lisinopril or some ARB. It seems to me that her condition is slowly improving. I think the infectious component is getting better as well. I will be off for next [address] Sandoval will take over the service tomorrow so if there are any concerns, please contact him. NIGEL
[2019-11-04] MEDS: MOM 30ML SUSPENSION UDC PO SCH (09:00)
--- NOTE | 2019-11-04 09:21 | REP ---
Portable chest x-ray: Single view. 09:06 a.m. film History: Short of breath and cough. Comparison study: November 04, 2019. 07:07 a.m. film Findings: A pacemaker leads are again noted unchanged. A right-sided central venous catheter is again seen in place. There is no evidence of pneumothorax. There is slight pleural thickening at the left lateral base improved from the earlier film. There is plate-like atelectasis in the right perihilar region on the current radiograph mild in degree. Impression: Small new zone of plate-like atelectasis right upper perihilar region. Improved left lateral pleural angle. No evidence of pneumothorax. Electronically Signed by Nicolas Barboza MD 11/04/2019 09:13 A
[2019-11-04] MEDS: APIXABAN 2.5 MG TAB (ELIQUIS) PO SCH ×2 (09:46→20:44)
[2019-11-04] MEDS: LACTOBACILLUS ACIDOPHILUS CAP (BACID) PO SCH ×4 (09:46→20:44)
[2019-11-04] MEDS: METOPROLOL SUCC (TopROL XL) 100MG *XL* TAB PO SCH (09:46)
[2019-11-04] MEDS: NYSTATIN 100,000 UNITS/GM TOPICAL PWD 15 GM TOP SCH ×2 (09:47→21:00)
[2019-11-04] MEDS: LIDOCAINE 5% (LIDODERM) PATCH TD SCH (09:47)
[2019-11-04] MEDS ORDERED: DEXTROSE 50% 50 ML SYRINGE IV PRN (11:00)
[2019-11-04] MEDS ORDERED: GLUCOSE 4 GM CHEW TABLET PO PRN (11:00)
[2019-11-04] MEDS ORDERED: GLUCAGON FOR INJ 1 MG VIAL (J1610) SC PRN (11:00)
[2019-11-04 20:00] VITALS: BP 126/58
--- NOTE | 2019-11-04 20:15 | IPN ---
DATE: 11/04/2019 Patient has a cough that is difficult to expectorate. Bedside Acapella and incentive spirometry. She was hypothermic at 95.7 overnight. Per nursing, the patient had a run of atrial fibrillation with rapid ventricular response of 140 last night and was given two doses of intravenous amiodarone at 1947 hours and at midnight. The patient currently is sinus rhythm with a ventricular rate of 60. PHYSICAL EXAMINATION: VITAL SIGNS: Temperature 96, pulse 60, respiratory rate 18, blood pressure 133/63, 95% on 2 liters nasal cannula. GENERAL: The patient is awake, alert, oriented to person, answering questions appropriately. No use of respiratory accessory muscles. No jugular venous distention (JVD). No thyromegaly or cervical lymphadenopathy. The patient has dry mucous membranes. LUNGS: Diminished breath sounds with bilateral crackles and expiratory wheezing. HEART: S1, S2, sinus rhythm. ABDOMEN: Soft, nontender, nondistended. Positive bowel sounds. EXTREMITIES: No cyanosis or clubbing. ASSESSMENT AND PLAN: This is a 78-year-old female, admitted October 13 due to atrial fibrillation with rapid ventricular response with altered mental status, left lower pneumonia with bilateral effusions, large pericardial effusion status post window, complicated by cardiac arrest due to complete heart block with successful resuscitation and pacer placement on 10/27/2019. She has been diuresed for congestive heart failure (CHF), failed on medical therapy and required continuous renal replacement therapy (CRRT), currently now hemodialysis dependent. Due to increased white count, the patient was changed over to intravenous Zosyn with decrease in white count. On repeat imaging of CT of the abdomen and pelvis, no abscess seen but with consolidations found in the right middle and lingula, atelectasis bilateral lower lobes. There were concerns about tracheoesophageal fistula, which was negative on esophagram. She was resumed on a regular diet. ACTIVE ISSUES: 1. Atrial fibrillation with rapid ventricular response. She had another episode of 140 last evening and received two doses of intravenous amiodarone, one at 1945 and another at midnight. Managed by cardiology. The patient's blood pressure is well maintained. 2. Congestive heart failure, managed by hemodialysis via nephrology. 3. Acute oliguric renal failure, currently new to hemodialysis but appears to be dependent. 4. Pneumonia, currently on intravenous Zosyn managed by infectious disease. 5. Hypoxic respiratory failure. Currently on supplemental oxygen 2 to 3 liters. DISPOSITION: The patient is agreeable to work with physical therapy (PT).
--- NOTE | 2019-11-04 20:34 | IPN ---
DATE: 11/04/2019 SUBJECTIVE: The patient was seen and examined at the bedside today morning. She was sitting up in the sofa. She was getting ready to eat her breakfast, however she told me that she is not hungry and she was not eating much. She was dialyzed yesterday, 2 liters of fluid was removed. OBJECTIVE: Vital signs: Temperature is on 96 degrees Fahrenheit, blood pressure 133/63, pulse is 60, respiratory rate of 18, saturating 95% on nasal cannula at 2 liters. Intake and output: Ultrafiltration with hemodialysis was 2 liters. Weight in the bed scale is not available. PHYSICAL EXAMINATION: General: The patient is awake, alert, oriented times two, sitting up in the sofa, no apparent distress. Head and neck exam: Extraocular muscles intact. Pupils equally round and reactive to light. Mucous membranes are moist. Neck is supple. There is no JVD. Cardiovascular: S1, S2, irregularly irregular rate. Left-sided AICD was noted. JVD is not elevated. She has a right IJ tunneled hemodialysis catheter. Respiratory: Decreased breath sounds at the bases with coarse inspiratory crackles, right is worse than left. Abdomen: Soft, obese, positive bowel sounds. Nontender. Musculoskeletal: No clubbing or cyanosis. Pulses are 2+. 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 LABORATORY REVIEW: CBC showed WBC 13.4, hemoglobin 11.2, platelets are 357. BMP showed sodium 132, potassium 3.9, chloride 97, bicarbonate 26, BUN 27, creatinine is 3.9. IMAGING STUDIES: A chest x-ray was done today morning which showed small new zone of plate-like atelectasis in the right upper perihilar region, improved left lateral pleural angle, and no evidence of pneumothorax. CURRENT INPATIENT MEDICATIONS: The patient's medications were all reviewed by myself. The patient was given a dose of amiodarone 150 mg IV because of episode of atrial fibrillation with rapid ventricular rate. She continues to be on IV Zosyn. She has been restarted on Eliquis 2.5 mg by mouth twice a day. Fluconazole has been stopped. She has been restarted on metoprolol XL 100 mg by mouth daily. No other significant change in medications today as compared with yesterday. ASSESSMENT/PLAN: 1. Acute renal failure. The patient is still oliguric. There are no signs of renal recovery. She was dialyzed yesterday. Next hemodialysis will be tomorrow morning. 2. Pneumonia and atelectasis. The patient is currently on IV Zosyn. Volume status is optimized with dialysis. Her breathing is getting better. 3. Combined systolic and diastolic congestive heart failure. Volume status is being optimized with dialysis and atrial fibrillation is being rate controlled with amiodarone and metoprolol. 4. Atrial fibrillation. The patient had another episode of rapid ventricular rate. She was given a dose of IV amiodarone. She was seen by cardiology again. She has been restarted on Eliquis and metoprolol orally.
[2019-11-04] MEDS: ACETAMINOPHEN TAB 650MG DOSE (2X325MG) PO PRN (20:44)
[2019-11-04] MEDS: **NOTE PATIENT COMMENT** MISC XX SCH (21:00)
--- NOTE | 2019-11-04 21:15 | IPN ---
DATE: 11/03/2019 SUBJECTIVE: The patient was seen and examined at the bedside today morning during hemodialysis procedure. She was tolerating the hemodialysis procedure well. She denies any active complaints. She got the barium swallow done yesterday, which did not show any tracheoesophageal fistula. She has been started on regular diet now. OBJECTIVE: Vital signs: Temperature is 97.83 degrees Fahrenheit, blood pressure 131/63, pulse is 62, respiratory rate of 18, saturating 95% on nasal cannula at 2 liters. Intake and output: There is no urine output recorded since overnight. Weight in the bed scale is not available. PHYSICAL EXAMINATION: GENERAL: The patient is awake, alert, oriented times three, lying in bed getting hemodialysis. HEAD AND NECK: Extraocular muscles intact. Pupils itchy round and reactive to light. Neck is supple. She has a right internal jugular (IJ) dialysis catheter being used for dialysis. CARDIOVASCULAR: S1, S2, regular rate. No edema of the bilateral lower extremities. RESPIRATORY: Decreased breath sounds at the bases with mild inspiratory crackles at the bases on deep inspiration. ABDOMEN: Soft. Positive bowel sounds. Nontender. No organomegaly. MUSCULOSKELETAL: No clubbing or cyanosis. Pulses are 2+. CENTRAL NERVOUS SYSTEM: No focal deficit. Power is 5/5 in all extremities. LABORATORY REVIEW: CBC showed WBC 14.2, hemoglobin 10.2, platelets are 316. BMP showed sodium 133, potassium 3.9, chloride 94, bicarbonate 26, BUN 45, creatinine is 5.1. Microbiology: Blood cultures are negative so far. IMAGING: Barium swallow was done yesterday, which did not show any evidence of tracheoesophageal fistula. CT scan of the abdomen and pelvis was done, which showed no abscesses. There was pulmonary parenchymal consolidation in the right middle lobe and lingula. CURRENT INPATIENT MEDICATIONS: The patient's medications were all reviewed by myself. She continues to be on amiodarone 150 mg intravenous (IV) daily. She is on Zosyn 2.25 grams every 12 hours. She continues to be on fluconazole. No other change in the medications today as compared with yesterday. ASSESSMENT AND PLAN: 1. Acute oliguric renal failure. No signs of renal improvement. The patient is dialysis dependent. She is being dialyzed today. Ultrafiltration goal will be around 2 kg. 2. Aspiration pneumonitis. Barium swallow was done yesterday, which ruled out possibility of tracheoesophageal fistula. White cell count is improving with Zosyn. I have increased to Zosyn dose to IV every 8 hours to cover for pneumonia. 3. Combined systolic and diastolic congestive heart failure. Volume status is being optimized with dialysis. As mentioned above, 2 liters of fluid will be removed today. 4. Atrial fibrillation. The patient is currently on IV amiodarone. Oral medications were stopped by cardiology, and anticoagulation is on hold.
[2019-11-04 23:59] VITALS: BP 116/59
[2019-11-05] VITALS: BP 116/59
[2019-11-05] MEDS: PIPERACILLIN/TAZOBACTAM SOD 2.25 GM in D5W MINI-BAG PLUS 50 ML IV SCH ×3 (01:08→19:09)
[2019-11-05 04:00] VITALS: BP 148/69
[2019-11-05] MEDS: [UNRECOGNIZED DRUG - REMARK] XX SCH (05:28)
[2019-11-05] MEDS: SLF 3 ML SYR IV SCH ×3 (05:28→21:36)
[2019-11-05 05:52] LABS: BASO # 0.1 10^3/uL (0.0-0.2); BASO % 0.5 % (0.0-1.0); EOS # 0.2 10^3/uL (0.0-0.5); EOS % 1.2 % (0.0-3.0); HEMATOCRIT 33.2 % (36.0-47.0); HEMOGLOBIN 10.7 g/dl (12.0-15.5); LYMPH # 1.9 10^3/uL (1.5-5.0); LYMPH % 13.1 % (24.0-44.0); MEAN CORPUSCULAR HEMOGLOBIN 26.1 pg (27.0-33.0); MEAN CORPUSCULAR HGB CONC 32.2 g/dl (32.0-36.5); MONO # 1.3 10^3/uL (0.0-0.8); MONO % 9.1 % (0.0-5.0); NEUTROPHILS % 75.6 % (36.0-66.0); PLATELET COUNT, AUTOMATED 399 10^3/uL (150-450); WHITE BLOOD COUNT 14.6 10^3/uL (4.0-10.0)
[2019-11-05 08:00] VITALS: BP 124/59
[2019-11-05 08:09] LABS: C REACTIVE PROTEIN QUANTITATIV 5.66 MG/DL (0.00-0.30); CALCIUM LEVEL 7.8 MG/DL (8.8-10.2); CREATININE FOR GFR 5.42 MG/DL (0.55-1.30); GLOMERULAR FILTRATION RATE 8.2 (>39); POTASSIUM SERUM 3.9 MEQ/L (3.5-5.1)
[2019-11-05] MEDS: APIXABAN 2.5 MG TAB (ELIQUIS) PO SCH ×2 (08:41→21:37)
[2019-11-05] MEDS: LACTOBACILLUS ACIDOPHILUS CAP (BACID) PO SCH ×4 (08:41→21:37)
[2019-11-05] MEDS: LIDOCAINE 5% (LIDODERM) PATCH TD SCH (08:45)
[2019-11-05] MEDS: HumaLOG INSULIN (NovoLOG) PER UNIT SC SCH ×4 (08:45→21:00)
[2019-11-05] MEDS: METOPROLOL SUCC (TopROL XL) 100MG *XL* TAB PO SCH (08:49)
[2019-11-05] MEDS: NYSTATIN 100,000 UNITS/GM TOPICAL PWD 15 GM TOP SCH ×2 (08:49→21:37)
[2019-11-05] MEDS ORDERED: [UNRECOGNIZED DRUG - OTHER] IM ONE (09:00)
--- NOTE | 2019-11-05 09:07 | REP ---
Portable chest x-ray: Single view. History: Pleural effusion. Comparison study: November 04, 2019. Findings: A bipolar pacemaker is again seen in place. A right-sided central venous tunnel catheter is noted in place unchanged. There is no visible pneumothorax or hydrothorax. Pleuroparenchymal changes are noted at the left base. Mitral annular calcification is suspected. Pulmonary vasculature is not increased. Impression: No significant change. Electronically Signed by Nicolas Barboza MD 11/05/2019 08:59 A
[2019-11-05 10:41] LABS: HEPATITIS C VIRUS ABY INDEX 0.1 INDEX (<0.8)
[2019-11-05 12:00] VITALS: BP 109/53
[2019-11-05] MEDS ORDERED: [UNRECOGNIZED DRUG - OTHER] IM ONE (12:00)
[2019-11-05] MEDS ORDERED: HEPARIN 1,000 UNITS/ML 10ML VIAL (FOR RADIOLOGY& DIALYSIS ONLY)(J1644-10) XX ONE (13:45)
[2019-11-05] MEDS ORDERED: HEPARIN 1,000 UNITS/ML 10ML VIAL (FOR RADIOLOGY& DIALYSIS ONLY)(J1644-10) IV ONE (13:45)
[2019-11-05 13:58] LABS: HEP C VIRUS AB INDEX SOURCE PT 0.1 INDEX (0.0-0.8); HEPATITIS B SURFACE ANTIGEN NEGATIVE (NEGATIVE)
[2019-11-05 14:49] LABS: HIV SCREEN CENTAUR SOURCE NEGATIVE (NEGATIVE)
--- NOTE | 2019-11-05 15:39 | IPN ---
DATE: 11/04/2019 Mrs. More complains of perirectal pain and diarrhea. Today, she was given milk of magnesia even though the patient has been having bowel movements. She complains of pain at her decubitus site and from the perianal rash. She denies any fever or chills. No nausea, vomiting or abdominal pain. She has mild shortness of breath, minimal cough. She has had no fever or chills. Review of echocardiogram that was done October [address] Sandoval showed that she had an ejection fraction of 35%, mildly enlarged left atrium. The right atrium and right ventricle appear to be minimally enlarged. There is only trace pericardial effusion. Inferior vena cava was mildly enlarged with elevated central venous pressure. Chest x-ray done on 11/04/2019 showed a small new zone of plate-like atelectasis in the right upper perihilar region, improved left lateral pleural angle, no evidence of pneumothorax. There is a right-sided central venous catheter in place. No pneumothorax. This was a portable chest x-ray. LABORATORY DATA: White count 13.4, hemoglobin 11.2, hematocrit 34.2, platelets 357, 72% neutrophils, 15% lymphocytes, 10% monocytes. Sodium 132, potassium 3.9, chloride 97, bicarbonate 26, BUN 27, creatinine 3.91, glucose 125, calcium 8.2, CRP on 11/02/2019 was 17.6, on 10/21/2019 was 4.58. Blood culture from 10/31/2019 was negative. GI panel from 10/25/2019 was negative. C. difficile was negative on 10/30/2019. Blood cultures on 10/17/2019 were negative. AFB smear and culture from pericardial and pleural fluids are still pending. On physical examination, she is an elderly female in no acute distress, uncomfortable due to pain in the perianal area. Temperature is 97.4, pulse 61, respirations 18, blood pressure 126/58, oxygen saturation 96% on two liters nasal cannula. HEART: Normal S1, S2, tachycardiac, irregular. LUNGS: Decreased breath sounds at the bases but clear. ABDOMEN: Soft, nontender. No hepatosplenomegaly. EXTREMITIES: No clubbing, cyanosis or edema. On her right medial thighs, she has an OptiFoam dressing. Underneath it, there are some dry eschars with a small ulceration which is suggestive of shingles. Perianal area, there is excoriation, redness with a small decubitus sacral area. Chest wall has a right hemodialysis catheter with no redness. IMPRESSION: A 78-year-old female admitted with pericardial tamponade and pleural effusion status post pericardial window and thoracentesis. Etiology of her exudative pleural effusion has remained unclear. She was treated with ceftriaxone from 10/13/2019 until 10/16/2019, then switched to Zosyn until 10/22/2019. At that point, antibiotics were discontinued after she finished 10 days and all cultures remained negative. On 10/31/2019, the patient developed a worsening white count with increased cough and shortness of breath and therefore Zosyn was resumed. She is currently on day number five of IV Zosyn and doing better. PROBLEM LIST: 1. Pneumonia, aspiration versus hospital-acquired. Chest CT is suggestive of a right middle lobe and lingular pneumonia. The patient doing better with Zoysn, decreasing shortness of breath and improving white count. The patient remains on oxygen at two liters. There was some concern of a transesophageal (TE) fistula which was ruled out with a barium esophagram. 2. Congestive heart failure and atrial fibrillation, seems to be stable at this time. 3. Diarrhea was induced by laxatives. The patient received milk of magnesia today. She had a Clostridium (C) difficile and a gastrointestinal (GI) panel done the last week in October 2019, both of which were negative. Please do not send another C. difficile in the setting of laxative use. 4. Sacral decubitus ulcer with perianal excoriation due to frequent diarrhea. Apply Desitin frequently. The patient has already received fluconazole from until 11/04/2019. PLAN: Continue IV Zosyn for a total of seven days, currently day number five.
--- NOTE | 2019-11-05 18:11 | IPN ---
DATE: 11/05/2019 The patient has had no issues on telemetry overnight. She remained in sinus rhythm with ventricular rate 60-75. The patient is off IV amiodarone, currently on metoprolol 100 daily, continued on Eliquis 2.5 twice a day, and still dialysis dependent. The patient says her breathing is much better today, less cough. She still is not ambulating well. She is able to walk from the bed to the bathroom but with significant weakness. She is cooperative with physical therapy. The patient has had 13 incontinent voids yesterday, six bowel movements. White count slightly increased to 14.6 from 13.4, still on IV Zosyn. Temperature 96.2, pulse 60, respiratory rate 18, blood pressure 148/60, 98% on three liters nasal cannula. GENERAL: The patient is answering questions appropriately. No jugular venous distention (JVD). No thyromegaly. Lungs are diminished but clear to auscultation. HEART: S1, S2, sinus rhythm. Abdomen is obese, soft, nontender, nondistended. Positive bowel sounds. EXTREMITIES: No clubbing or cyanosis. LABORATORY DATA: White count 14, hemoglobin 10, hematocrit 33, platelet count 399. Metabolic panel is still pending. ASSESSMENT AND PLAN: This is a 78-year-old female admitted for altered mental status, pneumonia and bilateral effusions, atrial fibrillation with rapid ventricular response (RVR), large pericardial effusion, brought to the operating room (OR) for a window, also suffered cardiac arrest due to complete heart block with successful resuscitation and pacer placement 10/27/2019, despite medical therapy for heart failure exacerbation, the patient has continued to have acute oliguric renal failure and required dialysis initially with continuous renal replacement therapy (CRRT) but now on hemodialysis and appears to be dependent on this. The patient has been on IV Zosyn due to increasing white count, managed by infectious disease. IMPRESSION: 1. Atrial fibrillation with rapid ventricular response (RVR), resolved, currently in sinus rhythm. She had received multiple doses of amiodarone, managed by Dr. Menjivar of cardiology. Currently on metoprolol 100 daily. 2. Congestive heart failure (CHF), euvolemic, managed by dialysis via nephrology. 3. Acute oliguric renal failure, new to hemodialysis, will be dependent on this. 4. Pericardial effusion, resolved, status post window by thoracic surgery. She appears to be stable. 5. Hypoxic respiratory failure, on chronic 2-3 liters of oxygen. MTDD
[2019-11-05 18:57] VITALS: BP 93/62
[2019-11-05 20:00] VITALS: BP 105/52
[2019-11-05] MEDS: **NOTE PATIENT COMMENT** MISC XX SCH (21:36)
[2019-11-06] VITALS (7 sets, daily range): BP systolic 103–142; BP diastolic 53–63
[2019-11-06] MEDS: PIPERACILLIN/TAZOBACTAM SOD 2.25 GM in D5W MINI-BAG PLUS 50 ML IV SCH ×3 (00:02→17:27)
[2019-11-06] MEDS: ONDANSETRON 4MG/2ML VIAL (J2405) IV PRN ×2 (00:14→13:45)
[2019-11-06] MEDS: [UNRECOGNIZED DRUG - REMARK] XX SCH (05:34)
[2019-11-06] MEDS: SLF 3 ML SYR IV SCH ×3 (05:34→20:43)
[2019-11-06 06:16] LABS: BASO # 0.1 10^3/uL (0.0-0.2); BASO % 0.4 % (0.0-1.0); EOS # 0.2 10^3/uL (0.0-0.5); EOS % 1.2 % (0.0-3.0); HEMATOCRIT 36.3 % (36.0-47.0); HEMOGLOBIN 11.5 g/dl (12.0-15.5); LYMPH # 1.8 10^3/uL (1.5-5.0); LYMPH % 9.9 % (24.0-44.0); MEAN CORPUSCULAR HEMOGLOBIN 26.1 pg (27.0-33.0); MEAN CORPUSCULAR HGB CONC 31.7 g/dl (32.0-36.5); MEAN CORPUSCULAR VOLUME 82.5 fl (80.0-96.0); MONO # 1.5 10^3/uL (0.0-0.8); MONO % 8.1 % (0.0-5.0); NEUTROPHILS # 14.3 10^3/uL (1.5-8.5); NEUTROPHILS % 79.8 % (36.0-66.0); PLATELET COUNT, AUTOMATED 455 10^3/uL (150-450)
[2019-11-06 06:33] LABS: CALCIUM LEVEL 8.3 MG/DL (8.8-10.2); CREATININE FOR GFR 3.44 MG/DL (0.55-1.30); GLOMERULAR FILTRATION RATE 13.8 (>39); POTASSIUM SERUM 3.9 MEQ/L (3.5-5.1)
--- NOTE | 2019-11-06 08:03 | IPN ---
DATE: 11/05/2019 SUBJECTIVE: The patient was seen and examined at the bedside today morning. The patient is awake and alert, afebrile, hemodynamically stable today. She is scheduled to have another dialysis done. The patient continues to be oliguric and there is no significant improvement in the renal function. OBJECTIVE: Vital signs: Temperature is 96.6 degrees Fahrenheit, blood pressure 124/59, pulse is 60, respiratory rate of 20, saturating 94% on room air. Intake and output: There is no urine output recorded. She has incontinent voids. Weight in the bed scale is not available. PHYSICAL EXAMINATION: General: The patient is awake, alert, oriented times three, laying in bed, in no apparent distress. Head and neck exam: Extraocular muscles intact. Pupils equally round and reactive to light. Mucous membranes are moist. Neck is supple. Right IJ tunneled hemodialysis catheter. Cardiovascular: S1, S2, regular rate. No edema of the bilateral lower extremities. Respiratory: Decreased breath sounds at the bases with coarse inspiratory crackles on deep inspiration. Abdomen: Soft, positive bowel sounds. Nontender. No organomegaly. Musculoskeletal: No clubbing or cyanosis. Pulses are 2+. ULTRASONIC SOLDERER: No focal deficit, power is 5/5 in bilateral upper extremities. LABORATORY REVIEW: CBC showed WBC 14.6, hemoglobin is 10.7, platelets are 399. BMP showed sodium 132, potassium 3.9, chloride 97, bicarbonate 29, BUN 44, creatinine is 5.4, calcium 7.8, C-reactive protein 5.6. IMAGING STUDIES: A chest x-ray was done today morning which showed no significant changes. CURRENT INPATIENT MEDICATIONS: The patient's medications were all reviewed by me. She continues to be on IV Zosyn, last dose will be on 11/11/2019. I have started the patient on hepatitis B vaccine series. No other change in the medications today as compared with yesterday. ASSESSMENT/PLAN: 1. Acute renal failure. The patient remains oliguric. No signs of renal recovery. Continue dialysis. She will be dialyzed today in the afternoon. Ultrafiltration goal will be around 2 kg. 2. Aspiration pneumonitis. The patient is currently on Zosyn 2.25 grams IV every 8 hours. Her symptoms are getting better, last dose will be on 11/11/2019. 3. Combined systolic and diastolic congestive heart failure. Volume status is getting better. Two liters of fluid will be removed with dialysis today. 4. Active fibrillation. The patient is back on Eliquis 2.5 mg by mouth twice a day, metoprolol 100 mg by mouth daily. Rest of the management is as per cardiology recommendations.
[2019-11-06] MEDS: LIDOCAINE 5% (LIDODERM) PATCH TD SCH (08:35)
[2019-11-06] MEDS: APIXABAN 2.5 MG TAB (ELIQUIS) PO SCH (08:36)
[2019-11-06] MEDS: LACTOBACILLUS ACIDOPHILUS CAP (BACID) PO SCH ×4 (08:36→20:42)
[2019-11-06] MEDS: HumaLOG INSULIN (NovoLOG) PER UNIT SC SCH ×4 (08:36→20:42)
[2019-11-06] MEDS: NYSTATIN 100,000 UNITS/GM TOPICAL PWD 15 GM TOP SCH ×2 (08:36→20:43)
[2019-11-06] MEDS: METOPROLOL SUCC (TopROL XL) 100MG *XL* TAB PO SCH (08:36)
--- NOTE | 2019-11-06 09:08 | IPN ---
DATE: 11/05/2019 Patient complains of sacral pain Yesterday, she had over 15 bowel movements after she was given laxatives She remains afebrile. She has mild cough and shortness of breath. Temperature is 96.5, pulse 60, respirations 18, blood pressure 109/952, oxygen saturation 93 on room air. Heart: Normal S1 and S2. Regular rate and rhythm. Lungs: Decreased breath sounds at the bases with a few inspiratory crackles. Abdomen: Soft, nontender. No visceromegaly. Extremities: No clubbing, cyanosis. She has no pitting edema. Mid thigh has fascicular lesions, which are healing well. Looks like they were all old shingles. Perianal area has severe excoriation and erythema. LABORATORY DATA: White count 14.6, hemoglobin 10.7, hematocrit 33.2, platelet 399, 75% neutrophils, was 13% lymphocystes, 9% monocytes. Sodium 132, potassium 3.9, chloride 97, bicarbonate 29, BUN 44, creatinine 5.4, glucose 112, calcium 7.8, CRP 5.66. Procalcitonin on 11/02/2019 was 0.9 down to 0.6 MEDICATIONS: - IV Zosyn currently day #6 at a dose of 2.25 grams every 12 hours IMPRESSION: 1. Hospital/aspiration pneumonia. Doing better with IV Zosyn. White count has decreased from 28,000 to 14,000. Cough and shortness of breath have improved. The patient is off oxygen. 2. Acute kidney injury on hemodialysis. Do a PermaCath in the right chest. 3. Congestive heart failure. Seems to be stable at this time. PLAN: Continue with IV Zosyn for a total of 7-10 days, check her procalcitonin less 0.25 earlier , Zosyn could be discontinued, and patient clinically stable with a decreasing white count. MTDD
--- NOTE | 2019-11-06 14:55 | IPN ---
DATE OF SERVICE: 11/06/2019 The patient has no new complaints. Coughing at the bedside, wanting to be repositioned. No fever or chills overnight. The patient is afebrile. Slightly increasing white count. No nausea or vomiting. Tolerating a diet well. Temperature 98.5, pulse 60, respiratory rate 20, blood pressure 142/63, 100% on 2 liters nasal cannula. Awake, alert, oriented. Answering questions appropriately. Lungs have diminished breath sounds at the bases. Heart: S1, S2, sinus rhythm. Abdomen is soft, nontender, nondistended. Extremities: No clubbing or cyanosis. LABORATORY DATA AND MICROBIOLOGY: Have been reviewed. ASSESSMENT AND PLAN: This is a 78-year-old female admitted for altered mental status, pneumonia, bilateral effusions, atrial fibrillation (AFib), pericardial effusion, complicated by complete heart block and cardiac arrest with pacer placement and pericardial window. The patient had persistent hypoxia requiring heart failure management, failed on medical therapy, and currently new to hemodialysis. The patient was evaluated for tracheoesophageal fistula which was negative on esophagram. She is being treated for aspiration pneumonitis. IMPRESSION: 1. Aspiration pneumonitis. Still on intravenous (IV) Zosyn. Afebrile with slightly increasing white count. Dr. San is managing her current issues. 2. Diarrhea. Most likely due to laxatives. Negative Clostridium (C) difficile in early October. 3. Sacral decubitus with excoriations. On Desitin. 4. Congestive heart failure, managed by nephrology. Currently euvolemic. 5. Atrial fibrillation (AFib). Currently sinus rhythm. On metoprolol 100 daily. DISPOSITION: Awaiting improvement. Has pneumonia, aspiration versus hospital acquired. Defer to Dr. San regarding antibiotic duration. Acute rehabilitation unit (ARU) evaluation.
[2019-11-06] MEDS: APIXABAN 5 MG TAB (ELIQUIS) PO SCH (20:42)
[2019-11-06] MEDS: **NOTE PATIENT COMMENT** MISC XX SCH (20:44)
[2019-11-07] MEDS: PIPERACILLIN/TAZOBACTAM SOD 2.25 GM in D5W MINI-BAG PLUS 50 ML IV SCH ×3 (01:54→17:09)
[2019-11-07 06:00] VITALS: BP 117/51
[2019-11-07] MEDS: SLF 3 ML SYR IV SCH ×3 (06:00→21:07)
[2019-11-07] MEDS: [UNRECOGNIZED DRUG - REMARK] XX SCH (06:00)
[2019-11-07 06:32] LABS: BASO # 0.1 10^3/uL (0.0-0.2); BASO % 0.5 % (0.0-1.0); EOS # 0.5 10^3/uL (0.0-0.5); EOS % 3.3 % (0.0-3.0); HEMATOCRIT 34.3 % (36.0-47.0); HEMOGLOBIN 10.8 g/dl (12.0-15.5); LYMPH # 1.8 10^3/uL (1.5-5.0); MEAN CORPUSCULAR HEMOGLOBIN 26.2 pg (27.0-33.0); MEAN CORPUSCULAR HGB CONC 31.5 g/dl (32.0-36.5); MEAN CORPUSCULAR VOLUME 83.3 fl (80.0-96.0); MONO # 1.2 10^3/uL (0.0-0.8); MONO % 7.5 % (0.0-5.0); NEUTROPHILS # 12.4 10^3/uL (1.5-8.5); PLATELET COUNT, AUTOMATED 445 10^3/uL (150-450); RED BLOOD COUNT 4.12 10^6/uL (4.00-5.40); WHITE BLOOD COUNT 16.1 10^3/uL (4.0-10.0)
[2019-11-07 07:05] LABS: CALCIUM LEVEL 8.4 MG/DL (8.8-10.2); CREATININE FOR GFR 5.38 MG/DL (0.55-1.30); GLOMERULAR FILTRATION RATE 8.2 (>39); POTASSIUM SERUM 3.6 MEQ/L (3.5-5.1)
[2019-11-07] MEDS: APIXABAN 5 MG TAB (ELIQUIS) PO SCH ×2 (08:55→21:05)
[2019-11-07] MEDS: LACTOBACILLUS ACIDOPHILUS CAP (BACID) PO SCH ×4 (08:55→21:04)
[2019-11-07] MEDS: METOPROLOL SUCC (TopROL XL) 100MG *XL* TAB PO SCH (08:55)
[2019-11-07] MEDS: HumaLOG INSULIN (NovoLOG) PER UNIT SC SCH ×4 (08:56→20:54)
[2019-11-07] MEDS: NYSTATIN 100,000 UNITS/GM TOPICAL PWD 15 GM TOP SCH ×2 (08:57→21:05)
[2019-11-07] MEDS: LIDOCAINE 5% (LIDODERM) PATCH TD SCH (08:57)
--- NOTE | 2019-11-07 10:42 | IPN ---
DATE: 11/06/2019 SUBJECTIVE: The patient was seen and examined at the bedside today morning. She is afebrile, hemodynamically stable. She was dialyzed yesterday. She was restless during dialysis and she had generalized body aches and pains. However, she got the 2 liters of ultrafiltration done. Weight in the bed scale is not available. PHYSICAL EXAMINATION: General: The patient is awake, alert, oriented x3, laying in bed in no apparent distress. Head and neck exam: Extraocular muscles intact. Pupils equally round and reactive to light. Mucous membranes are moist. Neck is supple. There is no JVD. She has a right IJ tunneled hemodialysis catheter. Cardiovascular: S1, S2, regular rate. Crepitations bilaterally in the lower extremities on deep inspiration. Abdomen: Soft, positive bowel sounds. Nontender. No organomegaly. Musculoskeletal: No clubbing or cyanosis. Pulses are 2+. DOORKEEPER: No focal deficit. Power is 5/5 in all extremities. LABORATORY REVIEW: Complete blood count (CBC) showed white blood count (WBC) of 18, hemoglobin is 11.5, platelets are 455. Basic metabolic panel (BMP) showed sodium 132, potassium 3.9, chloride 97, bicarbonate 29, BUN 24, creatinine is 3.4, calcium is 8.3. CURRENT INPATIENT MEDICATIONS: The patient's medications were all reviewed by me. He continues to be on IV Zosyn, Eliquis dose has been increased to 5 mg by mouth twice a day. No other significant change in medications today as compared with yesterday. ASSESSMENT/PLAN: 1. Acute renal failure. There are no signs of renal recovery. The patient is dialysis dependent last dialysis was done yesterday. Next hemodialysis will be done on Friday. 2. Aspiration pneumonitis. The patient is currently on IV Zosyn. White cell count is stable. Infectious disease following the patient. 3. Combined systolic and diastolic congestive heart failure. Volume status is optimized 2 liters of fluid was removed with dialysis yesterday. 4. Atrial fibrillation. The patient is currently on metoprolol and Eliquis.
[2019-11-07 14:00] VITALS: BP 117/53
--- NOTE | 2019-11-07 16:20 | IPN ---
DATE: 11/07/2019 Mrs. Cheryl More was seen earlier today. She was supine in bed in no acute distress at rest. She denies any chest pain but stated that everything is hurting. There is no report of palpitations, dizziness, bleeding. There is no focal manifestation. She was moving her upper extremity when I was at bedside. PHYSICAL EXAMINATION: The patient is alert and oriented, in no acute distress at rest . Her blood pressure earlier today when I saw her was 113/52 with a pulse of 61, respirations 15, and her maximum temperature is 97.7 degrees Fahrenheit with an oxygen saturation of 91-97% on room air. Examination of the head: Atraumatic. Neck examination revealed no carotid bruits. The lungs are clear bilaterally on auscultation. The heart examination revealed irregular heart sounds without gallops. The point of maximal impulse (PMI) is slight slightly displaced inferiorly and laterally. There is no rub. I could not appreciate any murmurs. Abdomen is unremarkable. Extremities revealed no pedal edema. Neurological examination revealed no focal deficit. LABORATORY DATA: CBC done today revealed a WBC of 16,000, hemoglobin 10.8, hematocrit 34.3, and platelet 445,000. BMP revealed a sodium of 131, potassium 3.6, chloride 96, CO2 of 27, BUN 40, creatinine 5.38, and fasting glucose 136 with a calcium of 8.4. Mrs. More is stable from a cardiac point of view, currently on metoprolol succinate and apixaban for paroxysmal atrial fibrillation. She also has underlying cardiomyopathy with a depressed left ventricular systolic function. She had developed deterioration of her kidney function, and it seems that this has not been improving. She is on dialysis on Mondays, Wednesdays, and Fridays, being monitored by nephrology. 2. Status post recent pneumonia, currently still on intravenous (IV) antibiotics. At that time, she also presented with a large pericardial effusion and had pericardial window done. 3. Status post recent permanent pacemaker implantation for sinus pulses, recurrent.
--- NOTE | 2019-11-07 19:41 | IPN ---
DATE: 11/07/2019 Patient had no fever or chills overnight. Eating her breakfast without any difficulty. Still dialysis dependent. No complaints of chest pain, pressure, or tightness, lightheadedness, dizziness, cough productive of sputum. Vital signs: Temperature 97.7, pulse 61, respiratory rate 15, blood pressure 117/51, 90% on room air. Generally: Patient is awake, alert, oriented to person and place. Answering questions appropriately. No jugular venous distention (JVD), no thyromegaly. Lungs: Diminished with crackles bilaterally. Heart: S1, S2, sinus rhythm. Abdomen is soft, nontender, nondistended. Positive bowel sounds. Extremities: No cyanosis or clubbing. Laboratory data, imaging studies, and microbiology have been reviewed. ASSESSMENT AND PLAN: This is a 78-year-old. IMPRESSION: 1. Aspiration pneumonia. No tracheal esophageal fistula on the esophagram. Patient is resumed on a regular diet. She is currently on IV Zosyn managed by infectious disease. Patient has no symptoms. 2. Atrial fibrillation with rapid ventricular response (RVR), resolved. On anticoagulation and currently regular rhythm, rate controlled. 3. Congestive heart failure with systolic and diastolic dysfunction. Appears to be compensated. Managed by nephrology via dialysis. DISPOSITION: Await completion of antibiotics, acute rehabilitation.
--- NOTE | 2019-11-07 20:26 | IPN ---
DATE: 11/07/2019 Mrs. More is seen this morning on her bedside. She is resting comfortably in her bed and denies any pain at present. She has been on room air and saturating about 90-97%. She was dialyzed on 11/05/2019 and next dialysis is due for tomorrow. The patient denies any nausea or vomiting. PHYSICAL EXAMINATION: Temperature 97.7 degrees Fahrenheit, heart rate 60 per minute and respiratory rate 15 per minute. Blood pressure 117/50 mmHg and oxygen saturation between 90 and 97% on room air. Head is atraumatic. Neck is supple and JVD not abnormally elevated. Dialysis catheter is present on right shoulder area. Heart Sounds are regular and lungs with diminished breath sounds at bases bilaterally. Abdomen soft and nontender and bowel sounds are normal. Extremities without any cyanosis or clubbing. She has no peripheral edema. Neurologically she is awake and answers questions appropriately. Today's labs show sodium 131, potassium 3.6, CO2 27, BUN 40 and creatinine 5.38. Calcium level 8.4. WBC count is 16.1, hemoglobin 10.8 and hematocrit 34.3. PROBLEMS: 1. Acute renal failure superimposed on chronic kidney disease. The patient remains oliguric and dialysis dependent. She is due for dialysis tomorrow and we will plan to dialyze her here. 2. Hyponatremia. This is again related to renal failure and essentially unchanged for last few days. It is likely to correct with dialysis. The patient will continue with fluid restriction of 1500 mL/day. 3. Pneumonia. The patient is felt to have aspiration pneumonia and has been treated with antibiotics. Her oxygen saturation has improved and she remains on Zosyn. 4. Anemia. At present her anemia is stable and no intervention indicated. She will be managed with dialysis. DISPOSITION: The patient has been waiting for subacute rehabilitation and is likely to be discharged next week. She will continue with outpatient dialysis.
[2019-11-07] MEDS: **NOTE PATIENT COMMENT** MISC XX SCH (21:00)
--- NOTE | 2019-11-07 21:34 | IPN ---
DATE: 11/06/2019 Mrs. Cheryl More was seen last evening and this morning, she was laying supine in bed in no acute distress at rest. She said that she feels much better this morning. She was diagnosed with aspiration pneumonia, pericardial effusion that was significant and for which she had pericardial window. She also developed, while in the hospital, paroxysmal atrial fibrillation and sinus pause that required a permanent pacemaker implantation. In the process, she had developed renal failure and is currently on hemodialysis. This morning when I saw her, she denied any complaint of chest pain or shortness of breath and there is no orthopnea or paroxysmal nocturnal dyspnea (PND). There are no chest pains or palpitations. She usually has paroxysmal atrial fibrillation with her hemodialysis treatment. There is no report of bleeding. As mentioned above, she said that she feels much better today. PHYSICAL EXAMINATION: Patient is alert and oriented, in no acute distress at rest. VITAL SIGNS: This morning reveal a blood pressure of 142/63, with a pulse of 60, respirations 20 and a maximum temperature of 98.5 degrees Fahrenheit with an oxygen saturation of 100% on 2 liters nasal cannula. EXAMINATION OF THE HEAD: Atraumatic. NECK: Supple and no jugular venous distention (JVD) appreciated. LUNGS: Did not reveal any wheezing or crackles. HEART EXAMINATION: Revealed regular heart sounds without gallops. The point of maximum impulse (PMI) is displaced inferiorly and laterally. There is no rub. ABDOMEN: Unremarkable. EXTREMITIES: Reveal no pedal edema. NEUROLOGICAL EXAMINATION: Limited, but no focal deficit noted in the upper extremities. LABORATORY DATA: Complete blood count (CBC) done today revealed a WBC of 18,000, hemoglobin 11.5, hematocrit 36.3, and platelets 455,000. Basic metabolic panel (BMP) revealed a sodium of 132, potassium 3.9, chloride 97, CO2 29, BUN 24, creatinine 3.44, GFR 13.8, and fasting glucose 173, with a calcium of 8.3. Telemetry was reviewed and revealed ventricular pacemaker activity. Mrs. Cheryl More seems to be stable from a cardiac point of view, currently in sinus rhythm with pacing activities. She is on metoprolol as AV blocking agents. She does also have underlying cardiomyopathy with a depressed left ventricular ejection fraction (LVEF). She is on apixaban at 2.5 mg by mouth twice a day and this was discussed with the pharmacist. She might require a higher dose for her thromboembolic events is no contraindications. She appears to be doing better, but today's CBC revealed a jump in her WBC. She continues to be on hemodialysis and hopefully, her kidney function has improved, but I doubt it, in view of her underlying history of diabetes mellitus. Her cardiac condition, however, seems to be stable. It was a pleasure to participate in the care of Mrs. Cheryl More for her underlying cardiac condition. I will continue to monitor along with you. Please do not hesitate to call if any questions.
[2019-11-07 22:00] VITALS: BP 118/54
[2019-11-08] MEDS: PIPERACILLIN/TAZOBACTAM SOD 2.25 GM in D5W MINI-BAG PLUS 50 ML IV SCH ×3 (01:09→17:07)
[2019-11-08] MEDS: IPRATROPIUM 0.5MG/ALBUTEROL 2.5MG INH SOL UD 3ML (DUONEB)(J7620) NEB PRN (03:30)
[2019-11-08 06:00] VITALS: BP 119/53
[2019-11-08] MEDS: [UNRECOGNIZED DRUG - REMARK] XX SCH (06:00)
[2019-11-08 06:13] LABS: BASO # 0.1 10^3/uL (0.0-0.2); BASO % 0.6 % (0.0-1.0); EOS # 0.4 10^3/uL (0.0-0.5); EOS % 2.9 % (0.0-3.0); HEMATOCRIT 32.2 % (36.0-47.0); HEMOGLOBIN 10.2 g/dl (12.0-15.5); LYMPH # 1.7 10^3/uL (1.5-5.0); LYMPH % 11.9 % (24.0-44.0); MEAN CORPUSCULAR HEMOGLOBIN 25.8 pg (27.0-33.0); MEAN CORPUSCULAR HGB CONC 31.7 g/dl (32.0-36.5); MEAN CORPUSCULAR VOLUME 81.5 fl (80.0-96.0); MONO # 1.1 10^3/uL (0.0-0.8); MONO % 7.3 % (0.0-5.0); NEUTROPHILS # 11.2 10^3/uL (1.5-8.5); NEUTROPHILS % 76.4 % (36.0-66.0); PLATELET COUNT, AUTOMATED 498 10^3/uL (150-450); RED BLOOD COUNT 3.95 10^6/uL (4.00-5.40); WHITE BLOOD COUNT 14.7 10^3/uL (4.0-10.0)
[2019-11-08] MEDS: LIDOCAINE 5% (LIDODERM) PATCH TD SCH (06:23)
[2019-11-08] MEDS: APIXABAN 5 MG TAB (ELIQUIS) PO SCH ×2 (06:28→20:36)
[2019-11-08] MEDS: LACTOBACILLUS ACIDOPHILUS CAP (BACID) PO SCH ×4 (06:28→20:35)
[2019-11-08 06:29] VITALS: BP 119/63
[2019-11-08] MEDS: SLF 3 ML SYR IV SCH ×3 (06:29→21:56)
[2019-11-08] MEDS: NYSTATIN 100,000 UNITS/GM TOPICAL PWD 15 GM TOP SCH ×2 (06:29→20:05)
[2019-11-08] MEDS: METOPROLOL SUCC (TopROL XL) 100MG *XL* TAB PO SCH (06:29)
[2019-11-08 06:31] LABS: CALCIUM LEVEL 8.6 MG/DL (8.8-10.2); CREATININE FOR GFR 7.03 MG/DL (0.55-1.30); POTASSIUM SERUM 4.1 MEQ/L (3.5-5.1)
[2019-11-08] MEDS: HumaLOG INSULIN (NovoLOG) PER UNIT SC SCH ×4 (07:30→20:32)
[2019-11-08] MEDS ORDERED: HEPARIN 1,000 UNITS/ML 10ML VIAL (FOR RADIOLOGY& DIALYSIS ONLY)(J1644-10) IV ONE (09:45)
[2019-11-08] MEDS ORDERED: HEPARIN 1,000 UNITS/ML 10ML VIAL (FOR RADIOLOGY& DIALYSIS ONLY)(J1644-10) XX ONE (09:45)
[2019-11-08] MEDS: ACETAMINOPHEN TAB 650MG DOSE (2X325MG) PO PRN (12:20)
--- NOTE | 2019-11-08 14:43 | IPNPDOC ---
Date Seen The patient was seen on 11/08/19. Progress Note SUBJECTIVE: Eating her breakfast in bed at 45degrees elevation. no choking or coughing fits. sob at baseline. denies chest pain, palpitations. c/o generalized weakness. no fever or chills. no n/v/d. OBJECTIVE: PHYSICAL EXAMINATION: VITALS:PLS SEE BELOW GENERAL: Awake, alert, oriented, answering questions appropriately. No conversational dyspnea. No jugular venous distention (JVD). No thyromegaly or cervical lymphadenopathy. Dry mucous membranes. LUNGS: Rt anterior chest dialysis catheter, clean dry no erythema or tenderness Diminished with bilateral lower lobe fine crackles. HEART: S1, S2, sinus rhythm. ABDOMEN: Soft, nontender, nondistended. EXTREMITIES: No cyanosis or clubbing. LABORATORY DATA: PLS SEE BELOW ASSESSMENT AND PLAN: This is a 78-year-old female, admitted October 13 with fall, altered mental status, found to have atrial fibrillation with rapid ventricular response (RVR) and left lower pneumonia with bilateral effusions, cardiomegaly, and large pericardial effusion status post window, complicated by cardiac arrest with successful resuscitation, complete heart block, requiring pacer placement on 10/27/2019, congestive heart failure with failed diuresis with medical therapy and required continuous renal replacement therapy (CRRT), currently now hemodialysis dependent. Patient's white count has increased. Infectious disease (ID) was consulted yesterday and is continued on current dose of Zosyn with decrease in the white count. On repeat imaging, CT abdomen and pelvis on 11/01/2019 shows no abscess seen. Consolidations found in the right middle and lingula of the lung bases, atelectasis, bilateral lower lobes, small amount of right pleural fluid. Esophagram was negative for tracheoesophageal fistula, and patient was resumed on a diet. 1. Atrial fibrillation with RVR, RESOLVED. currently sinus rhythm s/p iv amiodarone. stable for the past 4days on metoprolol managed by cardio. 2. Congestive heart failure, euvolemic. strict i/o, dialy weights, and fluid restriction. managed by hemodialysis via nephrology. 3. Acute oliguric renal failure, managed by hemodialysis. per PFS, no outpt dialysis arranged yet. 4. Pneumonia, most likely due to aspiration. Esophagogram, however, is negative. Resumed back on a renal diet and currently on IV Zosyn with decreasing white count and afebrile. ID consulted for help in management . 5. Hyponatremia, managed by nephrology. Most likely due to congestive heart failure . 6. Chronic pain, on Lidoderm patch and Tylenol as needed. 7. Shingles. Supportive care. disposion: subacute rehab placement once off abx and outpt dialysis has been arranged. VS, I&O, 24H, Fishbone Vital Signs/I&O Vital Signs Date Time Temp Pulse Resp B/P (MAP) Pulse Ox O2 Delivery O2 Flow Rate FiO2 11/08/19 06:29 61 119/63 11/08/19 06:00 98.1 16 90 Room Air 11/06/19 12:00 2.0 I&O- Last 24 Hours up to 6 AM 11/08/19 06:00 Intake Total 360 ml Balance 360 ml Laboratory Data 24H LABS Laboratory Tests 2 11/08/19 05:47: Immature Granulocyte % (Auto) 0.9, Neutrophils (%) (Auto) 76.4H, Lymphocytes (%) (Auto) 11.9L, Monocytes (%) (Auto) 7.3H, Eosinophils (%) (Auto) 2.9, Basophils (%) (Auto) 0.6, Neutrophils # (Auto) 11.2H, Lymphocytes # (Auto) 1.7, Monocytes # (Auto) 1.1H, Eosinophils # (Auto) 0.4, Basophils # (Auto) 0.1, Nucleated Red Blood Cells % (auto) 0.0, Anion Gap 10, Glomerular Filtration Rate 6.0L, Calcium Level 8.6L 11/08/19 11:33: Bedside Glucose (Misc Panel) 228H CBC/BMP Laboratory Tests 11/08/19 05:47 Microbiology Microbiology 10/31/19 Blood Culture - Final, Complete NO GROWTH AFTER 5 DAYS LUISA PARISI MD Nov 08, 2019 14:40
[2019-11-08] MEDS: ONDANSETRON 4MG/2ML VIAL (J2405) IV PRN (15:17)
[2019-11-08 17:30] VITALS: BP 108/54
[2019-11-08] MEDS: **NOTE PATIENT COMMENT** MISC XX SCH (20:11)
[2019-11-08 22:00] VITALS: BP 102/52
[2019-11-09] MEDS: PIPERACILLIN/TAZOBACTAM SOD 2.25 GM in D5W MINI-BAG PLUS 50 ML IV SCH ×2 (01:23→09:54)
[2019-11-09] MEDS: [UNRECOGNIZED DRUG - REMARK] XX SCH (05:19)
[2019-11-09] MEDS: SLF 3 ML SYR IV SCH ×2 (05:19→12:03)
[2019-11-09 06:00] VITALS: BP 102/51
[2019-11-09 06:02] LABS: BASO # 0.1 10^3/uL (0.0-0.2); EOS # 0.4 10^3/uL (0.0-0.5); EOS % 3.1 % (0.0-3.0); HEMATOCRIT 34.9 % (36.0-47.0); LYMPH # 1.6 10^3/uL (1.5-5.0); LYMPH % 13.9 % (24.0-44.0); MEAN CORPUSCULAR HEMOGLOBIN 26.1 pg (27.0-33.0); MEAN CORPUSCULAR HGB CONC 31.5 g/dl (32.0-36.5); MEAN CORPUSCULAR VOLUME 82.7 fl (80.0-96.0); MONO # 1.1 10^3/uL (0.0-0.8); MONO % 9.4 % (0.0-5.0); NEUTROPHILS # 8.1 10^3/uL (1.5-8.5); NEUTROPHILS % 72.1 % (36.0-66.0); PLATELET COUNT, AUTOMATED 524 10^3/uL (150-450); RED BLOOD COUNT 4.22 10^6/uL (4.00-5.40); WHITE BLOOD COUNT 11.2 10^3/uL (4.0-10.0)
[2019-11-09 06:29] LABS: CALCIUM LEVEL 8.6 MG/DL (8.8-10.2); GLOMERULAR FILTRATION RATE 11.6 (>39); POTASSIUM SERUM 3.8 MEQ/L (3.5-5.1)
[2019-11-09] MEDS: HumaLOG INSULIN (NovoLOG) PER UNIT SC SCH ×2 (07:30→12:03)
[2019-11-09] MEDS: LIDOCAINE 5% (LIDODERM) PATCH TD SCH (09:00)
[2019-11-09] MEDS: METOPROLOL SUCC (TopROL XL) 100MG *XL* TAB PO SCH (09:00)
[2019-11-09] MEDS: LACTOBACILLUS ACIDOPHILUS CAP (BACID) PO SCH ×2 (09:54→12:03)
[2019-11-09] MEDS: APIXABAN 5 MG TAB (ELIQUIS) PO SCH (09:55)
[2019-11-09] MEDS: NYSTATIN 100,000 UNITS/GM TOPICAL PWD 15 GM TOP SCH (09:55)
[2019-11-09] MEDS: ACETAMINOPHEN TAB 650MG DOSE (2X325MG) PO PRN (10:48)
[2019-11-09] MEDS: ONDANSETRON 4MG/2ML VIAL (J2405) IV PRN (10:48)
--- NOTE | 2019-11-09 10:48 | IPN ---
DATE OF VISIT: 11/08/2019 Mrs. More is seen this morning on her bedside. She is sitting in the bed trying to eat her breakfast. She is still very weak and not feeling well. She has no fever or chills. She continues to have cough without any hemoptysis and denies any pleuritic type of chest pain. PHYSICAL EXAMINATION: Temperature 98 degrees Fahrenheit, heart rate is 68 per minute and respiratory rate 16 per minute. Blood pressure 119/53 mmHg and oxygen saturation 90% on room air. Head is atraumatic. Neck supple and jugular venous distention (JVD) difficult to be assessed. She has a dialysis catheter in right internal jugular vein. Heart sounds are irregular in rhythm and lungs with diminished breath sounds at bases and bilateral coarse crackles. Abdomen soft and nontender and bowel sounds are normal. Extremities without any cyanosis or clubbing. Today's labs show WBC count down to 14.7, hemoglobin 10.2 and hematocrit 32.2. Platelets 498. Sodium 129, potassium 4.1, CO2 25, BUN 55 and creatinine 7.03. PROBLEMS: 1. End-stage renal disease. The patient had acute renal failure superimposed on chronic kidney disease and no recovery of kidney function so far. She remains dialysis dependent and most likely has end-stage renal disease. She will be dialyzed this afternoon. 2. Hyponatremia related to renal failure and congestive heart failure. This will improve with dialysis today and electrolytes will need to be repeated again tomorrow. 3. Anemia. At present her anemia is stable and does not need any urgent intervention. 4. Pneumonia. She has aspiration pneumonia and currently afebrile. She remains on Zosyn. 5. Generalized weakness and deconditioning. The patient is very weak and deconditioned and likely to require subacute rehab.
[2019-11-09] MEDS ORDERED: ZOSY1SOL4 IV (11:27)
[2019-11-09] MEDS ORDERED: METO1TAB33 PO (11:27)
[2019-11-09] MEDS ORDERED: NYST10006 TOP (11:27)
[2019-11-09] MEDS ORDERED: INSUHUMDS SC ×2 (11:27)
[2019-11-09] MEDS ORDERED: RISATAB3 PO (11:27)
[2019-11-09] MEDS ORDERED: Petrolatum,White TOP (11:27)
[2019-11-09] MEDS ORDERED: LIDO5TD TD (11:27)
[2019-11-09] MEDS ORDERED: ELIQ5TAB PO (11:27)
[2019-11-09] MEDS ORDERED: ACET1TAB55 PO (11:27)
[2019-11-09] MEDS ORDERED: SIMETHICONE 80 MG CHEW TAB PO PRN (12:45)
--- NOTE | 2019-11-09 18:02 | DSES ---
DATE OF ADMISSION: 10/13/2019 DATE OF DISCHARGE: 11/09/2019 CONSULTANTS DURING ADMISSION: Thoracic surgery, Dr. Jose Montes, estimator and drafter, Dr. Muñoz, Dr. Orta, Dr. Bradley, Dr. Tsang, mold tooler, Dr. Lorraine Zuniga, Dr. Lonny Zuniga, sales mgr, Dr. Dru Menjivar, Dr. Clemons Jaime. PROCEDURES DURING ADMISSION: On 10/13/2019: Pericardial window, pericardiostomy, and distal sternectomy. Left subclavian venous Cordis placement by Dr. Orta 10/13/2019. On 10/17/2019, insertion of a left lateral chest tube. Peripherally inserted central catheter (PICC) line placement 10/20/2019. Pacemaker placement 10/22/2019 due to complete heart block. 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 Dialysis catheter placement on 10/28/[address] Mathis. DISCHARGE DIAGNOSES: 1. Pericardial effusion status post pericardial window. 2. Oliguria acute renal failure and chronic kidney disease, stage III, requiring hemodialysis. 3. Decompensated heart failure, systolic and diastolic dysfunction. 4. Atrial fibrillation with rapid ventricular rate, paroxysmal. 5. Sick sinus syndrome with complete heart block, requiring pacemaker placement. 6. Aspiration pneumonia. Tracheoesophageal fistula has been ruled out. 7. Cardiac arrest due to complete heart block with successful resuscitation and implantation of a permanent pacemaker. 8. Congestive heart failure with pleural effusion, requiring left lateral chest tube placement. 9. Aspiration pneumonia versus hospital-acquired pneumonia. Still on intravenous (IV) Zosyn. 10. History of rheumatoid arthritis. 11. History of coronary artery disease. 12. Hypertension. 13. Possible shingles infection. 14. Patient is hemodialysis dependent. 15. Right basilic vein thrombus. MEDICATIONS: - Zosyn, renally dosed, 2.25 grams IV every 6 hours - apixaban 5 twice a day - Tylenol 650 every 6 as needed - Desitin topically - Humalog insulin sliding scale before food, at bedtime - lidocaine patch topically as needed - metoprolol 100 daily - nystatin topically twice a day DISCHARGE INSTRUCTIONS: Patient is to continue to see nephrology for dialysis needs and infectious disease specialist, Dr. San, for the aspiration pneumonia. HOSPITAL COURSE: This is a 78-year-old female, admitted for shortness of breath, found to have atrial fibrillation with rapid ventricular response (RVR), pneumonia, heart failure, and pericardial effusion with acute hypoxemic respiratory failure. Patient had pericardial window by thoracic surgery, complicated by cardiac arrest, fully resuscitated, and with multiple episodes of atrial fibrillation requiring intravenous (IV) amiodarone and pacemaker placement due to complete heart block. Chest tube was placed in the intensive care unit (ICU). Patient developed oliguric renal failure on chronic kidney disease, stage III. Required dialysis. Patient developed worsening white count with persistent hypoxemia. Tracheoesophageal fistula was postulated and was ruled out by esophagogram. She was resumed back on a regular diet. She was continued on intravenous Zosyn for aspiration pneumonia and had required dialysis, catheter placement for persistent dialysis needs. She was evaluated by infectious disease specialist for persistent leukocytosis. Was found to have some shingles but outside the window for treatment. She is continued on Zosyn for now and still dialysis dependent. Patient did receive multiple doses of IV amiodarone for atrial fibrillation with RVR, rates in the 140s and 150s. Has currently been stable for the past 5 days in sinus rhythm on metoprolol. Pressure is well maintained at 102-119 systolic. She has been afebrile. No white count. DISCHARGE PHYSICAL EXAMINATION: Temperature 97.9, pulse 60, respiratory rate 19, blood pressure 102/51, 91% on room air. GENERAL: Patient is awake, alert, oriented to herself. Disoriented to date. Answers questions appropriately without any conversational dyspnea. She has well-healed scars in the chest where pacemaker has been placed. No jugular venous distention (JVD). No wheezing. HEART: Sounds, S1, S2. Displaced point of maximal impulse. LUNGS: Clear. No wheezing or rales. ABDOMEN: Soft, nontender, nondistended. Positive bowel sounds. EXTREMITIES: No pitting edema. LABORATORY DATA: White count 11, hemoglobin 11, hematocrit 34, platelet count 524. Sodium 131, potassium 3.8, chloride 99, bicarbonate 25, BUN 25, creatinine 4, glucose 149. Microbiology: Urine: Yeast. Pericardial fluid: No organisms. Anaerobic culture: No growth. Sputum culture October 14: No growth. Blood culture October 17: No growth. October 21 urine culture: Yeast-like organism. Gastrointestinal (GI) panel October 25: Negative. Blood culture October 30: Negative. IMAGING STUDIES: Chest x-ray 11/05/2019: No significant change. Bipolar pacer. Right-sided central venous tunneled catheter. No visible pneumothorax or hydrothorax. Pulmonary vasculature is not increased. CT abdomen and pelvis on 11/02/2019: No abscess. New areas of consolidation, right middle lobe and lingula at the lung base. Atelectasis on air bronchograms in the lower lobes bilaterally. Small amount of right pleural fluid. Esophagram on 11/02/2019: Negative esophagogram. Chest CT 10/13/2019: Left lower lobe pneumonia. Small bilateral effusions. Cardiomegaly with large pericardial effusion. Ground-glass opacities in both lungs were nonspecific. May by secondary to air trapping. Vascular ultrasound on 10/16/2019: Occlusive thrombus of basilic vein. Renal ultrasound on 10/21/2019: Chronic medical renal disease. No hydronephrosis. TIME SPENT ON DISCHARGE: 30 minutes.
== END 2019-11-09 13:45 | DRG 853 ==
LOC: M ED 21:34 → M ED INP 10-13 00:22 → ENRESERV 10-13 00:32 → M ICU 10-13 01:18 → M PCU 10-28 14:26 → M MSPAV 11-07 00:18
PROVIDERS: ADMIT Internal Medicine; ATTEND General Practice
PROC: 0PB00ZZ Excision of Sternum, Open Approach (ICD-10-PCS; 2019-10-13)
PROC: 5A1945Z Respiratory Ventilation, 24-96 Consecutive Hours (ICD-10-PCS; 2019-10-13)
PROC: 02HV33Z Insertion of Infusion Device into Superior Vena Cava, Percutaneous Approach (ICD-10-PCS; 2019-10-13)
PROC: 0W9D00Z Drainage of Pericardial Cavity with Drainage Device, Open Approach (ICD-10-PCS; principal; 2019-10-13 09:09)
PROC: 0W9930Z Drainage of Right Pleural Cavity with Drainage Device, Percutaneous Approach (ICD-10-PCS; 2019-10-17)
PROC: 02HV33Z Insertion of Infusion Device into Superior Vena Cava, Percutaneous Approach (ICD-10-PCS; 2019-10-18)
PROC: 02HV33Z Insertion of Infusion Device into Superior Vena Cava, Percutaneous Approach (ICD-10-PCS; 2019-10-20)
PROC: 0JH606Z Insertion of Pacemaker, Dual Chamber into Chest Subcutaneous Tissue and Fascia, Open Approach (ICD-10-PCS; 2019-10-27)
PROC: 02H73JZ Insertion of Pacemaker Lead into Left Atrium, Percutaneous Approach (ICD-10-PCS; 2019-10-27)
PROC: 02HL3JZ Insertion of Pacemaker Lead into Left Ventricle, Percutaneous Approach (ICD-10-PCS; 2019-10-27)
PROC: 0JH63XZ Insertion of Tunneled Vascular Access Device into Chest Subcutaneous Tissue and Fascia, Percutaneous Approach (ICD-10-PCS; 2019-10-28)
PROC: 30233N1 Transfusion of Nonautologous Red Blood Cells into Peripheral Vein, Percutaneous Approach (ICD-10-PCS; 2019-10-29)
PROC: 5A1D90Z Performance of Urinary Filtration, Continuous, Greater than 18 hours Per Day (ICD-10-PCS; 2019-10-30)
DX: A41.9 Sepsis, unspecified organism (principal); J18.9 Pneumonia, unspecified organism; J96.01 Acute respiratory failure with hypoxia; G93.41 Metabolic encephalopathy; I46.9 Cardiac arrest, cause unspecified; I50.43 Acute on chronic combined systolic (congestive) and diastolic (congestive) heart failure; N17.0 Acute kidney failure with tubular necrosis; J86.0 Pyothorax with fistula; J69.0 Pneumonitis due to inhalation of food and vomit; I30.9 Acute pericarditis, unspecified; E87.2 Acidosis; I31.4 Cardiac tamponade; I13.0 Hypertensive heart and chronic kidney disease with heart failure and stage 1 through stage 4 chronic kidney disease, or unspecified chronic kidney disease; I44.2 Atrioventricular block, complete; I82.611 Acute embolism and thrombosis of superficial veins of right upper extremity; J98.11 Atelectasis; N39.0 Urinary tract infection, site not specified; E87.1 Hypo-osmolality and hyponatremia; D62 Acute posthemorrhagic anemia; E44.0 Moderate protein-calorie malnutrition; I48.0 Paroxysmal atrial fibrillation; R65.20 Severe sepsis without septic shock; M06.9 Rheumatoid arthritis, unspecified; N18.3 Chronic kidney disease, stage 3 (moderate); Z95.0 Presence of cardiac pacemaker; Z99.2 Dependence on renal dialysis; B02.9 Zoster without complications; E11.319 Type 2 diabetes mellitus with unspecified diabetic retinopathy without macular edema; Z79.899 Other long term (current) drug therapy; K76.0 Fatty (change of) liver, not elsewhere classified; Z87.891 Personal history of nicotine dependence; E11.40 Type 2 diabetes mellitus with diabetic neuropathy, unspecified; E78.5 Hyperlipidemia, unspecified; E66.01 Morbid (severe) obesity due to excess calories; I27.20 Pulmonary hypertension, unspecified; I25.10 Atherosclerotic heart disease of native coronary artery without angina pectoris; Z66 Do not resuscitate; B37.2 Candidiasis of skin and nail; I27.81 Cor pulmonale (chronic); E87.70 Fluid overload, unspecified; I49.5 Sick sinus syndrome; R19.7 Diarrhea, unspecified; L89.159 Pressure ulcer of sacral region, unspecified stage

== ENCOUNTER 2019-11-09 10:01 | Inpatient (IN) | payer MEDICARE ==
[~2019-11-09] VITALS: Ht 152.4 cm; Wt 64.2 kg
[~2019-11-09 10:01] MED LIST changes: +ALRE0.5S OU; +AMLO5TAB6 PO; +GLIM1TAB4 PO; +LORA-622 PO; +QUIN20TA48 PO; +TACR0.1O4 EXT; +TOBRSUS8 OU; +TYLE650T38 PO
[2019-11-09] MEDS ORDERED: NYST10006 TOP (11:27)
[2019-11-09] MEDS ORDERED: ELIQ5TAB PO (11:27)
[2019-11-09] MEDS ORDERED: Petrolatum,White TOP (11:27)
[2019-11-09] MEDS ORDERED: ZOSY1SOL4 IV (11:27)
[2019-11-09] MEDS ORDERED: INSUHUMDS SC ×2 (11:27)
[2019-11-09] MEDS ORDERED: METO1TAB33 PO (11:27)
[2019-11-09] MEDS ORDERED: LIDO5TD TD (11:27)
[2019-11-09] MEDS ORDERED: ACET1TAB55 PO (11:27)
[2019-11-09] MEDS ORDERED: RISATAB3 PO (11:27)
[2019-11-09 14:00] VITALS: BP 116/59
[2019-11-09] MEDS ORDERED: ONDANSETRON 4 MG TAB (S0181) PO PRN (15:30)
[2019-11-09] MEDS ORDERED: LOPERAMIDE 2 MG CAPLET PO PRN (15:30)
[2019-11-09] MEDS ORDERED: DEXTROSE 50% 50 ML SYRINGE IV PRN (15:30)
[2019-11-09] MEDS ORDERED: GLUCOSE 4 GM CHEW TABLET PO PRN (15:30)
[2019-11-09] MEDS ORDERED: SIMETHICONE 80 MG CHEW TAB PO PRN (15:30)
[2019-11-09] MEDS ORDERED: GLUCAGON FOR INJ 1 MG VIAL (J1610) SC PRN (15:30)
--- NOTE | 2019-11-09 16:02 | IPN ---
DATE: 11/09/2019 Mrs. More is seen this morning on her bedside. She underwent hemodialysis yesterday and had some difficulty with low blood pressure and pain, but she did complete her dialysis treatment. This morning she is feeling better now. She denies any fever, chills, nausea, or vomiting. PHYSICAL EXAMINATION: Temperature 97.9 degrees Fahrenheit, heart rate 60 per minute, respiratory rate 18 per minute, blood pressure 102/50 mm of mercury, and oxygen saturation 91% on room air. Head is atraumatic. Neck veins not abnormally distended. Dialysis catheter in right internal jugular vein intact. Heart sounds are irregular in rhythm and lungs with diminished breath sounds. Abdomen soft and nontender, and bowel sounds are present. Extremities without any cyanosis or clubbing. Neurologically, she is sleepy at present but easily arousable. Today's labs show WBC count 11.2, hemoglobin 11.0, and hematocrit 34.9. Sodium 131, potassium 3.8, CO2 of 25, BUN 25, and creatinine 4.0. Glucose 149 and calcium 8.6. PROBLEMS: 1. Acute on chronic renal failure. The patient remains dialysis dependent and will be scheduled for next dialysis tomorrow. 2. Hyponatremia. Her sodium level was 129 yesterday and is up to 131 today. 3. Anemia. Her anemia is stable and does not need any urgent intervention. 4. Pneumonia. The patient seems to be improving, and white blood cell count has come down to 11.2. She remains on Zosyn. 5. Protein calorie malnutrition. This is pretty advanced due to prolonged sickness and poor oral intake. The patient is being encouraged to increase her protein intake. We have also added Nepro for her. MTDD
--- NOTE | 2019-11-09 16:16 | HPEPDOC ---
Housekeeping Aide Note DATE OF ADMISSION: 11-09-19 DATE OF SERVICE: 11-09-19 TIME OF ADMISSION: Please refer to physician's admission order. SOURCE OF ADMISSION INFORMATION: [facility] record and patient CHIEF COMPLAINT: sepsis with encephalopathy HISTORY OF PRESENT ILLNESS: 78F pmh DM, HTN, RA, fatty liver disease, CKD who fell at home with altered mental status and presented to [facility] ED on 10-12-[address] chest showed, Left lower lobe pneumoniaCardiomegaly with large pericardial effusionGroundglass opacities in both lungs and she was admitted for hypoxic respiratory failure and metabolic encephalopathy. CT head showed, Bilateral occipital lobe chronic infarcts. She was found to be in Afib with rapid RVR, ECHO on 10-13-19 showing, LVEF of 35% with grade 2 diastolic dysfunction with a moderate to large pericardial effusion noted with some features of cardiac tamponade. She was evaluated by cardiothoracic surgeon who performed a tube pericardiostomy and pericardial window on 10-13-19 after which she was bradycardic requiring external pacing and had a left subclavian venous Cordis placement that same day. She underwent a left sided chest tube placement on 10-17-19 for pleural effusion which drained 1L of fluid. 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 During her hospital course she developed severe KAELYN on CKD and was started on dialysis after permacath placement on 10-28-19. She was followed by infectious disease for her pneumonia thought to be due to aspiration and maintained on a course of Zosyn and noted to have a herpetic zoster rash on her left inner thigh. She was evaluated by therapy, found to be significantly below her baseline for mobility and ADLs and deemed medically appropriate for discharge to on 11-09-19. REVIEW OF SYSTEMS: The following is a completed review of systems and has been reviewed. Review of systems otherwise unremarkable. PAIN: Patient self reports no pain EYES: No recent vision changes EARS, NOSE, & THROAT: No throat pain, or dysphagia, or rhinorrhea CARDIOVASCULAR: Denies chest pain or palpitations PULMONARY: Denies shortness of breath GASTROINTESTINAL: +incontinence GENITOURINARY: denies dysuria MUSCULOSKELETAL: generalized weakness NEUROLOGICAL:+confused HEMATOLOGICAL: denies easy bruising SKIN: sacral wound, left inner thigh rash, sternal incision PSYCHIATRIC: Unremarkable All other review of systems found to be negative. PAST MEDICAL HISTORY: as per HPI PAST SURGICAL HISTORY: as per HPI ALLERGIES: Please see below. MEDICATIONS: Please see below. SOCIAL HISTORY: Former smoker, no etoh/illicit drugs DIET: renal, fluid restrict PHYSICAL EXAMINATION: VITAL SIGNS: Please see below. GENERAL: Pleasant and cooperative. No acute distress. HEENT: PERRL. Extraocular movements intact. Clear conjunctiva CARDIOVASCULAR: Regular rate and rhythm. No murmurs, rubs, or gallops LUNGS: decreased breath sounds bilat, No wheezes. No rhonchi ABDOMEN: Soft, nontender, nondistended. Positive bowel sounds. Normal active bowel sounds NEUROLOGICAL: Alert and oriented to self only, Cranial nerves II through XII grossly intact. Sensation grossly intact EXTREMITIES: 4\5 strength bilateral upper extremities. 4\5 strength right lower extremity. 4/5 strength in left lower extremity. SKIN: sacral fold stage 2 ulcer, +external hemorrhoids, left inner thigh with dried vesicular lesions, sternal incision c/d/i LABORATORY DATA: Please see below. IMAGING:Imaging documentation personally reviewed by record FUNCTIONAL STATUS: Premorbid: Independent with all activities of daily life as well as mobility On Admission: Min assist for all functional transfers, ambulation, dressing, bed mobility GOALS: Mod-I household distances, functional transfers, stairs, dressing, toileting, bathing, medical optimization, ASSESSMENT:78-year-old F with past medical history of HTN, CKD who presents status post complicated and prolonged hospital course for sepsis, acute respiratory failure, encephalopathy PLAN: 1. Rehab- PT/OT advance gait and ADL training, pacemaker and sternal precautions- strengthen/stretch/maintain ROM all 4 limbs- teach energy conservation -DRAMATIC DIRECTOR for cog 2. Neuro: patient presenting with persistent encephalopathy likely due to infection, metabolic derangement, and recent episodes of asystole possibly causing hypoxic injury -will avoid deliriogenics, c/u to treat infectious source 3. 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 Resp: c/u Zosyn for aspiration pneumonia, will consult ID to continue to assist in treatment -Duonebs and guaifenesin 5. Renal: patient with recent initiation of dialysis, renal consulted to assist in management 6. GI: c/u protonic for ppx 7. DVT ppx: on eliquis for Afib, also noted to have right UE basilica vein thrombus on 10-16-19 8. Skin: frequent rubén-care for fecal incontinence and barrier cream 9. Pain: Tylenol prn 10. Dispo: TBD POST ADMISSION PHYSICIAN EVALUATION: Medical and functional status: Description of medical status, medical assessment: As above. Rehabilitation diagnosis and current and prior cold morbid medical conditions as above. Risk of complications and plans to mitigate them as above. Description of functional status current status is as above. Prior status as above. Status compared to preadmission: There are no clinically significant differences between the patient's current status and the information described on the preadmission screening document. Treatment plan anticipated: Treatment plan is as described above. Required disciplines including physical therapy, occupational therapy, others as noted above. Intensity of services: 3 hours a day, 6 days a week. Special considerations: There are no specific special or safety considerations that would likely preclude immediate implementation of an intensive rehabilitation program or subsequently influence the plan of care. ATTESTATION: Considering all the information above, it is my best judgment that this patient requires intensive rehabilitation therapy as described above and an inpatient hospital environment due to the complexity of nursing, medical, and rehabilitation needs required by the patient. Furthermore, this patient can reasonably be expected to participate in an benefit from an inpatient rehabilitation stay with an interdisciplinary team approach to the delivery of rehabilitation care under the direction and supervision of rehabilitation physician. PROGNOSIS: Good ESTIMATED LENGTH OF STAY:18-21 days. PROJECTED DISCHARGE DESTINATION: Home with family support and any durable medical equipment required to increase functional safety and mobility. TIME SPENT COUNSELING AND COORDINATING INITIAL CARE: Greater than 70 minutes. Vital Signs Vital Sign - Last 24 Hours 11/09/19 14:00 Temp 97.0 Pulse 60 Resp 17 B/P (MAP) 116/59 (78) Pulse Ox 92 O2 Delivery Room Air Home Medications Scheduled Apixaban (Eliquis) 5 Mg Tablet, 5 MG PO BID Insulin Human Lispro (Humalog) 100 Unit/1 Ml Vial, 0 UNITS SC AC Insulin Human Lispro (Humalog) 100 Unit/1 Ml Vial, 0 UNITS SC QHS L.acidoph/L.bulg/B.bif/S.therm (Mandie-Bid Caplet) 1 Each Tablet, 1 EA PO WMHS Metoprolol Succinate (Metoprolol Succinate) 100 Mg Tab.er.24h, 100 MG PO DAILY Nystatin (Nystop) 60 Gm Powder, 0 DOSE TOP BID Wcrmzclzptze-Okci-Kpaerpdk,Iso (Zosyn 2.25 gm/50 ml Galaxy Bag) 2.25 Gm/50 Ml Froz.piggy, 1 KATJA IV Q6H Scheduled PRN Acetaminophen (Acetaminophen) 325 Mg Tablet, 650 MG PO Q6HP PRN for PAIN / FEVER Lidocaine (Lidocaine) 5% Adh..patch, 1 PATCH TD DAILY PRN for pain [Petrolatum,White] 99 GM OINT...G., 0 DOSE TOP ASDIRECTED PRN for AFTER BM OR BATH Allergies Coded Allergies: No Known Allergies (Unverified , 10/15/18) A-FIB/CHADSVASC A-FIB History Current/History of A-Fib/PAF?: Yes Current PO Anticoag Therapy: Yes CLARK AHUJA MD Nov 09, 2019 16:15
[2019-11-09] MEDS: REMEDY PHYTOPLEX Z-GUARD PASTE 113GM TUBE (FROM STOREROOM PRODUCT) TOP SCH ×2 (16:50→20:36)
[2019-11-09] MEDS: PIPERACILLIN/TAZOBACTAM SOD 2.25 GM in D5W MINI-BAG PLUS 50 ML IV SCH (16:50)
[2019-11-09] MEDS: LACTOBACILLUS ACIDOPHILUS CAP (BACID) PO SCH ×2 (16:50→20:35)
[2019-11-09] MEDS: IPRATROPIUM 0.5MG/ALBUTEROL 2.5MG INH SOL UD 3ML (DUONEB)(J7620) NEB SCH ×2 (16:53→19:47)
[2019-11-09] MEDS: HumaLOG INSULIN (NovoLOG) PER UNIT SC SCH ×2 (17:53→20:39)
[2019-11-09] MEDS ORDERED: LACTOBACILLUS ACIDOPHILUS CAP (BACID) PO SCH (18:00)
[2019-11-09 20:00] VITALS: BP 124/57
[2019-11-09] MEDS: APIXABAN 5 MG TAB (ELIQUIS) PO SCH (20:35)
[2019-11-09] MEDS: NYSTATIN 100,000 UNITS/GM TOPICAL PWD 15 GM TOP SCH (20:36)
[2019-11-09] MEDS ORDERED: **NOTE PATIENT COMMENT** MISC XX SCH (21:00)
[2019-11-10] MEDS: PIPERACILLIN/TAZOBACTAM SOD 2.25 GM in D5W MINI-BAG PLUS 50 ML IV SCH ×3 (00:41→18:15)
[2019-11-10 06:00] VITALS: BP 177/79
[2019-11-10] MEDS: IPRATROPIUM 0.5MG/ALBUTEROL 2.5MG INH SOL UD 3ML (DUONEB)(J7620) NEB SCH ×4 (07:32→19:40)
[2019-11-10] MEDS: METOPROLOL SUCC (TopROL XL) 100MG *XL* TAB PO SCH (08:07)
[2019-11-10] MEDS: LACTOBACILLUS ACIDOPHILUS CAP (BACID) PO SCH ×4 (08:07→21:25)
[2019-11-10] MEDS: ACETAMINOPHEN TAB 650MG DOSE (2X325MG) PO PRN (08:08)
[2019-11-10] MEDS: APIXABAN 5 MG TAB (ELIQUIS) PO SCH ×2 (08:08→21:25)
[2019-11-10] MEDS: NYSTATIN 100,000 UNITS/GM TOPICAL PWD 15 GM TOP SCH ×2 (08:09→21:28)
[2019-11-10] MEDS: REMEDY PHYTOPLEX Z-GUARD PASTE 113GM TUBE (FROM STOREROOM PRODUCT) TOP SCH ×4 (08:09→21:27)
[2019-11-10] MEDS: HumaLOG INSULIN (NovoLOG) PER UNIT SC SCH ×4 (08:10→21:00)
[2019-11-10 08:15] LABS: BASO # 0.1 10^3/uL (0.0-0.2); EOS # 0.4 10^3/uL (0.0-0.5); EOS % 2.9 % (0.0-3.0); HEMATOCRIT 34.6 % (36.0-47.0); HEMOGLOBIN 10.7 g/dl (12.0-15.5); LYMPH # 1.8 10^3/uL (1.5-5.0); LYMPH % 13.2 % (24.0-44.0); MEAN CORPUSCULAR HEMOGLOBIN 25.9 pg (27.0-33.0); MEAN CORPUSCULAR HGB CONC 30.9 g/dl (32.0-36.5); MEAN CORPUSCULAR VOLUME 83.8 fl (80.0-96.0); MONO # 0.9 10^3/uL (0.0-0.8); MONO % 6.5 % (0.0-5.0); NEUTROPHILS # 10.5 10^3/uL (1.5-8.5); NEUTROPHILS % 75.8 % (36.0-66.0); PLATELET COUNT, AUTOMATED 624 10^3/uL (150-450); RED BLOOD COUNT 4.13 10^6/uL (4.00-5.40); WHITE BLOOD COUNT 13.9 10^3/uL (4.0-10.0)
[2019-11-10 08:26] LABS: ALBUMIN 1.7 GM/DL (3.2-5.2); BILIRUBIN,TOTAL 0.4 MG/DL (0.2-1.0); CREATININE FOR GFR 5.99 MG/DL (0.55-1.30); GLOMERULAR FILTRATION RATE 7.3 (>39); POTASSIUM SERUM 5.3 MEQ/L (3.5-5.1); TOTAL PROTEIN 7.8 GM/DL (6.4-8.2)
[2019-11-10] MEDS ORDERED: LIDOCAINE 5% (LIDODERM) PATCH TD SCH (09:00)
[2019-11-10] MEDS ORDERED: DARBEPOETIN 100 MCG/0.5 ML *DIALYSIS* SYRINGE (J0882) IV SCH (13:00)
--- NOTE | 2019-11-10 13:54 | IPN ---
DATE OF SERVICE: 11/10/2019 SUBJECTIVE: Cheryl was seen in the morning in the rehabilitation unit and later in the afternoon at the bedside in dialysis. She is a very poor historian and cannot give me any history. Specifically, unable to tell me how her prior dialysis treatments were going and also unable to tell me how her rehabilitation therapy is going. Nursing staff reports that she walked ten steps today. Temperature 98.1, pulse 60, respiratory rate 18, blood pressure 177/79, saturating 96% on room air. Intake was not recorded. Weight in the bed scale today is 63 kg. General: She is seen sitting in the wheelchair getting her hair brushed by the nursing staff. She is awake, alert, and cooperative with physical examination and oriented to person and place. Neck veins are not elevated. Dialysis catheter in the right chest wall is tunneled with dressing clean, dry, and intact. Heart sounds are regular at the right around 60 beats per minute. Lung sounds are clear to auscultation bilaterally with prolonged expiration and occasional rhonchus. Abdomen is soft and nontender. The extremities show wrappings on both legs, and there is no edema. Neurologic: She is a very poor historian but cooperates with physical examination and is awake and alert. LABORATORIES: White count 13.9, hemoglobin 10.7, platelets 624. Sodium 131, potassium 5.3, bicarbonate 19. INPATIENT MEDICATIONS: I am resuming her on Aranesp. She otherwise continues on renally-dosed Zosyn, apixaban, and remainder of medications are unchanged from prior. PROBLEMS: 1. Acute on chronic renal failure. The patient remains dialysis dependent. She will be dialyzed today with 1-1.5 liters of fluid to be removed as tolerated by hemodynamics. Her volume status and electrolytes are acceptable. 2. Anemia. It is at the target, and she is receiving low dose of Aranesp. 3. Hyponatremia. It is mild and expected to continue to improve with dialysis. No further intervention is needed. She is on a renal diet. 4. History of atrial fibrillation. The patient is on beta hank and anticoagulation. Management is deferred to primary service. 5. Systolic congestive heart failure. Echocardiogram from October 2019 is reviewed. Left ventricular ejection fraction of 35%, and there is also grade 2 diastolic dysfunction. Her volume status is well compensated and is principally regulated via [id number] hemodialysis.
[2019-11-10] MEDS: guaiFENesin 200 MG TAB PO SCH ×2 (16:00→21:25)
--- NOTE | 2019-11-10 16:00 | HPEPDOC ---
General Date of Admission Nov 09, 2019 at 13:51 Date of Service: Nov 10, 2019 Chief Complaint The patient is a 78-year-old female admitted with a reason for visit of CHF. Source: Old records Exam Limitations: Clinical conditions History of Present Illness Ms. More is a 78-year-old female who was transferred to the acute rehabilitation following an extended hospitalization due to decompensated heart failure, pericardial effusion status post pericardial window complicated by cardiac arrest resulting in permanent pacemaker placement, aspiration pneumonia, A. fib with RVR. She further developed oliguric renal failure on CKD stage III requiring continued dialysis. Patient was assessed by acute rehabilitation and found to be below her baseline, discharged to the ARU on 11/08. Patient is seen at dialysis this afternoon. She is extremely tired and sleepy. However a 10 point review of systems was negative. Home Medications Scheduled Apixaban (Eliquis) 5 Mg Tablet, 5 MG PO BID Insulin Human Lispro (Humalog) 100 Unit/1 Ml Vial, 0 UNITS SC AC Insulin Human Lispro (Humalog) 100 Unit/1 Ml Vial, 0 UNITS SC QHS L.acidoph/L.bulg/B.bif/S.therm (Mandie-Bid Caplet) 1 Each Tablet, 1 EA PO WMHS Metoprolol Succinate (Metoprolol Succinate) 100 Mg Tab.er.24h, 100 MG PO DAILY Nystatin (Nystop) 60 Gm Powder, 0 DOSE TOP BID Tvuxeatyeyfo-Lliu-Ryefvyvx,Iso (Zosyn 2.25 gm/50 ml Galaxy Bag) 2.25 Gm/50 Ml Froz.piggy, 1 KATJA IV Q6H Scheduled PRN Acetaminophen (Acetaminophen) 325 Mg Tablet, 650 MG PO Q6HP PRN for PAIN / FEVER Lidocaine (Lidocaine) 5% Adh..patch, 1 PATCH TD DAILY PRN for pain [Petrolatum,White] 99 GM OINT...G., 0 DOSE TOP ASDIRECTED PRN for AFTER BM OR BATH Allergies Coded Allergies: No Known Allergies (Unverified , 10/15/18) Past Medical History Medical History Pericardial effusion S/P pericardial window A. fib with RVR, paroxysmal Decompensated heart failure, systolic and diastolic dysfunction. 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 Aspiration pneumonia versus HAP. Complete IV Zosyn 11/09. Cardiac arrest due to complete heart block. CHF with pleural effusion, requiring left lateral chest tube placement Diabetes Hypertension Oliguric acute renal failure on Chronic kidney disease stage III, currently HD Rheumatoid arthritis. FLD CAD Shingles. Right basilic vein thrombus Surgical History Please see above Family History Denied any pertinent family history Social History * Smoker: Denies Alcohol: Denies Drugs: denies A-FIB/CHADSVASC A-FIB History Current/History of A-Fib/PAF?: Yes Current PO Anticoag Therapy: Yes (Eliquis) Review of Systems Constitutional: Reports: Weakness, Fatigue; Denies: Chills, Fever, Night Sweats Eyes: Denies: Pain ENT: Denies: Head Aches Skin: Denies: Rash Pulmonary: Denies: Dyspnea, Cough Cardiovascular: Denies: Chest Pain, Palpitations, Orthopnea, Paroxysmal Noc. Dyspnea, Edema, Lt Headedness Gastrointestinal: Denies: Nausea, Vomiting, Abdominal Pain, Diarrhea, Constipation Genitourinary: Denies: Dysuria Hematologic: Denies: Bruising Musculoskeletal: Denies: Neck Pain, Back Pain, Joint Pain, Muscle Pain, Spasms Neurological: Denies: Weakness, Numbness, Change in speech, Confusion Physical Examination General Exam: Positive: No Acute Distress, Other (lethargic, currently on HD. Exam limited due to patient condition.) Eye Exam: Positive: PERRLA, Conjunctiva & lids normal; Negative: Sclera icteric ENT Exam: Positive: Atraumatic, Mucous membr. moist/pink, Pharynx Normal Neck Exam: Positive: Supple; Negative: thyromegaly Chest Exam: Positive: Clear to auscultation, Normal air movement Heart Exam: Positive: Rate Normal, Regular Rhythm, Other (distant heart sounds); Negative: Rubs Telemetry: Positive: No significant arrhythmia Abdomen Exam: Positive: Normal bowel sounds, Soft; Negative: Tenderness Extremity Exam: Positive: Normal pulses (palpable pulses bilateral LEs); Negative: Clubbing, Cyanosis, Edema Skin Exam: Positive: Nl turgor and temperature Neuro Exam: Positive: Normal Speech Psych Exam: Positive: Mood NL Vital Signs Vital Signs Date Time Temp Pulse Resp B/P (MAP) Pulse Ox O2 Delivery O2 Flow Rate FiO2 11/10/19 08:07 60 177/79 11/10/19 06:00 98.1 18 96 Room Air 11/09/19 21:00 2.0 Laboratory Data Labs 24H Laboratory Tests 2 11/09/19 16:49: Bedside Glucose (Misc Panel) 109 11/09/19 20:38: Bedside Glucose (Misc Panel) 155H 11/10/19 06:05: Bedside Glucose (Misc Panel) 138H 11/10/19 07:31: Immature Granulocyte % (Auto) 0.6, Neutrophils (%) (Auto) 75.8H, Lymphocytes (%) (Auto) 13.2L, Monocytes (%) (Auto) 6.5H, Eosinophils (%) (Auto) 2.9, Basophils (%) (Auto) 1.0, Neutrophils # (Auto) 10.5H, Lymphocytes # (Auto) 1.8, Monocytes # (Auto) 0.9H, Eosinophils # (Auto) 0.4, Basophils # (Auto) 0.1, Nucleated Red Blood Cells % (auto) 0.0 11/10/19 07:32: Anion Gap 12, Glomerular Filtration Rate 7.3L, Calcium Level 8.0L, Total Bilirubin 0.4, Aspartate Amino Transf (AST/SGOT) 26, Alanine Aminotransferase (ALT/SGPT) 10L, Alkaline Phosphatase 72, Total Protein 7.8, Albumin 1.7L, Albumin/Globulin Ratio 0.28L 11/10/19 12:05: Bedside Glucose (Misc Panel) 187H CBC/BMP Laboratory Tests 11/10/19 07:31 11/10/19 07:32 Assessment/Plan Ms. More is a 78-year-old female who was transferred to the acute rehabilitation following an extended hospitalization due to decompensated heart failure, pericardial effusion status post pericardial window complicated by cardiac arrest resulting in permanent pacemaker placement, aspiration pneumonia, A. fib with RVR. She further developed oliguric renal failure on CKD stage III requiring continued dialysis. Patient was assessed by acute rehabilitation and found to be below her baseline, discharged to the ARU on 11/08. #1. General deconditioning. Management per physiatry #2 . Acute on chronic kidney failure. Now HD dependent. Management per nephrology. #3. Pneumonia. WBC count is now 13.9, continue daily monitoring. Patient completes Zosyn today. Consult with Dr. San in the morning #4. Anemia of chronic disease. Continued management per nephrology; Currently on Aranesp No indication for acute intervention #5. Protein malnutrition. Secondary to prolonged illness and poor by mouth intake. Nepro added per nephrology. Continue to encourage increased protein intake #6 Hypertension/recent cardiac arrest. Continue cardioprotective medications Plan / VTE VTE Prophylaxis Ordered?: Yes (chronic Eliquis) BRINA MCKEON PA-C Nov 10, 2019 16:00
--- NOTE | 2019-11-10 16:32 | IPNPDOC ---
PM&R Progress Note DATE OF SERVICE: Nov 10, 2019 Substation Mechanic Progress Note Subjective: Patient seen sitting up in bed eating, stating she has no pain, but i very tired. REVIEW OF SYSTEMS: The following is a completed review of systems and has been reviewed. Review of systems otherwise unremarkable. PAIN: Patient self reports no pain EYES: No recent vision changes EARS, NOSE, & THROAT: No throat pain, or dysphagia, or rhinorrhea CARDIOVASCULAR: Denies chest pain or palpitations PULMONARY: Denies shortness of breath GASTROINTESTINAL: +incontinence GENITOURINARY: denies dysuria MUSCULOSKELETAL: generalized weakness NEUROLOGICAL:+confused HEMATOLOGICAL: denies easy bruising SKIN: sacral wound, left inner thigh rash, sternal incision PSYCHIATRIC: Unremarkable All other review of systems found to be negative. PHYSICAL EXAMINATION: VITAL SIGNS: Please see below. GENERAL: Pleasant and cooperative. No acute distress. HEENT: PERRL. Extraocular movements intact. Clear conjunctiva CARDIOVASCULAR: Regular rate and rhythm. No murmurs, rubs, or gallops LUNGS: decreased breath sounds bilat, No wheezes. No rhonchi ABDOMEN: Soft, nontender, nondistended. Positive bowel sounds. Normal active bowel sounds NEUROLOGICAL: Alert and oriented to self only, Cranial nerves II through XII grossly intact. Sensation grossly intact EXTREMITIES: 4\5 strength bilateral upper extremities. 4\5 strength right lower extremity. 4/5 strength in left lower extremity. SKIN: sacral fold stage 2 ulcer, +external hemorrhoids, left inner thigh with dried vesicular lesions, sternal incision c/d/i ASSESSMENT:78-year-old F with past medical history of HTN, CKD who presents status post complicated and prolonged hospital course for sepsis, acute resp iratory failure, encephalopathy PLAN: 1. Rehab- PT/OT advance gait and ADL training, pacemaker and sternal precautions- strengthen/stretch/maintain ROM all 4 limbs- teach energy conservation -BASEBALL INSPECTOR for cog 2. Neuro: patient presenting with persistent encephalopathy likely due to infection, metabolic derangement, and recent episodes of asystole possibly causing hypoxic injury -will avoid deliriogenics, c/u to treat infectious source 3. 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 Resp: c/u Zosyn for aspiration pneumonia, will consult ID to continue to assist in treatment -Duonebs and guaifenesin 5. Renal: patient with recent initiation of dialysis, renal consulted to assist in management 6. GI: c/u protonic for ppx 7. DVT ppx: on eliquis for Afib, also noted to have right UE basilica vein thrombus on 10-16-19 8. Skin: frequent rubén-care for fecal incontinence and barrier cream 9. Pain: Tylenol prn 10. Dispo: TBD Allergies Coded Allergies: No Known Allergies (Unverified , 10/15/18) Vital Signs Vital Signs Date Time Temp Pulse Resp B/P (MAP) Pulse Ox O2 Delivery O2 Flow Rate FiO2 11/10/19 08:07 60 177/79 11/10/19 06:00 98.1 18 96 Room Air 11/09/19 21:00 2.0 Laboratory Data CBC/BMP Laboratory Tests 11/10/19 07:31 11/10/19 07:32 Labs 24H Laboratory Tests 2 11/09/19 16:49: Bedside Glucose (Misc Panel) 109 11/09/19 20:38: Bedside Glucose (Misc Panel) 155H 11/10/19 06:05: Bedside Glucose (Misc Panel) 138H 11/10/19 07:31: Immature Granulocyte % (Auto) 0.6, Neutrophils (%) (Auto) 75.8H, Lymphocytes (%) (Auto) 13.2L, Monocytes (%) (Auto) 6.5H, Eosinophils (%) (Auto) 2.9, Basophils (%) (Auto) 1.0, Neutrophils # (Auto) 10.5H, Lymphocytes # (Auto) 1.8, Monocytes # (Auto) 0.9H, Eosinophils # (Auto) 0.4, Basophils # (Auto) 0.1, Nucleated Red Blood Cells % (auto) 0.0 11/10/19 07:32: Anion Gap 12, Glomerular Filtration Rate 7.3L, Calcium Level 8.0L, Total Bilirubin 0.4, Aspartate Amino Transf (AST/SGOT) 26, Alanine Aminotransferase (ALT/SGPT) 10L, Alkaline Phosphatase 72, Total Protein 7.8, Albumin 1.7L, Albumin/Globulin Ratio 0.28L 11/10/19 12:05: Bedside Glucose (Misc Panel) 187H Current Medications Current Medications Current Medications Medications (Trade) Dose Ordered Sig/Renetta Route PRN Reason Start Time Stop Time Status Last Admin Dose Admin Acetaminophen (Tylenol Tab) 650 mg Q4HP PRN PO fever/MILD PAIN (PS 1-4) 11/09/19 15:30 11/10/19 08:08 Albuterol/ Ipratropium (Duoneb (Ipr 0.5mg/Alb 2.5mg)) 3 ml RQID NEB 11/09/19 16:00 11/10/19 07:32 Apixaban (Eliquis) 5 mg BID PO 11/09/19 21:00 11/10/19 08:08 Darbepoetin Francisco (Aranesp (Dialysis Use)) 100 mcg HD IV 11/10/19 13:00 Dextrose (Dextrose 50%) 25 ml ASDIRECTED PRN IV SEE LABEL COMMENTS 11/09/19 15:30 Glucagon (Glucagon) 1 mg ASDIRECTED PRN SC SEE LABEL COMMENTS 11/09/19 15:30 Glucose (Glucose) 16 GM ASDIRECTED PRN PO SEE LABEL COMMENTS 11/09/19 15:30 Guaifenesin (Robitussin Tab) 400 mg TID PO 11/10/19 16:00 Insulin Human Lispro (HumaLOG INSULIN) SEE PROTOCOL TABLE AC SC 11/09/19 17:30 11/10/19 12:24 Insulin Human Lispro (HumaLOG INSULIN) SEE PROTOCOL TABLE QHS SC 11/09/19 21:00 Lactobacillus Acidophilus (Bacid) 1 ea ACHS PO 11/09/19 17:30 11/10/19 12:24 Lactobacillus Acidophilus (Bacid) 1 ea WM PO 11/09/19 18:00 UNV Lidocaine (Lidoderm Patch) 1 patch DAILY TD 11/10/19 09:00 11/09/19 16:19 DC Loperamide HCl (Imodium) 2 mg ASDIRECTED PRN PO DIARRHEA 11/09/19 15:30 Metoprolol Succinate (TopROL XL) 100 mg DAILY PO 11/10/19 09:00 11/10/19 08:07 Non-Formulary Medication ( See Comment Field Below ) REMOVE LIDODERM PATCH DAILY@21 XX 11/09/19 21:00 11/09/19 16:19 DC Nystatin (Mycostatin Powder, Nystop) apply to groin BID TOP 11/09/19 21:00 11/10/19 08:09 Ondansetron HCl (Zofran) 4 mg Q6HP PRN PO NAUSEA 11/09/19 15:30 Piperacillin Sod/ Tazobactam Sod 2.25 gm/Dextrose 50 ml @ 100 mls/hr Q8H IV 11/09/19 17:00 11/10/19 17:29 11/10/19 08:09 Simethicone (Mylicon) 80 mg QIDP PRN PO BLOATING 11/09/19 15:30 CLARK AHUJA MD Nov 10, 2019 16:32
[2019-11-10 20:20] VITALS: BP 118/58
[2019-11-11] MEDS: REMEDY PHYTOPLEX Z-GUARD PASTE 113GM TUBE (FROM STOREROOM PRODUCT) TOP SCH ×6 (01:45→21:10)
[2019-11-11 06:00] VITALS: BP 135/63
[2019-11-11] MEDS: HumaLOG INSULIN (NovoLOG) PER UNIT SC SCH ×4 (07:30→21:00)
[2019-11-11] MEDS: IPRATROPIUM 0.5MG/ALBUTEROL 2.5MG INH SOL UD 3ML (DUONEB)(J7620) NEB SCH ×4 (07:44→19:29)
[2019-11-11] MEDS: APIXABAN 5 MG TAB (ELIQUIS) PO SCH ×2 (07:48→21:10)
[2019-11-11] MEDS: guaiFENesin 200 MG TAB PO SCH ×3 (07:49→21:10)
[2019-11-11] MEDS: LACTOBACILLUS ACIDOPHILUS CAP (BACID) PO SCH ×4 (07:49→21:10)
[2019-11-11] MEDS: METOPROLOL SUCC (TopROL XL) 100MG *XL* TAB PO SCH (07:49)
[2019-11-11] MEDS: NYSTATIN 100,000 UNITS/GM TOPICAL PWD 15 GM TOP SCH ×2 (07:50→21:10)
[2019-11-11 12:26] LABS: BASO # 0.1 10^3/uL (0.0-0.2); BASO % 0.8 % (0.0-1.0); EOS # 0.4 10^3/uL (0.0-0.5); EOS % 2.9 % (0.0-3.0); HEMATOCRIT 34.1 % (36.0-47.0); HEMOGLOBIN 10.7 g/dl (12.0-15.5); LYMPH # 1.8 10^3/uL (1.5-5.0); LYMPH % 14.9 % (24.0-44.0); MEAN CORPUSCULAR HGB CONC 31.4 g/dl (32.0-36.5); MEAN CORPUSCULAR VOLUME 82.8 fl (80.0-96.0); MONO # 0.8 10^3/uL (0.0-0.8); NEUTROPHILS # 8.8 10^3/uL (1.5-8.5); NEUTROPHILS % 73.6 % (36.0-66.0); PLATELET COUNT, AUTOMATED 685 10^3/uL (150-450); RED BLOOD COUNT 4.12 10^6/uL (4.00-5.40)
[2019-11-11 12:41] LABS: CALCIUM LEVEL 8.1 MG/DL (8.8-10.2); CREATININE FOR GFR 3.97 MG/DL (0.55-1.30); GLOMERULAR FILTRATION RATE 11.7 (>39)
--- NOTE | 2019-11-11 13:45 | IPNPDOC ---
Text Note Date of Service The patient was seen on 11/11/19. NOTE I conducted a further chart review this morning. #1. Pneumonia. White count remains elevated, however, has gone from 24,000 initially to 12,[address] San's note on 11/04, patient was to complete 7-10 days of Zosyn; at that time she had completed 6 days. Also, if her procalcitonin was less than 0.25 and patient clinically stable antibiotics could be discontinued. -Procalcitonin 0.9 ---> 0.6 (on 11/01 & 11/04) -Patient remains hemodynamically stable, reported no issues at the time of exam. -As patient has completed 11 days of antibiotics, is hemodynamically stable, her elevated white count is unlikely and infectious etiology and more likely inf lammation. Continue to monitor CBCs, recheck procalcitonin today. I do not believe she needs to continue Zosyn. When visited this afternoon, patient was up getting her shower. Per nursing, she was doing very well today, has been sitting up in her chair, no complaints. VS,Fishbone, I+O VS, Fishbone, I+O Laboratory Tests 11/11/19 08:51 Vital Signs Date Time Temp Pulse Resp B/P (MAP) Pulse Ox O2 Delivery O2 Flow Rate FiO2 11/11/19 07:49 63 118/52 11/11/19 06:00 97.0 18 91 Room Air 11/09/19 21:00 2.0 I&O- Last 24 Hours up to 6 AM 11/11/19 05:59 Intake Total 245 ml Output Total 1000 ml Balance -755 ml BRINA MCKEON PA-C Nov 11, 2019 13:45
[2019-11-11 14:00] VITALS: BP 115/56
--- NOTE | 2019-11-11 15:20 | IPNPDOC ---
PM&R Progress Note DATE OF SERVICE: Nov 11, 2019 Heel Splitter Progress Note Subjective: Patient seen in her room with family bedside. SHe reports her abdomen is cramping, but denies nausea or vomiting. REVIEW OF SYSTEMS: The following is a completed review of systems and has been reviewed. Review of systems otherwise unremarkable. PAIN: Patient self reports no pain EYES: No recent vision changes EARS, NOSE, & THROAT: No throat pain, or dysphagia, or rhinorrhea CARDIOVASCULAR: Denies chest pain or palpitations PULMONARY: Denies shortness of breath GASTROINTESTINAL: +incontinence GENITOURINARY: denies dysuria MUSCULOSKELETAL: generalized weakness NEUROLOGICAL:+confused HEMATOLOGICAL: denies easy bruising SKIN: sacral wound, left inner thigh rash, sternal incision PSYCHIATRIC: Unremarkable All other review of systems found to be negative. PHYSICAL EXAMINATION: VITAL SIGNS: Please see below. GENERAL: Pleasant and cooperative. No acute distress. HEENT: PERRL. Extraocular movements intact. Clear conjunctiva CARDIOVASCULAR: Regular rate and rhythm. No murmurs, rubs, or gallops LUNGS: decreased breath sounds bilat, No wheezes. No rhonchi ABDOMEN: Soft, nontender, nondistended. Positive bowel sounds. Normal active bowel sounds NEUROLOGICAL: Alert and oriented to self and place, Cranial nerves II through XII grossly intact. Sensation grossly intact EXTREMITIES: 4\5 strength bilateral upper extremities. 4\5 strength right lower extremity. 4/5 strength in left lower extremity. SKIN: sacral fold stage 2 ulcer, +external hemorrhoids, left inner thigh with dried vesicular lesions, sternal incision c/d/i ASSESSMENT:78-year-old F with past medical history of HTN, CKD who presents status post complicated and prolonged hospital course for sepsis, acute respiratory failure, encephalopathy PLAN: 1. Rehab- PT/OT advance gait and ADL training, pacemaker and sternal precautions- strengthen/stretch/maintain ROM all 4 limbs- teach energy conservation -ASSEMBLY ROOM SUPERVISOR for cog 2. Neuro: patient presenting with persistent encephalopathy likely due to infection, metabolic derangement, and recent episodes of asystole possibly causing hypoxic injury -will avoid deliriogenics, c/u to treat infectious source 3. 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 Resp: s/p Zosyn for aspiration pneumonia -Duonebs and guaifenesin 5. Renal: patient with recent initiation of dialysis, renal consulted to assist in management 6. GI: c/u protonix for ppx -will change simethicone to standing to help with abdominal cramping, bowel meds are on hold due to frequent stooling 7. DVT ppx: on eliquis for Afib, also noted to have right UE basilica vein thrombus on 10-16-19 8. Skin: frequent rubén-care for fecal incontinence and barrier cream, Tucks added for relief 9. Pain: Tylenol prn 10. Dispo: TBD Allergies Coded Allergies: No Known Allergies (Unverified , 10/15/18) Vital Signs Vital Signs Date Time Temp Pulse Resp B/P (MAP) Pulse Ox O2 Delivery O2 Flow Rate FiO2 11/11/19 14:00 97.9 60 18 115/56 (75) 95 Room Air 11/09/19 21:00 2.0 Laboratory Data CBC/BMP Laboratory Tests 11/11/19 08:51 Labs 24H Laboratory Tests 2 11/10/19 17:03: Bedside Glucose (Misc Panel) 105 11/10/19 20:06: Bedside Glucose (Misc Panel) 144H 11/11/19 05:23: Bedside Glucose (Misc Panel) 120H 11/11/19 08:51: Immature Granulocyte % (Auto) 0.8, Neutrophils (%) (Auto) 73.6H, Lymphocytes (%) (Auto) 14.9L, Monocytes (%) (Auto) 7.0H, Eosinophils (%) (Auto) 2.9, Basophils (%) (Auto) 0.8, Neutrophils # (Auto) 8.8H, Lymphocytes # (Auto) 1.8, Monocytes # (Auto) 0.8, Eosinophils # (Auto) 0.4, Basophils # (Auto) 0.1, Nucleated Red Blood Cells % (auto) 0.0, Anion Gap 10, Glomerular Filtration Rate 11.7L, Calcium Level 8.1L 11/11/19 12:20: Bedside Glucose (Misc Panel) 143H Current Medications Current Medications Current Medications Medications (Trade) Dose Ordered Sig/Renetta Route PRN Reason Start Time Stop Time Status Last Admin Dose Admin Acetaminophen (Tylenol Tab) 650 mg Q4HP PRN PO fever/MILD PAIN (PS 1-4) 11/09/19 15:30 11/10/19 08:08 Albuterol/ Ipratropium (Duoneb (Ipr 0.5mg/Alb 2.5mg)) 3 ml RQID NEB 11/09/19 16:00 11/11/19 11:12 Apixaban (Eliquis) 5 mg BID PO 11/09/19 21:00 11/11/19 07:48 Darbepoetin Francisco (Aranesp (Dialysis Use)) 100 mcg HD IV 11/10/19 13:00 Dextrose (Dextrose 50%) 25 ml ASDIRECTED PRN IV SEE LABEL COMMENTS 11/09/19 15:30 Glucagon (Glucagon) 1 mg ASDIRECTED PRN SC SEE LABEL COMMENTS 11/09/19 15:30 Glucose (Glucose) 16 GM ASDIRECTED PRN PO SEE LABEL COMMENTS 11/09/19 15:30 Guaifenesin (Robitussin Tab) 400 mg TID PO 11/10/19 16:00 11/11/19 07:49 Insulin Human Lispro (HumaLOG INSULIN) SEE PROTOCOL TABLE AC SC 11/09/19 17:30 11/11/19 12:33 Insulin Human Lispro (HumaLOG INSULIN) SEE PROTOCOL TABLE QHS SC 11/09/19 21:00 Lactobacillus Acidophilus (Bacid) 1 ea ACHS PO 11/09/19 17:30 11/11/19 12:32 Lactobacillus Acidophilus (Bacid) 1 ea WM PO 11/09/19 18:00 UNV Lidocaine (Lidoderm Patch) 1 patch DAILY TD 11/10/19 09:00 11/09/19 16:19 DC Loperamide HCl (Imodium) 2 mg ASDIRECTED PRN PO DIARRHEA 11/09/19 15:30 Metoprolol Succinate (TopROL XL) 100 mg DAILY PO 11/10/19 09:00 11/11/19 07:49 Non-Formulary Medication ( See Comment Field Below ) REMOVE LIDODERM PATCH DAILY@21 XX 11/09/19 21:00 11/09/19 16:19 DC Nystatin (Mycostatin Powder, Nystop) apply to groin BID TOP 11/09/19 21:00 3/12/20 07:50 Ondansetron HCl (Zofran) 4 mg Q6HP PRN PO NAUSEA 11/09/19 15:30 Piperacillin Sod/ Tazobactam Sod 2.25 gm/Dextrose 50 ml @ 100 mls/hr Q8H IV 11/09/19 17:00 11/10/19 17:29 DC 11/10/19 18:15 Simethicone (Mylicon) 80 mg QIDP PRN PO BLOATING 11/09/19 15:30 CLARK AHUJA MD Nov 11, 2019 15:20
[2019-11-11] MEDS: SIMETHICONE 80 MG CHEW TAB PO SCH ×3 (16:00→22:24)
[2019-11-11 21:00] VITALS: BP 123/58
[2019-11-11] MEDS: FLUoxetine 20 MG CAP PO SCH (21:10)
[2019-11-12] MEDS: REMEDY PHYTOPLEX Z-GUARD PASTE 113GM TUBE (FROM STOREROOM PRODUCT) TOP SCH ×6 (02:20→21:56)
[2019-11-12 06:00] VITALS: BP 131/62
[2019-11-12 07:19] LABS: HEMATOCRIT 32.6 % (36.0-47.0); HEMOGLOBIN 10.2 g/dl (12.0-15.5); MEAN CORPUSCULAR HEMOGLOBIN 25.7 pg (27.0-33.0); MEAN CORPUSCULAR HGB CONC 31.3 g/dl (32.0-36.5); MEAN CORPUSCULAR VOLUME 82.1 fl (80.0-96.0); PLATELET COUNT, AUTOMATED 633 10^3/uL (150-450); RED BLOOD COUNT 3.97 10^6/uL (4.00-5.40); WHITE BLOOD COUNT 12.9 10^3/uL (4.0-10.0)
[2019-11-12 07:44] LABS: CREATININE FOR GFR 5.71 MG/DL (0.55-1.30)
[2019-11-12 07:45] LABS: CALCIUM LEVEL 8.1 MG/DL (8.8-10.2); GLOMERULAR FILTRATION RATE 7.7 (>39); POTASSIUM SERUM 3.6 MEQ/L (3.5-5.1)
[2019-11-12] MEDS: HumaLOG INSULIN (NovoLOG) PER UNIT SC SCH ×4 (08:30→21:00)
[2019-11-12] MEDS: APIXABAN 5 MG TAB (ELIQUIS) PO SCH ×2 (08:32→21:57)
[2019-11-12] MEDS: METOPROLOL SUCC (TopROL XL) 100MG *XL* TAB PO SCH (08:32)
[2019-11-12] MEDS: LACTOBACILLUS ACIDOPHILUS CAP (BACID) PO SCH ×4 (08:32→21:56)
[2019-11-12] MEDS: guaiFENesin 200 MG TAB PO SCH ×3 (08:32→21:56)
[2019-11-12] MEDS: NYSTATIN 100,000 UNITS/GM TOPICAL PWD 15 GM TOP SCH ×2 (08:33→21:56)
[2019-11-12] MEDS: SIMETHICONE 80 MG CHEW TAB PO SCH ×3 (08:39→21:56)
[2019-11-12] MEDS: IPRATROPIUM 0.5MG/ALBUTEROL 2.5MG INH SOL UD 3ML (DUONEB)(J7620) NEB SCH ×4 (08:45→19:58)
--- NOTE | 2019-11-12 11:28 | IPNPDOC ---
PM&R Progress Note DATE OF SERVICE: Nov 12, 2019 Canvas Baster Progress Note Subjective: Patient seen in her room stating she is feeling ok, but is still having fecal incontinence. REVIEW OF SYSTEMS: The following is a completed review of systems and has been reviewed. Review of systems otherwise unremarkable. PAIN: Patient self reports no pain EYES: No recent vision changes EARS, NOSE, & THROAT: No throat pain, or dysphagia, or rhinorrhea CARDIOVASCULAR: Denies chest pain or palpitations PULMONARY: Denies shortness of breath GASTROINTESTINAL: +incontinence GENITOURINARY: denies dysuria MUSCULOSKELETAL: generalized weakness NEUROLOGICAL:+confused HEMATOLOGICAL: denies easy bruising SKIN: sacral wound, left inner thigh rash, sternal incision PSYCHIATRIC: Unremarkable All other review of systems found to be negative. PHYSICAL EXAMINATION: VITAL SIGNS: Please see below. GENERAL: Pleasant and cooperative. No acute distress. HEENT: PERRL. Extraocular movements intact. Clear conjunctiva CARDIOVASCULAR: Regular rate and rhythm. No murmurs, rubs, or gallops LUNGS: decreased breath sounds bilat, No wheezes. No rhonchi ABDOMEN: Soft, nontender, nondistended. Positive bowel sounds. Normal active bowel sounds NEUROLOGICAL: Alert and oriented to self and place, Cranial nerves II through XII grossly intact. Sensation grossly intact EXTREMITIES: 4\5 strength bilateral upper extremities. 4\5 strength right lower extremity. 4/5 strength in left lower extremity. SKIN: sacral fold stage 2 ulcer, +external hemorrhoids, left inner thigh with dried vesicular lesions, sternal incision c/d/i ASSESSMENT:78-year-old F with past medical history of HTN, CKD who presents status post complicated and prolonged hospital course for sepsis, acute respiratory failure, encephalopathy PLAN: 1. Rehab- PT/OT advance gait and ADL training, pacemaker and sternal precautions- strengthen/stretch/maintain ROM all 4 limbs- teach energy conser vation -ROUGH RIB GRADER for cog 2. Neuro: patient presenting with persistent encephalopathy likely due to infe ction, metabolic derangement, and recent episodes of asystole possibly causing hypoxic injury -will avoid deliriogenics, c/u to treat infectious source -will start low dose antidepressant as well to help with overall function 3. 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 Resp: s/p Zosyn for aspiration pneumonia -Duonebs and guaifenesin 5. Renal: patient with recent initiation of dialysis, renal consulted to assist in management 6. GI: c/u protonix for ppx -c/u simethicone standing to help with abdominal cramping, bowel meds are on hold due to frequent stooling -immodium ordered prn loose stools 7. DVT ppx: on eliquis for Afib, also noted to have right UE basilica vein thrombus on 10-16-19 8. Skin: frequent rubén-care for fecal incontinence and barrier cream, Tucks added for relief 9. Pain: Tylenol prn 10. Dispo: TBD Allergies Coded Allergies: No Known Allergies (Unverified , 10/15/18) Vital Signs Vital Signs Date Time Temp Pulse Resp B/P (MAP) Pulse Ox O2 Delivery O2 Flow Rate FiO2 11/12/19 08:32 60 130/64 11/12/19 06:00 97.3 18 93 Room Air 11/09/19 21:00 2.0 Laboratory Data CBC/BMP Laboratory Tests 11/12/19 06:53 Labs 24H Laboratory Tests 2 11/11/19 12:20: Bedside Glucose (Misc Panel) 143H 11/11/19 16:41: Bedside Glucose (Misc Panel) 196H 11/11/19 20:26: Bedside Glucose (Misc Panel) 194H 11/12/19 05:06: Bedside Glucose (Misc Panel) 138H 11/12/19 06:53: Nucleated Red Blood Cells % (auto) 0.0, Anion Gap 11, Glomerular Filtration Rate 7.7L, Calcium Level 8.1L Current Medications Current Medications Current Medications Medications (Trade) Dose Ordered Sig/Renetta Route PRN Reason Start Time Stop Time Status Last Admin Dose Admin Acetaminophen (Tylenol Tab) 650 mg Q4HP PRN PO fever/MILD PAIN (PS 1-4) 11/09/19 15:30 11/10/19 08:08 Albuterol/ Ipratropium (Duoneb (Ipr 0.5mg/Alb 2.5mg)) 3 ml RQID NEB 11/09/19 16:00 11/12/19 08:45 Apixaban (Eliquis) 5 mg BID PO 11/09/19 21:00 11/12/19 08:32 Darbepoetin Francisco (Aranesp (Dialysis Use)) 100 mcg HD IV 11/10/19 13:00 Dextrose (Dextrose 50%) 25 ml ASDIRECTED PRN IV SEE LABEL COMMENTS 11/09/19 15:30 Fluoxetine HCl (PROzac) 20 mg QHS PO 11/11/19 21:00 11/11/19 21:10 Glucagon (Glucagon) 1 mg ASDIRECTED PRN SC SEE LABEL COMMENTS 11/09/19 15:30 Glucose (Glucose) 16 GM ASDIRECTED PRN PO SEE LABEL COMMENTS 11/09/19 15:30 Guaifenesin (Robitussin Tab) 400 mg TID PO 11/10/19 16:00 11/12/19 08:32 Insulin Human Lispro (HumaLOG INSULIN) SEE PROTOCOL TABLE AC SC 11/09/19 17:30 11/12/19 08:30 Insulin Human Lispro (HumaLOG INSULIN) SEE PROTOCOL TABLE QHS SC 11/09/19 21:00 Lactobacillus Acidophilus (Bacid) 1 ea ACHS PO 11/09/19 17:30 11/12/19 08:32 Lactobacillus Acidophilus (Bacid) 1 ea WM PO 11/09/19 18:00 UNV Lidocaine (Lidoderm Patch) 1 patch DAILY TD 11/10/19 09:00 11/09/19 16:19 DC Loperamide HCl (Imodium) 2 mg ASDIRECTED PRN PO DIARRHEA 11/09/19 15:30 Metoprolol Succinate (TopROL XL) 100 mg DAILY PO 11/10/19 09:00 11/12/19 08:32 Non-Formulary Medication ( See Comment Field Below ) REMOVE LIDODERM PATCH DAILY@21 XX 11/09/19 21:00 11/09/19 16:19 DC Nystatin (Mycostatin Powder, Nystop) apply to groin BID TOP 11/09/19 21:00 11/12/19 08:33 Ondansetron HCl (Zofran) 4 mg Q6HP PRN PO NAUSEA 11/09/19 15:30 Piperacillin Sod/ Tazobactam Sod 2.25 gm/Dextrose 50 ml @ 100 mls/hr Q8H IV 11/09/19 17:00 11/10/19 17:29 DC 11/10/19 18:15 Simethicone (Mylicon) 80 mg QIDP PRN PO BLOATING 11/09/19 15:30 11/11/19 16:36 DC Simethicone (Mylicon) 80 mg TID PO 11/11/19 16:00 11/12/19 08:39 CLARK AHUJA MD Nov 12, 2019 11:28
[2019-11-12] MEDS ORDERED: HEPARIN 1,000 UNITS/ML 10ML VIAL (FOR RADIOLOGY& DIALYSIS ONLY)(J1644-10) IV ONE (12:15)
[2019-11-12] MEDS ORDERED: HEPARIN 1,000 UNITS/ML 10ML VIAL (FOR RADIOLOGY& DIALYSIS ONLY)(J1644-10) XX ONE (12:15)
[2019-11-12 18:00] VITALS: BP 130/58
[2019-11-12 21:00] VITALS: BP 132/61
[2019-11-12] MEDS: FLUoxetine 20 MG CAP PO SCH (21:56)
[2019-11-12] MEDS: ACETAMINOPHEN TAB 650MG DOSE (2X325MG) PO PRN (21:56)
[2019-11-13] MEDS: REMEDY PHYTOPLEX Z-GUARD PASTE 113GM TUBE (FROM STOREROOM PRODUCT) TOP SCH ×6 (02:00→20:56)
[2019-11-13 05:44] VITALS: BP 115/63
[2019-11-13 07:35] LABS: HEMATOCRIT 36.3 % (36.0-47.0); HEMOGLOBIN 11.3 g/dl (12.0-15.5); MEAN CORPUSCULAR HGB CONC 31.1 g/dl (32.0-36.5); MEAN CORPUSCULAR VOLUME 83.4 fl (80.0-96.0); PLATELET COUNT, AUTOMATED 727 10^3/uL (150-450); RED BLOOD COUNT 4.35 10^6/uL (4.00-5.40); WHITE BLOOD COUNT 14.1 10^3/uL (4.0-10.0)
[2019-11-13] MEDS: IPRATROPIUM 0.5MG/ALBUTEROL 2.5MG INH SOL UD 3ML (DUONEB)(J7620) NEB SCH ×4 (08:00→19:28)
[2019-11-13 08:03] LABS: CREATININE FOR GFR 3.44 MG/DL (0.55-1.30); GLOMERULAR FILTRATION RATE 13.8 (>39); POTASSIUM SERUM 3.7 MEQ/L (3.5-5.1)
[2019-11-13] MEDS: guaiFENesin 200 MG TAB PO SCH ×3 (08:18→20:56)
[2019-11-13] MEDS: HumaLOG INSULIN (NovoLOG) PER UNIT SC SCH ×4 (08:18→20:56)
[2019-11-13] MEDS: METOPROLOL SUCC (TopROL XL) 100MG *XL* TAB PO SCH (08:19)
[2019-11-13] MEDS: SIMETHICONE 80 MG CHEW TAB PO SCH ×3 (08:19→20:55)
[2019-11-13] MEDS: APIXABAN 5 MG TAB (ELIQUIS) PO SCH ×2 (08:19→20:55)
[2019-11-13] MEDS: LACTOBACILLUS ACIDOPHILUS CAP (BACID) PO SCH ×4 (08:19→20:56)
[2019-11-13] MEDS: NYSTATIN 100,000 UNITS/GM TOPICAL PWD 15 GM TOP SCH ×2 (08:20→20:56)
--- NOTE | 2019-11-13 10:11 | IPN ---
DATE: 11/12/2019 SUBJECTIVE: Cheryl is seen and examined this morning in the rehabilitation unit. She reports rehabilitation is proceeding uneventfully. She is due for dialysis this afternoon with goal fluid removal of 1 liter. Patient denies shortness of breath or leg edema. VITAL SIGNS: Temperature 97.3, pulse 60, respiratory rate 18, blood pressure 131/62, saturating 93% on room air. PHYSICAL EXAMINATION: General: Patient is seen sitting in the wheelchair awake, alert, in no apparent distress. Makes eye contact. Tongue is moist. Neck is supple. Jugular veins were not elevated. Tunneled hemodialysis catheter right chest wall with dressing. Heart sounds: S1, S2. Absolutely no edema in the legs nor in the dependent area. Lungs are clear to auscultation bilaterally. No crackle or rale. Abdomen is soft and nontender. The lower extremities are negative for edema, clubbing, cyanosis. LABS: White count 12.9, hemoglobin 10.2. Sodium 133, potassium 3.6. INPATIENT MEDICATION: Reviewed by myself. Patient was started on Aranesp with dialysis. Primary team started her on Prozac and simethicone. Remainder of medications are unchanged from prior. PROBLEMS: 1. Acute on chronic renal failure. She remains dialysis dependent. There are no signs of renal recovery. She is dialyzed today with 1 liter fluid to be removed, and she has been set up for outpatient hemodialysis as well. Her volume status and electrolytes are acceptable. 2. Anemia. Hemoglobin is at goal. Her anemia is mild. She continues on Aranesp with dialysis. 3. Systolic congestive heart failure, compensated. Left ventricular ejection fraction of 35% with grade 2 diastolic dysfunction. Volume status is well compensated and is principally regulated via three times weekly hemodialysis. As her oral intake has not been excessive, we removed 1 liter with dialysis today. Her daily weights are stable.
[2019-11-13 14:00] VITALS: BP 129/59
[2019-11-13 20:06] VITALS: BP 118/56
[2019-11-13] MEDS: FLUoxetine 20 MG CAP PO SCH (20:55)
[2019-11-13] MEDS: ACETAMINOPHEN TAB 650MG DOSE (2X325MG) PO PRN (20:56)
[2019-11-14] MEDS: REMEDY PHYTOPLEX Z-GUARD PASTE 113GM TUBE (FROM STOREROOM PRODUCT) TOP SCH ×6 (02:00→22:15)
[2019-11-14 07:05] VITALS: BP 132/61
[2019-11-14 07:39] LABS: HEMATOCRIT 34.2 % (36.0-47.0); HEMOGLOBIN 10.8 g/dl (12.0-15.5); MEAN CORPUSCULAR HEMOGLOBIN 26.2 pg (27.0-33.0); MEAN CORPUSCULAR HGB CONC 31.6 g/dl (32.0-36.5); PLATELET COUNT, AUTOMATED 737 10^3/uL (150-450); RED BLOOD COUNT 4.12 10^6/uL (4.00-5.40); WHITE BLOOD COUNT 16.2 10^3/uL (4.0-10.0)
[2019-11-14] MEDS: IPRATROPIUM 0.5MG/ALBUTEROL 2.5MG INH SOL UD 3ML (DUONEB)(J7620) NEB SCH ×4 (07:45→19:41)
[2019-11-14 08:00] LABS: CALCIUM LEVEL 8.4 MG/DL (8.8-10.2); CREATININE FOR GFR 5.07 MG/DL (0.55-1.30); GLOMERULAR FILTRATION RATE 8.8 (>39)
[2019-11-14] MEDS: SIMETHICONE 80 MG CHEW TAB PO SCH ×3 (10:04→22:14)
[2019-11-14] MEDS: guaiFENesin 200 MG TAB PO SCH ×3 (10:05→22:14)
[2019-11-14] MEDS: LACTOBACILLUS ACIDOPHILUS CAP (BACID) PO SCH ×4 (10:05→22:14)
[2019-11-14] MEDS: METOPROLOL SUCC (TopROL XL) 100MG *XL* TAB PO SCH (10:05)
[2019-11-14] MEDS: APIXABAN 5 MG TAB (ELIQUIS) PO SCH ×2 (10:06→22:14)
[2019-11-14] MEDS: HumaLOG INSULIN (NovoLOG) PER UNIT SC SCH ×4 (10:06→21:00)
[2019-11-14] MEDS: NYSTATIN 100,000 UNITS/GM TOPICAL PWD 15 GM TOP SCH ×2 (10:13→22:15)
[2019-11-14 14:00] VITALS: BP 114/53
[2019-11-14 20:00] VITALS: BP 117/51
[2019-11-14] MEDS: FLUoxetine 20 MG CAP PO SCH (22:14)
[2019-11-15] MEDS: REMEDY PHYTOPLEX Z-GUARD PASTE 113GM TUBE (FROM STOREROOM PRODUCT) TOP SCH ×6 (02:35→20:30)
[2019-11-15 06:00] VITALS: BP 170/73
[2019-11-15 07:20] LABS: HEMATOCRIT 39.5 % (36.0-47.0); HEMOGLOBIN 12.3 g/dl (12.0-15.5); MEAN CORPUSCULAR HEMOGLOBIN 26.8 pg (27.0-33.0); MEAN CORPUSCULAR HGB CONC 31.1 g/dl (32.0-36.5); MEAN CORPUSCULAR VOLUME 86.1 fl (80.0-96.0); PLATELET COUNT, AUTOMATED 653 10^3/uL (150-450); RED BLOOD COUNT 4.59 10^6/uL (4.00-5.40); WHITE BLOOD COUNT 11.5 10^3/uL (4.0-10.0)
[2019-11-15] MEDS: LACTOBACILLUS ACIDOPHILUS CAP (BACID) PO SCH ×4 (07:30→20:29)
[2019-11-15] MEDS: IPRATROPIUM 0.5MG/ALBUTEROL 2.5MG INH SOL UD 3ML (DUONEB)(J7620) NEB SCH ×4 (07:48→19:34)
[2019-11-15 07:58] LABS: CALCIUM LEVEL 8.7 MG/DL (8.8-10.2); CREATININE FOR GFR 6.16 MG/DL (0.55-1.30); POTASSIUM SERUM 4.8 MEQ/L (3.5-5.1)
[2019-11-15] MEDS: NYSTATIN 100,000 UNITS/GM TOPICAL PWD 15 GM TOP SCH ×2 (10:30→20:30)
[2019-11-15] MEDS: SIMETHICONE 80 MG CHEW TAB PO SCH ×3 (10:31→20:29)
[2019-11-15] MEDS: HumaLOG INSULIN (NovoLOG) PER UNIT SC SCH ×4 (10:31→20:29)
[2019-11-15] MEDS: APIXABAN 5 MG TAB (ELIQUIS) PO SCH ×2 (10:32→20:29)
[2019-11-15] MEDS: guaiFENesin 200 MG TAB PO SCH ×3 (10:32→20:28)
[2019-11-15] MEDS: METOPROLOL SUCC (TopROL XL) 100MG *XL* TAB PO SCH (10:32)
[2019-11-15] MEDS ORDERED: HEPARIN 1,000 UNITS/ML 10ML VIAL (FOR RADIOLOGY& DIALYSIS ONLY)(J1644-10) IV ONE (12:00)
[2019-11-15] MEDS ORDERED: HEPARIN 1,000 UNITS/ML 10ML VIAL (FOR RADIOLOGY& DIALYSIS ONLY)(J1644-10) XX ONE (12:00)
--- NOTE | 2019-11-15 18:04 | IPN ---
DATE: 11/15/2019 Mrs. More is seen this morning on her bedside. She is working with the occupational therapist at present. She is sitting on the chair and feels much better compared to last week. She is able to walk 50 feet now. The patient denies any dyspnea, chest pain, nausea, vomiting, fever or chills. PHYSICAL EXAMINATION: Temperature 96.7 degrees Fahrenheit, heart rate 72 per minute and respiratory rate 18 per minute. Blood pressure 165/70 mmHg and oxygen saturation 95% on room air. Head is atraumatic. Neck supple and JVD not elevated. Dialysis catheter is present in right upper chest. Heart sounds are regular and lungs clear to auscultation. Abdomen soft and nontender and bowel sounds normal. Extremities without any cyanosis or clubbing. Neurologically she is awake, alert and grossly intact. Today's labs show WBC count down to 11.5, hemoglobin 12.3 and hematocrit 39.5. Platelets 653. Sodium 134, potassium 4.8, CO2 19, BUN 52 and creatinine 6.16. Calcium level is 8.7. PROBLEMS: 1. End-stage renal disease. The patient has minimal urine output and has been dialysis dependent. I feel that for all practical purposes she has end-stage renal disease with minimal chance of recovery of renal function. She is currently dialysis dependent and will be dialyzed this afternoon. 2. Anemia. Her anemia is improved and stable. I will hold off on Aranesp dose for now. 3. Hypertension. Blood pressure is well-controlled and we will continue to monitor closely. No changes are being made today. 4. Generalized weakness and deconditioning. The patient is making progress with acute rehabilitation. She has certainly improved significantly over the last 1 week.
[2019-11-15 20:26] VITALS: BP 121/60
[2019-11-15] MEDS: FLUoxetine 20 MG CAP PO SCH (20:29)
[2019-11-16] MEDS: REMEDY PHYTOPLEX Z-GUARD PASTE 113GM TUBE (FROM STOREROOM PRODUCT) TOP SCH ×6 (02:08→20:15)
[2019-11-16 06:00] VITALS: BP 110/62
[2019-11-16] MEDS: HumaLOG INSULIN (NovoLOG) PER UNIT SC SCH ×4 (07:00→20:14)
[2019-11-16] MEDS: LACTOBACILLUS ACIDOPHILUS CAP (BACID) PO SCH ×4 (07:30→20:14)
[2019-11-16] MEDS: IPRATROPIUM 0.5MG/ALBUTEROL 2.5MG INH SOL UD 3ML (DUONEB)(J7620) NEB SCH ×4 (07:32→19:30)
[2019-11-16 07:40] LABS: HEMATOCRIT 35.1 % (36.0-47.0); HEMOGLOBIN 11.3 g/dl (12.0-15.5); MEAN CORPUSCULAR HEMOGLOBIN 26.6 pg (27.0-33.0); MEAN CORPUSCULAR HGB CONC 32.2 g/dl (32.0-36.5); MEAN CORPUSCULAR VOLUME 82.6 fl (80.0-96.0); PLATELET COUNT, AUTOMATED 678 10^3/uL (150-450); RED BLOOD COUNT 4.25 10^6/uL (4.00-5.40); WHITE BLOOD COUNT 13.3 10^3/uL (4.0-10.0)
[2019-11-16 08:08] LABS: CALCIUM LEVEL 8.3 MG/DL (8.8-10.2); CREATININE FOR GFR 3.43 MG/DL (0.55-1.30); GLOMERULAR FILTRATION RATE 13.8 (>39); POTASSIUM SERUM 4.1 MEQ/L (3.5-5.1)
[2019-11-16] MEDS: APIXABAN 5 MG TAB (ELIQUIS) PO SCH ×2 (09:20→20:14)
[2019-11-16] MEDS: SIMETHICONE 80 MG CHEW TAB PO SCH ×3 (09:21→20:14)
[2019-11-16] MEDS: guaiFENesin 200 MG TAB PO SCH ×3 (09:21→20:14)
[2019-11-16] MEDS: METOPROLOL SUCC (TopROL XL) 100MG *XL* TAB PO SCH (09:23)
[2019-11-16] MEDS: NYSTATIN 100,000 UNITS/GM TOPICAL PWD 15 GM TOP SCH ×2 (09:23→20:15)
[2019-11-16 14:00] VITALS: BP 146/67
--- NOTE | 2019-11-16 15:02 | IPNPDOC ---
PM&R Progress Note DATE OF SERVICE: Nov 15, 2019 [employer] Elint Operator Progress Note Subjective: Patient reporting her abdominal cramping is a little better with the Simethicone. REVIEW OF SYSTEMS: The following is a completed review of systems and has been reviewed. Review of systems otherwise unremarkable. PAIN: Patient self reports no pain EYES: No recent vision changes EARS, NOSE, & THROAT: No throat pain, or dysphagia, or rhinorrhea CARDIOVASCULAR: Denies chest pain or palpitations PULMONARY: Denies shortness of breath GASTROINTESTINAL: +incontinence GENITOURINARY: denies dysuria MUSCULOSKELETAL: generalized weakness NEUROLOGICAL:+confused HEMATOLOGICAL: denies easy bruising SKIN: sacral wound, left inner thigh rash, sternal incision PSYCHIATRIC: Unremarkable All other review of systems found to be negative. PHYSICAL EXAMINATION: VITAL SIGNS: Please see below. GENERAL: Pleasant and cooperative. No acute distress. HEENT: PERRL. Extraocular movements intact. Clear conjunctiva CARDIOVASCULAR: Regular rate and rhythm. No murmurs, rubs, or gallops LUNGS: decreased breath sounds bilat, No wheezes. No rhonchi ABDOMEN: Soft, nontender, nondistended. Positive bowel sounds. Normal active bowel sounds NEUROLOGICAL: Alert and oriented to self and place, Cranial nerves II through XII grossly intact. Sensation grossly intact EXTREMITIES: 4\5 strength bilateral upper extremities. 4\5 strength right lower extremity. 4/5 strength in left lower extremity. SKIN: sacral fold stage 2 ulcer, +external hemorrhoids, left inner thigh with dried vesicular lesions, sternal incision c/d/i ASSESSMENT:78-year-old F with past medical history of HTN, CKD who presents status post complicated and prolonged hospital course for sepsis, acute respiratory failure, encephalopathy PLAN: 1. Rehab- PT/OT advance gait and ADL training, pacemaker and sternal precautions- strengthen/stretch/maintain ROM all 4 limbs- teach energy conservation -LICENSED REACTOR OPERATOR for cog 2. Neuro: patient presenting with persistent encephalopathy likely due to infection, metabolic derangement, and recent episodes of asystole possibly causing hypoxic injury -will avoid deliriogenics, c/u to treat infectious source -will start low dose antidepressant as well to help with overall function 3. 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 Resp: s/p Zosyn for aspiration pneumonia -Duonebs and guaifenesin 5. Renal: patient with recent initiation of dialysis, renal consulted to assist in management 6. GI: c/u protonix for ppx -c/u simethicone standing to help with abdominal cramping, bowel meds are on hold due to frequent stooling -immodium ordered prn loose stools 7. DVT ppx: on eliquis for Afib, also noted to have right UE basilica vein thrombus on 10-16-19 8. Skin: frequent rubén-care for fecal incontinence and barrier cream, Tucks added for relief 9. Pain: Tylenol prn 10. Leukocytosis: patient without fever or chills, blood cx ordered 10. Dispo: TBD Allergies Coded Allergies: No Known Allergies (Unverified , 10/15/18) Vital Signs Vital Signs Date Time Temp Pulse Resp B/P (MAP) Pulse Ox O2 Delivery O2 Flow Rate FiO2 11/16/19 14:00 97.1 61 18 146/67 (93) 96 Room Air Laboratory Data CBC/BMP Laboratory Tests 11/16/19 07:32 Labs 24H Laboratory Tests 2 11/15/19 17:02: Bedside Glucose (Misc Panel) 106 11/15/19 20:28: Bedside Glucose (Misc Panel) 134H 11/16/19 06:24: Bedside Glucose (Misc Panel) 125H 11/16/19 07:32: Nucleated Red Blood Cells % (auto) 0.0, Anion Gap 9, Glomerular Filtration Rate 13.8L, Calcium Level 8.3L 11/16/19 11:54: Bedside Glucose (Misc Panel) 154H Microbiology Microbiology 11/15/19 Blood Culture - Preliminary, Resulted No growth after 24 hours . All specim... 11/14/19 Blood Culture - Preliminary, Resulted No growth after 24 hours . All specim... Current Medications Current Medications Current Medications Medications (Trade) Dose Ordered Sig/Renetta Route PRN Reason Start Time Stop Time Status Last Admin Dose Admin Acetaminophen (Tylenol Tab) 650 mg Q4HP PRN PO fever/MILD PAIN (PS 1-4) 11/09/19 15:30 11/13/19 20:56 Albuterol/ Ipratropium (Duoneb (Ipr 0.5mg/Alb 2.5mg)) 3 ml RQID NEB 11/09/19 16:00 11/16/19 07:32 Apixaban (Eliquis) 5 mg BID PO 11/09/19 21:00 11/16/19 09:20 Darbepoetin Francisco (Aranesp (Dialysis Use)) 100 mcg HD IV 11/10/19 13:00 11/15/19 12:35 DC Dextrose (Dextrose 50%) 25 ml ASDIRECTED PRN IV SEE LABEL COMMENTS 11/09/19 15:30 Fluoxetine HCl (PROzac) 20 mg QHS PO 11/11/19 21:00 11/15/19 20:29 Glucagon (Glucagon) 1 mg ASDIRECTED PRN SC SEE LABEL COMMENTS 11/09/19 15:30 Glucose (Glucose) 16 GM ASDIRECTED PRN PO SEE LABEL COMMENTS 11/09/19 15:30 Guaifenesin (Robitussin Tab) 400 mg TID PO 11/10/19 16:00 11/16/19 09:21 Insulin Human Lispro (HumaLOG INSULIN) SEE PROTOCOL TABLE AC SC 11/09/19 17:30 11/16/19 09:20 Insulin Human Lispro (HumaLOG INSULIN) SEE PROTOCOL TABLE QHS SC 11/09/19 21:00 Lactobacillus Acidophilus (Bacid) 1 ea ACHS PO 11/09/19 17:30 11/16/19 13:29 Lactobacillus Acidophilus (Bacid) 1 ea WM PO 11/09/19 18:00 UNV Lidocaine (Lidoderm Patch) 1 patch DAILY TD 11/10/19 09:00 11/09/19 16:19 DC Loperamide HCl (Imodium) 2 mg ASDIRECTED PRN PO DIARRHEA 11/09/19 15:30 Metoprolol Succinate (TopROL XL) 100 mg DAILY PO 11/10/19 09:00 11/16/19 09:23 Non-Formulary Medication ( See Comment Field Below ) REMOVE LIDODERM PATCH DAILY@21 XX 11/09/19 21:00 11/09/19 16:19 DC Nystatin (Mycostatin Powder, Nystop) apply to groin BID TOP 11/09/19 21:00 11/16/19 09:23 Ondansetron HCl (Zofran) 4 mg Q6HP PRN PO NAUSEA 11/09/19 15:30 Piperacillin Sod/ Tazobactam Sod 2.25 gm/Dextrose 50 ml @ 100 mls/hr Q8H IV 11/09/19 17:00 11/10/19 17:29 DC 11/10/19 18:15 Simethicone (Mylicon) 80 mg QIDP PRN PO BLOATING 11/09/19 15:30 11/11/19 16:36 DC Simethicone (Mylicon) 80 mg TID PO 11/11/19 16:00 11/16/19 09:21 CLARK AHUJA MD Nov 16, 2019 15:01
--- NOTE | 2019-11-16 15:03 | IPNPDOC ---
PM&R Progress Note DATE OF SERVICE: Nov 16, 2019 Quality Control Representative Progress Note Subjective: Patient seen in therapy on the [facility] and was told her urine and stool would be checked. REVIEW OF SYSTEMS: The following is a completed review of systems and has been reviewed. Review of systems otherwise unremarkable. PAIN: Patient self reports no pain EYES: No recent vision changes EARS, NOSE, & THROAT: No throat pain, or dysphagia, or rhinorrhea CARDIOVASCULAR: Denies chest pain or palpitations PULMONARY: Denies shortness of breath GASTROINTESTINAL: +incontinence GENITOURINARY: denies dysuria MUSCULOSKELETAL: generalized weakness NEUROLOGICAL:+confused HEMATOLOGICAL: denies easy bruising SKIN: sacral wound, left inner thigh rash, sternal incision PSYCHIATRIC: Unremarkable All other review of systems found to be negative. PHYSICAL EXAMINATION: VITAL SIGNS: Please see below. GENERAL: Pleasant and cooperative. No acute distress. HEENT: PERRL. Extraocular movements intact. Clear conjunctiva CARDIOVASCULAR: Regular rate and rhythm. No murmurs, rubs, or gallops LUNGS: decreased breath sounds bilat, No wheezes. No rhonchi ABDOMEN: Soft, nontender, nondistended. Positive bowel sounds. Normal active bowel sounds NEUROLOGICAL: Alert and oriented to self and place, Cranial nerves II through XII grossly intact. Sensation grossly intact EXTREMITIES: 4\5 strength bilateral upper extremities. 4\5 strength right lower extremity. 4/5 strength in left lower extremity. SKIN: sacral fold stage 2 ulcer, +external hemorrhoids, left inner thigh with dried vesicular lesions, sternal incision c/d/i ASSESSMENT:78-year-old F with past medical history of HTN, CKD who presents status post complicated and prolonged hospital course for sepsis, acute respiratory failure, encephalopathy PLAN: 1. Rehab- PT/OT advance gait and ADL training, pacemaker and sternal precautions- strengthen/stretch/maintain ROM all 4 limbs- teach energy conserv ation -CUT OUT STITCHER for cog 2. Neuro: patient presenting with persistent encephalopathy likely due to infec tion, metabolic derangement, and recent episodes of asystole possibly causing hypoxic injury -will avoid deliriogenics, c/u to treat infectious source -will start low dose antidepressant as well to help with overall function 3. 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 Resp: s/p Zosyn for aspiration pneumonia -Duonebs and guaifenesin 5. Renal: patient with recent initiation of dialysis, renal consulted to assist in management 6. GI: c/u protonix for ppx -c/u simethicone standing to help with abdominal cramping, bowel meds are on hold due to frequent stooling -immodium ordered prn loose stools -C diff ordered 7. DVT ppx: on eliquis for Afib, also noted to have right UE basilica vein thrombus on 10-16-19 8. Skin: frequent rubén-care for fecal incontinence and barrier cream, Tucks added for relief 9. Pain: Tylenol prn 10. Leukocytosis: patient without fever or chills, blood cx ordered so far negative, will order UA and C diff 10. Dispo: TBD Allergies Coded Allergies: No Known Allergies (Unverified , 10/15/18) Vital Signs Vital Signs Date Time Temp Pulse Resp B/P (MAP) Pulse Ox O2 Delivery O2 Flow Rate FiO2 11/16/19 14:00 97.1 61 18 146/67 (93) 96 Room Air Laboratory Data CBC/BMP Laboratory Tests 11/16/19 07:32 Labs 24H Laboratory Tests 2 11/15/19 17:02: Bedside Glucose (Misc Panel) 106 11/15/19 20:28: Bedside Glucose (Misc Panel) 134H 11/16/19 06:24: Bedside Glucose (Misc Panel) 125H 11/16/19 07:32: Nucleated Red Blood Cells % (auto) 0.0, Anion Gap 9, Glomerular Filtration Rate 13.8L, Calcium Level 8.3L 11/16/19 11:54: Bedside Glucose (Misc Panel) 154H Microbiology Microbiology 11/15/19 Blood Culture - Preliminary, Resulted No growth after 24 hours . All specim... 11/14/19 Blood Culture - Preliminary, Resulted No growth after 24 hours . All specim... Current Medications Current Medications Current Medications Medications (Trade) Dose Ordered Sig/Renetta Route PRN Reason Start Time Stop Time Status Last Admin Dose Admin Acetaminophen (Tylenol Tab) 650 mg Q4HP PRN PO fever/MILD PAIN (PS 1-4) 11/09/19 15:30 11/13/19 20:56 Albuterol/ Ipratropium (Duoneb (Ipr 0.5mg/Alb 2.5mg)) 3 ml RQID NEB 11/09/19 16:00 11/16/19 07:32 Apixaban (Eliquis) 5 mg BID PO 11/09/19 21:00 11/16/19 09:20 Darbepoetin Francisco (Aranesp (Dialysis Use)) 100 mcg HD IV 11/10/19 13:00 11/15/19 12:35 DC Dextrose (Dextrose 50%) 25 ml ASDIRECTED PRN IV SEE LABEL COMMENTS 11/09/19 15:30 Fluoxetine HCl (PROzac) 20 mg QHS PO 11/11/19 21:00 11/15/19 20:29 Glucagon (Glucagon) 1 mg ASDIRECTED PRN SC SEE LABEL COMMENTS 11/09/19 15:30 Glucose (Glucose) 16 GM ASDIRECTED PRN PO SEE LABEL COMMENTS 11/09/19 15:30 Guaifenesin (Robitussin Tab) 400 mg TID PO 11/10/19 16:00 11/16/19 09:21 Insulin Human Lispro (HumaLOG INSULIN) SEE PROTOCOL TABLE AC SC 11/09/19 17:30 11/16/19 09:20 Insulin Human Lispro (HumaLOG INSULIN) SEE PROTOCOL TABLE QHS SC 11/09/19 21:00 Lactobacillus Acidophilus (Bacid) 1 ea ACHS PO 11/09/19 17:30 11/16/19 13:29 Lactobacillus Acidophilus (Bacid) 1 ea WM PO 11/09/19 18:00 UNV Lidocaine (Lidoderm Patch) 1 patch DAILY TD 11/10/19 09:00 11/09/19 16:19 DC Loperamide HCl (Imodium) 2 mg ASDIRECTED PRN PO DIARRHEA 11/09/19 15:30 Metoprolol Succinate (TopROL XL) 100 mg DAILY PO 11/10/19 09:00 11/16/19 09:23 Non-Formulary Medication ( See Comment Field Below ) REMOVE LIDODERM PATCH DAILY@21 XX 11/09/19 21:00 11/09/19 16:19 DC Nystatin (Mycostatin Powder, Nystop) apply to groin BID TOP 11/09/19 21:00 11/16/19 09:23 Ondansetron HCl (Zofran) 4 mg Q6HP PRN PO NAUSEA 11/09/19 15:30 Piperacillin Sod/ Tazobactam Sod 2.25 gm/Dextrose 50 ml @ 100 mls/hr Q8H IV 11/09/19 17:00 11/10/19 17:29 DC 11/10/19 18:15 Simethicone (Mylicon) 80 mg QIDP PRN PO BLOATING 11/09/19 15:30 11/11/19 16:36 DC Simethicone (Mylicon) 80 mg TID PO 11/11/19 16:00 11/16/19 09:21 CLARK AHUJA MD Nov 16, 2019 15:03
[2019-11-16 20:00] VITALS: BP 144/66
[2019-11-16] MEDS: ACETAMINOPHEN TAB 650MG DOSE (2X325MG) PO PRN (20:14)
[2019-11-16] MEDS: FLUoxetine 20 MG CAP PO SCH (20:14)
[2019-11-17] MEDS: REMEDY PHYTOPLEX Z-GUARD PASTE 113GM TUBE (FROM STOREROOM PRODUCT) TOP SCH ×6 (02:00→22:11)
[2019-11-17 06:00] VITALS: BP 142/62
[2019-11-17] MEDS: LACTOBACILLUS ACIDOPHILUS CAP (BACID) PO SCH ×4 (09:12→22:10)
[2019-11-17] MEDS: SIMETHICONE 80 MG CHEW TAB PO SCH ×3 (09:12→22:10)
[2019-11-17] MEDS: APIXABAN 5 MG TAB (ELIQUIS) PO SCH ×2 (09:12→22:10)
[2019-11-17] MEDS: guaiFENesin 200 MG TAB PO SCH ×3 (09:12→22:10)
[2019-11-17] MEDS: METOPROLOL SUCC (TopROL XL) 100MG *XL* TAB PO SCH (09:12)
[2019-11-17] MEDS: HumaLOG INSULIN (NovoLOG) PER UNIT SC SCH ×4 (09:13→22:10)
[2019-11-17] MEDS: NYSTATIN 100,000 UNITS/GM TOPICAL PWD 15 GM TOP SCH ×2 (09:13→22:11)
[2019-11-17] MEDS: IPRATROPIUM 0.5MG/ALBUTEROL 2.5MG INH SOL UD 3ML (DUONEB)(J7620) NEB SCH ×3 (09:37→17:07)
[2019-11-17] MEDS ORDERED: HEPARIN 1,000 UNITS/ML 10ML VIAL (FOR RADIOLOGY& DIALYSIS ONLY)(J1644-10) IV ONE (11:00)
[2019-11-17] MEDS ORDERED: HEPARIN 1,000 UNITS/ML 10ML VIAL (FOR RADIOLOGY& DIALYSIS ONLY)(J1644-10) XX ONE (11:00)
--- NOTE | 2019-11-17 12:37 | IPN ---
DATE OF VISIT: 11/17/2019 Mrs. More is seen this morning on her bedside. She is sitting in the chair at the time of my visit. She reports feeling well and denies any dyspnea, chest pain, nausea or vomiting. She reports improved appetite and has been eating well. On physical exam, temperature 96.5 degrees Fahrenheit, heart rate 60 per minute and respiratory rate 18 per minute. Blood pressure 142/62 mmHg and oxygen saturation 94% on room air. Head is atraumatic. Neck supple and without jugular venous distention (JVD) or thyroid enlargement. Heart sounds are regular and lungs with slightly diminished breath sounds at bases. Abdomen soft and nontender. Bowel sounds normal. Extremities without any cyanosis or clubbing. Neurologically, she is awake, alert and oriented times three. She did not have any new labs done today. Yesterday, her white cell count was 13.3, hemoglobin 11.3 and hematocrit 35. Sodium was 132 and potassium 4.1 yesterday. BUN was 20 and creatinine 3.43. PROBLEMS: 1. Acute on chronic renal failure. Patient remains dialysis dependent and she will be dialyzed again today. She does have some urine output. However, it is not being recorded at present. We will check her renal profile prior to dialysis today. 2. Anemia. Her anemia is stable at present and we will continue to manage it with weekly dose of Aranesp during dialysis. At present, she is not receiving Aranesp as her hemoglobin has been above 11. 3. Generalized weakness and deconditioning. Patient continues with acute rehab and making progress. 4. Dialysis access. She currently has a PermaCath and we will try to get an arteriovenous (AV) fistula in near future.
--- NOTE | 2019-11-17 16:05 | IPNPDOC ---
PM&R Progress Note DATE OF SERVICE: Nov 17, 2019 [employer] Repairer Progress Note Subjective: Patient seen in dialysis stating she feels cold, but denies feeling dizzy. She reports she feels she is getting stronger. REVIEW OF SYSTEMS: The following is a completed review of systems and has been reviewed. Review of systems otherwise unremarkable. PAIN: Patient self reports no pain EYES: No recent vision changes EARS, NOSE, & THROAT: No throat pain, or dysphagia, or rhinorrhea CARDIOVASCULAR: Denies chest pain or palpitations PULMONARY: Denies shortness of breath GASTROINTESTINAL: +incontinence GENITOURINARY: denies dysuria MUSCULOSKELETAL: generalized weakness NEUROLOGICAL:+confused HEMATOLOGICAL: denies easy bruising SKIN: sacral wound, left inner thigh rash, sternal incision PSYCHIATRIC: Unremarkable All other review of systems found to be negative. PHYSICAL EXAMINATION: VITAL SIGNS: Please see below. GENERAL: Pleasant and cooperative. No acute distress. HEENT: PERRL. Extraocular movements intact. Clear conjunctiva CARDIOVASCULAR: Regular rate and rhythm. No murmurs, rubs, or gallops LUNGS: decreased breath sounds bilat, No wheezes. No rhonchi ABDOMEN: Soft, nontender, nondistended. Positive bowel sounds. Normal active bowel sounds NEUROLOGICAL: Alert and oriented to self and place, Cranial nerves II through XII grossly intact. Sensation grossly intact EXTREMITIES: 4\5 strength bilateral upper extremities. 4\5 strength right lower extremity. 4/5 strength in left lower extremity. SKIN: sacral fold stage 2 ulcer, +external hemorrhoids, left inner thigh with dried vesicular lesions, sternal incision c/d/i ASSESSMENT:78-year-old F with past medical history of HTN, CKD who presents status post complicated and prolonged hospital course for sepsis, acute respiratory failure, encephalopathy PLAN: 1. Rehab- PT/OT advance gait and ADL training, pacemaker and sternal precautions- strengthen/stretch/maintain ROM all 4 limbs- teach energy conservation -NEON SIGN WORKER for cog 2. Neuro: patient presenting with persistent encephalopathy likely due to infection, metabolic derangement, and recent episodes of asystole possibly causing hypoxic injury -will avoid deliriogenics -c/u low dose antidepressant as well to help with overall function 3. 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 Resp: s/p Zosyn for aspiration pneumonia -Duonebs and guaifenesin 5. Renal: patient with recent initiation of dialysis, renal consulted to assist in management-recs appreciated 6. GI: c/u protonix for ppx -c/u simethicone standing to help with abdominal cramping, bowel meds are on hold due to frequent stooling-gradually improving -immodium ordered prn loose stools 7. DVT ppx: on eliquis for Afib, also noted to have right UE basilica vein thrombus on 10-16-19 8. Skin: frequent rubén-care for fecal incontinence and barrier cream, Tucks added for relief 9. Pain: Tylenol prn 10. Leukocytosis: patient without fever or chills, blood cx ordered so far negative, holding off on C diff as patient with soft, not loose stools patient denies dysuria, will hold off on UA 10. Dispo: TBD Allergies Coded Allergies: No Known Allergies (Unverified , 10/15/18) Vital Signs Vital Signs Date Time Temp Pulse Resp B/P (MAP) Pulse Ox O2 Delivery O2 Flow Rate FiO2 11/17/19 09:12 60 142/62 11/17/19 06:00 96.5 18 94 Room Air Laboratory Data Labs 24H Laboratory Tests 2 11/16/19 16:55: Bedside Glucose (Misc Panel) 171H 11/16/19 19:59: Bedside Glucose (Misc Panel) 165H 11/17/19 05:02: Bedside Glucose (Misc Panel) 144H 11/17/19 12:01: Bedside Glucose (Misc Panel) 108 Microbiology Microbiology 11/15/19 Blood Culture - Preliminary, Resulted No Growth after 48 hours. All Specime... 11/14/19 Blood Culture - Preliminary, Resulted No Growth after 48 hours. All Specime... Current Medications Current Medications Current Medications Medications (Trade) Dose Ordered Sig/Renetta Route PRN Reason Start Time Stop Time Status Last Admin Dose Admin Acetaminophen (Tylenol Tab) 650 mg Q4HP PRN PO fever/MILD PAIN (PS 1-4) 11/09/19 15:30 11/16/19 20:14 Albuterol/ Ipratropium (Duoneb (Ipr 0.5mg/Alb 2.5mg)) 3 ml RQID NEB 11/09/19 16:00 11/17/19 11:57 Apixaban (Eliquis) 5 mg BID PO 11/09/19 21:00 11/17/19 09:12 Darbepoetin Francisco (Aranesp (Dialysis Use)) 100 mcg HD IV 11/10/19 13:00 11/15/19 12:35 DC Dextrose (Dextrose 50%) 25 ml ASDIRECTED PRN IV SEE LABEL COMMENTS 11/09/19 15:30 Fluoxetine HCl (PROzac) 20 mg QHS PO 11/11/19 21:00 11/16/19 20:14 Glucagon (Glucagon) 1 mg ASDIRECTED PRN SC SEE LABEL COMMENTS 11/09/19 15:30 Glucose (Glucose) 16 GM ASDIRECTED PRN PO SEE LABEL COMMENTS 11/09/19 15:30 Guaifenesin (Robitussin Tab) 400 mg TID PO 11/10/19 16:00 11/17/19 09:12 Insulin Human Lispro (HumaLOG INSULIN) SEE PROTOCOL TABLE AC SC 11/09/19 17:30 11/17/19 12:46 Insulin Human Lispro (HumaLOG INSULIN) SEE PROTOCOL TABLE QHS SC 11/09/19 21:00 Lactobacillus Acidophilus (Bacid) 1 ea ACHS PO 11/09/19 17:30 11/17/19 12:45 Lactobacillus Acidophilus (Bacid) 1 ea WM PO 11/09/19 18:00 UNV Lidocaine (Lidoderm Patch) 1 patch DAILY TD 11/10/19 09:00 11/09/19 16:19 DC Loperamide HCl (Imodium) 2 mg ASDIRECTED PRN PO DIARRHEA 11/09/19 15:30 Metoprolol Succinate (TopROL XL) 100 mg DAILY PO 11/10/19 09:00 11/17/19 09:12 Non-Formulary Medication ( See Comment Field Below ) REMOVE LIDODERM PATCH DAILY@21 XX 11/09/19 21:00 11/09/19 16:19 DC Nystatin (Mycostatin Powder, Nystop) apply to groin BID TOP 11/09/19 21:00 11/17/19 09:13 Ondansetron HCl (Zofran) 4 mg Q6HP PRN PO NAUSEA 3/10/20 15:30 Piperacillin Sod/ Tazobactam Sod 2.25 gm/Dextrose 50 ml @ 100 mls/hr Q8H IV 11/09/19 17:00 11/10/19 17:29 DC 11/10/19 18:15 Simethicone (Mylicon) 80 mg QIDP PRN PO BLOATING 11/09/19 15:30 11/11/19 16:36 DC Simethicone (Mylicon) 80 mg TID PO 11/11/19 16:00 11/17/19 09:12 CLARK AHUJA MD Nov 17, 2019 16:05
[2019-11-17 21:11] VITALS: BP 106/49
[2019-11-17] MEDS: FLUoxetine 20 MG CAP PO SCH (22:10)
[2019-11-18] MEDS: REMEDY PHYTOPLEX Z-GUARD PASTE 113GM TUBE (FROM STOREROOM PRODUCT) TOP SCH ×6 (02:26→21:20)
[2019-11-18 05:55] VITALS: BP 150/65
[2019-11-18] MEDS: LACTOBACILLUS ACIDOPHILUS CAP (BACID) PO SCH ×4 (07:30→21:20)
[2019-11-18] MEDS: NYSTATIN 100,000 UNITS/GM TOPICAL PWD 15 GM TOP SCH ×2 (07:44→21:20)
[2019-11-18] MEDS: IPRATROPIUM 0.5MG/ALBUTEROL 2.5MG INH SOL UD 3ML (DUONEB)(J7620) NEB SCH ×4 (07:52→19:19)
[2019-11-18] MEDS: APIXABAN 5 MG TAB (ELIQUIS) PO SCH ×2 (09:23→21:19)
[2019-11-18] MEDS: SIMETHICONE 80 MG CHEW TAB PO SCH ×3 (09:23→21:19)
[2019-11-18] MEDS: HumaLOG INSULIN (NovoLOG) PER UNIT SC SCH ×4 (09:23→21:00)
[2019-11-18] MEDS: METOPROLOL SUCC (TopROL XL) 100MG *XL* TAB PO SCH (09:24)
[2019-11-18] MEDS: guaiFENesin 200 MG TAB PO SCH ×3 (09:24→21:20)
[2019-11-18 14:22] VITALS: BP 128/58
[2019-11-18 21:18] VITALS: BP 133/61
[2019-11-18] MEDS: FLUoxetine 20 MG CAP PO SCH (21:19)
[2019-11-19] MEDS: REMEDY PHYTOPLEX Z-GUARD PASTE 113GM TUBE (FROM STOREROOM PRODUCT) TOP SCH ×6 (01:44→20:53)
[2019-11-19 06:00] VITALS: BP 146/65
[2019-11-19] MEDS: IPRATROPIUM 0.5MG/ALBUTEROL 2.5MG INH SOL UD 3ML (DUONEB)(J7620) NEB SCH ×4 (07:42→20:11)
[2019-11-19] MEDS: guaiFENesin 200 MG TAB PO SCH ×3 (09:04→20:52)
[2019-11-19] MEDS: METOPROLOL SUCC (TopROL XL) 100MG *XL* TAB PO SCH (09:04)
[2019-11-19] MEDS: APIXABAN 5 MG TAB (ELIQUIS) PO SCH ×2 (09:04→20:52)
[2019-11-19] MEDS: HumaLOG INSULIN (NovoLOG) PER UNIT SC SCH ×4 (09:04→20:51)
[2019-11-19] MEDS: SIMETHICONE 80 MG CHEW TAB PO SCH ×3 (09:04→20:52)
[2019-11-19] MEDS: LACTOBACILLUS ACIDOPHILUS CAP (BACID) PO SCH ×4 (09:04→20:52)
[2019-11-19] MEDS: NYSTATIN 100,000 UNITS/GM TOPICAL PWD 15 GM TOP SCH ×2 (09:05→20:53)
--- NOTE | 2019-11-19 11:56 | IPNPDOC ---
Text Note Date of Service The patient was seen on 11/19/19. NOTE History of Present Illness Patient is seen lying in bed this morning, she will be going to therapy shortly. This morning she reports that she has gas pains in her stomach. It started this morning, there is no nausea, vomiting, diarrhea or constipation, it is a 4 out of 10 at its worst, diffuse, eased with passing flatus. Per her therapist, pt had a little bit of abdominal discomfort yesterday. However, she had a bowel movement which provided relief. Review of Systems Constitutional: Reports: Weakness, Fatigue; Denies: Chills, Fever, Night Sweats Eyes: Denies: Pain ENT: Denies: Head Aches Skin: Denies: Rash Pulmonary: Denies: Dyspnea, Cough Cardiovascular: Denies: Chest Pain, Palpitations, Orthopnea, Paroxysmal Noc. Dyspnea, Edema, Lt Headedness Gastrointestinal: Reports: Abdominal pain (see HPI) Denies: Nausea, Vomiting, Diarrhea, Constipation Genitourinary: Denies: Dysuria Hematologic: Denies: Bruising Musculoskeletal: Denies: Neck Pain, Back Pain, Joint Pain, Muscle Pain, Spasms Neurological: Denies: Weakness, Numbness, Change in speech, Confusion Physical Examination General Exam: Positive: No Acute Distress Eye Exam: Positive: PERRLA, Conjunctiva & lids normal; Negative: Sclera icteric ENT Exam: Positive: Atraumatic, Mucous membr. moist/pink, Pharynx Normal Neck Exam: Positive: Supple; Negative: thyromegaly Chest Exam: Positive: Clear to auscultation, Normal air movement Heart Exam: Positive: Rate Normal, Regular Rhythm, Other (distant heart sounds); Negative: Rubs Telemetry: Positive: No significant arrhythmia Abdomen Exam: Positive: Hyperechoic bowel sounds, Soft; Negative: Tenderness Extremity Exam: Positive: Normal pulses (palpable pulses bilateral LEs); Negative: Clubbing, Cyanosis, Edema Skin Exam: Positive: Nl turgor and temperature Neuro Exam: Positive: Normal Speech Psych Exam: Positive: Mood NL Assessment/Plan Ms. More is a 78-year-old female who was transferred to the acute rehabilitation following an extended hospitalization due to decompensated heart failure, pericardial effusion status post pericardial window complicated by cardiac arrest resulting in permanent pacemaker placement, aspiration pneumonia, A. fib with RVR. She further developed oliguric renal failure on CKD stage III requiring continued dialysis. Patient was assessed by acute rehabilitation and found to be below her baseline, discharged to the ARU on 11/08. #1. General deconditioning. Management per physiatry #2 . Acute on chronic kidney failure. Now HD dependent. Management per nephrology. #3. Pneumonia. - Treated to completion with Zosyn. Currently asymptomatic, procalcitonin WNL; elevated white count likely 2/2 to inflammation #4. Anemia of chronic disease. Continued management per nephrology; Currently on Aranesp No indication for acute intervention #5. Protein malnutrition. Secondary to prolonged illness and poor by mouth intake. Nepro added per nephrology. Continue to encourage increased protein intake #6 Hypertension/recent cardiac arrest. Continue cardioprotective medications Plan / VTE VTE Prophylaxis Ordered?: Yes (chronic Eliquis) VS,Fishbone, I+O VS, Fishbone, I+O Vital Signs Date Time Temp Pulse Resp B/P (MAP) Pulse Ox O2 Delivery O2 Flow Rate FiO2 11/19/19 09:04 58 146/65 11/19/19 06:00 98.3 18 93 Room Air I&O- Last 24 Hours up to 6 AM 11/19/19 06:00 Intake Total 1760 ml Output Total 0 ml Balance 1760 ml BRINA MCKEON PA-C Nov 19, 2019 11:55
--- NOTE | 2019-11-19 13:03 | IPN ---
DATE OF VISIT: 11/19/2019 is seen this morning on her bedside. She is currently in the gym getting rehab. She is sitting in the wheelchair right now. She denies any dyspnea, chest pain, nausea or vomiting. On physical examination, temperature 98.3 degrees Fahrenheit, heart rate 58 per minute and respiratory rate 18 per minute. Blood pressure 146/65 mmHg and oxygen saturation 93% on room air. Head is atraumatic. Neck supple and without jugular venous distention (JVD) or thyroid enlargement. Dialysis catheter in right internal jugular vein is intact. Heart sounds are regular and lungs sound clear to auscultation. Abdomen: Soft and nontender and bowel sounds are normal. Extremities: Without any cyanosis or clubbing. Neurologically, she is awake, alert and oriented x3. The patient has no recent labs. PROBLEMS: 1. End-stage renal disease. She has been dialysis dependent without any recovery of kidney function so far and will continue with outpatient dialysis. We will not be able to dialyze her today and are going to schedule her for dialysis tomorrow. There is no emergent indication for dialysis today. 2. Anemia. Her anemia has been stable and does not need any intervention. CBC will be checked tomorrow morning. 3. Generalized weakness and deconditioning. The patient is making progress with physical therapy and has started to walk with the help of a walker. She is likely to go home next week.
[2019-11-19 14:00] VITALS: BP 127/59
[2019-11-19] MEDS: LIDOCAINE 5% (LIDODERM) PATCH TD SCH (14:56)
[2019-11-19 20:07] VITALS: BP 121/53
[2019-11-19] MEDS: ACETAMINOPHEN TAB 650MG DOSE (2X325MG) PO PRN (20:52)
[2019-11-19] MEDS: FLUoxetine 20 MG CAP PO SCH (20:52)
[2019-11-19] MEDS: **NOTE PATIENT COMMENT** MISC XX SCH (21:11)
[2019-11-20] MEDS: REMEDY PHYTOPLEX Z-GUARD PASTE 113GM TUBE (FROM STOREROOM PRODUCT) TOP SCH ×6 (02:24→20:21)
[2019-11-20 05:27] VITALS: BP 150/95
[2019-11-20 06:54] LABS: HEMATOCRIT 31.8 % (36.0-47.0); HEMOGLOBIN 10.1 g/dl (12.0-15.5); MEAN CORPUSCULAR HEMOGLOBIN 26.9 pg (27.0-33.0); MEAN CORPUSCULAR HGB CONC 31.8 g/dl (32.0-36.5); MEAN CORPUSCULAR VOLUME 84.6 fl (80.0-96.0); PLATELET COUNT, AUTOMATED 419 10^3/uL (150-450); RED BLOOD COUNT 3.76 10^6/uL (4.00-5.40); WHITE BLOOD COUNT 11.3 10^3/uL (4.0-10.0)
[2019-11-20 07:15] LABS: ALBUMIN 2.2 GM/DL (3.2-5.2); CREATININE FOR GFR 4.89 MG/DL (0.55-1.30); GLOMERULAR FILTRATION RATE 9.2 (>39); PHOSPHORUS LEVEL 5.6 MG/DL (2.5-4.9); POTASSIUM SERUM 4.1 MEQ/L (3.5-5.1)
[2019-11-20] MEDS: IPRATROPIUM 0.5MG/ALBUTEROL 2.5MG INH SOL UD 3ML (DUONEB)(J7620) NEB SCH ×4 (07:20→19:42)
[2019-11-20] MEDS: LACTOBACILLUS ACIDOPHILUS CAP (BACID) PO SCH ×4 (08:10→20:19)
[2019-11-20] MEDS: guaiFENesin 200 MG TAB PO SCH ×3 (08:10→20:18)
[2019-11-20] MEDS: SIMETHICONE 80 MG CHEW TAB PO SCH ×3 (08:10→20:19)
[2019-11-20] MEDS: METOPROLOL SUCC (TopROL XL) 100MG *XL* TAB PO SCH (08:10)
[2019-11-20] MEDS: APIXABAN 5 MG TAB (ELIQUIS) PO SCH ×2 (08:10→20:19)
[2019-11-20] MEDS: LIDOCAINE 5% (LIDODERM) PATCH TD SCH (08:10)
[2019-11-20] MEDS: NYSTATIN 100,000 UNITS/GM TOPICAL PWD 15 GM TOP SCH ×2 (08:11→20:19)
[2019-11-20] MEDS: HumaLOG INSULIN (NovoLOG) PER UNIT SC SCH ×4 (08:11→20:18)
[2019-11-20] MEDS ORDERED: DARBEPOETIN 100 MCG/0.5 ML *DIALYSIS* SYRINGE (J0882) IV SCH (09:45)
[2019-11-20 14:00] VITALS: BP 135/63
[2019-11-20] MEDS: CALCIUM ACETATE 667 MG GELCAP PO SCH (17:33)
[2019-11-20] MEDS: ACETAMINOPHEN TAB 650MG DOSE (2X325MG) PO PRN (17:34)
[2019-11-20 20:00] VITALS: BP 110/57
[2019-11-20] MEDS: FLUoxetine 20 MG CAP PO SCH (20:19)
[2019-11-20] MEDS: **NOTE PATIENT COMMENT** MISC XX SCH (20:19)
[2019-11-21] MEDS: REMEDY PHYTOPLEX Z-GUARD PASTE 113GM TUBE (FROM STOREROOM PRODUCT) TOP SCH ×6 (02:00→20:48)
[2019-11-21 06:06] VITALS: BP 142/65
[2019-11-21] MEDS: LACTOBACILLUS ACIDOPHILUS CAP (BACID) PO SCH ×4 (07:05→20:48)
[2019-11-21] MEDS: HumaLOG INSULIN (NovoLOG) PER UNIT SC SCH ×4 (07:05→20:48)
[2019-11-21] MEDS: CALCIUM ACETATE 667 MG GELCAP PO SCH ×3 (07:06→17:10)
[2019-11-21] MEDS: IPRATROPIUM 0.5MG/ALBUTEROL 2.5MG INH SOL UD 3ML (DUONEB)(J7620) NEB SCH ×4 (07:30→19:55)
[2019-11-21] MEDS: SIMETHICONE 80 MG CHEW TAB PO SCH ×3 (08:32→20:47)
[2019-11-21] MEDS: LIDOCAINE 5% (LIDODERM) PATCH TD SCH (08:32)
[2019-11-21] MEDS: APIXABAN 5 MG TAB (ELIQUIS) PO SCH ×2 (08:32→20:47)
[2019-11-21] MEDS: METOPROLOL SUCC (TopROL XL) 100MG *XL* TAB PO SCH (08:33)
[2019-11-21] MEDS: guaiFENesin 200 MG TAB PO SCH ×3 (08:33→20:48)
[2019-11-21] MEDS: NYSTATIN 100,000 UNITS/GM TOPICAL PWD 15 GM TOP SCH ×2 (08:34→20:48)
[2019-11-21 14:00] VITALS: BP 130/64
[2019-11-21 20:00] VITALS: BP 154/63
[2019-11-21] MEDS: **NOTE PATIENT COMMENT** MISC XX SCH (20:48)
[2019-11-21] MEDS: FLUoxetine 20 MG CAP PO SCH (20:48)
[2019-11-22] MEDS: REMEDY PHYTOPLEX Z-GUARD PASTE 113GM TUBE (FROM STOREROOM PRODUCT) TOP SCH ×6 (02:17→20:24)
[2019-11-22 06:24] VITALS: BP 155/63
[2019-11-22] MEDS: LACTOBACILLUS ACIDOPHILUS CAP (BACID) PO SCH ×4 (07:12→20:23)
[2019-11-22] MEDS: HumaLOG INSULIN (NovoLOG) PER UNIT SC SCH ×4 (07:12→20:24)
[2019-11-22] MEDS: CALCIUM ACETATE 667 MG GELCAP PO SCH ×3 (07:13→17:28)
[2019-11-22] MEDS: IPRATROPIUM 0.5MG/ALBUTEROL 2.5MG INH SOL UD 3ML (DUONEB)(J7620) NEB SCH ×4 (07:26→20:00)
[2019-11-22] MEDS: SIMETHICONE 80 MG CHEW TAB PO SCH ×3 (08:26→20:23)
[2019-11-22] MEDS: guaiFENesin 200 MG TAB PO SCH ×3 (08:26→20:23)
[2019-11-22] MEDS: APIXABAN 5 MG TAB (ELIQUIS) PO SCH ×2 (08:26→20:23)
[2019-11-22] MEDS: METOPROLOL SUCC (TopROL XL) 100MG *XL* TAB PO SCH (08:26)
[2019-11-22] MEDS: LIDOCAINE 5% (LIDODERM) PATCH TD SCH (08:26)
[2019-11-22] MEDS: NYSTATIN 100,000 UNITS/GM TOPICAL PWD 15 GM TOP SCH ×2 (08:27→20:24)
[2019-11-22 10:38] LABS: BASO # 0.2 10^3/uL (0.0-0.2); BASO % 1.4 % (0.0-1.0); EOS # 0.3 10^3/uL (0.0-0.5); EOS % 2.4 % (0.0-3.0); HEMATOCRIT 35.5 % (36.0-47.0); HEMOGLOBIN 11.2 g/dl (12.0-15.5); LYMPH # 1.6 10^3/uL (1.5-5.0); LYMPH % 12.6 % (24.0-44.0); MEAN CORPUSCULAR HEMOGLOBIN 27.2 pg (27.0-33.0); MEAN CORPUSCULAR HGB CONC 31.5 g/dl (32.0-36.5); MEAN CORPUSCULAR VOLUME 86.2 fl (80.0-96.0); MONO # 0.9 10^3/uL (0.0-0.8); MONO % 6.6 % (0.0-5.0); NEUTROPHILS # 9.9 10^3/uL (1.5-8.5); NEUTROPHILS % 76.2 % (36.0-66.0); PLATELET COUNT, AUTOMATED 325 10^3/uL (150-450); RED BLOOD COUNT 4.12 10^6/uL (4.00-5.40)
[2019-11-22 11:05] LABS: CALCIUM LEVEL 8.3 MG/DL (8.8-10.2); CREATININE FOR GFR 3.92 MG/DL (0.55-1.30); GLOMERULAR FILTRATION RATE 11.9 (>39); POTASSIUM SERUM 4.5 MEQ/L (3.5-5.1)
--- NOTE | 2019-11-22 11:14 | IPNPDOC ---
PM&R Progress Note DATE OF SERVICE: Nov 22, 2019 Desk Editor Progress Note Subjective: Patient seen in bed stating she feels good today, states she has better control over her bowels and bladder. REVIEW OF SYSTEMS: The following is a completed review of systems and has been reviewed. Review of systems otherwise unremarkable. PAIN: Patient self reports no pain EYES: No recent vision changes EARS, NOSE, & THROAT: No throat pain, or dysphagia, or rhinorrhea CARDIOVASCULAR: Denies chest pain or palpitations PULMONARY: Denies shortness of breath GASTROINTESTINAL: +incontinence (improving) GENITOURINARY: denies dysuria MUSCULOSKELETAL: generalized weakness NEUROLOGICAL:+confused (improving) HEMATOLOGICAL: denies easy bruising SKIN: sacral wound, left inner thigh rash, sternal incision PSYCHIATRIC: Unremarkable All other review of systems found to be negative. PHYSICAL EXAMINATION: VITAL SIGNS: Please see below. GENERAL: Pleasant and cooperative. No acute distress. HEENT: PERRL. Extraocular movements intact. Clear conjunctiva CARDIOVASCULAR: Regular rate and rhythm. No murmurs, rubs, or gallops LUNGS: decreased breath sounds bilat, No wheezes. No rhonchi ABDOMEN: Soft, nontender, nondistended. Positive bowel sounds. Normal active bowel sounds NEUROLOGICAL: Alert and oriented to self and place, Cranial nerves II through X II grossly intact. Sensation grossly intact EXTREMITIES: 4\5 strength bilateral upper extremities. 4\5 strength right lower extremity. 4/5 strength in left lower extremity. SKIN: sacral fold stage 2 ulcer (healed), +external hemorrhoids, left inner thigh with dried vesicular lesions, sternal incision c/d/i ASSESSMENT:78-year-old F with past medical history of HTN, CKD who presents status post complicated and prolonged hospital course for sepsis, acute respiratory failure, encephalopathy PLAN: 1. Rehab- PT/OT advance gait and ADL training, pacemaker and sternal precautions- strengthen/stretch/maintain ROM all 4 limbs- teach energy conservation, ambulating with RW -PLANT PATHOLOGIST for cog 2. Neuro: patient presenting with persistent encephalopathy likely due to infection, metabolic derangement, and recent episodes of asystole possibly causing hypoxic injury -will avoid deliriogenics -c/u low dose antidepressant as well to help with overall function 3. 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 Resp: s/p Zosyn for aspiration pneumonia -Duonebs and guaifenesin 5. Renal: patient with recent initiation of dialysis, renal consulted to assist in management-recs appreciated 6. GI: c/u protonix for ppx -c/u simethicone standing to help with abdominal cramping, bowel meds are on hold due to frequent stooling-gradually improving -immodium ordered prn loose stools 7. DVT ppx: on eliquis for Afib, also noted to have right UE basilica vein thrombus on 10-16-19 8. Skin: frequent rubén-care for fecal incontinence and barrier cream, Tucks added for relief 9. Pain: Tylenol prn 10. Endo: on ISS for DM, good FS control 11. Leukocytosis: patient without fever or chills, blood cx ordered so far negative, holding off on C diff as patient with soft, not loose stools patient denies dysuria, but will with mild confusion, will check UA 12. Dispo: TBD Allergies Coded Allergies: No Known Allergies (Unverified , 10/15/18) Vital Signs Vital Signs Date Time Temp Pulse Resp B/P (MAP) Pulse Ox O2 Delivery O2 Flow Rate FiO2 11/22/19 08:26 69 155/63 11/22/19 06:24 97.2 18 96 Room Air Laboratory Data CBC/BMP Laboratory Tests 11/22/19 09:58 Labs 24H Laboratory Tests 2 11/21/19 11:39: Bedside Glucose (Misc Panel) 136H 11/21/19 16:18: Bedside Glucose (Misc Panel) 131H 11/21/19 19:53: Bedside Glucose (Misc Panel) 178H 11/22/19 06:02: Bedside Glucose (Misc Panel) 151H 11/22/19 09:58: Immature Granulocyte % (Auto) 0.8, Neutrophils (%) (Auto) 76.2H, Lymphocytes (%) (Auto) 12.6L, Monocytes (%) (Auto) 6.6H, Eosinophils (%) (Auto) 2.4, Basophils (%) (Auto) 1.4H, Neutrophils # (Auto) 9.9H, Lymphocytes # (Auto) 1.6, Monocytes # (Auto) 0.9H, Eosinophils # (Auto) 0.3, Basophils # (Auto) 0.2, Nucleated Red Blood Cells % (auto) 0.0, Anion Gap 9, Glomerular Filtration Rate 11.9L, Calcium Level 8.3L Microbiology Microbiology 11/15/19 Blood Culture - Final, Complete NO GROWTH AFTER 5 DAYS 11/14/19 Blood Culture - Final, Complete NO GROWTH AFTER 5 DAYS Current Medications Current Medications Current Medications Medications (Trade) Dose Ordered Sig/Renetta Route PRN Reason Start Time Stop Time Status Last Admin Dose Admin Acetaminophen (Tylenol Tab) 650 mg Q4HP PRN PO fever/MILD PAIN (PS 1-4) 11/09/19 15:30 11/20/19 17:34 Albuterol/ Ipratropium (Duoneb (Ipr 0.5mg/Alb 2.5mg)) 3 ml RQID NEB 11/09/19 16:00 11/22/19 07:26 Apixaban (Eliquis) 5 mg BID PO 11/09/19 21:00 11/22/19 08:26 Calcium Acetate (Phoslo) 667 mg WM PO 11/20/19 18:00 11/22/19 07:13 Darbepoetin Francisco (Aranesp (Dialysis Use)) 100 mcg HD IV 11/10/19 13:00 11/15/19 12:35 DC Darbepoetin Francisco (Aranesp (Dialysis Use)) 100 mcg HD IV 11/20/19 09:45 Dextrose (Dextrose 50%) 25 ml ASDIRECTED PRN IV SEE LABEL COMMENTS 11/09/19 15:30 Fluoxetine HCl (PROzac) 20 mg QHS PO 11/11/19 21:00 11/21/19 20:48 Glucagon (Glucagon) 1 mg ASDIRECTED PRN SC SEE LABEL COMMENTS 11/09/19 15:30 Glucose (Glucose) 16 GM ASDIRECTED PRN PO SEE LABEL COMMENTS 11/09/19 15:30 Guaifenesin (Robitussin Tab) 400 mg TID PO 11/10/19 16:00 11/22/19 08:26 Insulin Human Lispro (HumaLOG INSULIN) SEE PROTOCOL TABLE AC SC 11/09/19 17:30 11/22/19 07:12 Insulin Human Lispro (HumaLOG INSULIN) SEE PROTOCOL TABLE QHS SC 11/09/19 21:00 Lactobacillus Acidophilus (Bacid) 1 ea ACHS PO 11/09/19 17:30 11/22/19 07:12 Lactobacillus Acidophilus (Bacid) 1 ea WM PO 11/09/19 18:00 UNV Lidocaine (Lidoderm Patch) 1 patch DAILY TD 11/10/19 09:00 11/09/19 16:19 DC Lidocaine (Lidoderm Patch) 1 patch DAILY TD 11/19/19 09:00 11/22/19 08:26 Loperamide HCl (Imodium) 2 mg ASDIRECTED PRN PO DIARRHEA 11/09/19 15:30 11/18/19 09:23 Metoprolol Succinate (TopROL XL) 100 mg DAILY PO 11/10/19 09:00 11/22/19 08:26 Miscellaneous (Unresolved Clarification Entry) SEE LABEL COMMENTS DAILY XX 11/21/19 09:00 11/22/19 07:56 DC Miscellaneous (Unresolved Clarification Entry) SEE LABEL COMMENTS DAILY XX 11/22/19 09:00 11/22/19 09:36 DC Non-Formulary Medication ( See Comment Field Below ) REMOVE LIDODERM PATCH DAILY@21 XX 11/09/19 21:00 11/09/19 16:19 DC Non-Formulary Medication ( See Comment Field Below ) REMOVE LIDODERM PATCH DAILY@21 XX 11/19/19 21:00 11/21/19 20:48 Nystatin (Mycostatin Powder, Nystop) apply to groin BID TOP 11/09/19 21:00 11/22/19 08:27 Ondansetron HCl (Zofran) 4 mg Q6HP PRN PO NAUSEA 11/09/19 15:30 11/18/19 21:20 Piperacillin Sod/ Tazobactam Sod 2.25 gm/Dextrose 50 ml @ 100 mls/hr Q8H IV 11/09/19 17:00 11/10/19 17:29 DC 11/10/19 18:15 Simethicone (Mylicon) 80 mg QIDP PRN PO BLOATING 11/09/19 15:30 11/11/19 16:36 DC Simethicone (Mylicon) 80 mg TID PO 11/11/19 16:00 11/22/19 08:26 CLARK AHUJA MD Nov 22, 2019 11:14
--- NOTE | 2019-11-22 11:14 | IPNPDOC ---
PM&R Progress Note DATE OF SERVICE: Nov 19, 2019 Commercial Litigation Attorney Progress Note Subjective: Patient seen walking in therapy stating she feels well and has no complaints. REVIEW OF SYSTEMS: The following is a completed review of systems and has been reviewed. Review of systems otherwise unremarkable. PAIN: Patient self reports no pain EYES: No recent vision changes EARS, NOSE, & THROAT: No throat pain, or dysphagia, or rhinorrhea CARDIOVASCULAR: Denies chest pain or palpitations PULMONARY: Denies shortness of breath GASTROINTESTINAL: +incontinence (improving) GENITOURINARY: denies dysuria MUSCULOSKELETAL: generalized weakness NEUROLOGICAL:+confused (improving) HEMATOLOGICAL: denies easy bruising SKIN: sacral wound, left inner thigh rash, sternal incision PSYCHIATRIC: Unremarkable All other review of systems found to be negative. PHYSICAL EXAMINATION: VITAL SIGNS: Please see below. GENERAL: Pleasant and cooperative. No acute distress. HEENT: PERRL. Extraocular movements intact. Clear conjunctiva CARDIOVASCULAR: Regular rate and rhythm. No murmurs, rubs, or gallops LUNGS: decreased breath sounds bilat, No wheezes. No rhonchi ABDOMEN: Soft, nontender, nondistended. Positive bowel sounds. Normal active bowel sounds NEUROLOGICAL: Alert and oriented to self and place, Cranial nerves II through XII grossly intact. Sensation grossly intact EXTREMITIES: 4\5 strength bilateral upper extremities. 4\5 strength right lower extremity. 4/5 strength in left lower extremity. SKIN: sacral fold stage 2 ulcer, +external hemorrhoids, left inner thigh with dried vesicular lesions, sternal incision c/d/i ASSESSMENT:78-year-old F with past medical history of HTN, CKD who presents status post complicated and prolonged hospital course for sepsis, acute respiratory failure, encephalopathy PLAN: 1. Rehab- PT/OT advance gait and ADL training, pacemaker and sternal precautions- strengthen/stretch/maintain ROM all 4 limbs- teach energy conservation -WEBSITE ADMIN for cog 2. Neuro: patient presenting with persistent encephalopathy likely due to infection, metabolic derangement, and recent episodes of asystole possibly causing hypoxic injury -will avoid deliriogenics -c/u low dose antidepressant as well to help with overall function 3. 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 Resp: s/p Zosyn for aspiration pneumonia -Duonebs and guaifenesin 5. Renal: patient with recent initiation of dialysis, renal consulted to assist in management-recs appreciated 6. GI: c/u protonix for ppx -c/u simethicone standing to help with abdominal cramping, bowel meds are on hold due to frequent stooling-gradually improving -immodium ordered prn loose stools 7. DVT ppx: on eliquis for Afib, also noted to have right UE basilica vein thrombus on 10-16-19 8. Skin: frequent rubén-care for fecal incontinence and barrier cream, Tucks added for relief 9. Pain: Tylenol prn 10. Leukocytosis: patient without fever or chills, blood cx ordered so far negative, holding off on C diff as patient with soft, not loose stools patient denies dysuria, will hold off on UA 10. Dispo: TBD Allergies Coded Allergies: No Known Allergies (Unverified , 10/15/18) Vital Signs Vital Signs Date Time Temp Pulse Resp B/P (MAP) Pulse Ox O2 Delivery O2 Flow Rate FiO2 11/22/19 08:26 69 155/63 11/22/19 06:24 97.2 18 96 Room Air Laboratory Data CBC/BMP Laboratory Tests 11/22/19 09:58 Labs 24H Laboratory Tests 2 11/21/19 11:39: Bedside Glucose (Misc Panel) 136H 11/21/19 16:18: Bedside Glucose (Misc Panel) 131H 11/21/19 19:53: Bedside Glucose (Misc Panel) 178H 11/22/19 06:02: Bedside Glucose (Misc Panel) 151H 11/22/19 09:58: Immature Granulocyte % (Auto) 0.8, Neutrophils (%) (Auto) 76.2H, Lymphocytes (%) (Auto) 12.6L, Monocytes (%) (Auto) 6.6H, Eosinophils (%) (Auto) 2.4, Basophils (%) (Auto) 1.4H, Neutrophils # (Auto) 9.9H, Lymphocytes # (Auto) 1.6, Monocytes # (Auto) 0.9H, Eosinophils # (Auto) 0.3, Basophils # (Auto) 0.2, Nucleated Red Blood Cells % (auto) 0.0, Anion Gap 9, Glomerular Filtration Rate 11.9L, Calcium Level 8.3L Microbiology Microbiology 11/15/19 Blood Culture - Final, Complete NO GROWTH AFTER 5 DAYS 11/14/19 Blood Culture - Final, Complete NO GROWTH AFTER 5 DAYS Current Medications Current Medications Current Medications Medications (Trade) Dose Ordered Sig/Renetta Route PRN Reason Start Time Stop Time Status Last Admin Dose Admin Acetaminophen (Tylenol Tab) 650 mg Q4HP PRN PO fever/MILD PAIN (PS 1-4) 11/09/19 15:30 11/20/19 17:34 Albuterol/ Ipratropium (Duoneb (Ipr 0.5mg/Alb 2.5mg)) 3 ml RQID NEB 11/09/19 16:00 11/22/19 07:26 Apixaban (Eliquis) 5 mg BID PO 11/09/19 21:00 11/22/19 08:26 Calcium Acetate (Phoslo) 667 mg WM PO 11/20/19 18:00 11/22/19 07:13 Darbepoetin Francisco (Aranesp (Dialysis Use)) 100 mcg HD IV 11/10/19 13:00 11/15/19 12:35 DC Darbepoetin Francisco (Aranesp (Dialysis Use)) 100 mcg HD IV 11/20/19 09:45 Dextrose (Dextrose 50%) 25 ml ASDIRECTED PRN IV SEE LABEL COMMENTS 11/09/19 15:30 Fluoxetine HCl (PROzac) 20 mg QHS PO 11/11/19 21:00 11/21/19 20:48 Glucagon (Glucagon) 1 mg ASDIRECTED PRN SC SEE LABEL COMMENTS 11/09/19 15:30 Glucose (Glucose) 16 GM ASDIRECTED PRN PO SEE LABEL COMMENTS 11/09/19 15:30 Guaifenesin (Robitussin Tab) 400 mg TID PO 11/10/19 16:00 11/22/19 08:26 Insulin Human Lispro (HumaLOG INSULIN) SEE PROTOCOL TABLE AC SC 11/09/19 17:30 11/22/19 07:12 Insulin Human Lispro (HumaLOG INSULIN) SEE PROTOCOL TABLE QHS SC 11/09/19 21:00 Lactobacillus Acidophilus (Bacid) 1 ea ACHS PO 11/09/19 17:30 11/22/19 07:12 Lactobacillus Acidophilus (Bacid) 1 ea WM PO 11/09/19 18:00 UNV Lidocaine (Lidoderm Patch) 1 patch DAILY TD 11/10/19 09:00 11/09/19 16:19 DC Lidocaine (Lidoderm Patch) 1 patch DAILY TD 11/19/19 09:00 11/22/19 08:26 Loperamide HCl (Imodium) 2 mg ASDIRECTED PRN PO DIARRHEA 11/09/19 15:30 11/18/19 09:23 Metoprolol Succinate (TopROL XL) 100 mg DAILY PO 11/10/19 09:00 11/22/19 08:26 Miscellaneous (Unresolved Clarification Entry) SEE LABEL COMMENTS DAILY XX 11/21/19 09:00 11/22/19 07:56 DC Miscellaneous (Unresolved Clarification Entry) SEE LABEL COMMENTS DAILY XX 11/22/19 09:00 11/22/19 09:36 DC Non-Formulary Medication ( See Comment Field Below ) REMOVE LIDODERM PATCH DAILY@21 XX 11/09/19 21:00 11/09/19 16:19 DC Non-Formulary Medication ( See Comment Field Below ) REMOVE LIDODERM PATCH DAILY@21 XX 11/19/19 21:00 11/21/19 20:48 Nystatin (Mycostatin Powder, Nystop) apply to groin BID TOP 11/09/19 21:00 11/22/19 08:27 Ondansetron HCl (Zofran) 4 mg Q6HP PRN PO NAUSEA 11/09/19 15:30 11/18/19 21:20 Piperacillin Sod/ Tazobactam Sod 2.25 gm/Dextrose 50 ml @ 100 mls/hr Q8H IV 11/09/19 17:00 11/10/19 17:29 DC 11/10/19 18:15 Simethicone (Mylicon) 80 mg QIDP PRN PO BLOATING 11/09/19 15:30 11/11/19 16:36 DC Simethicone (Mylicon) 80 mg TID PO 11/11/19 16:00 11/22/19 08:26 CLARK AHUJA MD Nov 22, 2019 11:14
[2019-11-22 14:00] VITALS: BP 130/60
[2019-11-22 20:00] VITALS: BP 141/63
[2019-11-22] MEDS: FLUoxetine 20 MG CAP PO SCH (20:23)
[2019-11-22] MEDS: **NOTE PATIENT COMMENT** MISC XX SCH (20:24)
[2019-11-23] MEDS: REMEDY PHYTOPLEX Z-GUARD PASTE 113GM TUBE (FROM STOREROOM PRODUCT) TOP SCH ×6 (02:58→20:37)
[2019-11-23 06:00] VITALS: BP 148/67
[2019-11-23] MEDS: HumaLOG INSULIN (NovoLOG) PER UNIT SC SCH (07:44)
[2019-11-23] MEDS: CALCIUM ACETATE 667 MG GELCAP PO SCH ×3 (07:44→17:07)
[2019-11-23] MEDS: LACTOBACILLUS ACIDOPHILUS CAP (BACID) PO SCH ×4 (07:44→20:36)
[2019-11-23] MEDS: IPRATROPIUM 0.5MG/ALBUTEROL 2.5MG INH SOL UD 3ML (DUONEB)(J7620) NEB SCH ×4 (08:00→20:00)
[2019-11-23] MEDS: SIMETHICONE 80 MG CHEW TAB PO SCH ×3 (09:00→20:36)
[2019-11-23] MEDS: METOPROLOL SUCC (TopROL XL) 100MG *XL* TAB PO SCH (09:00)
[2019-11-23] MEDS: guaiFENesin 200 MG TAB PO SCH ×3 (09:00→20:36)
[2019-11-23] MEDS: APIXABAN 5 MG TAB (ELIQUIS) PO SCH ×2 (09:00→20:36)
[2019-11-23] MEDS: LIDOCAINE 5% (LIDODERM) PATCH TD SCH (09:01)
[2019-11-23] MEDS: NYSTATIN 100,000 UNITS/GM TOPICAL PWD 15 GM TOP SCH ×2 (09:02→20:37)
[2019-11-23] MEDS ORDERED: HEPARIN 1,000 UNITS/ML 10ML VIAL (FOR RADIOLOGY& DIALYSIS ONLY)(J1644-10) XX ONE (12:00)
[2019-11-23] MEDS ORDERED: HEPARIN 1,000 UNITS/ML 10ML VIAL (FOR RADIOLOGY& DIALYSIS ONLY)(J1644-10) IV ONE (12:00)
--- NOTE | 2019-11-23 12:19 | IPN ---
DATE: 11/23/2019 SUBJECTIVE: The patient was seen and examined the bedside this morning in the rehabilitation unit. She is afebrile, hemodynamically stable. Plan for her discharge to home is postponed because she probably would need some rehab with senior living placement. Today is the patient's day of dialysis. She will be dialyzed in the afternoon. OBJECTIVE Vital signs: Temperature is 97.9 degrees Fahrenheit, blood pressure 148/67, pulse is 61, respiratory of 18, saturating 95% on room air. Intake and output: There is no urine output recorded. She had one void since overnight. Weight in the bed scale is 65 kg, which is stable. PHYSICAL EXAMINATION General: The patient is awake, alert, oriented times three, sitting up in the sofa, no apparent distress. Head and neck exam: Extraocular muscles intact. Pupils equally round and reactive to light. Mucous membranes are moist. Neck is supple. There is no jugular venous distention (JVD). Cardiovascular: S1, S2. Regular rate. No edema of the bilateral lower extremities. Respiratory: Chest is clear to auscultation bilaterally. Bilateral equal air entry. No rales or rhonchi. Abdomen: Soft, obese, positive bowel sounds. Nontender. No organomegaly. Musculoskeletal: No clubbing or cyanosis. Pulses are 2+. Central nervous system (ENVIRONMENTAL AID): No focal deficit in all extremities. LABORATORY REVIEW: CBC showed WBC 13, hemoglobin is 11.2, platelets are 325. BMP showed sodium 136, potassium 4.5, chloride 102, BUN 45, creatinine 3.9 and these labs are from yesterday. CURRENT INPATIENT MEDICATIONS: The patient's medications were all reviewed by myself. Insulin Humalog and Lispro have been stopped. No other change in the medications today as compared with yesterday. ASSESSMENT/PLAN: 1. End-stage renal disease. The patient will be dialyzed today. Ultrafiltration goal will be 500. 2. Anemia in end-stage renal disease, hemoglobin level is optimal. She is currently on Aranesp 100 mcg once a week. If hemoglobin stays above 11, then Aranesp will be stopped. 3. Combined systolic and diastolic congestive heart failure. Patient has an LV ejection fraction of around 35%. Volume status is optimal. Continue current dry weight.
--- NOTE | 2019-11-23 12:22 | IPNPDOC ---
PM&R Progress Note DATE OF SERVICE: Nov 23, 2019 Fabrication Inspector Progress Note Subjective: Patient seen in her room stating she feels good and thinks her friend Parish might be able to help her at home. REVIEW OF SYSTEMS: The following is a completed review of systems and has been reviewed. Review of systems otherwise unremarkable. PAIN: Patient self reports no pain EYES: No recent vision changes EARS, NOSE, & THROAT: No throat pain, or dysphagia, or rhinorrhea CARDIOVASCULAR: Denies chest pain or palpitations PULMONARY: Denies shortness of breath GASTROINTESTINAL: +incontinence (improving) GENITOURINARY: denies dysuria MUSCULOSKELETAL: generalized weakness NEUROLOGICAL:+confused (improving) HEMATOLOGICAL: denies easy bruising SKIN: sacral wound, left inner thigh rash, sternal incision PSYCHIATRIC: Unremarkable All other review of systems found to be negative. PHYSICAL EXAMINATION: VITAL SIGNS: Please see below. GENERAL: Pleasant and cooperative. No acute distress. HEENT: PERRL. Extraocular movements intact. Clear conjunctiva CARDIOVASCULAR: Regular rate and rhythm. No murmurs, rubs, or gallops LUNGS: decreased breath sounds bilat, No wheezes. No rhonchi ABDOMEN: Soft, nontender, nondistended. Positive bowel sounds. Normal active bowel sounds NEUROLOGICAL: Alert and oriented to self and place, Cranial nerves II through XII grossly intact. Sensation grossly intact EXTREMITIES: 4\5 strength bilateral upper extremities. 4\5 strength right lower extremity. 4/5 strength in left lower extremity. SKIN: sacral fold stage 2 ulcer (healed), +external hemorrhoids, left inner thigh with dried vesicular lesions, sternal incision c/d/i ASSESSMENT:78-year-old F with past medical history of HTN, CKD who presents [facility] post complicated and prolonged hospital course for sepsis, acute respiratory failure, encephalopathy PLAN: 1. Rehab- PT/OT advance gait and ADL training, pacemaker and sternal precautions- strengthen/stretch/maintain ROM all 4 limbs- teach energy con servation, ambulating with RW -PSYCHIATRIC CLINICIAN for cog 2. Neuro: patient presenting with persistent encephalopathy likely due to infection, metabolic derangement, and recent episodes of asystole possibly causing hypoxic injury -will avoid deliriogenics -c/u low dose antidepressant as well to help with overall function 3. 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 Resp: s/p Zosyn for aspiration pneumonia -Duonebs and guaifenesin 5. Renal: patient with recent initiation of dialysis, renal consulted to assist in management-recs appreciated 6. GI: c/u protonix for ppx -c/u simethicone standing to help with abdominal cramping, bowel meds are on hold due to frequent stooling-gradually improving -immodium ordered prn loose stools 7. DVT ppx: on eliquis for Afib, also noted to have right UE basilica vein thrombus on 10-16-19 8. Skin: frequent rubén-care for fecal incontinence and barrier cream, Tucks added for relief- ulcer healed 9. Pain: Tylenol prn 10. Endo: on ISS for DM, good FS control, will d/c ISS and monitor BID FS 11. Leukocytosis: patient without fever or chills, blood cx ordered so far negative, holding off on C diff as patient with soft, not loose stools patient denies dysuria, but will with mild confusion, UA/Ucx ordered 12. Dispo: TBD Allergies Coded Allergies: No Known Allergies (Unverified , 10/15/18) Vital Signs Vital Signs Date Time Temp Pulse Resp B/P (MAP) Pulse Ox O2 Delivery O2 Flow Rate FiO2 11/23/19 09:00 72 150/70 11/23/19 06:00 97.9 18 95 Room Air Laboratory Data Labs 24H Laboratory Tests 2 11/22/19 16:25: Bedside Glucose (Misc Panel) 186H 11/22/19 19:40: Bedside Glucose (Misc Panel) 119H 11/23/19 07:24: Bedside Glucose (Misc Panel) 213H 11/23/19 11:38: Bedside Glucose (Misc Panel) 93 Microbiology Microbiology 11/15/19 Blood Culture - Final, Complete NO GROWTH AFTER 5 DAYS 11/14/19 Blood Culture - Final, Complete NO GROWTH AFTER 5 DAYS Current Medications Current Medications Current Medications Medications (Trade) Dose Ordered Sig/Renetta Route PRN Reason Start Time Stop Time Status Last Admin Dose Admin Acetaminophen (Tylenol Tab) 650 mg Q4HP PRN PO fever/MILD PAIN (PS 1-4) 11/09/19 15:30 11/20/19 17:34 Albuterol/ Ipratropium (Duoneb (Ipr 0.5mg/Alb 2.5mg)) 3 ml RQID NEB 11/09/19 16:00 11/22/19 14:36 Apixaban (Eliquis) 5 mg BID PO 11/09/19 21:00 11/23/19 09:00 Calcium Acetate (Phoslo) 667 mg WM PO 11/20/19 18:00 11/23/19 11:50 Darbepoetin Francisco (Aranesp (Dialysis Use)) 100 mcg HD IV 11/10/19 13:00 11/15/19 12:35 DC Darbepoetin Francisco (Aranesp (Dialysis Use)) 100 mcg HD IV 11/20/19 09:45 Dextrose (Dextrose 50%) 25 ml ASDIRECTED PRN IV SEE LABEL COMMENTS 11/09/19 15:30 Fluoxetine HCl (PROzac) 20 mg QHS PO 11/11/19 21:00 11/22/19 20:23 Glucagon (Glucagon) 1 mg ASDIRECTED PRN SC SEE LABEL COMMENTS 11/09/19 15:30 Glucose (Glucose) 16 GM ASDIRECTED PRN PO SEE LABEL COMMENTS 11/09/19 15:30 Guaifenesin (Robitussin Tab) 400 mg TID PO 11/10/19 16:00 11/23/19 09:00 Insulin Human Lispro (HumaLOG INSULIN) SEE PROTOCOL TABLE AC SC 11/09/19 17:30 11/23/19 11:04 DC 11/23/19 07:44 Insulin Human Lispro (HumaLOG INSULIN) SEE PROTOCOL TABLE QHS SC 11/09/19 21:00 11/23/19 11:04 DC Lactobacillus Acidophilus (Bacid) 1 ea ACHS PO 11/09/19 17:30 11/23/19 11:50 Lactobacillus Acidophilus (Bacid) 1 ea WM PO 11/09/19 18:00 UNV Lidocaine (Lidoderm Patch) 1 patch DAILY TD 11/10/19 09:00 11/09/19 16:19 DC Lidocaine (Lidoderm Patch) 1 patch DAILY TD 11/19/19 09:00 11/23/19 09:01 Loperamide HCl (Imodium) 2 mg ASDIRECTED PRN PO DIARRHEA 11/09/19 15:30 11/18/19 09:23 Metoprolol Succinate (TopROL XL) 100 mg DAILY PO 11/10/19 09:00 11/23/19 09:00 Miscellaneous (Unresolved Clarification Entry) SEE LABEL COMMENTS DAILY XX 11/21/19 09:00 11/22/19 07:56 DC Miscellaneous (Unresolved Clarification Entry) SEE LABEL COMMENTS DAILY XX 11/22/19 09:00 11/22/19 09:36 DC Non-Formulary Medication ( See Comment Field Below ) REMOVE LIDODERM PATCH DAILY@21 XX 11/09/19 21:00 11/09/19 16:19 DC Non-Formulary Medication ( See Comment Field Below ) REMOVE LIDODERM PATCH DAILY@21 XX 11/19/19 21:00 11/22/19 20:24 Nystatin (Mycostatin Powder, Nystop) apply to groin BID TOP 11/09/19 21:00 11/23/19 09:02 Ondansetron HCl (Zofran) 4 mg Q6HP PRN PO NAUSEA 11/09/19 15:30 11/18/19 21:20 Piperacillin Sod/ Tazobactam Sod 2.25 gm/Dextrose 50 ml @ 100 mls/hr Q8H IV 11/09/19 17:00 11/10/19 17:29 DC 11/10/19 18:15 Simethicone (Mylicon) 80 mg QIDP PRN PO BLOATING 11/09/19 15:30 11/11/19 16:36 DC Simethicone (Mylicon) 80 mg TID PO 11/11/19 16:00 11/23/19 09:00 CLARK AHUJA MD Nov 23, 2019 12:22
[2019-11-23 17:36] VITALS: BP 136/63
[2019-11-23 20:00] VITALS: BP 129/43
[2019-11-23] MEDS: FLUoxetine 20 MG CAP PO SCH (20:36)
[2019-11-23] MEDS: **NOTE PATIENT COMMENT** MISC XX SCH (20:37)
[2019-11-24] MEDS: REMEDY PHYTOPLEX Z-GUARD PASTE 113GM TUBE (FROM STOREROOM PRODUCT) TOP SCH ×6 (03:11→21:47)
[2019-11-24 06:00] VITALS: BP 152/68
[2019-11-24 06:10] LABS: BASO # 0.2 10^3/uL (0.0-0.2); BASO % 1.8 % (0.0-1.0); EOS # 0.6 10^3/uL (0.0-0.5); EOS % 4.6 % (0.0-3.0); HEMATOCRIT 33.9 % (36.0-47.0); HEMOGLOBIN 10.5 g/dl (12.0-15.5); LYMPH # 2.1 10^3/uL (1.5-5.0); LYMPH % 16.6 % (24.0-44.0); MEAN CORPUSCULAR HEMOGLOBIN 26.4 pg (27.0-33.0); MEAN CORPUSCULAR VOLUME 85.2 fl (80.0-96.0); MONO # 0.9 10^3/uL (0.0-0.8); NEUTROPHILS # 8.7 10^3/uL (1.5-8.5); NEUTROPHILS % 69.4 % (36.0-66.0); PLATELET COUNT, AUTOMATED 336 10^3/uL (150-450); RED BLOOD COUNT 3.98 10^6/uL (4.00-5.40); WHITE BLOOD COUNT 12.5 10^3/uL (4.0-10.0)
[2019-11-24 06:36] LABS: ALBUMIN 2.3 GM/DL (3.2-5.2); BILIRUBIN,TOTAL 0.9 MG/DL (0.2-1.0); CALCIUM LEVEL 7.8 MG/DL (8.8-10.2); CALCIUM LEVEL 8.1 MG/DL (8.8-10.2); CREATININE FOR GFR 2.29 MG/DL (0.55-1.30); CREATININE FOR GFR 2.36 MG/DL (0.55-1.30); GLOMERULAR FILTRATION RATE 21.3 (>39); GLOMERULAR FILTRATION RATE 22.1 (>39); POTASSIUM SERUM 3.7 MEQ/L (3.5-5.1); POTASSIUM SERUM 3.9 MEQ/L (3.5-5.1); TOTAL PROTEIN 6.6 GM/DL (6.4-8.2)
[2019-11-24] MEDS: IPRATROPIUM 0.5MG/ALBUTEROL 2.5MG INH SOL UD 3ML (DUONEB)(J7620) NEB SCH ×4 (08:00→19:51)
[2019-11-24] MEDS: LIDOCAINE 5% (LIDODERM) PATCH TD SCH (08:59)
[2019-11-24] MEDS: APIXABAN 5 MG TAB (ELIQUIS) PO SCH ×2 (09:00→21:47)
[2019-11-24] MEDS: METOPROLOL SUCC (TopROL XL) 100MG *XL* TAB PO SCH (09:00)
[2019-11-24] MEDS: NYSTATIN 100,000 UNITS/GM TOPICAL PWD 15 GM TOP SCH ×2 (09:00→21:47)
[2019-11-24] MEDS: guaiFENesin 200 MG TAB PO SCH ×3 (09:00→21:47)
[2019-11-24] MEDS: SIMETHICONE 80 MG CHEW TAB PO SCH ×3 (09:00→21:47)
[2019-11-24] MEDS: CALCIUM ACETATE 667 MG GELCAP PO SCH ×3 (09:00→17:01)
[2019-11-24] MEDS: LACTOBACILLUS ACIDOPHILUS CAP (BACID) PO SCH ×4 (09:00→21:47)
--- NOTE | 2019-11-24 10:28 | IPNPDOC ---
Text Note Date of Service The patient was seen on 11/24/19. NOTE Time of service 8:40 AM S The patient denies having any acute complaints, any acute pain, cough, shortness of breath, runny nose, fever, chills, or cough. Per discussion with her therapist, her sessions have been going well and the patient will likely be discharged tomorrow. O Vital Signs Date Time Temp Pulse Resp B/P (MAP) Pulse Ox O2 Delivery O2 Flow Rate FiO2 11/24/19 09:00 60 152/68 11/24/19 06:00 99.4 60 18 152/68 (96) 92 Room Air 11/23/19 20:00 97.2 60 18 129/43 (71) 92 Room Air 11/23/19 17:36 98.6 65 18 136/63 (87) 94 Room Air GEN: well-nourished / well developed/ NAD INTEGUMENT: not flushed HEENT: NCAT / lips acyanotic /mucus membranes moist and pink CVS: RRR/NMRG LUNGS: able to speak full sentences without stopping to take a breath / no coughing / lungs are clear to auscultation bilaterally on room air MSK/EXTREMITIES: Gait slow and steady using a rolling walker NEURO: CN 2-12 are grossly intact / speech is not dysarthric / PSYCH: alert and oriented / able to understand and follow all commands Laboratory Tests 11/24/19 05:44 A&P Ms. More is a 78-year-old with a history of IDDM, chronic systolic ( EF 35% ) with diastolic CHF, recent pericardial effusion status post pericardial window, recent SCA with asystole, status post pacemaker placement for tachybradycardia syndrome, newly diagnosed A. fib, chronic HTN and ESRD with anemia of chronic disease who was transferred to ARU for rehabilitation to manage debility after a prolonged hospital stay. 1. Debility/Deconditioning - rehab plans per primary team 2. Mild Leucocytosis - monitor vitals & f/u repeat CBC 3. Chronic Systolic/Diastolic CHF - c/w metoprolol / consider adding low dose furosemide and /or isordil and hydralazine combo since she is not a candidate for ACEI/ARB/ARNI or K sparing diuretic due to renal impairment 4. Chronic HTN. Her target BP with CKD is <130/80. - consider d/c guaifenasin which can increase BP especially in elderly patients and adding furosemide 5. IDDM (A1C of 8.1%). Reviewed FSBS - c/w current regiment 6. Newly diagnosed A Fib - c/w apixaban 7. ESRD - dialysis per Nephrology team 8. Normocytic Anemia. Her Hg is trending down. Her target Hg w CKD is about 10- 11.5 - f/u reticulocyte #, iron studies and stool occult DVT Px not needed bc she is on AC for A Fib Thank you for consulting us. We will continue to follow the patient with you. JOHNSON GOEL MD Nov 24, 2019 10:28
[2019-11-24] MEDS ORDERED: ELIQ5TAB PO (10:38)
[2019-11-24] MEDS ORDERED: FLUO20CA22 PO (10:39)
[2019-11-24] MEDS ORDERED: CALC1CAP PO (10:39)
[2019-11-24] MEDS ORDERED: METO1TAB33 PO (10:39)
[2019-11-24] MEDS ORDERED: RISATAB3 PO (10:39)
[2019-11-24] MEDS ORDERED: SIME80TA PO (10:39)
[2019-11-24 10:50] LABS: PERCENT SATURATION 22.4 % (13.2-45.0)
--- NOTE | 2019-11-24 11:43 | IPNPDOC ---
PM&R Progress Note DATE OF SERVICE: Nov 24, 2019 Medical Operations Supervisor Progress Note Subjective: Patient reporting she feels ready to go home tomorrow and is looking forward to it. REVIEW OF SYSTEMS: The following is a completed review of systems and has been reviewed. Review of systems otherwise unremarkable. PAIN: Patient self reports no pain EYES: No recent vision changes EARS, NOSE, & THROAT: No throat pain, or dysphagia, or rhinorrhea CARDIOVASCULAR: Denies chest pain or palpitations PULMONARY: Denies shortness of breath GASTROINTESTINAL: +incontinence (improving) GENITOURINARY: denies dysuria MUSCULOSKELETAL: generalized weakness NEUROLOGICAL:+confused (improving) HEMATOLOGICAL: denies easy bruising SKIN: sacral wound, left inner thigh rash, sternal incision PSYCHIATRIC: Unremarkable All other review of systems found to be negative. PHYSICAL EXAMINATION: VITAL SIGNS: Please see below. GENERAL: Pleasant and cooperative. No acute distress. HEENT: PERRL. Extraocular movements intact. Clear conjunctiva CARDIOVASCULAR: Regular rate and rhythm. No murmurs, rubs, or gallops LUNGS: decreased breath sounds bilat, No wheezes. No rhonchi ABDOMEN: Soft, nontender, nondistended. Positive bowel sounds. Normal active bowel sounds NEUROLOGICAL: Alert and oriented to self and place, Cranial nerves II through XII grossly intact. Sensation grossly intact EXTREMITIES: 4\5 strength bilateral upper extremities. 4\5 strength right lower extremity. 4/5 strength in left lower extremity. SKIN: sacral fold stage 2 ulcer (healed), +external hemorrhoids, left inner thigh with dried vesicular lesions, sternal incision c/d/i ASSESSMENT:78-year-old F with past medical history of HTN, CKD who presents status post complicated and prolonged hospital course for sepsis, acute respiratory failure, encephalopathy PLAN: 1. 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 Neuro: patient presenting with persistent encephalopathy likely due to infection, metabolic derangement, and recent episodes of asystole possibly causing hypoxic injury -will avoid deliriogenics -c/u low dose antidepressant as well to help with overall function 3. 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 Resp: s/p Zosyn for aspiration pneumonia -Duonebs and guaifenesin 5. Renal: patient with recent initiation of dialysis, renal consulted to assist in management-recs appreciated 6. GI: c/u protonix for ppx -c/u simethicone standing to help with abdominal cramping, bowel meds are on hold due to frequent stooling-gradually improving -immodium ordered prn loose stools 7. DVT ppx: on eliquis for Afib, also noted to have right UE basilica vein thrombus on 10-16-19 8. Skin: frequent rubén-care for fecal incontinence and barrier cream, Tucks added for relief- ulcer healed 9. Pain: Tylenol prn 10. Endo: on ISS for DM, good FS control, will d/c ISS and monitor BID FS 11. Leukocytosis: patient without fever or chills, blood cx ordered so far negative, holding off on C diff as patient with soft, not loose stools patient denies dysuria, but will with mild confusion, UA/Ucx ordered 12. Dispo: 11-25-19 to home with 24-7 care, progressing towards goals Allergies Coded Allergies: No Known Allergies (Unverified , 10/15/18) Vital Signs Vital Signs Date Time Temp Pulse Resp B/P (MAP) Pulse Ox O2 Delivery O2 Flow Rate FiO2 11/24/19 09:00 60 152/68 11/24/19 06:00 99.4 18 92 Room Air Laboratory Data CBC/BMP Laboratory Tests 11/24/19 05:44 Labs 24H Laboratory Tests 2 11/23/19 16:55: Bedside Glucose (Misc Panel) 111H 11/24/19 05:44: Immature Granulocyte % (Auto) 0.6, Neutrophils (%) (Auto) 69.4H, Lymphocytes (%) (Auto) 16.6L, Monocytes (%) (Auto) 7.0H, Eosinophils (%) (Auto) 4.6H, Basophils (%) (Auto) 1.8H, Neutrophils # (Auto) 8.7H, Lymphocytes # (Auto) 2.1, Monocytes # (Auto) 0.9H, Eosinophils # (Auto) 0.6H, Basophils # (Auto) 0.2, Reticulocyte # (auto) 135.6H, Nucleated Red Blood Cells % (auto) 0.0, Percent Reticulocyte Count 3.5H, Reticulocyte Hemoglobin Equivalent 31.1, Anion Gap 9, Glomerular Filtration Rate 21.3L, Calcium Level 8.1L, Iron Level 39L, Total Iron Binding Capacity 174L, Transferrin % Saturation 22.4, Ferritin 141, Total Bilirubin 0.9, Aspartate Amino Transf (AST/SGOT) 12, Alanine Aminotransferase (ALT/SGPT) 12, Alkaline Phosphatase 100, Total Protein 6.6, Albumin 2.3L, Albumin/Globulin Ratio 0.53L 11/24/19 11:24: Bedside Glucose (Misc Panel) 139H Microbiology Microbiology 11/15/19 Blood Culture - Final, Complete NO GROWTH AFTER 5 DAYS 11/14/19 Blood Culture - Final, Complete NO GROWTH AFTER 5 DAYS Current Medications Current Medications Current Medications Medications (Trade) Dose Ordered Sig/Renetta Route PRN Reason Start Time Stop Time Status Last Admin Dose Admin Acetaminophen (Tylenol Tab) 650 mg Q4HP PRN PO fever/MILD PAIN (PS 1-4) 11/09/19 15:30 11/20/19 17:34 Albuterol/ Ipratropium (Duoneb (Ipr 0.5mg/Alb 2.5mg)) 3 ml RQID NEB 11/09/19 16:00 11/24/19 11:18 Apixaban (Eliquis) 5 mg BID PO 11/09/19 21:00 11/24/19 09:00 Calcium Acetate (Phoslo) 667 mg WM PO 11/20/19 18:00 11/24/19 11:30 Darbepoetin Francisco (Aranesp (Dialysis Use)) 100 mcg HD IV 11/10/19 13:00 11/15/19 12:35 DC Darbepoetin Francisco (Aranesp (Dialysis Use)) 100 mcg HD IV 11/20/19 09:45 Dextrose (Dextrose 50%) 25 ml ASDIRECTED PRN IV SEE LABEL COMMENTS 11/09/19 15:30 Fluoxetine HCl (PROzac) 20 mg QHS PO 11/11/19 21:00 11/23/19 20:36 Glucagon (Glucagon) 1 mg ASDIRECTED PRN SC SEE LABEL COMMENTS 11/09/19 15:30 Glucose (Glucose) 16 GM ASDIRECTED PRN PO SEE LABEL COMMENTS 11/09/19 15:30 Guaifenesin (Robitussin Tab) 400 mg TID PO 11/10/19 16:00 11/24/19 09:00 Insulin Human Lispro (HumaLOG INSULIN) SEE PROTOCOL TABLE AC SC 11/09/19 17:30 11/23/19 11:04 DC 11/23/19 07:44 Insulin Human Lispro (HumaLOG INSULIN) SEE PROTOCOL TABLE QHS SC 11/09/19 21:00 11/23/19 11:04 DC Lactobacillus Acidophilus (Bacid) 1 ea ACHS PO 11/09/19 17:30 11/24/19 11:29 Lactobacillus Acidophilus (Bacid) 1 ea WM PO 11/09/19 18:00 UNV Lidocaine (Lidoderm Patch) 1 patch DAILY TD 11/10/19 09:00 11/09/19 16:19 DC Lidocaine (Lidoderm Patch) 1 patch DAILY TD 11/19/19 09:00 11/24/19 08:59 Loperamide HCl (Imodium) 2 mg ASDIRECTED PRN PO DIARRHEA 11/09/19 15:30 11/18/19 09:23 Metoprolol Succinate (TopROL XL) 100 mg DAILY PO 11/10/19 09:00 11/24/19 09:00 Miscellaneous (Unresolved Clarification Entry) SEE LABEL COMMENTS DAILY XX 11/21/19 09:00 11/22/19 07:56 DC Miscellaneous (Unresolved Clarification Entry) SEE LABEL COMMENTS DAILY XX 11/22/19 09:00 11/22/19 09:36 DC Non-Formulary Medication ( See Comment Field Below ) REMOVE LIDODERM PATCH DAILY@21 XX 11/09/19 21:00 11/09/19 16:19 DC Non-Formulary Medication ( See Comment Field Below ) REMOVE LIDODERM PATCH DAILY@ XX 11/19/19 21:00 11/23/19 20:37 Nystatin (Mycostatin Powder, Nystop) apply to groin BID TOP 11/09/19 21:00 11/24/19 09:00 Ondansetron HCl (Zofran) 4 mg Q6HP PRN PO NAUSEA 11/09/19 15:30 11/18/19 21:20 Piperacillin Sod/ Tazobactam Sod 2.25 gm/Dextrose 50 ml @ 100 mls/hr Q8H IV 11/09/19 17:00 11/10/19 17:29 DC 11/10/19 18:15 Simethicone (Mylicon) 80 mg QIDP PRN PO BLOATING 11/09/19 15:30 11/11/19 16:36 DC Simethicone (Mylicon) 80 mg TID PO 11/11/19 16:00 11/24/19 09:00 CLARK AHUJA MD Nov 24, 2019 11:43
[2019-11-24 14:00] VITALS: BP 121/56
[2019-11-24 21:00] VITALS: BP 124/58
[2019-11-24] MEDS: ACETAMINOPHEN TAB 650MG DOSE (2X325MG) PO PRN (21:46)
[2019-11-24] MEDS: FLUoxetine 20 MG CAP PO SCH (21:46)
[2019-11-24] MEDS: **NOTE PATIENT COMMENT** MISC XX SCH (21:47)
[2019-11-25] MEDS: REMEDY PHYTOPLEX Z-GUARD PASTE 113GM TUBE (FROM STOREROOM PRODUCT) TOP SCH ×3 (02:24→07:59)
[2019-11-25 04:39] VITALS: BP 100/51
[2019-11-25 05:52] VITALS: BP 130/60
[2019-11-25] MEDS: IPRATROPIUM 0.5MG/ALBUTEROL 2.5MG INH SOL UD 3ML (DUONEB)(J7620) NEB SCH ×2 (07:33→11:36)
[2019-11-25 07:59] VITALS: BP 130/60
[2019-11-25] MEDS: METOPROLOL SUCC (TopROL XL) 100MG *XL* TAB PO SCH (07:59)
[2019-11-25] MEDS: NYSTATIN 100,000 UNITS/GM TOPICAL PWD 15 GM TOP SCH (07:59)
[2019-11-25] MEDS: SIMETHICONE 80 MG CHEW TAB PO SCH (07:59)
[2019-11-25] MEDS: LACTOBACILLUS ACIDOPHILUS CAP (BACID) PO SCH ×2 (07:59→12:27)
[2019-11-25] MEDS: APIXABAN 5 MG TAB (ELIQUIS) PO SCH (08:00)
[2019-11-25] MEDS: CALCIUM ACETATE 667 MG GELCAP PO SCH ×2 (08:00→12:27)
[2019-11-25] MEDS: LIDOCAINE 5% (LIDODERM) PATCH TD SCH (08:00)
[2019-11-25] MEDS: guaiFENesin 200 MG TAB PO SCH (08:18)
--- NOTE | 2019-11-25 10:09 | IPNPDOC ---
Text Note Date of Service The patient was seen on 11/25/19. NOTE At the time of my visit 8:20 AM the patient was away. I reviewed her vitals, her blood pressure seems to labile. Pending additional r eadings, may consider adding more meds for her systolic CHF. I reviewed the the reticulocyte count, and stool occult, both of which were unremarkable. I'll follow up on repeat CBC and BMP tomorrow. VS,Fishbone, I+O VS, Fishbone, I+O Vital Signs Date Time Temp Pulse Resp B/P (MAP) Pulse Ox O2 Delivery O2 Flow Rate FiO2 11/25/19 07:59 62 130/60 11/25/19 05:52 97.1 18 95 Room Air JOHNSON GOEL MD Nov 25, 2019 10:09
--- NOTE | 2019-11-25 11:01 | PMRDS ---
DATE OF ADMISSION: 11/09/2019 DATE OF DISCHARGE: 11/25/2019 CHIEF COMPLAINT/DISCHARGE DIAGNOSIS: Sepsis with encephalopathy. HISTORY OF PRESENT ILLNESS: HISTORY OF PRESENT ILLNESS: 78F pmh DM, HTN, RA, fatty liver disease, CKD who fell at home with altered mental status and presented to [facility] ED on 10-12-[address] chest showed, Left lower lobe pneumoniaCardiomegaly with large pericardial effusionGround-glass opacities in both lungs and she was admitted for hypoxic respiratory failure and metabolic encephalopathy. CT head showed, Bilateral occipital lobe chronic infarcts. She was found to be in Afib with rapid RVR, ECHO on 10-13-19 showing, LVEF of 35% with grade 2 diastolic dysfunction with a moderate to large pericardial effusion noted with some features of cardiac tamponade. She was evaluated by cardiothoracic surgeon who performed a tube pericardiostomy and pericardial window on 10-13-19 after which she was bradycardic requiring external pacing and had a left subclavian venous Cordis placement that same day. She underwent a left sided chest tube placement on 10-17-19 for pleural effusion which drained 1L of fluid. 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 During her hospital course she developed severe KAELYN on CKD and was started on dialysis after PermaCath placement on 10-28-19. She was followed by infectious disease for her pneumonia thought to be due to aspiration and maintained on a course of Zosyn and noted to have a herpetic zoster rash on her left inner thigh. She was evaluated by therapy, found to be significantly below her baseline for mobility and ADLs and deemed medically appropriate for discharge to on 11-09-19. HOSPITAL COURSE: The patient was admitted and enrolled in a comprehensive physical therapy (PT), occupational therapy (OT), speech language pathology program. She received 24-hour nursing supervision and weekly team meetings were held to discuss her progress. The patient was maintained on a strict fluid restriction in the setting of congestive heart failure (CHF) with an ejection fraction of 35% and received dialysis with close renal followup. The patient presented with a stage II sacral ulcer which eventually was healed with frequent skin checks and barrier cream administration. The patient finished a course of Zosyn for aspiration pneumonia and was started on a low-dose antidepressant with overall improvement in her participation in cognition and therapy and was deemed medically and functionally stable to return home with 24/03 care. DISCHARGE MEDICATIONS: As per instructions. FUNCTIONAL HISTORY: On discharge, the patient was modified independent for functional transfers able to ambulate 170 feet with a rolling walker, standby assist and in occupational therapy she was standby assist for lower body dressing, grooming and toileting. Thank for this referral.
--- NOTE | 2019-11-25 11:38 | IPN ---
DATE OF SERVICE: 11/25/2019 SUBJECTIVE: The patient was seen and examined at the bedside today morning during hemodialysis procedure. She is tolerating the hemodialysis procedure well. She denies any active complaints and the patient reports that she probably might get discharged today after dialysis. OBJECTIVE: Vital Signs: Temperature is 97.1 degrees Fahrenheit, blood pressure 130/60, pulse is 62, respiratory rate of 18, saturating 95% on room air. Intake and Output. There is no urine output. Recorded weight in the bed scale is 64.2 kg. PHYSICAL EXAMINATION: General: The patient is awake, alert, oriented x3, laying in bed, getting hemodialysis done. Head and Neck Exam: Extraocular muscles intact. Pupils equally round and reactive to light. Mucous membranes are moist. Neck is supple. There is no jugular venous distention (JVD). Cardiovascular: S1, S2, regular rate. No edema of the bilateral lower extremities. Respiratory: Chest is clear to auscultation bilaterally. Bilateral equal air entry. No rales or rhonchi. Abdomen: Soft. Positive bowel sounds. Nontender. No organomegaly. Musculoskeletal: No clubbing or cyanosis. Pulses are 2+. 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 Power is 5/5 in all extremities. LAB REVIEW: CBC showed WBC 12.5 and hemoglobin 10.5 and that is from yesterday. BMP done yesterday showed sodium 136, potassium 3.9, chloride 99, bicarb 28, BUN 22, creatinine 2.3. CURRENT INPATIENT MEDICATIONS: The patient's medications were all reviewed by me. There is no change in the medications today as compared with yesterday. ASSESSMENT/PLAN: 1. End-stage renal disease. The patient is still dialysis dependent. Today, she is being dialyzed. Ultrafiltration goal will be around 1 liter as tolerated by her blood pressure. 2. Anemia in end-stage renal disease. Hemoglobin level is stable and improving. Continue current dose of Aranesp. 3. Chronic combined systolic and diastolic congestive heart failure. Volume status is being optimized with dialysis. No evidence of edema at this time. 4. Disposition. The patient is optimized from a nephrology standpoint to be discharged home. She will be followed up as outpatient at dialysis center.
[2019-11-25] MEDS ORDERED: HEPARIN 1,000 UNITS/ML 10ML VIAL (FOR RADIOLOGY& DIALYSIS ONLY)(J1644-10) XX ONE (12:00)
[2019-11-25] MEDS ORDERED: HEPARIN 1,000 UNITS/ML 10ML VIAL (FOR RADIOLOGY& DIALYSIS ONLY)(J1644-10) IV ONE (12:00)
== END 2019-11-25 13:40 | disposition home health service (06) | DRG 555 ==
LOC: M PM&R 13:51
PROVIDERS: ADMIT Physical Medicine & Rehabilitation; ATTEND Physical Medicine & Rehabilitation
DX: M62.81 Muscle weakness (generalized) (principal); J18.9 Pneumonia, unspecified organism; N18.6 End stage renal disease; N17.9 Acute kidney failure, unspecified; E87.1 Hypo-osmolality and hyponatremia; E46 Unspecified protein-calorie malnutrition; I50.20 Unspecified systolic (congestive) heart failure; I13.2 Hypertensive heart and chronic kidney disease with heart failure and with stage 5 chronic kidney disease, or end stage renal disease; R26.89 Other abnormalities of gait and mobility; Z79.4 Long term (current) use of insulin; Z79.01 Long term (current) use of anticoagulants; Z79.899 Other long term (current) drug therapy; Z99.2 Dependence on renal dialysis; D63.1 Anemia in chronic kidney disease; I48.0 Paroxysmal atrial fibrillation; Z95.0 Presence of cardiac pacemaker; I49.5 Sick sinus syndrome; E11.9 Type 2 diabetes mellitus without complications; M06.9 Rheumatoid arthritis, unspecified; I25.10 Atherosclerotic heart disease of native coronary artery without angina pectoris; R15.9 Full incontinence of feces; D72.829 Elevated white blood cell count, unspecified; L89.152 Pressure ulcer of sacral region, stage 2

== ENCOUNTER 2019-12-09 07:10 | Inpatient (IN) | payer MEDICARE ==
[~2019-12-09] VITALS: Ht 152.4 cm; Wt 67.7 kg
[~2019-12-09 07:10] MED LIST changes: +ACET1TAB55 PO; +CALC1CAP PO; +ELIQ5TAB PO; +FLUO20CA22 PO; +INSUHUMDS SC; +LIDO5TD TD; +METO1TAB33 PO; +NYST10006 TOP; +Petrolatum,White TOP; +RISATAB3 PO; +SIME80TA PO; +ZOSY1SOL4 IV
[2019-12-09] MEDS ORDERED: D3-5CAP PO (07:20)
[2019-12-09] MEDS ORDERED: [UNRECOGNIZED DRUG - CODE] (07:20)
[2019-12-09] MEDS ORDERED: MI-A80CH PO (07:20)
[2019-12-09 08:11] LABS: BASO # 0.2 10^3/uL (0.0-0.2); BASO % 1.5 % (0.0-1.0); EOS # 0.2 10^3/uL (0.0-0.5); EOS % 1.5 % (0.0-3.0); HEMATOCRIT 31.8 % (36.0-47.0); HEMOGLOBIN 9.6 g/dl (12.0-15.5); LYMPH % 13.6 % (24.0-44.0); MEAN CORPUSCULAR HEMOGLOBIN 27.4 pg (27.0-33.0); MEAN CORPUSCULAR HGB CONC 30.2 g/dl (32.0-36.5); MEAN CORPUSCULAR VOLUME 90.6 fl (80.0-96.0); MONO % 7.1 % (0.0-5.0); NEUTROPHILS # 10.9 10^3/uL (1.5-8.5); NEUTROPHILS % 75.1 % (36.0-66.0); PLATELET COUNT, AUTOMATED 500 10^3/uL (150-450); RED BLOOD COUNT 3.51 10^6/uL (4.00-5.40); WHITE BLOOD COUNT 14.5 10^3/uL (4.0-10.0)
--- NOTE | 2019-12-09 08:13 | REP ---
PORTABLE CHEST X-RAY: Single view. HISTORY: Dyspnea and cough. COMPARISON STUDY: November 05, 2019. FINDINGS: Monitoring electrodes overlie the chest. Bipolar pacemaker is seen in place. Right internal jugular central venous line is noted. Its tip is in the expected location of the superior vena cava. Moderate cardiomegaly is again observed. There is pleural thickening and some blunting of the pleural angle on the left. This is unchanged from November 05, 2019 study. Pulmonary vasculature is somewhat cephalized. No new infiltrate. IMPRESSION: Cardiomegaly. Chronic pleuroparenchymal changes at the left base. Pacemaker and central venous line. No new infiltrate. Electronically Signed by Nicolas Barboza MD 12/09/2019 10:05 A
[2019-12-09 09:10] LABS: ALBUMIN 2.6 GM/DL (3.2-5.2); BILIRUBIN,DIRECT 0.2 MG/DL (0.0-0.2); BILIRUBIN,TOTAL 0.5 MG/DL (0.2-1.0); CALCIUM LEVEL 8.2 MG/DL (8.8-10.2); CK-MB VALUE MASS 1.2 NG/ML (<3.6); CREATININE FOR GFR 1.7 MG/DL (0.55-1.30); MB/CK RELATIVE INDEX 5.71 (< OR =4); POTASSIUM SERUM 4.2 MEQ/L (3.5-5.1); THYROID STIMULATING HORMONE 0.654 uIU/ML (0.358-3.740); THYROXINE (T4) 8.9 UG/DL (4.5-12.0); TOTAL PROTEIN 7.1 GM/DL (6.4-8.2); TROPONIN I 0.03 NG/ML (< 0.10)
--- NOTE | 2019-12-09 10:27 | REP ---
CT BRAIN WITHOUT CONTRAST: HISTORY: Altered mental status. Comparison CT brain study October 31, 2019. CT FINDINGS: Preliminary digital shellfish sorter radiograph is unremarkable. The maxilla is edentulous. Bone window settings demonstrate an intact bony calvarium. There is vascular calcification in the distal carotid arteries bilaterally. Visualized paranasal sinuses are clear. No intraorbital abnormality is appreciated. There is generalized volume loss on soft-tissue window settings. Old encephalomalacia in the occipital lobes bilaterally is seen indicating previous bilateral occipital lobe infarctions. This is unchanged from October 31, 2019. No acute infarction is evident. There is no evidence of intracranial hemorrhage. No mass, extra-axial fluid collection or midline shift is seen. IMPRESSION: Old bilateral occipital lobe infarct pattern again seen. Generalized atrophy and vascular calcification. No acute intracranial abnormality. Electronically Signed by Nicolas Barboza MD 12/09/2019 11:41 A
[2019-12-09] MEDS ORDERED: RISATAB3 PO (11:04)
[2019-12-09] MEDS ORDERED: FLUO20CA22 PO (11:04)
[2019-12-09] MEDS ORDERED: METO1TAB33 PO (11:04)
[2019-12-09] MEDS ORDERED: ELIQ5TAB PO (11:04)
[2019-12-09] MEDS ORDERED: CALC667T2 PO (11:04)
[2019-12-09] MEDS ORDERED: ACET325C5 PO (11:04)
--- NOTE | 2019-12-09 11:55 | HPEPDOC ---
[facility] Medical History & Physical Date of Admission Dec 09, 2019 Date of Service: Dec 09, 2019 Attending Physician: VISH SIMMONS MD History and Physical CHIEF COMPLAINT: Dizzy spells HISTORY OF PRESENT ILLNESS: 79-year-old female with an extensive past medical history including rheumatoid arthritis, diabetes mellitus, hypertension, congestive heart failure, atrial fibrillation, CVA, pericardial effusion status post pericardial window with subsequent cardiac arrest requiring CPR and mechanical ventilation, end-stage renal disease on hemodialysis and pleural effusions presents from home with dizzy spells. Patient didn't even want to come to the hospital, reports her son brought her in because she "she needed to be here". She reports having dyspnea on exertion along with dizziness when she stands up and starts ambulating, denies syncope, short lasting, self resolving, as an ongoing for the past few days/weeks, no other associated symptoms. Of note, patient appears to be a very poor historian as she doesn't recall when she had her last hemodialysis. She denies any chest pain, nausea, vomiting, abdominal pain or diarrhea. 10 point review of systems negative except for above PAST MEDICAL HISTORY: 1. Congestive heart failure. 2. Rheumatoid arthritis. 3. Diabetes mellitus. 4. Hypertension. 5. Atrial fibrillation. 6. CVA. 7. End-stage renal disease PAST SURGICAL HISTORY: 1. C-sections. 2. Pericardial window. 3. Cholecystectomy. SOCIAL HISTORY: Previous smoker. Denies alcohol use. Denies drug use FAMILY HISTORY: Negative for malignancy ALLERGIES: Please see below. HOME MEDICATIONS: Please see below. PHYSICAL EXAMINATION: VITAL SIGNS: Please see below. GENERAL: No distress HEENT: Normocephalic, atraumatic, moist mucous membranes NECK: Supple CARDIOVASCULAR EXAMINATION: S1, S2, systolic murmur RESPIRATORY EXAMINATION: Diminished in the bases, left greater than right, s cattered rhonchi, no wheezing ABDOMINAL EXAMINATION: Soft, nontender, nondistended, positive bowel sounds EXTREMITIES: Range of motion intact SKIN: No rash NEUROLOGICAL EXAMINATION: No focal deficits PSYCHIATRIC EXAMINATION: Calm and cooperative LABORATORY DATA: See below. IMAGING: CT head negative for acute pathology, chest x-ray showing left pleural effusion MICROBIOLOGY: Please see below. ASSESSMENT: 79-year-old female with an extensive past medical history is of being admitted for dizziness and congestive heart failure. PLAN: 1. Dizziness. Symptoms concerning for orthostatic hypotension, will check orthostatic blood pressures, can also be related to poor cardiac function, along with persistent large pleural effusion. Patient has significant wall motion abnormalities, reduced ejection fraction and significantly elevated right ventricular systolic pressure, which can all be contributing to her current presentation. 2. Systolic Congestive heart failure. Significantly elevated BNP, which can be falsely elevated due to poor renal function, but she does appear volume overloaded and has not tolerated extensive fluid removal during hemodialysis. We'll attempt to remove fluid during hemodialysis as tolerated. 3. End-stage renal disease. Usual hemodialysis on Friday, Friday, Friday, Nephrology consulted for hemodialysis, continue home regimen. 4. Atrial fibrillation. Continue Eliquis for anticoagulation, has pacemaker, continue metoprolol. 5. Diabetes mellitus. Continue sliding scale insulin coverage with meals and at bedtime. 6. Hypertension. Continue metoprolol 7. History of CVA. Not on statin based on med rec, will start atorvastatin 20 mg daily. DVT prophylaxis: on Eliquis GI prophylaxis: Not needed at this time Vital Signs Vital Signs Date Time Temp Pulse Resp B/P (MAP) Pulse Ox O2 Delivery O2 Flow Rate FiO2 12/09/19 10:31 60 92 12/09/19 10:16 163/68 (99) 12/09/19 09:30 98.6 Room Air 12/09/19 07:11 18 Laboratory Data Labs 24H Laboratory Tests 2 12/09/19 07:55: Immature Granulocyte % (Auto) 1.2, Neutrophils (%) (Auto) 75.1H, Lymphocytes (%) (Auto) 13.6L, Monocytes (%) (Auto) 7.1H, Eosinophils (%) (Auto) 1.5, Basophils (%) (Auto) 1.5H, Neutrophils # (Auto) 10.9H, Lymphocytes # (Auto) 2.0, Monocytes # (Auto) 1.0H, Eosinophils # (Auto) 0.2, Basophils # (Auto) 0.2, Nucleated Red Blood Cells % (auto) 0.2H, Anion Gap 7L, Glomerular Filtration Rate 31.0L, Lactic Acid Level 1.4, Calcium Level 8.2L, Total Bilirubin 0.5, Direct Bilirubin 0.2, Aspartate Amino Transf (AST/SGOT) 11, Alanine Aminotransferase (ALT/SGPT) 26, Alkaline Phosphatase 105, Total Creatine Kinase 21L, Creatine Kinase MB 1.2, Creatine Kinase MB Relative Index 5.71H, Troponin I 0.03, OK-[id number]-C-Type Natriuretic Peptide [id number], Total Protein 7.1, Albumin 2.6L, Albumin/Globulin Ratio 0.58L, Thyroid Stimulating Hormone (TSH) 0.654, Thyroxine (T4) 8.9 CBC/BMP Laboratory Tests 12/09/19 07:55 Microbiology Microbiology 12/09/19 Blood Culture, Received Pending 12/09/19 Blood Culture, Received Pending Home Medications Scheduled Apixaban (Eliquis) 5 Mg Tablet, 5 MG PO BID Calcium Acetate (Calcium Acetate) 667 Mg Tablet, 667 MG PO WM Cholecalciferol (Vitamin D3) (D3-50) 1,250 Mcg Capsule, 1,250 MCG PO QWEEK SUNDAYS Fluoxetine Hcl (Fluoxetine HCl) 20 Mg Capsule, 20 MG PO QHS L.acidoph/L.bulg/B.bif/S.therm (Mandie-Bid Caplet) 1 Each Tablet, 1 TAB PO DAILY Metoprolol Succinate (Metoprolol Succinate) 100 Mg Tab.er.24h, 100 MG PO DAILY Simethicone (Mi-Acid) 80 Mg Tab.chew, 80 MG PO PC Scheduled PRN Acetaminophen (Tylenol) 325 Mg Capsule, 650 MG PO QID PRN for PAIN Allergies Coded Allergies: No Known Allergies (Unverified , 10/15/18) A-FIB/CHADSVASC A-FIB History Current/History of A-Fib/PAF?: Yes Current PO Anticoag Therapy: Yes VISH SIMMONS MD Dec 09, 2019 11:55
[2019-12-09] MEDS ORDERED: GLUCAGON FOR INJ 1 MG VIAL (J1610) SC PRN (12:00)
[2019-12-09] MEDS ORDERED: GLUCOSE 4 GM CHEW TABLET PO PRN (12:00)
[2019-12-09] MEDS ORDERED: DEXTROSE 50% 50 ML SYRINGE IV PRN (12:00)
[2019-12-09 12:55] VITALS: BP 165/94
[2019-12-09] MEDS: ATORVASTATIN 20 MG TAB PO SCH (13:37)
[2019-12-09] MEDS: SIMETHICONE 80 MG CHEW TAB PO SCH ×2 (13:37→18:07)
[2019-12-09] MEDS: METOPROLOL SUCC (TopROL XL) 100MG *XL* TAB PO SCH (13:37)
[2019-12-09] MEDS: CALCIUM ACETATE 667 MG GELCAP PO SCH ×2 (13:37→18:07)
[2019-12-09] MEDS: HumaLOG INSULIN (NovoLOG) PER UNIT SC SCH ×3 (13:38→21:00)
[2019-12-09 14:00] VITALS: BP 125/56
[2019-12-09 14:04] VITALS: BP 132/52
[2019-12-09 14:08] VITALS: BP 132/95
--- NOTE | 2019-12-09 20:20 | CR ---
DATE OF CONSULTATION: 12/09/2019 REASON FOR CONSULTATION: To assist in the management of shortness of breath in this lady with end-stage renal disease. HISTORY OF PRESENT ILLNESS: Mrs. More is a 79-year-old female with extensive past medical history, including diabetes, hypertension, congestive heart failure, atrial fibrillation, recent stroke, pericardial and pleural effusions. She just recently had a very complicated hospitalization, where she required drainage of pericardial effusion and also underwent a pacemaker placement. At that time, she went into oliguric acute renal failure and has been dialysis dependent. She was dialyzed yesterday, and about 3 liters fluid was removed. The patient was brought to the emergency room this morning with complaints of feeling dizzy and also short of breath. On questioning, the patient feels that she has been short of breath for a few weeks. She does not feel that this was significantly worse than how she has been. She denies any fever or chills. She is admitted that her brain natriuretic peptide (BNP) level is quite elevated, though chest x-ray was reported as no significant evidence for pulmonary edema. The patient is due for dialysis tomorrow, and I was consulted to assess her for need for urgent dialysis. PAST MEDICAL HISTORY: Significant for: 1. Congestive heart failure. 2. Acute on chronic renal failure leading to end-stage renal disease. 3. Rheumatoid arthritis. 4. Type 2 diabetes. 5. Hypertension. 6. Atrial fibrillation. 7. History of stroke. 8. Recent history of pericardial effusion and left pleural effusion. 9. Anemia. PAST SURGICAL HISTORY: Significant for: 1. section. 2. Pericardial window. 3 Cholecystectomy. 4. She also had a pacemaker placement. PERSONAL AND SOCIAL HISTORY: The patient denies any alcohol or drug use. She is an ex-smoker. FAMILY HISTORY: Negative for end-stage renal disease. MEDICATIONS: Her current medications include: - Eliquis 5 mg twice a day - calcium acetate 667 mg with meals - vitamin D 1.2 mcg once a week - fluoxetine 20 mg daily - metoprolol 100 mg daily - Tylenol as needed ALLERGIES: No known drug allergies. REVIEW OF SYSTEMS: The patient denies any fever or chills. Ears, nose and throat are unremarkable. Cardiovascular system significant for shortness of breath. She has history of atrial fibrillation and congestive heart failure. Respiratory system is negative for hemoptysis or pleuritic type of chest pain. Gastrointestinal (GI) system is negative for nausea, vomiting or diarrhea. Genitourinary () system is significant for decreased urine output. She denies any dysuria or hematuria. Musculoskeletal system is significant for generalized weakness and arthritis. She denies any leg edema. Endocrine system is significant for type 2 diabetes and secondary hyperparathyroidism. Psychosocial system significant for depression. Hematological system is significant for anticoagulation and anemia. Skin is negative for rash or ulcers. PHYSICAL EXAMINATION: Temperature 98 degrees Fahrenheit, heart rate 60 per minute, respiratory rate 20 per minute, blood pressure 125/56 mm of mercury, and oxygen saturation 97% on 2 liters oxygen. Head is atraumatic. Neck is supple and jugular venous distention (JVD) difficult to be assessed. She has an internal jugular vein catheter on the right side without any signs of infection. She has no oral thrush or ulcers. Heart sounds are irregular in rhythm and lungs with few fine rales. Abdomen soft and nontender. Bowel sounds are normal. Extremities without any cyanosis or clubbing. Neurologically, she is seems to be grossly intact. She is able to answer questions. Skin has no rash or ulcers. LABORATORY DATA: WBC count is 14.5, hemoglobin 9.6, and hematocrit 31.8. Platelets 500,000. Sodium 140, potassium 4.2, CO2 of 28, BUN 19, and creatinine 1.7. Glucose 166, lactic acid 1.4, calcium 8.2. A BNP level 60,291 and albumin 2.6. She had a chest x-ray done in emergency room, which showed cardiomegaly and chronic changes at the left base. Pacemaker and dialysis catheter in place. No infiltrate noticed. Head CT scan showed old lacunar infarcts and bilateral occipital lobe infarcts and generalized atrophy. PROBLEMS: 1. Shortness of breath. Probably this is chronic. She is likely to have slightly decompensated congestive heart failure with elevated BNP level. On clinical exam, she has no peripheral edema and only a few basilar rales. I do not feel that an emergent dialysis is indicated, and we will certainly schedule her for dialysis tomorrow. She is oxygenating well with 2 liters oxygen and should be continued with the same. 2. End-stage renal disease. The patient is regularly dialyzed on Friday, Friday, and Friday schedule. She did complete her dialysis treatment this last evening. She will be scheduled for dialysis tomorrow. 3. Anemia. She does have anemia of chronic kidney disease. At this point, there is no emergent need for a transfusion. It is likely to improve as she does received erythropoiesis-stimulating agent (RONEL) in the outpatient dialysis clinic. 4. Dizziness. The patient did have dizzy spells, probably related to volume changes. We removed about 3 liters of fluid yesterday, which probably caused some of her symptoms. She is still slightly decompensated; however, her tolerance for aggressive fluid removal is not great at this point. We will try to remove as much fluid as she could tolerate tomorrow. Thank you for involving me in the care of Mrs. More. I will follow her along with you.
[2019-12-09] MEDS: FLUoxetine 20 MG CAP PO SCH (20:24)
[2019-12-09] MEDS: APIXABAN 5 MG TAB (ELIQUIS) PO SCH (20:24)
[2019-12-09 22:07] VITALS: BP_SYST 131; BP_SYST 133; BP_SYST 142; BP_DIAS 55; BP_DIAS 96; BP_DIAS 97
[2019-12-10 05:47] VITALS: BP 139/60
[2019-12-10] MEDS: METOPROLOL SUCC (TopROL XL) 100MG *XL* TAB PO SCH (06:33)
[2019-12-10] MEDS: CALCIUM ACETATE 667 MG GELCAP PO SCH ×3 (06:33→17:31)
[2019-12-10] MEDS: APIXABAN 5 MG TAB (ELIQUIS) PO SCH ×2 (06:34→21:24)
[2019-12-10] MEDS: ATORVASTATIN 20 MG TAB PO SCH (06:34)
[2019-12-10] MEDS: SIMETHICONE 80 MG CHEW TAB PO SCH ×3 (06:35→17:31)
[2019-12-10 06:40] VITALS: BP_SYST 129; BP_SYST 151; BP_SYST 155; BP_DIAS 55; BP_DIAS 70; BP_DIAS 74
[2019-12-10 08:28] LABS: HEMATOCRIT 32.6 % (36.0-47.0); HEMOGLOBIN 9.9 g/dl (12.0-15.5); MEAN CORPUSCULAR HEMOGLOBIN 27.8 pg (27.0-33.0); MEAN CORPUSCULAR HGB CONC 30.4 g/dl (32.0-36.5); MEAN CORPUSCULAR VOLUME 91.6 fl (80.0-96.0); PLATELET COUNT, AUTOMATED 476 10^3/uL (150-450); RED BLOOD COUNT 3.56 10^6/uL (4.00-5.40); WHITE BLOOD COUNT 12.5 10^3/uL (4.0-10.0)
[2019-12-10] MEDS: LACTOBACILLUS ACIDOPHILUS CAP (BACID) PO SCH (08:32)
[2019-12-10] MEDS: HumaLOG INSULIN (NovoLOG) PER UNIT SC SCH ×4 (08:32→21:00)
[2019-12-10 08:56] LABS: ALBUMIN 2.6 GM/DL (3.2-5.2); CALCIUM LEVEL 8.4 MG/DL (8.8-10.2); CREATININE FOR GFR 1.98 MG/DL (0.55-1.30); PHOSPHORUS LEVEL 4.1 MG/DL (2.5-4.9); POTASSIUM SERUM 4.5 MEQ/L (3.5-5.1)
[2019-12-10] MEDS ORDERED: HEPARIN 1,000 UNITS/ML 10ML VIAL (FOR RADIOLOGY& DIALYSIS ONLY)(J1644-10) IV ONE (11:00)
[2019-12-10] MEDS ORDERED: HEPARIN 1,000 UNITS/ML 10ML VIAL (FOR RADIOLOGY& DIALYSIS ONLY)(J1644-10) XX ONE (11:00)
--- NOTE | 2019-12-10 12:02 | IPN ---
DATE OF VISIT: 12/10/2019 Mrs. More is seen this morning on her bedside. She is currently being dialyzed. She feels better and reports no further dizziness since yesterday. She is still using oxygen and denies any chest pain or hemoptysis. She has no nausea or vomiting. On physical exam, temperature 98.0 degrees Fahrenheit, heart rate 62 per minute and respiratory rate 20 per minute. Blood pressure 139/60 mmHg and oxygen saturation 97% on 2 liters oxygen. Head is atraumatic. Neck supple and jugular venous distention (JVD) somewhat difficult to be assessed. PermaCath is present in right internal jugular vein. Heart sounds are regular and lungs with slightly diminished breath sounds at bases. Abdomen soft and nontender. Bowel sounds are normal. Extremities without any cyanosis or clubbing. Neurologically, she is awake, alert and oriented times three. Today's labs show WBC count 12.5, hemoglobin 9.9 and hematocrit 32.6. Platelets 476. Sodium 141, potassium 4.5, CO2 of 29, BUN 29 and creatinine 1.98. Glucose 168 and calcium 8.4. PROBLEMS: 1. Shortness of breath. She is still requiring 2 liters of oxygen. We are going to remove about 3 liters of fluid as tolerated. I hope that her volume status will improve and her dyspnea will also improved. 2. End-stage renal disease. Patient is currently being dialyzed and she is tolerating dialysis treatment very well. She will complete her full dialysis today. 3. Anemia. Her anemia is stable and does not need any urgent intervention. 4. Leukocytosis. Patient remains afebrile with slight improvement in her white blood cell count. She is currently not on any antibiotic. All in all from a renal standpoint, Mrs. More seems to be doing well and remains stable. We will continue to follow her as long as she is here in the hospital.
--- NOTE | 2019-12-10 12:24 | ECGEPIP ---
[facility] - ED Test Date: 2019-12-09 Pat Name: MINA TA Department: Room: - Gender: Female Country Director: Benjamín MARC : 1940 Requested By: Timoteo Espana Order Number: [id number] Reading MD: Liza Wall Measurements Intervals [place] Rate: 60 P: 107 [place]: 163 QRS: 112 QRSD: 146 T: 245 QT: 503 QTc: 503 Interpretive Statements ELECTRONIC ATRIAL PACEMAKER MARKED RIGHT AXIS DEVIATION INTRAVENTRICULAR CONDUCTION DELAY DECREASED RATE/ECTOPY 10/29/19 Electronically Signed on 12-10-2019 12:23:40 EDT by Liza Wall
[2019-12-10 14:00] VITALS: BP_SYST 121; BP_SYST 140; BP_SYST 142; BP_DIAS 56; BP_DIAS 58; BP_DIAS 66
[2019-12-10] MEDS ORDERED: ATOR1TAB21 PO (15:36)
--- NOTE | 2019-12-10 15:41 | IPNPDOC ---
Date Seen The patient was seen on 12/10/19. Progress Note SUBJECTIVE: 79-year-old female with an extensive past medical history including rheumatoid arthritis, diabetes mellitus, hypertension, congestive heart failure, atrial fibrillation, CVA, pericardial effusion status post pericardial window with subsequent cardiac arrest requiring CPR and mechanical ventilation, end- stage renal disease on hemodialysis and pleural effusions was admitted for dyspn ea, likely due to underlying cardiac disease and fluid buildup from decreased removal during dialysis. Patient reports feeling well today, having mild dyspnea with exertion, no other complaints. She is scheduled for him dialysis later today. 10 point review of systems negative except for above PHYSICAL EXAMINATION: VITAL SIGNS: Please see below. GENERAL: No distress HEENT: Normocephalic, atraumatic, moist mucous membranes NECK: Supple CARDIOVASCULAR EXAMINATION: S1, S2, systolic murmur RESPIRATORY EXAMINATION: Diminished in the bases, left greater than right, scattered rhonchi, no wheezing ABDOMINAL EXAMINATION: Soft, nontender, nondistended, positive bowel sounds EXTREMITIES: Range of motion intact SKIN: No rash NEUROLOGICAL EXAMINATION: No focal deficits PSYCHIATRIC EXAMINATION: Calm and cooperative LABORATORY DATA: See below. MICROBIOLOGY: Please see below. ASSESSMENT: 79-year-old female with an extensive past medical history is of being admitted for dizziness and congestive heart failure. PLAN: 1. Dyspnea/fluid overload/systolic congestive heart failure. Likely chronic, multifactorial, underlying heart disease versus end-stage renal disease and multiple other comorbidities, will have fluid removed during hemodialysis today, PT eval. 3. End-stage renal disease. Continue home regimen, hemodialysis as per nephrology. 4. Atrial fibrillation. Continue Eliquis for anticoagulation, has pacemaker, continue metoprolol. 5. Diabetes mellitus. Continue sliding scale insulin coverage with meals and at bedtime. 6. Hypertension. Continue metoprolol 7. History of CVA. Continue atorvastatin 20 mg daily. DVT prophylaxis: on Eliquis GI prophylaxis: Not needed at this time VS, I&O, 24H, [place]urcio Vital Signs/I&O Vital Signs Date Time Temp Pulse Resp B/P (MAP) Pulse Ox O2 Delivery O2 Flow Rate FiO2 12/10/19 14:00 97.9 60 18 140/66 (90) 95 Nasal Cannula 2.0 I&O- Last 24 Hours up to 6 AM 12/10/19 06:00 Intake Total 1080 ml Output Total 201 ml Balance 879 ml Laboratory Data 24H LABS Laboratory Tests 2 12/09/19 16:29: Bedside Glucose (Misc Panel) 135H 12/09/19 20:35: Bedside Glucose (Misc Panel) 220H 12/10/19 07:16: Bedside Glucose (Misc Panel) 155H 12/10/19 08:07: Nucleated Red Blood Cells % (auto) 0.0, Anion Gap 4L, Glomerular Filtration Rate 26.0L, Calcium Level 8.4L, Phosphorus Level 4.1, Albumin 2.6L 12/10/19 14:15: Bedside Glucose (Misc Panel) 93 CBC/BMP Laboratory Tests 12/10/19 08:07 Microbiology Microbiology 12/09/19 Blood Culture - Preliminary, Resulted No growth after 24 hours . All specim... 12/09/19 Blood Culture - Preliminary, Resulted No growth after 24 hours . All specim... VISH SIMMONS MD Dec 10, 2019 15:41
[2019-12-10] MEDS: FLUoxetine 20 MG CAP PO SCH (21:24)
[2019-12-10 21:52] VITALS: BP_SYST 125; BP_SYST 128; BP_SYST 132; BP_DIAS 51; BP_DIAS 55; BP_DIAS 56
[2019-12-10 22:00] VITALS: BP 121/53
[2019-12-10] MEDS: NYSTATIN 100,000 UNITS/GM TOPICAL PWD 15 GM TOP SCH (23:52)
[2019-12-11 06:00] VITALS: BP 140/56
[2019-12-11 06:48] VITALS: BP_SYST 109; BP_SYST 112; BP_SYST 150; BP_DIAS 71; BP_DIAS 73
[2019-12-11] MEDS: HumaLOG INSULIN (NovoLOG) PER UNIT SC SCH ×2 (08:24→12:26)
[2019-12-11] MEDS: ATORVASTATIN 20 MG TAB PO SCH (08:24)
[2019-12-11] MEDS: SIMETHICONE 80 MG CHEW TAB PO SCH ×2 (08:24→12:26)
[2019-12-11] MEDS: LACTOBACILLUS ACIDOPHILUS CAP (BACID) PO SCH (08:25)
[2019-12-11] MEDS: APIXABAN 5 MG TAB (ELIQUIS) PO SCH (08:25)
[2019-12-11] MEDS: CALCIUM ACETATE 667 MG GELCAP PO SCH ×2 (08:25→12:26)
[2019-12-11 08:27] VITALS: BP 117/67
[2019-12-11] MEDS: NYSTATIN 100,000 UNITS/GM TOPICAL PWD 15 GM TOP SCH (08:27)
[2019-12-11] MEDS: METOPROLOL SUCC (TopROL XL) 100MG *XL* TAB PO SCH (08:27)
[2019-12-11 14:00] VITALS: BP 119/64
--- NOTE | 2019-12-11 15:07 | DS.PDOC ---
Discharge Summary General Date of Admission Dec 09, 2019 at 12:50 Date of Discharge 12/11/19 Attending Physician: VISH SIMMONS MD Discharge Summary PROCEDURES PERFORMED DURING STAY: None. ADMITTING DIAGNOSES: 1. Acute on chronic systolic congestive heart failure, pleural effusion. DISCHARGE DIAGNOSES: 1. Acute on chronic systolic congestive heart failure, pleural effusion. COMPLICATIONS/CHIEF COMPLAINT: Atrial Fibrillation Pleural Effusion. HISTORY OF PRESENT ILLNESS: 79-year-old female with multiple medical co morbidities, was admitted for dyspnea and fluid overload, which was multifactorial in nature, due to combination of systolic congestive heart failure, left pleural effusion, end-stage renal disease, among other issues. Patient underwent removal of fluid via hemodialysis with fluid restriction and good clinical improvement. Patient was initially requiring supplemental oxygen, which had been titrated off prior to discharge. Patient was evaluated by physical therapy and cleared for discharge home. Patient will be going home and living with her son. Patient is hemodynamically stable for discharge at this time with outpatient follow-up. HOSPITAL COURSE: As above. DISCHARGE MEDICATIONS: Please see below. ALLERGIES: Please see below. PHYSICAL EXAMINATION: VITAL SIGNS: Please see below. GENERAL: No distress HEENT: Normocephalic, atraumatic, moist mucous membranes NECK: Supple CARDIOVASCULAR EXAMINATION: S1, S2, systolic murmur RESPIRATORY EXAMINATION: Diminished in the bases, left greater than right, scattered rhonchi, no wheezing ABDOMINAL EXAMINATION: Soft, nontender, nondistended, positive bowel sounds EXTREMITIES: Range of motion intact SKIN: No rash NEUROLOGICAL EXAMINATION: No focal deficits PSYCHIATRIC EXAMINATION: Calm and cooperative LABORATORY DATA: Please see below. IMAGING: Chest x-ray showing left pleural effusion PROGNOSIS: Guarded ACTIVITY: As tolerated. 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 DISCHARGE INSTRUCTIONS: 1. As above. DISCHARGE CONDITION: Stable. TIME SPENT ON DISCHARGE: Greater than 34 minutes. Vital Signs/I&Os Vital Signs Date Time Temp Pulse Resp B/P (MAP) Pulse Ox O2 Delivery O2 Flow Rate FiO2 12/11/19 14:00 97.5 60 16 119/64 (82) 94 Room Air 12/11/19 06:00 2.0 I&O- Last 24 Hours up to 6 AM 12/11/19 06:00 Intake Total 780 ml Output Total 3000 ml Balance -2220 ml Laboratory Data Labs 24H Laboratory Tests 2 12/10/19 16:35: Bedside Glucose (Misc Panel) 192H 12/10/19 20:10: Bedside Glucose (Misc Panel) 111H 12/11/19 05:53: Bedside Glucose (Misc Panel) 119H 12/11/19 12:04: Bedside Glucose (Misc Panel) 177H FSBS Laboratory Tests Test 12/10/19 16:35 12/10/19 20:10 12/11/19 05:53 12/11/19 12:04 Range/Units Bedside Glucose (Misc Panel) 192 111 119 177 83-110 MG/DL Microbiology Microbiology 12/09/19 Blood Culture - Preliminary, Resulted No Growth after 48 hours. All Specime... 12/09/19 Blood Culture - Preliminary, Resulted No Growth after 48 hours. All Specime... Discharge Medications Scheduled Apixaban (Eliquis) 5 Mg Tablet, 5 MG PO BID, (Reported) Atorvastatin Calcium (Atorvastatin Calcium) 20 Mg Tablet, 20 MG PO DAILY Calcium Acetate (Calcium Acetate) 667 Mg Tablet, 667 MG PO WM, (Reported) Cholecalciferol (Vitamin D3) (D3-50) 1,250 Mcg Capsule, 1,250 MCG PO QWEEK, (Reported) SUNDAYS Fluoxetine Hcl (Fluoxetine HCl) 20 Mg Capsule, 20 MG PO QHS, (Reported) L.acidoph/L.bulg/B.bif/S.therm (Mandie-Bid Caplet) 1 Each Tablet, 1 TAB PO DAILY, (Reported) Metoprolol Succinate (Metoprolol Succinate) 100 Mg Tab.er.24h, 100 MG PO DAILY, (Reported) Simethicone (Mi-Acid) 80 Mg Tab.chew, 80 MG PO PC, (Reported) Scheduled PRN Acetaminophen (Tylenol) 325 Mg Capsule, 650 MG PO QID PRN for PAIN, (Reported) Allergies Coded Allergies: No Known Allergies (Unverified , 10/15/18) VISH SIMMONS MD Dec 11, 2019 15:07
--- NOTE | 2019-12-11 18:23 | IPN ---
DATE: 12/11/2019 SUBJECTIVE: The patient was seen and examined the bedside today morning. She is afebrile, hemodynamically stable. She was dialyzed yesterday. Three liters of fluid was removed. She reports that shortness of breath is getting better. She still reports some dizziness. OBJECTIVE: Vital signs: Temperature is 97.5 degrees Fahrenheit, blood pressure 119/64, pulse is 60, respiratory rate of 16, saturating 94% on room air. Intake and output: There is no urine output recorded. Ultrafiltration with hemodialysis was 3 liters. Weight in the bed scale is not available. PHYSICAL EXAMINATION: GENERAL: The patient is awake, alert, oriented times two, sitting up in the sofa in no apparent distress. HEAD AND NECK: Extraocular muscles intact. Pupils equally round and reactive to light. Mucous membranes are moist. Neck is supple. There is no jugular venous distention (JVD). She has a right internal jugular (IJ) tunneled hemodialysis catheter. CARDIOVASCULAR: S1, S2, regular rate. Trace edema of the bilateral lower extremities. RESPIRATORY: Chest is clear to auscultation bilaterally. Bilateral equal air entry. No rales or rhonchi. ABDOMEN: Soft. Positive bowel sounds. Nontender. No hepatosplenomegaly. MUSCULOSKELETAL: No clubbing or cyanosis. Pulses are 2+. CENTRAL NERVOUS SYSTEM: No focal deficit. Power is 5/5 in bilateral upper extremities. LABORATORY REVIEW: There are no new labs available from today as compared with yesterday. CURRENT INPATIENT MEDICATIONS: The patient's medications were all reviewed by me. There is no change in the medications today as compared with yesterday. ASSESSMENT AND PLAN: 1. End-stage renal disease. The patient was dialyzed the yesterday. Three liters of fluid was removed. Volume status is better optimized. 2. Acute decompensated congestive heart failure. As mentioned above, after removal of 3 liters of fluid, her shortness of breath is better, and she is not requiring any oxygen at this time. 3. Anemia and end-stage renal disease. Hemoglobin level is 9.9. Anemia is being managed as per outpatient dialysis protocol. 4. Atrial fibrillation. Heart rate is controlled. Continue current dose of metoprolol XL 100 mg by mouth daily. DISPOSITION: The patient is optimized from nephrology standpoint to be discharged home. She will be followed up by nephrology as outpatient.
== END 2019-12-11 15:04 | disposition home or self-care (01) | DRG 291 ==
LOC: M ED 07:10 → ENRESERVDT 12:18 → ENRESERVTM 12:18 → M MSPAV 12:50 → M ED 12:59
PROVIDERS: ADMIT Internal Medicine; ATTEND Internal Medicine
DX: I13.2 Hypertensive heart and chronic kidney disease with heart failure and with stage 5 chronic kidney disease, or end stage renal disease (principal); I50.21 Acute systolic (congestive) heart failure; N18.6 End stage renal disease; I48.91 Unspecified atrial fibrillation; Z79.899 Other long term (current) drug therapy; E11.9 Type 2 diabetes mellitus without complications; Z86.73 Personal history of transient ischemic attack (TIA), and cerebral infarction without residual deficits; M06.9 Rheumatoid arthritis, unspecified; Z87.891 Personal history of nicotine dependence; Z95.0 Presence of cardiac pacemaker; Z99.2 Dependence on renal dialysis; D63.1 Anemia in chronic kidney disease; D72.829 Elevated white blood cell count, unspecified

== ENCOUNTER 2019-12-19 17:18 | Inpatient (IN) | payer MEDICARE ==
[~2019-12-19] VITALS: Ht 152.4 cm; Wt 64.2 kg
[~2019-12-19 17:18] MED LIST changes: +ACET325C5 PO; +ATOR1TAB21 PO; +CALC667T2 PO; +D3-5CAP PO; +MI-A80CH PO; +[UNRECOGNIZED DRUG - CODE]
[2019-12-19 17:53] LABS: ABG BASE EXCESS -1.7 (-2.0-2.0); ABG HCO3 22.6 MEQ/L (22.0-26.0); ABG O2 SATURATION 96.3 % (95.0-99.0); ABG PARTIAL PRESSURE CO2 36.6 mmHg (35.0-45.0); ABG PARTIAL PRESSURE O2 83.8 mmHg (75.0-100.0); ABG TOTAL CO2 23.7 MEQ/L (23.0-31.0); ABG pH (ARTERIAL) 7.408 UNITS (7.350-7.450)
[2019-12-19 18:19] LABS: BASO # 0.1 10^3/uL (0.0-0.2); BASO % 0.9 % (0.0-1.0); EOS # 0.2 10^3/uL (0.0-0.5); EOS % 1.3 % (0.0-3.0); HEMOGLOBIN 10.6 g/dl (12.0-15.5); LYMPH # 1.9 10^3/uL (1.5-5.0); LYMPH % 11.8 % (24.0-44.0); MEAN CORPUSCULAR HEMOGLOBIN 27.6 pg (27.0-33.0); MEAN CORPUSCULAR HGB CONC 30.3 g/dl (32.0-36.5); MEAN CORPUSCULAR VOLUME 91.1 fl (80.0-96.0); NEUTROPHILS # 13.1 10^3/uL (1.5-8.5); NEUTROPHILS % 79.6 % (36.0-66.0); PLATELET COUNT, AUTOMATED 413 10^3/uL (150-450); RED BLOOD COUNT 3.84 10^6/uL (4.00-5.40); WHITE BLOOD COUNT 16.5 10^3/uL (4.0-10.0)
[2019-12-19] MEDS ORDERED: METO200T28 PO (18:20)
[2019-12-19 18:31] LABS: INR 1.47; PROTHROMBIN TIME 17.6 SECONDS (11.8-14.0)
--- NOTE | 2019-12-19 18:34 | ECGEPIP ---
[facility] - ED Test Date: 2019-12-19 Pat Name: MINA TA Department: Room: - Gender: Female Commutator V Ring Assembler: stephanie : 1940 Requested By: RC Espana PA-C Order Number: [id number] Reading MD: Malena Cano Measurements Intervals [place] Rate: 60 P: 104 [place]: 167 QRS: 101 QRSD: 141 T: 164 QT: 461 QTc: 461 Interpretive Statements ELECTRONIC ATRIAL PACEMAKER MARKED RIGHT AXIS DEVIATION INTRAVENTRICULAR CONDUCTION DELAY CW 12/09/[address] T WAVE CHANGES-LATERAL LEADS - TO CONSIDER ISCHEMIA CLINICAL CORRELATION ADVISED Electronically Signed on 12-19-2019 18:34:38 EDT by Malena Cano
[2019-12-19 18:51] LABS: ERYTHROCYTE SEDIMENTATION RATE 75 mm/hr (0-30)
--- NOTE | 2019-12-19 18:54 | REPVR ---
PROCEDURE INFORMATION: Exam: CT Chest Without Contrast Exam date and time: 12/19/2019 6:27 PM Age: 79 years old Clinical indication: Shortness of breath; Additional info: SOB, HX chf, HX pericardial effusion TECHNIQUE: Imaging protocol: Computed tomography of the chest without contrast. 3D rendering: MIP and/or 3D reconstructed images were created by the technologist. Radiation optimization: All CT scans at this facility use at least one of these dose optimization techniques: automated exposure control; mA and/or kV adjustment per patient size (includes targeted exams where dose is matched to clinical indication); or iterative reconstruction. COMPARISON: CT Chest without contrast 10/31/2019 11:21 AM FINDINGS: Lungs: Compressive atelectasis both lung bases. Thickening of the inferior aspect of the major fissure on the left may represent fluid and atelectasis. Bilateral parenchymal banding demonstrated in both mid and upper lung zones may represent fibrotic changes and/or atelectasis. Geographic ground-glass opacities demonstrated in both lungs predominantly in the upper lung zones. Finding may represent atelectasis although infection can produce a similar finding, nonspecific however. Pleural space: Small bilateral pleural effusions, left greater than right. Heart: Small pericardial effusion. Cardiomegaly. Aorta: The aorta demonstrates mild atherosclerotic calcification. Lymph nodes: Numerous mediastinal lymph nodes likely postinflammatory. Bones/joints: Healing rib fractures right 3rd through 8th ribs anteriorly. Healing rib fractures left 3rd through 8th ribs anteriorly. The spine demonstrates mild degenerative changes. Soft tissues: Unremarkable. Other findings: Suspected tracheoesophageal fistula no longer demonstrated. IMPRESSION: 1. Small bilateral pleural effusions, left greater than right. 2. Geographic ground-glass opacities demonstrated in both lungs predominantly in the upper lung zones. Finding may represent atelectasis although infection can produce a similar finding, nonspecific however. 3. Healing rib fractures right 3rd through 8th ribs anteriorly. Healing rib fractures left 3rd through 8th ribs anteriorly. 4. Small pericardial effusion. 5. Cardiomegaly. 6. Numerous mediastinal lymph nodes likely postinflammatory. Electronically signed by: Cristo Russo On 12/19/2019 18:54:06 PM
[2019-12-19 19:14] LABS: ALBUMIN 2.9 GM/DL (3.2-5.2); ALT/SGPT 28 U/L (12-78); BILIRUBIN,DIRECT 0.1 MG/DL (0.0-0.2); BILIRUBIN,TOTAL 0.7 MG/DL (0.2-1.0); BLOOD UREA NITROGEN 33 MG/DL (7-18); C REACTIVE PROTEIN QUANTITATIV 5.63 MG/DL (0.00-0.30); CALCIUM LEVEL 8.5 MG/DL (8.8-10.2); CARBON DIOXIDE LEVEL 23 MEQ/L (21-32); CHLORIDE LEVEL 107 MEQ/L (98-107); CK-MB VALUE MASS 1.1 NG/ML (<3.6); CPK CREATINE PHOSPHOKINASE 41 U/L (26-192); CREATININE FOR GFR 1.45 MG/DL (0.55-1.30); GLOMERULAR FILTRATION RATE 37.3 (>39); GLUCOSE, FASTING 171 MG/DL (70-100); MB/CK RELATIVE INDEX 2.68 (< OR =4); NT-PRO BNP 34687 PG/ML (<450); POTASSIUM SERUM 6.1 MEQ/L (3.5-5.1); SODIUM LEVEL 137 MEQ/L (136-145); THYROID STIMULATING HORMONE 0.759 uIU/ML (0.358-3.740); TOTAL PROTEIN 7.6 GM/DL (6.4-8.2); TROPONIN I < 0.02 NG/ML (< 0.10)
[2019-12-19] MEDS ORDERED: CALCIUM GLUCONATE 1,000 MG in D5W MINI-BAG PLUS 100 ML IV ONE (19:45)
[2019-12-19] MEDS ORDERED: SOD POLYSTYRENE SULFONATE SUSP 15 GM/60 ML UD PO ONE (19:45)
[2019-12-19] MEDS ORDERED: FUROSEMIDE 40MG/4ML VIAL (J1940) IV ONE (19:45)
[2019-12-19] MEDS ORDERED: ATOR1TAB21 PO (20:13)
[2019-12-19] MEDS: ATORVASTATIN 20 MG TAB PO SCH (21:00)
[2019-12-19] MEDS: APIXABAN 5 MG TAB (ELIQUIS) PO SCH (21:00)
[2019-12-19] MEDS: METOPROLOL SUCC (TopROL XL) 100MG *XL* TAB PO SCH (21:00)
[2019-12-19] MEDS ORDERED: GLUCOSE 4GM CHEW TABLET PO PRN (22:15)
[2019-12-19] MEDS ORDERED: SIMETHICONE 80 MG CHEW TAB PO PRN (22:15)
[2019-12-19] MEDS ORDERED: GLUCAGON INJ 1MG VIAL SC PRN (22:15)
[2019-12-19] MEDS ORDERED: DEXTROSE 50% 50 ML SYRINGE IV PRN (22:15)
[2019-12-19 23:24] VITALS: BP 144/72
[2019-12-19] MEDS: HumaLOG INSULIN (NovoLOG) PER UNIT SC SCH (23:42)
[2019-12-19] MEDS: FLUoxetine 20 MG CAP PO SCH (23:44)
[2019-12-20] MEDS ORDERED: SLF 3 ML SYR IV PRN (00:15)
[2019-12-20 00:40] LABS: CK-MB VALUE MASS 1.1 NG/ML (<3.6); CPK CREATINE PHOSPHOKINASE 26 U/L (26-192); MB/CK RELATIVE INDEX 4.23 (< OR =4); POTASSIUM SERUM 5.3 MEQ/L (3.5-5.1); TROPONIN I < 0.02 NG/ML (< 0.10)
--- NOTE | 2019-12-20 01:00 | REP ---
PORTABLE CHEST X-RAY, SINGLE VIEW: HISTORY: Dyspnea and cough. COMPARISON CHEST X-RAY: 12/09/2019 FINDINGS: Monitoring electrodes are seen. A bipolar pacemaker is again noted in the right heart via the left side. A tunneled central venous catheter is noted in place with its tip in the expected location of the superior vena cava. Moderate cardiomegaly is observed. There is blunting of the left lateral pleural angle, slightly more prominent than on the previous study. No toya pleural effusion is seen. There is evidence of an infiltrate in the right upper lobe above the minor fissure. Some increased markings are seen in the right superior hilar region. Very slight blunting of the right lateral pleural angle. Question small amount of right effusion. IMPRESSION: Cardiomegaly with pacemaker, slight pleural angle blunting suggests effusions. Ill-defined infiltrates right upper lobe. Electronically Signed by Nicolas Barboza MD 12/27/2019 08:01 A
[2019-12-20 02:20] VITALS: BP 164/62
[2019-12-20] MEDS ORDERED: ACETAMINOPHEN TAB 650MG DOSE (2X325MG) PO PRN (02:30)
[2019-12-20] MEDS ORDERED: ACETAMINOPHEN 500 MG TAB PO ONE (02:30)
[2019-12-20] MEDS ORDERED: amLODIPine 10 MG TAB PO ONE (02:30)
[2019-12-20 04:00] VITALS: BP 138/58
[2019-12-20] MEDS: SLF 3 ML SYR IV SCH ×3 (06:16→21:16)
[2019-12-20 07:06] LABS: HEMATOCRIT 31.9 % (36.0-47.0); HEMOGLOBIN 9.6 g/dl (12.0-15.5); MEAN CORPUSCULAR HEMOGLOBIN 27.1 pg (27.0-33.0); MEAN CORPUSCULAR HGB CONC 30.1 g/dl (32.0-36.5); MEAN CORPUSCULAR VOLUME 90.1 fl (80.0-96.0); PLATELET COUNT, AUTOMATED 391 10^3/uL (150-450); RED BLOOD COUNT 3.54 10^6/uL (4.00-5.40)
[2019-12-20] MEDS ORDERED: DARBEPOETIN 100 MCG/0.5 ML *DIALYSIS* SYRINGE (J0882) IV SCH (07:30)
[2019-12-20] MEDS ORDERED: IRON SUCROSE 100MG 5ML VIAL (J1756 PER 1MG) IV SCH (07:30)
--- NOTE | 2019-12-20 07:32 | HPE ---
DATE OF ADMISSION: 12/19/2019 CHIEF COMPLAINT: Shortness of breath. HISTORY OF PRESENT ILLNESS: This is a 79-year-old, DO NOT RESUSCITATE, DO NOT INTUBATE, female with history of systolic heart failure, ejection fraction of 35-40% on echo 10/2019, mild to moderate tricuspid regurgitation, moderate pulmonary hypertension, PA pressure of 50-60 mmHg, acute on chronic renal failure leading to end stage renal disease on maintenance hemodialysis Friday, Friday, Friday, rheumatoid arthritis, diabetes, hypertension, atrial fibrillation, CVA, pericardial effusion, left pleural effusion, and chronic anemia who presents to the emergency room with two day history of shortness of breath, dyspnea on exertion without weight changes, cough, fever, chills or chest pain. No nausea, vomiting or abdominal pain. The patient has known history of congestive heart failure and presented for further evaluation. In the emergency room (ER), she was found to be fluid overloaded. CT of chest shows pleural effusion bilaterally, left greater than the right, and small pericardial effusion. She was hyperkalemic with potassium of 6.2. White count of 16,000. Respiratory panel was negative. The hospitalist was called to admit for congestive heart failure and hypertensive urgency with presenting pressure of 213/108. The patient says she was compliant with her home medications. She was not on fluid restriction. PAST MEDICAL HISTORY: 1. Systolic heart failure, ejection fraction 35-40%. 2. Chronic atrial fibrillation. 3. CVA. 4. End stage renal disease on maintenance dialysis. 5. Diabetes. 6. Hypertension. 7. Rheumatoid arthritis. 8. Depression. PAST SURGICAL HISTORY: 1. section. 2. Pericardial window. 3. Cholecystectomy. SOCIAL HISTORY: Smoked a half a pack a day for about 15 years, quit many years ago. Lives with a friend at home. No alcohol use. Health care proxy is Tarun Rosholt. The patient says she does not want to be resuscitated or intubated. No chest compressions. No intubation or ventilation. She is DO NOT RESUSCITATE, DO NOT RESUSCITATE. FAMILY HISTORY: Noncontributory due to advanced age. ALLERGIES: No known drug allergies. HOME MEDICATIONS: - acetaminophen 650 mg four times a day as needed for pain - vitamin D 1250 mcg weekly - Eliquis 5 mg twice a day - atorvastatin 20 mg every p.m. - calcium acetate 667 with meals - fluoxetine 20 mg every p.m. - Bacid 1 tab daily - metoprolol 200 mg every p.m. - simethicone 80 mg as needed for gas pain REVIEW OF SYSTEMS: Per history of present illness (HPI), 12 point system otherwise negative. PHYSICAL EXAMINATION: Temperature 99.7, pulse 60, respiratory rate 18, blood pressure 213/108, 93% on room air. Generally, the patient is awake, alert and oriented times three, in no respiratory distress or use of respiratory accessory muscles Anicteric sclerae. No jaundice. Moist mucous membranes. Mild jugular venous distention (JVD). No thyromegaly. Lungs: Diminished with fine crackles bilateral bases. Heart: S1, S2. Regular rate and rhythm. Left lower sternal border 2/6 systolic ejection murmur without radiation. Abdomen: Soft. Nontender. Nondistended. Extremities: No cyanosis or clubbing. No pitting edema. LABORATORY DATA: White count 16.5, hemoglobin 10, hematocrit 35, platelet count 413. Sodium 137, potassium 6.1, chloride 107, bicarbonate 23, BUN 33, creatinine 1.45, glucose 171, lactic acid 1.4. BNP 34,687. Troponin less than 0.02. CRP 5.63. Total CK 41. MB 1.1. CT of chest small bilateral effusions, left greater than the right, small pericardial effusion, cardiomegaly, aorta with mild atherosclerotic calcification, numerous mediastinal lymph nodes likely post inflammatory, healing rib fractures right third through eighth rib anteriorly, healing rib fractures left third through eighth rib anteriorly, nonspecific ground glass opacities in both lungs in upper lung zones. ASSESSMENT AND PLAN: This is a 79-year-old female with end stage renal disease on maintenance dialysis Friday, Friday, Friday with congestive heart failure, systolic dysfunction, with ejection fraction of 35-40%. IMPRESSION: 1. Congestive heart failure, acute decompensated systolic heart failure. Currently on strict ins and outs, daily weight, fluid restriction. She did receive one dose of Lasix. She will be dialyzed in the morning per Dr. Gray's instructions. Cycle cardiac markers every 8 hours. 2. End stage renal disease on maintenance dialysis Friday, Friday, Friday with fluid overload, bilateral pleural effusions. She will be dialyzed in the morning. She may be continued on her home dose of PhosLo. 3. Hypertensive urgency with blood pressure of 213/108 due to respiratory distress. Improvement after one dose of Lasix to 177/81. She may be resumed on her Lopressor 200 at bedtime with holding parameters for systolic pressure less than 120 and heart rate less than 60. 4. Depression. On chronic Prozac. 5. History of pericardial effusion. No acute issues currently with small pericardial effusion on CT of chest. 6. History of atrial fibrillation and CVA. On chronic Eliquis 5 mg twice a day. Sinus rhythm currently on routine vitals. On metoprolol for rate control 200 mg every p.m. 7. Dyslipidemia. Continue on Lipitor. 8. Hyperkalemia. Per Dr. Gray, no need for Kayexalate or calcium gluconate as patient will be dialyzed in the morning. 9. Anemia of chronic disease due to renal failure. No acute indication for red blood cell (RBC) transfusion. CODE STATUS: DO NOT RESUSCITATE, DO NOT INTUBATE. MTDD
[2019-12-20 07:35] LABS: CREATININE FOR GFR 1.34 MG/DL (0.55-1.30); GLOMERULAR FILTRATION RATE 40.8 (>39); MAGNESIUM LEVEL 1.9 MG/DL (1.8-2.4); POTASSIUM SERUM 4.7 MEQ/L (3.5-5.1)
[2019-12-20 07:39] LABS: CK-MB VALUE MASS 1.1 NG/ML (<3.6); CPK CREATINE PHOSPHOKINASE 21 U/L (26-192); MB/CK RELATIVE INDEX 5.24 (< OR =4); TROPONIN I < 0.02 NG/ML (< 0.10)
[2019-12-20 08:00] VITALS: BP 136/60
[2019-12-20] MEDS: HumaLOG INSULIN (NovoLOG) PER UNIT SC SCH ×4 (08:32→21:00)
[2019-12-20] MEDS ORDERED: ENOXAPARIN 30MG/0.3ML SYRINGE (J1650 PER 10MG) SC SCH (09:00)
--- NOTE | 2019-12-20 10:25 | IPNPDOC ---
Subjective Date Seen The patient was seen on 12/20/19. Subjective Chief Complaint/HPI Patient feeling slightly better. Offers no new complaint at the present time General: Denies: ROS Unobtainable, Chills, Night Sweats, Fatigue, Malaise, Normal Appetite, Other Symptoms Constitutional: Denies: Chills, Fever, Malaise, Night Sweats, Weakness, Fatigue, Weight Loss, Lethargy, Other Eyes: Denies: Pain, Vision change, Conjunctivae inflammation, Eyelid inflammation, Redness, Other ENT: Denies: Head Aches, Ear Pain, Dysphagia, Sinus Congestion, Post Nasal Drip, Sore Throat, Epistaxis, Other Symptoms Skin: Denies: Rash, Lesions, Jaundice, Bruising, Itching, Dry, Breakdown, Nail Changes, Other Pulmonary: Reports: Dyspnea Cardiovascular: Denies: Chest Pain, Palpitations, Orthopnea, Paroxysmal Noc. Dyspnea, Edema, Lt Headedness, Other Symptoms Gastrointestinal: Denies: Nausea, Vomiting, Abdominal Pain, Diarrhea, Constipation, Melena, Hematochezia, Other Symptoms Genitourinary: Denies: Dysuria, Frequency, Incontinence, Hematuria, Retention, Other Symptoms Musculoskeletal: Denies: Neck Pain, Back Pain, Shoulder Pain, Arm Pain, Hand Pain, Leg Pain, Foot Pain, Joint Pain, Muscle Pain, Spasms, Other Symptoms Neurological: Denies: Weakness, Numbness, Incoordination, Change in speech, Con fusion, Seizures, Other Symptoms Objective Physical Examination General Exam: Positive: Alert, Cooperative Eye Exam: Positive: PERRLA, Conjunctiva & lids normal ENT Exam: Positive: Atraumatic Neck Exam: Positive: Supple, JVD Chest Exam: Positive: Normal air movement, Other (crackles at the bases) Heart Exam: Positive: Rate Normal, Normal S1, Normal S2 Abdomen Exam: Positive: Normal bowel sounds Extremity Exam: Positive: Normal pulses Skin Exam: Positive: Nl turgor and temperature Neuro Exam: Positive: Strength at 5/5 X4 ext, Sensation Intact, Cranial Nerves 3-12 NL Psych Exam: Positive: Mood NL, Oriented x 3 Assessment /Plan Problems (1) Acute systolic heart failure Status: Acute Problem Text: Acute systolic congestive heart failure Patient received 1 dose of Lasix in ED and put out about 400 mL of urine Patient is scheduled for hemodialysis this morning, possible fluid overload and bilateral pleural effusion Patient receives her hemodialysis on Friday, Friday and Friday with Dr. Gray Patient will be monitored today after dialysis and hopefully she can be discharged home tomorrow on all her current home meds (2) ESRD (end stage renal disease) on dialysis Status: Chronic Problem Text: Scheduled for hemodialysis today Will monitor on telemetry after dialysis tonight and possible discharge in a.m. (3) HTN (hypertension) Status: Chronic Problem Text: The patient was found to have a hypertensive urgency with blood pressure out 210/100 and most likely secondary to volume overload and pulmonary distress. Patient's blood pressure improved with IV Lasix and her Lopressor was started. , Hopefully after dialysis. Patient's blood pressure be back to her baseline Continue all her home meds Plan/VTE VTE Prophylaxis Ordered?: Yes VS, [facility] Vital Signs/I&O Vital Signs Date Time Temp Pulse Resp B/P (MAP) Pulse Ox O2 Delivery O2 Flow Rate FiO2 12/20/19 08:00 96.0 60 18 136/60 (85) 96 Room Air 12/20/19 04:00 2.0 I&O- Last 24 Hours up to 6 AM 12/20/19 05:59 Intake Total 0 ml Output Total 600 ml Balance -600 ml Laboratory Data 24H LABS Laboratory Tests 2 12/19/19 17:43: Blood Gas Bicarbonate Standard 23.0, Arterial Blood pH 7.408, Arterial Blood Partial Pressure CO2 36.6, Arterial Blood Partial Pressure O2 83.8, Arterial Blood Total CO2 23.7, Arterial Blood HCO3 22.6, Arterial Blood Base Excess -1.7, Arterial Blood Oxygen Saturation 96.3 12/19/19 18:06: Immature Granulocyte % (Auto) 0.4, Neutrophils (%) (Auto) 79.6H, Lymphocytes (%) (Auto) 11.8L, Monocytes (%) (Auto) 6.0H, Eosinophils (%) (Auto) 1.3, Basophils (%) (Auto) 0.9, Neutrophils # (Auto) 13.1H, Lymphocytes # (Auto) 1.9, Monocytes # (Auto) 1.0H, Eosinophils # (Auto) 0.2, Basophils # (Auto) 0.1, Nucleated Red Blood Cells % (auto) 0.0, Erythrocyte Sedimentation Rate 75H, Prothrombin Time 17.6H, Prothromb Time International Ratio 1.47, Anion Gap 7L, Glomerular Filtra tion Rate 37.3L, Lactic Acid Level 1.4, Calcium Level 8.5L, Total Bilirubin 0.7, Direct Bilirubin 0.1, Aspartate Amino Transf (AST/SGOT) 35, Alanine Aminotransferase (ALT/SGPT) 28, Alkaline Phosphatase 93, Total Creatine Kinase 41, Creatine Kinase MB 1.1, Creatine Kinase MB Relative Index 2.68, Troponin I < 0.02, C-Reactive Protein, Quantitative 5.63H, JH-Weh-A-Type Natriuretic Peptide 03842M, Total Protein 7.6, Albumin 2.9L, Albumin/Globulin Ratio 0.62L, Thyroid Stimulating Hormone (TSH) 0.759 12/19/19 20:12: Coronavirus (COVID-19)(PCR) NEGATIVE 12/19/19 23:39: Bedside Glucose (Misc Panel) 171H 12/19/19 23:49: Total Creatine Kinase 26, Creatine Kinase MB 1.1, Creatine Kinase MB Relative Index 4.23H, Troponin I < 0.02 12/20/19 06:55: Total Creatine Kinase 21L, Creatine Kinase MB 1.1, Creatine Kinase MB Relative Index 5.24H, Troponin I < 0.02, Nucleated Red Blood Cells % (auto) 0.0, Anion Gap 7L, Glomerular Filtration Rate 40.8, Estimated Mean Plasma Glucose 154H, Hemoglobin A1c 7.0, Calcium Level 8.0L, Magnesium Level 1.9 CBC/BMP Laboratory Tests 12/19/19 18:06 12/19/19 20:12 12/19/19 23:49 12/20/19 06:55 Microbiology Microbiology 12/19/19 Respiratory Panel (PCR) - Final, Complete 12/19/19 Blood Culture, Received Pending 12/19/19 Blood Culture, Received Pending RITESH ONEIL MD Dec 20, 2019 10:25
[2019-12-20 13:24] VITALS: BP 162/62
--- NOTE | 2019-12-20 13:54 | CR ---
DATE OF CONSULTATION: 12/20/2019 REQUESTING PHYSICIAN: Dr. Sara Singletary CONSULTING PHYSICIAN: Dr. Gray REASON FOR CONSULTATION: Management of end-stage renal disease and volume overload. HISTORY OF PRESENT ILLNESS: Cheryl More is a 79-year-old female with past medical history of end-stage renal disease on hemodialysis q. Friday, Friday, Friday with last dialysis done on 12/17/2019 and 2.6 kg fluid removed, chronic systolic congestive heart failure, pulmonary hypertension, and history of pleural and pericardial effusions during previous hospitalizations. She presented to the emergency room again yesterday with progressive shortness of breath. She got a CAT scan of the chest done which showed bilateral pleural effusions and a small pericardial effusion. She was also hyperkalemic in the emergency room. She was admitted under the hospitalist service for decompensated congestive heart failure and hypertensive urgency. Nephrology service was called for further help in the management of this patient. I saw and evaluated the patient today morning at the bedside. She was sitting up in the sofa. She was finishing her breakfast when I saw her. I have already arranged hemodialysis to be done and she was leaving to go get her hemodialysis done. PAST MEDICAL HISTORY: Past medical history of end-stage renal disease on hemodialysis q. Friday, Friday, Friday with last dialysis done before the weekend on Friday, chronic systolic congestive heart failure, LV ejection fraction of 35-40%, chronic atrial fibrillation, CVA, history of pleural effusion and pericardial effusion, diabetes mellitus type 2, hypertension, rheumatoid arthritis, and depression. PAST SURGICAL HISTORY: Status post , status post pericardial window and status post cholecystectomy. ALLERGIES: She has NO KNOWN DRUG ALLERGIES. FAMILY HISTORY: No significant family history of end-stage renal disease requiring hemodialysis. SOCIAL HISTORY: The patient is an ex-smoker. She lives at home with her friend. She denies any illicit drug abuse or alcohol abuse. The patient has DO NOT RESUSCITATE (DNR) status. REVIEW OF SYSTEMS: Constitutional: When she came in, she denied any fevers or chills. Eyes: She denies any blurry vision or double vision. ENT: She denies any dysphagia, aphagia or odynophagia. Cardiovascular: She reported shortness of breath when she came in. Respiratory: She denies any cough, but she did report shortness of breath. GI: She denies any nausea or vomiting. Genitourinary: She denies any dysuria or hematuria. Musculoskeletal: She denies any muscle aches and pains. Skin: She denies any rashes or ulcers. Hematology/Oncology: She denies any easy bleeding or bruising. Endocrine: She reports history of diabetes mellitus type 2. BLOCK SORTER: She denies any weakness or seizures. All other review of systems is negative. PHYSICAL EXAMINATION: General: The patient is awake, alert, oriented x3, sitting up in the sofa, in no apparent distress. Vital Signs: Temperature in the morning was 96 degrees Fahrenheit, blood pressure 136/60, pulse 60, respiratory rate of 18, saturating 96% on room air. Her blood pressure on arrival was 195/88. Intake and output: She has made 200 mL of urine yesterday, 700 mL of urine since overnight. Weight in the bed scale was 69.4 kg yesterday. Head and Neck Exam: Extraocular muscles intact. Pupils equally round and reactive to light. Mucous membranes are moist. Neck is supple. There is no jugular venous distention (JVD). She has a dialysis catheter. Cardiovascular: S1, S2. 1+ edema of the bilateral lower extremities. Respiratory: Decreased breath sounds at the bases with decreased local resonance at the bases. Abdomen: Soft. Positive bowel sounds. Nontender. No organomegaly. Musculoskeletal: No clubbing or cyanosis. Pulses are 2+. BLOCK SORTER: No focal deficit. Power is 5/5 in all extremities. Skin: No rashes or ulcers. LAB REVIEW: CBC showed a WBC of 14, hemoglobin 9.6, platelets 391. INR is 1.47. ABG done yesterday showed a pH of 7.4, pCO2 of 36, pO2 83, bicarb 23, and O2 sat 96%. BMP done today morning showed sodium 140, potassium 4.7, chloride 108, bicarb 25, BUN 34, creatinine 1.34, calcium is 8, magnesium is 1.9. Microbiology: Respiratory viral panel is negative. Blood culture is pending. IMAGING STUDIES: She got a CAT scan of the chest done yesterday that showed small bilateral pleural effusions, left greater than right, ground course opacities in the lungs, small pericardial effusion and cardiomegaly. She also had a chest x-ray done which showed cardiomegaly with pacemaker, ill defined infiltrate in the right upper lobe. CURRENT INPATIENT MEDICATIONS: The patient's medications were all reviewed by me. She got a dose of calcium gluconate yesterday. She is on Tylenol p.r.n. and amlodipine 10 mg by mouth - one dose was given in the morning. She is on Eliquis 5 mg by mouth twice a day, Lipitor 20 mg at bedtime, PhosLo 1 tablet with meals. I have started her on Aranesp 100 mcg with dialysis. She is on fluoxetine 20 mg daily. She was given a dose of Lasix 40 mg IV x1 dose. She has been started on iron sucrose with dialysis. She is on metoprolol XL 200 mg by mouth every p.m., simethicone, and she was given a dose of Kayexalate last night. ASSESSMENT: 79-year-old female with end-stage renal disease on hemodialysis q. Friday, Friday, Friday, admitted this time with acute decompensated systolic congestive heart failure and hyperkalemia with hypertensive urgency. PLAN: 1. End-stage renal disease. Looking at the patient's creatinine, it looks like the patient's renal function is improving. Her creatinine is only 1.45 on admission; however, given her decompensated volume status and hyperkalemia the patient is going to get dialysis and 3 liters of fluid will be removed. I am going to start the patient on diuretics as well and see if we can slowly wean off her dialysis. 2. Hyperkalemia. The patient was already given Kayexalate overnight and she is going to get dialysis with 2K bath. Potassium level is already improving. 3. Acute decompensated congestive heart failure. The patient's volume status is being managed with dialysis. However, I am going to start the patient on diuretics. After putting her on diuretics, I would try to collect 24 hours of urine to see if we can stop her dialysis. 4. Anemia in chronic kidney disease. The patient has been started on Venofer and Aranesp with dialysis. 5. Hypertension. The patient's blood pressure is better optimized now. She got a dose of amlodipine at night. Continue current dose of metoprolol. Optimization of fluid status would also help improve blood pressure. Thank you for involving me in the care of this patient. I shall be happy to follow the patient along with you tomorrow morning.
[2019-12-20] MEDS: LACTOBACILLUS ACIDOPHILUS CAP (BACID) PO SCH (14:02)
[2019-12-20] MEDS: CALCIUM ACETATE 667 MG GELCAP PO SCH ×3 (14:02→18:25)
[2019-12-20] MEDS: APIXABAN 5 MG TAB (ELIQUIS) PO SCH ×2 (14:02→21:15)
[2019-12-20 15:19] VITALS: BP 137/61
[2019-12-20] MEDS: TORSEMIDE 20 MG TAB PO SCH (17:41)
[2019-12-20 20:00] VITALS: BP 132/72
[2019-12-20] MEDS: ATORVASTATIN 20 MG TAB PO SCH (21:15)
[2019-12-20] MEDS: METOPROLOL SUCC (TopROL XL) 100MG *XL* TAB PO SCH (21:15)
[2019-12-20] MEDS: FLUoxetine 20 MG CAP PO SCH (21:15)
[2019-12-21] VITALS (7 sets, daily range): BP systolic 130–171; BP diastolic 60–76
[2019-12-21] MEDS: SLF 3 ML SYR IV SCH ×3 (04:49→21:10)
[2019-12-21 06:19] LABS: HEMOGLOBIN 10.2 g/dl (12.0-15.5); MEAN CORPUSCULAR HEMOGLOBIN 27.4 pg (27.0-33.0); MEAN CORPUSCULAR HGB CONC 30.9 g/dl (32.0-36.5); MEAN CORPUSCULAR VOLUME 88.7 fl (80.0-96.0); PLATELET COUNT, AUTOMATED 394 10^3/uL (150-450); RED BLOOD COUNT 3.72 10^6/uL (4.00-5.40); WHITE BLOOD COUNT 13.9 10^3/uL (4.0-10.0)
[2019-12-21 06:40] LABS: CALCIUM LEVEL 8.1 MG/DL (8.8-10.2); CREATININE FOR GFR 1.43 MG/DL (0.55-1.30); GLOMERULAR FILTRATION RATE 37.9 (>39); MAGNESIUM LEVEL 1.5 MG/DL (1.8-2.4); POTASSIUM SERUM 3.8 MEQ/L (3.5-5.1)
[2019-12-21] MEDS: APIXABAN 5 MG TAB (ELIQUIS) PO SCH ×2 (08:44→21:10)
[2019-12-21] MEDS: TORSEMIDE 20 MG TAB PO SCH ×2 (08:44→18:19)
[2019-12-21] MEDS: HumaLOG INSULIN (NovoLOG) PER UNIT SC SCH ×4 (08:44→20:13)
[2019-12-21] MEDS: LACTOBACILLUS ACIDOPHILUS CAP (BACID) PO SCH (08:44)
[2019-12-21] MEDS: CALCIUM ACETATE 667 MG GELCAP PO SCH ×3 (08:44→18:19)
--- NOTE | 2019-12-21 18:13 | IPNPDOC ---
Date Seen The patient was seen on 12/21/19. Progress Note SUBJECTIVE: No acute complaints beside some weakness with PT/OT. HD in the AM, hopeful for discharge after second session. Denies chest pain, shortness of breath,n/v/d. OBJECTIVE: VITAL SIGNS: Please see below. PHYSICAL EXAMINATION: GENERAL: In NAD, resting in bedside chair. AAOx 3 RESPIRATORY: Diminished with fine crackles bilateral bases still, No wheezing, rhonchi or rales. CVS: S1, S2 +, RRR, left lower sternal border 2/6 systolic murmur. GI: soft, Nontender. Nondistended.Anicteric sclerae. No jaundice. Moist mucous membranes. CHEST: Port right upper chest EXT: No cyanosis or clubbing. No pitting edema. NEURO: CN 2-12 intact, sensory and motor in tact, no focal deficits. LABORATORY DATA: Please see below. Imaging: No new imaging. ASSESSMENT: 79-year-old female with end stage renal disease on maintenance dialysis Friday, Friday, Friday with congestive heart failure, systolic dysfunction, with ejection fraction of 35-40%. PLAN: 1. Congestive heart failure, acute decompensated systolic heart failure, pleural effusions. Intermittently on RA-1L NC, not on home O2. S/p HD on 12/20/19 with 3 L fluid removed. C/w strict ins and outs, daily weight, fluid restriction. receive one dose of Lasix. C/w diuretics as per nephrology, Dr. Gray's instructions. 2. End stage renal disease on maintenance dialysis Friday, Friday, Friday. with fluid overload, bilateral pleural effusions. She will be dialyzed again in the morning. C/w PhosLo. 3. Hypertension. Improved s/p HD, lasix and home meds. 4. Depression. C/w Prozac. 5. History of pericardial effusion. No acute issues currently with small pericardial effusion on CT of chest. 6. History of atrial fibrillation and CVA. On chronic Eliquis 5 mg twice a day. Sinus rhythm currently on routine vitals. On metoprolol for rate control 200 mg every p.m. 7. Dyslipidemia. C/w Lipitor. 8. Hyperkalemia, resolved. S/p K bath with HD on 12/20/19. 9. Anemia of chronic disease due to renal failure. No acute indication for red blood cell (RBC) transfusion. Venofer and Aranesp with dialysis. 10. DVT px. eliquis DISPOSITION: Currently under inpatient status. Will see if can wean off O2 with additional dialysis session. Plan is for home when medically improved. Nephrology following. VS, I&O, 24H, Fishbone Vital Signs/I&O Vital Signs Date Time Temp Pulse Resp B/P (MAP) Pulse Ox O2 Delivery O2 Flow Rate FiO2 12/21/19 16:00 1.0 12/21/19 16:00 96.7 59 18 149/65 (93) 93 Nasal Cannula I&O- Last 24 Hours up to 6 AM 12/21/19 06:00 Intake Total 820 ml Output Total 3300 ml Balance -2480 ml Laboratory Data 24H LABS Laboratory Tests 2 12/20/19 19:50: Bedside Glucose (Misc Panel) 194H 12/21/19 06:03: Nucleated Red Blood Cells % (auto) 0.0, Anion Gap 6L, Glomerular Filtration Rate 37.9L, Calcium Level 8.1L, Magnesium Level 1.5L 12/21/19 11:44: Bedside Glucose (Misc Panel) 157H 12/21/19 16:27: Bedside Glucose (Misc Panel) 195H CBC/BMP Laboratory Tests 12/21/19 06:03 Microbiology Microbiology 12/19/19 Respiratory Panel (PCR) - Final, Complete 12/19/19 Blood Culture - Preliminary, Resulted No growth after 24 hours . All specim... 12/19/19 Blood Culture - Preliminary, Resulted No growth after 24 hours . All specim... Current Medications Current Medications Medications (Trade) Dose Ordered Sig/Renteta Route PRN Reason Start Time Stop Time Status Last Admin Dose Admin Acetaminophen (Tylenol Tab) 650 mg Q4HP PRN PO PAIN OR FEVER 12/20/19 02:30 12/20/19 21:15 Apixaban (Eliquis) 5 mg BID PO 12/19/19 21:00 12/21/19 08:44 Atorvastatin Calcium (Lipitor) 20 mg QPM PO 12/19/19 21:00 12/20/19 21:15 Calcium Acetate (Phoslo) 667 mg WM PO 12/20/19 08:00 12/21/19 12:58 Darbepoetin Francisco (Aranesp (Dialysis Use)) 100 mcg HD IV 12/20/19 07:30 Dextrose (Dextrose 50%) 25 ml ASDIRECTED PRN IV SEE LABEL COMMENTS 12/19/19 22:15 Enoxaparin Sodium (Lovenox) 30 mg DAILY SC 12/20/19 09:00 12/19/19 19:32 DC Fluoxetine HCl (PROzac) 20 mg QPM PO 12/19/19 21:00 12/20/19 21:15 Glucagon (Glucagon) 1 mg ASDIRECTED PRN SC SEE LABEL COMMENTS 12/19/19 22:15 Glucose (Glucose) 16 GM ASDIRECTED PRN PO SEE LABEL COMMENTS 12/19/19 22:15 Home Med (Med Rec Complete!) ASDIRECTED XX 12/19/19 20:15 12/19/19 20:23 DC Insulin Human Lispro (HumaLOG INSULIN) SEE PROTOCOL TABLE AC SC 12/20/19 07:30 12/21/19 12:58 Insulin Human Lispro (HumaLOG INSULIN) SEE PROTOCOL TABLE QHS SC 12/19/19 21:00 Iron (Venofer) 100 mg HD IV 12/20/19 07:30 Lactobacillus Acidophilus (Bacid) 1 ea DAILY PO 12/20/19 09:00 12/21/19 08:44 Metoprolol Succinate (TopROL XL) 200 mg QPM PO 12/19/19 21:00 12/20/19 21:15 Simethicone (Mylicon) 80 mg PC PRN PO GAS PAIN 12/19/19 22:15 Sodium Chloride (Saline Lock Flush) 2 ml ASDIRECTED PRN IV SEE LABEL COMMENTS 12/20/19 00:15 Sodium Chloride (Saline Lock Flush) 2 ml SLF IV 12/20/19 06:00 12/21/19 14:48 Torsemide (Demadex) 40 mg BID@09,17 PO 12/20/19 17:00 12/21/19 08:44 Allergies Coded Allergies: No Known Allergies (Unverified , 10/15/18) Rosa Colón MD Dec 21, 2019 18:13
[2019-12-21] MEDS: FLUoxetine 20 MG CAP PO SCH (21:10)
[2019-12-21] MEDS: METOPROLOL SUCC (TopROL XL) 100MG *XL* TAB PO SCH (21:10)
[2019-12-21] MEDS: ATORVASTATIN 20 MG TAB PO SCH (21:10)
--- NOTE | 2019-12-21 21:50 | IPN ---
DATE: 12/21/2019 SUBJECTIVE: The patient was seen and examined at the bedside today morning. She was sitting up on the sofa. She was eating her breakfast when I saw her. She denies any active complaints. She was dialyzed yesterday, only 2.5 liters of fluid was removed because the patient was starting to cramp. She is responding to the oral diuretics as well. She denies any active complaints today. OBJECTIVE: Vital signs: Temperature is 97.6 degrees Fahrenheit, blood pressure 149/65, pulse is 59, respiratory rate of 18, saturating 93% on nasal cannula at 1 liter. Intake and output: Urine output recorded since overnight is 400 mL. Ultrafiltration with hemodialysis was 2.5 liters. Weight in the bed scale is 68.1 kg. PHYSICAL EXAMINATION: General: The patient is awake, alert, oriented times three, sitting up in the sofa, no apparent distress. Head and neck exam: Extraocular muscles intact. Pupils equally round and reactive to light. Mucous membranes are moist. Neck is supple. There is no jugular venous distention (JVD). Cardiovascular: S1, S2, regular rate. No edema of the bilateral lower extremities. Respiratory: Chest is clear to auscultation bilaterally. Bilateral equal air entry. No rales or rhonchi. Abdomen: Soft, positive bowel sounds. Nontender. No organomegaly. Musculoskeletal: No clubbing or cyanosis. Pulses are 2+. Central nervous system (PAVING INSPECTOR): No focal deficit. Power is 5/5 in all extremities. LAB REVIEW: CBC showed a WBC of 13.9, hemoglobin 10.2, platelets are 394. BMP showed sodium 135, potassium 3.8, chloride 101, bicarbonate 28, BUN 24, creatinine is 1.4, calcium 8.1, magnesium is 1.5. CURRENT INPATIENT MEDICATIONS: The patient's medications were all reviewed by myself. There is no significant change in the medications today as compared with yesterday. ASSESSMENT/PLAN: 1. End-stage renal disease. The patient was dialyzed yesterday, 2.5 liters of fluid was removed. Volume status is optimal. Continue the current diuretics dose. Continue to monitor renal function. 2. Acute decompensated congestive heart failure. The patient's volume status is significantly better. Continue current dose of torsemide 40 mg by mouth twice a day. Rest of the volume status is being optimized with dialysis. Continue current dose of Toprol XL 200 mg by mouth daily. 3. Atrial fibrillation. Heart rate is controlled. Continue metoprolol and Eliquis 5 mg by mouth twice a day. 4. Anemia in end-stage renal disease. The patient is getting Aranesp and Venofer with dialysis. Hemoglobin level is within the acceptable range.
[2019-12-22] VITALS: BP 116/54
[2019-12-22 04:00] VITALS: BP 126/83
[2019-12-22] MEDS: SLF 3 ML SYR IV SCH ×3 (05:57→21:29)
[2019-12-22 05:59] LABS: HEMATOCRIT 34.7 % (36.0-47.0); HEMOGLOBIN 10.7 g/dl (12.0-15.5); MEAN CORPUSCULAR HEMOGLOBIN 27.4 pg (27.0-33.0); MEAN CORPUSCULAR HGB CONC 30.8 g/dl (32.0-36.5); MEAN CORPUSCULAR VOLUME 88.7 fl (80.0-96.0); PLATELET COUNT, AUTOMATED 408 10^3/uL (150-450); RED BLOOD COUNT 3.91 10^6/uL (4.00-5.40); WHITE BLOOD COUNT 14.2 10^3/uL (4.0-10.0)
[2019-12-22 06:10] LABS: CALCIUM LEVEL 8.3 MG/DL (8.8-10.2); CREATININE FOR GFR 1.7 MG/DL (0.55-1.30); MAGNESIUM LEVEL 1.5 MG/DL (1.8-2.4); POTASSIUM SERUM 3.8 MEQ/L (3.5-5.1)
[2019-12-22] MEDS: APIXABAN 5 MG TAB (ELIQUIS) PO SCH ×2 (07:21→21:28)
[2019-12-22] MEDS: TORSEMIDE 20 MG TAB PO SCH ×2 (07:21→17:25)
[2019-12-22 08:00] VITALS: BP 166/77
[2019-12-22] MEDS: CALCIUM ACETATE 667 MG GELCAP PO SCH ×3 (08:33→17:24)
[2019-12-22] MEDS: LACTOBACILLUS ACIDOPHILUS CAP (BACID) PO SCH (08:33)
[2019-12-22] MEDS: HumaLOG INSULIN (NovoLOG) PER UNIT SC SCH ×4 (08:34→21:00)
[2019-12-22 12:00] VITALS: BP 155/67
--- NOTE | 2019-12-22 14:17 | IPN ---
DATE OF SERVICE: 12/22/2019 SUBJECTIVE: The patient was seen and examined at the bedside today morning. She was actually sitting up in the sofa. She denies any active complaints. She denies any shortness of breath. She continues to be on oral diuretics. Today is her regular day of dialysis. However, I am going to hold the dialysis today and check her 24-hour urine creatinine clearance. OBJECTIVE: Vital signs: Temperature is 97.6 degrees Fahrenheit, blood pressure 155/67, pulse is 60, respiratory rate of 18, saturating 92% on room air. Intake and output: Urine output recorded is 600 mL yesterday, 600 mL so far today since overnight. Weight in the bed scale is 68.5 kg. PHYSICAL EXAMINATION: General: The patient is awake, alert, oriented times three, sitting up in the sofa, no apparent distress. Head and neck examination: Extraocular muscles intact. Pupils equally round and reactive to light. Mucous membranes are moist. Neck is supple. There is no jugular venous distention (JVD). Cardiovascular: S1, S2, regular rate. Trace edema of the bilateral lower extremities. Respiratory: Chest is clear to auscultation bilaterally. Mildly decreased breath sounds at the bases. Otherwise, no active rales or rhonchi. Abdomen: Soft. Positive bowel sounds. Nontender. No organomegaly. Musculoskeletal: No clubbing or cyanosis. Pulses are 2+. Central nervous system (MIXER AND BLENDER): No focal deficit. Power is 5/5 in all extremities. LABORATORY REVIEW: Complete blood count (CBC) showed WBC 14.2, hemoglobin 10.7, platelets are 408. Basic metabolic profile (BMP) showed sodium 139, potassium 3.8, chloride 102, bicarbonate 28, BUN 43, creatinine is 1.7, it was 1.4 yesterday, calcium is 8.3, magnesium 1.5, Pro-BNP is 11,376 which is better than the admission Pro-BNP. CURRENT INPATIENT MEDICATIONS: The patient's medications were all reviewed by me. She continues to be on torsemide 40 mg by mouth twice a day. No other significant change in the medications today. ASSESSMENT: 1. End-stage renal disease. The patient is dialysis dependent. She was dialyzed during this admission. However, it looks like her renal function might be recovering. Her creatinine is 1.7. I am going to order 24-hour urine creatinine clearance. I would hold off on dialysis today. Continue the diuretics. 2. Acute decompensated congestive heart failure. The patient is currently on torsemide 40 mg by mouth twice a day. Weight is stable. Continue current dose of metoprolol XL. If needed, diuretic dose will be increased. 3. Atrial fibrillation. Heart rate is controlled with the metoprolol, and she is anticoagulated with Eliquis. 4. Anemia in chronic kidney disease. The patient was getting Aranesp and Venofer with dialysis. Hemoglobin at this time is 10.7, which is optimal.
[2019-12-22 16:00] VITALS: BP 158/67
--- NOTE | 2019-12-22 19:43 | IPNPDOC ---
Date Seen The patient was seen on 12/22/19. Progress Note SUBJECTIVE: No acute complaints. 24 hour urine ordered today, no HD as Cr improving. Denies chest pain, shortness of breath,n/v/d. OBJECTIVE: VITAL SIGNS: Please see below. PHYSICAL EXAMINATION: GENERAL: In NAD, resting in bedside chair. AAOx 3 RESPIRATORY: Diminished with fine crackles bilateral bases, No wheezing, rhonchi or rales. CVS: S1, S2 +, RRR, left lower sternal border 2/6 systolic murmur. GI: soft, Nontender. Nondistended. Anicteric sclerae. No jaundice. Moist mucous membranes. CHEST: Port right upper chest EXT: No cyanosis or clubbing. No pitting edema. NEURO: CN 2-12 intact, sensory and motor in tact, no focal deficits. LABORATORY DATA: Please see below. Imaging: No new imaging. ASSESSMENT: 79-year-old female with end stage renal disease on HD with congestive heart failure, systolic dysfunction, with ejection fraction of 35- 40%. PLAN: 1. Congestive heart failure, acute decompensated systolic heart failure, pleural effusions. There was a question as to whether or not this patient (who is not always the best historian) is already on ATC O2 at home. Social work to look into. Currently on 1 LNC, +570 yestrday. No HD today. C/w strict ins and outs, daily weight, fluid restriction. C/w diuretics as per nephrology. 2. End stage renal disease on maintenance dialysis Friday, Friday, Friday. Cr improving and may be patient is transitioning off of dialysis per nephrology. 24 hour urine ordered. C/w PhosLo. 3. Hypertension. Stable. C/w lasix and home meds. 4. Depression. C/w Prozac. 5. History of pericardial effusion. No acute issues currently with small pericardial effusion on CT of chest. 6. History of atrial fibrillation and CVA, chronic. C/w Eliquis, BB 7. Dyslipidemia. C/w Lipitor. 8. Anemia of chronic disease due to renal failure. No acute indication for red blood cell (RBC) transfusion. Venofer and Aranesp with dialysis. 9. DVT px. eliquis DISPOSITION: Currently under inpatient status. Plan is for home when medically improved. Nephrology following. VS, I&O, 24H, Fishbone Vital Signs/I&O Vital Signs Date Time Temp Pulse Resp B/P (MAP) Pulse Ox O2 Delivery O2 Flow Rate FiO2 12/22/19 16:00 97.3 87 19 158/67 (97) 94 Room Air 12/22/19 08:00 1.0 I&O- Last 24 Hours up to 6 AM 12/22/19 05:59 Intake Total 1070 ml Output Total 300 ml Balance 770 ml Laboratory Data 24H LABS Laboratory Tests 2 12/21/19 20:08: Bedside Glucose (Misc Panel) 219H 12/22/19 05:20: Nucleated Red Blood Cells % (auto) 0.0, Anion Gap 9, Glomerular Filtration Rate 31.0L, Calcium Level 8.3L, Magnesium Level 1.5L, [id number] Natriuretic Pepti de [id number] 12/22/19 11:36: Bedside Glucose (Misc Panel) 190H 12/22/19 16:55: Bedside Glucose (Misc Panel) 196H CBC/BMP Laboratory Tests 12/22/19 05:20 Microbiology Microbiology 12/19/19 Respiratory Panel (PCR) - Final, Complete 12/19/19 Blood Culture - Preliminary, Resulted No Growth after 72 hours. All specime... 12/19/19 Blood Culture - Preliminary, Resulted No Growth after 72 hours. All specime... Current Medications Current Medications Medications (Trade) Dose Ordered Sig/Renetta Route PRN Reason Start Time Stop Time Status Last Admin Dose Admin Acetaminophen (Tylenol Tab) 650 mg Q4HP PRN PO PAIN OR FEVER 12/20/19 02:30 12/20/19 21:15 Apixaban (Eliquis) 5 mg BID PO 12/19/19 21:00 12/22/19 07:21 Atorvastatin Calcium (Lipitor) 20 mg QPM PO 12/19/19 21:00 12/21/19 21:10 Calcium Acetate (Phoslo) 667 mg WM PO 12/20/19 08:00 12/22/19 17:24 Darbepoetin Francisco (Aranesp (Dialysis Use)) 100 mcg HD IV 12/20/19 07:30 Dextrose (Dextrose 50%) 25 ml ASDIRECTED PRN IV SEE LABEL COMMENTS 12/19/19 22:15 Enoxaparin Sodium (Lovenox) 30 mg DAILY SC 4/20/20 09:00 12/19/19 19:32 DC Fluoxetine HCl (PROzac) 20 mg QPM PO 12/19/19 21:00 12/21/19 21:10 Glucagon (Glucagon) 1 mg ASDIRECTED PRN SC SEE LABEL COMMENTS 12/19/19 22:15 Glucose (Glucose) 16 GM ASDIRECTED PRN PO SEE LABEL COMMENTS 12/19/19 22:15 Home Med (Med Rec Complete!) ASDIRECTED XX 12/19/19 20:15 12/19/19 20:23 DC Insulin Human Lispro (HumaLOG INSULIN) SEE PROTOCOL TABLE AC SC 12/20/19 07:30 12/22/19 17:25 Insulin Human Lispro (HumaLOG INSULIN) SEE PROTOCOL TABLE QHS SC 12/19/19 21:00 Iron (Venofer) 100 mg HD IV 12/20/19 07:30 Lactobacillus Acidophilus (Bacid) 1 ea DAILY PO 12/20/19 09:00 12/22/19 08:33 Metoprolol Succinate (TopROL XL) 200 mg QPM PO 12/19/19 21:00 12/21/19 21:10 Simethicone (Mylicon) 80 mg PC PRN PO GAS PAIN 12/19/19 22:15 Sodium Chloride (Saline Lock Flush) 2 ml ASDIRECTED PRN IV SEE LABEL COMMENTS 12/20/19 00:15 Sodium Chloride (Saline Lock Flush) 2 ml SLF IV 12/20/19 06:00 12/22/19 14:00 Torsemide (Demadex) 40 mg BID@09,17 PO 12/20/19 17:00 12/22/19 17:25 Allergies Coded Allergies: No Known Allergies (Unverified , 10/15/18) Rosa Colón MD Dec 22, 2019 19:43
[2019-12-22 20:00] VITALS: BP 126/60
[2019-12-22] MEDS: FLUoxetine 20 MG CAP PO SCH (21:28)
[2019-12-22] MEDS: ATORVASTATIN 20 MG TAB PO SCH (21:28)
[2019-12-22] MEDS: METOPROLOL SUCC (TopROL XL) 100MG *XL* TAB PO SCH (21:29)
[2019-12-23] VITALS (7 sets, daily range): BP systolic 129–188; BP diastolic 52–79
[2019-12-23] MEDS: SLF 3 ML SYR IV SCH ×3 (05:32→21:31)
[2019-12-23 06:40] LABS: HEMATOCRIT 36.6 % (36.0-47.0); HEMOGLOBIN 11.3 g/dl (12.0-15.5); MEAN CORPUSCULAR HEMOGLOBIN 27.2 pg (27.0-33.0); MEAN CORPUSCULAR HGB CONC 30.9 g/dl (32.0-36.5); PLATELET COUNT, AUTOMATED 447 10^3/uL (150-450); RED BLOOD COUNT 4.16 10^6/uL (4.00-5.40); WHITE BLOOD COUNT 14.4 10^3/uL (4.0-10.0)
[2019-12-23 07:14] LABS: CALCIUM LEVEL 8.5 MG/DL (8.8-10.2); CREATININE FOR GFR 1.67 MG/DL (0.55-1.30); GLOMERULAR FILTRATION RATE 31.7 (>39); MAGNESIUM LEVEL 1.3 MG/DL (1.8-2.4); POTASSIUM SERUM 3.7 MEQ/L (3.5-5.1)
[2019-12-23] MEDS ORDERED: MAGNESIUM OXIDE 400 MG TAB (MAG-OX) PO SCH (09:00)
[2019-12-23] MEDS: LACTOBACILLUS ACIDOPHILUS CAP (BACID) PO SCH (09:20)
[2019-12-23] MEDS: TORSEMIDE 20 MG TAB PO SCH ×2 (09:20→18:15)
[2019-12-23] MEDS: APIXABAN 5 MG TAB (ELIQUIS) PO SCH ×2 (09:21→21:25)
[2019-12-23] MEDS: CALCIUM ACETATE 667 MG GELCAP PO SCH ×3 (09:21→18:00)
[2019-12-23] MEDS: HumaLOG INSULIN (NovoLOG) PER UNIT SC SCH ×4 (09:21→21:00)
--- NOTE | 2019-12-23 15:51 | IPNPDOC ---
Date Seen The patient was seen on 12/23/19. Progress Note SUBJECTIVE: No acute complaints. 24 hour urine to be completed this afternoon. Denies chest pain, shortness of breath, n/v/d. OBJECTIVE: VITAL SIGNS: Please see below. PHYSICAL EXAMINATION: GENERAL: In NAD, resting in bedside chair. AAOx 3 RESPIRATORY: Diminished with mild crackles in bilateral bases , No wheezing, rhonchi or rales. CVS: S1, S2 +, RRR, left lower sternal border 2/6 systolic murmur. GI: soft, Nontender. Nondistended. Anicteric sclerae. No jaundice. Moist mucous membranes. CHEST: Port right upper chest EXT: No cyanosis or clubbing. No pitting edema. NEURO: CN 2-12 intact, sensory and motor in tact, no focal deficits. LABORATORY DATA: Please see below. Imaging: No new imaging. ASSESSMENT: 79-year-old female with end stage renal disease on HD with improving Systolic (EF 35-40 %) CHF exacerbation, ESRD on HD. PLAN: 1. Systolic (EF 35-40 %) CHF exacerbation, pleural effusions. On RA doing well, does not require O2 at rest and with exercise. On fluid restriction 1500 cc/day, -910 mL/24 hours. Last BNP improved to 11,376. C/w strict ins and outs, daily weight, fluid restriction, diuretics as per nephrology. 2. End stage renal disease on maintenance dialysis MWF. Cr improving and may be patient is transitioning off of dialysis per nephrology. 24 hour urine will be finished with collecting this afternoon and sent off. Likely receive results in the AM. C/w Shola, daily labs. 3. Hypomagnesemia. S/p 400 mg Po 12/22/19. Mag 1.3 today, given 1 gm IV and started on BID magnesium oxide. F/u AM mag level. 4. Depression. C/w Prozac. 5. History of pericardial effusion. No acute issues currently with small pericardial effusion on CT of chest. 6. History of atrial fibrillation and CVA, chronic. Stable. C/w LUIS Tim 7. Dyslipidemia. C/w Lipitor. 8. Anemia of chronic disease due to renal failure. No acute indication for red blood cell (RBC) transfusion. Venofer and Aranesp was given with HD earlier this week. 9. Hypertension. Stable. C/w current meds. 10. DVT px. Eliquis DISPOSITION: Currently under inpatient status. Plan is for home when medically improved. Nephrology following. VS, I&O, 24H, Fishbone Vital Signs/I&O Vital Signs Date Time Temp Pulse Resp B/P (MAP) Pulse Ox O2 Delivery O2 Flow Rate FiO2 12/23/19 12:00 97.6 60 20 137/64 (88) 90 Room Air 12/22/19 08:00 1.0 I&O- Last 24 Hours up to 6 AM 12/23/19 06:00 Intake Total 390 ml Output Total 1600 ml Balance -1210 ml Laboratory Data 24H LABS Laboratory Tests 2 12/22/19 16:55: Bedside Glucose (Misc Panel) 196H 12/22/19 21:19: Bedside Glucose (Misc Panel) 149H 12/23/19 06:19: Nucleated Red Blood Cells % (auto) 0.0, Anion Gap 8, Glomerular Filtration Rate 31.7L, Calcium Level 8.5L, Magnesium Level 1.3L 12/23/19 12:32: Bedside Glucose (Misc Panel) 155H CBC/BMP Laboratory Tests 12/23/19 06:19 Microbiology Microbiology 12/19/19 Respiratory Panel (PCR) - Final, Complete 12/19/19 Blood Culture - Preliminary, Resulted No Growth after 72 hours. All specime... 12/19/19 Blood Culture - Preliminary, Resulted No Growth after 72 hours. All specime... Current Medications Current Medications Medications (Trade) Dose Ordered Sig/Renetta Route PRN Reason Start Time Stop Time Status Last Admin Dose Admin Acetaminophen (Tylenol Tab) 650 mg Q4HP PRN PO PAIN OR FEVER 12/20/19 02:30 12/20/19 21:15 Apixaban (Eliquis) 5 mg BID PO 12/19/19 21:00 12/23/19 09:21 Atorvastatin Calcium (Lipitor) 20 mg QPM PO 12/19/19 21:00 12/22/19 21:28 Calcium Acetate (Phoslo) 667 mg WM PO 12/20/19 08:00 12/23/19 09:21 Darbepoetin Francisco (Aranesp (Dialysis Use)) 100 mcg HD IV 12/20/19 07:30 Dextrose (Dextrose 50%) 25 ml ASDIRECTED PRN IV SEE LABEL COMMENTS 12/19/19 22:15 Enoxaparin Sodium (Lovenox) 30 mg DAILY SC 12/20/19 09:00 12/19/19 19:32 DC Fluoxetine HCl (PROzac) 20 mg QPM PO 12/19/19 21:00 12/22/19 21:28 Glucagon (Glucagon) 1 mg ASDIRECTED PRN SC SEE LABEL COMMENTS 12/19/19 22:15 Glucose (Glucose) 16 GM ASDIRECTED PRN PO SEE LABEL COMMENTS 12/19/19 22:15 Home Med (Med Rec Complete!) ASDIRECTED XX 12/19/19 20:15 12/19/19 20:23 DC Insulin Human Lispro (HumaLOG INSULIN) SEE PROTOCOL TABLE AC SC 12/20/19 07:30 12/23/19 12:52 Insulin Human Lispro (HumaLOG INSULIN) SEE PROTOCOL TABLE QHS SC 12/19/19 21:00 Iron (Venofer) 100 mg HD IV 12/20/19 07:30 Lactobacillus Acidophilus (Bacid) 1 ea DAILY PO 12/20/19 09:00 12/23/19 09:20 Magnesium Oxide (Mag-Ox) 400 mg DAILY PO 12/23/19 09:00 12/23/19 09:21 Metoprolol Succinate (TopROL XL) 200 mg QPM PO 12/19/19 21:00 12/22/19 21:29 Simethicone (Mylicon) 80 mg PC PRN PO GAS PAIN 12/19/19 22:15 Sodium Chloride (Saline Lock Flush) 2 ml ASDIRECTED PRN IV SEE LABEL COMMENTS 12/20/19 00:15 Sodium Chloride (Saline Lock Flush) 2 ml SLF IV 12/20/19 06:00 12/23/19 14:23 Torsemide (Demadex) 40 mg BID@09,17 PO 12/20/19 17:00 12/23/19 09:20 Allergies Coded Allergies: No Known Allergies (Unverified , 10/15/18) Rosa Colón MD Dec 23, 2019 15:51
[2019-12-23] MEDS ORDERED: MAG SULF 1GM/100ML (MAG RUN) 1 GM in IV 1 EA IV ONE (16:00)
[2019-12-23] MEDS ORDERED: LORazepam 2 MG/ML VIAL (J2060) IV ONE (18:00)
[2019-12-23] MEDS: ATORVASTATIN 20 MG TAB PO SCH (21:25)
[2019-12-23] MEDS: FLUoxetine 20 MG CAP PO SCH (21:25)
[2019-12-23] MEDS: METOPROLOL SUCC (TopROL XL) 100MG *XL* TAB PO SCH (21:28)
--- NOTE | 2019-12-23 23:14 | IPN ---
DATE: 12/23/2019 SUBJECTIVE: Patient was seen and examined at the bedside today morning. She was awake and alert. She was sitting up on the sofa. She denies any shortness of breath. She continues to be on oral diuretics. She has not been dialyzed since Friday. She denies any active complaints at this time. 24-hour urine is being collected, and results will be available in the evening today. OBJECTIVE: Vital signs: Temperature is 96.9 degrees Fahrenheit. Blood pressure 129/60. Pulse is 60. Respiratory rate of 20. Saturating 93% on room air. Intake and output: Urine output recorded is 1300 mL yesterday, 600 mL so far today since overnight. Weight on the bed scale is 65.8 kg. PHYSICAL EXAMINATION: General: Patient is awake, alert, oriented times three, sitting up on the sofa, in no apparent distress. Head and neck exam: Extraocular muscles intact. Pupils equally round and reactive to light. Mucous membranes are moist. Neck is supple. She has a right internal jugular (IJ) tunneled hemodialysis catheter. Cardiovascular: S1, S2, regular rate. No edema of the bilateral lower extremities. Respiratory: Chest is clear to auscultation bilaterally. Bilateral equal air entry. No rales. No rhonchi. Abdomen: Soft. Positive bowel sounds. Nontender. No organomegaly. Musculoskeletal: No clubbing or cyanosis. Pulses are 2+. Central nervous system (TOOL AND DIE TECHNICIAN): No focal deficit. Power is 5/5 in all extremities. LAB REVIEW: CBC showed WBC 14.4, hemoglobin 11.3, platelets of 447. BMP showed sodium 137, potassium 3.7, chloride 100, bicarbonate 29, BUN 50, creatinine is 1.67, calcium 8.5, magnesium is 1.3. CURRENT INPATIENT MEDICATIONS: Patient's medications were all reviewed by myself. There is one dose of magnesium sulfate 1 gram intravenous (IV) ordered for today. Magnesium oxide orally has been increased to 800 mg by mouth daily. No other significant change in the medications today as compared with yesterday. ASSESSMENT AND PLAN: 1. Renal failure. Patient was dialysis dependent. Her last dialysis was done on 12/20/2019. She is responding well to diuretics. Her creatinine has been staying stable at around 1.7 to 1.6. No urgent need of dialysis today. I will continue to monitor. 24-hour urine creatinine clearance is still pending. 2. Acute decompensated systolic congestive heart failure. Patient continues to tolerate torsemide 40 mg by mouth twice a day. Volume status is optimal. Continue current dose of metoprolol. 3. Atrial fibrillation. Heart rate is controlled with metoprolol. Continue the anticoagulation with Eliquis. 4. Anemia in renal failure. Patient was receiving Aranesp and Venofer with dialysis. Hemoglobin level is improving. If dialysis is permanently stopped, then Aranesp will be changed to on as-needed basis.
[2019-12-24] VITALS: BP 148/64
[2019-12-24 04:00] VITALS: BP 144/69
[2019-12-24] MEDS: SLF 3 ML SYR IV SCH ×2 (05:26→13:50)
[2019-12-24 07:09] LABS: HEMATOCRIT 38.3 % (36.0-47.0); HEMOGLOBIN 12.1 g/dl (12.0-15.5); MEAN CORPUSCULAR HEMOGLOBIN 28.1 pg (27.0-33.0); MEAN CORPUSCULAR HGB CONC 31.6 g/dl (32.0-36.5); MEAN CORPUSCULAR VOLUME 88.9 fl (80.0-96.0); PLATELET COUNT, AUTOMATED 493 10^3/uL (150-450); RED BLOOD COUNT 4.31 10^6/uL (4.00-5.40); WHITE BLOOD COUNT 15.2 10^3/uL (4.0-10.0)
[2019-12-24 07:29] LABS: CALCIUM LEVEL 8.5 MG/DL (8.8-10.2); CREATININE FOR GFR 1.76 MG/DL (0.55-1.30); GLOMERULAR FILTRATION RATE 29.8 (>39); MAGNESIUM LEVEL 1.5 MG/DL (1.8-2.4); POTASSIUM SERUM 3.4 MEQ/L (3.5-5.1)
[2019-12-24 07:31] LABS: CREATININE CLEARANCE, URINE 13.2 ML/MIN (75-115); CREATININE, SERUM 1.8 MG/DL (0.6-1.0)
[2019-12-24] MEDS: HumaLOG INSULIN (NovoLOG) PER UNIT SC SCH ×2 (07:59→13:49)
[2019-12-24 08:00] VITALS: BP 135/64
[2019-12-24] MEDS: TORSEMIDE 20 MG TAB PO SCH (08:00)
[2019-12-24] MEDS: APIXABAN 5 MG TAB (ELIQUIS) PO SCH (08:00)
[2019-12-24] MEDS: LACTOBACILLUS ACIDOPHILUS CAP (BACID) PO SCH (08:00)
[2019-12-24] MEDS: CALCIUM ACETATE 667 MG GELCAP PO SCH ×3 (08:00→16:47)
[2019-12-24] MEDS ORDERED: MAGNESIUM OXIDE 400 MG TAB (MAG-OX) PO ONE (09:00)
[2019-12-24 16:00] VITALS: BP 135/67
[2019-12-24] MEDS ORDERED: MAG400TA PO ×2 (16:01→16:03)
[2019-12-24] MEDS ORDERED: TORS20TA2 PO (16:04)
--- NOTE | 2019-12-24 16:15 | DS.PDOC ---
Discharge Summary General Date of Admission Dec 19, 2019 at 19:24 Date of Discharge 12/24/19 Primary Care Physician: Gigi Barlow M.D. Attending Physician: Rosa Colón MD Specialist/Consultants Involve: ABIMAEL HOOKS MD Discharge Summary HISTORY OF PRESENT ILLNESS: Patient is a 79 y/o F with PMH of systolic congestive heart failure (ejection fraction of 35-40% on echo 10/2019), acute on chronic renal failure leading to e nd stage renal disease on maintenance hemodialysis Friday, Friday, Friday, rheumatoid arthritis, diabetes, hypertension, atrial fibrillation, CVA, pericardial effusion, left pleural effusion, and chronic anemia who presents to the emergency room with two day history of shortness of breath, dyspnea on exertion without weight changes, cough, fever, chills or chest pain. No nausea, vomiting or abdominal pain. The patient has known history of congestive heart failure and presented for further evaluation. In the emergency room (ER), she was found to be fluid overloaded. CT of chest shows pleural effusion bilaterally, left greater than the right, and small pericardial effusion. She was hyperkalemic with potassium of 6.1, BNP >34K. White count of 16,000. Respiratory panel was negative. The patient says she was compliant with her home medications. She was not on fluid restriction. Blood pressures were as high as 213/108. Patient was admitted for further treatment for acute exacerbation of CHF, hypertensive urgency likely 2/2 to end stage renal disease on HD. HOSPITAL COURSE: The patient was continued on HD during her stay along with placing on torsemide PO daily. She was placed on fluid restriction as well by nephrology. BNP continued to steadily improve and patient was gradually weaned off O2. She remained in neg fluid balance with Cr stabilizing. Dr. Hooks ordered 24 hour urine and later showed Cr clearance 13, very poor. Thoughts of taking off of HD were changed and ultimately the patient was decided to need to continue HD. Potassium stabilized and magnesium needed supplementation BID. She was walked with PT/OT and respiratory and found to not need additional home O2. Overnight on 12/23/19 patient became confused and needed a small dose of ativan to calm alejandro n. She slept well and on 12/24/19 she was very pleasant and well rested. On 12/24/19, after HD the patient will be discharged home with follow up with both PCP and outpatient nephrology. She is to resume HD MWF as previously scheduled. Patient is pleasantly confused (as is her baseline) and denies chest pain, n/v/d, shortness of breath, fevers or chills at discharge. PAST MEDICAL HISTORY: 1. Systolic heart failure, ejection fraction 35-40%. 2. Chronic atrial fibrillation. 3. CVA. 4. End stage renal disease on maintenance dialysis. 5. Diabetes. 6. Hypertension. 7. Rheumatoid arthritis. 8. Depression. PAST SURGICAL HISTORY: 1. section. 2. Pericardial window. 3. Cholecystectomy. SOCIAL HISTORY: Smoked a half a pack a day for about 15 years, quit many years ago. Lives with a friend at home. No alcohol use. Health care proxy is Tarun More. The patient says she does not want to be resuscitated or intubated. No chest compressions. No intubation or ventilation. She is DO NOT RESUSCITATE, DO NOT RESUSCITATE. Follows with Dr. Hooks, nephrology. Dr. Barlow PCP. FAMILY HISTORY: Unknown family history- patient has dementia ALLERGIES: No known drug allergies. PHYSICAL EXAMINATION: GENERAL: In NAD, resting in bedside chair. AAOx 3 RESPIRATORY: mild crackles in bilateral bases , No wheezing, rhonchi or rales. CVS: S1, S2 +, RRR, left lower sternal border 2/6 systolic murmur. GI: soft, Nontender. Nondistended. Anicteric sclerae. No jaundice. Moist mucous membranes. CHEST: Port right upper chest EXT: No cyanosis or clubbing. No pitting edema. NEURO: CN 2-12 intact, sensory and motor in tact, no focal deficits. LABORATORY DATA: Please see below. DISCHARGE MEDICATIONS: Please see below. Imaging: No new imaging. ASSESSMENT: 79-year-old female with end stage renal disease on HD with improving Systolic (EF 35-40 %) CHF exacerbation, ESRD on HD. PLAN: 1. Systolic (EF 35-40 %) CHF exacerbation, pleural effusions. On RA doing well, does not require O2 at rest and with exercise. Neg fluid balance daily. Last BNP improved to 11,376. C/w all cardiac meds (incl. diuretics) at discharge, hemodialysis, low salt diet and close follow up with PCP, nephrology, cardiology. 2. End stage renal disease on maintenance dialysis MWF. Cr stayed stable at 1.6, 24 hour urine showed Cr clearance 13. She will remain on HD as schedule. F/u with nephrology as scheduled. 3. Hypomagnesemia. S/p 800 mg Po 12/24/19. Started on 400 mg Po daily at home. F/u levels after discharge by PCP. 4. Depression. C/w Prozac. 5. History of pericardial effusion. No acute issues currently with small pericardial effusion on CT of chest. 6. History of atrial fibrillation and CVA, chronic. Stable. C/w Eliquis, LUIS 7. Dyslipidemia. C/w Lipitor. 8. Anemia of chronic disease due to renal failure. No acute indication for red blood cell (RBC) transfusion. Venofer and Aranesp was given with HD earlier this week. 9. Hypertension. Stable. C/w current meds. 10. DVT px. Eliquis DISPOSITION: Discharge to home today with close f/u with PCP and nephrology. TIME SPENT ON DISCHARGE: Greater than 30 minutes. Vital Signs/I&Os Vital Signs Date Time Temp Pulse Resp B/P (MAP) Pulse Ox O2 Delivery O2 Flow Rate FiO2 12/24/19 08:00 98.4 62 18 135/64 (87) 93 Room Air 12/22/19 08:00 1.0 I&O- Last 24 Hours up to 6 AM 12/24/19 06:00 Intake Total 954 ml Output Total 400 ml Balance 554 ml Laboratory Data Labs 24H Laboratory Tests 2 12/23/19 16:46: Bedside Glucose (Misc Panel) 172H 12/23/19 20:20: Bedside Glucose (Misc Panel) 237H 12/24/19 06:00: Urine Creatinine 38.0, Urine Creatinine 24 Hour 342.0L, Creatinine Clearance 13.2L, Urine Total Volume (Protein) 900 12/24/19 06:55: Nucleated Red Blood Cells % (auto) 0.0, Anion Gap 7L, Glomerular Filtration Rate 29.8L, Calcium Level 8.5L, Magnesium Level 1.5L 12/24/19 07:52: Bedside Glucose (Misc Panel) 290H 12/24/19 13:46: Bedside Glucose (Misc Panel) 90 CBC/BMP Laboratory Tests 12/24/19 06:00 12/24/19 06:55 FSBS Laboratory Tests Test 12/23/19 16:46 12/23/19 20:20 12/24/19 07:52 12/24/19 13:46 Range/Units Bedside Glucose (Misc Panel) 172 237 290 90 83-110 MG/DL Microbiology Microbiology 12/19/19 Respiratory Panel (PCR) - Final, Complete 12/19/19 Blood Culture - Preliminary, Resulted No Growth after 72 hours. All specime... 12/19/19 Blood Culture - Preliminary, Resulted No Growth after 72 hours. All specime... Discharge Medications Scheduled Apixaban (Eliquis) 5 Mg Tablet, 5 MG PO BID, (Reported) Atorvastatin Calcium (Atorvastatin Calcium) 20 Mg Tablet, 20 MG PO QPM, (Reported) Calcium Acetate (Calcium Acetate) 667 Mg Tablet, 667 MG PO WM, (Reported) Cholecalciferol (Vitamin D3) (D3-50) 1,250 Mcg Capsule, 1,250 MCG PO QWEEK, (Reported) SUNDAYS Fluoxetine Hcl (Fluoxetine HCl) 20 Mg Capsule, 20 MG PO QPM, (Reported) L.acidoph/L.bulg/B.bif/S.therm (Mandie-Bid Caplet) 1 Each Tablet, 1 TAB PO DAILY, (Reported) Magnesium Oxide (Magnesium Oxide) 400 Mg Tablet, 400 MG PO BID for magnesium Metoprolol Succinate (Metoprolol Succinate) 200 Mg Tab.er.24h, 200 PO QPM, (Reported) Torsemide (Torsemide) 20 Mg Tablet, 40 MG PO DAILY Scheduled PRN Acetaminophen (Tylenol) 325 Mg Capsule, 650 MG PO QID PRN for PAIN, (Reported) Simethicone (Mi-Acid) 80 Mg Tab.chew, 80 MG PO PC PRN for GAS PAIN, (Reported) Allergies Coded Allergies: No Known Allergies (Unverified , 10/15/18) Rosa Colón MD Dec 24, 2019 16:15
[2019-12-25] MEDS ORDERED: TORSEMIDE 20 MG TAB PO SCH (09:00)
--- NOTE | 2019-12-25 09:50 | IPN ---
DATE OF SERVICE: 12/24/2019 SUBJECTIVE: The patient was seen and examined at the bedside today morning during hemodialysis procedure. The patient's 24-hour urine collection and creatinine clearance was reviewed. Creatinine clearance is only 13, indicating that the patient's renal function has not recovered, so the patient's dialysis was arranged. The patient was tolerating the hemodialysis procedure well. OBJECTIVE: Vital Signs: Temperature is 98.4 degrees Fahrenheit, blood pressure 135/64, pulse is 62, respiratory rate of 18, saturating 93% on room air. Intake and Output: Urine output recorded as 400 mL. Weight in the bed scale is 64.2 kg, which is stable. PHYSICAL EXAMINATION: General: The patient is awake, alert, oriented x3, laying in bed, getting hemodialysis done. Head and Neck Exam: Extraocular muscles intact. Pupils equally round and reactive to light. Mucous membranes are moist. Neck is supple. There is no jugular venous distention (JVD). Cardiovascular: S1, S2, regular rate. No edema of the bilateral lower extremities. Respiratory: Chest is clear to auscultation bilaterally. Bilateral equal air entry. No rales or rhonchi. Abdomen: Soft. Positive bowel sounds. Nontender. No organomegaly. Musculoskeletal: No clubbing or cyanosis. Pulses are 2+. 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 Power is 5/5 in all extremities. LAB REVIEW: Showed WBC of 15.2, hemoglobin 12.1 and platelets of 493. 24-hour urine volume was 900, urine creatinine was 38 and urine creatinine clearance was 13.2. BMP done today morning showed sodium of 139, potassium 3.4, chloride 102, bicarb 30, BUN 57, creatinine 1.76, calcium 8.5, and magnesium 1.5. CURRENT INPATIENT MEDICATIONS: The patient's medications were all reviewed by myself. I have decreased the torsemide dose to 40 mg by mouth daily. No other change in the medications today as compared with yesterday. ASSESSMENT/PLAN: 1. End-stage renal disease. The patient's 24-hour urine creatinine clearance is still less than 15. She would still need to be dialysis dependent. If I see any signs of renal recovery as outpatient, 24-hour urine can be repeated. For now, she will continue Friday, Friday, Friday dialysis. 2. Chronic systolic congestive heart failure. Volume status is significantly better. Diuretic dose has been decreased to 40 mg by mouth daily. Rest of the fluid management will be done with dialysis. 3. Atrial fibrillation. Heart rate is controlled. Continue current dose of metoprolol and Eliquis. 4. Anemia in end-stage renal disease. Continue current dose of Aranesp and Venofer. The rest of the anemia management will be done as outpatient. 5. Disposition. The patient is optimized from a nephrology standpoint and after dialysis if she feels better she can be discharged home.
== END 2019-12-24 17:37 | disposition home health service (06) | DRG 291 ==
LOC: M ED 17:18 → M ED INP 19:24 → ENRESERVDT 19:45 → ENRESERVTM 19:45 → M PCU 23:24
PROVIDERS: ADMIT General Practice; ATTEND Internal Medicine
DX: I13.2 Hypertensive heart and chronic kidney disease with heart failure and with stage 5 chronic kidney disease, or end stage renal disease (principal); I50.23 Acute on chronic systolic (congestive) heart failure; N18.6 End stage renal disease; I48.20 Chronic atrial fibrillation, unspecified; E87.5 Hyperkalemia; M06.9 Rheumatoid arthritis, unspecified; Z79.01 Long term (current) use of anticoagulants; E11.9 Type 2 diabetes mellitus without complications; Z86.73 Personal history of transient ischemic attack (TIA), and cerebral infarction without residual deficits; F32.9 Major depressive disorder, single episode, unspecified; I16.0 Hypertensive urgency; Z66 Do not resuscitate; E78.5 Hyperlipidemia, unspecified; D63.1 Anemia in chronic kidney disease; Z79.899 Other long term (current) drug therapy; Z87.891 Personal history of nicotine dependence

== ENCOUNTER 2020-01-14 15:49 | Emergency (ER) | payer MEDICARE ==
[2020-01-14] MEDS ORDERED: ACETAMINOPHEN TAB 650MG DOSE (2X325MG) PO ONE (16:45)
[2020-01-14 16:58] VITALS: BP 156/67
--- NOTE | 2020-01-14 17:57 | REP ---
REASON FOR EXAM: Headache. COMPARISON EXAM: 12/09/2019, which showed only chronic changes. Today's exam is unchanged from the prior exam. There are old occipital lobe infarctions, and there is cerebral and cerebellar atrophy. The ventricles and sulci are unchanged. The deep white matter is unchanged. There is no shift of the midline structures. There are no extra-axial fluid collections. There is no change in the imaged paranasal sinuses or mastoid air cells. There is no skull fracture. IMPRESSION: No evidence of an acute intracranial hemorrhagic or nonhemorrhagic event. Stable chronic changes, as described above. Electronically Signed by Polo Medina DO 01/15/2020 08:25 A
[2020-02-08] MEDS ORDERED: AMLO5TAB6 PO (13:05)
[2020-02-08] MEDS ORDERED: ALLO100T PO (13:05)
== END 2020-01-14 17:28 | disposition home or self-care (01) ==
LOC: EDBD 15:49 → M ED 15:49
DX: R51 Headache (principal); N18.6 End stage renal disease; I50.42 Chronic combined systolic (congestive) and diastolic (congestive) heart failure; R06.02 Shortness of breath; Z99.2 Dependence on renal dialysis; E11.9 Type 2 diabetes mellitus without complications; I10 Essential (primary) hypertension; I27.20 Pulmonary hypertension, unspecified; F33.9 Major depressive disorder, recurrent, unspecified; Z79.899 Other long term (current) drug therapy; Z79.01 Long term (current) use of anticoagulants

== ENCOUNTER → 2020-01-14 | Outpatient (REF) | payer MEDICARE ==
[~2020-01-14] MED LIST changes: +MAG400TA PO; +METO200T28 PO; +TORS20TA2 PO
[2020-01-14 19:35] LABS: CREATININE, URINE 26.9 MG/DL
[2020-01-14 19:54] LABS: CREATININE, SERUM 1.9 MG/DL (0.6-1.0)
== END ==
LOC: M LAB REF 16:48
PROVIDERS: ATTEND Internal Medicine Nephrology
DX: I50.42 Chronic combined systolic (congestive) and diastolic (congestive) heart failure (principal); R06.02 Shortness of breath; Z99.2 Dependence on renal dialysis

== ENCOUNTER 2020-01-18 12:41 | Outpatient (CLI) | payer MEDICARE ==
[~2020-01-18] VITALS: Ht 149.9 cm; Wt 75.4 kg
[2020-01-18] MEDS ORDERED: diphenhydrAMINE 50MG/ML VIAL (J1200) IV PRN (13:00)
[2020-01-18] MEDS ORDERED: methylPREDNISolone INJ 125 MG/2 ML VIAL (J2930) IV ONE (13:00)
[2020-01-18] MEDS ORDERED: inFLIXimab INJECTION 300 MG in NS 220 ML IV ONE (13:00)
[2020-01-18] MEDS ORDERED: NS 1,000 ML IV SCH (13:00)
[2020-01-18] MEDS ORDERED: ACETAMINOPHEN TAB 650MG DOSE (2X325MG) PO ONE (13:00)
[2020-01-18] MEDS ORDERED: EPINEPHrine INJ 1 MG/ML 1ML AMP IM PRN (13:00)
[2020-01-18] MEDS ORDERED: ALBUTEROL SULFATE 2.5 MG/0.5 ML INH NEB SOLN INH PRN (13:00)
[2020-01-18] MEDS ORDERED: diphenhydrAMINE 25MG CAP PO ONE (13:00)
[2020-01-18] MEDS ORDERED: methylPREDNISolone INJ 125 MG/2 ML VIAL (J2930) IV PRN (13:00)
[2020-01-18 13:45] VITALS: BP 147/62
[2020-01-18 14:00] VITALS: BP 125/83
== END 2020-01-18 15:00 | disposition home or self-care (01) ==
LOC: M INFU 12:41
PROVIDERS: ATTEND Internal Medicine
DX: M05.79 Rheumatoid arthritis with rheumatoid factor of multiple sites without organ or systems involvement (principal)
CPT/HCPCS: 96413; J1745

== ENCOUNTER → 2020-02-10 | Outpatient (CLI) | payer MEDICARE ==
[~2020-02-10] MED LIST changes: +ALLO100T PO; +LIDOCAINE 1% MDV 20ML VIAL As Ordered ONE
[2020-02-10 09:58] VITALS: BP 133/61
--- NOTE | 2020-02-10 12:10 | POST-OPPD ---
Postoperative Procedure Note Date Of Procedure: Feb 10, 2020 Time Of Procedure: 12:08 PREOPERATIVE DIAGNOSIS: renal failure. no longer needs dialysis. POSTOPERATIVE DIAGNOSIS: same FINDINGS: right sided permcath PROCEDURE: The PermCath site was prepped and draped in the usual sterile fashion. Lidocaine was used for local anesthesia. The catheter cuff was dissected out of the soft tissues using blunt dissection. The catheter was removed in it's entirety. Patient tolerated the procedure well, hemostasis achieved and a sterile dressing was applied to the site. This is the entire report of procedure SURGEON: Alex ANESTHESIA: local ESTIMATED BLOOD LOSS: < 5 ml COMPLICATIONS: none POSTOPERATIVE CONDITION: stable JOSE PAREDES MD Feb 10, 2020 12:10
== END ==
LOC: M IRPRO 09:38
PROVIDERS: ATTEND Internal Medicine Nephrology
DX: N17.9 Acute kidney failure, unspecified (principal); I11.0 Hypertensive heart disease with heart failure; I48.91 Unspecified atrial fibrillation; M06.9 Rheumatoid arthritis, unspecified; E11.9 Type 2 diabetes mellitus without complications; E79.0 Hyperuricemia without signs of inflammatory arthritis and tophaceous disease; K76.0 Fatty (change of) liver, not elsewhere classified; I50.42 Chronic combined systolic (congestive) and diastolic (congestive) heart failure; M81.0 Age-related osteoporosis without current pathological fracture; I25.2 Old myocardial infarction

== ENCOUNTER 2020-02-23 15:52 | Emergency (ER) | payer MEDICARE ==
[~2020-02-23] VITALS: Ht 152.4 cm; Wt 63.6 kg
[~2020-02-23 15:52] MED LIST changes: -LIDOCAINE 1% MDV 20ML VIAL As Ordered ONE
[2020-02-23] MEDS ORDERED: PROBCAP14 PO (16:10)
--- NOTE | 2020-02-23 17:10 | REP ---
Bilateral lower extremity Duplex Doppler venous ultrasound: Real time compression and duplex Doppler interrogation of the bilateral lower extremity deep venous system is performed. Bilaterally, the common femoral, superficial femoral and popliteal veins are fully compressible with transducer pressure and demonstrate normal spontaneous and phasic flow, without evidence of deep venous thrombosis. Impression: No evidence of deep venous thrombosis of the bilateral lower extremity femoral popliteal venous system. Electronically Signed by Long Hughes MD 02/23/2020 05:01 P
[2020-02-23 17:22] LABS: VENOUS BASE EXCESS -0.8 (-2.0-2.0); VENOUS HCO3 24.1 MEQ/L (23.0-27.0); VENOUS O2 SATURATION 98.3 % (60.0-80.0); VENOUS PARTIAL PRESSURE CO2 40.4 mmHg (38.0-50.0); VENOUS PARTIAL PRESSURE O2 113.3 mmHg (30.0-50.0); VENOUS PH 7.393 UNITS (7.330-7.430); VENOUS STANDARD HCO3 23.9 MEQ/L; VENOUS TOTAL CO2 25.3 MEQ/L (24.0-28.0)
[2020-02-23 17:26] LABS: BASO # 0.1 10^3/uL (0.0-0.2); BASO % 0.7 % (0.0-1.0); EOS # 0.4 10^3/uL (0.0-0.5); EOS % 2.7 % (0.0-3.0); HEMATOCRIT 33.4 % (36.0-47.0); HEMOGLOBIN 10.7 g/dl (12.0-15.5); LYMPH % 12.3 % (24.0-44.0); MEAN CORPUSCULAR HEMOGLOBIN 29.6 pg (27.0-33.0); MEAN CORPUSCULAR VOLUME 92.3 fl (80.0-96.0); MONO # 1.4 10^3/uL (0.0-0.8); MONO % 8.5 % (0.0-5.0); NEUTROPHILS # 12.1 10^3/uL (1.5-8.5); NEUTROPHILS % 75.3 % (36.0-66.0); PLATELET COUNT, AUTOMATED 360 10^3/uL (150-450); RED BLOOD COUNT 3.62 10^6/uL (4.00-5.40)
[2020-02-23 18:02] LABS: ALBUMIN 2.5 GM/DL (3.2-5.2); BILIRUBIN,DIRECT 0.3 MG/DL (0.0-0.2); BILIRUBIN,TOTAL 0.7 MG/DL (0.2-1.0); THYROID STIMULATING HORMONE 0.621 uIU/ML (0.358-3.740); TOTAL PROTEIN 6.9 GM/DL (6.4-8.2)
--- NOTE | 2020-02-23 18:29 | REPVR ---
PROCEDURE INFORMATION: Exam: CT Chest Without Contrast Exam date and time: 02/23/2020 6:05 PM Age: 79 years old Clinical indication: Chest pain; Additional info: SOB TECHNIQUE: Imaging protocol: Computed tomography of the chest without contrast. 3D rendering: MIP and/or 3D reconstructed images were created by the technologist. Radiation optimization: All CT scans at this facility use at least one of these dose optimization techniques: automated exposure control; mA and/or kV adjustment per patient size (includes targeted exams where dose is matched to clinical indication); or iterative reconstruction. COMPARISON: CT Chest without contrast 12/19/2019 6:25 PM FINDINGS: Lungs: Bilateral ground-glass opacities. Atelectasis lingular lobe. Pleural space: Unremarkable. No pneumothorax. No pleural effusion. Heart: Dense calcifications in the mitral valve. Aorta: The aorta demonstrates mild atherosclerotic calcification. Lymph nodes: Unremarkable. No enlarged lymph nodes. Bones/joints: Healing rib fractures right 3rd through 6th ribs on the right and 3rd through 7th ribs on the left. The spine demonstrates mild degenerative changes. Soft tissues: Unremarkable. IMPRESSION: Bilateral ground-glass opacities. Clinical correlation to exclude pneumonitis suggested. Electronically signed by: Cristo Russo On 02/23/2020 18:29:01 PM
[2020-02-23 19:00] VITALS: O2SAT 86
[2020-02-23 19:04] VITALS: BP 163/75
[2020-02-23] MEDS ORDERED: oxygen (19:13)
--- NOTE | 2020-02-23 20:42 | ECGEPIP ---
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
--- NOTE | 2020-02-24 00:31 | REP ---
CHEST, SINGLE VIEW: Single view of the chest is performed and compared to prior studies, most recent of which is 12/19/2019. Cardiomegaly is again noted. There are bibasilar interstitial densities, which appear stable. No consolidating infiltrate is seen. There is calcification of the thoracic aorta. The mediastinal silhouette is unchanged. Left dual-lead pacemaker is unchanged. Electronically Signed by Long Hughes MD 02/24/2020 09:49 A
--- NOTE | 2020-02-25 11:32 | ED PDOC ---
Post-Departure Follow-Up dr sams faxed formal report of ct chest for fu Malena Gibbons MD Feb 25, 2020 11:32
== END 2020-02-23 22:12 | disposition home or self-care (01) ==
LOC: M ED 15:52
DX: R22.43 Localized swelling, mass and lump, lower limb, bilateral (principal); I11.0 Hypertensive heart disease with heart failure; R91.8 Other nonspecific abnormal finding of lung field; M06.9 Rheumatoid arthritis, unspecified; Z79.899 Other long term (current) drug therapy; Z87.891 Personal history of nicotine dependence; Z95.0 Presence of cardiac pacemaker
CPT/HCPCS: 71045; 71250; 80047; 80076; 82803; 83605; 83880; 84443; 84484; 85025; 87040; 87486; 87581; 87633; 87798; 93005; 93041; 93970; 99285; G0463

== ENCOUNTER 2020-03-29 15:14 | Inpatient (IN) | payer MEDICARE ==
[~2020-03-29 15:14] MED LIST changes: +AMLO1TAB24 PO; -AMLO5TAB6 PO; +PROBCAP14 PO; +oxygen
[2020-03-29] MEDS ORDERED: INSULIN REGULAR 100UNITS IN 0.9% SODIUM CHLORIDE 100ML IVBAG As Ordered ONE (18:21)
[2020-03-29] MEDS ORDERED: INSULIN REGULAR 100UNITS IN 0.9% SODIUM CHLORIDE 100ML IVBAG ONE (18:21)
[2020-03-29] MEDS ORDERED: cefTRIAXone SOD 1GM VIAL (J0696 PER 250MG) As Ordered ONE (19:56)
[2020-03-29] MEDS ORDERED: cefTRIAXone SOD 1GM VIAL (J0696 PER 250MG) ONE (19:56)
[2020-03-30] MEDS ORDERED: VANCOMYCIN 1000MG/20ML VIAL As Ordered ONE (03:08)
[2020-03-30] MEDS ORDERED: VANCOMYCIN 1000MG/20ML VIAL ONE (03:08)
[2020-03-30] MEDS ORDERED: APIXABAN 5 MG TAB (ELIQUIS) ONE (13:15)
[2020-03-30] MEDS ORDERED: amLODIPine 5 MG TAB As Ordered ONE (13:15)
[2020-03-30] MEDS ORDERED: LEVEMIR (INSULIN DETEMIR) 1 UNITS/0.01ML ONE (13:15)
[2020-03-30] MEDS ORDERED: HumaLOG INSULIN (NovoLOG) PER UNIT ONE ×2 (13:15→17:53)
[2020-03-30] MEDS ORDERED: allopurinoL 100 MG TAB ONE (13:15)
[2020-03-30] MEDS ORDERED: allopurinoL 100 MG TAB As Ordered ONE (13:15)
[2020-03-30] MEDS ORDERED: MAGNESIUM OXIDE 400 MG TAB (MAG-OX) ONE (13:15)
[2020-03-30] MEDS ORDERED: APIXABAN 5 MG TAB (ELIQUIS) As Ordered ONE (13:15)
[2020-03-30] MEDS ORDERED: amLODIPine 5 MG TAB ONE (13:15)
[2020-03-30] MEDS ORDERED: MAGNESIUM OXIDE 400 MG TAB (MAG-OX) As Ordered ONE (13:15)
[2020-03-30] MEDS ORDERED: LEVEMIR (INSULIN DETEMIR) 1 UNITS/0.01ML As Ordered ONE (13:16)
[2020-03-30] MEDS ORDERED: HumaLOG INSULIN (NovoLOG) PER UNIT As Ordered ONE ×2 (13:17→17:53)
[2020-03-31] MEDS ORDERED: FLUoxetine 20 MG CAP As Ordered ONE (00:02)
[2020-03-31] MEDS ORDERED: ATORVASTATIN 20 MG TAB ONE (00:02)
[2020-03-31] MEDS ORDERED: ATORVASTATIN 20 MG TAB As Ordered ONE (00:02)
[2020-03-31] MEDS ORDERED: HumaLOG INSULIN (NovoLOG) PER UNIT ONE ×3 (00:02→13:01)
[2020-03-31] MEDS ORDERED: FLUoxetine 20 MG CAP ONE (00:02)
[2020-03-31] MEDS ORDERED: METOPROLOL SUCC (TopROL XL) 100MG *XL* TAB ONE ×2 (00:02→13:00)
[2020-03-31] MEDS ORDERED: METOPROLOL SUCC (TopROL XL) 100MG *XL* TAB As Ordered ONE (00:02)
[2020-03-31] MEDS ORDERED: APIXABAN 5 MG TAB (ELIQUIS) ONE ×2 (00:02→09:33)
[2020-03-31] MEDS ORDERED: MAGNESIUM OXIDE 400 MG TAB (MAG-OX) ONE ×2 (00:02→09:33)
[2020-03-31] MEDS ORDERED: HumaLOG INSULIN (NovoLOG) PER UNIT As Ordered ONE ×3 (00:03→13:01)
[2020-03-31] MEDS ORDERED: MAGNESIUM OXIDE 400 MG TAB (MAG-OX) As Ordered ONE ×2 (00:03→09:33)
[2020-03-31] MEDS ORDERED: APIXABAN 5 MG TAB (ELIQUIS) As Ordered ONE ×2 (00:04→09:36)
[2020-03-31] MEDS ORDERED: LACTOBACILLUS ACIDOPHILUS CAP (BACID) ONE (09:33)
[2020-03-31] MEDS ORDERED: allopurinoL 100 MG TAB ONE (09:33)
[2020-03-31] MEDS ORDERED: LEVEMIR (INSULIN DETEMIR) 1 UNITS/0.01ML ONE (09:33)
[2020-03-31] MEDS ORDERED: LACTOBACILLUS ACIDOPHILUS CAP (BACID) As Ordered ONE (09:36)
[2020-03-31] MEDS ORDERED: allopurinoL 100 MG TAB As Ordered ONE (09:36)
[2020-03-31] MEDS ORDERED: LEVEMIR (INSULIN DETEMIR) 1 UNITS/0.01ML As Ordered ONE (09:37)
[2020-03-31] MEDS ORDERED: VITAMIN D 50,000 UNITS CAPSULE (ERGOCALCIFEROL 1.25MG) ONE (13:00)
[2020-05-06 07:35] LABS: HEMATOCRIT 38.8 % (36.0-47.0); HEMOGLOBIN 12.1 g/dl (12.0-15.5); MEAN CORPUSCULAR HGB CONC 31.2 g/dl (32.0-36.5); PLATELET COUNT, AUTOMATED 394 10^3/uL (150-450); RED BLOOD COUNT 4.17 10^6/uL (4.00-5.40); WHITE BLOOD COUNT 16.4 10^3/uL (4.0-10.0)
[2020-05-07 07:54] LABS: APPEARANCE, URINE CLEAR (CLEAR); BACTERIA, URINE AUTO NEGATIVE (NEGATIVE); BILIRUBIN, URINE AUTO NEGATIVE (NEGATIVE); BLOOD, URINE BLOOD NEGATIVE (NEGATIVE); COLOR, URINE STRAW (YELLOW); GLUCOSE, URINE (UA) AUTO 3+ mg/dL (NEGATIVE); KETONE, URINE AUTO NEGATIVE (NEGATIVE); LEUKOCYTE ESTERASE, URINE AUTO NEGATIVE (NEGATIVE); NITRITE, URINE AUTO NEGATIVE (NEGATIVE); PROTEIN, URINE AUTO NEGATIVE (NEGATIVE); RBC, URINE AUTO 2 /HPF (0-3); SPECIFIC GRAVITY URINE AUTO 1.013 (1.002-1.035); SQUAMOUS EPITHELIAL CELL UR AU 0 /HPF (0-6); UROBILINOGEN, URINE AUTO 0.2 mg/dL (0.0-2.0); WBC, URINE AUTO 0 /HPF (0-3)
[2020-05-07 09:08] LABS: HEMATOCRIT 38.3 % (36.0-47.0); HEMOGLOBIN 11.8 g/dl (12.0-15.5); MEAN CORPUSCULAR HEMOGLOBIN 28.6 pg (27.0-33.0); MEAN CORPUSCULAR HGB CONC 30.8 g/dl (32.0-36.5); PLATELET COUNT, AUTOMATED 295 10^3/uL (150-450); RED BLOOD COUNT 4.12 10^6/uL (4.00-5.40); WHITE BLOOD COUNT 16.1 10^3/uL (4.0-10.0)
[2020-05-07 13:33] LABS: BLOOD UREA NITROGEN 68 MG/DL (7-18); CALCIUM LEVEL 8.9 MG/DL (8.8-10.2); CARBON DIOXIDE LEVEL 29 MEQ/L (21-32); CHLORIDE LEVEL 88 MEQ/L (98-107); CK-MB VALUE MASS < 1.0 NG/ML (<3.6); CPK CREATINE PHOSPHOKINASE 33 U/L (26-192); CREATININE FOR GFR 1.93 MG/DL (0.55-1.30); GLOMERULAR FILTRATION RATE 26.8 (>39); GLUCOSE, FASTING 940 MG/DL (70-100); MB/CK RELATIVE INDEX 3.03 (< OR =4); POTASSIUM SERUM 4.5 MEQ/L (3.5-5.1); SODIUM LEVEL 126 MEQ/L (136-145); TROPONIN I < 0.02 NG/ML (< 0.10)
[2020-05-07 13:36] LABS: VENOUS PH 7.477 UNITS (7.330-7.430)
[2020-05-07 13:37] LABS: VENOUS BASE EXCESS 3.4 (-2.0-2.0); VENOUS HCO3 26.9 MEQ/L (23.0-27.0); VENOUS O2 SATURATION 99.4 % (60.0-80.0); VENOUS PARTIAL PRESSURE CO2 37.2 mmHg (38.0-50.0); VENOUS PARTIAL PRESSURE O2 164.9 mmHg (30.0-50.0); VENOUS STANDARD HCO3 27.5 MEQ/L
[2020-05-07 13:42] LABS: CHOLESTEROL RISK RATIO 2.757 (<5); PHOSPHORUS LEVEL 3.4 MG/DL (2.5-4.9)
--- NOTE | 2020-05-18 14:31 | ECGEPIP ---
SINUS RHYTHM POSSIBLE LEFT ATRIAL ENLARGEMENT INDETERMINATE AXIS INTRAVENTRICULAR CONDUCTION DELAY ABNORMAL ECG NONSPECIFIC ST & T-WAVE ABNORMALITY NO OLD AVAILABLE SEE SCANNED DOWNTIME REPORT MTDD
--- NOTE | 2020-05-22 08:15 | REP ---
RIGHT UPPER EXTREMITY DOPPLER ULTRASOUND: HISTORY: Right arm pain and swelling. TECHNIQUE: Real time bowens scale and color Doppler evaluation using linear high frequency transducer. FINDINGS: Ultrasound examination demonstrates normal patency and flow characteristics through the jugular vein, subclavian vein, axillary vein, brachial veins and visualized proximal to mid-cephalic vein. The basilic vein is not visualized. No evidence for deep venous thrombosis is appreciated. No abnormal fluid collection or significant subcutaneous edema noted. IMPRESSION: No evidence for deep venous thrombosis of the visualized right upper extremity veins. MTDD
[2020-05-28 14:43] LABS: BASO # 0.2 10^3/uL (0.0-0.2); BASO % 1.2 % (0.0-1.0); EOS # 1.1 10^3/uL (0.0-0.5); EOS % 6.1 % (0.0-3.0); HEMATOCRIT 39.7 % (36.0-47.0); HEMOGLOBIN 12.3 g/dl (12.0-15.5); LYMPH # 2.2 10^3/uL (1.5-5.0); MEAN CORPUSCULAR HEMOGLOBIN 29.2 pg (27.0-33.0); MEAN CORPUSCULAR VOLUME 94.3 fl (80.0-96.0); MONO # 0.9 10^3/uL (0.0-0.8); MONO % 5.1 % (0.0-5.0); NEUTROPHILS # 13.7 10^3/uL (1.5-8.5); NEUTROPHILS % 75.1 % (36.0-66.0); PLATELET COUNT, AUTOMATED 418 10^3/uL (150-450); RED BLOOD COUNT 4.21 10^6/uL (4.00-5.40); WHITE BLOOD COUNT 18.2 10^3/uL (4.0-10.0)
[2020-06-11 11:37] LABS: ABG BASE EXCESS 3.2 (-2.0-2.0); ABG HCO3 27.4 MEQ/L (22.0-26.0); ABG O2 SATURATION 96.8 % (95.0-99.0); ABG PARTIAL PRESSURE O2 88.8 mmHg (75.0-100.0); ABG STANDARD HCO3 27.3 MEQ/L (22.0-26.0); ABG TOTAL CO2 28.6 MEQ/L (23.0-31.0); ABG pH (ARTERIAL) 7.453 UNITS (7.350-7.450)
[2020-06-25 10:46] LABS: ALBUMIN 2.4 GM/DL (3.2-5.2); BILIRUBIN,TOTAL 0.6 MG/DL (0.2-1.0); CALCIUM LEVEL 8.7 MG/DL (8.8-10.2); CREATININE FOR GFR 1.66 MG/DL (0.55-1.30); GLOMERULAR FILTRATION RATE 31.9 (>39); POTASSIUM SERUM 4.6 MEQ/L (3.5-5.1); TOTAL PROTEIN 7.1 GM/DL (6.4-8.2)
[2020-06-25 10:47] LABS: CALCIUM LEVEL 8.6 MG/DL (8.8-10.2); CREATININE FOR GFR 1.64 MG/DL (0.55-1.30); GLOMERULAR FILTRATION RATE 32.3 (>39); MAGNESIUM LEVEL 2.3 MG/DL (1.8-2.4); PHOSPHORUS LEVEL 3.8 MG/DL (2.5-4.9); POTASSIUM SERUM 3.9 MEQ/L (3.5-5.1)
== END 2020-03-31 10:52 | disposition home health service (06) | DRG 638 ==
LOC: M ED 15:14 → M ICU 18:30
PROVIDERS: ADMIT Internal Medicine; ATTEND Internal Medicine
DX: E11.65 Type 2 diabetes mellitus with hyperglycemia (principal); L03.115 Cellulitis of right lower limb; N17.9 Acute kidney failure, unspecified; R41.82 Altered mental status, unspecified; I10 Essential (primary) hypertension; E66.9 Obesity, unspecified; J44.9 Chronic obstructive pulmonary disease, unspecified; K21.9 Gastro-esophageal reflux disease without esophagitis; M10.9 Gout, unspecified; Z99.81 Dependence on supplemental oxygen; Z87.891 Personal history of nicotine dependence; Z91.14 Patient's other noncompliance with medication regimen; Z79.4 Long term (current) use of insulin; Z79.01 Long term (current) use of anticoagulants; Z79.899 Other long term (current) drug therapy

== ENCOUNTER → 2020-08-14 | Outpatient (REF) | payer MEDICARE ==
[2020-08-15 12:10] LABS: BASO # 0.1 10^3/uL (0.0-0.2); BASO % 0.7 % (0.0-1.0); EOS # 0.8 10^3/uL (0.0-0.5); EOS % 4.5 % (0.0-3.0); HEMATOCRIT 34.2 % (36.0-47.0); HEMOGLOBIN 10.8 g/dl (12.0-15.5); LYMPH # 1.8 10^3/uL (1.5-5.0); LYMPH % 9.9 % (24.0-44.0); MEAN CORPUSCULAR HEMOGLOBIN 27.5 pg (27.0-33.0); MEAN CORPUSCULAR HGB CONC 31.6 g/dl (32.0-36.5); MONO # 1.3 10^3/uL (0.0-0.8); MONO % 6.9 % (0.0-5.0); NEUTROPHILS # 14.3 10^3/uL (1.5-8.5); NEUTROPHILS % 77.5 % (36.0-66.0); PLATELET COUNT, AUTOMATED 608 10^3/uL (150-450); RED BLOOD COUNT 3.93 10^6/uL (4.00-5.40); WHITE BLOOD COUNT 18.5 10^3/uL (4.0-10.0)
[2020-08-15 12:57] LABS: ALBUMIN 2.1 GM/DL (3.2-5.2); BILIRUBIN,TOTAL 0.3 MG/DL (0.2-1.0); CALCIUM LEVEL 7.9 MG/DL (8.8-10.2); CHOLESTEROL RISK RATIO 2.096 (<5); CREATININE FOR GFR 1.93 MG/DL (0.55-1.30); GLOMERULAR FILTRATION RATE 26.8 (>39); POTASSIUM SERUM 2.9 MEQ/L (3.5-5.1); TOTAL PROTEIN 6.6 GM/DL (6.4-8.2)
[2020-08-15 13:05] LABS: HEMOGLOBIN A1c 7.7 %
== END ==
LOC: M SFHCCLAY 16:19
PROVIDERS: ATTEND Family Medicine
DX: E11.9 Type 2 diabetes mellitus without complications (principal); I10 Essential (primary) hypertension
CPT/HCPCS: 80053; 80061; 81002; 83036; 85025; G0463

== ENCOUNTER → 2020-12-28 | Outpatient (REF) | payer MEDICARE ==
[~2020-12-28] MED LIST changes: -MAG400TA PO; +MAGN400T35 PO; +SIME80CH5 PO; -SIME80TA PO
[2020-12-29 13:40] LABS: HEMOGLOBIN A1c 9.3 %
== END ==
LOC: M SFHCCLAY 15:58
PROVIDERS: ATTEND Family Medicine
DX: E11.9 Type 2 diabetes mellitus without complications (principal)

== ENCOUNTER → 2021-04-04 | Outpatient (REF) | payer MEDICARE | LOC: M LAB REF 17:37 | PROVIDERS: ATTEND Internal Medicine Nephrology | DX: N18.32 Chronic kidney disease, stage 3b (principal) ==

== ENCOUNTER → 2021-05-10 | Outpatient (REF) | payer MEDICARE | LOC: M SFHCCLAY 14:03 | PROVIDERS: ATTEND Family Medicine | DX: E11.21 Type 2 diabetes mellitus with diabetic nephropathy (principal) ==

== ENCOUNTER → 2021-05-23 | Outpatient (REF) | payer MEDICARE | LOC: M LAB REF 16:56 | PROVIDERS: ATTEND Internal Medicine Nephrology | DX: N18.32 Chronic kidney disease, stage 3b (principal) ==

== ENCOUNTER → 2021-07-23 | Outpatient (REF) | payer MEDICARE | LOC: M LAB REF 16:58 | PROVIDERS: ATTEND Internal Medicine Nephrology | DX: N18.32 Chronic kidney disease, stage 3b (principal) ==

== ENCOUNTER → 2022-05-10 | Outpatient (REF) | payer MEDICARE ==
[2022-05-10 18:16] LABS: CHOLESTEROL RISK RATIO 2.027 (<5)
== END ==
LOC: M LABDRAWC 17:08
PROVIDERS: ATTEND Nurse Practitioner Family
DX: E78.49 Other hyperlipidemia (principal)

== ENCOUNTER → 2022-05-10 | Outpatient (REF) | payer MEDICARE ==
[2022-05-10 17:47] LABS: HEMOGLOBIN A1c 6.8 %
== END ==
LOC: M SFHCCLAY 13:28
PROVIDERS: ATTEND Family Medicine
DX: E11.21 Type 2 diabetes mellitus with diabetic nephropathy (principal)

== ENCOUNTER → 2023-01-09 | Outpatient (REF) | payer MEDICARE ==
[2023-01-09 18:30] LABS: HEMOGLOBIN A1c 6.5 % (4.0-6.0)
== END ==
LOC: M SFHCCLAY 12:22
PROVIDERS: ATTEND Family Medicine
DX: E11.21 Type 2 diabetes mellitus with diabetic nephropathy (principal)

== ENCOUNTER → 2023-04-29 | Outpatient (REF) | payer MEDICARE ==
[2023-04-29 18:21] LABS: HEMATOCRIT 36.1 % (36.0-47.0); MEAN CORPUSCULAR HEMOGLOBIN 27.2 pg (27.0-33.0); MEAN CORPUSCULAR HGB CONC 30.5 g/dl (32.0-36.5); MEAN CORPUSCULAR VOLUME 89.1 fl (80.0-96.0); PLATELET COUNT, AUTOMATED 396 10^3/uL (150-450); RED BLOOD COUNT 4.05 10^6/uL (4.00-5.40); WHITE BLOOD COUNT 15.2 10^3/uL (4.0-10.0)
[2023-04-29 18:33] LABS: HEMOGLOBIN A1c 6.5 % (4.0-6.0)
[2023-04-29 18:47] LABS: ALBUMIN 2.7 G/DL (3.2-5.2); BILIRUBIN,TOTAL 0.3 MG/DL (0.3-1.2); CALCIUM LEVEL 8.5 MG/DL (8.3-10.6); CREATININE FOR GFR 1.71 MG/DL (0.55-1.30); GLOMERULAR FILTRATION RATE 30.6 (>32); TOTAL PROTEIN 6.6 G/DL (5.7-8.2)
[2023-04-29 18:49] LABS: FREE T4 0.87 NG/DL (0.89-1.76); THYROID STIMULATING HORMONE 0.725 uIU/ML (0.55-4.78)
== END ==
LOC: M SFHCCLAY 14:29
PROVIDERS: ATTEND Family Medicine
DX: E11.21 Type 2 diabetes mellitus with diabetic nephropathy (principal); Z12.9 Encounter for screening for malignant neoplasm, site unspecified